=== PATIENT | female | born 1970 | race Caucasian/White ===

== ENCOUNTER 2025-01-03 12:54 | Outpatient (OUT) | payer OTHER, SELFPAY | END 2025-01-03 12:55 | disposition home or self-care (01) | LOC: WC 12:54 | PROVIDERS: PCP Internal Medicine; Visit Provider Physician Assistant | DX: E10.621 Type 1 diabetes mellitus with foot ulcer (principal); L97.521 Non-pressure chronic ulcer of other part of left foot limited to breakdown of skin | CPT/HCPCS: 11042 ==

== ENCOUNTER 2025-01-16 10:26 | Outpatient (OUT) | payer OTHER, SELFPAY | END 2025-01-16 10:27 | disposition home or self-care (01) | LOC: WC 10:26 | PROVIDERS: PCP Internal Medicine; Visit Provider Physician Assistant | DX: E10.621 Type 1 diabetes mellitus with foot ulcer (principal); L97.521 Non-pressure chronic ulcer of other part of left foot limited to breakdown of skin | CPT/HCPCS: G0463 ==

== ENCOUNTER 2025-02-06 15:10 | Outpatient (OUT) | payer OTHER, SELFPAY ==
--- OUTSIDE RECORDS SUMMARY | 2025-02-06 15:33 | XMS_ITS | CCD ---
Author Organization [facility] Care Team Providers [place] Expert Name Role Phone Sherrill Carlin Primary Care Provider [phone] Sherrill Carlin Attending Provider [phone] DO Sherrill Carlin Primary Care Provider [phone] DO Sherrill Carlin Attending Provider MD Buddy Jean Attending Provider Buddy Jean Unavailable DR SHERRILL CARLIN Attending Unavailable RAEGAN, DR MCCARTNEY Admitting Unavailable DR SHERRILL CARLIN Primary Care Unavailable RAEGAN, DR MCCARTNEY Consulting Unavailable JOSS SOARES Consulting Unavailable IVORY KING Consulting Unavailable DO Sherrill Carlin Primary Care Provider MD Buddy Jean Attending Provider SHERRILL CARLIN Referring Unavailable SHERRILL CARLIN Primary Care Unavailable DO Sherrill Carlin Primary Care Provider TONY Avila Attending Provider DO Sherrill Carlin Primary Care Provider MD Buddy Jean Attending Provider Sherrill Carlin Primary Care Unavailable Buddy Jean Attending Unavailable Buddy Jean Admitting Unavailable Rodger Avila Attending Unavailable Rodger Avila Admitting Unavailable Sherrill Carlin Primary Care Unavailable Unavailable Primary Care Provider UnavailGHANSHYAM Sofia Attending Unavailable Sherrill Carlin DO Primary Care Provider [phone] Buddy Jean MD Attending Provider [phone] Sherrill Carlin DO Primary Care Provider SHERRILL THAKUR Attending Unavailable YUHAS, SHERRILL L Referring Unavailable YUHAS, SHERRILL L Primary Care Unavailable YUHAS, SHERRILL L Referring Unavailable YUHAS, SHERRILL L Primary Care Unavailable NICHOLE, SHERRILL C Referring Unavailable YUHAS, SHERRILL L Primary Care Unavailable NICHOLE, SHERRILL Daniels Referring Unavailable YUHAS, SHERRILL L Primary Care Unavailable SHEFALI BAILEY Attending Unavailable YUHAS, SHERRILL L Referring Unavailable YUHAS, SHERRILL L Primary Care Unavailable SHEFALI BAILEY Referring Unavailable YUHAS, SHERRILL L Primary Care Unavailable YUHAS, SHERRILL L Attending Unavailable YUHAS, SHERRILL L Referring Unavailable YUHAS, SHERRILL L Primary Care Unavailable YUHAS, SHERRILL L Attending Unavailable YUHAS, SHERRILL L Referring Unavailable YUHAS, SHERRILL L Primary Care Unavailable Unavailable Unavailable Unavailable Allergies Allergy Classification Reported Allergen(s) Allergy Type Date of Onset Reaction(s) Facility (20 sources) Morphine; Translations: [MORPHINE] Drug Allergy 8 Nausea And Vomiting, Vomiting [facility] (18 sources) Shellfish Propensity to adverse reactions 8 [facility] Other (1 source) Morphine Drug Allergy 4 [facility] Repository (1 source) Shellfish Drug allergy (disorder) 4 [facility] (20 sources) brimonidine; Translations: [BRIMONIDINE] Drug Allergy 2 [facility] (18 sources) Morphine; Translations: [MORPHINE SULFATE] Drug Allergy 2 [facility] (2 sources) SHELLFISH CONTAINING PRODUCTS; Translations: [SHELLFISH CONTAINING PRODUCTS] Propensity to adverse reactions to food (disorder) 8 [facility] (14 sources) Shellfish; Translations: [shellfish derived] Allergy to substance 4 [facility] (1 source) Morphine Drug Allergy 4 [facility] Repository (3 sources) Shellfish Propensity to adverse reactions 8 [facility] Medications Current Medications Medication Drug Class(es) Dates Sig (Normalized) Sig (Original) ascorbic acid 500 mg chewable tablet (13 sources) Vitamin C Start: 04-03-2024 take 1 tablet by mouth once daily as needed Ascorbic Acid (Vitamin C) 500 mg tablet,chewable Active 500 MG PO Daily as needed April 02, 2024 11:00pm atorvastatin 80 mg oral tablet (20 sources) HMG-CoA Reductase Inhibitor Start: 10-29-2024 take 1 tablet by mouth once daily after dinner atorvastatin (LIPITOR) 80 mg tablet Indications: Mixed hyperlipidemia Take 1 tablet (80 mg total) by mouth daily after dinner. 90 tablet 10/29/2024 Active Start: 04-03-2024 End: 09-25-2024 take 2 tablets by mouth once daily Atorvastatin 40 mg tablet Discontinued 80 MG PO Daily April 02, 2024 11:00pm September 25, 2024 7:56am Start: 04-03-2024 End: 09-25-2024 take 80 mg by mouth once daily Atorvastatin Discontinu ed 80 MG PO Daily April 03, 2024 12:00am September 25, 2024 8:56am Start: 08-23-2023 End: 10-29-2024 take 1 tablet by mouth once daily at bedtime Atorvastatin 80 mg tablet Active 80 MG PO Daily at bedtime September 24, 2024 11:00pm take 1 tablet by lanre th every twenty-four hours Atorvastatin Calcium 40 MG 1 tablet Orally Once a day Active biotin 10 mg oral tablet (20 sources) Start: 04-03-2024 take 1 tablet by mouth once daily Biotin 10 mg tablet Active 10 MG PO Daily April 02, 2024 11:00pm biotin 1 mg caps ule Take by mouth. Active take 1 tablet by lanre th every twenty-four hours Biotin Maximum Strength 81812 MCG 1 capsule Orally Once a day Active cetirizine hydrochloride 10 mg oral tablet (20 sources) Histamine-1 Receptor Antagonist Start: 04-03-2024 take 1 tablet by mouth once daily Cetirizine 10 mg tablet Active 10 MG PO Daily April 02, 2024 11:00pm cholecalciferol 0.05 mg oral tablet (13 sources) Vitamin D Start: 04-03-2024 take 1 tablet by mouth once daily Cholecalciferol (Vitamin D3) 50 mcg (2,000 unit) tablet Active 50 MCG PO Daily April 02, 2024 11:00pm clobetasol propionate 0.5 mg/ml topical cream (20 sources) Corticosteroid clobetasoL (TEMOVATE) 0.05 % cream clobetasol 0.05 % topical cream Active End: 11-19-2024 clobetasoL (TEMOVATE) 0.05 % lotion clobetasol 0.05 % lotion 11/19/2024 Discontinued (Patient Stopped On Own) dorzolamide / Timolol (19 sources) Carbonic Anhydrase Inhibitor, beta-Adrenergic Sara Start: 09-25-2024 take 1 drop(s) into the eye(s) once Dorzolamide-Timolol Active 1 DROPS OPHTHALMIC Once September 25, 2024 12:00am Start: 02-09-2024 take 1 drop(s) into the eye(s) every twelve hours dorzolamide-timoloL (COSOPT) 22.3-6.8 mg/mL ophthalmic solution Administer 1 drop into the left eye every 12 (twelve) hours. 30 mL 3 02/09/2024 Active Start: 02-15-2023 take 1 drop(s) into the eye(s) in the morning dorzolamide-timolol (Cosopt) 2-0.5 % ophthalmic solution Administer 1 drop into the left eye in the morning and 1 drop before bedtime. 02/15/2023 Active Start: 02-15-2023 End: 02-09-2024 take 1 drop(s) into the eye(s) twice daily dorzolamide-timoloL (COSOPT) 22.3-6.8 mg/mL ophthalmic solution INSTILL 1 DROP IN THE LEFT EYE TWICE A DAY 30 mL 3 02/15/2023 02/09/2024 Discontinued (Reorder) Dorzolamide-Timolol 22.3-6.8 mg/mL drops (2 sources) Start: 09-25-2024 take 1 drop(s) into the eye(s) once Dorzolamide-Timolol 22.3-6.8 mg/mL drops Active 1 DROPS OPHTHALMIC Once September 24, 2024 11:00pm ergocalciferol 1.25 mg oral capsule (19 sources) Provitamin D2 Compound ergocalciferol (DRISDOL) 1,250 mcg (50,000 unit) capsule Vitamin D2 1,250 mcg (50,000 unit) capsule Active ergocalciferol ( Vitamin D-2) 1.25 MG (33509 UT) capsule Take 50,000 Units by mouth. Active ergocalciferol ( DRISDOL) 1,250 mcg (50,000 unit) capsule Vitamin D2 1,250 mcg (50,000 unit) capsule 0 Active Fluocinonide (12 sources) Corticosteroid Start: 09-25-2024 Fluocinonide 0 .05 % solution Active TOPICAL September 24, 2024 11:00pm Start: 09-25-2024 Fluocinonide A ctive TOPICAL September 25, 2024 12:00am Start: 08-22-2024 End: 10-01-2024 fluocinonide (LIDEX) 0.05 % external solution APPLY TO SCALP 1 OR 2 TIMES DAILY NEEDED FOR ITCHING. AVOID FACE AND NECK 10/01/2024 Active Start: 06-06-2023 End: 01-12-2024 fluocinonide (LIDEX) 0.05 % external solution Apply 1 Application topically in the morning. 0 06/06/2023 01/12/2024 Discontinued (Therapy completed) gabapentin 100 mg oral capsule (20 sources) Anti-epileptic Agent Start: 09-25-2024 End: 09-25-2024 take 1 capsule by mouth once daily as needed Gabapentin 100 mg capsule Active 100 MG PO Daily as needed September 25, 2024 7:58am Start: 11-03-2022 gabapentin (NE URONTIN) 300 mg capsule Indications: Neuropathy TAKE 1 CAPSULE DAILY 90 capsule 3 11/03/2022 Active insulin lispro 100 unt/ml injectable solution (18 sources) Insulin Analog Start: 09-30-2023 HumaLOG U-100 Insulin 100 unit/mL injection Indications: Type 1 diabetes mellitus with nephropathy ([facility]) USE 60 UNITS DAILY VIA INSULIN PUMP 90 mL 3 09/30/2023 Active HumaLOG 100 UNIT /ML Subcutaneous pump with sliding scale Active Insulin Lispro (Humalog U-10 0 Insulin) 100 unit/mL solution (20 sources) Start: 11-14-2024 Insulin Lispro (Humalog U-100 Insulin) 100 unit/mL solution Active 0 SUBCUT .insulin pump 50 November 14, 2024 12:02pm 50 units SQ per day via insulin pump Start: 11-14-2024 End: 11-14-2024 Insulin Lispro (Humalog U-10 0 Insulin) 100 unit/mL solution Discontinued 0 SUBCUT .insulin pump 50 November 14, 2024 12:01pm November 14, 2024 12:02pm 30 units SQ per day via insulin pump Start: 10-01-2024 End: 11-14-2024 Insulin Lispro (Humalog U-10 0 Insulin) 100 unit/mL solution Discontinued 0 SUBCUT .insulin pump October 01, 2024 8:48am November 14, 2024 12:01pm 30 units SQ per day via insulin pump Start: 10-01-2024 Insulin Lispro (Humalog U-100 Insulin) 100 unit/mL solution Active 0 SUBCUT .insulin pump October 01, 2024 8:48am 30 units SQ per day via insulin pump Start: 09-25-2024 End: 10-01-2024 Insulin Lispro (Humalog U-10 0 Insulin) 100 unit/mL solution Discontinued 1 sliding scale dose SUBCUT .insulin pump September 25, 2024 7:57am October 01, 2024 8:52am Start: 09-25-2024 Insulin Lispro (Humalog U-100 Insulin) 100 unit/mL solution Active 1 sliding scale dose SUBCUT .insulin pump September 25, 2024 8:57am Start: 04-03-2024 End: 09-25-2024 Insulin Lispro (Humalog U-10 0 Insulin) 100 unit/mL solution Discontinued 1 sliding scale dose SUBCUT .COMPLEX April 02, 2024 11:00pm September 25, 2024 7:57am ; Start: 04-03-2024 End: 09-25-2024 Insulin Lispro (Humalog U-10 0 Insulin) 100 unit/mL solution Discontinued 1 sliding scale dose SUBCUT .COMPLEX April 03, 2024 12:00am September 25, 2024 8:57am ; Start: 04-03-2024 Insulin Lispro (Humalog U-100 Insulin) 100 unit/mL solution Active 1 sliding scale dose SUBCUT .COMPLEX April 03, 2024 12:00am ; insulin lispro (HumaLOG) 100 UNIT/ML patient supplied pump (3 sources) insulin lispro ( HumaLOG) 100 UNIT/ML patient supplied pump Inject under the skin continuously. Active ketoconazole 20 mg/ml medicated shampoo (20 sources) Azole Antifungal Start: 10-01-2024 ketoconazole (NIZOral) 2 % shampoo Indications: Other seborrheic dermatitis LATHER ON WET HAIR AND LEAVE ON FOR 5 MINUTES THEN RINSE. USE 2 TO 3 TIMES A WEEK 360 mL 11 10/01/2024 Active Start: 10-01-2024 ketoconazole ( NIZOral) 2 % shampoo Indications: Other seborrheic dermatitis LATHER ON WET HAIR AND LEAVE ON FOR 5 MINUTES THEN RINSE. USE 2 TO 3 TIMES A WEEK 360 mL 11 10/01/2024 Active Start: 09-25-2024 Ketoconazole 2 % shampoo Active TOPICAL September 24, 2024 11:00pm Start: 09-25-2024 Ketoconazole A ctive TOPICAL September 25, 2024 12:00am Start: 08-22-2024 End: 10-01-2024 ketoconazole (NIZOral) 2 % s hampoo Indications: Other seborrheic dermatitis LATHER ON WET HAIR AND LEAVE ON FOR 5 MINUTES THEN RINSE. USE 2 TO 3 TIMES A WEEK 360 mL 3 08/22/2024 10/01/2024 Discontinued krill oil 500 mg oral capsule (20 sources) Start: 04-03-2024 End: 09-25-2024 take 1 capsule by mouth once daily Krill Oil 500 mg capsule Active 500 MG PO daily September 25, 2024 7:54am Start: 04-03-2024 End: 09-25-2024 Krill Oil Discontinued MG PO April 03, 2024 12:00am September 25, 2024 8:57am Krill Oil 300 MG capsule Take by mouth. Active [id number] (KRILL OIL) 045-58-36-50 mg capsule Take by mouth. Active [id number] z-txy-[id number] (KRILL OIL) 185-46-06-50 mg capsule Take by mouth. 0 Active Krill Oil 350 MG as directed Orally Active Krill Oil 350 MG as directed Orally Not-Taking L-METHYLFOLATE CALCIUM PO (3 sources) L-METHYLFOLATE CALCIUM PO Metanx (algal oil) 3 mg-35 mg-2 mg-90.314 mg capsule Active latanoprost 0.05 mg/ml ophthalmic solution (6 sources) Prostaglandin Analog Start: 023 take 1 drop(s) into the eye(s) at bedtime latanoprost (Xalatan) 0.005 % ophthalmic solution Administer 1 drop into the left eye at bedtime. 08/05/2023 Active Start: 08-05-2023 End: 01-12-2024 take 1 drop(s) into the eye(s) at bedtime latanoprost (XALATAN) 0.005 % ophthalmic solution INSTILL 1 DROP IN THE LEFT EYE AT BEDTIME, DISCARD 42 DAYS AFTER OPENING 7.5 mL 3 08/05/2023 01/12/2024 Discontinued (Discontinued by another clinician) melatonin 3 mg oral tablet (1 source) take 1 tablet by mouth once daily at bedtime as needed Melatonin 3 MG 1 tablet at bedtime as needed Orally Once a day Active Multi For Her (2 sources) Multi For Her Or ally Active Multivitamin preparation (11 sources) Start: 04-03-2024 take 1 tablet by mouth once daily Multivitamin Active 1 TAB PO Daily April 03, 2024 12:00am Multivitamin tablet (2 sources) Start: 04-03-2024 take 1 tablet by mouth once daily Multivitamin tablet Active 1 TAB PO Daily April 02, 2024 11:00pm pregabalin 100 mg oral capsule (20 sources) Start: 04-03-2024 End: 12-03-2024 take 1 capsule by mouth three times daily Pregabalin 100 mg capsule Active 100 MG PO Three times daily 270 90 December 03, 2024 12:24pm Start: 03-05-2024 pregabalin (LY JYOTI) 100 mg capsule Indications: Diabetic peripheral neuropathy (CMS-HCC) TAKE 1 CAPSULE THREE TIMES A DAY 90 capsule 2 03/05/2024 Active Start: 03-05-2024 pregabalin (LY JYOTI) 100 mg capsule Indications: Diabetic peripheral neuropathy (CMS-HCC) TAKE 1 CAPSULE THREE TIMES A DAY 90 capsule 2 03/05/2024 Active Start: 09-21-2023 End: 06-12-2024 pregabalin (LYRICA) 100 mg c apsule Indications: Diabetic peripheral neuropathy (CMS-HCC) TAKE 1 CAPSULE THREE TIMES A DAY 90 capsule 2 12/13/2023 02/28/2024 Discontinued tacrolimus 0.001 mg/mg topical ointment (6 sources) Calcineurin Inhibitor Immunosuppressant End: 01-12-2024 tacrolimus (Protopic) 0.1 % ointment Apply topically 2 (two) times a day. Active Vitamin C 500 MG (2 sources) take 1 tablet by mouth once daily as needed Vitamin C 500 MG 1 tablet Orally Once a day PRN Active take 1 tablet by mouth once zulema y Vitamin C 500 MG 1 tablet Orally Once a day Active Vitamin D 2000 UNIT (2 sources) take 1 tablet by lanre th once daily Vitamin D 2000 UNIT 1 tablet Orally Once a day Active take 1 tablet by mouth once zulema y Vitamin D 2000 UNIT 1 tablet Orally Once a day Not-Taking Completed/Discontinued Medications Medication Drug Class(es) Dates Sig (Normalized) Sig (Original) apple cider vinegar 500 mg oral tablet (13 sources) Start: 04-03-2024 End: 06-27-2024 take 1 tablet by mouth three times daily Apple Cider Vinegar 500 mg tablet Discontinued 0 PO .COMPLEX April 02, 2024 11:00pm June 27, 2024 9:08am orally tid; Biotin Maximum Strength 70188 MCG (1 source) take 1 capsule by mouth once daily Biotin Maximum Strength 40710 MCG 1 capsule Orally Once a day Not-Taking 2 ml dupilumab 150 mg/ml prefilled syringe (20 sources) Interleukin-4 Receptor alpha Antagonist Start: 07-12-2023 Dupixent 300 MG/2ML injection Indications: Other atopic dermatitis Inject 1 Syringe (300 mg) under the skin every 14 (fourteen) days. 2 each 07/12/2023 Active Start: 01-18-2022 End: 09-25-2024 Dupilumab 300 mg/2 mL syring e Discontinued 300 MG SUBCUT June 27, 2024 9:10am September 25, 2024 7:57am Dupixent hydrocortisone 0.025 mg/mg topical ointment (17 sources) Corticosteroid End: 11-19-2024 hydrocortisone (HYTONE) 2.5 % ointment Apply topically 2 (two) times a day as needed. 11/19/2024 Discontinued (Patient Stopped On Own) [id number]-algal oil (FOLTANX RF/MENTAX) 3 mg-35 mg-2 mg -90.314 mg capsule (16 sources) End: 11-19-2024 olcnnlckw-F9-moI84-algal oil (FOLTANX RF/MENTAX) 3 mg-35 mg-2 mg -90.314 mg capsule Metanx (algal oil) 3 mg-35 mg-2 mg-90.314 mg capsule 11/19/2024 Discontinued (Patient Stopped On Own) [id number] 12-algal oil (FOLTANX RF/MENTAX) 3 mg-35 mg-2 mg -90.314 mg capsule Metanx (algal oil) 3 mg-35 mg-2 mg-90.314 mg capsule Active tbsmkyaim-[id number] 12-algal oil (FOLTANX RF/MENTAX) 3 mg-35 mg-2 mg -90.314 mg capsule Metanx (algal oil) 3 mg-35 mg-2 mg-90.314 mg capsule 0 Active saccharomyces boulardii 250 mg oral capsule (13 sources) Start: 04-03-2024 End: 06-27-2024 take 1 capsule by mouth twice daily Saccharomyces Boulardii (Daily Probiotic (S. Boulardii)) 250 mg capsule Discontinued 250 MG PO Twice daily April 02, 2024 11:00pm June 27, 2024 9:09am Semaglutide (11 sources) Start: 04-30-2024 End: 08-28-2024 Semaglutide 0.25 mg or 0.5 mg (2 mg/3 mL) pen injector Discontinued 0.25 MG SUBCUT every week April 29, 2024 11:00pm August 28, 2024 9:27am [facility] Start: 04-30-2024 End: 08-28-2024 inject 0.25 mg by subcutaneous injection every week Semaglutide Discontinued 0.25 MG SUBCUT every week April 30, 2024 12:00am August 28, 2024 10:27am [facility] Start: 04-30-2024 inject 0.25 mg by price bcutaneous injection every week Semaglutide Active 0.25 MG SUBCUT every week April 30, 2024 12:00am [facility] Semaglutide Base (6 sources) Start: 05-15-2024 End: 06-27-2024 inject 1 mL by subcutaneous injection every week Semaglutide Base Discontinued 0.25 ML SUBCUT every week May 15, 2024 12:00am June 27, 2024 10:08am [facility] Pre-filled Syringes using Semaglutide Base. Dispense 1 mL = (Four 0.25 mL pre-filled syringes) Start: 05-15-2024 inject 1 mL by subcu taneous injection every week Semaglutide Base Active 0.25 ML SUBCUT every week May 15, 2024 12:00am [facility] Pre-filled Syringes using Semaglutide Base. Dispense 1 mL = (Four 0.25 mL pre-filled syringes) Semaglutide Base 0.3 mg/0.25 mL (2 sources) Start: 05-15-2024 End: 06-27-2024 inject 1 mL by subcutaneous injection every week Semaglutide Base 0.3 mg/0.25 mL Discontinued 0.25 ML SUBCUT every week May 14, 2024 11:00pm June 27, 2024 9:08am [facility] Pre-filled Syringes using Semaglutide Base. Dispense 1 mL = (Four 0.25 mL pre-filled syringes) sodium zirconium cyclosilicate 39468 mg powder for oral suspension (20 sources) Start: 04-03-2024 End: 06-27-2024 Sodium Zirconium Cyclosilicate 10 gram powder in packet Discontinued 10 GM PO as needed April 02, 2024 11:00pm June 27, 2024 9:10am Start: 10-31-2023 End: 11-19-2024 LOKELMA 5 gram packet Indica tions: Chronic hyperkalemia MIX AND DRINK 1 PACKET TWO TIMES A WEEK 50 packet 3 01/11/2024 Active Lokelma 10 GM 1 packet dissolved in water Orally 2xweek Active Problems Active Problems Problem Classification Problem Date Documented Date Episodic/Chronic Administrative/socia l admission (18 sources) Patient encounter status; Translations: [Dietary counseling and surveillance] 04-30-2024 Episodic Allergic reactions (18 sources) Atopic dermatitis; Translations: [Other atopic dermatitis] Onset: 2 10-01-2024 Chronic Cataract (2 sources) Presence of intraocular lens; Translations: [Pseudophakia of left eye] Onset: 4 02-09-2024 Chronic Chronic kidney disease (20 sources) Chronic kidney disease stage 3; Translations: [Chronic kidney disease, stage 3 (moderate)] Onset: 2 05-15-2024 Chronic Chronic kidney disease (5 sources) Chronic kidney disease; Translations: [Chronic kidney disease, stage III (moderate)] Onset: 4 Deficiency and other anemia (2 sources) Anemia of renal disease; Translations: [Anemia in chronic kidney disease] Chronic Deficiency and other anemia (2 sources) Anemia in chronic kidney disease; Translations: [Anemia in chronic kidney disease] Chronic Deficiency and other anemia (3 sources) Anemia in chronic kidney disease; Translations: [Anemia in chronic kidney disease] Onset: 4 Chronic Diabetes mellitus with complications (20 sources) Disorder of kidney due to diabetes mellitus; Translations: [Type 2 diabetes mellitus with diabetic chronic kidney disease] Onset: 2 Chronic Diabetes mellitus without complication (20 sources) Patient encounter status; Translations: [Encounter for fitting and adjustment of insulin pump] Onset: 3 04-30-2024 Chronic Disorders of lipid metabolism (20 sources) Dyslipidemia; Translations: [Hyperlipidemia, unspecified] Onset: 2 Chronic Esophageal disorders (16 sources) Gastroesophageal reflux disease; Translations: [Gastro-esophageal reflux disease without esophagitis] Onset: 2 08-20-2022 Chronic Essential hypertension (2 sources) Hypertensive disorder; Translations: [Hypertension, unspecified] Chronic Fluid and electrolyte disorders (20 sources) Hyperkalemia; Translations: [Hyperkalemia] Onset: 2 Episodic Glaucoma (20 sources) Glaucoma; Translations: [Unspecified glaucoma] Onset: 2 08-20-2022 Chronic Headache; including migraine (16 sources) Migraine; Translations: [Migraine, unspecified, not intractable, without status migrainosus] Onset: 2 08-20-2022 Chronic Osteoarthritis (3 sources) Osteoarthritis of right patellofemoral joint; Translations: [Unilateral primary osteoarthritis, right knee] Onset: 4 11-19-2024 Chronic Other aftercare (11 sources) Long-term current use of insulin; Translations: [terminal operations manager (current) use of insulin] 04-30-2024 Episodic Other aftercare (7 sources) terminal operations manager (current) use of insulin; Translations: [Long-term (current) use of insulin] 04-30-2024 Episodic Other congenital anomalies (1 source) Other anophthalmos; Translations: [Other anophthalmos] Onset: 4 Chronic Other congenital anomalies (2 sources) Anophthalmos of right eye; Translations: [Other anophthalmos] 02-09-2024 Chronic Other diseases of kidney and ureters (5 sources) Secondary hyperparathyroidism; Translations: [Secondary hyperparathyroidism of renal origin] 09-25-2024 Chronic Other diseases of kidney and ureters (5 sources) Secondary hyperparathyroidism of renal origin; Translations: [Secondary hyperparathyroidism (of renal origin)] Onset: 4 Chronic Other inflammatory condition of skin (2 sources) Seborrheic dermatitis; Translations: [Other seborrheic dermatitis] 10-01-2024 Episodic Other nervous system disorders (1 source) Other chronic pain; Translations: [OTHER CHRONIC PAIN] Onset: 3 Chronic Other nervous system disorders (7 sources) Peripheral nerve disease ; Translations: [Polyneuropathy, unspecified] 05-28-2024 Chronic Other nervous system disorders (16 sources) Neuropathy; Translations: [Polyneuropathy, unspecified] Onset: 2 11-03-2022 Chronic Other non-traumatic joint disorders (1 source) Pain in right hip; Translations: [PAIN IN RIGHT HIP] Onset: 3 Episodic Other non-traumatic joint disorders (1 source) Pain in right knee; Translations: [PAIN IN RIGHT KNEE] Onset: 3 Episodic Other non-traumatic joint disorders (1 source) Knee pain Onset: 4 Episodic Other nutritional; endocrine; and metabolic disorders (2 sources) Hyperuricemia without signs of inflammatory arthritis and tophaceous disease; Translations: [Hyperuricemia without signs of inflammatory arthritis and tophaceous disease] Onset: 4 Episodic Other nutritional; endocrine; and metabolic disorders (5 sources) Overweight in adulthood with body mass index of 25 or more but less than 30; Translations: [Body mass index (BMI) 29.0-29.9, adult] 04-30-2024 Episodic Other nutritional; endocrine; and metabolic disorders (4 sources) Body mass index (BMI) 29.0-29.9, adult; Translations: [Body Mass Index 29.0-29.9, adult] 04-30-2024 Episodic Other nutritional; endocrine; and metabolic disorders (7 sources) Body mass index 25-29 - overweight; Translations: [Overweight] 05-15-2024 Episodic Other nutritional; endocrine; and metabolic disorders (8 sources) Overweight; Translations: [Overweight] 05-15-2024 Episodic Other nutritional; endocrine; and metabolic disorders (1 source) Body mass index (BMI) 27.0-27.9, adult; Translations: [Body Mass Index 27.0-27.9, adult] 11-14-2024 Episodic Other skin disorders (2 sources) Epidermoid cyst; Translations: [Epidermal cyst] 10-01-2024 Episodic Other upper respiratory disease (16 sources) Allergic rhinitis; Translations: [Allergic rhinitis, unspecified] Onset: 2 08-20-2022 Chronic Spondylosis; intervertebral disc disorders; other back problems (8 sources) Spinal stenosis, lumbar region with neurogenic claudication; Translations: [Spinal stenosis of lumbar region] Onset: 3 Episodic Unclassified (1 source) Eye Exam Onset: 4 Past or Other Problems Problem Classification Problem Date Documented Da te Episodic/Chronic Mood disorders (16 sources) Mood disorders Onset: 08-23-2023 Resolved: 01-12-2024 01-12-2024 Results Test Name Value Interpretation Reference Range Facility No Panel Informationon 11-14 Bedside Glucose 150 [facility] Albumin [Mass/volume] in Ser um or Plasma by Bromocresol green (BCG) dye binding methoOrdered By: Buddy Jean on 09-21-2024 Albumin BCG dye [Mass/Vol] 3.8 g/dL 3.5-5.7 [facility] Albumin BCG dye [Mass/Vol] Albumin [Mass/volume] in Serum or Plasma by Bromocresol green (BCG) dye binding metho 3.5-5.7 [facility] Appearance of UrineOrdered B y: Buddy Jean on 09-21-2024 Appearance (U) Urine appearance Clear [facility] Bacteria [Presence] in Urine by AutomatedOrdered By: Buddy Jean on 09-21-2024 Bacteria Auto Ql (U) Rare [HPF] None Seen [facility] Bacteria Auto Ql (U) Bacteria [Presence] in Urine by Automated None Seen [facility] Bilirubin Test strip Ql (U)O rdered By: Buddy Jean on 09-21-2024 Bilirubin Ql (U) Negative Negative [facility] Bilirubin Ql (U) Bilirubin.total [Presence] in Urine by Test strip Negative [facility] Calcium [Mass/volume] in Ser um or PlasmaOrdered By: Buddy Jean on 09-21-2024 Calcium [Mass/Vol] 9.9 mg/dL Normal 8.6-10.3 [facility] Comment on above: Order Comment: Reaso n for Exam Chronic kidney disease, stage III (moderate);Type 1 diabetes Performed By: #### M G, URIC, [id number], ZEINAB, FE and TIBC, RENAL #### [facility] [address] Calcium [Mass/Vol] Calcium [Mass/volume ] in Serum or Plasma 8.6-10.3 [facility] Carbon dioxide, total [Moles /volume] in Serum or PlasmaOrdered By: Buddy Jean on 09-21-2024 CO2 [Moles/Vol] 31.0 mmol/L Normal 21.0-31.0 [facility] Comment on above: Order Comment: Reaso n for Exam Chronic kidney disease, stage III (moderate);Type 1 diabetes Performed By: #### M G, URIC, [id number], ZEINAB, FE and TIBC, RENAL #### [facility] [address] [place] [address] [place] CO2 [Moles/Vol] Carbon dioxide, tota l [Moles/volume] in Serum or Plasma 21.0-31.0 [facility] Chloride [Moles/volume] in S violetta or PlasmaOrdered By: Buddy Jean on 09-21-2024 Chloride [Moles/Vol] 106 mmol/L Normal 98-107 [facility] Comment on above: Order Comment: Reaso n for Exam Chronic kidney disease, stage III (moderate);Type 1 diabetes Performed By: #### M G, URIC, [id number], ZEINAB, FE and TIBC, RENAL #### [facility] [address] [place] [id number] [place] Chloride [Moles/Vol] Chloride [Moles/volume] in Serum or Plasma 98-107 [facility] Color Auto (U)Ordered By: Ab bijal Jean on 09-21-2024 Color (U) Color of Urine by Auto Yellow [facility] Color of Urine by AutoOrdere d By: Buddy Jean on 09-21-2024 Color (U) Yellow Normal Yellow [facility] Comment on above: Order Comment: Reaso n for Exam Chronic kidney disease, stage III (moderate);Type 1 diabetes Name Collection Type:: Clean-Voided Midstream Performed By: #### A DDONUAPLUS, CUU #### [facility] [address] [place] [address] [place] Creatinine [Mass/volume] in Serum or PlasmaOrdered By: Buddy Jean on 09-21-2024 Creatinine [Mass/Vol] 1.11 mg/dL Normal 0.60-1.20 [facility] Comment on above: Order Comment: Reaso n for Exam Chronic kidney disease, stage III (moderate);Type 1 diabetes Performed By: #### M G, URIC, [id number], ZEINAB, FE and TIBC, RENAL #### [facility] [address] [place], [place] [id number] [place] Creatinine [Mass/Vol] Creatinine [Mass/volume] in Serum or Plasma 0.60-1.20 [facility] Creatinine [Mass/volume] in UrineOrdered By: Buddy Jean on 09-21-2024 Creatinine (U) [Mass/Vol] 180.00 mg/dL [facility] Comment on above: No reference range e stablished Creatinine (U) [Mass/Vol] Creatinine [Mass/volume] in Urine [facility] Comment on above: No reference range e stablished Dipstick and Microscopicon 1 Bacteria,Urine Rare Normal None Seen [facility] Comment on above: Order Comment: Reaso n for Exam Chronic kidney disease, stage III (moderate);Type 1 diabetes Name Collection Type:: Clean-Voided Midstream Performed By: #### A DDONUAPLUS, CUU #### [facility] [address] [place] [address] [place] Bilirubin,Urine Negative Normal Negative [facility] Comment on above: Order Comment: Reaso n for Exam Chronic kidney disease, stage III (moderate);Type 1 diabetes Name Collection Type:: Clean-Voided Midstream Performed By: #### A DDONUAPLUS, CUU #### [facility] [address] Glucose Ql (U) Normal Normal Normal [facility] Comment on above: Order Comment: Reaso n for Exam Chronic kidney disease, stage III (moderate);Type 1 diabetes Name Collection Type:: Clean-Voided Midstream Performed By: #### A DDONUAPLUS, CUU #### [place] [address] [place] Hyaline Casts,Urine 0-8 Normal 0-8 [facility] Comment on above: Order Comment: Reaso n for Exam Chronic kidney disease, stage III (moderate);Type 1 diabetes Name Collection Type:: Clean-Voided Midstream Performed By: #### A DDONUAPLUS, CUU #### [place] [address] [place] Mucus,Urine Rare Normal [facility] Comment on above: Order Comment: Reaso n for Exam Chronic kidney disease, stage III (moderate);Type 1 diabetes Name Collection Type:: Clean-Voided Midstream Result Comment: PERF ORMED BY: [place] [address] PATHOLOGIST [employer] SUPERVISOR VELASQUEZ CARLOS M.D. Performed By: #### A DDONUAPLUS, CUU #### [place] [address] [place] Nitrite,Urine Negative Normal Negative [facility] Comment on above: Order Comment: Reaso n for Exam Chronic kidney disease, stage III (moderate);Type 1 diabetes Name Collection Type:: Clean-Voided Midstream Performed By: #### A DDONUAPLUS, CUU #### [place] [address] [place] Occult Blood,Urine Negative Normal Negative [facility] Comment on above: Order Comment: Reaso n for Exam Chronic kidney disease, stage III (moderate);Type 1 diabetes Name Collection Type:: Clean-Voided Midstream Performed By: #### A DDONUAPLUS, CUU #### [facility] [address] Protein,Urine Negative Normal Negative [facility] Comment on above: Order Comment: Reaso n for Exam Chronic kidney disease, stage III (moderate);Type 1 diabetes Name Collection Type:: Clean-Voided Midstream Performed By: #### A DDONUAPLUS, CUU #### [place] [address] [place] RBC,Urine 1-2 Normal 0-4 [facility] Comment on above: Order Comment: Reaso n for Exam Chronic kidney disease, stage III (moderate);Type 1 diabetes Name Collection Type:: Clean-Voided Midstream Performed By: #### A DDONUAPLUS, CUU #### [place] [address] [place] Specificy [place],Urine 1.018 Normal 1.001-1.030 [facility] Comment on above: Order Comment: Reaso n for Exam Chronic kidney disease, stage III (moderate);Type 1 diabetes Name Collection Type:: Clean-Voided Midstream Performed By: #### A DDONUAPLUS, CUU #### [address] Squamous Epithelial Cell,Urine 5-9 High 0-2 [facility] Comment on above: Order Comment: Reaso n for Exam Chronic kidney disease, stage III (moderate);Type 1 diabetes Name Collection Type:: Clean-Voided Midstream Performed By: #### A DDONUAPLUS, CUU #### [place] [address] [place] Urobilinogen,Urine Normal Normal Normal [facility] Comment on above: Order Comment: Reaso n for Exam Chronic kidney disease, stage III (moderate);Type 1 diabetes Name Collection Type:: Clean-Voided Midstream Performed By: #### A DDONUAPLUS, CUU #### [facility] [address] WBC,Urine 5-9 High 0-4 [facility] Comment on above: Order Comment: Reaso n for Exam Chronic kidney disease, stage III (moderate);Type 1 diabetes Name Collection Type:: Clean-Voided Midstream Performed By: #### A DDONUAPLUS, CUU #### [facility] [address] [place] [address] Epithelial cells.squamous [# /area] in Urine sediment by Automated countOrdered By: Buddy Miranda on 09-21-2024 Epithelial cells.squamous Auto (Urine sed) [#/Area] 5-9 [HPF] High 0-2 [facility] Epithelial cells.squamous Auto (Urine sed) [#/Area] Epithelial cells.squamous [#/area] in Urine sediment by Automated count High 0-2 [facility] Erythrocyte distribution wid th Auto (RBC) [Ratio]Ordered By: Buddy Miranda on 09-21-2024 Erythrocyte distribution width (RBC) [Ratio] Erythrocyte distribution width [Ratio] by Automated count 11.9-15.3 [facility] Erythrocyte distribution wid th [Ratio] by Automated countOrdered By: Buddy Miranda on 09-21-2024 Erythrocyte distribution width (RBC) [Ratio] 14.0 % Normal 11.9-15.3 [facility] Comment on above: Order Comment: Reaso n for Exam Chronic kidney disease, stage III (moderate);Type 1 diabetes Performed By: #### C BCNO #### [facility] [address] [place] [address] Erythrocytes [#/area] in Uri ne sediment by Automated countOrdered By: Buddy Miranda on 09-21-2024 RBC Auto (Urine sed) [#/Area] 1-2 [HPF] 0-4 [facility] RBC Auto (Urine sed) [#/Area] Erythrocytes [#/area] in Urine sediment by Automated count 0-4 [facility] Erythrocytes [#/volume] in B lood by Automated countOrdered By: Buddy Miranda on 09-21-2024 RBC (Bld) [#/Vol] 3.82 10*6/uL Normal 3.60-5.00 [facility] Comment on above: Order Comment: Reaso n for Exam Chronic kidney disease, stage III (moderate);Type 1 diabetes Performed By: #### C BCNO #### [facility] [address] [place] [id number] [place] Ferritin [Mass/volume] in Se rum or PlasmaOrdered By: Buddy Jean on 09-21-2024 Ferritin [Mass/Vol] 41.2 ng/mL Normal 11.0-306.8 [facility] Comment on above: Order Comment: Reaso n for Exam Chronic kidney disease, stage III (moderate);Type 1 diabetes Name Collection Type:: Clean-Voided Midstream Performed By: #### A DDONUAPLUS, CUU #### [facility] [address] [place] [place] [id number] [facility] Ferritin [Mass/Vol] Ferritin [Mass/volume] in Serum or Plasma 11.0-306.8 [facility] Glucose [Mass/volume] in Ser um or PlasmaOrdered By: Buddy Jean on 09-21-2024 Glucose [Mass/Vol] 118 mg/dL High 70-100 [facility] Comment on above: ADA recommended refe rence rangeRandom Glucose Reference Range is dependent on time and content of last meal. Glucose of more than 200 mg/dL in a nonstressed, ambulatory subject supports the diagnosis of Diabetes Mellitus. Order Comment: Reaso n for Exam Chronic kidney disease, stage III (moderate);Type 1 diabetes Result Comment: [place] Glucose Reference Range is dependent on time and content of last meal. Glucose of more than 200 mg/dL in a nonstressed, ambulatory subject supports the diagnosis of Diabetes Mellitus. ADA recommended reference range Performed By: #### M G, URIC, [id number], ZEINAB, FE and TIBC, RENAL #### [facility] [address] [place] [id number] [place] Glucose [Mass/Vol] Glucose [Mass/volume ] in Serum or Plasma High 70-100 [facility] Comment on above: ADA recommended refe rence rangeRandom Glucose Reference Range is dependent on time and content of last meal. Glucose of more than 200 mg/dL in a nonstressed, ambulatory subject supports the diagnosis of Diabetes Mellitus. Glucose [Mass/volume] in Uri ne by Test stripOrdered By: Buddy Jean on 09-21-2024 Glucose Test strip (U) [Mass/Vol] Normal mg/dL Normal [facility] Glucose Test strip (U) [Mass/Vol] Glucose [Mass/volume] in Urine by Test strip Normal [facility] Hematocrit Auto (Bld) [Volum e fraction]Ordered By: Buddy Jean on 09-21-2024 Hematocrit (Bld) [Volume fraction] Hematocrit [Volume Fraction] of Blood by Automated count 34.0-46.4 [facility] Hematocrit [Volume Fraction] of Blood by Automated countOrdered By: Buddy Jean on 09-21-2024 Hematocrit (Bld) [Volume fraction] 37.4 % Normal 34.0-46.4 [facility] Comment on above: Order Comment: Reaso n for Exam Chronic kidney disease, stage III (moderate);Type 1 diabetes Performed By: #### C BCNO #### [facility] [address] Hemoglobin Test strip Ql (U) Ordered By: Buddy Jean on 09-21-2024 Hemoglobin Ql (U) Negative Negative [facility] Hemoglobin Ql (U) Hemoglobin [Presence ] in Urine by Test strip Negative [facility] Hemoglobin [Mass/volume] in BloodOrdered By: Buddy Jean on 09-21-2024 Hemoglobin (Bld) [Mass/Vol] 12.5 g/dL Normal 11.8-15.4 [facility] Comment on above: Order Comment: Reaso n for Exam Chronic kidney disease, stage III (moderate);Type 1 diabetes Performed By: #### C BCNO #### [facility] [address] Hemoglobin (Bld) [Mass/Vol] Hemoglobin [Mass/volume] in Blood 11.8-15.4 [facility] Hemogram CBC Without Diffon 09-21-2024 Mean Corpuscular HGB Conc 33.4 g/dL Normal 32.0-35.0 [facility] Comment on above: Order Comment: Reaso n for Exam Chronic kidney disease, stage III (moderate);Type 1 diabetes Performed By: #### C BCNO #### [address] WBC (Bld) [#/Vol] 4.2 10*3/uL Normal 3.8-11.6 [facility] Comment on above: Order Comment: Reaso n for Exam Chronic kidney disease, stage III (moderate);Type 1 diabetes Performed By: #### C BCNO #### [facility] [address] [place] [address] Hyaline casts [#/area] in Ur ine sediment by Automated countOrdered By: Buddy Miranda on 09-21-2024 Hyaline casts Auto (Urine sed) [#/Area] 0-8 [LPF] 0-8 [facility] Hyaline casts Auto (Urine sed) [#/Area] Hyaline casts [#/area] in Urine sediment by Automated count 0-8 [facility] Iron [Mass/volume] in Serum or PlasmaOrdered By: Buddy Griffithsr on 09-21-2024 Iron [Mass/Vol] 50 ug/dL Normal 50-212 [facility] Comment on above: Order Comment: Reaso n for Exam Chronic kidney disease, stage III (moderate);Type 1 diabetes Name Collection Type:: Clean-Voided Midstream Performed By: #### A DDONUAPLUS, CUU #### [address] Iron [Mass/Vol] Iron [Mass/volume] i n Serum or Plasma 50-212 [facility] Iron and TIBC Profileon 08-29 % Iron Saturation 17.4 % Low 20-[address] [facility] Comment on above: Order Comment: Reaso n for Exam Chronic kidney disease, stage III (moderate);Type 1 diabetes Name Collection Type:: Clean-Voided Midstream Performed By: #### A DDONUAPLUS, CUU #### [address] Total Iron Binding Capacity 287 ug/dL Normal 255-450 [facility] Comment on above: Order Comment: Reaso n for Exam Chronic kidney disease, stage III (moderate);Type 1 diabetes Name Collection Type:: Clean-Voided Midstream Performed By: #### A YUVAL, CUU #### [facility] [address] [place] [address] Iron binding capacity [Mass/ volume] in Serum or PlasmaOrdered By: Buddy Jean on 09-21-2024 Iron binding capacity [Mass/Vol] 287 ug/dL 255-450 [facility] Iron saturation [Mass Fracti on] in Serum or PlasmaOrdered By: Buddy Jean on 09-21-2024 Iron saturation [Mass fraction] 17.4 % Low 20-50 [facility] Ketones Test strip Ql (U)Ord ered By: Buddy Jean on 09-21-2024 Ketones Ql (U) Ketones [Presence] i n Urine by Test strip Negative [facility] Ketones [Presence] in Urine by Test stripOrdered By: Buddy Jean on 09-21-2024 Ketones Ql (U) Negative Normal Negative [facility] Comment on above: Order Comment: Reaso n for Exam Chronic kidney disease, stage III (moderate);Type 1 diabetes Name Collection Type:: Clean-Voided Midstream Performed By: #### A YUVAL CUU #### [facility] [address] [place] [address] Laboratory - Microbiology an d Antimicrobial susceptibilityOrdered By: Buddy Jean on 09-21-2024 Bacteria identified Cx Nom (U) No Growth 2 Days [facility] Leukocyte esterase [Presence ] in Urine by Test stripOrdered By: Buddy Jean on 09-21-2024 Leukocyte esterase Test strip Ql (U) 3+ High Negative [facility] Comment on above: Order Comment: Reaso n for Exam Chronic kidney disease, stage III (moderate);Type 1 diabetes Name Collection Type:: Clean-Voided Midstream Performed By: #### A YUVAL, CUU #### [facility] [address] [place] [address] Leukocyte esterase Test strip Ql (U) Leukocyte esterase [Presence] in Urine by Test strip High Negative [facility] Leukocytes [#/area] in Urine sediment by Automated countOrdered By: Buddy Jean on 09-21-2024 WBC Auto (Urine sed) [#/Area] 5-9 [HPF] High 0-4 [facility] WBC Auto (Urine sed) [#/Area] Leukocytes [#/area] in Urine sediment by Automated count High 0-4 [facility] Leukocytes [#/volume] correc man for nucleated erythrocytes in Blood by Automated counOrdered By: Buddy Jean on 09-21-2024 WBC corrected for nucl RBC Auto (Bld) [#/Vol] 4.2 10*3/uL 3.8-11.6 [facility] WBC corrected for nucl RBC Auto (Bld) [#/Vol] Leukocytes [#/volume] corrected for nucleated erythrocytes in Blood by Automated coun 3.8-11.6 [facility] MCH Auto (RBC) [Entitic mass ]Ordered By: Buddy Jean on 09-21-2024 MCH (RBC) [Entitic mass] MCH [Entitic ma ss] by Automated count 24.7-34.3 [facility] MCH [Entitic mass] by Automa man countOrdered By: Buddy Jean on 09-21-2024 MCH (RBC) [Entitic mass] 32.7 pg Normal 24.7-34.3 [facility] Comment on above: Order Comment: Reaso n for Exam Chronic kidney disease, stage III (moderate);Type 1 diabetes Performed By: #### C BCNO #### [facility] [address] [place] [address] MCHC Auto (RBC) [Mass/Vol]Or dered By: Buddy Jean on 09-21-2024 MCHC (RBC) [Mass/Vol] 33.4 g/dL 32.0-35.0 [facility] MCHC (RBC) [Mass/Vol] MCHC [Mass/volume] by Automated count 32.0-35.0 [facility] MCV Auto (RBC) [Entitic vol] Ordered By: Buddy Jean on 09-21-2024 MCV (RBC) [Entitic vol] MCV [Entitic vol ume] by Automated count 80-100 [facility] MCV [Entitic volume] by Auto mated countOrdered By: Buddy Jean on 09-21-2024 MCV (RBC) [Entitic vol] 97.9 fL Normal 80-100 [facility] Comment on above: Order Comment: Reaso n for Exam Chronic kidney disease, stage III (moderate);Type 1 diabetes Performed By: #### C BCNO #### [facility] [address] [place] [id number] [facility] Magnesium [Mass/volume] in S violetta or PlasmaOrdered By: Buddy Jean on 09-21-2024 Magnesium [Mass/Vol] 2.0 mg/dL Normal 1.9-2.7 [facility] Comment on above: Order Comment: Reaso n for Exam Chronic kidney disease, stage III (moderate);Type 1 diabetes Name Collection Type:: Clean-Voided Midstream Performed By: #### A DDONUAPLUS, CUU #### [facility] [address] [place] [id number] [facility] Magnesium [Mass/Vol] Magnesium [Mass/volume] in Serum or Plasma 1.9-2.7 [facility] Mucus [Presence] in Urine by AutomatedOrdered By: Buddy Jean on 09-21-2024 Mucus Auto Ql (U) Rare [LPF] [facility] Mucus Auto Ql (U) Mucus [Presence] in Urine by Automated [facility] Nitrite Test strip Ql (U)Ord ered By: Buddy Jean on 09-21-2024 Nitrite Ql (U) Negative Negative [facility] Nitrite Ql (U) Nitrite [Presence] i n Urine by Test strip Negative [facility] No Panel InformationOrdered By: Buddy Jean on 09-21-2024 Estimated GFR (CKD-EPI) 58.336 mL/Min [facility] Creatinine Clearance (Chem N/A [facility] Parathyrin.intact [Mass/volu me] in Serum or PlasmaOrdered By: Buddy Jean on 09-21-2024 Parathyrin.intact [Mass/Vol] 33.0 pg/mL [facility] Parathyrin.intact [Mass/Vol] Parathyrin.intact [Mass/volume] in Serum or Plasma [facility] Parathyroid Hormone Intacton 09-21-2024 Parathyroid Hormone Intact 33.0 pg/mL Normal [facility] Comment on above: Order Comment: Reaso n for Exam Chronic kidney disease, stage III (moderate);Type 1 diabetes Result Comment: PERF ORMED BY: [address] [id number] PATHOLOGIST [employer] SUPERVISOR VELASQUEZ CARLOS M.D. Performed By: #### P TH #### [facility] [address] [place] [address] [place] Phosphate [Mass/volume] in S violetta or PlasmaOrdered By: Buddy Griffithsr on 09-21-2024 Phosphate [Mass/Vol] 4.1 mg/dL Normal 2.5-4.5 [facility] Comment on above: Order Comment: Reaso n for Exam Chronic kidney disease, stage III (moderate);Type 1 diabetes Performed By: #### M G, URIC, [id number], ZEINAB, FE and TIBC, RENAL #### [facility] [address] [place] [address] [place] Phosphate [Mass/Vol] Phosphate [Mass/volume] in Serum or Plasma 2.5-4.5 [facility] Platelet mean volume Auto (B ld) [Entitic vol]Ordered By: Buddy Jean on 09-21-2024 Platelet mean volume (Bld) [Entitic vol] Platelet mean volume [Entitic volume] in Blood by Automated count 6.3-10.7 [facility] Platelet mean volume [Entiti c volume] in Blood by Automated countOrdered By: Buddy Jean on 09-21-2024 Platelet mean volume (Bld) [Entitic vol] 10.2 fL Normal 6.3-10.7 [facility] Comment on above: Order Comment: Reaso n for Exam Chronic kidney disease, stage III (moderate);Type 1 diabetes Result Comment: PERF ORMED BY: [address] [address] PATHOLOGIST [employer] SUPERVISOR VELASQUEZ CARLOS M.D. Performed By: #### C BCNO #### [facility] [address] [place] [address] [place] Platelets Auto (Bld) [#/Vol] Ordered By: Buddy Jean on 09-21-2024 Platelets (Bld) [#/Vol] Platelets [#/vol ume] in Blood by Automated count 150-450 [facility] Platelets [#/volume] in Bloo d by Automated countOrdered By: Buddy Miranda on 09-21-2024 Platelets (Bld) [#/Vol] 289 10*3/uL Normal 150-450 [facility] Comment on above: Order Comment: Reaso n for Exam Chronic kidney disease, stage III (moderate);Type 1 diabetes Performed By: #### C BCNO #### [facility] [address] [place] [address] Potassium [Moles/volume] in Serum or PlasmaOrdered By: Budyd Jean on 09-21-2024 Potassium [Moles/Vol] 4.9 mmol/L Normal 3.5-5.1 [facility] Comment on above: Order Comment: Reaso n for Exam Chronic kidney disease, stage III (moderate);Type 1 diabetes Performed By: #### M G, URIC, [id number], ZEINAB, FE and TIBC, RENAL #### [facility] [address] [place] [address] Potassium [Moles/Vol] Potassium [Moles/volume] in Serum or Plasma 3.5-5.1 [facility] Protein Creat Ratio Ur Rando mon 09-21-2024 Creatinine, Urine (Random) 180.00 mg/dL Normal [facility] Comment on above: Order Comment: Reaso n for Exam Chronic kidney disease, stage III (moderate);Type 1 diabetes Name Collection Type:: Clean-Voided Midstream Result Comment: No r eference range established Performed By: #### A DDONUAPLUS, CUU #### [facility] [address] [place] [address] Urine Protein/Creatinine Ratio 56 mg/g{Cre} Normal 0-200 [facility] Comment on above: Order Comment: Reaso n for Exam Chronic kidney disease, stage III (moderate);Type 1 diabetes Name Collection Type:: Clean-Voided Midstream Result Comment: PERF ORMED BY: [place] [address] PATHOLOGIST [employer] SUPERVISOR VELASQUEZ CARLOS M.D. Performed By: #### A YUVAL, CUU #### [place] [address] [place] Protein Test strip (U) [Mass /Vol]Ordered By: Buddy Jean on 09-21-2024 Protein (U) [Mass/Vol] Negative Negative [facility] Protein (U) [Mass/Vol] Protein [Mass/vol ume] in Urine by Test strip Negative [facility] Protein [Mass/volume] in Uri neOrdered By: Buddy Jean on 09-21-2024 Protein (U) [Mass/Vol] 10 mg/dL High 0-9 [facility] Comment on above: Order Comment: Reaso n for Exam Chronic kidney disease, stage III (moderate);Type 1 diabetes Name Collection Type:: Clean-Voided Midstream Performed By: #### A YUVAL, CUU #### [place] [id number] [place] Protein (U) [Mass/Vol] Protein [Mass/vol ume] in Urine High 0-9 [facility] RBC Auto (Bld) [#/Vol]Ordere d By: Buddy Jean on 09-21-2024 RBC (Bld) [#/Vol] Erythrocytes [#/volume] in Blood by Automated count 3.60-5.00 [facility] Renal Function Panelon 09-21 Albumin [Mass/Vol] 3.8 g/dL Normal 3.5-5.7 [facility] Comment on above: Order Comment: Reaso n for Exam Chronic kidney disease, stage III (moderate);Type 1 diabetes Performed By: #### M G, URIC, [id number], ZEINAB, FE and TIBC, RENAL #### [place] [id number] [place] GFR/1.73 sq M.predicted MDRD (S/P/Bld) [Vol rate/Area] 58.336 mL/min/{1.73_m2} Normal [facility] Comment on above: Order Comment: Reaso n for Exam Chronic kidney disease, stage III (moderate);Type 1 diabetes Performed By: #### M G, URIC, [id number], ZEINAB, FE and TIBC, RENAL #### [facility] [address] Serum or plasma anion gap de terminationOrdered By: Buddy Griffithsr on 09-21-2024 Anion gap [Moles/Vol] 8.9 mmol/L Normal 6.0-15.0 [facility] Comment on above: Order Comment: Reaso n for Exam Chronic kidney disease, stage III (moderate);Type 1 diabetes Performed By: #### M G, URIC, [id number], ZEINAB, FE and TIBC, RENAL #### [facility] [address] Anion gap [Moles/Vol] Serum or plasma an ion gap determination 6.0-15.0 [facility] Serum or plasma iron binding capacity measurement (mass/volume)Ordered By: Buddy Jean on 09-21-2024 Iron binding capacity [Mass/Vol] Iron binding capacity [Mass/volume] in Serum or Plasma 255-450 [facility] Serum or plasma iron saturat ion measurement (mass fraction)Ordered By: Buddy Griffithsr on 09-21-2024 Iron saturation [Mass fraction] Iron saturation [Mass Fraction] in Serum or Plasma Low 20-50 [facility] Sodium [Moles/volume] in Ser um or PlasmaOrdered By: Buddy Jean on 09-21-2024 Sodium [Moles/Vol] 141 mmol/L Normal 136-145 [facility] Comment on above: Order Comment: Reaso n for Exam Chronic kidney disease, stage III (moderate);Type 1 diabetes Performed By: #### M G, URIC, [id number], ZEINAB, FE and TIBC, RENAL #### [facility] [address] [place] [id number] [facility] Sodium [Moles/Vol] Sodium [Moles/volume ] in Serum or Plasma 136-145 [facility] Specific gravity Test strip (U) [Rel density]Ordered By: Buddy Jean on 09-21-2024 Specific gravity (U) [Rel density] 1.018 1.001-1.030 [facility] Specific gravity (U) [Rel density] Specific gravity of Urine by Test strip 1.001-1.030 [facility] Transferrin [Mass/volume] in Serum or PlasmaOrdered By: Buddy Jean on 09-21-2024 Transferrin [Mass/Vol] 205 mg/dL Normal 203-362 [facility] Comment on above: Order Comment: Reaso n for Exam Chronic kidney disease, stage III (moderate);Type 1 diabetes Name Collection Type:: Clean-Voided Midstream Performed By: #### A YUVAL, CUU #### [facility] [address] [place] [address] [place] Transferrin [Mass/Vol] Transferrin [Mass/volume] in Serum or Plasma 203-362 [facility] Urate [Mass/volume] in Serum or PlasmaOrdered By: Buddy Jean on 09-21-2024 Urate [Mass/Vol] 6.0 mg/dL Normal 2.3-6.6 [facility] Comment on above: Order Comment: Reaso n for Exam Chronic kidney disease, stage III (moderate);Type 1 diabetes Name Collection Type:: Clean-Voided Midstream Performed By: #### A DDONUAPLUS, CUU #### [facility] [address] [place] [address] [place] Urate [Mass/Vol] Urate [Mass/volume] in Serum or Plasma 2.3-6.6 [facility] Urea nitrogen [Mass/volume] in Serum or PlasmaOrdered By: Buddy Jean on 09-21-2024 Urea nitrogen [Mass/Vol] 27 mg/dL High -25 [facility] Comment on above: Order Comment: Reaso n for Exam Chronic kidney disease, stage III (moderate);Type 1 diabetes Performed By: #### M G, URIC, [id number], ZEINAB, FE and TIBC, RENAL #### [facility] [address] [place] [address] [place] Urea nitrogen [Mass/Vol] Urea nitrogen [Mass/volume] in Serum or Plasma High 7-25 [facility] Urine Cultureon 09-21-2024 Bacteria identified Cx Nom (U) No Growth 2 Days PERFORMED BY: [place] [address] PATHOLOGIST HEARING [employer] ASSEMBLY SUPERVISOR VELASQUEZ CARLOS M.D. Normal [facility] Comment on above: Performed By: #### A DDONUAPLUS, CUU #### [facility] [address] [place] [address] Urine appearanceOrdered By: Buddy Miranda on 09-21-2024 Appearance (U) Clear Normal Clear [facility] Comment on above: Order Comment: Reaso n for Exam Chronic kidney disease, stage III (moderate);Type 1 diabetes Name Collection Type:: Clean-Voided Midstream Performed By: #### A DDONUAPLUS, CUU #### [facility] [address] [place] [address] Urine cultureOrdered By: Abd ul Miranda on 09-21-2024 Bacteria identified Cx Nom (U) Urine culture [facility] Urine protein/creatinine rat ioOrdered By: Buddy Miranda on 09-21-2024 Protein/Creatinine (U) [Ratio] 56 mg/g{Cre} 0-200 [facility] Protein/Creatinine (U) [Ratio] Urine protein/creatinine ratio 0-200 [facility] Urobilinogen Test strip (U) [Mass/Vol]Ordered By: Buddy Miranda on 09-21-2024 Urobilinogen (U) [Mass/Vol] Normal mg/dL Normal [facility] Urobilinogen (U) [Mass/Vol] Urobilinogen [Mass/volume] in Urine by Test strip Normal [facility] Vitamin D 25 Hydroxy Totalon 09-21-2024 Vitamin D 25 Hydroxy Total 58.0 ng/mL Normal 30-100 [facility] Comment on above: Order Comment: Reaso n for Exam Chronic kidney disease, stage III (moderate);Type 1 diabetes Name Collection Type:: Clean-Voided Midstream Result Comment: TOMAS MIN D STATUS 25(OH)VITAMIN D RANGE (ng/mL) Deficient <20 Insufficient 20 to <30 Sufficient 30 to 100 Reference: Obed Gil, Jaimie BAKER, et al. Evaluation,treatment, and prevention of vitamin D deficiency; an Endocrine Society clinical practice guideline. JCEM. 2010; 96(7):191-. PERFORMED BY: [facility] [address] [place] [address] PATHOLOGIST HEARING AID ASSEMBLY SUPERVISOR VELASQUEZ CARLOS M.D. Performed By: #### A JYOTSNA BARAKAT #### [address] Vitamin D+Metabolites [Mass/ volume] in Serum or PlasmaOrdered By: Buddy Jean on 09-21-2024 Vitamin D+Metabolites [Mass/Vol] 58.0 ng/mL 30-100 [facility] Comment on above: VITAMIN D STATUS 25( [place])VITAMIN D RANGE (ng/mL) Deficient <20 Insufficient 20 to <30Sufficient 30 to 100Reference: Obed Gil, Jaimie BAKER, et al. Evaluation,treatment, and prevention of vitamin D deficiency; an Endocrine Society clinical practice guideline. JCEM. 2010; 96(7):1911-. Vitamin D+Metabolites [Mass/Vol] Vitamin D+Metabolites [Mass/volume] in Serum or Plasma 30-100 [facility] Comment on above: VITAMIN D STATUS 25( [place])VITAMIN D RANGE (ng/mL) Deficient <20 Insufficient 20 to <30Sufficient 30 to 100Reference: Obed Gil, Jaimie BAKER, et al. Evaluation,treatment, and prevention of vitamin D deficiency; an Endocrine Society clinical practice guideline. JCEM. 2010; 96(7):1911-. pH Test strip (U)Ordered By: Buddy Jean on 09-21-2024 pH (U) pH of Urine by Test strip 5.0-9.0 [facility] pH of Urine by Test stripOrd ered By: Buddy Jean on 09-21-2024 pH (U) 5.5 [pH] Normal 5.0-9.0 [facility] Comment on above: Order Comment: Reaso n for Exam Chronic kidney disease, stage III (moderate);Type 1 diabetes Name Collection Type:: Clean-Voided Midstream Performed By: #### A DDCAROLINE GUERREROU #### [address] No Panel Informationon 09-10 [facility] Alanine aminotransferase [En zymatic activity/volume] in Serum or PlasmaOrdered By: Rodger Avila on 05-14-2024 ALT [Catalytic activity/Vol] 18 U/L Normal 7-52 [facility] Comment on above: Order Comment: Comme nt fasting Performed By: #### U RMACRERAT, CMP, LIPID, TSH3 wRFLX #### [facility] [address] [place] [address] #### CPEP #### [facility] , Albumin [Mass/volume] in Ser um or Plasma by Bromocresol green (BCG) dye binding methoOrdered By: Rodger Avila on 05-14-2024 Albumin BCG dye [Mass/Vol] 4.0 g/dL 3.5-5.7 [facility] Alkaline phosphatase [Enzyma tic activity/volume] in Serum or PlasmaOrdered By: Rodger Avila on 05-14-2024 ALP [Catalytic activity/Vol] 79 U/L Normal 34-104 [facility] Comment on above: Order Comment: Comme nt fasting Performed By: #### U RMACRERAT, CMP, LIPID, TSH3 wRFLX #### [facility] [address] [place] [address] [place] #### CPEP #### [facility] , Aspartate aminotransferase [ Enzymatic activity/volume] in Serum or PlasmaOrdered By: Rodger Avila on 05-14-2024 AST [Catalytic activity/Vol] 23 U/L Normal 13-39 [facility] Comment on above: Order Comment: Comme nt fasting Performed By: #### U RMACRERAT, CMP, LIPID, TSH3 wRFLX #### [facility] [address] [place] [address] [place] #### CPEP #### [facility] , Bilirubin.total [Mass/volume ] in Serum or PlasmaOrdered By: Tondra Mapus on 05-14-2024 Bilirubin [Mass/Vol] 0.4 mg/dL Normal 0.3-1.0 [facility] Comment on above: Order Comment: Comme nt fasting Performed By: #### U RMACRERAT, CMP, LIPID, TSH3 wRFLX #### [address] #### CPEP #### [facility] , C-Peptideon 05-14-2024 C-Peptide <0.1 Low 1.1-4.4 [facility] Comment on above: Order Comment: Comme nt fasting Result Comment: C-Pe ptide reference interval is for fasting patients. Performed at: [address] [id number] [employer] Developer: Wenceslao Hoyos PhD, Phone: [phone] PERFORMED BY: [place] [address] PATHOLOGIST HEARING A[employer] ASSEMBLY SUPERVISOR VELASQUEZ CARLOS M.D. Performed By: #### U RMACRERAT, CMP, LIPID, TSH3 wRFLX #### [address] #### CPEP #### [facility] , Calcium [Mass/volume] in Ser um or PlasmaOrdered By: Tondra Mapus on 05-14-2024 Calcium [Mass/Vol] 9.9 mg/dL Normal 8.6-10.3 [facility] Comment on above: Order Comment: Comme nt fasting Performed By: #### U RMACRERAT, CMP, LIPID, TSH3 wRFLX #### [address] #### CPEP #### [facility] , Carbon dioxide, total [Moles /volume] in Serum or PlasmaOrdered By: Tondra Mapus on 05-14-2024 CO2 [Moles/Vol] 30.5 mmol/L Normal 21.0-31.0 [facility] Comment on above: Order Comment: Comme nt fasting Performed By: #### U RMACRERAT, CMP, LIPID, TSH3 wRFLX #### [facility] [address] [place] [address] #### CPEP #### [facility] , Chloride [Moles/volume] in S violetta or PlasmaOrdered By: Rodger Avila on 05-14-2024 Chloride [Moles/Vol] 106 mmol/L Normal 98-107 [facility] Comment on above: Order Comment: Comme nt fasting Performed By: #### U RMACRERAT, CMP, LIPID, TSH3 wRFLX #### [facility] [address] [place] [address] #### CPEP #### [facility] , Cholesterol [Mass/volume] in Serum or PlasmaOrdered By: Rodger Avila on 05-14-2024 Cholesterol [Mass/Vol] 157 mg/dL Normal 140-200 [facility] Comment on above: Chol less than 200 m g/dl low riskChol 201-239 mg/dl borderline riskChol 240 mg/dl and greater high risk Order Comment: Comme nt fasting Result Comment: Chol less than 200 mg/dl low risk Chol 201-239 mg/dl borderline risk Chol 240 mg/dl and greater high risk Performed By: #### U RMACRERAT, CMP, LIPID, TSH3 wRFLX #### [facility] [address] [place] [address] [place] #### CPEP #### [facility] , Cholesterol in LDL Calc [Mas s/Vol]Ordered By: Rodger Avila on 05-14-2024 Cholesterol in LDL [Mass/Vol] 76 mg/dL 0-100 [facility] Comment on above: LDL ATP III CLASSIFI CATIONLDL less than 100 mg/dL OptimalLDL 100-129 mg/dL Near or above optimalLDL 130-159 mg/dL Borderline highLDL 160-189 mg/dL HighLDL greater than 189 mg/dL Very high Cholesterol in VLDL Calc [Ma ss/Vol]Ordered By: Rodger Avila on 05-14-2024 Cholesterol in VLDL [Mass/Vol] 22 mg/dL [facility] Comprehensive Metabolic Pane bill 05-14-2024 Albumin [Mass/Vol] 4.0 g/dL Normal 3.5-5.7 [facility] Comment on above: Order Comment: Comme nt fasting Performed By: #### U RMACRERAT, CMP, LIPID, TSH3 wRFLX #### [facility] [address] [place] [address] [place] #### CPEP #### [facility] , GFR/1.73 sq M.predicted MDRD (S/P/Bld) [Vol rate/Area] 56.259 mL/min/{1.73_m2} Normal [facility] Comment on above: Order Comment: Comme nt fasting Performed By: #### U RMACRERAT, CMP, LIPID, TSH3 wRFLX #### [facility] [address] [place] [address] [place] #### CPEP #### [facility] , Creatinine [Mass/volume] in Serum or PlasmaOrdered By: Rodger Avila on 05-14-2024 Creatinine [Mass/Vol] 1.15 mg/dL Normal 0.60-1.20 [facility] Comment on above: Order Comment: Comme nt fasting Performed By: #### U RMACRERAT, CMP, LIPID, TSH3 wRFLX #### [facility] [address] [place] [address] [place] #### CPEP #### [facility] , Creatinine [Mass/volume] in UrineOrdered By: Rodger Avila on 05-14-2024 Creatinine (U) [Mass/Vol] 276.00 mg/dL [facility] Comment on above: No reference range e stablished Glucose [Mass/volume] in Ser um or PlasmaOrdered By: Rodger Avila on 05-14-2024 Glucose [Mass/Vol] 140 mg/dL High 70-100 [facility] Comment on above: ADA recommended refe rence rangeRandom Glucose Reference Range is dependent on time and content of last meal. Glucose of more than 200 mg/dL in a nonstressed, ambulatory subject supports the diagnosis of Diabetes Mellitus. Order Comment: Comme nt fasting Result Comment: [place] om Glucose Reference Range is dependent on time and content of last meal. Glucose of more than 200 mg/dL in a nonstressed, ambulatory subject supports the diagnosis of Diabetes Mellitus. ADA recommended reference range Performed By: #### U RMACRERAT, CMP, LIPID, TSH3 wRFLX #### [facility] [address] [place] [address] #### CPEP #### [facility] , Lipid Panelon 05-14-2024 LDL Cholesterol,Calculated 76 mg/dL Normal 0-100 [facility] Comment on above: Order Comment: Comme nt fasting Result Comment: LDL ATP III CLASSIFICATION LDL less than 100 mg/dL Optimal LDL 100-129 mg/dL Near or above optimal LDL 130-159 mg/dL Borderline high LDL 160-189 mg/dL High LDL greater than 189 mg/dL Very high Performed By: #### U RMACRERAT, CMP, LIPID, TSH3 wRFLX #### [facility] [address] [place] [address] [place] #### CPEP #### [facility] , Triglyceride w/Reflex 110 mg/dL Normal 0-149 [facility] Comment on above: Order Comment: Comme nt fasting Result Comment: TRIG ATP III CLASSIFICATION TRIG less than 150 mg/dL Normal TRIG 150-199 mg/dL Borderline high TRIG 200-500 mg/dL High TRIG greater than 500 mg/dL Very high Standard traceable to the Center for Disease Conrtrol and Prevention (CDC) test method. Performed By: #### U RMACRERAT, CMP, LIPID, TSH3 wRFLX #### [facility] [address] [place] [address] [place] #### CPEP #### [facility] , VLDL CHOLESTEROL 22 mg/dL Normal [facility] Comment on above: Order Comment: Comme nt fasting Performed By: #### U RMACRERAT, CMP, LIPID, TSH3 wRFLX #### [facility] [address] [place] [address] #### CPEP #### [facility] , MicroAlb Creat Ratio,Uon Creatinine, Urine (Random) 276.00 mg/dL Normal [facility] Comment on above: Result Comment: No r eference range established Performed By: #### U RMACRERAT, CMP, LIPID, TSH3 wRFLX #### [address] #### CPEP #### [facility] , Microalbumin/Creatinine Ratio 49.3 mg/g High 0.0-30.0 [facility] Comment on above: Result Comment: 30-3 00 mg/g indicates an increased risk for diabetic nephropathy. Greater than 300 mg/g is consistent with clinical nephropathy. (Am. J. Kidney Disease 1995, 25:107) PERFORMED BY: [place] [address] PATHOLOGIST HEARING AID ASSEMBLY SUPERVISOR VELASQUEZ CARLOS M.D. Performed By: #### U RMACRERAT, CMP, LIPID, TSH3 wRFLX #### [address] #### CPEP #### [facility] , Microalbumin [Mass/volume] i n UrineOrdered By: Tondra Mapus on 05-14-2024 Albumin DL <= 20 mg/L (U) [Mass/Vol] 13.6 mg/dL High 0.0-1.8 [facility] Comment on above: Performed By: #### U RMACRERAT, CMP, LIPID, TSH3 wRFLX #### [address] #### CPEP #### [facility] , No Panel InformationOrdered By: Tondra Mapus on 05-14-2024 C-Peptide <0.1 ng/mL Low 1.1-4.4 [facility] Comment on above: C-Peptide reference interval is for fasting patients.Performed at: - [facility] [id number] Director: Wenceslao Hoyos PhD, Phone: [phone] Estimated GFR (CKD-EPI) 56.259 mL/Min [facility] Creatinine Clearance (Chem N/A [facility] Potassium [Moles/volume] in Serum or PlasmaOrdered By: Tondra Austin on 05-14-2024 Potassium [Moles/Vol] 5.1 mmol/L Normal 3.5-5.1 [facility] Comment on above: Order Comment: Comme nt fasting Performed By: #### U RMACRERAT, CMP, LIPID, TSH3 wRFLX #### [facility] [address] [place] [address] #### CPEP #### [facility] , Protein [Mass/volume] in Ser um or PlasmaOrdered By: Tondra Austin on 05-14-2024 Protein [Mass/Vol] 6.8 g/dL Normal 6.4-8.9 [facility] Comment on above: Order Comment: Comme nt fasting Performed By: #### U RMACRERAT, CMP, LIPID, TSH3 wRFLX #### [facility] [address] [place] [address] #### CPEP #### [facility] , Serum globulin measurement b y calculation (mass/volume)Ordered By: Tondra Austin on 05-14-2024 Globulin (S) [Mass/Vol] 2.8 g/dL Normal [facility] Comment on above: Order Comment: Comme nt fasting Performed By: #### U RMACRERAT, CMP, LIPID, TSH3 wRFLX #### [facility] [address] [place] [address] [place] #### CPEP #### [facility] , Serum or plasma albumin/glob ulin mass ratioOrdered By: Tondra Domius on 05-14-2024 Albumin/Globulin [Mass ratio] 1.4 {ratio} Normal [facility] Comment on above: Order Comment: Comme nt fasting Performed By: #### U RMACRERAT, CMP, LIPID, TSH3 wRFLX #### [facility] [address] [place] [address] [place] #### CPEP #### [facility] , Serum or plasma anion gap de terminationOrdered By: Rodger Avila on 05-14-2024 Anion gap [Moles/Vol] 9.6 mmol/L Normal 6.0-15.0 [facility] Comment on above: Order Comment: Comme nt fasting Performed By: #### U RMACRERAT, CMP, LIPID, TSH3 wRFLX #### [facility] [address] #### CPEP #### [facility] , Serum or plasma high density lipoprotein (HDL) cholesterol measurementOrdered By: Rodger Avila on 05-14-2024 Cholesterol in HDL [Mass/Vol] 59 mg/dL Normal 23-92 [facility] Comment on above: HDL CHOL ATP-III CLA SSIFICATION Cardiovascular RiskHDL > or equal to 60 mg/dL LOWHDL < 40 mg/dL HIGH Order Comment: Comme nt fasting Result Comment: HDL CHOL ATP-III CLASSIFICATION Cardiovascular Risk HDL > or equal to 60 mg/dL LOW HDL < 40 mg/dL HIGH Performed By: #### U RMACRERAT, CMP, LIPID, TSH3 wRFLX #### [facility] [address] [place] [address] [place] #### CPEP #### [facility] , Serum or plasma total choles terol/high density lipoprotein (HDL) cholesterol mass ratOrdered By: Rodger Avila on 05-14-2024 Cholesterol.total/Choles terol in HDL [Mass ratio] 2.7 {ratio} Normal <5.0 [facility] Comment on above: Order Comment: Comme nt fasting Performed By: #### U RMACRERAT, CMP, LIPID, TSH3 wRFLX #### [facility] [address] [place] [address] [place] #### CPEP #### [facility] , Sodium [Moles/volume] in Ser um or PlasmaOrdered By: Tondra Mapus on 05-14-2024 Sodium [Moles/Vol] 141 mmol/L Normal 136-145 [facility] Comment on above: Order Comment: Comme nt fasting Performed By: #### U RMACRERAT, CMP, LIPID, TSH3 wRFLX #### [facility] [address] [place] [address] #### CPEP #### [facility] , Thyroid Stim Hormone w/Rflxo n 05-14-2024 Thyroid Stim Hormone w/Rflx 1.89 u[iU]/mL Normal 0.45-5.33 [facility] Comment on above: Order Comment: Comme nt fasting Result Comment: PERF ORMED BY: [address] [place] [address] PATHOLOGIST HEARING A[employer] ASSEMBLY SUPERVISOR VELASQUEZ CARLOS M.D. Performed By: #### U RMACRERAT, CMP, LIPID, TSH3 wRFLX #### [address] #### CPEP #### [facility] , Thyrotropin [Units/volume] i n Serum or PlasmaOrdered By: Tondra Mapus on 05-14-2024 TSH Qn 1.89 m[IU]/L 0.45-5.33 [facility] Triglyceride [Mass/volume] i n Serum or PlasmaOrdered By: Tondra Mapus on 05-14-2024 Triglyceride [Mass/Vol] 110 mg/dL 0-149 [facility] Comment on above: TRIG ATP III CLASSIF ICATIONTRIG less than 150 mg/dL NormalTRIG 150-199 mg/dL Borderline highTRIG 200-500 mg/dL High TRIG greater than 500 mg/dL Very highStandard traceable to the Center for Disease Conrtrol and Prevention (CDC) test method. Urea nitrogen [Mass/volume] in Serum or PlasmaOrdered By: Rodger Avila on 05-14-2024 Urea nitrogen [Mass/Vol] 29 mg/dL High 7-25 [facility] Comment on above: Order Comment: Comme nt fasting Performed By: #### U RMACRERAT, CMP, LIPID, TSH3 wRFLX #### [facility] [address] #### CPEP #### [facility] , Urine microalbumin/creatinin e mass ratioOrdered By: Rodger Avila on 05-14-2024 Albumin/Creatinine DL <= 20 mg/L (U) [Mass ratio] 49.3 mg/g High 0.0-30.0 [facility] Comment on above: 30-300 mg/g indicate s an increased risk for diabetic nephropathy. Greater than 300 mg/g is consistent with clinical nephropathy. (Am. J. Kidney Disease 1995, 25:107) HbA1c HPLC (Bld) [Mass fract ion]on 04-30-2024 HbA1c (Bld) [Mass fraction] 6.5 % [facility] No Panel Informationon 04-30 Bedside Glucose 211 [facility] No Panel Informationon 02-08 OD Quality: RNFL: GCC: Status: prosthesis - no image OS Quality: fair RNFL: mild inferior, moderate superior GCC: difficult to interpret Status: stable MANUALLY TRANSCRIBED RESULTS [facility] COMPREHENSIVE METABOLIC PANE Bill 01-12-2024 Albumin [Mass/Vol] 3.9 g/dL Normal 3.2-5.3 [facility] Comment on above: Performed By: #### Frances PETE, 79006-1 #### [facility] ([id number]) [address], [address] [place] [address] ALP [Catalytic activity/Vol] 88 U/L Normal 39-130 [facility] Comment on above: Performed By: #### Frances PETE, 80005-7 #### [facility] ([id number]) [address], [address] [place] [address] ALT [Catalytic activity/Vol] 18 U/L Normal 0-31 [facility] Comment on above: Performed By: #### Frances PETE, 52751-7 #### [facility] ([id number]) [address], [address] [place] [address] Anion gap [Moles/Vol] 6 mmol/L Normal 5-[address] [facility] Comment on above: Performed By: #### Frances PETE, 69384-5 #### [facility] ([id number]) [address], [address] [place] [address] AST [Catalytic activity/Vol] 22 U/L Normal 0-41 [facility] Comment on above: Performed By: #### Frances PETE, 73768-2 #### [facility] ([id number]) [address], [address] [place] [address] Bilirubin [Mass/Vol] 0.5 mg/dL Normal 0.3-1.2 [facility] Comment on above: Performed By: #### Frances PETE, [id number] #### [facility] ([id number]) [address], [address] [place] [address] Calcium [Mass/Vol] 9.6 mg/dL Normal 8.5-10.5 [facility] Comment on above: Performed By: #### Frances PETE, [id number] #### [facility] ([id number]) [address], [address] [place] [address] Chloride [Moles/Vol] 102 mmol/L Normal 98-109 [facility] Comment on above: Performed By: #### Frances PETE, 76230-2 #### [facility] ([id number]) [address], [address] [place] [address] CO2 [Moles/Vol] 32 mmol/L Normal 22-32 [facility] Comment on above: Performed By: #### Frances PETE, [id number] #### [facility] ([id number]) [address], [address] [place] [address] Creatinine [Mass/Vol] 1.13 mg/dL High 0.40-1.[address] [facility] Comment on above: Result Comment: METH OD TRACEABLE TO IDMS STANDARD Performed By: #### Frances PETE, [id number] #### [facility] ([id number]) [address], [address] [place] [address] GFR/1.73 sq M.predicted among non-blacks MDRD (S/P/Bld) [Vol rate/Area] 57 mL/min/{1.73_m2} Low >59 [facility] Comment on above: Result Comment: Reported eGFR is based on the CKD-EPI 2020 equation that does not use a race coefficient. Performed By: #### Frances PETE [id number] #### [facility] ([id number]) [address], [address] [place] [address] Glucose [Mass/Vol] 144 mg/dL High 65-99 [facility] Comment on above: Performed By: #### Frances PETE [id number] #### [facility] ([id number]) [address] [address] [place] [address] Potassium [Moles/Vol] 4.7 mmol/L Normal 3.5-5.[address] [facility] Comment on above: Performed By: #### Frances PETE, [id number] #### [facility] ([id number]) [address] [address] [place] [address] Protein [Mass/Vol] 7.1 g/dL Normal 6.0-8.0 [facility] Comment on above: Performed By: #### Frances PETE, 83743-9 #### [facility] ([id number]) [address] [address] [place] [address] Sodium [Moles/Vol] 140 mmol/L Normal 134-146 [facility] Comment on above: Performed By: #### Maxine Daniels [id number] #### [facility] ([id number]) [address], [address] [place] [address] Urea nitrogen [Mass/Vol] 20 mg/dL Normal 5-23 [facility] Comment on above: Performed By: #### C JUAN R, [id number] #### [facility] ([id number]) [address], [address] [place] [address] Comprehensive metabolic pane bill 01-12-2024 Albumin [Mass/Vol] 3.9 g/dL 3.2 - 5.3 g/dL [facility] ALP [Catalytic activity/Vol] 88 U/L 39 - 130 U/L [facility] ALT No additional P-5'-P [Catalytic activity/Vol] 18 U/L 0 - 31 U/L [facility] Anion gap [Moles/Vol] 6 mmol/L 5 - 15 mmol/L [facility] AST [Catalytic activity/Vol] 22 U/L 0 - 41 U/L [facility] Bilirubin [Mass/Vol] 0.5 mg/dL 0.3 - 1 .2 mg/dL [facility] Calcium [Mass/Vol] 9.6 mg/dL 8.5 - 10. 5 mg/dL [facility] Chloride [Moles/Vol] 102 mmol/L 98 - 10 9 mmol/L [facility] CO2 [Moles/Vol] 32 mmol/L 22 - 32 mmol/L [facility] Creatinine [Mass/Vol] 1.13 mg/dL High 0.40 - 1.00 mg/dL [facility] Comment on above: METHOD TRACEABLE TO IDLA STANDARD eGFR (CKD-EPI)non-race dependent 57 Low - PINF [facility] Comment on above: Reported eGFR is based on the CKD-EPI 2020 equation that does not use a race coefficient. Glucose [Mass/Vol] 144 mg/dL High 65 - 99 mg/dL [facility] Interpretation and review of laboratory results Abnormal [facility] Potassium [Moles/Vol] 4.7 mmol/L 3.5 - 5.0 mmol/L [facility] Protein [Mass/Vol] 7.1 g/dL 6.0 - 8.0 g/dL [facility] Sodium [Moles/Vol] 140 mmol/L 134 - 146 mmol/L [facility] Urea nitrogen [Mass/Vol] 20 mg/dL 5 - 23 mg/d L [facility] HGB A1C (GLYCO-HGB)on 2023 Glucose [Mass/Vol] 180 mg/dL Normal [facility] Comment on above: Performed By: #### Frances PETE, [id number] #### [facility] ([id number]) [address] [place] [address] HbA1c (Bld) [Mass fraction] 7.9 % High 4.4-5.6 [facility] Comment on above: Result Comment: NOTE ADA Guidelines Result HgbA1c Normal : less than 5.7 % Prediabetes : 5.7 % to 6.4 % Diabetes : > 6.4 % Use with caution in patients with abnormal hemoglobin variants as the half-life of red blood cells and in vivo glycation rates are affected. Performed By: #### Frances PETE, 75031-4 #### [facility] ([id number]) [address] [place] [address], [facility] [address] [place] [address] Hemoglobin A1con 01-12-2024 Average glucose Estimated from glycated hemoglobin (Bld) [Mass/Vol] 180 mg/dL [facility] HbA1c (Bld) [Mass fraction] 7.9 % High 4.4 - 5.6 % [facility] Comment on above: NOTE ADA Guidelines Result HgbA1c Normal : less than 5.7 % Prediabetes : 5.7 % to 6.4 % Diabetes : > 6.4 % Use with caution in patients with abnormal hemoglobin variants as the half-life of red blood cells and in vivo glycation rates are affected. Interpretation and review of laboratory results Abnormal [facility] - Chemistry and C hemistry - challengeon 01-12-2024 Creatinine (U) [Mass/Vol] 45.94 mg/dL [facility] Cholesterol [Mass/Vol] 186 mg/[facility] Cholesterol in HDL [Mass/Vol] 76 mg/dL [facility] Cholesterol in LDL [Mass/Vol] 94 mg/dL [facility] Cholesterol.total/Choles terol in HDL [Mass ratio] 2.4 {ratio} [facility] Triglyceride [Mass/Vol] 80 mg/dL [facility] Albumin [Mass/Vol] 3.9 g/dL [facility] ALP [Catalytic activity/Vol] 88 U/L [facility] ALT [Catalytic activity/Vol] 18 U/L [facility] AST [Catalytic activity/Vol] 22 U/L [facility] Bilirubin [Mass/Vol] 0.5 mg/dL [facility] Calcium [Mass/Vol] 9.6 mg/dL [facility] Chloride [Moles/Vol] 102 mmol/L [facility] CO2 [Moles/Vol] 32 mmol/L [facility] Creatinine [Mass/Vol] 1.13 mg/dL [facility] GFR/1.73 sq M.predicted MDRD (S/P/Bld) [Vol rate/Area] 57 mL/min/{1.73_m2} [facility] Glucose [Mass/Vol] 144 mg/dL [facility] Potassium [Moles/Vol] 4.7 mmol/L [facility] Protein [Mass/Vol] 7.1 g/dL [facility] Sodium [Moles/Vol] 140 mmol/L [facility] Urea nitrogen [Mass/Vol] 20 mg/dL [facility] Laboratory - Hematology and Cell countson 01-12-2024 HbA1c (Bld) [Mass fraction] 7.9 % [facility] Lipid 1996 panelon 4 Cholesterol [Mass/Vol] 186 mg/dL 150 - 200 mg/dL [facility] Cholesterol in HDL [Mass/Vol] 76 mg/dL 39 - PINF mg/dL [facility] Comment on above: HDL <40 mg/dL - High Risk HDL > or = 40mg/dL- Desirable HDL >60 mg/dL - Negative Risk Cholesterol in LDL [Mass/Vol] 94 mg/dL NINF - 130 mg/dL [facility] Comment on above: LDL <100 mg/dL - Desirable LDL >160 mg/dL - High Risk Cholesterol in VLDL [Mass/Vol] 16 mg/dL 0 - 30 mg/dL [facility] Cholesterol.total/Choles terol in HDL [Mass ratio] 2.4 {ratio} 1.0 - 5.0 [facility] Triglyceride [Mass/Vol] 80 mg/dL 27 - 150 mg/dL [facility] Cholesterol [Mass/Vol] 186 mg/dL Normal 150-200 [facility] Comment on above: Performed By: #### Frances PETE, [id number] #### [facility] ([id number]) [facility] [facility] [place] [address] Cholesterol in HDL [Mass/Vol] 76 mg/dL Normal >39 [facility] Comment on above: Result Comment: HDL <40 mg/dL - High Risk HDL > or = 40mg/dL- Desirable HDL >60 mg/dL - Negative Risk Performed By: #### Frances PETE, 62090-1 #### [facility] ([id number]) [address] [facility] [place] [address] Cholesterol in LDL [Mass/Vol] 94 mg/dL Normal <130 [facility] Comment on above: Result Comment: LDL <100 mg/dL - Desirable LDL >160 mg/dL - High Risk Performed By: #### Frances PETE, [id number] #### [facility] ([id number]) [address] [address] [place] [address] Cholesterol in VLDL [Mass/Vol] 16 mg/dL Normal 0-30 [facility] Comment on above: Performed By: #### Frances PETE, 93267-9 #### [facility] ([id number]) [address] [address] [place] [address] CHOLESTEROL:HDL 2.4 Normal 1.0-5.0 [facility] Comment on above: Performed By: #### Frances PETE, 28047-3 #### [facility] ([id number]) [address] [address] [place] [address] Triglyceride [Mass/Vol] 80 mg/dL Normal 27-150 [facility] Comment on above: Performed By: #### Frances PETE, [id number] #### [facility] ([id number]) [address] [address] [place] [address] MICROALBUMIN - ALBUMIN:CREAT ININE URINE RATIOon 01-12-2024 ALB/CREAT RATIO 43.5 mg/g creat High 0.0-30.0 [facility] Comment on above: Performed By: #### M ALBU #### [facility] ([id number]) [address] [address] [place] [address] Albumin DL <= 20 mg/L (U) [Mass/Vol] 2.0 mg/dL High 0.0-1.9 [facility] Comment on above: Performed By: #### M ALBU #### [facility] ([id number]) [address] [address] [place] [address] URINE CREAT 45.94 mg/dL Normal [facility] Comment on above: Performed By: #### M ALBU #### [facility] ([id number]) [address] [place] [address] Microalbumin - Albumin: Crea tinine Urine Ratioon 01-12-2024 Albumin DL <= 20 mg/L (U) [Mass/Vol] 2.0 mg/dL High 0.0 - 1.9 mg/dL [facility] Albumin/Creatinine DL <= 1.0 mg/L (U) [Ratio] 43.5 High [facility] Creatinine (U) [Mass/Vol] 45.94 mg/dL [facility] Interpretation and review of laboratory results Abnormal [facility][note 3] System No Panel Informationon 01-12 [facility] Urine Microalbumin mg/dl 2.0 [facility] Urine Microalbumin/Creatinine Ratio 43.5 [facility] VLDL Cholesterol 16 mg/dL [facility] Estimated GFR (Non- 57 mL/min [facility] Albumin [Mass/volume] in Ser um or Plasma by Bromocresol green (BCG) dye binding methoOrdered By: Buddy Jean on 09-22-2023 Albumin BCG dye [Mass/Vol] 3.9 g/dL 3.5-5.7 [facility] Automated erythrocytes count in urine sediment (number/area)Ordered By: Buddy Jean on 09-22-2023 RBC Auto (Urine sed) [#/Area] None seen [HPF] 0-4 [facility] Automated leukocytes count i n urine sediment (number/area)Ordered By: Buddy Jean on 09-22-2023 WBC Auto (Urine sed) [#/Area] None seen [HPF] 0-4 [facility] Bilirubin Auto test strip Ql (U)Ordered By: Buddy Jean on 09-22-2023 Bilirubin Ql (U) Negative Negative [facility] Calcium [Mass/volume] in Ser um or PlasmaOrdered By: Buddy Jean on 09-22-2023 Calcium [Mass/Vol] 9.3 mg/dL 8.6-10.3 [facility] Carbon dioxide, total [Moles /volume] in Serum or PlasmaOrdered By: Buddy Jean on 09-22-2023 CO2 [Moles/Vol] 26.1 mmol/L 21.0-31.0 [facility] Chloride [Moles/volume] in S violetta or PlasmaOrdered By: Buddy Jean on 09-22-2023 Chloride [Moles/Vol] 105 mmol/L 98-107 [facility] Creatinine [Mass/volume] in Serum or PlasmaOrdered By: Buddy Jean on 09-22-2023 Creatinine [Mass/Vol] 1.39 mg/dL 0.60-1.20 [facility] Creatinine [Mass/volume] in UrineOrdered By: Buddy Jean on 09-22-2023 Creatinine (U) [Mass/Vol] 120.0 mg/dL 11.0-20.0 [facility] Erythrocyte distribution wid th Auto (RBC) [Ratio]Ordered By: Buddy Jean on 09-22-2023 Erythrocyte distribution width (RBC) [Ratio] 13.5 % 11.9-15.3 [facility] Ferritin [Mass/volume] in Se rum or PlasmaOrdered By: Buddy Jean on 09-22-2023 Ferritin [Mass/Vol] 28.4 ng/mL 11.0-306.8 [facility] Folate [Mass/volume] in Seru m or PlasmaOrdered By: Buddy Jean on 09-22-2023 Folate [Mass/Vol] 30.0 ng/mL >5.9 [facility] Comment on above: Folate reference ran ge: >5.9 ng/mlThe WHO technical consultation on folate and vitamin [id number] has determined that folate concentrations lessthan 4 ng/ml are considered deficient. Glucose [Mass/volume] in Ser um or PlasmaOrdered By: Buddy Jean on 09-22-2023 Glucose [Mass/Vol] 152 mg/dL 70-100 [facility] Comment on above: ADA recommended refe rence rangeRandom Glucose Reference Range is dependent on time and content of last meal. Glucose of more than 200 mg/dL in a nonstressed, ambulatory subject supports the diagnosis of Diabetes Mellitus. Hematocrit Auto (Bld) [Volum e fraction]Ordered By: Buddy Jean on 09-22-2023 Hematocrit (Bld) [Volume fraction] 35.9 % 34.0-46.4 [facility] Hemoglobin [Mass/volume] in BloodOrdered By: Buddy Jean on 09-22-2023 Hemoglobin (Bld) [Mass/Vol] 12.0 g/dL 11.8-15.4 [facility] Iron [Mass/volume] in Serum or PlasmaOrdered By: Buddy Jean on 09-22-2023 Iron [Mass/Vol] 83 ug/dL 50-212 [facility] Iron binding capacity [Mass/ volume] in Serum or PlasmaOrdered By: Buddy Jean on 09-22-2023 Iron binding capacity [Mass/Vol] 321 ug/dL 255-450 [facility] Iron saturation [Mass Fracti on] in Serum or PlasmaOrdered By: Buddy Jean on 09-22-2023 Iron saturation [Mass fraction] 25.9 % 20-50 [facility] Ketones Auto test strip (U) [Mass/Vol]Ordered By: Buddy Jean on 09-22-2023 Ketones (U) [Mass/Vol] Negative Negative Fi [facility] - UrinalysisOrder ed By: Buddy Jean on 09-22-2023 Hyaline casts LM Ql (Urine sed) 0-8 [LPF] 0-8 [facility] Leukocytes [#/volume] correc man for nucleated erythrocytes in Blood by Automated counOrdered By: Buddy Jean on 09-22-2023 WBC corrected for nucl RBC Auto (Bld) [#/Vol] 5.3 10*3/uL 3.8-11.6 [facility] MCH Auto (RBC) [Entitic mass ]Ordered By: Buddy Jean on 09-22-2023 MCH (RBC) [Entitic mass] 32.8 pg 24.7-34.3 [facility] MCHC Auto (RBC) [Mass/Vol]Or dered By: Buddy Jean on 09-22-2023 MCHC (RBC) [Mass/Vol] 33.4 g/dL 32.0-35.0 [facility] MCV Auto (RBC) [Entitic vol] Ordered By: Buddy Jean on 09-22-2023 MCV (RBC) [Entitic vol] 98.3 fL 80-100 [facility] Magnesium [Mass/volume] in S violetta or PlasmaOrdered By: Buddy Jean on 09-22-2023 Magnesium [Mass/Vol] 1.9 mg/dL 1.9-2.7 [facility] No Panel InformationOrdered By: Buddy Jean on 09-22-2023 Estimated GFR (CKD-EPI) 44.814 mL/Min [facility] Creatinine Clearance (Chem N/A [facility] Parathyrin.intact [Mass/volu me] in Serum or PlasmaOrdered By: Buddy Jean on 09-22-2023 Parathyrin.intact [Mass/Vol] 59.6 pg/mL 12-88 [facility] Phosphate [Mass/volume] in S violetta or PlasmaOrdered By: Buddy Jean on 09-22-2023 Phosphate [Mass/Vol] 4.0 mg/dL 3.7-7.2 [facility] Platelet mean volume Auto (B ld) [Entitic vol]Ordered By: Buddy Jean on 09-22-2023 Platelet mean volume (Bld) [Entitic vol] 9.9 fL 6.3-10.7 [facility] Platelets Auto (Bld) [#/Vol] Ordered By: Buddy Jean on 09-22-2023 Platelets (Bld) [#/Vol] 253 10*3/uL 150-450 [facility] Potassium [Moles/volume] in Serum or PlasmaOrdered By: Buddy Jean on 09-22-2023 Potassium [Moles/Vol] 4.6 mmol/L 3.5-5.1 [facility] Protein Auto test strip (U) [Mass/Vol]Ordered By: Buddy Jean on 09-22-2023 Protein (U) [Mass/Vol] Negative Negative Fi [facility] Protein [Mass/volume] in Uri neOrdered By: Buddy Jean on 09-22-2023 Protein (U) [Mass/Vol] 9 mg/dL 0-9 Fi [facility] RBC Auto (Bld) [#/Vol]Ordere d By: Buddy Jean on 09-22-2023 RBC (Bld) [#/Vol] 3.65 10*6/uL 3.60-5.00 [facility] Serum or plasma anion gap de terminationOrdered By: Buddy Jean on 09-22-2023 Anion gap [Moles/Vol] 13.5 mmol/L 6.0-15.0 [facility] Sodium [Moles/volume] in Ser um or PlasmaOrdered By: Buddy Jean on 09-22-2023 Sodium [Moles/Vol] 140 mmol/L 136-145 [facility] Squamous epithelial cells de tection in urine sediment by light microscopyOrdered By: Buddy Jean on 09-22-2023 Epithelial cells.squamous LM Ql (Urine sed) 3-4 [HPF] 0-2 [facility] Transferrin [Mass/volume] in Serum or PlasmaOrdered By: Buddy Jean on 09-22-2023 Transferrin [Mass/Vol] 229 mg/dL 203-362 [facility] Urate [Mass/volume] in Serum or PlasmaOrdered By: Buddy Jean on 09-22-2023 Urate [Mass/Vol] 6.8 mg/dL 2.3-6.6 [facility] Urea nitrogen [Mass/volume] in Serum or PlasmaOrdered By: Buddy Jean on 09-22-2023 Urea nitrogen [Mass/Vol] 34 mg/dL 7-25 [facility] Urine appearanceOrdered By: Buddy Jean on 09-22-2023 Appearance (U) Clear Clear [facility] Urine bacteria detection by automated methodOrdered By: Buddy Jean on 09-22-2023 Bacteria Auto Ql (U) None seen None Seen [facility] Urine colorOrdered By: Buddy Jean on 09-22-2023 Color (U) Yellow Yellow [facility] Urine glucose measurement by automated test strip (mass/volume)Ordered By: Buddy Jean on 09-22-2023 Glucose Auto test strip (U) [Mass/Vol] Normal mg/dL Normal [facility] Urine hemoglobin detection b y automated test stripOrdered By: Buddy Jean on 09-22-2023 Hemoglobin Auto test strip Ql (U) Negative Negative [facility] Urine leukocyte esterase det ection by automated test stripOrdered By: Buddy Jean on 09-22-2023 Leukocyte esterase Auto test strip Ql (U) Negative Negative [facility] Urine nitrite detection by a utomated test stripOrdered By: Buddy Jean on 09-22-2023 Nitrite Auto test strip Ql (U) Negative Negative [facility] Urine protein/creatinine rat ioOrdered By: Buddy Jean on 09-22-2023 Protein/Creatinine (U) [Ratio] 75 mg/g{Cre} 0-200 [facility] Urobilinogen Auto test strip (U) [Mass/Vol]Ordered By: Buddy Jean on 09-22-2023 Urobilinogen (U) [Mass/Vol] Normal mg/dL Normal [facility] Vitamin B12 ser/plasOrdered By: Buddy Jean on 09-22-2023 Cobalamin (Vitamin B12) [Mass/Vol] 799 pg/mL 180-914 [facility] Vitamin D+Metabolites [Mass/ volume] in Serum or PlasmaOrdered By: Buddy Jean on 09-22-2023 Vitamin D+Metabolites [Mass/Vol] 46.3 ng/mL 30-100 [facility] Comment on above: VITAMIN D STATUS 25( [place])VITAMIN D RANGE (ng/mL) Deficient <20 Insufficient 20 to <30Sufficient 30 to 100Reference: Lilly MF,Obed NC, Jaimie BAKER, et al. Evaluation,treatment, and prevention of vitamin D deficiency; an Endocrine Society clinical practice guideline. JCEM. 2010; 96(7):1911-30. pH Auto test strip (U)Ordere d By: Buddy Jean on 09-22-2023 pH (U) 1.020 [pH] 1.001-1.030 [facility] pH (U) 5.5 [pH] 5.0-9.0 [facility] XR LSPINE 2_3 VIEWSon 2022 XR LSPINE 2_3 VIEWS EXAM: XR LSPINE 2_3 VIEWS HISTORY: Spinal stenosis of lumbar region COMPARISON: None. TECHNIQUE: 2 views FINDINGS: Satisfactory alignment. Multilevel endplate degenerative changes, disc disease, anterior spurring and facet arthropathy. No acute fracture or subluxation. Scattered calcified atherosclerotic disease of aorta. IMPRESSION: No acute fracture or subluxation. Electronically authenticated by: JOSS SOARES Date: 2023-03-17 10:[address] [facility] Albumin [Mass/volume] in Ser um or PlasmaOrdered By: Buddy Jean on 09-20-2022 Albumin [Mass/Vol] 3.1 g/dL 3.2-5.5 [facility] Automated erythrocytes count in urine sediment (number/area)Ordered By: Buddy Jean on 09-20-2022 RBC Auto (Urine sed) [#/Area] 0-1 [HPF] 0-4 [facility] Automated leukocytes count i n urine sediment (number/area)Ordered By: Buddy Jean on 09-20-2022 WBC Auto (Urine sed) [#/Area] 1-2 [HPF] 0-4 [facility] Automated urine hyaline cast s count (number/volume)Ordered By: Buddy Jean on 09-20-2022 Hyaline casts Auto (U) [#/Vol] None seen [LPF] 0-1 [facility] Bilirubin Test strip Ql (U)O rdered By: Buddy Jean on 09-20-2022 Bilirubin Ql (U) Negative Negative [facility] Casts typing in urine sedime nt by light microscopyOrdered By: Buddy Jean on 09-20-2022 Casts LM Nom (Urine sed) None seen [LPF] None S een [facility] Color Auto (U)Ordered By: Ab bijal Jean on 09-20-2022 Color (U) Yellow Yellow [facility] Creatinine [Mass/volume] in UrineOrdered By: Buddy Jean on 09-20-2022 Creatinine (U) [Mass/Vol] 177.6 mg/dL [facility] Comment on above: No reference range e stablished Creatinine and Glomerular fi ltration rate.predicted panel (S/P/Bld)Ordered By: Buddy Jean on 09-20-2022 Creatinine [Mass/Vol] 1.09 mg/dL 0.44-1.03 [facility] Erythrocyte distribution wid th Auto (RBC) [Ratio]Ordered By: Buddy Jean on 09-20-2022 Erythrocyte distribution width (RBC) [Ratio] 14.1 % 11.9-15.3 [facility] Estimated glomerular filtrat ion rate (GFR) non- AmericanOrdered By: Buddy Jean on 09-20-2022 GFR/1.73 sq M.predicted among non-blacks MDRD (S/P/Bld) [Vol rate/Area] 52 mL/Min [facility] Hematocrit Auto (Bld) [Volum e fraction]Ordered By: Buddy Jean on 09-20-2022 Hematocrit (Bld) [Volume fraction] 35.0 % 34.0-46.4 [facility] Hemoglobin [Mass/volume] in BloodOrdered By: Buddy Jean on 09-20-2022 Hemoglobin (Bld) [Mass/Vol] 11.6 g/dL 11.8-15.4 [facility] Ketones Auto test strip (U) [Mass/Vol]Ordered By: Buddy Jean on 09-20-2022 Ketones (U) [Mass/Vol] Negative Negative [facility] Laboratory - Chemistry and C hemistry - challengeOrdered By: Buddy Jean on 09-20-2022 Magnesium [Mass/Vol] 2.0 mg/dL 1.6-2.6 [facility] MCH Auto (RBC) [Entitic mass ]Ordered By: Buddy Jean on 09-20-2022 MCH (RBC) [Entitic mass] 32.6 pg 24.7-34.3 [facility] MCHC Auto (RBC) [Mass/Vol]Or dered By: Buddy Jean on 09-20-2022 MCHC (RBC) [Mass/Vol] 33.0 g/dL 32.0-35.0 [facility] MCV Auto (RBC) [Entitic vol] Ordered By: Buddy Jean on 09-20-2022 MCV (RBC) [Entitic vol] 99.0 fL 80-100 [facility] Nitrite Test strip Ql (U)Ord ered By: Buddy Jean on 09-20-2022 Nitrite Ql (U) Negative Negative [facility] No Panel InformationOrdered By: Buddy Jean on 09-20-2022 25-Hydroxy Vitamin D Total 37.6 ng/mL 30-100 [facility] Comment on above: VITAMIN D STATUS 25( [place])VITAMIN D RANGE (ng/mL) Deficient <20 Insufficient 20 to <30Sufficient 30 to 100Reference: Lilly MF,Obed NC, Jaimie BAKER, et al. Evaluation,treatment, and prevention of vitamin D deficiency; an Endocrine Society clinical practice guideline. JCEM. 2010; 96(7):1911-30. Estimated GFR () > 60 mL/Min [facility] Comment on above: GFR estimated refere nce range: According to KDOQI guidelines, <60 ml/min/1.73m2 is sufficient to diagnose a patient with chronic kidney disease. Pharmacy Creatinine Clearance (Chem N/A [facility] Phosphate [Mass/volume] in S violetta or PlasmaOrdered By: Buddy Jean on 09-20-2022 Phosphate [Mass/Vol] 4.3 mg/dL 2.5-4.6 [facility] Platelet mean volume Auto (B ld) [Entitic vol]Ordered By: Buddy Jean on 09-20-2022 Platelet mean volume (Bld) [Entitic vol] 10.2 fL 6.3-10.7 [facility] Platelets Auto (Bld) [#/Vol] Ordered By: Buddy Jean on 09-20-2022 Platelets (Bld) [#/Vol] 259 10*3/uL 150-450 [facility] Protein Auto test strip (U) [Mass/Vol]Ordered By: Buddy Jean on 09-20-2022 Protein (U) [Mass/Vol] Negative Negative Fi [facility] Protein [Mass/volume] in Uri neOrdered By: Buddy Jean on 09-20-2022 Protein (U) [Mass/Vol] 12 mg/dL 0-9 Fi [facility] RBC Auto (Bld) [#/Vol]Ordere d By: Buddy Jean on 09-20-2022 RBC (Bld) [#/Vol] 3.54 10*6/uL 3.60-5.00 [facility] Serum or plasma anion gap de terminationOrdered By: Buddy Jean on 09-20-2022 Anion gap [Moles/Vol] 13.3 mmol/L 6.0-15.0 [facility] Serum or plasma calcium maggie urement (mass/volume)Ordered By: Buddy Jean on 09-20-2022 Calcium [Mass/Vol] 9.2 mg/dL 8.2-10.2 [facility] Serum or plasma chloride britton surement (moles/volume)Ordered By: Buddy Jean on 09-20-2022 Chloride [Moles/Vol] 102 mmol/L 95-114 [facility] Serum or plasma glucose maggie urement (mass/volume)Ordered By: Buddy Jean on 09-20-2022 Glucose [Mass/Vol] 220 mg/dL 70-100 [facility] Comment on above: ADA recommended refe rence rangeRandom Glucose Reference Range is dependent on time and content of last meal. Glucose of more than 200 mg/dL in a nonstressed, ambulatory subject supports the diagnosis of Diabetes Mellitus. Serum or plasma intact parat hyroid hormone measurement (mass/volume)Ordered By: Buddy Jean on 09-20-2022 Parathyrin.intact [Mass/Vol] 66.5 pg/mL 12-88 [facility] Serum or plasma potassium me asurement (moles/volume)Ordered By: Buddy Jean on 09-20-2022 Potassium [Moles/Vol] 5.1 mmol/L 3.5-5.1 [facility] Serum or plasma sodium measu rement (moles/volume)Ordered By: Buddy Jean on 09-20-2022 Sodium [Moles/Vol] 135 mmol/L 136-146 [facility] Serum or plasma total carbon dioxide measurement (moles/volume)Ordered By: Buddy Jean on 09-20-2022 CO2 [Moles/Vol] 24.8 mmol/L 22.0-30.0 [facility] Serum or plasma urea nitroge n measurement (mass/volume)Ordered By: Buddy Jean on 09-20-2022 Urea nitrogen [Mass/Vol] 24 mg/dL 9-23 [facility] Serum or plasma uric acid me asurement (mass/volume)Ordered By: Buddy Jean on 09-20-2022 Urate [Mass/Vol] 5.7 mg/dL 2.6-7.2 [facility] Specific gravity Auto test s trip (U) [Rel density]Ordered By: Buddy Jean on 09-20-2022 Specific gravity (U) [Rel density] 1.021 1.001-1.030 [facility] Squamous epithelial cells de tection in urine sediment by light microscopyOrdered By: Buddy Jean on 09-20-2022 Epithelial cells.squamous LM Ql (Urine sed) 5-9 [HPF] 0-2 [facility] Urine bacteria detection by automated methodOrdered By: Buddy Jean on 09-20-2022 Bacteria Auto Ql (U) None seen None Seen [facility] Urine clarity by refractomet ry automatedOrdered By: Buddy Jean on 09-20-2022 Clarity Refractometry automated (U) Clear Clear [facility] Urine glucose measurement by automated test strip (mass/volume)Ordered By: Buddy Jean on 09-20-2022 Glucose Auto test strip (U) [Mass/Vol] Normal mg/dL Normal [facility] Urine hemoglobin detection b y automated test stripOrdered By: Buddy Jean on 09-20-2022 Hemoglobin Auto test strip Ql (U) Negative Negative [facility] Urine leukocyte esterase det ection by automated test stripOrdered By: Buddy Jean on 09-20-2022 Leukocyte esterase Auto test strip Ql (U) Negative Negative [facility] Urine protein/creatinine rat ioOrdered By: Buddy Jean on 09-20-2022 Protein/Creatinine (U) [Ratio] 68 mg/g{Cre} 0-200 [facility] Urobilinogen Auto test strip (U) [Mass/Vol]Ordered By: Buddy Jean on 09-20-2022 Urobilinogen (U) [Mass/Vol] Normal mg/dL Normal [facility] WBC Auto (Bld) [#/Vol]Ordere d By: Buddy Lopezdir on 09-20-2022 WBC (Bld) [#/Vol] 5.4 10*3/uL 3.8-11.6 [facility] pH Auto test strip (U)Ordere d By: Buddy Jean on 09-20-2022 pH (U) 5.5 [pH] 5.0-9.0 [facility] Basophils Auto (Bld) [#/Vol] Ordered By: Sherrill Carlin on 07-12-2022 Basophils (Bld) [#/Vol] 0.1 10*3/uL 0.0-0.2 [facility] Basophils/100 WBC Auto (Bld) Ordered By: Sherrill Carlin on 07-12-2022 Basophils/100 WBC (Bld) 1.2 % . [facility] Blood hemoglobin measurement (mass/volume)Ordered By: Sherrill Carlin on 07-12-2022 Hemoglobin (Bld) [Mass/Vol] 12.1 g/dL 11.8-15.4 [facility] Blood leukocytes automated c ount (number/volume)Ordered By: Sherrill Carlin on 07-12-2022 WBC (Bld) [#/Vol] 5.2 10*3/uL 4.5-11.0 [facility] Body fluid albumin measureme nt (mass/volume)Ordered By: Sherrill Carlin on 07-12-2022 Albumin (Body fld) [Mass/Vol] 3.3 g/dL 3.2-5.5 [facility] Cholesterol [Mass/volume] in Serum or PlasmaOrdered By: Sherrill Carlin on 07-12-2022 Cholesterol [Mass/Vol] 166 mg/dL 140-200 [facility] Comment on above: Chol less than 200 m g/dl low risk Chol 201-239 mg/dl borderline risk Chol 240 mg/dl and greater high risk Chol less than 200 m g/dl low riskChol 201-239 mg/dl borderline riskChol 240 mg/dl and greater high risk Cholesterol in LDL Calc [Mas s/Vol]Ordered By: Sherrill Carlin on 07-12-2022 Cholesterol in LDL [Mass/Vol] 81 mg/dL 0-100 [facility] Comment on above: LDL ATP III CLASSIFI CATION LDL less than 100 mg/dL Optimal LDL 100-129 mg/dL Near or above optimal LDL 130-159 mg/dL Borderline high LDL 160-189 mg/dL High LDL greater than 189 mg/dL Very high LDL ATP III CLASSIFI CATIONLDL less than 100 mg/dL OptimalLDL 100-129 mg/dL Near or above optimalLDL 130-159 mg/dL Borderline highLDL 160-189 mg/dL HighLDL greater than 189 mg/dL Very high Cholesterol in VLDL Calc [Ma ss/Vol]Ordered By: Sherrill Carlin on 07-12-2022 Cholesterol in VLDL [Mass/Vol] 13 mg/dL [facility] Creatinine [Mass/volume] in UrineOrdered By: Sherrill Carlin on 07-12-2022 Creatinine (U) [Mass/Vol] 262.2 mg/dL [facility] Comment on above: No reference range e stablished Creatinine and Glomerular fi ltration rate.predicted panel (S/P/Bld)Ordered By: Sherrill Carlin on 07-12-2022 Creatinine [Mass/Vol] 1.40 mg/dL 0.44-1.03 [facility] Eosinophils Auto (Bld) [#/Vo l]Ordered By: Sherrill Carlin on 07-12-2022 Eosinophils (Bld) [#/Vol] 0.5 10*3/uL 0.0-0.45 [facility] Eosinophils/100 WBC Auto (Bl d)Ordered By: Sherrill Carlin on 07-12-2022 Eosinophils/100 WBC (Bld) 9.6 % . [facility] Erythrocyte distribution wid th Auto (RBC) [Ratio]Ordered By: Sherrill Carlin on 07-12-2022 Erythrocyte distribution width (RBC) [Ratio] 13.7 % 11.9-15.3 [facility] Estimated glomerular filtrat ion rate (GFR) non- AmericanOrdered By: Sherrill Carlin on 07-12-2022 GFR/1.73 sq M.predicted among non-blacks MDRD (S/P/Bld) [Vol rate/Area] 39 mL/Min [facility] Globulin Calc (S) [Mass/Vol] Ordered By: Sherrill Carlin on 07-12-2022 Globulin (S) [Mass/Vol] 3.3 g/dL [facility] Glucose mean value [Mass/vol ume] in Blood Estimated from glycated hemoglobinOrdered By: Sherrill Carlin on 07-12-2022 Average glucose Estimated from glycated hemoglobin (Bld) [Mass/Vol] 171 mg/dL [facility] Hematocrit Auto (Bld) [Volum e fraction]Ordered By: Sherrill Carlin on 07-12-2022 Hematocrit (Bld) [Volume fraction] 36.3 % 34.0-46.4 [facility] Hemoglobin A1c percentageOrd ered By: Sherrill Carlin on 07-12-2022 HbA1c (Bld) [Mass fraction] 7.6 % 4.3-5.6 [facility] Comment on above: Increased risk for d iabetes: 5.7 - 6.4 diabetes: >6.4 glycemic control for adults with diabetes: <7.0 Increased risk for d iabetes: 5.7 - 6.4diabetes: >6.4glycemic control for adults with diabetes: <7.0 Laboratory - Hematology and Cell countsOrdered By: Sherrill Carlin on 07-12-2022 Nucleated RBC/100 WBC (Bld) [Ratio] 0.1 % 0-0.5 [facility] Lymphocytes Auto (Bld) [#/Vo l]Ordered By: Sherrill Carlin on 07-12-2022 Lymphocytes (Bld) [#/Vol] 1.0 10*3/uL 1.00-4.8 [facility] Lymphocytes/100 WBC Auto (Bl d)Ordered By: Sherrill Carlin on 07-12-2022 Lymphocytes/100 WBC (Bld) 18.5 % . [facility] MCH Auto (RBC) [Entitic mass ]Ordered By: Sherrill Carlin on 07-12-2022 MCH (RBC) [Entitic mass] 33.2 pg 24.7-34.3 [facility] MCHC Auto (RBC) [Mass/Vol]Or dered By: Sherrill Carlin on 07-12-2022 MCHC (RBC) [Mass/Vol] 33.2 g/dL 32.0-35.0 [facility] MCV Auto (RBC) [Entitic vol] Ordered By: Sherrill Carlin on 07-12-2022 MCV (RBC) [Entitic vol] 100.0 fL 80-100 [facility] Monocytes Auto (Bld) [#/Vol] Ordered By: Sherrill Carlin on 07-12-2022 Monocytes (Bld) [#/Vol] 0.6 10*3/uL 0.0-0.8 [facility] Monocytes/100 WBC Auto (Bld) Ordered By: Sherrill Carlin on 07-12-2022 Monocytes/100 WBC (Bld) 10.6 % . [facility] Neutrophils Auto (Bld) [#/Vo l]Ordered By: Sherrill Carlin on 07-12-2022 Neutrophils (Bld) [#/Vol] 3.1 10*3/uL 1.8-7.7 [facility] Neutrophils/100 WBC Auto (Bl d)Ordered By: Sherrill Carlin on 07-12-2022 Neutrophils/100 WBC (Bld) 60.1 % . [facility] No Panel InformationOrdered By: Sherrill Carlin on 07-12-2022 Estimated GFR () 48 mL/Min [facility] Comment on above: GFR estimated refere nce range: According to KDOQI guidelines, <60 ml/min/1.73m2 is sufficient to diagnose a patient with chronic kidney disease. Pharmacy Creatinine Clearance (Chem N/A [facility] Phosphate [Mass/volume] in S violetta or PlasmaOrdered By: Sherrill Carlin on 07-12-2022 Phosphate [Mass/Vol] 4.2 mg/dL 2.5-4.6 [facility] Platelet mean volume Auto (B ld) [Entitic vol]Ordered By: Sherrill Carlin on 07-12-2022 Platelet mean volume (Bld) [Entitic vol] 10.3 fL 6.3-10.7 [facility] Platelets Auto (Bld) [#/Vol] Ordered By: Sherrill Carlin on 07-12-2022 Platelets (Bld) [#/Vol] 285 10*3/uL 150-450 [facility] Protein [Mass/volume] in Ser um or PlasmaOrdered By: Sherrill Carlin on 07-12-2022 Protein [Mass/Vol] 6.6 g/dL 6.1-7.9 [facility] RBC Auto (Bld) [#/Vol]Ordere d By: Sherrill Carlin on 07-12-2022 RBC (Bld) [#/Vol] 3.63 10*6/uL 3.60-5.00 [facility] Serum or plasma alanine waldron otransferase measurement without P-5'-P (enzymatic activiOrdered By: Sherrill Carlin on 07-12-2022 ALT No additional P-5'-P [Catalytic activity/Vol] 14 U/L 10-60 [facility] Serum or plasma albumin/glob ulin mass ratioOrdered By: Sherrill Carlin on 07-12-2022 Albumin/Globulin [Mass ratio] 1.0 {ratio} [facility] Serum or plasma alkaline kerry sphatase measurement (enzymatic activity/volume)Ordered By: Sherrill Carlin on 07-12-2022 ALP [Catalytic activity/Vol] 67 U/L 32-92 [facility] Serum or plasma aspartate am inotransferase measurement (enzymatic activity/volume)Ordered By: Sherrill Carlin on 07-12-2022 AST [Catalytic activity/Vol] 22 U/L 10-42 [facility] Serum or plasma calcium maggie urement (mass/volume)Ordered By: Sherrill Carlin on 07-12-2022 Calcium [Mass/Vol] 9.0 mg/dL 8.2-10.2 [facility] Serum or plasma chloride britton surement (moles/volume)Ordered By: Sherrill Carlin on 07-12-2022 Chloride [Moles/Vol] 99 mmol/L 95-114 [facility] Serum or plasma glucose maggie urement (mass/volume)Ordered By: Sherrill Carlin on 07-12-2022 Glucose [Mass/Vol] 199 mg/dL 70-100 [facility] Comment on above: ADA recommended refe rence range Random Glucose Reference Range is dependent on time and content of last meal. Glucose of more than 200 mg/dL in a nonstressed, ambulatory subject supports the diagnosis of Diabetes Mellitus. ADA recommended refe rence rangeRandom Glucose Reference Range is dependent on time and content of last meal. Glucose of more than 200 mg/dL in a nonstressed, ambulatory subject supports the diagnosis of Diabetes Mellitus. Serum or plasma high density lipoprotein (HDL) cholesterol measurementOrdered By: Sherrill Carlin on 07-12-2022 Cholesterol in HDL [Mass/Vol] 72 mg/dL 35-85 [facility] Comment on above: HDL CHOL ATP-III CLA SSIFICATION Cardiovascular Risk HDL > or equal to 60 mg/dL LOW HDL < 40 mg/dL HIGH HDL CHOL ATP-III CLA SSIFICATION Cardiovascular RiskHDL > or equal to 60 mg/dL LOWHDL < 40 mg/dL HIGH Serum or plasma intact parat hyroid hormone measurement (mass/volume)Ordered By: Sherrill Carlin on 07-12-2022 Parathyrin.intact [Mass/Vol] 82.4 pg/mL [facility] Serum or plasma potassium me asurement (moles/volume)Ordered By: Sherrill Carlin on 07-12-2022 Potassium [Moles/Vol] 5.4 mmol/L 3.5-5.1 [facility] Serum or plasma sodium measu rement (moles/volume)Ordered By: Sherrill Carlin on 07-12-2022 Sodium [Moles/Vol] 137 mmol/L 136-146 [facility] Serum or plasma total biliru bin measurement (mass/volume)Ordered By: Sherrill Carlin on 07-12-2022 Bilirubin [Mass/Vol] 0.4 mg/dL 0.3-1.2 [facility] Serum or plasma total carbon dioxide measurement (moles/volume)Ordered By: Sherrill Carlin on 07-12-2022 CO2 [Moles/Vol] 24.6 mmol/L 22.0-30.0 [facility] Serum or plasma total choles terol/high density lipoprotein (HDL) cholesterol mass ratOrdered By: Sherrill Carlin on 07-12-2022 Cholesterol.total/Choles terol in HDL [Mass ratio] 2.3 {ratio} <5.0 [facility] Serum or plasma urea nitroge n measurement (mass/volume)Ordered By: Sherrill Carlin on 07-12-2022 Urea nitrogen [Mass/Vol] 24 mg/dL 9- [facility] Triglyceride [Mass/volume] i n Serum or PlasmaOrdered By: Sherrill Carlin on 07-12-2022 Triglyceride [Mass/Vol] 66 mg/dL 35-149 [facility] Comment on above: TRIG ATP III CLASSIF ICATION TRIG less than 150 mg/dL Normal TRIG 150-199 mg/dL Borderline high TRIG 200-500 mg/dL High TRIG greater than 500 mg/dL Very high Standard traceable to the Center for Disease Conrtrol and Prevention (CDC) test method. TRIG ATP III CLASSIF ICATIONTRIG less than 150 mg/dL NormalTRIG 150-199 mg/dL Borderline highTRIG 200-500 mg/dL High TRIG greater than 500 mg/dL Very highStandard traceable to the Center for Disease Conrtrol and Prevention (CDC) test method. Urine microalbumin measureme nt with detection limit of 20 mg/L or less (mass/volume)Ordered By: Sherrill Carlin on 07-12-2022 Albumin DL <= 20 mg/L (U) [Mass/Vol] 2.3 mg/dL 0.0-1.8 [facility] Urine microalbumin/creatinin e mass ratioOrdered By: Sherrill Carlin on 07-12-2022 Albumin/Creatinine DL <= 20 mg/L (U) [Mass ratio] 8.0 mg/g 0.0-30.0 [facility] Comment on above: 30-300 mg/g indicate s an increased risk for diabetic nephropathy. Greater than 300 mg/g is consistent with clinical nephropathy. (Am. J. Kidney Disease 1995, 25:107) CULTURE, URINE, ROUTINEon CULTURE, URINE, ROUTINE SEE NOTE Normal [facility] Comment on above: Result Comment: CULTURE, URINE, ROUTINE Micro Number: [id number] Test Status: Final Specimen Source: Urine Specimen Quality: Adequate Result: No Growth Performed By: #### 3 95 #### [facility] [address], [address] [place] [address] Team Member: Edmundo Dacosta MD ALBUMIN, RANDOM URINE W/CREA Tevin 05-13-2021 ALBUMIN, URINE 0.3 mg/dL Normal See Note: [facility] Comment on above: Result Comment: Veronika martinez Range: Reference Range Not established Performed By: #### 5 [id number], [id number], 7600, 6517 #### [facility] [address], [address] [place] [address] Team Member: Edmundo Dacosta MD ALBUMIN/CREATININE RATIO, RANDOM URINE 13 mcg/mg creat Normal <30 [facility] Comment on above: Result Comment: The ADA defines abnormalities in albumin excretion as follows: Category Result (mcg/mg creatinine) Normal <30 Microalbuminuria 30-299 Clinical albuminuria > OR = 300 The ADA recommends that at least two of three specimens collected within a 3-6 month period be abnormal before considering a patient to be within a diagnostic category. Performed By: #### 5 [id number], [id number], 0, 6517 #### [facility] [address], [address] [place] [address] Team Member: Edmundo Dacosta MD Creatinine (U) [Mass/Vol] 24 mg/dL Normal 20-275 [facility] Comment on above: Performed By: #### 5 [id number], 65203, 7600, 6517 #### [facility] [place] [address] Team Member: Edmundo Dacosta MD COMPREHENSIVE METABOLIC PANE [facility] 05-13-2021 Albumin [Mass/Vol] 3.8 g/dL Normal 3.6-5.1 [facility] Comment on above: Performed By: #### 5 [id number], 23339, 7600, 6517 #### [facility] [address], [address] [place] [address] Team Member: Edmundo Dacosta MD Albumin/Globulin [Mass ratio] 1.3 {ratio} Normal 1.0-2.5 [facility] Comment on above: Performed By: #### 5 [id number], [id number], 7600, 6517 #### [facility] [address], [address] [place] [address] Team Member: Edmundo Dacosta MD ALP [Catalytic activity/Vol] 77 U/L Normal 37-153 [facility] Comment on above: Performed By: #### 5 [id number], , 0, 6517 #### [facility] of [address], [address] [place] [address] Team Member: Edmundo Dacosta MD ALT [Catalytic activity/Vol] 12 U/L Normal 6-29 [facility] Comment on above: Performed By: #### 5 [id number], , 0, 6517 #### [facility] of [address], [address] [place] [address] Team Member: Edmundo Dacosta MD AST [Catalytic activity/Vol] 20 U/L Normal 10-35 [facility] Comment on above: Performed By: #### 5 [id number], , 7599, 6517 #### [facility] of [address], [address] [place] [address] Team Member: Edmundo Dacosta MD Bilirubin [Mass/Vol] 0.6 mg/dL Normal 0.2-1.2 [facility] Comment on above: Performed By: #### 5 [id number], , 7599, 6517 #### [facility] of [address], [address] [place] [address] Team Member: Edmundo Dacosta MD BUN/CREATININE RATIO NOT APPLICABLE Normal 6-22 [facility] Comment on above: Performed By: #### 5 [id number], , 7599, 6517 #### [facility] of [address], [address] [place] [address] Team Member: Edmundo Dacosta MD Calcium [Mass/Vol] 9.3 mg/dL Normal 8.6-10.4 [facility] Comment on above: Performed By: #### 5 [id number], 36962, 7599, 6517 #### [facility] of [address], [address] [place] [address] Team Member: Edmundo Dacosta MD Chloride [Moles/Vol] 103 mmol/L Normal 98-110 [facility] Comment on above: Performed By: #### 5 [id number], 00839, 0, 6517 #### [facility] [place] [address] Team Member: Edmundo Dacosta MD CO2 [Moles/Vol] 27 mmol/L Normal 20-32 [facility] Comment on above: Performed By: #### 5 8984, , 0, 6517 #### [facility] [place] [address] Team Member: Edmundo Dacosta MD Creatinine [Mass/Vol] 1.03 mg/dL Normal 0.50-1.[address] [facility] Comment on above: Result Comment: For patients >49 years of age, the reference limit for Creatinine is approximately 13% higher for people identified as -Lao. Performed By: #### 5 [id number], , 7599, 6517 #### [facility] [place] [address] Team Member: Edmundo Dacosta MD eGFR NON-AFR. ARMENIAN 62 mL/min/1.73m2 Normal > OR = 60 [facility] Comment on above: Performed By: #### 5 8984, , 7599, 6517 #### [facility] [place] [address] Team Member: Edmundo Dacosta MD GFR/1.73 sq M.predicted among blacks MDRD (S/P/Bld) [Vol rate/Area] 72 mL/min/{1.73_m2} Normal > OR = 60 [facility] Comment on above: Performed By: #### 5 8984, , 7600, 6517 #### [facility] [place] [address] Team Member: Edmundo Dacosta MD Globulin (S) [Mass/Vol] 2.9 g/dL Normal 1.9-3.7 [facility] Comment on above: Performed By: #### 5 [id number], 34821, 0, 6517 #### [facility] [place] [address] Team Member: Edmundo Dacosta MD Glucose [Mass/Vol] 103 mg/dL High 65-99 [facility] Comment on above: Result Comment: Fasting reference interval For someone without known diabetes, a glucose value between 100 and 125 mg/dL is consistent with prediabetes and should be confirmed with a follow-up test. Performed By: #### 5 8984, , 0, 6517 #### [facility] [place] [address] Team Member: Edmundo Dacosta MD Potassium [Moles/Vol] 5.0 mmol/L Normal 3.5-5.[address] [facility] [facility] Comment on above: Performed By: #### 5 8984, , 7599, 6517 #### [facility] [place] [address] Team Member: Edmundo Dacosta MD Protein [Mass/Vol] 6.7 g/dL Normal 6.1-8.1 [facility] Comment on above: Performed By: #### 5 8984, , 7599, 6517 #### [facility] [place] [address] Team Member: Edmundo Dacosta MD Sodium [Moles/Vol] 137 mmol/L Normal 135-146 [facility] Comment on above: Performed By: #### 5 8984, , 0, 6517 #### [facility] [place] [address] Team Member: Edmundo Dacosta MD Urea nitrogen [Mass/Vol] 23 mg/dL Normal 7-25 [facility] Comment on above: Performed By: #### 5 8984, 45741, 7599, 6517 #### [facility] [place] [address] Team Member: Edmundo Dacosta MD LIPID PANEL, [facility] 04-28 Cholesterol [Mass/Vol] 178 mg/dL Normal <200 [facility] Comment on above: Performed By: #### 5 8984, 47499, 7600, 6517 #### [facility] [address], [address] [place] [address] Team Member: Edmundo Dacosta MD Cholesterol in HDL [Mass/Vol] 71 mg/dL Normal > OR = 50 [facility] Comment on above: Performed By: #### 5 8984, 68840, 7600, 6517 #### [facility] [address], [address] [place] [address] Team Member: Edmundo Dacosta MD Cholesterol in LDL [Mass/Vol] 94 mg/dL Normal [facility] Comment on above: Result Comment: Refe rence range: <100 Desirable range <100 mg/dL for primary prevention; <70 mg/dL for patients with CHD or diabetic patients with > or = 2 CHD risk factors. LDL-C is now calculated using the Claus calculation, which is a validated novel method providing better accuracy than the Friedewald equation in the estimation of LDL-C. Ronald BHAKTA et al. ANTHONY. 2013;310(19): 9650-5015 (http://education.[employer].Reebonz/faq/XBV810) Performed By: #### 5 8984, 30524, 7600, 6517 #### [facility] [address], [address] [place] [address] Team Member: Edmundo Dacosta MD Cholesterol.total/Choles terol in HDL [Mass ratio] 2.5 {ratio} Normal <5.0 [facility] Comment on above: Performed By: #### 5 8984, 38685, 7600, 6517 #### [facility] [address], [address] [place] [address] Team Member: Edmundo Dacosta MD NON HDL CHOLESTEROL 107 mg/dL (calc) Normal <130 [facility] Comment on above: Result Comment: For patients with diabetes plus 1 major ASCVD risk factor, treating to a non-HDL-C goal of <100 mg/dL (LDL-C of <70 mg/dL) is considered a therapeutic option. Performed By: #### 5 8984, 68561, 0, 6517 #### [facility] [address], [address] [place] [address] Team Member: Edmundo Dacosta MD Triglyceride [Mass/Vol] 51 mg/dL Normal <150 [facility] Comment on above: Performed By: #### 5 8984, 54907, 0, 6517 #### [facility] [address], [address] [place] [address] Team Member: Edmundo Dacosta MD TSH+FREE T4on 05-13-2021 Free T4 [Mass/Vol] 0.9 ng/dL Normal 0.8-1.8 [facility] Comment on above: Performed By: #### 5 8984, 13290, 0, 6517 #### [facility] [address], [address] [place] [address] Team Member: Edmundo Dacosta MD TSH Qn 1.64 m[IU]/L Normal [facility] Comment on above: Result Comment: Refe rence Range > or = 20 Years 0.40-4.50 Ranges First trimester 0.26-2.66 Second trimester 0.55-2.73 Third trimester 0.43-2.91 Performed By: #### 5 8984, 25128, 0, 6517 #### [facility] [address], [address] [place] [address] Team Member: Edmundo Dacosta MD Estimated glomerular filtrat ion rate (GFR) non- Americanon 01-01-2021 GFR/1.73 sq M predicted among non-blacks MDRD (S/P/Bld) [Vol rate/Area] 54 mL/min/{1.73_m2} [facility] Otheron 01-01-2021 GFR/1.73 sq M.predicted MDRD (S/P/Bld) [Vol rate/Area] mL/min/{1.73_m2} [facility] Comment on above: GFR estimated refere nce range: According to KDOQI guidelines, <60 ml/min/1.73m2 is sufficient to diagnose a patient with chronic kidney disease. Pharmacy Creatinine Clearance (Chem N/A [facility] Serum or plasma calcium maggie urement (mass/volume)on 01-01-2021 Calcium [Mass/Vol] 9.1 mg/dL 8.2-10.2 [facility] Serum or plasma chloride britton surement (moles/volume)on 01-01-2021 Chloride [Moles/Vol] 104 mmol/L 95-114 [facility] Serum or plasma creatinine m easurement with calculation of estimated glomerular filtron 01-01-2021 Creatinine [Mass/Vol] 1.07 mg/dL 0.44-1.03 [facility] Serum or plasma glucose maggie urement (mass/volume)on 01-01-2021 Glucose [Mass/Vol] 78 mg/dL 70-100 [facility] Comment on above: ADA recommended refe rence rangeRandom Glucose Reference Range is dependent on time and content of last meal. Glucose of more than 200 mg/dL in a nonstressed, ambulatory subject supports the diagnosis of Diabetes Mellitus. Serum or plasma potassium me asurement (moles/volume)on 01-01-2021 Potassium [Moles/Vol] 4.4 mmol/L 3.5-5.1 [facility] Serum or plasma sodium measu rement (moles/volume)on 01-01-2021 Sodium [Moles/Vol] 138 mmol/L 136-146 [facility] Serum or plasma total carbon dioxide measurement (moles/volume)on 01-01-2021 CO2 [Moles/Vol] 25.3 mmol/L 22.0-30.0 [facility] Serum or plasma urea nitroge n measurement (mass/volume)on 01-01-2021 Urea nitrogen [Mass/Vol] 18 mg/dL 9-23 [facility] CULTURE, URINE, ROUTINEon CULTURE, URINE, ROUTINE SEE NOTE Normal Q uest Diagnostics Comment on above: Result Comment: CULTURE, URINE, ROUTINE Micro Number: [id number] Test Status: Final Specimen Source: NOT GIVEN Specimen Quality: Adequate Result: Less than 10,000 CFU/mL of single Gram negative organism isolated. No further testing will be performed. If clinically indicated, recollection using a method to minimize contamination, with prompt transfer to Urine Culture Transport Tube, is recommended. Performed By: #### 3 95 #### [address], [address] [place] [id number] Team Member: Edmundo Dacosta MD Vital Signs Date Time Vital Sign Value Performing Clinician Facility 01-29-2025 13:24-0500 Body height 160.02 cm [facility] 01-29-2025 13:24-0500 Body mass index (BMI) [Ratio] 27.3 kg/m2 [facility] 01-29-2025 13:24-0500 Body weight 70.1 kg [facility] 01-29-2025 13:24-0500 Diastolic blood pressure 70 mm[Hg] [facility] 01-29-2025 13:24-0500 Heart rate 86 /min [facility] 01-29-2025 13:24-0500 Respiratory rate 18 /min [facility] 01-29-2025 13:24-0500 SaO2% (BldA) [Mass fraction] 97 % [facility] 01-29-2025 13:24-0500 Systolic blood pressure 111 mm[Hg] [facility] 11-19-2024 13:42-0500 Body height 165.1 cm Sherrill Leematt LACKEY Work Phone: [facility] 11-19-2024 13:42-0500 Body mass index (BMI) [Ratio] 25.56 kg/m2 Sherrill Jesusmatt DO Work Phone: [facility] 11-19-2024 13:42-0500 Body temperature 97.59 [degF] Sherrill Jesusmatt DO Work Phone: [facility] 11-19-2024 13:42-0500 Body weight 69.67 kg Sherrill Cecillesarah DO Work Phone: [facility] 11-19-2024 13:42-0500 Diastolic blood pressure 70 mm[Hg] Sherrill Carlin DO Work Phone: [facility] 11-19-2024 13:42-0500 Heart rate 84 /min Sherrill Lees DO Work Phone: [facility] 11-19-2024 13:42-0500 Respiratory rate 18 /min Sherrill Lees DO Work Phone: [facility] 11-19-2024 13:42-0500 SaO2% (BldA) [Mass fraction] 98 % Sherrill Lees DO Work Phone: [facility] 11-19-2024 13:42-0500 Systolic blood pressure 110 mm[Hg] Sherrill Lees DO Work Phone: [facility] 11-14-2024 11:21-0500 Body height 160.02 cm [facility] 11-14-2024 11:21-0500 Body mass index (BMI) [Ratio] 27.3 kg/m2 [facility] 11-14-2024 11:21-0500 Body weight 70.08 kg [facility] 11-14-2024 11:21-0500 Diastolic blood pressure 78 mm[Hg] [facility] 11-14-2024 11:21-0500 Heart rate 83 /min [facility] 11-14-2024 11:21-0500 Respiratory rate 18 /min [facility] 11-14-2024 11:21-0500 SaO2% (BldA) [Mass fraction] 99 % [facility] 11-14-2024 11:21-0500 Systolic blood pressure 137 mm[Hg] [facility] 10-09-2024 11:48-0500 Body height 160.02 cm Sherrill Carlin DO Work Phone: [facility] 10-09-2024 11:48-0500 Body mass index (BMI) [Ratio] 27.1 kg/m2 Sherrill Lees DO Work Phone: [facility] 10-09-2024 11:48-0500 Body weight 69.51 kg Sherrill Lees DO Work Phone: [facility] 10-09-2024 11:48-0500 Diastolic blood pressure 68 mm[Hg] Sherrill Yuhas DO Work Phone: [facility] 10-09-2024 11:48-0500 Heart rate 87 /min Sherrill Yuhas DO Work Phone: [facility] 10-09-2024 11:48-0500 Respiratory rate 18 /min Sherrill Yuhas DO Work Phone: [facility] 10-09-2024 11:48-0500 SaO2% (BldA) [Mass fraction] 98 % Sherrill Yuhas DO Work Phone: [facility] 10-09-2024 11:48-0500 Systolic blood pressure 109 mm[Hg] Sherrill Yuhas DO Work Phone: [facility] 09-25-2024 08:29-0400 Body height 160.02 cm DO Sherrill Yuhas Work Phone: [facility] 09-25-2024 08:29-0400 Body mass index (BMI) [Ratio] 26.9 kg/m2 DO Sherrill Yuhas Work Phone: [facility] 09-25-2024 08:29-0400 Body temperature 96.5 [degF] DO Sherrill Yuhas Work Phone: [facility] 09-25-2024 08:29-0400 Body weight 68.94 kg DO Sherrill Yuhas Work Phone: [facility] 09-25-2024 08:29-0400 Diastolic blood pressure 71 mm[Hg] DO Sherrill Yuhas Work Phone: [facility] 09-25-2024 08:29-0400 Heart rate 80 /min DO Sherrill Yuhas Work Phone: [facility] 09-25-2024 08:29-0400 Respiratory rate 16 /min DO Sherrill Yuhas Work Phone: [facility] 09-25-2024 08:29-0400 SaO2% (BldA) [Mass fraction] 100 % DO Sherrill Carlin Work Phone: [facility] 09-25-2024 08:29-0400 Systolic blood pressure 113 mm[Hg] DO Sherrill Lees Work Phone: [facility] 08-28-2024 10:14-0400 Body height 160.02 cm [facility] 08-28-2024 10:14-0400 Body mass index (BMI) [Ratio] 27.3 kg/m2 [facility] 08-28-2024 10:14-0400 Body weight 69.88 kg [facility] 08-28-2024 10:14-0400 Diastolic blood pressure 73 mm[Hg] [facility] 08-28-2024 10:14-0400 Heart rate 85 /min [facility] 08-28-2024 10:14-0400 Respiratory rate 18 /min [facility] 08-28-2024 10:14-0400 SaO2% (BldA) [Mass fraction] 99 % [facility] 08-28-2024 10:14-0400 Systolic blood pressure 111 mm[Hg] [facility] 07-03-2024 09:16-0400 Body height 160.02 cm DO Sherrill Carlin Work Phone: [facility] 07-03-2024 09:16-0400 Body mass index (BMI) [Ratio] 27.6 kg/m2 DO Sherrill Lees Work Phone: [facility] 07-03-2024 09:16-0400 Body weight 70.59 kg DO Sherrill Lees Work Phone: [facility] 06-27-2024 09:58-0400 Body height 160.02 cm DO Sherrill Odenhas Work Phone: [facility] 06-27-2024 09:58-0400 Body mass index (BMI) [Ratio] 27.6 kg/m2 DO Sherrill Lees Work Phone: [facility] 06-27-2024 09:58-0400 Body weight 70.81 kg DO Sherrill Yuhas Work Phone: [facility] 06-27-2024 09:58-0400 Diastolic blood pressure 72 mm[Hg] DO Sherrill Yuhas Work Phone: [facility] 06-27-2024 09:58-0400 Heart rate 90 /min DO Sherrill Yuhas Work Phone: [facility] 06-27-2024 09:58-0400 Respiratory rate 18 /min DO Sherrill Yuhas Work Phone: [facility] 06-27-2024 09:58-0400 SaO2% (BldA) [Mass fraction] 98 % DO Sherrill Yuhas Work Phone: [facility] 06-27-2024 09:58-0400 Systolic blood pressure 126 mm[Hg] DO Sherrill Yuhas Work Phone: [facility] 05-15-2024 09:30-0400 Body height 160.02 cm DO Sherrill Yuhas Work Phone: [facility] 05-15-2024 09:30-0400 Body mass index (BMI) [Ratio] 28.3 kg/m2 DO Sherrill Yuhas Work Phone: [facility] 05-15-2024 09:30-0400 Body weight 72.63 kg DO Sherrill Yuhas Work Phone: [facility] 05-15-2024 09:30-0400 Diastolic blood pressure 71 mm[Hg] DO Sherrill Yuhas Work Phone: [facility] 05-15-2024 09:30-0400 Respiratory rate 18 /min DO Sherrill Yuhas Work Phone: [facility] 05-15-2024 09:30-0400 SaO2% (BldA) [Mass fraction] 98 % DO Sherrill Yuhas Work Phone: [facility] 05-15-2024 09:30-0400 Systolic blood pressure 114 mm[Hg] DO Sherrill Raegan Work Phone: [facility] 04-30-2024 15:01-0400 Body height 160.02 cm [facility] 04-30-2024 15:01-0400 Body mass index (BMI) [Ratio] 29 kg/m2 [facility] 04-30-2024 15:01-0400 Body weight 74.38 kg [facility] 04-30-2024 15:01-0400 Diastolic blood pressure 80 mm[Hg] [facility] 04-30-2024 15:01-0400 Heart rate 98 /min [facility] 04-30-2024 15:01-0400 Respiratory rate 18 /min [facility] 04-30-2024 15:01-0400 SaO2% (BldA) [Mass fraction] 98 % [facility] 04-30-2024 15:01-0400 Systolic blood pressure 127 mm[Hg] [facility] 04-03-2024 10:44-0400 Body height 160.02 cm [facility] 04-03-2024 10:44-0400 Body mass index (BMI) [Ratio] 30.2 kg/m2 [facility] 04-03-2024 10:44-0400 Body weight 77.59 kg [facility] 04-03-2024 10:44-0400 Diastolic blood pressure 67 mm[Hg] [facility] 04-03-2024 10:44-0400 Heart rate 86 /min [facility] 04-03-2024 10:44-0400 Respiratory rate 18 /min [facility] 04-03-2024 10:44-0400 SaO2% (BldA) [Mass fraction] 98 % [facility] 04-03-2024 10:44-0400 Systolic blood pressure 146 mm[Hg] [facility] 01-12-2024 09:40-0500 Body height 165.1 cm [facility]lin [email or web address] 01-12-2024 09:40-0500 Body mass index (BMI) [Ratio] 27.97 kg/m2 Sherrill Carlin DO Work [email or web address] 01-12-2024 09:40-0500 Body temperature 97.81 [degF] Sherrill Carlin DO [facility] 01-12-2024 09:40-0500 Body weight 76.25 kg Sherrill Carlin DO [facility] 01-12-2024 09:40-0500 Diastolic blood pressure 66 mm[Hg] Sherrill Carlin DO Work Phone: [email or web address] 01-12-2024 09:40-0500 Heart rate 91 /min Sherrill Carlin DO Work Phone[email or web address] 01-12-2024 09:40-0500 SaO2% (BldA) [Mass fraction] 97 % Sherrill Carlin DO Work Phone[email or web address] 01-12-2024 09:40-0500 Systolic blood pressure 110 mm[Hg] Sherrill Carlin DO Work Phone: [employer] 09-26-2023 09:00-0400 Body height 165.1 cm Buddy Miranda Other [employer] Other 09-26-2023 09:00-0400 Body mass index (BMI) [Ratio] 28.35 kg/m2 Buddy Miranda Other [employer] Other 09-26-2023 09:00-0400 Body temperature 96.3 [degF] Buddy Miranda Other [employer] Other 09-26-2023 09:00-0400 Body weight 77.29 kg Buddy Miranda Other [employer] Other 09-26-2023 09:00-0400 Diastolic blood pressure 84 mm[Hg] Buddy Miranda Other [employer] Other 09-26-2023 09:00-0400 Respiratory rate 16 /min Buddy Miranda Other [employer] Other 09-26-2023 09:00-0400 Systolic blood pressure 138 mm[Hg] Buddy Miranda Other [employer] Other 09-21-2022 10:00-0400 Body height 165.1 cm Buddy Miranda Other [employer] Other 09-21-2022 10:00-0400 Body mass index (BMI) [Ratio] 26.76 kg/m2 Buddy Miranda Other [employer] Other 09-21-2022 10:00-0400 Body temperature 97.5 [degF] Buddy Miranda Other [employer] Other 09-21-2022 10:00-0400 Body weight 72.94 kg Buddy Miranda Other [employer] Other 09-21-2022 10:00-0400 Diastolic blood pressure 79 mm[Hg] Buddy Miranda Other [employer] Other 09-21-2022 10:00-0400 Respiratory rate 18 /min Buddy Miranda Other [employer] Other 09-21-2022 10:00-0400 SaO2% (BldA) [Mass fraction] 98 % Buddy Miranda Other [employer] [facility] [employer] Other 09-21-2022 10:00-0400 Systolic blood pressure 133 mm[Hg] Buddy Miranda Other [employer] Other Encounters Encounter Date Encounter Type Care Provider Facility Start: 01-29-2025 End: 01-29-2025 ambulatory [facility] Work Phone: Start: 01-29-2025 End: 01-29-2025 Patient encounter procedure [facility] Work Phone: Start: 11-19-2024 End: 11-19-2024 Office outpatient visit 25 minutes Sherrill Carlin Work Phone: [facility] Comment on above: Spinal stenosis of l umbar region with neurogenic claudication (Primary Dx); Osteoarthritis of right patellofemoral joint; Mixed hyperlipidemia Start: 11-19-2024 End: 11-19-2024 ambulatory [facility] Start: 11-14-2024 End: 11-14-2024 Patient encounter procedure [facility] Work Phone: Start: 10-29-2024 End: 10-29-2024 Refill Sherrill Carlin DO Work Phone: [facility] Comment on above: Mixed hyperlipidemia Start: 10-09-2024 End: 10-09-2024 ambulatory Sherrill Carlin DO Work Phone: [facility] Work Phone: Start: 10-09-2024 End: 10-09-2024 Patient encounter procedure Sherrill Carlin DO Work Phone: [facility] Work Phone: Start: 10-01-2024 End: 10-01-2024 Bamboo flowskendy Black APRN-PERINATAL DIRECTOR Work Phone: [facility] Start: 10-01-2024 End: 10-01-2024 Bamboo flowsheet Ghanshyam Salazarer CUSTOMER CARE COORDINATOR-PERINATAL DIRECTOR Work Phone: [facility] Start: 10-01-2024 End: 10-01-2024 Office outpatient visit 15 minutes Ghanshyam Salazarer CUSTOMER CARE COORDINATOR-PERINATAL DIRECTOR Work Phone: [facility] Comment on above: Other atopic dermati tis; Other seborrheic dermatitis; EIC (epidermal inclusion cyst) Start: 10-01-2024 End: 10-01-2024 ambulatory GHANSHYAM A FELTER Not Available Start: 09-25-2024 End: 09-25-2024 ambulatory DO Sherrill Carlin Work Phone: [facility] Work Phone: Start: 09-25-2024 End: 09-25-2024 Patient encounter procedure DO Sherrill Carlin Work Phone: [facility] Work Phone: Start: 09-21-2024 End: 09-21-2024 Patient encounter procedure DO Sherrill Carlin Work Phone: [facility] Work Phone: Start: 09-21-2024 End: 09-21-2024 ambulatory Sherrill Carlin Facility:[facility] Start: 09-10-2024 End: 09-10-2024 ambulatory SHEFALI BAILEY [facility] Comment on above: 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 ([facility]) Start: 09-10-2024 End: 09-10-2024 Office outpatient visit 15 minutes Shefali Bailey MD Work Phone: [facility] Comment on above: 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 ([facility]) (Primary Dx); Anophthalmos of right eye; Primary open angle glaucoma of left eye, indeterminate stage Start: 09-10-2024 End: 09-10-2024 ambulatory SHEFALI N [facility] Start: 08-28-2024 End: 08-28-2024 ambulatory [facility] Work Phone: Start: 08-28-2024 End: 08-28-2024 Patient encounter procedure [facility] Work Phone: Start: 08-22-2024 End: 08-22-2024 Refill Sherrill Carlin DO Work Phone: [facility] - [facility] Medicine Comment on above: Mixed hyperlipidemia Start: 07-03-2024 End: 07-03-2024 ambulatory DO Sherrill Carlin Work Phone: [facility] Work Phone: Start: 07-03-2024 End: 07-03-2024 Patient encounter procedure DO Sherrill Carlin Work Phone: [facility] Work Phone: Start: 06-27-2024 End: 06-27-2024 ambulatory DO Sherrill Carlin Work Phone: [facility] Work Phone: Start: 06-27-2024 End: 06-27-2024 Patient encounter procedure DO Sherrill Carlin Work Phone: [facility] Work Phone: Start: 05-21-2024 End: 05-21-2024 Refill Sena Gregg CMA [facility] Comment on above: Diabetic peripheral neuropathy ([facility]) Start: 05-15-2024 End: 05-15-2024 ambulatory DO Sherrill Carlin Work Phone: [facility] Work Phone: Start: 05-15-2024 End: 05-15-2024 Patient encounter procedure DO Sherrill Carlin Work Phone: [facility] Work Phone: Start: 05-14-2024 End: 05-14-2024 Patient encounter procedure DO Sherrill Carlin Work Phone: [facility] Work Phone: Start: 05-14-2024 End: 05-14-2024 ambulatory DO Sherrill Carlin Work Phone: [facility] Work Phone: Start: 05-02-2024 End: 05-02-2024 ambulatory [facility] Work Phone: Start: 05-02-2024 End: 05-02-2024 Patient encounter procedure [facility] Work Phone: Start: 05-01-2024 End: 05-10-2024 Telephone encounter Sherrill Carlin DO Work Phone: [facility] Start: 04-30-2024 End: 04-30-2024 ambulatory [facility] Work Phone: Start: 04-30-2024 End: 04-30-2024 Patient encounter procedure [facility] Work Phone: Start: 04-25-2024 End: 04-25-2024 ambulatory [facility] Work Phone: Start: 04-25-2024 End: 04-25-2024 Patient encounter procedure [facility] Work Phone: Start: 04-12-2024 End: 04-12-2024 Patient encounter procedure [facility] Work Phone: Start: 04-11-2024 Non-patient / Non-visit [facility] Work Phone: Start: 04-03-2024 End: 04-03-2024 ambulatory [facility] Work Phone: Start: 04-03-2024 End: 04-03-2024 Patient encounter procedure [facility] Work Phone: Start: 03-14-2024 End: 03-14-2024 Refill Sherrill Carlin DO Work Phone: [facility] Comment on above: Mixed hyperlipidemia Start: 02-28-2024 Refill Sherrill Carlin D O Work Phone: [facility] Comment on above: Diabetic peripheral neuropathy ([facility]) Start: 02-09-2024 End: 02-09-2024 Office outpatient visit 25 minutes Sherrill Thakur MD Work Phone: [facility] Comment on above: 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, indeterminate stage (Primary Dx); Pseudophakia of left eye; 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 ([facility]); Anophthalmos of right eye Start: 02-09-2024 End: 02-09-2024 ambulatory SHERRILL THAKUR [facility] Comment on above: 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, indeterminate stage Start: 01-30-2024 Telephone encounter Carey Daniels MA [facility] Comment on above: Preventative Screeni ng Start: 01-12-2024 Non-patient / Non-visit [facility] Work Phone: Start: 01-12-2024 End: 01-12-2024 Office outpatient visit 25 minutes Sherrill Carlin DO Work Phone: [facility] Comment on above: 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 ([facility]) (Primary Dx); Mixed hyperlipidemia; Stage 3a chronic kidney disease ([facility]) Start: 01-12-2024 End: 01-13-2024 ambulatory SHERRILL CARLIN [facility] Start: 01-11-2024 Refill Juarez G Staci hawkins DO Work Phone: [facility] Comment on above: Chronic hyperkalemia Start: 12-13-2023 Refill Sherrill Vidal O Work Phone: [facility] Comment on above: Diabetic peripheral neuropathy ([facility]) Start: 09-26-2023 End: 09-26-2023 ambulatory Buddy Miranda Other [employer] Other Start: 09-26-2023 Office outpatient vi sit 25 minutes Buddy Miranda [facility] Start: 09-22-2023 End: 09-22-2023 ambulatory DO Sherrill Carlin Work Phone: [facility] Work Phone: Start: 09-22-2023 End: 09-22-2023 Patient encounter procedure DO Sherrill Carlin Work Phone: [facility] Work Phone: Start: 03-17-2023 End: 03-18-[address] SHERRILL CARLIN Facility: Start: 09-21-2022 End: 09-21-2022 ambulatory Buddy Miranda Other [employer] Other Start: 09-21-2022 Office outpatient vi sit 15 minutes Buddy Miranda [facility] Start: 09-20-2022 End: 09-20-2022 ambulatory DO Sherrill Carlin Work Phone: [facility] Work Phone: Start: 09-20-2022 End: 09-20-2022 Patient encounter procedure DO Sherrill Carlin Work Phone: [facility] Start: 07-12-2022 End: 07-12-2022 Patient encounter procedure DO Sherrill Carlin Work Phone: [facility] Start: 01-01-2021 End: 01-01-2021 Patient encounter procedure Sherrill Carlin [facility] Procedures Date Procedure Procedure Detail Performing Clinician Start: 09-21-2024 Bacteria identified in Urine by Culture DO Sherrill Carlin Work Phone: Start: 09-21-2024 Urine culture Sherrill gutierrez DO Work Phone: Start: 09-10-2024 Computerized ophthal tali imaging retina Shefali Bailey MD Work Phone: Start: 09-10-2024 Diabetic retinal eye exam Shefali Bailey MD Work Phone: Start: 02-09-2024 End: 02-09-2024 Visual field xm uni/bi w/interp extended exam Sherrill Thakur MD Work Phone: Start: 02-09-2024 Diabetic retinal eye exam Sherrill Thakur MD Work Phone: Start: 01-12-2024 Adult depression scr eening assessment Sherrill Carlin DO Work Phone: Start: 01-12-2024 Microalbumin [Mass/v olume] in Urine by Test strip Sherrill Carlin DO Work Phone: Start: 09-05-2023 Diabetic retinal eye exam Sherrill Carlin DO Work Phone: Start: 08-23-2023 Adult depression scr eening assessment Sherrill Carlin DO Work Phone: Start: 03-03-2023 Microalbumin [Mass/v olume] in Urine by Test strip Sherrill Carlin DO Work Phone: Plan of Treatment Date Care Activity Detail Author Start: 01-03-2030 DTaP,Tdap and Td Vaccines (2 - Td or Tdap) DTaP,Tdap and Td Vaccines (2 - Td or Tdap) [facility] Start: 06-07-2027 Screening for malign ant neoplasm of colon [facility] Start: 11-19-2025 Adult BMI Screening Adult BMI Screen ing [facility] Start: 11-19-2025 Tobacco Screening Tobacco Screening [facility] Start: 10-01-2025 End: 10-01-2025 Patient encounter procedure 10/01/2025 9:50 AM EST Office Visit [facility] [address] [place] [address] Ghanshyam Black, CUSTOMER CARE COORDINATOR-PERINATAL DIRECTOR [address] [place] [address] [facility] Start: 09-16-2025 End: 09-16-2025 Patient encounter procedure 09/16/2025 8:00 AM EDT Office Visit [facility] [address] [place] [id number] Shefali Bailey MD [address] [place], [place] [id number] [phone] [facility] Start: 09-10-2025 Glaucoma screening Diabetic Op hthalmology Exam [facility] Start: 09-10-2025 Tobacco Screening Tobacco Screening [facility] Start: 02-20-2025 End: 02-20-2025 ambulatory 02/20/2025 3:20 PM EDT Ophthalmology Imaging [facility] [address] [place] [address] [facility] Start: 02-20-2025 End: 02-20-2025 Patient encounter procedure 02/20/2025 3:20 PM EDT Office Visit [facility] [address] [place] [address] Sherrill Thakur MD [address] [place] [address] [facility] Start: 02-08-2025 Glaucoma screening Diabetic Op [facility]thalmology Exam [facility] [facility] Start: 02-08-2025 Tobacco Screening Tobacco Screening [facility] Start: 01-12-2025 Adult BMI Screening Adult BMI Screen ing [facility] Start: 01-12-2025 Depression Screening Depression Scre ening [facility] Start: 01-12-2025 Tobacco Screening Tobacco Screening [facility] Start: 01-12-2025 Urine screening for protein Urine Microalbumin [facility] Start: 12-13-2024 Statin Use: Diabetic Statin Use: Krista lilian [facility] Start: 11-14-2024 End: 11-14-2024 Patient encounter procedure 11/14/2024 2:00 PM EST Office Visit [facility] [address] [place] [address] Sherrill Carlin DO [address] [facility] [place] [address] [facility] Start: 10-01-2024 End: 10-01-2024 Patient encounter procedure 10/01/2024 9:50 AM EST Office Visit [facility] [address] [place] [address] Ghanshyam Black APRN-PERINATAL DIRECTOR [address] [place] [address] Arrived [facility] Comment on above: Arrived Start: 09-10-2024 End: 09-10-2024 Patient encounter procedure 09/10/2024 3:30 PM EDT Office Visit [facility] [address] [place] [phone] Shefali Bailey MD [address] [place], [place] [id number] [facility] Start: 09-05-2024 Glaucoma screening Diabetic Op hthalmology Exam [facility] Start: 09-05-2024 Tobacco Screening Tobacco Screening [facility] Start: 08-23-2024 Adult BMI Screening Adult BMI Screen ing [facility] Start: 08-23-2024 Depression Screening Depression Scre ening [facility] Start: 07-29-2024 COVID-19 Vaccine ( season) COVID-19 Vaccine ( season) [facility] Start: 07-29-2024 Influenza vaccination [facility] Start: 05-14-2024 Insulin C-peptide measurement [facility] Start: 03-03-2024 Diabetic foot examination Diabetic Foot Exam [facility] Start: 03-03-2024 Urine screening for protein Urine Microalbumin [facility] Start: 02-09-2024 End: 02-09-2024 Patient encounter procedure 02/09/2024 8:10 AM EDT Office Visit [facility] [address] [place] [address] Sherrill Thakur MD [address] [place] [address] [facility] Start: 02-09-2024 End: 02-09-2024 ambulatory 02/09/2024 8:00 AM EDT Ophthalmology Imaging [facility] [address] [place] [phone] [facility] Start: 01-12-2024 End: 01-12-2024 Patient encounter procedure 01/12/2024 9:20 AM EST Office Visit [facility] [address] [place] [address] Sherrill Carlin, [address] [place] [address] [facility] Start: 07-29-2023 COVID-19 Vaccine ( season) COVID-19 Vaccine ( season) [facility] Start: 07-29-2023 Influenza vaccination Influenza Vacc ine [facility] Start: 12-08-2021 Screening for malign ant neoplasm of colon [facility] Start: 2008 Screening for malign ant neoplasm of breast Mammogram [facility] Start: 1998 Screening for malign ant neoplasm of cervix [facility] Start: 1989 Screening for malign ant neoplasm of cervix Pap Smear [facility] Start: 1986 Adult BMI Follow Up Plan Adult BMI Follow Up Plan [facility] Start: 1968 Screening for malign ant neoplasm of colon [facility] Comprehensive metabo lic 2000 panel - Serum or Plasma [facility] Insulin C-peptide measurement [facility] Patient Education Diabetes and diet [facility] Work Phone: [facility] Immunizations Immunization Date Immunization Notes Care Provider Fa orin 11-09-2023 influenza, injectabl e, quadrivalent, preservative free Sherrill Odenhas DO Work Phone: [facility] 11-09-2023 influenza virus vacc ine, unspecified formulation Sherrill Yuhas DO Work Phone: [facility] 09-23-2022 zoster vaccine recombinant Sherrill Yuhas DO Work Phone: [facility] 07-14-2022 zoster vaccine recombinant Sherrill Yuhas DO Work Phone: [facility] 01-03-2020 tetanus toxoid, redu shane diphtheria toxoid, and acellular pertussis vaccine, adsorbed Sherrill Yuhas DO Work Phone: [facility] 10-04-2019 Influenza, injectabl e, Madin [place] Canine Kidney, quadrivalent with preservative Sherrill Yuhas DO Work Phone: [facility] 10-04-2019 influenza virus vacc ine, unspecified formulation Sherrill Yuhas DO Work Phone: [facility] 10-24-2018 Influenza, injectabl e, Madin [place] Canine Kidney, preservative free, quadrivalent Sherrill Yuhas DO Work Phone: [facility] 10-24-2018 pneumococcal polysaccharide vaccine, 23 valent Sherrill Yuhas DO Work Phone: [facility] 10-12-2017 Influenza, injectabl e, Madin Vikki Canine Kidney, preservative free, quadrivalent Sherrill Yuhas DO Work Phone: [facility] 10-12-2017 pneumococcal conjuga te vaccine, 13 valent Sherrill Carlin DO Work Phone: [facility] 11-10-2016 influenza, seasonal, injectable, preservative free Sherrill Lees DO Work Phone: [facility] 10-28-2015 influenza, seasonal, injectable, preservative free Sherrill Lees DO Work Phone: [facility] 08-07-2014 influenza, seasonal, injectable Sherrill Lees DO Work Phone: [facility] Payers Date Payer Category Payer Self-pay [id number] 2023 Private Health Insurance [employer] [id number] 2021 Commercial Managed are - [employer] Member Subscriber Plan / Payer (Effective 2021-Present) Name: Yuridia Dahl Relation to Subscriber: Spouse Name: JOSEPH DAHL Date of : 1965 (Home) Address: [address] [address] Payer ID: Not on file Type: Not on file Address: [place] [id number] 2021 Unknown [employer] M ROSEMARY RAINEY [id number] 2021-Present [phone] [address] [place] [address] [id number] 1968 Unknown [id number] [id number]. 593 1968 Unknown [id number] 2.16.840.1.949634.3.579.2. 1286 1968 Unknown [id number] 2.16.840.1.404203.3.579.2. 1259 1968 Unknown [id number] 2.16.840.1.409400.3.579.2. 1286 1968 Unknown [id number] [id number]. 1286 1968 Unknown [id number] 2.16.840.1.925245.3.579.2. 1286 1968 Unknown [id number] 2.16.840.1.247852.3.579.2. 1286 1968 Unknown [id number] 2.16.840.1.052693.3.579.2. 1286 1968 Unknown [id number] 2.16.840.1.807621.3.579.2. 1286 1968 Unknown [id number] 2.16.840.1.603510.3.579.2. 1286 1968 Unknown [id number] 2.16.840.1.657853.3.579.2. 1286 1959 Unknown [id number] Unknown [id number] Unknown [id number] [id number]. 531 Unknown [id number]. 531 Social History Date Type Detail Facility Tobacco smoking stat us NHIS Unknown if ever smoked [facility] Start: 1970 Sex Assigned At Female [facility] Start: 01-08-2021 End: 09-29-2023 Sex Assigned At [facility] [employer] [facility] Start: 09-14-2018 End: 04-30-2024 Tobacco smoking status NHIS Never smoked tobacco (finding) [facility] Start: 03-03-2023 End: 09-29-2023 Tobacco use and exposure Smokeless tobacco non-user [facility] Start: 09-29-2023 End: 09-10-2024 Alcoholic beverage intake Current drinker of alcohol (finding) [facility] Start: 01-08-2021 End: 09-29-2023 History of Social function [facility] Start: 09-16-2023 Alcohol Comment 3 or 4 drinks on a typical day/ 2 to 4 times a month [facility] Start: 1970 Sex assigned at Not on file P [facility] Start: 10-09-2024 End: 01-29-2025 Sex Female (finding) [facility] Adolescent depressio n screening assessment 0 [facility] Start: 03-03-2023 Alcohol Comment socially [facility] Goals Date Patient Goal Desired Activity /State Clinical Notes 09-21-2022 to 11-19-2024 Sherrill Carlin, DO - 11/19/2024 2:00 PM EST Note Date & Type Note Facility 11-19-2024 History of Present illness Narrative IM PROGRESS NOTE Patient - Yuridia Dahl Age - 54 y.o. - 1970 ASSESSMENT & PLAN 1. Spinal stenosis of lumbar region with neurogenic claudication (Primary) -ongoing problem which is worsening -I reviewed the results of previous plain lumbar x-ray with the patient. There is moderate degenerative changes throughout the lumbar spine. -will give a trial of physical therapy for core strengthening. -really no medication treatments available because of her CKD, in his already taking gabapentin plus pregabalin -if attempts at therapy do not work, needs referral to pain management - Ambulatory referral to Physical Therapy; Future 2. Osteoarthritis of right patellofemoral joint -I reviewed the results of the right knee x-ray from 1 year ago with the patient -has moderate OA in the patellofemoral joint -start ice to the knee 30-40 minutes 4 times daily -quadricep strengthening exercises to be instructed at PT -if not improving with conservative treatment, due to her inability to utilize NSAIDs because of CKD, will need ortho referral for injections - Ambulatory referral to Physical Therapy; Future 3. Mixed hyperlipidemia -most recent LDL 76 mg/dL in July -I reviewed the goals of treatment with patient, which would be 70 mg/dL -this is improved from earlier in the year -not currently taking her statin -may need trial of Nexletol Subjective 54-year-old female presents for recheck on several medical conditions including: -low back pain. Has been having problems intermittently for the past 18 months. Initially was seen around that time, had x-rays obtained which showed degenerative changes throughout the lumbar spine. Had physical therapy ordered, but did not complete the therapy as ordered. Has been treating symptomatically with heating pad and occasional Tylenol. -she feels that it is gradually getting worse, and is exacerbated by sitting, standing or inactivity for longer than several hours. -she is on gabapentin as well as pregabalin for diabetic peripheral neuropathy. -is also reporting new pain in her right knee. Feels like it is on the front of the knee. Is worse when she tries to fully straighten her leg, or when she fully flexes it. There is no instability or swelling or warmth. There has been no injury to the area. This also has been present for over a year, but is getting worse. She did have an x-ray a little over a year ago which showed moderate to severe patellofemoral joint OA A review of systems was negative except for the following: General: weight loss Endocrine: has type 1 DM and utilizes an insulin pump. Blood sugars have been improved. Musculoskeletal: gait disturbance, joint stiffness, and pain in back - bilateral, lower, With radiation to buttocks and legs bilaterally intermittently and knee - right. Exam BP 110/70 (BP Site: Left Arm, BP Postition: Sitting) Pulse 84 Temp 36.4 C (97.6 F) (Oral) Resp 18 Ht 165.1 cm (5' 5 ) Wt 69.7 kg (153 lb 9.6 oz) SpO2 98% BMI 25.56 kg/m Physical Exam Vitals reviewed. Constitutional: General: She is not in acute distress. Appearance: She is well-developed. She is not toxic-appearing. Comments: Overweight HENT: Head: Normocephalic and atraumatic. Right Ear: External ear normal. Left Ear: External ear normal. Nose: Nose normal. Eyes: General: No scleral icterus. Conjunctiva/sclera: Conjunctivae normal. Comments: Glass right eye. Neck: Vascular: No carotid bruit. Cardiovascular: Rate and Rhythm: Normal rate and regular rhythm. Heart sounds: No murmur heard. No gallop. Pulmonary: Effort: Pulmonary effort is normal. Breath sounds: No wheezing or rales. Abdominal: Palpations: Abdomen is soft. Musculoskeletal: General: Tenderness (Bilateral paraspinal muscles L4, L5, PSIS, SI joints and right sciatic notch) present. Right lower leg: No edema. Left lower leg: No edema. Comments: Right knee: Mar negative. Drawer sign negative. Crepitance in the patellofemoral groove with movement of the patella. Pain in patellar tendon with assisted flexion of the right quadricep Full lumbar flexion.. Limited lumbar extension with discomfort in the low back. Lymphadenopathy: Cervical: No cervical adenopathy. Skin: General: Skin is warm and dry. Coloration: Skin is not jaundiced. Findings: No bruising. Neurological: Mental Status: She is alert and oriented to person, place, and time. Sensory: Sensory deficit (Monofilament and vibratory testing abnormal on the toes, feet and ankles bilaterally. Partial loss on the right knee, partial loss on the left knee.) present. Motor: No weakness. Deep Tendon Reflexes: Reflexes are normal and symmetric. Reflexes normal (Patellar tendon 2+/4 bilateral. Achilles tendon 2+/4 bilateral.). Psychiatric: Mood and Affect: Mood normal. Behavior: Behavior normal. Meds Current Outpatient Medications: atorvastatin (LIPITOR) 80 mg tablet, Take 1 tablet (80 mg total) by mouth daily after dinner., Disp: 90 tablet, Rfl: 0 biotin 1 mg capsule, Take by mouth., Disp: , Rfl: cetirizine (ZyrTEC) 10 mg tablet, Take by mouth., Disp: , Rfl: clobetasoL (TEMOVATE) 0.05 % cream, clobetasol 0.05 % topical cream, Disp: , Rfl: dorzolamide-timoloL (COSOPT) 22.3-6.8 mg/mL ophthalmic solution, Administer 1 drop into the left eye every 12 (twelve) hours., Disp: 30 mL, Rfl: 3 DUPIXENT SYRINGE 300 mg/2 mL syringe SUBQ injection, , Disp: , Rfl: ergocalciferol (DRISDOL) 1,250 mcg (50,000 unit) capsule, Vitamin D2 1,250 mcg (50,000 unit) capsule, Disp: , Rfl: fluocinonide (LIDEX) 0.05 % external solution, APPLY TO SCALP 1 OR 2 TIMES DAILY NEEDED FOR ITCHING. AVOID FACE AND NECK, Disp: , Rfl: gabapentin (NEURONTIN) 300 mg capsule, TAKE 1 CAPSULE DAILY, Disp: 90 capsule, Rfl: 3 HumaLOG U-100 Insulin 100 unit/mL injection, USE 60 UNITS DAILY VIA INSULIN PUMP, Disp: 90 mL, Rfl: 3 ketoconazole (NIZORAL) 2 % shampoo, Apply 1 Application topically once a week., Disp: , Rfl: bpgcx-[id number]-9-[id number]-pge-[id number] (KRILL OIL) 682-08-37-50 mg capsule, Take by mouth., Disp: , Rfl: pregabalin (LYRICA) 100 mg capsule, TAKE 1 CAPSULE THREE TIMES A DAY, Disp: 90 capsule, Rfl: 2 Lab Results No visits with results within 1 Month(s) from this visit. Latest known visit with results is: Hospital Outpatient Visit on 01/12/2024 Component Date Value Ref Range Status Microalbumin urine 01/12/2024 2.0 (H) 0.0 - 1.9 mg/dL Final Urine creat 01/12/2024 45.94 mg/dL Final Alb/creat ratio 01/12/2024 43.5 (H) 0.0 - 30.0 mg/g creat Final Cholesterol 01/12/2024 186 150 - 200 mg/dL Final Triglycerides 01/12/2024 80 27 - 150 mg/dL Final HDL Cholesterol 01/12/2024 76 >39 mg/dL Final VLDL 01/12/2024 16 0 - 30 mg/dL Final LDL (calc) 01/12/2024 94 <130 mg/dL Final Cholesterol:HDL Ratio 01/12/2024 2.4 1.0 - 5.0 Final Sodium 01/12/2024 140 134 - 146 mmol/L Final Potassium, Bld 01/12/2024 4.7 3.5 - 5.0 mmol/L Final Chloride 01/12/2024 102 98 - 109 mmol/L Final CO2 01/12/2024 32 22 - 32 mmol/L Final Anion gap 01/12/2024 6 5 - 15 mmol/L Final BUN 01/12/2024 20 5 - 23 mg/dL Final Creatinine 01/12/2024 1.13 (H) 0.40 - 1.00 mg/dL Final Glucose 01/12/2024 144 (H) 65 - 99 mg/dL Final Calcium 01/12/2024 9.6 8.5 - 10.5 mg/dL Final Total Protein 01/12/2024 7.1 6.0 - 8.0 g/dL Final Albumin 01/12/2024 3.9 3.2 - 5.3 g/dL Final Alkaline Phosphatase 01/12/2024 88 39 - 130 U/L Final AST 01/12/2024 22 0 - 41 U/L Final ALT 01/12/2024 18 0 - 31 U/L Final Total bilirubin 01/12/2024 0.5 0.3 - 1.2 mg/dL Final eGFR (CKD-EPI)non-race dependent 01/12/2024 57 (L) >59 ml/min/1.73sq.m Final Hemoglobin A1C 01/12/2024 7.9 (H) 4.4 - 5.6 % Final Average glucose 01/12/2024 180 mg/dL Final Other Testing No results found. Sherrill Cariln DO., [facility] Office: [phone] documented in this encounter [facility] 10-09-2024 Evaluation note Authored January 29, 2025 1:43pm Highest weight: 170 lbs. She is down 15.5 lbs . Start weight: 171.1 lbs. She is down 16.5 lbs. today with a weight of 154.5 lbs. she is up 1.1bs. since last visit was 10/09/2024. Starting Date: 04-03-2024. 1. Abnormal weight gain 2. Obesity-Significant improvements after starting our program and with a 10% weight loss. She was initially taking a GLP-1 agonist to help with appetite control and weight management and did fine on the 0.3 mg dose, but then developed nausea on the 0.6 mg dose and we are trying without medication. She must closely her type 1 diabetes with our diabetic department and seeing her diabetic compatibility test engineer Mariama. And her A1c is dropped from 7.9 down to 6.5 with less insulin and no increase in lows but is now back up to 6.9. She is now following the plate method and has been restricting her even complex starches but we will slowly add back and monitor with her CGM following the plate method. She must be careful with activity/exercise that she seems to have some gait issues with neuropathy. She is to gradually try to increase her exercise frequency and is considering slowly adding strength training. She will continue to work on good sleep habits. She should try to keep binge food/trigger foods out of the house. She understands the risk of skipping breakfast and lunch and eating all her dinners out. She understands risk of nighttime eating and being a night owl. She understands the risk of drinking her calories she notes she did drink alcohol 1 to 3 days a week 2-4 drinks before starting the program. She should minimize. She has an insulin pump and CGM and notes only rare mild hypoglycemia. She concerned about abdominal weight gain and feels she is having effects of weighing more. 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 Before starting the program, she was a huge closet eater and that if she is alone which she would often overeat. She feels her biggest treat is salty popcorn but also likes salty nuts and chips. She notes she is not a sweet person. She does not have enough frequency to be considered that binge eating disorder. She notes constant food thoughts and increased appetite. 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 She will continue care with our diabetic department. She does have some GI issues of some chronic constipation which she is working on and occasional right upper quadrant discomfort even though she has had cholecystectomy. Her son required bariatric surgery for his weight. 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 Behavioral: The patient's previous eating habits prior to starting our program poor Before starting the program the biggest reasons for weight struggles include binge eating, boredom eater, constant food thoughts/ cravings, eat most dinners out, family weight issues, health issues, lack of activity, lack of exercise, late night snacking, medications I am or have taken, poor meal /snack planning, skip breakfast, skip lunch, unhealthy diet, unhealthy snacks. Exercise before starting the program: Yes 1-3 x week, treadmill 5-25 minutes, just getting started.The patient will treat with long-term lifestyle changes of improved nutrition, increased exercise and activity, stress reduction, adequate sleep and behavioral modification versus short-term dieting. Her Anderson was 8 with starting the program. She notes she is only an occasional snorer. She denies any known cardiac or lung issues but does note she gets some [place]. I recommend follow-up with her PCP for cardiac evaluation/clearance. 3. Type 1 diabetes mellitus-Improved with A1c dropping from 7.9 now down to 6.5 with our program. She will continue to treat with better diet/healthy lifestyle change and continued follow-up with our diabetic nurse practitioner/diabetic education for pump and CGM management. 4. Hypercholesterolemia-LDL almost at goal now at 76. She has normal triglycerides and a good HDL. She should continue to treat with decreasing the bad fats, added fats, increase activity and exercise and achieve long-term weight loss. Controlled with high-dose statin. Her triglycerides and HDL are good. 5. CKD 3 with positive microalbuminuria 6. Diabetic neuropathy 7. History of chronic constipation 8. Status post cholecystectomy Follow up with me in 12 weeks. New labs needed: Up-to-date. She should continue regular lab work with her PCP and with our diabetic nurse practitioner for type 1 diabetes. [facility] Work Phone: [phone]) 997-518411-04-2024 History of Present illness Narrative* Ghanshyam Musa Black, CUSTOMER CARE COORDINATOR-PERINATAL DIRECTOR - 10/01/2024 9:50 AM EST Follow-Up: Diagnosis: Atopic dermatitis. Location: Face, abdomen, arms. Last visit: 1 year ago Status: Clear for the most part, mild flare around right eye Symptoms: No visible flares today. Current treatment: Dupixent 300 mg/2mL every other week (approved until 12/30/2023), Protopic ointment 0.1% (not using at all, hasn't needed) Follow up Diagnosis: Seborrheic dermatitis Location: Scalp Last visit: 1 year ago Symptoms: itchy, flaky Status: Controlled with treatment Current treatment: Ketoconazole shampoo twice a week and Fluocinonide solution a few times a week Lesions: Location: right cheek Duration: 8 months Quality: denies pain, denies itch Associated symptoms: non-healing Treatments: none Established patient All pertinent medical history, medications, and allergies were reviewed. General Exam: alert , oriented to person, place, and time , normal affect, well appearing A focused exam completed based on patient reported problems, see below: 1. Other atopic dermatitis Clear today, well controlled on current treatment. BSA 0% on Dupixent Continue Dupixent 300 mg every other week as prescribed. Dupixent My Way form signed today. Encouraged daily moisturizing and gentle cleansers to prevent flares. Notify the office if condition flaresor worsens despite treatment. Related Medications Dupixent 300 MG/2ML injection Inject 1 Syringe (300 mg) under the skin every 14 (fourteen) days. 2. Other seborrheic dermatitis Scalp Mild erythema and scale. Continue Ketoconazole shampoo 2-3 x/week and Fluocinonide solution every day prn for itching. May use any other dandruff shampoo desired in between. Reviewed proper use of topical steroid. Notify theoffice if condition flares or worsens despite treatment. Related Medications ketoconazole (NIZOral) 2 % shampoo LATHER ON WET HAIR AND LEAVE ON FOR 5 MINUTES THEN RINSE. USE 2 TO 3 TIMES A WEEK fluocinonide (Lidex) 0.05 % external solution APPLY TO SCALP 1 OR 2 TIMES DAILY NEEDED FOR ITCHING. AVOID FACE AND NECK 3. EIC (epidermal inclusion cyst) Right Malar Cheek erythematous, subcutaneous nodule Patient was counseled regarding cysts. Although benign, cysts often slowly enlarge and can occasionally become inflamed. Discussed the only way to definitively diagnose the lesion would be to have itremoved and tested. Discussed treatment options including observation vs. excision. Patient elected for excision. Reviewed procedure and what to expect. Patient informed that the office will contact them to schedule a 30 minute excision once an estimate of their co-pay is determined Next Visit: 1 year, follow up [id number] NoteQuality was good. Progression has been stable. Findings include irregular foveal surface contour. Plan: observe & monitor.MANUALLY TRANSCRIBED RESULTS 09-10-2024 NoteQuality was good. Progression has been stable. Findings include irregular foveal surface contour. Plan: observe & monitor.MANUALLY TRANSCRIBED RESULTS 09-10-2024 History of Present illness Narrative* Shefali Bailey MD - 09/10/2024 3:30 PM EDT The patient has stable, treated proliferative diabetic retinopathy in the left eye. -Stressed Blood Sugar/Blood Pressure control and close follow-up with PCP/Mailroom Supervisor -Advised of importance in BS/BP control in reducing risk of vision loss -Advised of importance of regular fundus exams AT PRN Return to Dr. Bailey: 1 year OCT OU Scribe Statement: Scribed for and in the presence of Shefali Bailey MD by [address]ij[address], COA I, Shefali Bailey MD personally performed the services described in the documentation, as scribed by my COA in my presence, and it is both accurate and complete. [facility]* Author [facility] Authored August 28, 2024 9: 57am Highest weight: 170 lbs. She is down 15.9 lbs . Start weight: 171.1 lbs. She is down 17.0 lbs. today with a weight of 154.1 lbs. she is down 2.1 lbs. since last visit was . Starting Date: 04-03-2024. 1. Abnormal weight gain 2. Obesity-Significant improvements in starting our program and initially taking a GLP-1 agonist to help with appetite control and weight management, but then developed nausea on the 0.6 mg dose and is still trying without medication. She could try the medication again if needed as she had no problems on the starting dose and she feels it was more the caffeine that caused the nausea. She is managing her type 1 diabetes with our diabetic department and seeing her diabetic compatibility test engineer Mariama. And her A1c is dropped from 7.9 down to 6.5 with less insulin and no increase in lows. She is now following the plate method and has been restricting her even complex starches but we will add back and monitor with her CGM following the plate method. She is to gradually try to increase her exercise frequency and is considering slowly adding strength training. She will continue to work on good sleep habits. She should try to keep binge food/trigger foods out of the house. She understands the risk of skipping breakfast and lunch and eating all her dinners out. She understands risk of nighttime eating and being a night owl. She understands the risk of drinking her calories she notes she drinks alcohol 1 to 3 days a week 2-4 drinks. She has an insulin pump and CGM and notes only rare mild hypoglycemia. She concerned about abdominal weight gain and feels she is having effects of weighing more. 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 Before starting the program, she was a huge closet eater and that if she is alone which she would often overeat. She feels her biggest treat is salty popcorn but also likes salty nuts and chips. She notes she is not a sweet person. She does not have enough frequency to be considered that binge eating disorder. She notes constant food thoughts and increased appetite. 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 She will continue care with our diabetic department. She does have some GI issues of some chronic constipation which she is working on and occasional right upper quadrant discomfort even though she has had cholecystectomy. Her son required bariatric surgery for his weight. 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 Behavioral: The patient's previous eating habits prior to starting our program poor Before starting the program the biggest reasons for weight struggles include binge eating, boredom eater, constant food thoughts/ cravings, eat most dinners out, family weight issues, health issues, lack of activity, lack of exercise, late night snacking, medications I am or have taken, poor meal /snack planning, skip breakfast, skip lunch, unhealthy diet, unhealthy snacks. Exercise before starting the program: Yes 1-3 x week, treadmill 5-25 minutes, just getting started.The patient will treat with long-term lifestyle changes of improved nutrition, increased exercise and activity, stress reduction, adequate sleep and behavioral modification versus short-term dieting. Her Anderson was 8 with starting the program. She notes she is only an occasional snorer. She denies any known cardiac or lung issues but does note she gets some OH. I recommend follow-up with her PCP for cardiac evaluation/clearance. 3. Type 1 diabetes mellitus-Improved with A1c dropping from 7.9 now down to 6.5 with our program. She will continue to treat with better diet/healthy lifestyle change and continued follow-up with our diabetic nurse practitioner/diabetic education for pump and CGM management. 4. Hypercholesterolemia-LDL at goal now. She has normal triglycerides and a good HDL. She will continue to treat with decreasing the bad fats, added fats, increase activity and exercise and achieve long-term weight loss. Controlled with high-dose statin. Her triglycerides and HDL are good. 5. CKD 3 with positive microalbuminuria 6. Diabetic neuropathy 7. History of chronic constipation 8. Status post cholecystectomy Follow up with me in 8 weeks. New labs needed: Up-to-date. She should continue regular lab work with her PCP and with our diabetic nurse practitioner for type 1 diabetes. Author Katelyn [facility] Authored October 09, 2024 12:04pm Highest weight: 170 lbs. She is down 16.6 lbs . Start weight: 171.1 lbs. She is down 17.7 lbs. today with a weight of 153.4 lbs. she is down 0.7lbs. since last visit was 08/28/2024. Starting Date: 04-03-2024. 1. Abnormal weight gain 2. Obesity-Significant improvements in starting our program and initially taking a GLP-1 agonist to help with appetite control and weight management, but then developed nausea on the 0.6 mg dose and is still trying without medication. She could try the medication again if needed as she had no problems on the starting dose and she feels it was more the caffeine that caused the nausea. She is managing her type 1 diabetes with our diabetic department and seeing her diabetic compatibility test engineer Mariama. And her A1c is dropped from 7.9 down to 6.5 with less insulin and no increase in lows. She is now following the plate method and has been restricting her even complex starches but we will add back and monitor with her CGM following the plate method. She is to gradually try to increase her exercise frequency and is considering slowly adding strength training. She will continue to work on good sleep habits. She should try to keep binge food/trigger foods out of the house. She understands the risk of skipping breakfast and lunch and eating all her dinners out. She understands risk of nighttime eating and being a night owl. She understands the risk of drinking her calories she notes she drinks alcohol 1 to 3 days a week 2-4 drinks. She has an insulin pump and CGM and notes only rare mild hypoglycemia. She concerned about abdominal weight gain and feels she is having effects of weighing more. 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 Before starting the program, she was a huge closet eater and that if she is alone which she would often overeat. She feels her biggest treat is salty popcorn but also likes salty nuts and chips. She notes she is not a sweet person. She does not have enough frequency to be considered that binge eating disorder. She notes constant food thoughts and increased appetite. 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 She will continue care with our diabetic department. She does have some GI issues of some chronic constipation which she is working on and occasional right upper quadrant discomfort even though she has had cholecystectomy. Her son required bariatric surgery for his weight. 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 Behavioral: The patient's previous eating habits prior to starting our program poor Before starting the program the biggest reasons for weight struggles include binge eating, boredom eater, constant food thoughts/ cravings, eat most dinners out, family weight issues, health issues, lack of activity, lack of exercise, late night snacking, medications I am or have taken, poor meal /snack planning, skip breakfast, skip lunch, unhealthy diet, unhealthy snacks. Exercise before starting the program: Yes 1-3 x week, treadmill 5-25 minutes, just getting started.The patient will treat with long-term lifestyle changes of improved nutrition, increased exercise and activity, stress reduction, adequate sleep and behavioral modification versus short-term dieting. Her Anderson was 8 with starting the program. She notes she is only an occasional snorer. She denies any known cardiac or lung issues but does note she gets some OH. I recommend follow-up with her PCP for cardiac evaluation/clearance. 3. Type 1 diabetes mellitus-Improved with A1c dropping from 7.9 now down to 6.5 with our program. She will continue to treat with better diet/healthy lifestyle change and continued follow-up with our diabetic nurse practitioner/diabetic education for pump and CGM management. 4. Hypercholesterolemia-LDL at goal now. She has normal triglycerides and a good HDL. She will continue to treat with decreasing the bad fats, added fats, increase activity and exercise and achieve long-term weight loss. Controlled with high-dose statin. Her triglycerides and HDL are good. 5. CKD 3 with positive microalbuminuria 6. Diabetic neuropathy 7. History of chronic constipation 8. Status post cholecystectomy Follow up with me in 8 weeks. New labs needed: Up-to-date. She should continue regular lab work with her PCP and with our diabetic nurse practitioner for type 1 diabetes. [facility] Work Phone: [phone]) 915-372407-31-2024 Evaluation note* Author Apolin[facility] Authored June 27, 2024 10:4 2am Highest weight: 170 lbs. She is down 13.0 lbs . Start weight: 171.1 lbs. She is down 14.0 lbs. today with a weight of 156.2 lbs. she is down 4.0 since last visit was 05/15/2024. Starting Date: 04-03-2024. 1. Abnormal weight gain 2. Obesity-Significant improvements in starting our program and taking a GLP-1 agonist to help with appetite control and weight management, but then developed nausea on the 0.6 mg dose and is now trying without medication. She could try the medication again if needed as she had no problems on the starting dose. She is managing her type 1 diabetes with our diabetic department and seeing her diabetic compatibility test engineer Mariama. And her A1c is dropped from 7.9 down to 6.5 with less insulin and no increase in lows. She is now following the plate method and has been restricting her even complex starches but we will add back and monitor with her CGM following the plate method. She is to gradually try to increase her exercise frequency. She will continue to work on good sleep habits. She should try to keep binge food/trigger foods out of the house. She understands the risk of skipping breakfast and lunch and eating all her dinners out. She understands risk of nighttime eating and being a night owl. She understands the risk of drinking her calories she notes she drinks alcohol 1 to 3 days a week 2-4 drinks. Her type 1 diabetes was incompletely controlled with her A1c of 7.9. She has an insulin pump and CGM and notes only rare mild hypoglycemia. She concerned about abdominal weight gain and feels she is having effects of weighing more. 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 She often will skip breakfast and sometimes lunch and then almost always eat dinner out. She notes they eat out about 5 days a week for dinner and the days they do not eat out as usually leftovers. She does note she is a huge closet eater . She notes that if she is alone which she often does not she will often overeat. She feels her biggest treat is salty popcorn but also likes salty nuts and chips. She notes she is not a sweet person. She does not have enough frequency to be considered that binge eating disorder. She notes constant food thoughts and increased appetite. 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 She would like to start care with our diabetic department. She is currently getting care from her PCP. She does have some GI issues of some chronic constipation which she is working on and occasional right upper quadrant discomfort even though she has had cholecystectomy. Her son required bariatric surgery for his weight. 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 Behavioral: The patient's previous eating habits prior to starting our program poor Before starting the program the biggest reasons for weight struggles include binge eating, boredom eater, constant food thoughts/ cravings, eat most dinners out, family weight issues, health issues, lack of activity, lack of exercise, late night snacking, medications I am or have taken, poor meal /snack planning, skip breakfast, skip lunch, unhealthy diet, unhealthy snacks. Exercise before starting the program: Yes 1-3 x week, treadmill 5-25 minutes, just getting started.The patient will treat with long-term lifestyle changes of improved nutrition, increased exercise and activity, stress reduction, adequate sleep and behavioral modification versus short-term dieting. Her Anderson was 8 with starting the program. She notes she is only an occasional snorer. She denies any known cardiac or lung issues but does note she gets some OH. I recommend follow-up with her PCP for cardiac evaluation/clearance. 3. Type 1 diabetes mellitus-Improved with A1c dropping from 7.9 now down to 6.5 with our program. She will continue to treat with better diet/healthy lifestyle change and continued follow-up with our diabetic nurse practitioner/diabetic education for pump and CGM management. 4. Hypercholesterolemia-LDL at goal now. She has normal triglycerides and a good HDL. She will continue totreat with decreasing the bad fats, added fats, increase activity and exercise and achieve long-term weight loss. Controlled with high-dose statin. Her triglycerides and HDL are good. 5. CKD 3 with positive microalbuminuria 6. Diabetic neuropathy 7. History of chronic constipation 8. Status post cholecystectomy Follow up with me in 8 weeks. New labs needed: Up-to-date. She should continue regular lab work with her PCP and with our diabetic nurse practitioner for type 1 diabetes. Author Katelyn [facility] Authored August 28, 2024 10 :34am Highest weight: 170 lbs. She is down 15.9 lbs . Start weight: 171.1 lbs. She is down 17.0 lbs. today with a weight of 154.1 lbs. she is down 2.1 lbs. since last visit was . Starting Date: 04-03-2024. 1. Abnormal weight gain 2. Obesity-Significant improvements in starting our program and taking a GLP-1 agonist to help with appetite control and weight management, but then developed nausea on the 0.6 mg dose and is now trying without medication. She could try the medication again if needed as she had no problems on the starting dose. She is managing her type 1 diabetes with our diabetic department and seeing her diabetic compatibility test engineer Mariama. And her A1c is dropped from 7.9 down to 6.5 with less insulin and no increase in lows. She is now following the plate method and has been restricting her even complex starches but we will add back and monitor with her CGM following the plate method. She is to gradually try to increase her exercise frequency. She will continue to work on good sleep habits. She should try to keep binge food/trigger foods out of the house. She understands the risk of skipping breakfast and lunch and eating all her dinners out. She understands risk of nighttime eating and being a night owl. She understands the risk of drinking her calories she notes she drinks alcohol 1 to 3 days a week 2-4 drinks. Her type 1 diabetes was incompletely controlled with her A1c of 7.9. She has an insulin pump and CGM and notes only rare mild hypoglycemia. She concerned about abdominal weight gain and feels she is having effects of weighing more. 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 She often will skip breakfast and sometimes lunch and then almost always eat dinner out. She notes they eat out about 5 days a week for dinner and the days they do not eat out as usually leftovers. She does note she is a huge closet eater . She notes that if she is alone which she often does not she will often overeat. She feels her biggest treat is salty popcorn but also likes salty nuts and chips. She notes she is not a sweet person. She does not have enough frequency to be considered that binge eating disorder. She notes constant food thoughts and increased appetite. 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 She would like to start care with our diabetic department. She is currently getting care from her PCP. She does have some GI issues of some chronic constipation which she is working on and occasional right upper quadrant discomfort even though she has had cholecystectomy. Her son required bariatric surgery for his weight. 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 Behavioral: The patient's previous eating habits prior to starting our program poor Before starting the program the biggest reasons for weight struggles include binge eating, boredom eater, constant food thoughts/ cravings, eat most dinners out, family weight issues, health issues, lack of activity, lack of exercise, late night snacking, medications I am or have taken, poor meal /snack planning, skip breakfast, skip lunch, unhealthy diet, unhealthy snacks. Exercise before starting the program: Yes 1-3 x week, treadmill 5-25 minutes, just getting started.The patient will treat with long-term lifestyle changes of improved nutrition, increased exercise and activity, stress reduction, adequate sleep and behavioral modification versus short-term dieting. Her Anderson was 8 with starting the program. She notes she is only an occasional snorer. She denies any known cardiac or lung issues but does note she gets some OH. I recommend follow-up with her PCP for cardiac evaluation/clearance. 3. Type 1 diabetes mellitus-Improved with A1c dropping from 7.9 now down to 6.5 with our program. She will continue to treat with better diet/healthy lifestyle change and continued follow-up with our diabetic nurse practitioner/diabetic education for pump and CGM management. 4. Hypercholesterolemia-LDL at goal now. She has normal triglycerides and a good HDL. She will continue totreat with decreasing the bad fats, added fats, increase activity and exercise and achieve long-term weight loss. Controlled with high-dose statin. Her triglycerides and HDL are good. 5. CKD 3 with positive microalbuminuria 6. Diabetic neuropathy 7. History of chronic constipation 8. Status post cholecystectomy Follow up with me in 8 weeks. New labs needed: Up-to-date. She should continue regular lab work with her PCP and with our diabetic nurse practitioner for type 1 diabetes. [facility] Work Phone: [phone]) 730-830307-31-2024 Evaluation note* Author Apolinar [facility] Authored June 27, 2024 10:4 2am Highest weight: 170 lbs. She is down 13.0 lbs . Start weight: 171.1 lbs. She is down 14.0 lbs. today with a weight of 156.2 lbs. she is down 4.0 since last visit was 05/15/2024. Starting Date: 04-03-2024. 1. Abnormal weight gain 2. Obesity-Significant improvements in starting our program and taking a GLP-1 agonist to help with appetite control and weight management, but then developed nausea on the 0.6 mg dose and is now trying without medication. She could try the medication again if needed as she had no problems on the starting dose. She is managing her type 1 diabetes with our diabetic department and seeing her diabetic compatibility test engineer Mariama. And her A1c is dropped from 7.9 down to 6.5 with less insulin and no increase in lows. She is now following the plate method and has been restricting her even complex starches but we will add back and monitor with her CGM following the plate method. She is to gradually try to increase her exercise frequency. She will continue to work on good sleep habits. She should try to keep binge food/trigger foods out of the house. She understands the risk of skipping breakfast and lunch and eating all her dinners out. She understands risk of nighttime eating and being a night owl. She understands the risk of drinking her calories she notes she drinks alcohol 1 to 3 days a week 2-4 drinks. Her type 1 diabetes was incompletely controlled with her A1c of 7.9. She has an insulin pump and CGM and notes only rare mild hypoglycemia. She concerned about abdominal weight gain and feels she is having effects of weighing more. 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 She often will skip breakfast and sometimes lunch and then almost always eat dinner out. She notes they eat out about 5 days a week for dinner and the days they do not eat out as usually leftovers. She does note she is a huge closet eater . She notes that if she is alone which she often does not she will often overeat. She feels her biggest treat is salty popcorn but also likes salty nuts and chips. She notes she is not a sweet person. She does not have enough frequency to be considered that binge eating disorder. She notes constant food thoughts and increased appetite. 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 She would like to start care with our diabetic department. She is currently getting care from her PCP. She does have some GI issues of some chronic constipation which she is working on and occasional right upper quadrant discomfort even though she has had cholecystectomy. Her son required bariatric surgery for his weight. 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 Behavioral: The patient's previous eating habits prior to starting our program poor Before starting the program the biggest reasons for weight struggles include binge eating, boredom eater, constant food thoughts/ cravings, eat most dinners out, family weight issues, health issues, lack of activity, lack of exercise, late night snacking, medications I am or have taken, poor meal /snack planning, skip breakfast, skip lunch, unhealthy diet, unhealthy snacks. Exercise before starting the program: Yes 1-3 x week, treadmill 5-25 minutes, just getting started.The patient will treat with long-term lifestyle changes of improved nutrition, increased exercise and activity, stress reduction, adequate sleep and behavioral modification versus short-term dieting. Her Anderson was 8 with starting the program. She notes she is only an occasional snorer. She denies any known cardiac or lung issues but does note she gets some OH. I recommend follow-up with her PCP for cardiac evaluation/clearance. 3. Type 1 diabetes mellitus-Improved with A1c dropping from 7.9 now down to 6.5 with our program. She will continue to treat with better diet/healthy lifestyle change and continued follow-up with our diabetic nurse practitioner/diabetic education for pump and CGM management. 4. Hypercholesterolemia-LDL at goal now. She has normal triglycerides and a good HDL. She will continue totreat with decreasing the bad fats, added fats, increase activity and exercise and achieve long-term weight loss. Controlled with high-dose statin. Her triglycerides and HDL are good. 5. CKD 3 with positive microalbuminuria 6. Diabetic neuropathy 7. History of chronic constipation 8. Status post cholecystectomy Follow up with me in 8 weeks. New labs needed: Up-to-date. She should continue regular lab work with her PCP and with our diabetic nurse practitioner for type 1 diabetes. Author Maria Fernanda [facility] Authored August 21, 2024 3:36pm Highest weight: 170 lbs. She is down 13.0 lbs . Start weight: 171.1 lbs. She is down 14.0 lbs. today with a weight of 156.2 lbs. she is down 4.0 since last visit was 05/15/2024. Starting Date: 04-03-2024. 1. Abnormal weight gain 2. Obesity-Significant improvements in starting our program and taking a GLP-1 agonist to help with appetite control and weight management, but then developed nausea on the 0.6 mg dose and is now trying without medication. She could try the medication again if needed as she had no problems on the starting dose. She is managing her type 1 diabetes with our diabetic department and seeing her diabetic compatibility test engineer Mariama. And her A1c is dropped from 7.9 down to 6.5 with less insulin and no increase in lows. She is now following the plate method and has been restricting her even complex starches but we will add back and monitor with her CGM following the plate method. She is to gradually try to increase her exercise frequency. She will continue to work on good sleep habits. She should try to keep binge food/trigger foods out of the house. She understands the risk of skipping breakfast and lunch and eating all her dinners out. She understands risk of nighttime eating and being a night owl. She understands the risk of drinking her calories she notes she drinks alcohol 1 to 3 days a week 2-4 drinks. Her type 1 diabetes was incompletely controlled with her A1c of 7.9. She has an insulin pump and CGM and notes only rare mild hypoglycemia. She concerned about abdominal weight gain and feels she is having effects of weighing more. 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 She often will skip breakfast and sometimes lunch and then almost always eat dinner out. She notes they eat out about 5 days a week for dinner and the days they do not eat out as usually leftovers. She does note she is a huge closet eater . She notes that if she is alone which she often does not she will often overeat. She feels her biggest treat is salty popcorn but also likes salty nuts and chips. She notes she is not a sweet person. She does not have enough frequency to be considered that binge eating disorder. She notes constant food thoughts and increased appetite. 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 She would like to start care with our diabetic department. She is currently getting care from her PCP. She does have some GI issues of some chronic constipation which she is working on and occasional right upper quadrant discomfort even though she has had cholecystectomy. Her son required bariatric surgery for his weight. 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 Behavioral: The patient's previous eating habits prior to starting our program poor Before starting the program the biggest reasons for weight struggles include binge eating, boredom eater, constant food thoughts/ cravings, eat most dinners out, family weight issues, health issues, lack of activity, lack of exercise, late night snacking, medications I am or have taken, poor meal /snack planning, skip breakfast, skip lunch, unhealthy diet, unhealthy snacks. Exercise before starting the program: Yes 1-3 x week, treadmill 5-25 minutes, just getting started.The patient will treat with long-term lifestyle changes of improved nutrition, increased exercise and activity, stress reduction, adequate sleep and behavioral modification versus short-term dieting. Her Anderson was 8 with starting the program. She notes she is only an occasional snorer. She denies any known cardiac or lung issues but does note she gets some OH. I recommend follow-up with her PCP for cardiac evaluation/clearance. 3. Type 1 diabetes mellitus-Improved with A1c dropping from 7.9 now down to 6.5 with our program. She will continue to treat with better diet/healthy lifestyle change and continued follow-up with our diabetic nurse practitioner/diabetic education for pump and CGM management. 4. Hypercholesterolemia-LDL at goal now. She has normal triglycerides and a good HDL. She will continue totreat with decreasing the bad fats, added fats, increase activity and exercise and achieve long-term weight loss. Controlled with high-dose statin. Her triglycerides and HDL are good. 5. CKD 3 with positive microalbuminuria 6. Diabetic neuropathy 7. History of chronic constipation 8. Status post cholecystectomy Follow up with me in 8 weeks. New labs needed: Up-to-date. She should continue regular lab work with her PCP and with our diabetic nurse practitioner for type 1 diabetes. [facility] Work Phone: [phone]) [phone] Evaluation note* Author [facility] Authored June 27, 2024 10:4 2am Highest weight: 170 lbs. She is down 13.0 lbs . Start weight: 171.1 lbs. She is down 14.0 lbs. today with a weight of 156.2 lbs. she is down 4.0 since last visit was 05/15/2024. Starting Date: 04-03-2024. 1. Abnormal weight gain 2. Obesity-Significant improvements in starting our program and taking a GLP-1 agonist to help with appetite control and weight management, but then developed nausea on the 0.6 mg dose and is now trying without medication. She could try the medication again if needed as she had no problems on the starting dose. She is managing her type 1 diabetes with our diabetic department and seeing her diabetic compatibility test engineer Mariama. And her A1c is dropped from 7.9 down to 6.5 with less insulin and no increase in lows. She is now following the plate method and has been restricting her even complex starches but we will add back and monitor with her CGM following the plate method. She is to gradually try to increase her exercise frequency. She will continue to work on good sleep habits. She should try to keep binge food/trigger foods out of the house. She understands the risk of skipping breakfast and lunch and eating all her dinners out. She understands risk of nighttime eating and being a night owl. She understands the risk of drinking her calories she notes she drinks alcohol 1 to 3 days a week 2-4 drinks. Her type 1 diabetes was incompletely controlled with her A1c of 7.9. She has an insulin pump and CGM and notes only rare mild hypoglycemia. She concerned about abdominal weight gain and feels she is having effects of weighing more. 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 She often will skip breakfast and sometimes lunch and then almost always eat dinner out. She notes they eat out about 5 days a week for dinner and the days they do not eat out as usually leftovers. She does note she is a huge closet eater . She notes that if she is alone which she often does not she will often overeat. She feels her biggest treat is salty popcorn but also likes salty nuts and chips. She notes she is not a sweet person. She does not have enough frequency to be considered that binge eating disorder. She notes constant food thoughts and increased appetite. 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 She would like to start care with our diabetic department. She is currently getting care from her PCP. She does have some GI issues of some chronic constipation which she is working on and occasional right upper quadrant discomfort even though she has had cholecystectomy. Her son required bariatric surgery for his weight. 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 Behavioral: The patient's previous eating habits prior to starting our program poor Before starting the program the biggest reasons for weight struggles include binge eating, boredom eater, constant food thoughts/ cravings, eat most dinners out, family weight issues, health issues, lack of activity, lack of exercise, late night snacking, medications I am or have taken, poor meal /snack planning, skip breakfast, skip lunch, unhealthy diet, unhealthy snacks. Exercise before starting the program: Yes 1-3 x week, treadmill 5-25 minutes, just getting started.The patient will treat with long-term lifestyle changes of improved nutrition, increased exercise and activity, stress reduction, adequate sleep and behavioral modification versus short-term dieting. Her Anderson was 8 with starting the program. She notes she is only an occasional snorer. She denies any known cardiac or lung issues but does note she gets some OH. I recommend follow-up with her PCP for cardiac evaluation/clearance. 3. Type 1 diabetes mellitus-Improved with A1c dropping from 7.9 now down to 6.5 with our program. She will continue to treat with better diet/healthy lifestyle change and continued follow-up with our diabetic nurse practitioner/diabetic education for pump and CGM management. 4. Hypercholesterolemia-LDL at goal now. She has normal triglycerides and a good HDL. She will continue totreat with decreasing the bad fats, added fats, increase activity and exercise and achieve long-term weight loss. Controlled with high-dose statin. Her triglycerides and HDL are good. 5. CKD 3 with positive microalbuminuria 6. Diabetic neuropathy 7. History of chronic constipation 8. Status post cholecystectomy Follow up with me in 8 weeks. New labs needed: Up-to-date. She should continue regular lab work with her PCP and with our diabetic nurse practitioner for type 1 diabetes. Author [facility] Authored August 28, 2024 10 :57am Highest weight: 170 lbs. She is down 15.9 lbs . Start weight: 171.1 lbs. She is down 17.0 lbs. today with a weight of 154.1 lbs. she is down 2.1 lbs. since last visit was . Starting Date: 04-03-2024. 1. Abnormal weight gain 2. Obesity-Significant improvements in starting our program and initially taking a GLP-1 agonist to help with appetite control and weight management, but then developed nausea on the 0.6 mg dose and is still trying without medication. She could try the medication again if needed as she had no problems on the starting dose and she feels it was more the caffeine that caused the nausea. She is managing her type 1 diabetes with our diabetic department and seeing her diabetic compatibility test engineer Mariama. And her A1c is dropped from 7.9 down to 6.5 with less insulin and no increase in lows. She is now following the plate method and has been restricting her even complex starches but we will add back and monitor with her CGM following the plate method. She is to gradually try to increase her exercise frequency and is considering slowly adding strength training. She will continue to work on good sleep habits. She should try to keep binge food/trigger foods out of the house. She understands the risk of skipping breakfast and lunch and eating all her dinners out. She understands risk of nighttime eating and being a night owl. She understands the risk of drinking her calories she notes she drinks alcohol 1 to 3 days a week 2-4 drinks. She has an insulin pump and CGM and notes only rare mild hypoglycemia. She concerned about abdominal weight gain and feels she is having effects of weighing more. 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 Before starting the program, she was a huge closet eater and that if she is alone which she would often overeat. She feels her biggest treat is salty popcorn but also likes salty nuts and chips. She notes she is not a sweet person. She does not have enough frequency to be considered that binge eating disorder. She notes constant food thoughts and increased appetite. 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 She will continue care with our diabetic department. She does have some GI issues of some chronic constipation which she is working on and occasional right upper quadrant discomfort even though she has had cholecystectomy. Her son required bariatric surgery for his weight. 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 Behavioral: The patient's previous eating habits prior to starting our program poor Before starting the program the biggest reasons for weight struggles include binge eating, boredom eater, constant food thoughts/ cravings, eat most dinners out, family weight issues, health issues, lack of activity, lack of exercise, late night snacking, medications I am or have taken, poor meal /snack planning, skip breakfast, skip lunch, unhealthy diet, unhealthy snacks. Exercise before starting the program: Yes 1-3 x week, treadmill 5-25 minutes, just getting started.The patient will treat with long-term lifestyle changes of improved nutrition, increased exercise and activity, stress reduction, adequate sleep and behavioral modification versus short-term dieting. Her Anderson was 8 with starting the program. She notes she is only an occasional snorer. She denies any known cardiac or lung issues but does note she gets some OH. I recommend follow-up with her PCP for cardiac evaluation/clearance. 3. Type 1 diabetes mellitus-Improved with A1c dropping from 7.9 now down to 6.5 with our program. She will continue to treat with better diet/healthy lifestyle change and continued follow-up with our diabetic nurse practitioner/diabetic education for pump and CGM management. 4. Hypercholesterolemia-LDL at goal now. She has normal triglycerides and a good HDL. She will continue to treat with decreasing the bad fats, added fats, increase activity and exercise and achieve long-term weight loss. Controlled with high-dose statin. Her triglycerides and HDL are good. 5. CKD 3 with positive microalbuminuria 6. Diabetic neuropathy 7. History of chronic constipation 8. Status post cholecystectomy Follow up with me in 8 weeks. New labs needed: Up-to-date. She should continue regular lab work with her PCP and with our diabetic nurse practitioner for type 1 diabetes. [facility] Work Phone: [phone]) [phone] Evaluation note* Author [facility]olin[facility] Authored May 15, 2024 10:1 5am Highest weight: 170 lbs. She is down 9.8 lbs. Start weight: 171.1 lbs. She is down 10.9 lbs. today with a weight of 160.2 lbs. last visit was 04/03/2024. Starting Date: 04-03-2024. 1. Abnormal weight gain 2. Obesity-Significant improvements in starting our program and taking a GLP-1 agonist to help with appetite control and weight management. She is managing her type 1 diabetes with our diabetic department. And her A1c is dropped from 7.9 down to 6.5 with less insulin and no increase in lows. She is now following the plate method and has been restricting her even complex starches but we will add back and monitor with her CGM following the plate method. She is to gradually try to increase her exercise frequency. She will continue to work on good sleep habits. She should try to keep binge food/trigger foods out of the house. She understands the risk of skipping breakfast and lunch and eating all her dinners out. She understands risk of nighttime eating and being a night owl. She understands the risk of drinking her calories she notes she drinks alcohol 1 to 3 days a week 2-4 drinks. Her type 1 diabetes was incompletely controlled with her A1c of 7.9. She has an insulin pump and CGM and notes only rare mild hypoglycemia. She concerned about abdominal weight gain and feels she is having effects of weighing more. 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 She often will skip breakfast and sometimes lunch and then almost always eat dinner out. She notes they eat out about 5 days a week for dinner and the days they do not eat out as usually leftovers. She does note she is a huge closet eater . She notes that if she is alone which she often does not she will often overeat. She feels her biggest treat is salty popcorn but also likes salty nuts and chips. She notes she is not a sweet person. She does not have enough frequency to be considered that binge eating disorder. She notes constant food thoughts and increased appetite. 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 She would like to start care with our diabetic department. She is currently getting care from her PCP. She does have some GI issues of some chronic constipation which she is working on and occasional right upper quadrant discomfort even though she has had cholecystectomy. Her son required bariatric surgery for his weight. 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 Behavioral: The patient's previous eating habits prior to starting our program poor Before starting the program the biggest reasons for weight struggles include binge eating, boredom eater, constant food thoughts/ cravings, eat most dinners out, family weight issues, health issues, lack of activity, lack of exercise, late night snacking, medications I am or have taken, poor meal /snack planning, skip breakfast, skip lunch, unhealthy diet, unhealthy snacks. Exercise before starting the program: Yes 1-3 x week, treadmill 5-25 minutes, just getting started.The patient will treat with long-term lifestyle changes of improved nutrition, increased exercise and activity, stress reduction, adequate sleep and behavioral modification versus short-term dieting. Her Anderson was 8 with starting the program. She notes she is only an occasional snorer. She denies any known cardiac or lung issues but does note she gets some OH. I recommend follow-up with her PCP for cardiac evaluation/clearance. 3. Type 1 diabetes mellitus-Improved with A1c dropping from 7.9 now down to 6.5 with our program. She will continue to treat with better diet/healthy lifestyle change and continued follow-up with our diabetic nurse practitioner/diabetic education for pump and CGM management. 4. Hypercholesterolemia-LDL at goal now. She has normal triglycerides and a good HDL. She will continue totreat with decreasing the bad fats, added fats, increase activity and exercise and achieve long-term weight loss. Controlled with high-dose statin. Her triglycerides and HDL are good. 5. CKD 3 with positive microalbuminuria 6. Diabetic neuropathy 7. History of chronic constipation 8. Status post cholecystectomy Follow up with me in 6 weeks. New labs needed: Up-to-date. Continue regular lab work with her PCP and with our diabetic nurse practitioner for type 1 diabetes. Author [facility] Authored June 27, 2024 10:4 2am Highest weight: 170 lbs. She is down 13.0 lbs . Start weight: 171.1 lbs. She is down 14.0 lbs. today with a weight of 156.2 lbs. she is down 4.0 since last visit was 05/15/2024. Starting Date: 04-03-2024. 1. Abnormal weight gain 2. Obesity-Significant improvements in starting our program and taking a GLP-1 agonist to help with appetite control and weight management, but then developed nausea on the 0.6 mg dose and is now trying without medication. She could try the medication again if needed as she had no problems on the starting dose. She is managing her type 1 diabetes with our diabetic department and seeing her diabetic compatibility test engineer Mariama. And her A1c is dropped from 7.9 down to 6.5 with less insulin and no increase in lows. She is now following the plate method and has been restricting her even complex starches but we will add back and monitor with her CGM following the plate method. She is to gradually try to increase her exercise frequency. She will continue to work on good sleep habits. She should try to keep binge food/trigger foods out of the house. She understands the risk of skipping breakfast and lunch and eating all her dinners out. She understands risk of nighttime eating and being a night owl. She understands the risk of drinking her calories she notes she drinks alcohol 1 to 3 days a week 2-4 drinks. Her type 1 diabetes was incompletely controlled with her A1c of 7.9. She has an insulin pump and CGM and notes only rare mild hypoglycemia. She concerned about abdominal weight gain and feels she is having effects of weighing more. 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 She often will skip breakfast and sometimes lunch and then almost always eat dinner out. She notes they eat out about 5 days a week for dinner and the days they do not eat out as usually leftovers. She does note she is a huge closet eater . She notes that if she is alone which she often does not she will often overeat. She feels her biggest treat is salty popcorn but also likes salty nuts and chips. She notes she is not a sweet person. She does not have enough frequency to be considered that binge eating disorder. She notes constant food thoughts and increased appetite. 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 She would like to start care with our diabetic department. She is currently getting care from her PCP. She does have some GI issues of some chronic constipation which she is working on and occasional right upper quadrant discomfort even though she has had cholecystectomy. Her son required bariatric surgery for his weight. 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 Behavioral: The patient's previous eating habits prior to starting our program poor Before starting the program the biggest reasons for weight struggles include binge eating, boredom eater, constant food thoughts/ cravings, eat most dinners out, family weight issues, health issues, lack of activity, lack of exercise, late night snacking, medications I am or have taken, poor meal /snack planning, skip breakfast, skip lunch, unhealthy diet, unhealthy snacks. Exercise before starting the program: Yes 1-3 x week, treadmill 5-25 minutes, just getting started.The patient will treat with long-term lifestyle changes of improved nutrition, increased exercise and activity, stress reduction, adequate sleep and behavioral modification versus short-term dieting. Her Anderson was 8 with starting the program. She notes she is only an occasional snorer. She denies any known cardiac or lung issues but does note she gets some OH. I recommend follow-up with her PCP for cardiac evaluation/clearance. 3. Type 1 diabetes mellitus-Improved with A1c dropping from 7.9 now down to 6.5 with our program. She will continue to treat with better diet/healthy lifestyle change and continued follow-up with our diabetic nurse practitioner/diabetic education for pump and CGM management. 4. Hypercholesterolemia-LDL at goal now. She has normal triglycerides and a good HDL. She will continue totreat with decreasing the bad fats, added fats, increase activity and exercise and achieve long-term weight loss. Controlled with high-dose statin. Her triglycerides and HDL are good. 5. CKD 3 with positive microalbuminuria 6. Diabetic neuropathy 7. History of chronic constipation 8. Status post cholecystectomy Follow up with me in 8 weeks. New labs needed: Up-to-date. She should continue regular lab work with her PCP and with our diabetic nurse practitioner for type 1 diabetes. [facility] Work Phone: 1(581) 753-706006-04-2024 Miscellaneous Notes* Telephone Encounter - Jackie Jimenez - 05/01/2024 8:22 AM EDT ----- Message from Sherrill Carlin DO sent at 01/12/2024 6:45 PM EST ----- DM recheck * Telephone Encounter - Jackie Jimenez - 05/01/2024 8:22 AM EDT Sent krystal msg * Telephone Encounter - Jackie Jimenez - 05/01/2024 8:22 AM EDT LM on VM * Telephone Encounter - Jackiesujata Jimenez - 05/01/2024 8:22 AM EDT [facility]* Telephone Encounter - Jackiesujata Jimenez - 05/01/2024 8:22 AM EDT ----- Message from Sherrill Carlin DO sent at 01/12/2024 6:45 PM EST ----- DM recheck Electronically signed by [facility]franklin at 05/01/2024 8:22 AM EDT [facility]-04[facility]24 Telephone encounter Note* Telephone Encounter - [facility] Estefaníamakayla - 05/01/2024 8:22 AM EDT Sent mychart msg [facility] Telephone encounter Note* [facility] 05/01/2024 8:22 AM EDT LM on VM [facility] Telephone encounter Note* Telephone Encounter - Jackie Tony - 05/01/2024 8:22 AM EDT sending letter [facility] Evaluation note* Author [facility] Authored April 03, 2024 12:57p m Assessment: Highest weight: 170 lbs Start weight: 171.1 lbs. Starting Date: 04-03-2024. 1. Abnormal weight gain 2. Obesity-she is decided against taking a GLP-1 agonist to try to help with appetite control and weight management. This medication could also help her diabetes if she has underlying insulin resistance. She has no contraindications. She would consider compounded semaglutide in the future but would like to make lifestyle changes on her own at this point. She is sent to our diabetic educators and our diabetic nurse practitioner for care of her type 1 diabetes. She must try to keep binge food/trigger foods out of the house. She understands the risk of skipping breakfast and lunch and eating all her dinners out. She understands risk of nighttime eating and being a night owl. She understands the risk of drinking her calories she notes she drinks alcohol 1 to 3 days a week 2-4 drinks. Her type 1 diabetes is incompletely controlled with her last A1c of 7.9. She has an insulin pump and CGM and notes only rare mild hypoglycemia. She concerned about abdominal weight gain and feels she is having effects of weighing more. 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 She often will skip breakfast and sometimes lunch and then almost always eat dinner out. She notes they eat out about 5 days a week for dinner and the days they do not eat out as usually leftovers. She does note she is a huge closet eater . She notes that if she is alone which she often does not she will often overeat. She feels her biggest treat is salty popcorn but also likes salty nuts and chips. She notes she is not a sweet person. She does not have enough frequency to be considered that binge eating disorder. She notes constant food thoughts and increased appetite. 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 She would like to start care with our diabetic department. She is currently getting care from her PCP. She does have some GI issues of some chronic constipation which she is working on and occasional right upper quadrant discomfort even though she has had cholecystectomy. Her son required bariatric surgery for his weight. 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 Behavioral: The patient's previous eating habits prior to starting our program poor Before starting the program the biggest reasons for weight struggles include binge eating, boredom eater, constant food thoughts/ cravings, eat most dinners out, family weight issues, health issues, lack of activity, lack of exercise, late night snacking, medications I am or have taken, poor meal /snack planning, skip breakfast, skip lunch, unhealthy diet, unhealthy snacks. Exercise before starting the program: Yes 1-3 x week, treadmill 5-25 minutes, just getting started.The patient will treat with long-term lifestyle changes of improved nutrition, increased exercise and activity, stress reduction, adequate sleep and behavioral modification versus short-term dieting. Her Anderson was 8 with starting the program. She notes she is only an occasional snorer. She denies any known cardiac or lung issues but does note she gets some OH. I recommend follow-up with her PCP for cardiac evaluation/clearance. 3. Type 1 diabetes mellitus-treat with better diet/healthy lifestyle change and referral to our diabetic nurse practitioner/diabetic education for pump and CGM management. 4. Hypercholesterolemia-treat with decreasing the bad fats, added fats, increase activity and exercise and achieve long-term weight loss. Controlled with high-dose statin. Her triglycerides and HDL are good. 5. Increased blood pressure rule out hypertension-treat with a low-salt diet, decreased processed and restaurant foods, healthy lifestyle changes and achieve long-term weight loss. Monitor outside the office. 6. Diabetic neuropathy 7. History of chronic constipation 8. Status post cholecystectomy Follow up with me in 6 weeks. New labs needed: Up-to-date. Continue regular lab work with her PCP and with our diabetic nurse practitioner for type 1 diabetes. The patient was instructed to consider logging all foods and caloric beverages. I highly recommended minimizing or stopping caloric beverages including alcohol. The importance of preplanning, shopping at the edge of the store, decreasing unhealthy food cues and environmental control stressed. I recommend packing snacks and meals when out of the home. Remove trigger/unhealthy foods if possible from the home. No macronutrient is completely restricted. We discussed the addictive nature and unhealthy biological changes that occur with ultra processed food. We discussed the brain and peripheral biological changes with obesity that make it a chronic disease. Importance of cooking most food items from scratch discussed. No skipping any meals. Avoid added sugar, refined starches, and added fats. I highly recommended preference for whole foods/real foods. Foods from the farm, not from the factory. The plate method discussed and handout given. Lean unprocessed protein with each meal and each snack to help control appetite, decrease cravings and lessen muscle loss with weight loss advised. Consider use of a protein shake or protein bar instead of missing a meal. The patient will try to get at least 5 or more servings of low carbohydrate veggies/salads daily. Recommend regular follow-up with our registered dietitian. Benefits of regular exercise including cardio and resistance training discussed and recommended as appropriate for the patient. Slowly increase activity. Our exercise program was recommended with our bid writer/obesity exercise group. Handout given. Our free weekly group support/food triggers program was highly recommended to help with long-term behavioral change and support. Handout given. The patient must start healthy behavioral changes. The patient was instructed on good sleep hygiene and on the importance of adequate sleep. Circadian rhythm and the importance of mealtime discussed. I recommended stress reduction. Medication addition and subtraction options discussed. Risks and benefits of prescribed meds discussed. Initial [id number] interview/evaluation. The patient was counseled in detail on the options for weight loss in an individual setting. 65 minutes was spent caring for the patient, counseling/educating patient on the options for the treatment of obesity and related healthcare issues. The program's treatment goals were reviewed with the patient. Each aspect of the program was discussed with the patient. [facility] Work Phone: [phone]) 158-355805-07-2024 Evaluation note* Author [facility] Authored April 03, 2024 12:57p m Assessment: Highest weight: 170 lbs Start weight: 171.1 lbs. Starting Date: 04-03-2024. 1. Abnormal weight gain 2. Obesity-she is decided against taking a GLP-1 agonist to try to help with appetite control and weight management. This medication could also help her diabetes if she has underlying insulin resistance. She has no contraindications. She would consider compounded semaglutide in the future but would like to make lifestyle changes on her own at this point. She is sent to our diabetic educators and our diabetic nurse practitioner for care of her type 1 diabetes. She must try to keep binge food/trigger foods out of the house. She understands the risk of skipping breakfast and lunch and eating all her dinners out. She understands risk of nighttime eating and being a night owl. She understands the risk of drinking her calories she notes she drinks alcohol 1 to 3 days a week 2-4 drinks. Her type 1 diabetes is incompletely controlled with her last A1c of 7.9. She has an insulin pump and CGM and notes only rare mild hypoglycemia. She concerned about abdominal weight gain and feels she is having effects of weighing more. 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 She often will skip breakfast and sometimes lunch and then almost always eat dinner out. She notes they eat out about 5 days a week for dinner and the days they do not eat out as usually leftovers. She does note she is a huge closet eater . She notes that if she is alone which she often does not she will often overeat. She feels her biggest treat is salty popcorn but also likes salty nuts and chips. She notes she is not a sweet person. She does not have enough frequency to be considered that binge eating disorder. She notes constant food thoughts and increased appetite. 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 She would like to start care with our diabetic department. She is currently getting care from her PCP. She does have some GI issues of some chronic constipation which she is working on and occasional right upper quadrant discomfort even though she has had cholecystectomy. Her son required bariatric surgery for his weight. 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 Behavioral: The patient's previous eating habits prior to starting our program poor Before starting the program the biggest reasons for weight struggles include binge eating, boredom eater, constant food thoughts/ cravings, eat most dinners out, family weight issues, health issues, lack of activity, lack of exercise, late night snacking, medications I am or have taken, poor meal /snack planning, skip breakfast, skip lunch, unhealthy diet, unhealthy snacks. Exercise before starting the program: Yes 1-3 x week, treadmill 5-25 minutes, just getting started.The patient will treat with long-term lifestyle changes of improved nutrition, increased exercise and activity, stress reduction, adequate sleep and behavioral modification versus short-term dieting. Her Anderson was 8 with starting the program. She notes she is only an occasional snorer. She denies any known cardiac or lung issues but does note she gets some OH. I recommend follow-up with her PCP for cardiac evaluation/clearance. 3. Type 1 diabetes mellitus-treat with better diet/healthy lifestyle change and referral to our diabetic nurse practitioner/diabetic education for pump and CGM management. 4. Hypercholesterolemia-treat with decreasing the bad fats, added fats, increase activity and exercise and achieve long-term weight loss. Controlled with high-dose statin. Her triglycerides and HDL are good. 5. Increased blood pressure rule out hypertension-treat with a low-salt diet, decreased processed and restaurant foods, healthy lifestyle changes and achieve long-term weight loss. Monitor outside the office. 6. Diabetic neuropathy 7. History of chronic constipation 8. Status post cholecystectomy Follow up with me in 6 weeks. New labs needed: Up-to-date. Continue regular lab work with her PCP and with our diabetic nurse practitioner for type 1 diabetes. The patient was instructed to consider logging all foods and caloric beverages. I highly recommended minimizing or stopping caloric beverages including alcohol. The importance of preplanning, shopping at the edge of the store, decreasing unhealthy food cues and environmental control stressed. I recommend packing snacks and meals when out of the home. Remove trigger/unhealthy foods if possible from the home. No macronutrient is completely restricted. We discussed the addictive nature and unhealthy biological changes that occur with ultra processed food. We discussed the brain and peripheral biological changes with obesity that make it a chronic disease. Importance of cooking most food items from scratch discussed. No skipping any meals. Avoid added sugar, refined starches, and added fats. I highly recommended preference for whole foods/real foods. Foods from the farm, not from the factory. The plate method discussed and handout given. Lean unprocessed protein with each meal and each snack to help control appetite, decrease cravings and lessen muscle loss with weight loss advised. Consider use of a protein shake or protein bar instead of missing a meal. The patient will try to get at least 5 or more servings of low carbohydrate veggies/salads daily. Recommend regular follow-up with our registered dietitian. Benefits of regular exercise including cardio and resistance training discussed and recommended as appropriate for the patient. Slowly increase activity. Our exercise program was recommended with our bid writer/obesity exercise group. Handout given. Our free weekly group support/food triggers program was highly recommended to help with long-term behavioral change and support. Handout given. The patient must start healthy behavioral changes. The patient was instructed on good sleep hygiene and on the importance of adequate sleep. Circadian rhythm and the importance of mealtime discussed. I recommended stress reduction. Medication addition and subtraction options discussed. Risks and benefits of prescribed meds discussed. Initial [id number] interview/evaluation. The patient was counseled in detail on the options for weight loss in an individual setting. 65 minutes was spent caring for the patient, counseling/educating patient on the options for the treatment of obesity and related healthcare issues. The program's treatment goals were reviewed with the patient. Each aspect of the program was discussed with the patient. Author Katelyn [facility] Authored May 15, 2024 9:50 am Highest weight: 170 lbs. She is down 9.8 lbs. Start weight: 171.1 lbs. She is down 10.9 lbs. today with a weight of 160.2 lbs. last visit was 04/03/2024. Starting Date: 04-03-2024. 1. Abnormal weight gain 2. Obesity-she is decided against taking a GLP-1 agonist to try to help with appetite control and weight management. This medication could also help her diabetes if she has underlying insulin resistance. She has no contraindications. She would consider compounded semaglutide in the future but would like to make lifestyle changes on her own at this point. She is sent to our diabetic educators and our diabetic nurse practitioner for care of her type 1 diabetes. She must try to keep binge food/trigger foods out of the house. She understands the risk of skipping breakfast and lunch and eating all her dinners out. She understands risk of nighttime eating and being a night owl. She understands the risk of drinking her calories she notes she drinks alcohol 1 to 3 days a week 2-4 drinks. Her type 1 diabetes is incompletely controlled with her last A1c of 7.9. She has an insulin pump and CGM and notes only rare mild hypoglycemia. She concerned about abdominal weight gain and feels she is having effects of weighing more. 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 She often will skip breakfast and sometimes lunch and then almost always eat dinner out. She notes they eat out about 5 days a week for dinner and the days they do not eat out as usually leftovers. She does note she is a huge closet eater . She notes that if she is alone which she often does not she will often overeat. She feels her biggest treat is salty popcorn but also likes salty nuts and chips. She notes she is not a sweet person. She does not have enough frequency to be considered that binge eating disorder. She notes constant food thoughts and increased appetite. 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 She would like to start care with our diabetic department. She is currently getting care from her PCP. She does have some GI issues of some chronic constipation which she is working on and occasional right upper quadrant discomfort even though she has had cholecystectomy. Her son required bariatric surgery for his weight. 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 Behavioral: The patient's previous eating habits prior to starting our program poor Before starting the program the biggest reasons for weight struggles include binge eating, boredom eater, constant food thoughts/ cravings, eat most dinners out, family weight issues, health issues, lack of activity, lack of exercise, late night snacking, medications I am or have taken, poor meal /snack planning, skip breakfast, skip lunch, unhealthy diet, unhealthy snacks. Exercise before starting the program: Yes 1-3 x week, treadmill 5-25 minutes, just getting started.The patient will treat with long-term lifestyle changes of improved nutrition, increased exercise and activity, stress reduction, adequate sleep and behavioral modification versus short-term dieting. Her Anderson was 8 with starting the program. She notes she is only an occasional snorer. She denies any known cardiac or lung issues but does note she gets some OH. I recommend follow-up with her PCP for cardiac evaluation/clearance. 3. Type 1 diabetes mellitus-treat with better diet/healthy lifestyle change and referral to our diabetic nurse practitioner/diabetic education for pump and CGM management. 4. Hypercholesterolemia-treat with decreasing the bad fats, added fats, increase activity and exercise and achieve long-term weight loss. Controlled with high-dose statin. Her triglycerides and HDL are good. 5. Increased blood pressure rule out hypertension-treat with a low-salt diet, decreased processed and restaurant foods, healthy lifestyle changes and achieve long-term weight loss. Monitor outside the office. 6. Diabetic neuropathy 7. History of chronic constipation 8. Status post cholecystectomy Follow up with me in 6 weeks. New labs needed: Up-to-date. Continue regular lab work with her PCP and with our diabetic nurse practitioner for type 1 diabetes. [facility] Work Phone: [phone]) [phone] Evaluation note* Author [facility]olin[facility] Authored April 03, 2024 12:57p m Assessment: Highest weight: 170 lbs Start weight: 171.1 lbs. Starting Date: 04-03-2024. 1. Abnormal weight gain 2. Obesity-she is decided against taking a GLP-1 agonist to try to help with appetite control and weight management. This medication could also help her diabetes if she has underlying insulin resistance. She has no contraindications. She would consider compounded semaglutide in the future but would like to make lifestyle changes on her own at this point. She is sent to our diabetic educators and our diabetic nurse practitioner for care of her type 1 diabetes. She must try to keep binge food/trigger foods out of the house. She understands the risk of skipping breakfast and lunch and eating all her dinners out. She understands risk of nighttime eating and being a night owl. She understands the risk of drinking her calories she notes she drinks alcohol 1 to 3 days a week 2-4 drinks. Her type 1 diabetes is incompletely controlled with her last A1c of 7.9. She has an insulin pump and CGM and notes only rare mild hypoglycemia. She concerned about abdominal weight gain and feels she is having effects of weighing more. 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 She often will skip breakfast and sometimes lunch and then almost always eat dinner out. She notes they eat out about 5 days a week for dinner and the days they do not eat out as usually leftovers. She does note she is a huge closet eater . She notes that if she is alone which she often does not she will often overeat. She feels her biggest treat is salty popcorn but also likes salty nuts and chips. She notes she is not a sweet person. She does not have enough frequency to be considered that binge eating disorder. She notes constant food thoughts and increased appetite. 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 She would like to start care with our diabetic department. She is currently getting care from her PCP. She does have some GI issues of some chronic constipation which she is working on and occasional right upper quadrant discomfort even though she has had cholecystectomy. Her son required bariatric surgery for his weight. 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 Behavioral: The patient's previous eating habits prior to starting our program poor Before starting the program the biggest reasons for weight struggles include binge eating, boredom eater, constant food thoughts/ cravings, eat most dinners out, family weight issues, health issues, lack of activity, lack of exercise, late night snacking, medications I am or have taken, poor meal /snack planning, skip breakfast, skip lunch, unhealthy diet, unhealthy snacks. Exercise before starting the program: Yes 1-3 x week, treadmill 5-25 minutes, just getting started.The patient will treat with long-term lifestyle changes of improved nutrition, increased exercise and activity, stress reduction, adequate sleep and behavioral modification versus short-term dieting. Her Anderson was 8 with starting the program. She notes she is only an occasional snorer. She denies any known cardiac or lung issues but does note she gets some OH. I recommend follow-up with her PCP for cardiac evaluation/clearance. 3. Type 1 diabetes mellitus-treat with better diet/healthy lifestyle change and referral to our diabetic nurse practitioner/diabetic education for pump and CGM management. 4. Hypercholesterolemia-treat with decreasing the bad fats, added fats, increase activity and exercise and achieve long-term weight loss. Controlled with high-dose statin. Her triglycerides and HDL are good. 5. Increased blood pressure rule out hypertension-treat with a low-salt diet, decreased processed and restaurant foods, healthy lifestyle changes and achieve long-term weight loss. Monitor outside the office. 6. Diabetic neuropathy 7. History of chronic constipation 8. Status post cholecystectomy Follow up with me in 6 weeks. New labs needed: Up-to-date. Continue regular lab work with her PCP and with our diabetic nurse practitioner for type 1 diabetes. The patient was instructed to consider logging all foods and caloric beverages. I highly recommended minimizing or stopping caloric beverages including alcohol. The importance of preplanning, shopping at the edge of the store, decreasing unhealthy food cues and environmental control stressed. I recommend packing snacks and meals when out of the home. Remove trigger/unhealthy foods if possible from the home. No macronutrient is completely restricted. We discussed the addictive nature and unhealthy biological changes that occur with ultra processed food. We discussed the brain and peripheral biological changes with obesity that make it a chronic disease. Importance of cooking most food items from scratch discussed. No skipping any meals. Avoid added sugar, refined starches, and added fats. I highly recommended preference for whole foods/real foods. Foods from the farm, not from the factory. The plate method discussed and handout given. Lean unprocessed protein with each meal and each snack to help control appetite, decrease cravings and lessen muscle loss with weight loss advised. Consider use of a protein shake or protein bar instead of missing a meal. The patient will try to get at least 5 or more servings of low carbohydrate veggies/salads daily. Recommend regular follow-up with our registered dietitian. Benefits of regular exercise including cardio and resistance training discussed and recommended as appropriate for the patient. Slowly increase activity. Our exercise program was recommended with our bid writer/obesity exercise group. Handout given. Our free weekly group support/food triggers program was highly recommended to help with long-term behavioral change and support. Handout given. The patient must start healthy behavioral changes. The patient was instructed on good sleep hygiene and on the importance of adequate sleep. Circadian rhythm and the importance of mealtime discussed. I recommended stress reduction. Medication addition and subtraction options discussed. Risks and benefits of prescribed meds discussed. Initial jjye-po-kwzh interview/evaluation. The patient was counseled in detail on the options for weight loss in an individual setting. 65 minutes was spent caring for the patient, counseling/educating patient on the options for the treatment of obesity and related healthcare issues. The program's treatment goals were reviewed with the patient. Each aspect of the program was discussed with the patient. Author [facility] Authored May 15, 2024 10:1 5am Highest weight: 170 lbs. She is down 9.8 lbs. Start weight: 171.1 lbs. She is down 10.9 lbs. today with a weight of 160.2 lbs. last visit was 04/03/2024. Starting Date: 04-03-2024. 1. Abnormal weight gain 2. Obesity-Significant improvements in starting our program and taking a GLP-1 agonist to help with appetite control and weight management. She is managing her type 1 diabetes with our diabetic department. And her A1c is dropped from 7.9 down to 6.5 with less insulin and no increase in lows. She is now following the plate method and has been restricting her even complex starches but we will add back and monitor with her CGM following the plate method. She is to gradually try to increase her exercise frequency. She will continue to work on good sleep habits. She should try to keep binge food/trigger foods out of the house. She understands the risk of skipping breakfast and lunch and eating all her dinners out. She understands risk of nighttime eating and being a night owl. She understands the risk of drinking her calories she notes she drinks alcohol 1 to 3 days a week 2-4 drinks. Her type 1 diabetes was incompletely controlled with her A1c of 7.9. She has an insulin pump and CGM and notes only rare mild hypoglycemia. She concerned about abdominal weight gain and feels she is having effects of weighing more. 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 She often will skip breakfast and sometimes lunch and then almost always eat dinner out. She notes they eat out about 5 days a week for dinner and the days they do not eat out as usually leftovers. She does note she is a huge closet eater . She notes that if she is alone which she often does not she will often overeat. She feels her biggest treat is salty popcorn but also likes salty nuts and chips. She notes she is not a sweet person. She does not have enough frequency to be considered that binge eating disorder. She notes constant food thoughts and increased appetite. 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 She would like to start care with our diabetic department. She is currently getting care from her PCP. She does have some GI issues of some chronic constipation which she is working on and occasional right upper quadrant discomfort even though she has had cholecystectomy. Her son required bariatric surgery for his weight. 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 Behavioral: The patient's previous eating habits prior to starting our program poor Before starting the program the biggest reasons for weight struggles include binge eating, boredom eater, constant food thoughts/ cravings, eat most dinners out, family weight issues, health issues, lack of activity, lack of exercise, late night snacking, medications I am or have taken, poor meal /snack planning, skip breakfast, skip lunch, unhealthy diet, unhealthy snacks. Exercise before starting the program: Yes 1-3 x week, treadmill 5-25 minutes, just getting started.The patient will treat with long-term lifestyle changes of improved nutrition, increased exercise and activity, stress reduction, adequate sleep and behavioral modification versus short-term dieting. Her Anderson was 8 with starting the program. She notes she is only an occasional snorer. She denies any known cardiac or lung issues but does note she gets some OH. I recommend follow-up with her PCP for cardiac evaluation/clearance. 3. Type 1 diabetes mellitus-Improved with A1c dropping from 7.9 now down to 6.5 with our program. She will continue to treat with better diet/healthy lifestyle change and continued follow-up with our diabetic nurse practitioner/diabetic education for pump and CGM management. 4. Hypercholesterolemia-LDL at goal now. She has normal triglycerides and a good HDL. She will continue totreat with decreasing the bad fats, added fats, increase activity and exercise and achieve long-term weight loss. Controlled with high-dose statin. Her triglycerides and HDL are good. 5. CKD 3 with positive microalbuminuria 6. Diabetic neuropathy 7. History of chronic constipation 8. Status post cholecystectomy Follow up with me in 6 weeks. New labs needed: Up-to-date. Continue regular lab work with her PCP and with our diabetic nurse practitioner for type 1 diabetes. Author Katelyn [facility] Authored June 27, 2024 10:1 8am Highest weight: 170 lbs. She is down 13.0 lbs . Start weight: 171.1 lbs. She is down 14.0 lbs. today with a weight of 156.2 lbs. she is down 4.0 since last visit was 05/15/2024. Starting Date: 04-03-2024. 1. Abnormal weight gain 2. Obesity-Significant improvements in starting our program and taking a GLP-1 agonist to help with appetite control and weight management. She is managing her type 1 diabetes with our diabetic department. And her A1c is dropped from 7.9 down to 6.5 with less insulin and no increase in lows. She is now following the plate method and has been restricting her even complex starches but we will add back and monitor with her CGM following the plate method. She is to gradually try to increase her exercise frequency. She will continue to work on good sleep habits. She should try to keep binge food/trigger foods out of the house. She understands the risk of skipping breakfast and lunch and eating all her dinners out. She understands risk of nighttime eating and being a night owl. She understands the risk of drinking her calories she notes she drinks alcohol 1 to 3 days a week 2-4 drinks. Her type 1 diabetes was incompletely controlled with her A1c of 7.9. She has an insulin pump and CGM and notes only rare mild hypoglycemia. She concerned about abdominal weight gain and feels she is having effects of weighing more. 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 She often will skip breakfast and sometimes lunch and then almost always eat dinner out. She notes they eat out about 5 days a week for dinner and the days they do not eat out as usually leftovers. She does note she is a huge closet eater . She notes that if she is alone which she often does not she will often overeat. She feels her biggest treat is salty popcorn but also likes salty nuts and chips. She notes she is not a sweet person. She does not have enough frequency to be considered that binge eating disorder. She notes constant food thoughts and increased appetite. 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 She would like to start care with our diabetic department. She is currently getting care from her PCP. She does have some GI issues of some chronic constipation which she is working on and occasional right upper quadrant discomfort even though she has had cholecystectomy. Her son required bariatric surgery for his weight. 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 Behavioral: The patient's previous eating habits prior to starting our program poor Before starting the program the biggest reasons for weight struggles include binge eating, boredom eater, constant food thoughts/ cravings, eat most dinners out, family weight issues, health issues, lack of activity, lack of exercise, late night snacking, medications I am or have taken, poor meal /snack planning, skip breakfast, skip lunch, unhealthy diet, unhealthy snacks. Exercise before starting the program: Yes 1-3 x week, treadmill 5-25 minutes, just getting started.The patient will treat with long-term lifestyle changes of improved nutrition, increased exercise and activity, stress reduction, adequate sleep and behavioral modification versus short-term dieting. Her Anderson was 8 with starting the program. She notes she is only an occasional snorer. She denies any known cardiac or lung issues but does note she gets some OH. I recommend follow-up with her PCP for cardiac evaluation/clearance. 3. Type 1 diabetes mellitus-Improved with A1c dropping from 7.9 now down to 6.5 with our program. She will continue to treat with better diet/healthy lifestyle change and continued follow-up with our diabetic nurse practitioner/diabetic education for pump and CGM management. 4. Hypercholesterolemia-LDL at goal now. She has normal triglycerides and a good HDL. She will continue totreat with decreasing the bad fats, added fats, increase activity and exercise and achieve long-term weight loss. Controlled with high-dose statin. Her triglycerides and HDL are good. 5. CKD 3 with positive microalbuminuria 6. Diabetic neuropathy 7. History of chronic constipation 8. Status post cholecystectomy Follow up with me in 6 weeks. New labs needed: Up-to-date. Continue regular lab work with her PCP and with our diabetic nurse practitioner for type 1 diabetes. [facility] Work Phone: [phone]) 822-251903-14-2024 NoteReliability was borderline. Progression has been stable. Findings include (Inferior>superior arcuate). Notes 24-2 TOP OSMANUALLY TRANSCRIBED [id number] NoteReliability was borderline. Progression has been stable. Findings include (Inferior>superior arcuate). Notes 24-2 TOP OSMANUALLY TRANSCRIBED [id number] History of Present illness Narrative* Sherrill Thakur MD - 02/09/2024 8:10 AM EDT Assessment/Plan: The pressure is up significantly in the left eye. She has not use the dorzolamide/timolol for aboutmonth. The visual field and OCT testing is stable, however. Her diabetic status appears to be stable. We will restart the dorzolamide/timolol. She was also using latanoprost in the past but she is sto pped before her last visit and pressures have been upper teens to low 20s which is satisfactory on the dorzolamide/timolol alone. She has follow-up with Dr. Bailey in the fall and will see me againin a year ICD-10-CM 1. Primary open angle glaucoma of left eye, indeterminate stage H40.1124 2. Pseudophakia of left eye Z96.1 3. 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 ([facility]) E11.3552 4. 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 HPI No changes with vision since the last exam. She continues retinal care with Dr. Bailey. She has not used Latanoprost drops since her last exam. She stopped Dorz-timolol drops ~4 weeks ago. Blood sugar is stable. Fasting blood sugar this morning was 129. A1C was 7.4 about 2 months ago - monitored by her PCP Last edited by Deb Scott on 02/09/2024 8:36 AM. ROS Positive for: Endocrine, Eyes Negative for: Constitutional, Gastrointestinal, Neurological, Skin, Genitourinary, Musculoskeletal,HENT, Cardiovascular, Respiratory, Psychiatric, Allergic/Imm, Heme/Lymph Last edited by Deb Scott on 02/09/2024 8:36 AM. No current outpatient medications on file. (Ophthalmic Drugs) No current facility-administered medications for this visit. (Ophthalmic Drugs) Current Outpatient Medications (Other) Medication Sig atorvastatin (LIPITOR) 80 mg tablet Take 1 tablet (80 mg total) by mouth in the morning. biotin 1 mg capsule Take by mouth. cetirizine (ZyrTEC) 10 mg tablet Take by mouth. clobetasoL (TEMOVATE) 0.05 % cream clobetasol 0.05 % topical cream DUPIXENT SYRINGE 300 mg/2 mL syringe SUBQ injection ergocalciferol (DRISDOL) 1,250 mcg (50,000 unit) capsule Vitamin D2 1,250 mcg (50,000 unit) capsule gabapentin (NEURONTIN) 300 mg capsule TAKE 1 CAPSULE DAILY HumaLOG U-100 Insulin 100 unit/mL injection USE 60 UNITS DAILY VIA INSULIN PUMP hydrocortisone (HYTONE) 2.5 % ointment Apply topically 2 (two) times a day as needed. ketoconazole (NIZORAL) 2 % shampoo Apply 1 Application topically once a week. fursb-pognd-2-aen-ejw-hvcpuh (KRILL OIL) 587-44-66-50 mg capsule Take by mouth. LOKELMA 5 gram packet MIX AND DRINK 1 PACKET TWO TIMES A WEEK pregabalin (LYRICA) 100 mg capsule TAKE 1 CAPSULE THREE TIMES A DAY clobetasoL (TEMOVATE) 0.05 % lotion clobetasol 0.05 % lotion (Patient not taking: Reported on 02/09/2024) dorzolamide-timoloL (COSOPT) 22.3-6.8 mg/mL ophthalmic solution Administer 1 drop into the left eyeevery 12 (twelve) hours. mivysebhu-T7-zjO09-algal oil (FOLTANX RF/MENTAX) 3 mg-35 mg-2 mg -90.314 mg capsule Metanx (algal oil) 3 mg-35 mg-2 mg-90.314 mg capsule (Patient not taking: Reported on 02/09/2024) No current facility-administered medications for this visit. (Other) Ms. Dahl has a past medical history of H/O vitrectomy, Hypercholesteremia, S/P YAG capsulotomy, left, and Type 1 diabetes ([facility]). She has a past surgical history that includes Cataract extraction w/ intraocular lens implant (Left, 06/05/2009); Retinal laser procedure (Left); Eye surgery (Right, 03/16/2001); Enucleation (Right, 03/16/2001); and YAG Capsulotomy (Left, 03/30/2012). Base Eye Exam Visual Acuity (Snellen - Linear) Right Left Dist sc Prosthesis 20/70 -2 Dist ph sc 20/50 -1 Tonometry (Tonopen, 8:33 AM) Right Left Pressure 23 Tonometry #2 (Applanation, 9:09 AM) Right Left Pressure 32 Tonometry Comments T2 p/dilation by JCB Pachymetry Right Left Thickness 623 Pupils Shape Right Left Round Neuro/Psych Oriented x3: Yes Mood/Affect: Normal Family member present for exam Dilation Left eye: 1.0% Tropicamide, 2.5% Phenylephrine Hydrochloride @ 8:33 AM Slit Lamp and Fundus Exam External Exam Right Left External prosthesis Normal Slit Lamp Exam Right Left Lids/Lashes prosthesis Normal Conjunctiva/Sclera White and quiet Cornea Clear Anterior Chamber Deep and quiet Iris no rubeosis Lens PC IOL w/open posterior capsule Fundus Exam Right Left Disc fibrous tissue C/D Ratio Vertical 0.2 C/D Ratio Horizontal 0.2 Macula Epiretinal membrane Vessels Vascular attenuation Periphery heavy PRP Scribe Statement: Scribed for and in the presence of Sherrill Thakur II, MD by CHARLES Mcclendon. Provider Statement: I, Sherrill Thakur II, MD personally performed the services described in the documentation, as scribed by CHARLES Mcclendon in my presence, and it is both accurate and complete. documented in this encounterThe [facility]03-14-[facility] Instructions* Patient Instructions* Gabby Alexander - 02/09/2024 8:10 AM EDT Images from the original note were not included. Patient Education Patient Education How to Use Eye Drops Why is this procedure done? Your doctor has ordered a drug for your eyes to help with eye problems you are having. You may givethese while you are sitting or standing. Some people are most comfortable doing eye drops when lying down. You can also have someone else help you with eye drops. What will the results be? The eye drop will get in your eye and the drug will be absorbed so your body can use it. What happens before the procedure? Make sure you have all of the items that you will need. Place them on a clean surface nearby. Eye drops A tissue or clean cloth Check to see if you have any drainage or crusting in your eyes. If you do, gently remove it with a clean cotton ball or clean warm wash cloth before placing the eye drugs in your eye. Check the drug. Read the label to make sure that you have the correct drug and that it is labeled ophthalmic, which means for eye use only. Make sure you have the right dose. Check the amount of drug against what the doctor ordered. Never use anyone else's eye drugs, even if it is the same drug. Know if you are supposed to give the eye drops in one eye or both. Check the expiration date. Do not use it if it is . Store your eye drugs away from the sunlight. Ask if they need to be kept in the refrigerator. Wash your hands with warm, soapy water before touching your eye. If you wear contact lenses, take them out before using eye drops. What happens during the procedure? Shake eye drops well before each use. Uncap the eye drop bottle and lay the cap on its side on a clean surface. Tilt your head back. Use one finger to gently pull the lower eyelid away from the eye to form a pouch. With the other hand, squeeze the eye drop into the pouch. Do not touch the tip of the bottle to your eye or anything else. Gently close your eyes. Do not blink. You may want to put one finger on the inside corner of your eye by your nose. This helps the drop to stay in your eye. After 1 to 2 minutes, open your eyes and move your finger. Some people squint and struggle to put eye drops in. Try closing your eyes. Place eye drop in the corner of your eye near your nose. Slowly open your eye 1 time and then close it. The eye drop will fall right into your eye. Finish by holding your finger at the inside corner of your eye and keeping your eyes closed for 1 to 2 more minutes. What happens after the procedure? Remove excess medicine around your eye with a clean tissue. Take care not to touch your eye. Recap the eye drop bottle and be careful not to touch the tip of the bottle. Wash your hands to remove any eye drops that may be on them. What follow-up care is needed? Your doctor may ask you to make visits to the office to check on your progress. Be sure to keep these visits. What problems could happen? Mild itching Burning Stinging Blurred vision Eye infection When do I need to call the doctor? You are not feeling better in 2 to 3 days or you are feeling worse If you have blurred vision for more than a few minutes after using your eye drops If you notice any redness or swelling Helpful tips If you are using more than 1 kind of eye drop, wait at least 5 minutes before using the other eye drop. If you are also using an eye ointment, use the eye drops first and wait at least 5 minutes before using the eye ointment. Where can I learn more? Gl[employer] Foundation http://www.glaucoma.org/treatment/eyedrop-tips.php National [facility] [place] https://www.nei.nih.gov/rtnmu-sixfy-vox-health/vgf-nxbfrseqzu-uop-diseases/glauc elizabeth/glaucoma-medicines/wea-kiz-zhe-drops Last Reviewed Date 2020-10-29 Consumer Information Use and Disclaimer This generalized information is a limited summary of diagnosis, treatment, and/or medication information. It is not meant to be comprehensive and should be used as a tool to help the user understand and/or assess potential diagnostic and treatment options. It does NOT include all information about conditions, treatments, medications, side effects, or risks that may apply to a specific patient. Itis not intended to be medical advice or a substitute for the medical advice, diagnosis, or treatment of a health care provider based on the health care provider's examination and assessment of a patient s specific and unique circumstances. Patients must speak with a health care provider for complete information about their health, medical questions, and treatment options, including any risks or benefits regarding use of medications. This information does not endorse any treatments or medications as safe, effective, or approved for treating a specific patient. 20/20 [employer] and its affiliatesdisclaim any warranty or liability relating to this information or the use thereof. The use of thisinformation is governed by the Terms of Use, available at https://www.wolterskluwer.com/en/know/qbpmeuuk-kcufqddsaqvwu-icsnd Copyright Copyright 2022 20/20 [employer] and its affiliates and/or licensors. All rights reserved. documented in this encounterAdams County HospitalRight Hemisphere Memorial [id number] Miscellaneous Notes* Telephone Encounter - Carey Nelson CMA - 01/30/2024 10:20 AM EST Spoke with patient regarding cologuard. Patient plans to complete soon. documented in this encounterSpringfield HospitalCatacomb Technologies03-04-2024 Telephone encounter Note* Telephone Encounter - Carey Nelson CMA - 01/30/2024 10:20 AM EST Spoke with patient regarding cologuard. Patient plans to complete soon. [facility] History of Present illness Narrative* Sherrill Carlin, DO - 01/12/2024 9:20 AM EST IM PROGRESS NOTE Patient - [facility]uridia [facility]ahl [facility] - 53 [facility] 1970 [id number] ASSESS[facility] & PLAN 1. 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 Is using about 13 units of insulin for basal infusion daily, and a proximally 5 units for bolus. -repeat A1c, and microalbumin to assess efficacy of current settings - Hemoglobin A1c; Future - Comprehensive metabolic panel; Future - Lipid profile; Future - Microalbumin - Albumin: Creatinine Urine Ratio; Future 2. Mixed hyperlipidemia -currently on atorvastatin 80 mg daily -repeat lipid panel to assess efficacy and evaluate for side effects 3. Stage 3a chronic kidney disease ([facility]) -microalbumin as above -on Lokelma intermittently, based on suspected potassium intake. -uses it if she has potatoes, tomatoes, etc. Subjective DIABETIC VISIT This is a follow up of a pre-existing problem. Patient self monitoring includes CGM. Uses Seventymm device which communicates with her insulin pump. Has had no hypoglycemia. Highest reading has been 250 mg/dL which is rare. Patient experiences hypoglycemia None. Patient symptoms of hyperglycemia include: none. Current prescribed diet is consistent carbohydrate. Patient is following the prescribed diet plan. At least partially. Home activity includes: The patient does not participate in regular exercise at present.. She is limited because of previous orthopedic problems and her vision. Patient does experience numbness or burning in their hands or feet. Current combination of gabapentin and pregabalin are controlling symptoms very well Patient does have vision changes. Last eye exam was: 2022 Patient BP monitoring is done sporadically, and can't recall values. Patient reports: taking medications as instructed, no medication side effects noted, patient does not perform home BP monitoring, no chest pain on exertion, no dyspnea on exertion, no swelling of ankles, no orthostatic dizziness or lightheadedness, no palpitations, and no intermittent claudication symptoms Issues affecting compliance with diabetic self management include: Occasional issues with Medtronicpump and getting supplies. Otherwise has been going well and is utilizing the CGM and auto correction much more frequently. A review of systems was negative except for the following: Ophthalmic: decreased vision and has prosthetic eye Gastrointestinal: constipation Neurological: numbness/tingling Dermatological: Currently on Dupixent. This is controlling her symptoms nearly 100%. Exam BP 110/66 (BP Site: Left Arm, BP Postition: Sitting) Pulse 91 Temp 36.6 C (97.8 F) (Oral) Ht 165.1 cm (5' 5 ) Wt 76.2 kg (168 lb 1.6 oz) SpO2 97% BMI 27.97 kg/m Physical Exam Vitals reviewed. Constitutional: General: She is not in acute distress. Appearance: She is well-developed. She is not toxic-appearing. Comments: Overweight HENT: Head: Normocephalic. Right Ear: External ear normal. Left Ear: External ear normal. Nose: Nose normal. Mouth/Throat: Mouth: Mucous membranes are moist. Eyes: General: No scleral icterus. Conjunctiva/sclera: Conjunctivae normal. Comments: Glass right eye. Neck: Vascular: No carotid bruit. Cardiovascular: Rate and Rhythm: Normal rate and regular rhythm. Heart sounds: No murmur heard. No gallop. Pulmonary: Effort: Pulmonary effort is normal. Breath sounds: No wheezing or rales. Abdominal: Palpations: Abdomen is soft. Musculoskeletal: General: No tenderness. Right lower leg: No edema. Left lower leg: No edema. Comments: Short left leg with built-up shoe noted Lymphadenopathy: Cervical: No cervical adenopathy. Skin: General: Skin is warm and dry. Coloration: Skin is not jaundiced. Findings: No bruising. Neurological: Mental Status: She is alert and oriented to person, place, and time. Sensory: Sensory deficit (Monofilament and vibratory testing abnormal on the toes, feet and ankles bilaterally. Partial loss on the right knee, partial loss on the left knee.) present. Motor: No weakness. Coordination: Coordination normal. Deep Tendon Reflexes: Reflexes are normal and symmetric. Psychiatric: Mood and Affect: Mood normal. Behavior: Behavior normal. Left: Pulses Posterior Tibial: diminished Vibratory sensation absent Filament test absent Right: Pulses Posterior Tibial: diminished Vibratory sensation absent Filament test absent Meds Current Outpatient Medications: atorvastatin (LIPITOR) 80 mg tablet, Take 1 tablet (80 mg total) by mouth in the morning., Disp: 90tablet, Rfl: 1 clobetasoL (TEMOVATE) 0.05 % cream, clobetasol 0.05 % topical cream, Disp: , Rfl: clobetasoL (TEMOVATE) 0.05 % lotion, clobetasol 0.05 % lotion, Disp: , Rfl: dorzolamide-timoloL (COSOPT) 22.3-6.8 mg/mL ophthalmic solution, INSTILL 1 DROP IN THE LEFT EYE TWICE A DAY, Disp: 30 mL, Rfl: 3 DUPIXENT SYRINGE 300 mg/2 mL syringe SUBQ injection, , Disp: , Rfl: ergocalciferol (DRISDOL) 1,250 mcg (50,000 unit) capsule, Vitamin D2 1,250 mcg (50,000 unit) capsule, Disp: , Rfl: gabapentin (NEURONTIN) 300 mg capsule, TAKE 1 CAPSULE DAILY, Disp: 90 capsule, Rfl: 3 HumaLOG U-100 Insulin 100 unit/mL injection, USE 60 UNITS DAILY VIA INSULIN PUMP, Disp: 90 mL, Rfl:3 ketoconazole (NIZORAL) 2 % shampoo, Apply 1 Application topically once a week., Disp: , Rfl: xxntsbnto-R3-ycW97-algal oil (FOLTANX RF/MENTAX) 3 mg-35 mg-2 mg -90.314 mg capsule, Metanx (algal oil) 3 mg-35 mg-2 mg-90.314 mg capsule, Disp: , Rfl: LOKELMA 5 gram packet, MIX AND DRINK 1 PACKET TWO TIMES A WEEK, Disp: 50 packet, Rfl: 3 pregabalin (LYRICA) 100 mg capsule, TAKE 1 CAPSULE THREE TIMES A DAY, Disp: 90 capsule, Rfl: 2 biotin 1 mg capsule, Take by mouth., Disp: , Rfl: cetirizine (ZyrTEC) 10 mg tablet, Take by mouth., Disp: , Rfl: hydrocortisone (HYTONE) 2.5 % ointment, Apply topically 2 (two) times a day as needed., Disp: , Rfl: qwsxu-zzytj-3-mxr-rnk-dhjdbh (KRILL OIL) 709-26-91-50 mg capsule, Take by mouth., Disp: , Rfl: Lab Results Hospital Outpatient Visit on 01/12/2024 Component Date Value Ref Range Status Microalbumin urine 01/12/2024 2.0 (H) 0.0 - 1.9 mg/dL Final Urine creat 01/12/2024 45.94 mg/dL Final Alb/creat ratio 01/12/2024 43.5 (H) 0.0 - 30.0 mg/g creat Final Cholesterol 01/12/2024 186 150 - 200 mg/dL Final Triglycerides 01/12/2024 80 27 - 150 mg/dL Final HDL Cholesterol 01/12/2024 76 >39 mg/dL Final VLDL 01/12/2024 16 0 - 30 mg/dL Final LDL (calc) 01/12/2024 94 <130 mg/dL Final Cholesterol:HDL Ratio 01/12/2024 2.4 1.0 - 5.0 Final Sodium 01/12/2024 140 134 - 146 mmol/L Final Potassium, Bld 01/12/2024 4.7 3.5 - 5.0 mmol/L Final Chloride 01/12/2024 102 98 - 109 mmol/L Final CO2 01/12/2024 32 22 - 32 mmol/L Final Anion gap 01/12/2024 6 5 - 15 mmol/L Final BUN 01/12/2024 20 5 - 23 mg/dL Final Creatinine 01/12/2024 1.13 (H) 0.40 - 1.00 mg/dL Final Glucose 01/12/2024 144 (H) 65 - 99 mg/dL Final Calcium 01/12/2024 9.6 8.5 - 10.5 mg/dL Final Total Protein 01/12/2024 7.1 6.0 - 8.0 g/dL Final Albumin 01/12/2024 3.9 3.2 - 5.3 g/dL Final Alkaline Phosphatase 01/12/2024 88 39 - 130 U/L Final AST 01/12/2024 22 0 - 41 U/L Final ALT 01/12/2024 18 0 - 31 U/L Final Total bilirubin 01/12/2024 0.5 0.3 - 1.2 mg/dL Final eGFR (CKD-EPI)non-race dependent 01/12/2024 57 (L) >59 ml/min/1.73sq.m Final Hemoglobin A1C 01/12/2024 7.9 (H) 4.4 - 5.6 % Final Average glucose 01/12/2024 180 mg/dL Final Other Testing No results found. Sherrill Carlin DO., [facility]: [phone] [facility]* Encounter Date Diagnosis Assessment Notes Treatment Notes Treatment Clinical Notes Aug, Chronic kidney disea se, stage III (moderate) (ICD-10 - N18.30) She has CKD 3 due to DM. Her serum creatinine is 1.3 mg/dL. Her renal function has declined either due to the portion of CKD or hemodynamic changes. I have discussed with her the importance of good DM control to slow down the progression of disease. Her renal US showed INCREASED ECHOGENICITY OF THE KIDNEYS WHICH MAY BE DUE TO MEDICAL RENAL DISEASE. I have advised her avoid NSAID's. Aug, Type 1 diabetes danial itus with diabetic chronic kidney disease (ICD-10 - E10.22) She has type 1 insulin dependent DM. Her blood sugars are better. I have advised her to continue to work with her PCP for better DM control. Not on lisinopril due to hypotension and hyperkalemia Aug, Secondary hyperparathyroidism (ICD-10 - N25.81) MBD parameters are within the goal. I will continue the current treatment. Continue low phos diet Aug, Anemia of renal dise ase (ICD-10 - D63.1) Hemoglobin is within the goal and has adequate iron stores Aug, Hyperuricemia (ICD-1 0 - E79.0) She has hyperuricemia due to the CKD and denies any recent gout flare. Continue monitor without any medications. Aug, Hyperkalemia (ICD-10 - E87.5) She has hyperkalemia due to the CKD. Her serum potassium is within normal limit. Advised her to continue Lokelma on the day when she takes a high potassium diet. Aug, Dyslipidemia (ICD-10 - E78.5) Continue Statin. Continue follow with PCP for lipid profile and LFT monitoring [employer] Other [phone] NotePROCEDURE: XR KNEE RT 3V DATE: 03/17/2023 8:18 AM CDT COMPARISONS: None CLINICAL INDICATION: Pain of right knee joint FINDINGS: There is no evidence of fractures or other acute osseous abnormalities. There is evidence of mild to moderate patellofemoral degenerative change noted on lateral view. There is no evidence of right knee joint effusion. IMPRESSION: Probable mild to moderate patellofemoral degenerative change. Right knee radiographs show no other evidence of significant abnormalities. Electronically authenticated by: IVORY KING Date: 2023-03-17 10:50[facility]04-20-2023 NotePROCEDURE: XR HIP LT 2 3V W PELVIS DATE: 03/17/2023 8:18 AM CDT COMPARISONS: None CLINICAL INDICATION: Pain in right hip joint Requisition states: Left hip pain FINDINGS: There is no evidence of fractures or other osseous abnormalities. No evidence of significant degenerative changes of the hips. There is slight spurring of the acetabula bilaterally which could possibly represent minimal developing hip degenerative changes. IMPRESSION: Findings as discussed above. . Electronically authenticated by: IVORY KING Date: 2023-03-17 10:48[facility]10-25-2022 Evaluation note* Encounter Date Diagnosis Assessment Notes Treatment Notes Treatment Clinical Notes Aug, Chronic kidney disea se, stage III (moderate) (ICD-10 - N18.30) She has CKD 3 due to DM. Her serum creatinine is 1.2 mg/dL. I have discussed with her the importance of good DM control to slow down the progression of disease. Her renal US showed INCREASED ECHOGENICITY OF THE KIDNEYS WHICH MAY BE DUE TO MEDICAL RENAL DISEASE. I have advised her avoid NSAID's. Aug, Type 1 diabetes danial itus with diabetic chronic kidney disease (ICD-10 - E10.22) She has type 1 insulin dependent DM. Her blood sugars are better. I have advised her to continue to work with her PCP for better DM control. Not on lisinopril due to hypotension and hyperkalemia Aug, Secondary hyperparathyroidism (ICD-10 - N25.81) MBD parameters are within the goal. I will continue the current treatment. Continue low phos diet Aug, Hyperkalemia (ICD-10 - E87.5) Low Potassium diet was advised and information for low potassium diet was given Aug, Anemia of renal dise ase (ICD-10 - D63.1) Hemoglobin within the goal. We will check iron studies. Advised her to do the GI work-up including a Cologuard or colonoscopy [employer] Other Evaluation noteNo assessment information available [facility] Work Phone: Evaluation note* Author Katelyn Echavarria [facility] Authored April 03, 2024 11:45a m Assessment: Highest weight: 170 lbs Start weight: 171.1 lbs. Starting Date: 04-03-2024. 1. Abnormal weight gain 2. Obesity-the patient will treat with long-term lifestyle changes of improved nutrition, increased exercise and activity, stress reduction, adequate sleep and behavioral modification versus short-term dieting. [ ] 3. [ ] 4. [ ] 5. [ ] 6. [ ] 7. [ ] 8. [ ] 9. [ ] 10. [ ] 11. [ ] Follow up with me in 6 weeks. New labs needed: [TSH, cholesterol profile, and CMP] The patient was instructed to consider logging all foods and caloric beverages. I highly recommended minimizing or stopping caloric beverages including alcohol. The importance of preplanning, shopping at the edge of the store, decreasing unhealthy food cues and environmental control stressed. I recommend packing snacks and meals when out of the home. Remove trigger/unhealthy foods if possible from the home. No macronutrient is completely restricted. We discussed the addictive nature and unhealthy biological changes that occur with ultra processed food. We discussed the brain and peripheral biological changes with obesity that make it a chronic disease. Importance of cooking most food items from scratch discussed. No skipping any meals. Avoid added sugar, refined starches, and added fats. I highly recommended preference for whole foods/real foods. Foods from the farm, not from the factory. The plate method discussed and handout given. Lean unprocessed protein with each meal and each snack to help control appetite, decrease cravings and lessen muscle loss with weight loss advised. Consider use of a protein shake or protein bar instead of missing a meal. The patient will try to get at least 5 or more servings of low carbohydrate veggies/salads daily. Recommend regular follow-up with our registered dietitian. Benefits of regular exercise including cardio and resistance training discussed and recommended as appropriate for the patient. Slowly increase activity. Our exercise program was recommended with our bid writer/obesity exercise group. Handout given. Our free weekly group support/food triggers program was highly recommended to help with long-term behavioral change and support. Handout given. The patient must start healthy behavioral changes. The patient was instructed on good sleep hygiene and on the importance of adequate sleep. Circadian rhythm and the importance of mealtime discussed. I recommended stress reduction. Medication addition and subtraction options discussed. Risks and benefits of prescribed meds discussed. Initial [id number]-[id number] interview/evaluation. The patient was counseled in detail on the options for weight loss in an individual setting. [ ] minutes was spent caring for the patient, counseling/educating patient on the options for the treatment of obesity and related healthcare issues. The program's treatment goals were reviewed with the patient. Each aspect of the program was discussed with the patient. [facility] Work Phone: Evaluation note* Diagnosis Other atopic dermatitis Other seborrheic dermatitis EIC (epidermal inclusion cyst) Sebaceous cyst [facility] Diagnosis Spinal stenosis of lumbar region with neurogenic claudication- Primary Osteoarthritis of right patellofemoral joint Mixed hyperlipidemia [facility] Diagnosis Diabetic peripheral neuropathy (CMS-HCC) Type II or unspecified type diabetes mellitus with neurological manifestations, not stated as uncontrolled [facility] Diagnosis Chronic hyperkalemia Hyperpotassemia documented [facility]* Diagnosis Diabetic peripheral neuropathy ([facility]) Type II or unspecified type diabetes mellitus with neurological manifestations, not stated as uncontrolled [facility]* Diagnosis 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 ([facility])- Primary Mixed hyperlipidemia Stage 3a chronic kidney disease ([facility]) documented [facility] encounter [facility]* Diagnosis Primary open angle glaucoma of left eye, indeterminate stage- Primary Pseudophakia of left eye Lens replaced by other means 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 ([facility]) Anophthalmos of right eye Unspecified clinical anophthalmos Primary open angle glaucoma of left eye, indeterminate stage Primary open angle glaucoma of left eye, indeterminate stage documented [facility]* Diagnosis Primary open angle glaucoma of left eye, indeterminate stage documented [facility]* Diagnosis Diabetic peripheral neuropathy ([facility]) Type II or unspecified type diabetes mellitus with neurological manifestations, not stated as uncontrolled documented [facility] encounter [facility]* Diagnosis Mixed hyperlipidemia [facility]* Diagnosis 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 ([facility])- Primary Anophthalmos of right eye Unspecified clinical anophthalmos Primary open angle glaucoma of left eye, indeterminate stage 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 ([facility]) documented [facility] encounter [facility]* Diagnosis 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 ([facility]) documented [facility] encounter [facility]* Diagnosis Mixed hyperlipidemia [facility] N[facility]ative - Reported* Type Description Date Medical History diabetes mellitus Medical History hyperlipidemia Medical History depression Medical History migraine headaches Medical History diabetic retinopathy Medical History glaucoma Medical History hypertension Medical History deep vein thrombosis Medical History allergic rhinitis Medical History COPD Medical History reflux Medical History kidney disease, stage 3 Surgical History cholecystectomy Surgical History eye surgery Surgical History bladder sling Surgical History c-seciton Surgical History carpal tunnel repair Surgical History Great,2nd and 3rd toe amputated on right foot Surgical History right eye removal Surgical History left eye cataract Hospitalization History As above [employer] Other InstructionsNot on filedocumented in this encounter [facility] this [facility] filedocumented in this encounter [facility] filedocumented in this encounter [facility] filedocumented in this encounter [facility] on filedocumented in this encounter [facility] on filedocumented in this encounter [facility]* Attachments The following attachments cannot be sent through Care Everywhere. * Open-angle glaucoma (Chinese) [facility] Advance Directives Advance Directive Response Recorded Date/ Time Advance Directives No September 05, 2017 8:32am Advance Directive Response Recorded Date/ Time Advance Directives No September 05, 2017 9:32am Chief Complaint and Reason for Visit Chief Complaint E10.42 Chief Complaint See order Chief Complaint N18.30 E10.22 N25.81 E87.5 D6.1 Chief Complaint [facility] Chief Complaint [facility] Amb Documentation Amb Documentation Amb Documentation Amb Documentation Amb Documentation Diabetes ED and DL will f/u with TKM per DC Chief Complaint [facility] Amb Documentation Amb Documentation Amb Documentation Amb Documentation Amb Documentation Diabetes ED and DL will f/u with TKM per DC Type 1 per DC see TKM Reason for Visit BMI 29.0-29.9,adult Dietary counseling and surveillance Hyperlipidemia Insulin long-term use Insulin pump titration 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 Chief Complaint [facility] Amb Documentation Amb Documentation Amb Documentation Amb Documentation Amb Documentation Diabetes ED and DL will f/u with TKM per DC Type 1 per DC see TKM anti inflammatory eating Reason for Visit BMI 29.0-29.9,adult Dietary counseling and surveillance Hyperlipidemia Insulin long-term use Insulin pump titration 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 Chief Complaint [facility] Amb Documentation Amb Documentation Amb Documentation Amb Documentation Amb Documentation Diabetes ED and DL will f/u with TKM per DC Type 1 per DC see TKM anti inflammatory eating e10.22 n18.31 Reason for Visit BMI 29.0-29.9,adult Dietary counseling and surveillance Hyperlipidemia Insulin long-term use Insulin pump titration 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 Chief Complaint [facility] Amb Documentation Amb Documentation Amb Documentation Amb Documentation Amb Documentation Diabetes ED and DL will f/u with TKM per DC Type 1 per DC see TKM anti inflammatory eating e10.22 n18.31 Reason for Visit Dietary counseling a nd surveillance Hyperlipidemia Insulin long-term use Insulin pump titration 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 Chronic kidney disease, stage III (moderate) Hyperlipidemia Overweight (BMI 25.0-29.9) 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 Chief Complaint Amb Documentation Amb Documentation Amb Documentation Amb Documentation Amb Documentation Diabetes ED and DL will f/u with TKM per DC Type 1 per DC see TKM anti inflammatory eating e10.[address] 1st after class Reason for Visit Dietary counseling a nd surveillance Hyperlipidemia Insulin long-term use Insulin pump titration 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9) Chronic kidney disease, stage III (moderate) Hyperlipidemia Secondary hyperparathyroidism 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 Chief Complaint Admit Date N18.30 E10.22 N25.81 D63.1 E79.0 E87.5 O ctober 2023 10:08am RENAL 1 year follow up September 25 8:48am Reason for Visit Admit Date Hyperlipidemia August 28, 2024 9: 46am Overweight (BMI 25.0-29.9) August 28, 2024 9:46am Chronic kidney disease, stage III (moder ate) September 25, 2024 8:48am Hyperlipidemia September 25, 2024 8 :48am Secondary hyperparathyroidism September 252023 8:48am Type 1 diabetes mellitus with chronic ki dney disease September 25, 2024 8:48am Chief Complaint Admit Date DM TKM f/u November 14, 2024 11:17am Reason for Visit Admit Date BMI 27.0-27.9,adult November 14, 2024 11:17am Dietary counseling and surveillance Dece mber 2023 11:17am Hyperlipidemia November 14, 2024 11:17am Insulin long-term use November 14 11:17am Insulin pump titration November 14 11:17am Type 1 diabetes mellitus with chronic ki dney disease November 14, 2024 11:17am Assessments No Assessments Information Available Summary Purpose Family History Relationship Condition Age at Onset Recorded Date/T madi father Malignant neoplasm Unknown Not Specified Heart disease Unknown Hypertension Unknown Relationship Condition Age at Onset Recorded Date/T madi father Malignant neoplasm Unknown mother Heart disease Unknown Hypertension Unknown Additional Source Comments INFORMATION SOURCE (unrecogn ized section and content) DATE CREATED AUTHOR 11/05/2021 [facility] DATE CREATED AUTHOR AUTHOR'S ORGANIZ ATION 03/21/2023 [facility] DATE CREATED AUTHOR AUTHOR'S ORGANIZ ATION 01/14/2024 [facility] DATE CREATED AUTHOR AUTHOR'S ORGANIZ ATION 09/29/2024 [facility] DATE CREATED AUTHOR AUTHOR'S ORGANIZ ATION 10/02/2024 [facility] EPIC DATE CREATED AUTHOR AUTHOR'S ORGANIZ ATION 11/21/2024 [facility] Care Teams (unrecognized sec tion and content) Team Status: Active Member Role Status Dates Sherrill Carlin DO Primary Care Provider Active Team Status: Inactive Member Role Status Dates Sherrill Carlin DO Primary Care Provider Active Sta rt: June 27, 2024 End: June 27, 2024 Apolinar Kelly MD Attending Provider Active Start: June 27, 2024 End: June 27, 2024 Team Status: Inactive Member Role Status Dates Sherrill Carlin DO Primary Care Provider Active Sta rt: July 03, 2024 End: July 03, 2024 ANDREY Mcginnis Attending Provider Active Start: July 03, 2024 End: July 03, 2024 Team Status: Inactive Member Role Status Dates Sherrill Carlin DO Primary Care Provider Active Sta rt: August 28, 2024 End: August 28, 2024 Apolinar Kelly MD Attending Provider Active Start: August 28, 2024 End: August 28, 2024 Team Status: Active Member Role Status Ashleigh Carlin DO Primary Care Provider Active Sta rt: April 11, 2024 Acacia Scott Attending Provider Active Start: 2023 Team Status: Inactive Member Role Status Ashleigh Sherrill OdenDO sarah Primary Care Provider Active Sta rt: April 12, 2024 End: April 12, 2024 Kristofer Castro RN Attending Provider Active St art: April 12, 2024 End: April 12, 2024 Team Status: Inactive Member Role Status Dates Sherrill OdenDO sarah Primary Care Provider Active Sta rt: April 25, 2024 End: April 25, 2024 ANDREY Mcginnis Attending Provider Active Start: April 25, 2024 End: April 25, 2024 Team Status: Inactive Member Role Status Ashleigh Mccartney CecilleDO sarah Primary Care Provider Active Sta rt: April 30, 2024 End: April 30, 2024 Rodger Avila APRN Attending Provider Active Start: April 30, 2024 End: April 30, 2024 Team Status: Inactive Member Role Status Ashleigh Sherrill OdenDO sarah Primary Care Provider Active Sta rt: May 02, 2024 End: May 02, 2024 ANDREY Mcginnis Attending Provider Active Start: May 02, 2024 End: May 02, 2024 Team Status: Inactive Member Role Status Ashleigh Sherrill OdenDO sarah Primary Care Provider Active Sta rt: May 14, 2024 End: May 14, 2024 Rodger Avila APRN Attending Provider Active Start: May 14, 2024 End: May 14, 2024 Team Status: Inactive Member Role Status Ashleigh Mccartney CecilleDO sarah Primary Care Provider Active Sta rt: May 15, 2024 End: May 15, 2024 Apolinar Kelly MD Attending Provider Active Start: May 15, 2024 End: May 15, 2024 Team Status: Inactive Member Role Status Ashleigh Carlin DO Primary Care Provider Active Sta rt: April 03, 2024 End: April 03, 2024 Apolinar Kelly MD Attending Provider Active Start: April 03, 2024 End: April 03, 2024 Team Status: Active Member Role Status Ashleigh Carlin DO Primary Care Provide r, Attending Provider Active Start: January 12, 2024 Team Status: Inactive Member Role Status Dates Sherrill OdenDO sarah Primary Care Provider, Attending Provi imtiaz Active Team Status: Inactive Member Role Status Dates Sherrill OdenDO sarah Primary Care Provider Active Buddy Jean MD Attending Provider Active Team Status: Inactive Member Role Status Dates Sherrill Carlin Primary Care Provider Active Sta rt: September 21, 2024 End: September 21, 2024 Buddy Jean MD Attending Provider Active Start : September 21, 2024 End: September 21, 2024 Team Status: Inactive Member Role Status Dates Sherrill Carlin Primary Care Provider Active Sta rt: September 25, 2024 End: September 25, 2024 Buddy Jean MD Attending Provider Active Start : September 25, 2024 End: September 25, 2024 Team Status: Inactive Member Role Status Dates Sherrill Carlin DO Primary Care Provider Active Sta rt: October 09, 2024 End: October 09, 2024 Apolinar Kelly MD Attending Provider Active Start: October 09, 2024 End: October 09, 2024 Beach Expert Relationship Specialty Start Date End Date Sherrill CarlinDO [address] [place] [address] PCP - General Internal Medicine 08/24/21 Beach Expert Relationship Specialty Start Date End Date Sherrill Carlin DO [address] [place] [address] PCP - General Internal Medicine 08/24/21 Beach Expert Relationship Specialty Start Date End Date Sherrill Carlin DO [address] [place] [address] PCP - General Internal Medicine 08/24/21 Beach Expert Relationship Specialty Start Date End Date Sherrill Carlin [address] [place] [address] PCP - General Internal Medicine 08/24/21 Beach Expert Relationship Specialty Start Date End Date Sherrill CarlniDO [address] [place] [address] PCP - General Internal Medicine 08/24/21 Beach Expert Relationship Specialty Start Date End Date Sherrill CarlinDO [address] [place] [address] PCP - General Internal Medicine 08/24/21 Beach Expert Relationship Specialty Start Date End Date CecilleSherrill smithDO [address] [place] [address] PCP - General Internal Medicine 08/24/21 Beach Expert Relationship Specialty Start Date End Date CecilleSherrill smithDO [address] [place] [address] PCP - General Internal Medicine 08/24/21 Beach Expert Relationship Specialty Start Date End Date CecilleSherrill smithDO [address] [place] [address] PCP - General Internal Medicine 08/24/21 Team Status: Inactive Member Role Status Dates Sherrill Carlin DO Primary Care Provider Active Sta rt: November 14, 2024 End: November 14, 2024 Rodger Avila APRN Attending Provider Active Start: November 14, 2024 End: November 14, 2024 Team Status: Inactive Member Role Status Dates Sherrill Carlin DO Primary Care Provider Active Sta rt: January 29, 2025 End: January 29, 2025 Apolinar Kelly MD Attending Provider Active Start: January 29, 2025 End: January 29, 2025 Goals (unrecognized section and content) Goals may be documented in a n alternate sectionGoals may be documented in an alternate sectionNo InformationGoals may be documented in an alternate sectionNo InformationGoals may be documented in an alternate sectionGoals may be documented in an alternate sectionGoals may be documented in an alternate sectionGoals may be documented in an alternate sectionGoals may be documented in an alternate sectionGoals may be documented in an alternate sectionGoals may be documented in an alternate sectionGoals may be documented in an alternate sectionGoals may be documented in an alternate sectionGoals may be documented in an alternate sectionGoals may be documented in an alternate sectionGoals may be documented in an alternate sectionNot on filedocumented as of this encounterNot on filedocumented as of this encounterNot on filedocumented as of this encounterNot on filedocumented as of this encounterNot on filedocumented as of this encounterNot on filedocumented as of this encounterNot on filedocumented as of this encounterNot on filedocumented as of this encounterNot on filedocumented as of this encounterNot on filedocumented as of this encounterNot on filedocumented as of this encounterNot on filedocumented as of this encounterNot on filedocumented as of this encounterNot on filedocumented as of this encounterNot on filedocumented as of this encounterNot on filedocumented as of this encounterGoals may be documented in an alternate section REASON FOR VISIT (unrecogniz ed section and content) Reason Comments Follow-up Suspicious Skin Lesion Reason Comments Back Pain Knee Pain Reason Comments Med Refill Reason Comments Diabetes Back Pain Reason Onset Date Comments Preventative Screening 01/30/2024 Reason Comments Glaucoma Reason Comments Eye Exam Reason Onset Date Comments Med Refill 10/29/2024 FOR RECORDS PERTAINING TO PATIENTS WHO ARE OR HAVE BEEN ENROLLED IN A CHEMICAL DEPENDENCY/SUBSTANCEABUSE PROGRAM, SOME INFORMATION MAY BE OMITTED. This clinical summary was aggregated from multiple sources. Caution should be exercised in using it in the provision of clinical care. This summary normalizes information from multiple sources, and as a consequence, information in this document may materially change the coding, format and clinical context of patient data. In addition, data may be omitted in some cases. CLINICAL DECISIONS SHOULD BE BASED ON THE PRIMARY CLINICAL RECORDS. [employer] [facility]. provides no warranty or guarantee of the accuracy or completeness of information in this document.
== END 2025-02-06 15:11 | disposition home or self-care (01) ==
LOC: WC 15:10
PROVIDERS: PCP Internal Medicine; Visit Provider Physician Assistant
DX: E10.621 Type 1 diabetes mellitus with foot ulcer (principal); L97.521 Non-pressure chronic ulcer of other part of left foot limited to breakdown of skin
CPT/HCPCS: G0463

== ENCOUNTER 2025-05-08 13:51 | Outpatient (OUT) | payer OTHER, SELFPAY ==
--- OUTSIDE RECORDS SUMMARY | 2025-05-01 07:17 | XMS_ITS | Continuity of Care Document ---
Author Organization [facility] Address [address] [place] [address] Phone Support Name Relationship Address Phone Wil Dahl Emergency Contact [address] [place] [address] Newton Verdugo DO Personal Relationship [address] [facility] [place] [address] Rodger Avila APRN Personal Relationship [address] [facility] [place] [place] [address] Apolinar Kelly MD Personal Relationship [address] [place] [address] Care Teams Patient Care Team Team Status: Active Member Role Status Ashleigh Verdugo DO Primary Care Provider Active Visit Care Team Team Status: Inactive Member Role Status Ashleigh Verdugo DO Primary Care Provider Active Sta rt: February 19, 2025 End: February 19, 2025 Rodger Avila APRN Attending Provider Active Start: February 19, 2025 End: February 19, 2025 Patient Care Team Team Status: Inactive Member Role Status Ashleigh Verdugo DO Primary Care Provider Active Sta rt: May 01, 2025 End: May 01, 2025 Apolinar Kelly MD Attending Provider Active Start: May 01, 2025 End: May 01, 2025 Chief Complaint and Reason for Visit Chief Complaint Admit Date pump February 19, 2025 1:1 8pm 3 month May 01, 2025 10:32 am Reason for Visit Admit Date BMI 27.0-27.9,adult February 19, 2025 1:1 8pm Dietary counseling and surveillance Mino 2024 1:18pm Hyperlipidemia February 19, 2025 1:1 8pm Insulin long-term use February 19, 2025 1 :18pm Insulin pump titration February 19, 2025 1:18pm Type 1 diabetes mellitus with chronic ki dney disease February 19, 2025 1:18pm Allergies, Adverse Reactions, Alerts Allergen Type Severity Reaction Last Updated Verified Status morphine Allergy Severe Vomiting May 01, 2025 10:54am Yes Active shellfish derived Allergy Severe dizziness May 01, 2025 10:54 am Yes Active Social History Smoking Status Status Start Date End Date Date of Observa tion Never smoked tobacco (finding) April 30, 2024 3:09pm Observation Status Observation Response Date of Response Patient Sex Female May 01, 2025 1 1:16am Assigned Sex Female 1970 Family History Relationship Condition Age at Onset Recorded Date/T madi father Malignant neoplasm Unknown mother Heart disease Unknown Hypertension Unknown Problems Active Problems Medical Problem Onset Date Status Insulin long-term use Active Type 1 diabetes mellitus with chronic kidney dis ease Active Secondary hyperparathyroidism Ac tive Overweight (BMI 25.0-29.9) Activ e Dietary counseling and surveillance Active Chronic kidney disease, stage III (moderate) Active Hyperlipidemia Active Peripheral neuropathy Active BMI 27.0-27.9,adult Active Insulin pump titration Active Hyperkalemia Active Medications Medication Status Dose Units Route Directions Qty Days St art Date Stop Date End Date Instructions Pregabalin 100 mg capsule Discont inued 100 MG PO Three times daily 270 90 May 28, 2024 12:09p m June 12, 2024 1:04p m Pregabalin 100 mg capsule Discont inued 100 MG PO Three times daily 270 90 June 12, 2024 1:04pm Novua ry 2024 1:25p m Insulin Lispro (Humalog U-100 Insulin) 100 unit/mL solution Discont inued 0 SUBCUT .insulin pump 30 Novemb er 2023 9:48am Decem rosendo 2023 1:01p m 30 units SQ per day via insulin pump Pregabalin 100 mg capsule Active 100 MG PO Three times daily 270 90 Novua y 2024 1:24pm Dorzolamide- Timolol 22.3-6.8 mg/mL drops Active 1 DROPS OPHTHA LMIC Once Octobe r 2023 12:00a m Ketoconazole 2 % shampoo Active TOPICA L Octobe r 2023 12:00a m Fluocinonide 0.05 % solution Active TOPICA L Octobe r 2023 12:00a m Atorvastatin 80 mg tablet Active 80 MG PO Daily at bedtime Octobe r 2023 12:00a m Gabapentin 100 mg capsule Discont inued 100 MG PO Daily Octobe r 2023 12:00a m Octob er 2023 8:59a m Gabapentin 100 mg capsule Active 100 MG PO Daily as needed Octobe r 2023 8:58am Sodium Zirconium Cyclosilicat e 10 gram powder in packet Discont inued 10 GM PO as needed April 03, 2024 12:00a m June 27, 2024 10:10 am Dupilumab 300 mg/2 mL syringe Discont inued 300 MG SUBCUT April 03, 2024 12:00a m June 27, 2024 10:11 am Cholecalcife rol (Vitamin D3) 50 mcg (2,000 unit) tablet Active 50 MCG PO Daily April 03, 2024 12:00a m Pregabalin 100 mg capsule Discont inued 100 MG PO Three times daily April 03, 2024 12:00a m May 28, 2024 12:37 pm ) Insulin Lispro (Humalog U-100 Insulin) 100 unit/mL solution Discont inued 1 slidin g scale dose SUBCUT .COMPLEX April 03, 2024 12:00a m Octob er 2023 8:57a m ; Ascorbic Acid (Vitamin C) 500 mg tablet,chewa ble Active 500 MG PO Daily as needed April 03, 2024 12:00a m Cetirizine 10 mg tablet Active 10 MG PO Daily April 03, 2024 12:00a m Atorvastatin 40 mg tablet Discont inued 80 MG PO Daily April 03, 2024 12:00a m Octob er 2023 8:56a m Biotin 10 mg tablet Active 10 MG PO Daily April 03, 2024 12:00a m Krill Oil 500 mg capsule Discont inued MG PO April 03, 2024 12:00a m Octob er 2023 8:57a m Multivitamin tablet Active 1 TAB PO Daily April 03, 2024 12:00a m Saccharomyce s Boulardii (Daily Probiotic (S. Boulardii)) 250 mg capsule Discont inued 250 MG PO Twice daily April 03, 2024 12:00a m June 27, 2024 10:09 am Apple Cider Vinegar 500 mg tablet Discont inued 0 PO .COMPLEX April 03, 2024 12:00a m June 27, 2024 10:08 am orally tid; Dupilumab 300 mg/2 mL syringe Discont inued 300 MG SUBCUT June 27, 2024 10:10a m Octob er 2023 8:57a m Dupixent Krill Oil 500 mg capsule Active 500 MG PO daily Octobe r 2023 8:54am Dupilumab 300 mg/2 mL syringe Active 300 MG SUBCUT EVERY 2 WEEKS Octobe r 2023 8:56am Dupixent Insulin Lispro (Humalog U-100 Insulin) 100 unit/mL solution Discont inued 1 slidin g scale dose SUBCUT .insulin pump Octobe r 2023 8:57am Novem 2023 9:52a m Semaglutide 0.25 mg or 0.5 mg (2 mg/3 mL) pen injector Discont inued 0.25 MG SUBCUT every week April 30, 2024 12:00a m Octob er 2023 10:27 am [facility] Semaglutide Base 0.3 mg/0.25 mL Discont inued 0.25 ML SUBCUT every week May 15, 2024 12:00a m June 27, 2024 10:08 am [facility] Pre-filled Syringes using Semaglutide Base. Dispense 1 mL = (Four 0.25 mL pre-filled syringes) Insulin Lispro (Humalog U-100 Insulin) 100 unit/mL solution Discont inued 0 SUBCUT .insulin pump 50 [facility] er 2023 1:01pm Dece rosendo 2023 1:02p m 30 units SQ per day via insulin pump Insulin Lispro (Humalog U-100 Insulin) 100 unit/mL solution Active 0 SUBCUT .insulin pump 50 [facility] er 2023 1:02pm 50 units SQ per day via insulin pump Relevant Diagnostic Tests and/or Laboratory Data Laboratory Results Test Date/Time Result Interpretation Reference Range Result Comment Performing Site Bedside Hemoglobin A1c February 19, 2025 1:40pm 6.9 % Bedside Glucose February 19, 2025 1:43pm 206 Vital Signs Vital Reading Result Reference Range Collection Date/Time Height 63 [in_i] February 19 1:36pm Weight 71.50 kg February 19 1:36pm Heart Rate 83 /min 60-100 February 19 1:36pm Respiratory rate 16 /min 12-February 19, 2025 1:36pm Oxygen saturation by Pulse oximetry 98 % 95-100 February 19, 2025 1:3 6pm BP Systolic 114 mm[Hg] 100-140 February 19 1:36pm BP Diastolic 70 mm[Hg] 60-100 February 19 1:36pm BMI (Body Mass Index) 27.9 kg/m2 February 19, 2025 1:36pm Height 63 [in_i] May 01, 2025 10:44am Weight 70.90 kg May 01, 2025 10:44am Heart Rate 81 /min 60-100 May 01, 2025 10:44am Respiratory rate 18 /min -May 01, 025 10:44am Oxygen saturation by Pulse oximetry 99 % 95-100 May 01, 2025 10:44 am BP Systolic 125 mm[Hg] 100-140 May 01, 2025 10:44am BP Diastolic 76 mm[Hg] 60-100 May 01, 2025 10:44am BMI (Body Mass Index) 27.6 kg/m2 May 012024 10:44am Advance Directives Advance Directive Response Recorded Date/ Time Advance Directives No September 05, 2017 9:32am Insurance Providers Guarantor Darrian De Leon Address [address] [place] [id number] Contact Info. Home Phone: Payer Policy Id Coverage Id Subscriber's Name Subscriber Id Effective Date Expiration Date [facility] [id number] Wil Dahl [id number] Encounters Encounter Location(s) Arrival/Admit Date Discharge/Depart Date Provider(s) Departed Physician/Prov ider Office Visit [facility] February 19, 2025 1:18pm February 19, 2025 2:17pm KIMBERLY Le Departed Physician/Prov ider Office Visit [facility] May 01, 2025 10:32am May 01, 2025 11:15am Apolinar Kelly MD Recent Diagnosis Onset Date Admit Date BMI 27.0-27.9,adult February 19, 2025 1:18pm Dietary counseling and surveillance February 19, 2025 1:18pm Hyperlipidemia February 19, 2025 1:18pm Insulin long-term use January 1:18pm Insulin pump titration January 1:18pm Type 1 diabetes mellitus wit h chronic kidney disease February 19, 2025 1:18pm Assessments Author Katelyn E[facility] Authored May 01, 2025 11:02 am Highest weight: 170 lbs. She is down 13.7 lbs . Start weight: 171.1 lbs. She is down 14.7 lbs. today with a weight of 156.3 lbs. she is up 1.8bs. since last visit was 01/29/2025. Starting Date: 04-03-2024. 1. Abnormal weight gain 2. Obesity- improved with an almost 10% weight loss since starting our program and eating much healthier [employer]/following the plate method. We had a long discussion about adding more exercise slowly and safely, that would be awesome for her health and may help prevent further weight regain. She would watch her blood sugar closely with exercise and may have to place her pump in exercise mode. She was initially taking a GLP-1 agonist to help with appetite control and weight management and did fine on the 0.3 mg dose, but then developed nausea on the 0.6 mg dose and we are trying without medication. She we will continue close follow-up of her type 1 diabetes with our diabetic department and seeing her diabetic gate attendant Mariama. And her A1c is dropped from 7.9 down to 6.9 with less insulin and no increase in lows. She is now following the plate method and has been restricting her even complex starches but is still eating lots of vegetables and some low carbohydrate foods. She should closely monitor with her CGM, learning from her numbers, with following the plate method. She must be careful with activity/exercise that she seems to have some gait issues with neuropathy. She will continue to work on good sleep hygiene. She should try to keep binge food/trigger [...] and behavioral modification versus short-term dieting. Her [place] was 8 with starting the program. She notes she is only an occasional snorer. She denies any known cardiac or lung issues but does note she gets some [place]. I recommend follow-up with her PCP for cardiac evaluation/clearance. 3. Type 1 diabetes mellitus-Improved with A1c dropping from 7.9 now down to 6.9 with our program. She will continue to treat with better diet/healthy lifestyle change and continued follow-up with our diabetic nurse practitioner/diabetic education for pump and CGM management. 4. Hypercholesterolemia-LDL almost at goal now at 76 on atorvastatin 80 mg. She has normal triglycerides and a good HDL. She should continue to treat with decreasing the bad fats, added fats, increase activity and exercise and achieve long-term weight loss. Her triglycerides and HDL are good. 5. Mild CKD 3 with positive microalbuminuria 6. Diabetic neuropathy 7. History of chronic constipation 8. Status post cholecystectomy Follow up with me in 12 weeks. New labs needed: Up-to-date. She should continue regular lab work with her PCP and with our diabetic nurse practitioner for type 1 diabetes. Plan of Treatment Author Rodger Avila [facility] Authored February 19, 2025 2:2 3pm Type 1 diabetes mellitus Clinical Notes: 1. Controlled, a Type 1 diabetes with A1c of 6.9% 2. Blood glucose levels improved. According to guardian cgm download 02/06- 02/19/25: AVG SG 152. >250-2%, >180-19%, 70-180-79%, <70-0%, <54-0%. CV 24.8%. GMI 7%. Reviewed download w/ pt, no incidence of hypoglycemia. Glucose above target postprandial from late bolusing. Recommend modifying icr- see below. Recommend prebolus 15 minutes ac for improved postprandial glycemia. 3. Patient is alert, oriented and receptive to making changes or counseling Notes: Seen for an assessment of current glucose pattern, changes in treatment plan, time was spent counseling and coordination of care related to diabetes, risks, and benefits of treatment, medications, and side effects. TOPICS REVIEWED: 1. Time was spent reviewing: a. Basic concepts of diabetes, progressive beta cell , concepts of basal/bolus/corrective insulin requirements. Basal: The goal is fasting blood glucose of 90-130mg. If fasting blood glucose starts to run under 100mg 3x's/ week, decrease dose by 10%. Bolus: The goal is to hold the blood glucose level steady meal to meal. If pt. is going to have increased physical activity after a meal, decrease the schedule meal dose prior to the activity by 30-50%. If pt. skips a meal do not take this dose. Correction: The goal is to correct an elevated glucose back into the 100-150mg range b. Nutrition: Concepts of healthy diet reviewed, encouraged to decrease saturated fat in diet and increase non-starchy vegetables and fruits in diet. BMI: Pt. needs to select one small change to decrease caloric intake or increase physical activity to help decrease weight. c. Correct treatment of hypoglycemia, carry a glucose source at all times on your person, in vehicles, and at bedside. Can use glucose tablets/4, four ounces of pop or juice equal to 15 G of carbohydrate. Blood glucose should be 100 mg/dl or higher when driving. d. ADA glucose goals for age and medical complexity reviewed e. Patient questions addressed 2. Activity/exercise: Encouraged to start any form of physical activity. Start low level and increase slowly to a minimal goal of 150 minutes/week. Limit activity to what is allowed by other issues such as cardiac, pulmonary or orthopedic restrictions. 3. Standards of care: Reminded to have an annual dilated eye exam, A1C every 3 months, urine testing for microalbumin once/year, check feet daily and report any cuts or sores that do not appear to be healing. 4. Meter: Plan to check blood glucose: Please check blood glucose levels 4 times/day. Back to back meals reveal effectiveness of bolus dosing. 5. [facility]. Contact office if any issues or concerns with patterns of hypoglycemia, hyperglycemia, or diabetes medication issues. 6. Prescriptions: [facility]-None at this time. DME: [facility]-None at this time. Sample lantus/pen needles given for back up if off insulin pump. 7. Prescriptions will not be filled unless you are compliant with follow up appointments or have a follow up appointment scheduled as ordered by your provider. Refills should be requested at the time of your visit. humalog 40 units/day Medtronic 780 insulin pump guardian cgm Basal MN 0.4 changed to 0.45 units/hr (TBI 10.8 units/day) ICR 1:24 ISF 1:78 Target 99/111 per pt Active insulin 2 hrs Bolus wizard turned on 05/21 ldl 76- on statin; managed by pcp 2024 ADA guidelines- people with Diabetes age 40-75 at higher CV risk including those with one or more additional ASCVD risk factors, high intensity statin therapy recommended to reduce ldl by >50% of baseline and to obtain goal ldl <70 2024 ADA guidelines- people with Diabetes age 40-75 moderate-intensity statin therapy in those without ASCVD risk factors see above see above Future Tests Future scheduled test information is unavailable Pending Tests Test Name Ordered Date Scheduled Date Comprehensive Metabolic Panel February 19, 2025 1 :28pm 2 Months Future Visits Future appointment information is unavailable Referrals to Other Providers Referral information is unavailable Future Procedures Procedure Name Ordered Date Scheduled Date Lipid Panel February 19, 2025 1:28pm 2 Months MicroAlb Creat Ratio,U February 19, 2025 1:28pm 2 Months Thyroid Stim Hormone w/Rflx February 19, 2025 1:2 8pm 2 Months Future Medications Future medication information is unavailable Patient Instructions Instruction Admit Date Diabetes and diet February 19, 2025 1:1 8pm
--- OUTSIDE RECORDS SUMMARY | 2025-05-08 13:53 | XMS_ITS | Patient Health Record ---
Author Organization [facility] [place] Address [address] [place] [address] Care Team Providers Care Medical Assistant Instructor Name Role Phone Newton Verdugo DO Primary Care Provider Unavailabl e Reason For Referral No Information Problems Problem Type SNOMED Code ICD Code Onset Dates Problem Status W/U Status Risk Notes Problem Foot ulcer due to type 1 diabetes mellitus (4560684366749 09) Type 1 diabetes mellitus with foot ulcer (E10.621) Active confirmed Problem Foot ulcer due to type 2 diabetes mellitus (9477904020129 ) Type 2 diabetes mellitus with foot ulcer (E11.621) Active confirmed Problem Chronic ulcer of great toe of left foot, limited to breakdown of skin (L97.521) Active confirmed Plan Of Treatment No Information Insurance Providers Payer Name Payer Address Payer Phone Subscriber Number Group Number Insured Name Patient Relationship to Insured Coverage Start Date Coverage End Date [employer]MO [employer] [address] [place] [address] [id number] Wil Dahl Spouse - patient is the spouse of the insured 8
--- OUTSIDE RECORDS SUMMARY | 2025-05-08 13:53 | XMS_ITS | Clinical Summary ---
Author Organization [facility] Address [address] [place] [address] Phone Care Team Providers Care Invisible Braces Orthodontist Name Role Phone Unavailable Primary Care Provider Unavailabl e Social History Tobacco Use Types Packs/Day Years Used Date Smoking Tobacco: Never Assessed Comments Unknown Sex and Gender Information Value Date Recorded Sex Assigned at Not on file Legal Sex Female 5:59 AM EST Gender Identity Not on file Sexual Orientation Not on file Plan of Treatment Not on file
--- OUTSIDE RECORDS SUMMARY | 2025-05-08 13:53 | XMS_ITS | Clinical Summary ---
Author Organization Kavin Yancey [facility] Address [address] [place] [address] Care Team Providers Care Metallurgist Process Name Role Phone Newton Verdugo DO Primary Care Provider [phone] Allergies Active Allergy Reactions Criticality Noted Date Comments Morphine Nausea And Vomiting Low 09/28/2013 Medications HUMALOG 100 UNIT/ML injection 3 Active simvastatin (ZOCOR) 80 MG tablet 3 Active gabapentin (NEURONTIN) 600 MG tablet 3 Active omeprazole (PRILOSEC) 20 MG capsule 3 Active silver sulfADIAZINE (SILVADENE) 1 % cream Apply topically twice a day 20 g 1 3 Active fluconazole (DIFLUCAN) 100 MG tablet 3 Active HYDROcodone-aceta minophen (NORCO) 5-325 MG per tablet 3 Active silver sulfADIAZINE (SILVADENE) 1 % cream Apply to affected area twice a day 50 g 2 5 Active silver sulfADIAZINE (SILVADENE) 1 % cream Apply to affected area twice a day 50 g 2 5 Active Active Problems Problem Noted Date Diagnosed Date Type II or unspecified type diabetes mellitus with other specified manifestations, not stated as uncontrolled 09/28/2013 Social History Tobacco Use Types Packs/Day Years Used Date Smoking Tobacco: Never Smokeless Tobacco: Never Alcohol Use Standard Drinks/Week Comments Not Asked 0 (1 standard drink = 0.6 oz pur e alcohol) Comments Unknown Sex and Gender Information Value Date Recorded Sex Assigned at Not on file Legal Sex Female 4:05 PM EST Gender Identity Not on file Sexual Orientation Not on file Last Filed Vital Signs Vital Sign Reading Time Taken Comments Blood Pressure 147/92 02/26/2015 2:39 PM EDT Pulse 93 02/26/2015 2:39 PM EDT Temperature 36.8 C (98.2 F) 11/16/2013 8:02 AM EST Respiratory Rate 17 02/26/2015 2:39 PM EDT Oxygen Saturation - - Inhaled Oxygen Concentration - - Weight 65.8 kg (145 lb) 03/06/2015 10:17 AM EDT Height 165.1 cm (5' 5 ) 03/06/2015 10:17 AM EDT Body Mass Index 24.13 03/06/2015 10:17 AM EDT Plan of Treatment Not on file Insurance [employer] Care Teams Metallurgist Process Relationship Specialty Start Date End Date Newton Verdugo DO PCP - General 09/28/13
== END 2025-05-08 13:52 | disposition home or self-care (01) ==
LOC: WC 13:51
PROVIDERS: PCP Internal Medicine; Visit Provider Physician Assistant
DX: E11.621 Type 2 diabetes mellitus with foot ulcer (principal); L97.412 Non-pressure chronic ulcer of right heel and midfoot with fat layer exposed; L97.422 Non-pressure chronic ulcer of left heel and midfoot with fat layer exposed
CPT/HCPCS: G0463

== ENCOUNTER 2025-05-14 14:01 | Outpatient (OUT) | payer OTHER, SELFPAY | END 2025-05-14 14:02 | disposition home or self-care (01) | LOC: WC 14:01 | PROVIDERS: PCP Internal Medicine; Visit Provider Podiatrist Foot & Ankle Surgery | DX: E11.621 Type 2 diabetes mellitus with foot ulcer (principal); L97.422 Non-pressure chronic ulcer of left heel and midfoot with fat layer exposed; L97.412 Non-pressure chronic ulcer of right heel and midfoot with fat layer exposed | CPT/HCPCS: G0463 ==

== ENCOUNTER 2025-05-22 13:55 | Outpatient (OUT) | payer OTHER, SELFPAY ==
--- OUTSIDE RECORDS SUMMARY | 2025-05-22 13:57 | XMS_ITS | Clinical Summary ---
Author Organization [facility] Address [address] [place] [address] Phone Care Team Providers Care Hazard Waste Handler Name Role Phone Unavailable Primary Care Provider [...]
== END 2025-05-22 13:56 | disposition home or self-care (01) ==
LOC: WC 13:55
PROVIDERS: PCP Internal Medicine; Visit Provider Physician Assistant
DX: E11.621 Type 2 diabetes mellitus with foot ulcer (principal); L97.422 Non-pressure chronic ulcer of left heel and midfoot with fat layer exposed; L97.412 Non-pressure chronic ulcer of right heel and midfoot with fat layer exposed
CPT/HCPCS: G0463

== ENCOUNTER 2025-05-28 11:06 | Outpatient (OUT) | payer OTHER, SELFPAY | END 2025-05-28 11:07 | disposition home or self-care (01) | LOC: WC 11:07 | PROVIDERS: PCP Internal Medicine; Visit Provider Physician Assistant | DX: E11.621 Type 2 diabetes mellitus with foot ulcer (principal); L97.422 Non-pressure chronic ulcer of left heel and midfoot with fat layer exposed; L97.412 Non-pressure chronic ulcer of right heel and midfoot with fat layer exposed | CPT/HCPCS: A6213; G0463 ==

== ENCOUNTER 2025-06-12 10:26 | Outpatient (OUT) | payer OTHER, SELFPAY ==
--- OUTSIDE RECORDS SUMMARY | 2025-06-12 10:29 | XMS_ITS | Clinical Summary ---
Author Organization [employer] [facility] tem Address [id number] [address] [place] [address] Care Team Providers Care Well Digger Name Role Phone Newton Verdugo Primary Care Provider [phone] Allergies Active Allergy Reactions Criticality Noted Date Comments Brimonidine 02/12/2022 Morphine Nausea And Vomiting,Vomiting Low 12/05/2007 Morphine Sulfate 12/23/2021 Other reaction(s): Unknown Shellfish Containing Products 12/05/2007 Medications clobetasoL (TEMOVATE) 0.05 % cream clobetasol 0.05 % topical cream Active ergocalciferol (DRISDOL) 1,250 mcg (50,000 unit) capsule Vitamin D2 1,250 mcg (50,000 unit) capsule Active DUPIXENT SYRINGE 300 mg/2 mL syringe SUBQ injection 01/18/20 22 Active gabapentin (NEURONTIN) 300 mg capsuleIndications :Neuropathy TAKE 1 CAPSULE DAILY 90 capsule 3 11/03/20 22 Active ketoconazole (NIZORAL) 2 % shampoo Apply 1 Application topically once a week. Active HumaLOG U-100 Insulin 100 unit/mL injectionIndicatio ns:Type 1 diabetes mellitus with nephropathy ([facility]) USE 60 UNITS DAILY VIA INSULIN PUMP 90 mL 3 09/30/20 23 Active msshg-rvwoe-9-dha- epa-lipids (KRILL OIL) 919-94-46-50 mg capsule Take by mouth. Acti ve biotin 1 mg capsule Take by mouth. Activ e cetirizine (ZyrTEC) 10 mg tablet Take by mouth. Activ e pregabalin (LYRICA) 100 mg capsuleIndications :Diabetic peripheral neuropathy (CMS-HCC) TAKE 1 CAPSULE THREE TIMES A DAY 90 capsule 2 05/20/20 24 Active fluocinonide (LIDEX) 0.05 % external solution APPLY TO SCALP 1 OR 2 TIMES DAILY NEEDED FOR ITCHING. AVOID FACE AND NECK 10/01/20 24 Active atorvastatin (LIPITOR) 80 mg tabletIndications: Mixed hyperlipidemia TAKE 1 TABLET IN THE MORNING 90 tablet 1 03/13/20 25 Active dorzolamide-timolo L (COSOPT) 22.3-6.8 mg/mL ophthalmic solution INSTILL 1 DROP IN THE LEFT EYE EVERY 12 HOURS 10 mL 3 04/03/20 25 Active Active Problems Problem Noted Date Diagnosed Date Neuropathy 11/03/2022 Stage 3 chronic kidney disease 08/20/2022 Migraine 08/20/2022 Hyperlipidemia 08/20/2022 Glaucoma 08/20/2022 Gastroesophageal reflux disease 08/20/2022 Diabetic retinopathy 08/20/2022 Atopic dermatitis 08/20/2022 Allergic rhinitis 08/20/2022 Chronic hyperkalemia 03/15/2022 Type 1 diabetes 09/28/2013 Encounters Date Type Department Care Team Description 04/03/2025 Refill [facility] [address] [place] [address] Newton Thakur MD 03/13/2025 Refill [facility] [address] [place] [address] Newton Verdugo, DO Mixed hyperlipidemia from Last 3 Months Immunizations Immunization Administration Dates Next Due Influenza (IM) Preservative Free 11/10/2016,11/2014 Influenza, Im Trivalent Preservative 08/07/2014 Influenza, Injectable, MDCK, Quadrivalent 2018 Influenza, Injectable, Mdck, Preservative Free, Quad 10/24/2018,10/12/2017 Influenza, Injectable, quadrivalent (PF) 023 Pneumococcal Conjugate 13-Valent 10/12/2017 Pneumococcal Polysaccharide 10/24/2018 Tdap 01/03/2020 Zoster Vaccine Recombinant 09/23/2022,07/14/2022 Family History Medical History Relation Name Comments Cataracts Mother Glaucoma Mother Macular degeneration Mother Amblyopia Neg Hx Blindness Neg Hx Fuchs' dystrophy Neg Hx Retinal detachment Neg Hx Strabismus Neg Hx Relation Name Status Comments Mother Social History Tobacco Use Types Packs/Day Years Used Date Smoking Tobacco: Never Smokeless Tobacco: Never Tobacco Cessation:Counseling Given: Not Answered Alcohol Use Standard Drinks/Week Comments Yes 0 (1 standard drink = 0.6 oz pur e alcohol) socially PHQ-2 Answer Date Recorded Total Score 0 01/12/2024 Childcare Answer Date Recorded Childcare Unknown 05/09/2019 Employment Answer Date Recorded Employment Unknown 05/09/2019 Hunger Screening Answer Date Recorded Within the past 12 months we worried whether our food would run out before we got money to buy more. Never True 01/12/2024 Within the past 12 months th e food we bought just didn't last and we didn't have money to get more. Never True 01/12/2024 Purpose - Life Answer Date Recorded Purpose and direction in life Unknown Comments Unknown Sex and Gender Information Value Date Recorded Sex Assigned at Not on file Legal Sex Female 12:06 PM EDT Gender Identity Not on file Sexual Orientation Not on file Last Filed Vital Signs Vital Sign Reading Time Taken Comments Blood Pressure 110/70 11/19/2024 1:42 PM EST Pulse 84 11/19/2024 1:42 PM EST Temperature 36.4 C (97.6 F) 11/19/2024 1:42 PM EST Respiratory Rate 18 11/19/2024 1:42 PM EST Oxygen Saturation 98% 11/19/2024 1:42 PM EST Inhaled Oxygen Concentration - - Weight 69.7 kg (153 lb 9.6 oz) 11/19/2024 1:42 P M EST Height 165.1 cm (5' 5 ) 11/19/2024 1:42 PM EST Body Mass Index 25.56 11/19/2024 1:42 PM EST Plan of Treatment Upcoming Encounters Date Type Department Care Team (Late st Contact Info) Description 07/09/2025 3:15 PM EDT Office Visit [facility] [address] [place] [address] Newton Verdugo DO [address] [place] [address] 09/16/2025 8:00 AM EDT Office Visit [facility], A Department of [facility] [address] [place] [address] Nick Bailey MD [address] [place] [address] 02/24/2026 3:00 PM EDT Ophthalmology Imaging [facility] [address] [place] [address]/24/2026 3:10 PM EDT Office Visit [facility] [address] [place] [address] Newton Thakur MD [address] [place], [place] [address] [phone] Health Maintenance Due Date Last Done Comments Adult BMI Follow Up Plan 1986 Pap Smear 1989 Mammogram 2008 Diabetic Foot Exam 03/03/2024 03/03/2023 COVID-19 Vaccine (2023-2 5 season) 2024 10/12/2023, 07/14/2022, 11/09/2021, Additional history exists Depression Screening 01/12/2025 01/12/2024 Influenza Vaccine 07/29/2025 11/27/2024, , 10/04/2019, Additional history exists Adult BMI Screening 11/19/2025 11/19/2024 Diabetic Ophthalmology Exam 02/20/2026 02/20/2025 Tobacco Screening 02/20/2026 02/20/2025 DTaP,Tdap and Td Vaccines (2 - Td or Tdap) 01/03/2030 01/03/2020 Zoster (Shingles) Vaccine Completed 09/23/2022, Medical Devices Not on file Insurance [employer] Member Subscriber Plan / Payer (Ef fective 2021-Present) Name:Hesham Yuridia Taveras Relation to Subscriber:Spouse Name:WIL VENTURA Date of :1963 (Home) Address: [address] [place] [address] Payer ID:Not on file Type:Not on file Address: [facility] [address] [id number] Care Teams Well Digger Relationship Specialty Start Date End Date Newton Verdugo DO [address] [place] [address] PCP - General Internal Medicine 08/24/21
--- OUTSIDE RECORDS SUMMARY | 2025-06-12 10:29 | XMS_ITS | Encounter Summary ---
Author [facility] Address [facility] [id number] [address] [place] [address] Care Team Providers Care Director Of Safety And Security Name Role Phone Newton Verdugo DO Primary Care Provider [phone] Reason for Visit * Reason Comments Med Refill Encounter Details Date Type Department Care Team (Late st Contact Info) Description 09/19/2024 Refill [facility] [address] [place] [address] Newton Verdugo DO [address] [place] [address] Type 1 diabetes mellitus with nephropathy ([facility]) Social History Tobacco Use Types Packs/Day Years Used Date Smoking Tobacco: Never Smokeless Tobacco: Never Alcohol Use Standard Drinks/Week Comments Yes 0 [...] on file Sexual Orientation Not on file documented as of this encounter Plan of Treatment Upcoming Encounters Date Type Department Care Team (Late st Contact Info) Description 07/09/2025 3:15 PM EDT Office Visit [facility] [address] [place] [address] Newton Verdugo DO [address] [place] [address] 09/16/2025 8:00 AM EDT Office Visit [facility], A Department of [facility] [address] [place] [address] Nick Bailey MD [address] [place] [address] 02/24/2026 3:00 PM EDT Ophthalmology Imaging [facility] [address] [place] [address] 02/24/2026 3:10 PM EDT Office Visit [facility] [address] [place] [address] Newton Thakur MD [address] [place] [address] documented as of this encounter Visit Diagnoses Diagnosis Type 1 diabetes mellitus with nephropathy ([facility]) documented in this encounter Additional Health Concerns Assessment Noted Time PHQ-9 Depression Total Score: 0 01/12/20 24 9:53 AM EST documented as of this encounter Care Teams Director Of Safety And Security Relationship Specialty Start Date End Date Newton Verdugo DO [address] [place] [address] PCP - General Internal Medicine 08/24/21 documented as of this encounter
--- OUTSIDE RECORDS SUMMARY | 2025-06-12 10:29 | XMS_ITS | Encounter Summary ---
Author Organization [email or web address] tem Address [facility] [id number] [address] [place] [address] Care Team Providers Care Sales Attendant Name Role Phone Newton Verdugo DO Primary Care Provider [phone] Encounter Details Date Type Department Care Team (Late st Contact Info) Description 09/21/2023 Orders Only [facility] [address] [place] [address] Newton Verdugo DO [address] [place] [address] Social History Tobacco Use Types Packs/Day Years Used Date Smoking Tobacco: Never Smokeless Tobacco: Never Alcohol Use Standard Drinks/Week Comments Yes 0 (1 standard drink = 0.6 oz pur e alcohol) socially PHQ-2 Answer Date Recorded Total Score 0 08/23/2023 Childcare Answer Date Recorded Childcare Unknown 05/09/2019 Employment Answer Date Recorded Employment Unknown 05/09/2019 Hunger Screening Answer Date Recorded Within the past 12 months we worried whether our food would run out before we got money to buy more. Never True 08/23/2023 Within the past 12 months th e food we bought just didn't last and we didn't have money to get more. Never True 08/23/2023 Purpose - Life Answer Date Recorded Purpose [...] Internal Medicine - Family Medicine [address] [place] [address] Newton Verdugo DO [address] [place] [address] 09/16/2025 8:00 AM EDT Office Visit [facility], A Department of [facility] [address] [place] [address] Nick Bailey MD [address] [place] [address] 02/24/2026 3:00 PM EDT Ophthalmology Imaging [facility] [address] [place] [address] 02/24/2026 3:10 PM EDT Office Visit [facility] [address] [place] [address] Nweton Thakur MD [address] [place] [address] documented as of this encounter Visit Diagnoses Not on filedocumented in this encounter Additional Health Concerns Assessment Noted Time PHQ-9 Depression Total Score: 0 08/23/20 23 8:51 AM EDT documented as of this encounter Care Teams Sales Attendant Relationship Specialty Start Date End Date Newton Verdugo DO [address] [place] [address] PCP - General Internal Medicine 08/24/21 documented as of this encounter
--- OUTSIDE RECORDS SUMMARY | 2025-06-12 10:29 | XMS_ITS | Encounter Summary ---
Author Organization [facility] tem Address [facility] [id number] [address] [place] [address] Care Team Providers Care Superintendent Greens Name Role Phone Newton Verdugo DO Primary Care Provider [phone] Encounter Details Date Type Department Care Team (Late st Contact Info) Description 08/23/2023 Orders Only [facility] [address] [place] [address] Newton Verdugo DO [address] [place] [address] Mixed hyperlipidemia (Primary Dx) Social History Tobacco Use Types Packs/Day Years [...] - Family Medicine [address] [place] [address] Newton Verdugo DO [address] [place] [address] 09/16/2025 8:00 AM EDT Office Visit [facility], A Department of [facility] [address] [place] [address] Nick Bailey MD [address] [place] [address] 02/24/2026 3:00 PM EDT Ophthalmology Imaging [facility] [address] [place] [address] 02/24/2026 3:10 PM EDT Office Visit [facility] [address] [place] [address] Newton Thakur MD [address] [place] [address] documented as of this encounter Visit Diagnoses Diagnosis Mixed hyperlipidemia- Primary documented in this encounter Additional Health Concerns Assessment Noted Time PHQ-9 Depression Total Score: 0 08/23/20 23 8:51 AM EDT documented as of this encounter Care Teams Superintendent Greens Relationship Specialty Start Date End Date Newton Verdugo DO [address] [place] [address] PCP - General Internal Medicine 08/24/21 documented as of this encounter
--- OUTSIDE RECORDS SUMMARY | 2025-06-12 10:29 | XMS_ITS | Encounter Summary ---
Author Organization [employer] s tem Address [facility] [id number] [address] [place] [address] Care Team Providers Care Plywood Scarfer Tender Name Role Phone Newton Verdugo Primary Care Provider [phone] Encounter Details Date Type Department Care Team (Late st Contact Info) Description 01/09/2025 [facility]phone [facility] [address] [place] [address] Anthony Martinez CMA Social History Tobacco Use Types Packs/Day Years [...] on file documented as of this encounter Miscellaneous Notes * Telephone Encounter - Anthony Martinez CMA - 01/09/2025 1:03 PM EST I called pt to verify a extended [employer]? documented in this encounter Plan of Treatment Upcoming Encounters Date Type Department Care Team (Late st Contact Info) Description 07/09/2025 3:15 PM EDT Office Visit [facility] [address] [place] [address] Newton Verdugo DO [address] [place] [address] 09/16/2025 8:00 AM EDT Office Visit [facility], A Department of [facility] [address] [place] [address] Ncik Bailey MD [address] [place] [address] 02/24/2026 3:00 PM EDT Ophthalmology Imaging [facility] [address] [place] [address] 02/24/2026 3:10 PM EDT Office Visit [facility] [address] [place] [address] Newton Thakur MD [address] [place] [address] documented as of this encounter Visit Diagnoses Not on filedocumented in this encounter Additional Health Concerns Assessment Noted Time PHQ-9 Depression Total Score: 0 01/12/20 24 9:53 AM EST documented as of this encounter Care Teams Plywood Scarfer Tender Relationship Specialty Start Date End Date Newton Verdugo DO [address] [place] [address] PCP - General Internal Medicine 08/24/21 documented as of this encounter
--- OUTSIDE RECORDS SUMMARY | 2025-06-12 10:30 | XMS_ITS | Clinical Summary ---
Author Organization [facility] Address [address] [place] [address] Phone Care Team Providers Care Public Transit Trolley Driver Name Role Phone Unavailable Primary Care Provider [...]
--- OUTSIDE RECORDS SUMMARY | 2025-06-12 10:30 | XMS_ITS | Encounter Summary ---
Author Organization [employer] s tem Address [facility] [id number] [address] [place] [address] Care Team Providers Care Technical Publications Manager Name Role Phone Newton Verdugo DO Primary Care Provider [phone] Reason for Visit * Reason Comments Med Refill Encounter Details Date Type Department Care Team (Late st Contact Info) Description 10/07/2022 Refill [facility] [address] [place] [address] Lisa Winter, TOYN-BAND SPLITTER [address] [place] [id number] Social History Tobacco Use Types Packs/Day Years Used Date Smoking Tobacco: Never Smokeless Tobacco: Never Childcare Answer Date Recorded Childcare Unknown 05/09/2019 Employment Answer Date Recorded Employment Unknown 05/09/2019 Purpose - Life Answer Date Recorded Purpose and direction in life Unknown Comments Unknown Sex and Gender Information Value Date Recorded Sex Assigned at Not on file Legal Sex Female 12:06 PM EDT Gender Identity Not on file Sexual Orientation Not on file documented as of this encounter Plan of Treatment Upcoming Encounters Date Type Department Care Team (Late Contact Info) Description 07/09/2025 3:15 PM EDT Office Visit [facility] [address] [place] [address] Newton Verdugo DO [address] [facility] [place] [address] 09/16/2025 8:00 AM EDT Office Visit [facility], A Department of [facility] [address] [place] [address] Nick Bailey MD [address] [place], [place] [phone] 02/24/2026 3:00 PM EDT Ophthalmology Imaging [facility] [address] [place] [address] 02/24/2026 3:10 PM EDT Office Visit [facility] [address] [place] [address] Newton Thakur MD [address] [place], [place] [address] [phone] documented as of this encounter Visit Diagnoses Not on filedocumented in this encounter Care Teams Technical Publications Manager Relationship Specialty Start Date End Date Newton Verdugo DO [address] [place] [address] PCP - General Internal Medicine 08/24/21 documented as of this encounter
--- OUTSIDE RECORDS SUMMARY | 2025-06-12 10:30 | XMS_ITS | Encounter Summary ---
Author Organization [employer] tem Address [facility] [id number] [address] [place] [address] Care Team Providers Care Artists' Model Name Role Phone Newton Verdugo Primary Care Provider [phone] Reason for Visit * Reason Onset Date Comments Med Refill 05/24/2024 Encounter Details Date Type Department Care Team (Late st Contact Info) Description 05/24/2024 Refill [facility] [address] [place] [address] Sena Gregg CMA Diabetic peripheral neuropathy ([facility]) Social History Tobacco Use Types Packs/Day Years [...] Internal Medicine - Family Medicine [address] [place] [address] Newton Verdugo DO [address] [place] [address] 09/16/2025 8:00 AM EDT Office Visit [facility], A Department of [facility] [address] [place] [address] Nick Bailey MD [address] [place] [address] 02/24/2026 3:00 PM EDT [facility] [address] [place] [address] 02/24/2026 3:10 PM EDT Office Visit [facility] [address] [place] [address] Newton Thakur MD [address] [place] [address] documented as of this encounter Visit Diagnoses Diagnosis Diabetic peripheral neuropathy ([facility]) Type II or unspecified type diabetes mellitus with neurological manifestations, not stated as uncontrolled documented in this encounter Additional Health Concerns Assessment Noted Time PHQ-9 Depression Total Score: 0 01/12/20 24 9:53 AM EST documented as of this encounter Care Teams Artists' Model Relationship Specialty Start Date End Date Newton Verdugo DO [address] [place] [address] PCP - General Internal Medicine 08/24/21 documented as of this encounter
--- OUTSIDE RECORDS SUMMARY | 2025-06-12 10:30 | XMS_ITS | Encounter Summary ---
Author Organization [employer] s tem Address [facility] [place][id number] [address] [place] [address] Care Team Providers Care Concrete Precast Moulder Name Role Phone Newton Verdugo DO Primary Care Provider [phone] Encounter Details Date Type Department Care Team (Late st Contact Info) Description 12/06/2022 Orders Only [facility] [address] [place] [address] Newton Verdugo DO [address] [place] [address] Social History Tobacco Use Types Packs/Day Years [...] Medicine - Family Medicine [address] [place] [address] Newton Verdugo DO [address] [place] [address] 09/16/2025 8:00 AM EDT Office Visit [facility], A Department of [facility] [address] [place] [address] Nick Bailey MD [address] [place] [address] 02/24/2026 3:00 PM EDT Ophthalmology Imaging [facility] [address] [place] [address] 02/24/2026 3:10 PM EDT Office Visit [facility] [address] [place] [address] Newton Thakur MD [address] [place], [place] [phone] documented as of this encounter Visit Diagnoses Not on filedocumented in this encounter Care Teams Concrete Precast Moulder Relationship Specialty Start Date End Date Newton Verdugo DO [address] [place] [address] PCP - General Internal Medicine 08/24/21 documented as of this encounter
--- OUTSIDE RECORDS SUMMARY | 2025-06-12 10:30 | XMS_ITS | Encounter Summary ---
Author Organization [facility] [employer] s tem Address [facility] [id number] [address] [place] [address] Care Team Providers Care Job Setter Honing Name Role Phone Newton Verdugo DO Primary Care Provider [phone] Encounter Details Date Type Department Care Team (Late st Contact Info) Description 02/28/2024 Orders Only [facility] [address] [place] [address] Newton Verdugo DO [address] [place] [address] Social History Tobacco Use Types Packs/Day Years [...] - Family Medicine [address] [place] [place] [address] Newton Verdugo DO [address] [place] [address] 09/16/2025 8:00 AM EDT Office Visit [facility], A Department of [facility] [address] [place] [address] Nick Bailey MD [address] [place] [address] 02/24/2026 3:00 PM EDT Ophthalmology Imaging [facility] [address] [place] [address] 02/24/2026 3:10 PM EDT Office Visit [facility] [address] [place] [address] Newton Thakur MD [address] [place] [address] documented as of this encounter Visit Diagnoses Not on filedocumented in this encounter Additional Health Concerns Assessment Noted Time PHQ-9 Depression Total Score: 0 01/12/20 24 9:53 AM EST documented as of this encounter Care Teams Job Setter Honing Relationship Specialty Start Date End Date Newton Verdugo DO [address] [place] [address] PCP - General Internal Medicine 08/24/21 documented as of this encounter
--- OUTSIDE RECORDS SUMMARY | 2025-06-12 10:30 | XMS_ITS | Encounter Summary ---
Author Organization [employer] s tem Address [facility]-[id number] [address] [place] [address] Care Team Providers Care Grape Picker Name Role Phone Newton Verdugo Primary Care Provider [phone] Encounter Details Date Type Department Care Team (Late st Contact Info) Description 10/18/2023 Telephone [facility] Internal [facility] - Family Medicine [address] [place] [address] Peggy Sheridan CMA Social History Tobacco Use Types Packs/Day [...] encounter Miscellaneous Notes * Telephone Encounter - Peggy Sheridan CMA - 10/18/2023 9:54 AM EST Pt called and her cologuard and would like to do it. Can you send another order out? documented in this encounter Plan of Treatment Upcoming Encounters Date Type Department Care Team (Late st Contact Info) Description 07/09/2025 3:15 PM EDT Office Visit [facility] Internal [facility] - Family Medicine [address] [place] [address] Newton Verdugo DO [address] [place] [address] 09/16/2025 8:00 AM EDT Office Visit [facility], A Department of [facility] [address] [place] [address] Nick Bailey MD [address] [place] [address] 02/24/2026 3:00 PM EDT Ophthalmology Imaging [facility] [address] [place] [address]/24/2026 3:10 PM EDT Office Visit [facility] [address] [place] [address] Newton Thakur MD [address] [place] [address] documented as of this encounter Visit Diagnoses Not on filedocumented in this encounter Additional Health Concerns Assessment Noted Time PHQ-9 Depression Total Score: 0 08/23/20 8:51 AM EDT documented as of this encounter Care Teams Grape Picker Relationship Specialty Start Date End Date Newton Verdugo DO [address] [place] [address] PCP - General Internal Medicine 08/24/21 documented as of this encounter
--- OUTSIDE RECORDS SUMMARY | 2025-06-12 10:30 | XMS_ITS | Encounter Summary ---
Author Organization [facility] [employer] [employer] s tem Address [id number] [address] [place] [address] Care Team Providers Care It Application Support Analyst Name Role Phone Newton Verdugo DO Primary Care Provider [phone] Encounter Details Date Type Department Care Team (Late Contact Info) Description 03/14/2023 Orders Only [facility] Internal Medicine - Family Medicine [address] [place] [address] Newton Verdugo DO [address] [place] [address] Social History Tobacco Use Types Packs/Day Years Used Date Smoking Tobacco: Never Smokeless Tobacco: Never Alcohol Use Standard Drinks/Week Comments Yes 0 (1 standard drink = 0.6 oz pur e alcohol) socially PHQ-2 Answer Date Recorded Total Score 0 03/03/2023 Childcare Answer Date Recorded Childcare Unknown 05/09/2019 Employment Answer Date Recorded Employment Unknown 05/09/2019 Purpose - Life Answer Date Recorded Purpose and direction in life Unknown Comments Unknown Sex and Gender Information Value Date Recorded Sex Assigned at Not on file Legal Sex Female 12:06 PM EDT Gender Identity Not on file Sexual Orientation Not on file COVID-19 Exposure Response Date Recorded In the last month, have you been in contact with someone who was confirmed or suspected to have Coronavirus / COVID-19? No / Unsure 03/03/2023 8:39 AM EDT documented as of this encounter Plan of Treatment Upcoming Encounters Date Type Department Care Team (Late Contact Info) Description 07/09/2025 3:15 PM EDT Office Visit [facility] Internal Medicine - Family Medicine [address] [place] [address] Newton Verdugo DO [address] [place] [address] 09/16/2025 8:00 AM EDT Office Visit [facility], A Department of [facility] [address] [place] [address] Nick Bailey MD [address] [place] [address] 02/24/2026 3:00 PM EDT [facility] [address] [place] [address] 02/24/2026 3:10 PM EDT Office Visit [facility] [address] [place] [address] Newton Thakur MD [address] [place] [address] documented as of this encounter Visit Diagnoses Not on filedocumented in this encounter Additional Health Concerns Assessment Noted Time PHQ-9 Depression Total Score: 0 03/03/20 23 8:51 AM EDT documented as of this encounter Care Teams It Application Support Analyst Relationship Specialty Start Date End Date Newton Verdugo DO [address] [place] [address] PCP - General Internal Medicine 08/24/21 documented as of this encounter
--- OUTSIDE RECORDS SUMMARY | 2025-06-12 10:30 | XMS_ITS | Encounter Summary ---
Author Organization [employer] Address [id number] [address] [place] [address] Care Team Providers Care Investor Relations Coordinator Name Role Phone Newton Verdugo DO Primary Care Provider [phone] Reason for Visit * Reason Comments Med Refill Encounter Details Date Type Department Care Team (Late st Contact Info) Description 02/16/2023 Refill [facility] Internal Medicine - Family Medicine [address] [place] [address] Newton Verdugo DO [address] [place] [address] Diabetic peripheral neuropathy ([facility]) Social History Tobacco Use Types Packs/Day Years [...] have Coronavirus / COVID-19? No / Unsure 01/31/2023 7:53 AM EST documented as of this encounter Miscellaneous Notes * Telephone Encounter - Emeli Gonsalves CMA - 02/16/2023 5:05 PM EDT Please call pt, per Dr Hernandez she needs an appointment. * Telephone Encounter - Peggy Sheridan CMA - 02/16/2023 5:05 PM EDT LM via to schedule documented in this encounter Plan of Treatment Upcoming Encounters Date Type Department Care Team (Late st Contact Info) Description 07/09/2025 3:15 PM EDT Office Visit [facility] Internal Medicine - Family Medicine [address] [place] [address] Newton Verdugo DO [address] [place] [address] 09/16/2025 8:00 AM EDT [facility] [address] [place] [address] Nick Bailey MD [address] [place] [address] 02/24/2026 3:00 PM EDT Ophthalmology Imaging [facility] [address] [place] [address]/24/2026 3:10 PM EDT Office Visit [facility] [address] [place] [address] Newton Thakur MD [address] [place] [address] (Work) documented as of this encounter Visit Diagnoses Diagnosis Diabetic peripheral neuropathy ([facility]) Type II or unspecified type diabetes mellitus with neurological manifestations, not stated as uncontrolled documented in this encounter Care Teams Investor Relations Coordinator Relationship Specialty Start Date End Date Newton Verdugo DO [address] [place] [address] PCP - General Internal Medicine 08/24/21 documented as of this encounter
--- OUTSIDE RECORDS SUMMARY | 2025-06-12 10:30 | XMS_ITS | Encounter Summary ---
Author Organization [employer] s tem Address [facility] [place]-[id number] [address] [place] [address] Care Team Providers Care Shallot Cleaner Name Role Phone Newton Verdugo DO Primary Care Provider [phone] Encounter Details Date Type Department Care Team (Late Contact Info) Description 07/14/2023 Orders Only [facility] Internal Medicine - Family Medicine [address] [place] [address] External, Scanning Provider Social History Tobacco Use Types Packs/Day Years [...] - Family Medicine [address] [place] [address] Newton Verdugo DO [address] [place] [address] 09/16/2025 8:00 AM EDT Office Visit [facility], A Department of [facility] [address] [place] [address] Nick Bailey MD [address] [place] [address] 02/24/2026 3:00 PM EDT Ophthalmology Imaging [facility] [address] [place] [address] 02/24/2026 3:10 PM EDT Office Visit [facility] [address] [place] [address] Newton Thakur MD [address] [place], [place] [address] [phone] documented as of this encounter Procedures Procedure Name Priority Date/Time Associated Diagnosis Comments COLOGUARD Routine 07/13/2023 2:55 PM EDT documented in this encounter Results * COLOGUARD (07/13/2023 2:55 PM EDT) us Scanning Provider External HEALTH MAINTENANCE nal Result MANUALLY TRANSCRIBED RESULTS documented in this encounter Visit Diagnoses Not on filedocumented in this encounter Additional Health Concerns Assessment Noted Time PHQ-9 Depression Total Score: 0 03/03/20 23 8:51 AM EDT documented as of this encounter Care Teams Shallot Cleaner Relationship Specialty Start Date End Date Newton Verdugo DO [address] [place] [address] PCP - General Internal Medicine 08/24/21 documented as of this encounter
--- OUTSIDE RECORDS SUMMARY | 2025-06-12 10:30 | XMS_ITS | Encounter Summary ---
Author Organization [facility] [employer] s tem Address [facility] [id number] [address] [place] [address] Care Team Providers Care Service Writer Advisor Name Role Phone Newton Verdugo DO Primary Care Provider [phone] Encounter Details Date Type Department Care Team (Late st Contact Info) Description 03/03/2023 Orders Only [facility] Internal Medicine - Family Medicine [address] [place] [address] Newton Verdugo DO [address] [place] [address] Chronic hyperkalemia (Primary Dx) Social History Tobacco Use Types [...] Internal Medicine - Family Medicine [address] [place] [address] Newton Verdugo DO [address] [place] [address] 09/16/2025 8:00 AM EDT Office Visit [facility], A Department of [facility] [address] [place] [address] Nick Bailey MD [address] [place] [address] 02/24/2026 3:00 PM EDT [facility] [address] [place] [address] 02/24/2026 3:10 PM EDT Office Visit [facility] [address] [place] [address] Newton Thakur MD [address] [place] [address] documented as of this encounter Visit Diagnoses Diagnosis Chronic hyperkalemia- Primary Hyperpotassemia documented in this encounter Additional Health Concerns Assessment Noted Time PHQ-9 Depression Total Score: 0 03/03/20 23 8:51 AM EDT documented as of this encounter Care Teams Service Writer Advisor Relationship Specialty Start Date End Date Newton Verdugo DO [address] [place] [address] PCP - General Internal Medicine 08/24/21 documented as of this encounter
--- OUTSIDE RECORDS SUMMARY | 2025-06-12 10:30 | XMS_ITS | Clinical Summary ---
Author Organization [facility] Address [address] [place] [address] Care Team Providers Care Shearer Screen Measurer And Trimmer Name Role Phone Unavailable Primary Care Provider Unavailabl e Allergies Active Allergy Reactions Criticality Noted Date Comments Morphine 12/05/2007 Shellfish 12/05/2007 Medications insulin lispro,human rec.anlog(HUMALO G 100 UNIT/ML SUB-Q) 22 units daily throught pump 0 8 Active GABAPENTIN 600 MG TAB Take one(1) tablet daily. 0 8 Active atorvastatin calcium(LIPITOR 10 MG TAB) Take one(1) tablet daily. 0 8 Active esomeprazole mag trihydrate(NEXIU M 40 MG CAP) Take one(1) tablet daily. 0 8 Active clindamycin phosphate/rené per(DUAC 1 %-5 % TOPICAL GEL, SUST. RELEASE)Indicati ons:Other acne Apply sparingly to the affected area in the morning 45 4 8 Active MINOCYCLINE 50 MG CAPIndications:O ther acne Take one capsule twice daily 90 4 8 Active ketoconazole(SHREE ORAL 2 % SHAMPOO)Indicati ons:Seborrheic dermatitis, unspecified Apply sparingly when shampooing hair daily. Use double application 1 bottle 3 8 Active CLOBETASOL 0.05 % LOTION apply to scalp at bedtime 2-60cc 4 8 Active clindamycin phosphate(CLEOCI N T 1 % LOTION) Apply sparingly to the affected area daily in am 2-60cc 4 8 Active clindamycin/rené oyl prx/skn #5(DUAC CS 1 %-5 % TOPICAL KIT) apply to areas once a day in am 45g 4 8 Active Active Problems Problem Noted Date Diagnosed Date Other acne 12/05/2007 Seborrheic dermatitis, unspecified 12/05/2007 Social History Tobacco Use Types Packs/Day Years Used Date Smoking Tobacco: Never Alcohol Use Standard Drinks/Week Comments Not Asked 0 (1 standard drink = 0.6 oz pur e alcohol) Comments No Sex and Gender Information Value Date Recorded Sex Assigned at Not on file Legal Sex Female 9:41 AM EST Gender Identity Not on file Sexual Orientation Not on file Plan of Treatment Health Maintenance Due Date Last Done Comments Anxiety Screening 1986 Depression Screening 1986 HIV Screening 1986 Hepatitis C Screening 1986 DTaP,Tdap,Td Vaccine (1 - Tdap) 1987 Hepatitis B Vaccine (1 of 3 - 19+ 3-dose series) 09/15 Cervical Cancer Screening [address] M[address] Colonography 2013 Cologuard (FIT-DNA) 2013 Colonoscopy 2013 Colorectal Cancer Screening 2013 Diabetes Screening 2013 Fecal Occult Blood 2013 Lipid Screening 2013 Sigmoidoscopy 2013 Pneumococcal Vaccine: 50+ (1 of 1 - PCV) 2018 Shingrix Vaccine (1 of 2) 2018 Covid-19 Vaccine (1 - season) 2024 Influenza Vaccine (#1) 2025 Insurance [facility] [place] P[place]
--- OUTSIDE RECORDS SUMMARY | 2025-06-12 10:30 | XMS_ITS | Encounter Summary ---
Author Organization [facility] [employer] Address [facility] [id number] [address] [place] [address] Care Team Providers Care Manager Lighting Name Role Phone Newton Verdugo DO Primary Care Provider [phone] Encounter Details Date Type Department Care Team (Late st Contact Info) Description 10/18/2023 Orders Only [facility] Internal Medicine - Family Medicine [address] [place] [address] Newton Verdugo DO [address] [place] [address] Special screening for malignant neoplasm of colon (Primary Dx) Social History Tobacco Use Types [...] Internal Medicine - Family Medicine [address] [place] [address] Newton Verdugo DO [address] [place] [address] 09/16/2025 8:00 AM EDT Office Visit [facility], A Department of [facility] [address] [place] [address] Nick Bailey MD [address] [place] [address] 02/24/2026 3:00 PM EDT Ophthalmology Imaging [facility] [address] [place] [address] 02/24/2026 3:10 PM EDT Office Visit [facility] [address] [place] [address] Newton Thakur MD [address] [place] [address] documented as of this encounter Visit Diagnoses Diagnosis Special screening for malignant neoplasm of colon- Primary Special screening for malignant neoplasms, colon documented in this encounter Additional Health Concerns Assessment Noted Time PHQ-9 Depression Total Score: 0 08/23/20 23 8:51 AM EDT documented as of this encounter Care Teams Manager Lighting Relationship Specialty Start Date End Date Newton Verdugo DO [address] [place] [address] PCP - General Internal Medicine 08/24/21 documented as of this encounter
--- OUTSIDE RECORDS SUMMARY | 2025-06-12 10:30 | XMS_ITS | Encounter Summary ---
Author Organization [facility] [employer] [facility] Address [id number] [address] [place] [address] Care Team Providers Care Drug Safety Scientist Name Role Phone Newton Verdugo DO Primary Care Provider [phone] Encounter Details Date Type Department Care Team (Late st Contact Info) Description 12/13/2023 Orders Only [facility] Internal Medicine - Family Medicine [address] [place] [address] Newton Verdugo DO [address] [place] [address] Social History Tobacco Use Types Packs/Day Years [...] - Family Medicine [address] [place] [address] Newton Verdugo DO [address] [place] [address] 09/16/2025 8:00 AM EDT Office Visit [facility], A Department of [facility] [address] [place] [address] Nick Bailey MD [address] [place] [address] 02/24/2026 3:00 PM EDT Ophthalmology Imaging [facility] [address] [place] [address] 02/24/2026 3:10 PM EDT Office Visit [facility] [address] [place] [address] Newton Thakur MD [address] [place] [address] documented as of this encounter Visit Diagnoses Not on filedocumented in this encounter Additional Health Concerns Assessment Noted Time PHQ-9 Depression Total Score: 0 08/23/20 23 8:51 AM EDT documented as of this encounter Care Teams Drug Safety Scientist Relationship Specialty Start Date End Date Newton Verdugo DO [address] [place] [address] PCP - General Internal Medicine 08/24/21 documented as of this encounter
--- OUTSIDE RECORDS SUMMARY | 2025-06-12 10:30 | XMS_ITS | Encounter Summary ---
Author Organization [email or web address] [employer] [facility] Address [facility]-[id number] [address] [place] [address] Care Team Providers Care Patent Counsel Name Role Phone Newton Verdugo DO Primary Care Provider [phone] Encounter Details Date Type Department Care Team (Late st Contact Info) Description 01/12/2024 Orders Only [facility] Internal Medicine - Family Medicine [address] [place] [address] Newton Verdugo DO [address] [place] [address] Social History Tobacco Use Types Packs/Day Years [...] - Family Medicine [address] [place] [address] Newton Verdugo DO [address] [place] [address] 09/16/2025 8:00 AM EDT Office Visit [facility], A Department of [facility] [address] [place] [address] Nick Bailey MD [address] [place] [address] 02/24/2026 3:00 PM EDT Ophthalmology Imaging [facility] [address] [place] [address] 02/24/2026 3:10 PM EDT Office Visit [facility] [address] [place] [address] Newton Thakur MD [address] [place] [address] documented as of this encounter Visit Diagnoses Not on filedocumented in this encounter Additional Health Concerns Assessment Noted Time PHQ-9 Depression Total Score: 0 01/12/20 24 9:53 AM EST documented as of this encounter Care Teams Patent Counsel Relationship Specialty Start Date End Date Newton Verdugo DO [address] [place] [address] PCP - General Internal Medicine 08/24/21 documented as of this encounter
--- OUTSIDE RECORDS SUMMARY | 2025-06-12 10:30 | XMS_ITS | Encounter Summary ---
Author Organization [employer] tem Address [facility] [place]-[id number] [address] [place] [address] Care Team Providers Care Security Installer Name Role Phone Newton Verdugo DO Primary Care Provider [phone] Reason for Visit * Reason Comments Med Refill Encounter Details Date Type Department Care Team (Late Contact Info) Description 08/20/2022 Refill [facility] Internal Medicine - Family Medicine [address] [place] [address] Newton Verdugo DO [address] [place] [address] Diabetic peripheral neuropathy ([facility]) (Primary Dx); Type 1 diabetes mellitus with nephropathy ([facility] [...] Medicine - Family Medicine [address] [place] [address] Newton Verdugo DO [address] [place] [address] 09/16/2025 8:00 AM EDT Office Visit [facility], [facility] Department of [facility] [address] [place] [address] Nick Bailey MD [address] [place] [address] 02/24/2026 3:00 PM EDT [facility] [address] [place] [address] 02/24/2026 3:10 PM EDT [facility] [address] [place] [address] Newton Thakur MD [address] [place] [address] documented as of this encounter Visit Diagnoses Diagnosis Diabetic peripheral neuropathy (CMS-HCC)- Primary Type II or unspecified type diabetes mellitus with neurological manifestations, not stated as uncontrolled 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
--- OUTSIDE RECORDS SUMMARY | 2025-06-12 10:30 | XMS_ITS | Encounter Summary ---
Author Organization [employer] s tem Address [facility] [place]-[id number] [address] [place] [address] Care Team Providers Care Supervisor Polishing Name Role Phone Newton Verdugo DO Primary Care Provider [phone] Reason for Visit * Reason Comments Med Refill Encounter Details Date Type Department Care Team (Late st Contact Info) Description 11/03/2022 Refill [facility] Internal Medicine - Family Medicine [address] [place] [address] Lisa Winter, TONY-EMBEDDED PROCESSOR [address] [facility] [place] [address] Neuropathy (Primary Dx) Social History Tobacco Use Types [...] Medicine - Family Medicine [address] [place] [address] Newton Verdugo DO [address] [facility] [place] [address] 09/16/2025 8:00 AM EDT [facility] Department of [facility] [address] [place] [address] Nick Bailey MD [address] [place] [address] 02/24/2026 3:00 PM EDT [facility] [address] [place] [address] 02/24/2026 3:10 PM EDT [facility] [address] [place] [address] Newton Thakur MD [address] [place], [place] [phone] documented as of this encounter Visit Diagnoses Diagnosis Neuropathy- Primary Mononeuritis of unspecified site documented in this encounter Care Teams Supervisor Polishing Relationship Specialty Start Date End Date Newton Verdugo DO [address] [place] [address] PCP - General Internal Medicine 08/24/21 documented as of this encounter
--- OUTSIDE RECORDS SUMMARY | 2025-06-12 10:30 | XMS_ITS | Encounter Summary ---
Author Organization [facility] [employer] s tem Address [facility]-[id number] [address] [place] [address] Care Team Providers Care International Trade Specialist Name Role Phone [place] Verdugo DO Primary Care Provider [phone] Encounter Details Date Type Department Care Team (Late st Contact Info) Description 03/22/2023 Orders Only [facility] - Family Medicine [address] [place] [address] [place] Verdugo DO [address] [place] [address] Spondylosis of lumbar region without myelopathy or radiculopathy (Primary Dx) Social History Tobacco Use Types [...] Internal Medicine - Family Medicine [address] [place] [address] [place] Verdugo DO [address] [place] [address] 09/16/2025 8:00 AM EDT Office Visit [facility], A Department of [facility] [address] [place] [address] Nick Bailey MD [address] [place] [address] 02/24/2026 3:00 PM EDT Ophthalmology Imaging [facility] [address] [place] [address] 02/24/2026 3:10 PM EDT Office Visit [facility] [address] [place] [address] [place] Thakur MD [address] [place] [address] documented as of this encounter Visit Diagnoses Diagnosis Spondylosis of lumbar region without myelopathy or radiculopathy- Primary documented in this encounter Additional Health Concerns Assessment Noted Time PHQ-9 Depression Total Score: 0 03/03/20 23 8:51 AM EDT documented as of this encounter Care Teams International Trade Specialist Relationship Specialty Start Date End Date [place] Verdugo DO [address] [place] [address] PCP - General Internal Medicine 08/24/21 documented as of this encounter
--- OUTSIDE RECORDS SUMMARY | 2025-06-12 10:30 | XMS_ITS | Encounter Summary ---
Author Organization [employer] s tem Address [facility] [place]-[id number] [address] [place] [address] Care Team Providers Care Maintenance Millwright Name Role Phone [place] Verdugo Primary Care Provider Encounter Details Date Type Department Care Team (Late st Contact Info) Description 03/21/2023 Orders Only [facility] Internal [facility] - Family Medicine [address] [place] [address] Emeli Gonsalves CMA Spinal stenosis of lumbar region with neurogenic claudication; Hip pain, right; Chronic pain of right knee Social History Tobacco Use Types Packs/Day Years [...] Medicine - Family Medicine [address] [place] [address] [place] Verdugo, [address] [facility] [address] 09/16/2025 8:00 AM EDT Office Visit [facility], A Department of [facility] [address] [place] [address] Nick Bailey MD [address] [place] [address] 02/24/2026 3:00 PM EDT Ophthalmology Imaging [facility] [address] [place] [address]/24/2026 3:10 PM EDT [facility] [address] [place] [address] [place] Thakur MD [address] [place] [address] documented as of this encounter Procedures Procedure Name Priority Date/Time Associated Diagnosis Comments XR HIP LT 2-3 VIEWS W OR WO PELVIS Routine 03/21/2023 1:08 PM EDT Hip pain, right XR SPINE LUMBAR 2 OR 3 VWS Routine 03/21/2023 1:06 PM EDT Spinal stenosis of lumbar region with neurogenic claudication XR KNEE RT 3 VWS Routine 03/21/2023 1:05 PM EDT Chronic pain of right knee documented in this encounter Results * X-ray hip left 2-3 views with or without pelvis (03/21/2023 1:08 PM EDT) Anatomical Region Laterality Modality Lower Extremities, MSK, Hip Left Comp uted Radiography us [place] Verdugo DO IMG DIAGNOSTIC IMAGING ORDERABLE S Final Result * X-ray spine lumbar 2 or 3 views (03/21/2023 1:06 PM EDT) Anatomical Region Laterality Modality MSK, Neuro, Spine, L-spine N/A Compu man Radiography [place] Verdugo DO IMG DIAGNOSTIC IMAGING ORDERABLE S Final Result * X-ray knee right 3 views (03/21/2023 1:05 PM EDT) Anatomical Region Laterality Modality Lower Extremities, MSK, Knee Right Com puted Radiography Newton Verdugo DO IMG DIAGNOSTIC IMAGING ORDERABLE S Final Result documented in this encounter Visit Diagnoses Diagnosis Spinal stenosis of lumbar region with neurogenic claudication Hip pain, right Pain in joint, pelvic region and thigh Chronic pain of right knee documented in this encounter Additional Health Concerns Assessment Noted Time PHQ-9 Depression Total Score: 0 03/03/20 23 8:51 AM EDT documented as of this encounter Care Teams Maintenance Millwright Relationship Specialty Start Date End Date [place] Verdugo DO [address] [place] [address] PCP - General Internal Medicine 08/24/21 documented as of this encounter
--- OUTSIDE RECORDS SUMMARY | 2025-06-12 10:30 | XMS_ITS | Encounter Summary ---
Author Organization [employer] s tem Address [facility]-[id number] [address] [place] [address] Care Team Providers Care Software Technical Lead Name Role Phone [place] Verdugo DO Primary Care Provider [phone] Encounter Details Date Type Department Care Team (Late Contact Info) Description 06/06/2023 [facility] [address] [place] [address] [place] Verdugo DO [address] [place] [address] Social History Tobacco Use Types Packs/Day Years [...] Description 07/09/2025 3:15 PM EDT Office Visit [facility] Internal Medicine - Family Medicine [address] [place] [address] [place] Verdugo DO [address] [place] [address] 09/16/2025 8:00 AM EDT Office Visit [facility], A Department of [facility] [address] [place] [address] Nick Bailey MD [address] [place] [address] 02/24/2026 3:00 PM EDT Ophthalmology Imaging [facility] [address] [place] [address] 02/24/2026 3:10 PM EDT Office Visit [facility] [address] [place] [address] [place] Thakur MD [address] [place] [address] documented as of this encounter Visit Diagnoses Not on filedocumented in this encounter Additional Health Concerns Assessment Noted Time PHQ-9 Depression Total Score: 0 03/03/20 23 8:51 AM EDT documented as of this encounter Care Teams Software Technical Lead Relationship Specialty Start Date End Date [place] Verdugo DO [address] [place] [address] PCP - General Internal Medicine 08/24/21 documented as of this encounter
--- OUTSIDE RECORDS SUMMARY | 2025-06-12 10:30 | XMS_ITS | Patient Health Record ---
Author Organization [facility] [place] Address [address] [place] [address] Care Team Providers Care Engineer Systems Name Role Phone [place] Verdugo DO Primary Care Provider Unavailabl e Reason For Referral No Information Problems Problem Type SNOMED Code ICD Code Onset Dates Problem Status W/U Status Risk Notes Problem Foot ulcer due to type 1 diabetes mellitus (8160920214143 09) Type 1 diabetes mellitus with foot ulcer (E10.621) Active confirmed Problem Foot ulcer due to type 2 diabetes mellitus (7600476017754 ) Type 2 diabetes mellitus with foot ulcer (E11.621) Active confirmed Problem Chronic ulcer of foot (448380827) 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) Active confirmed Problem Chronic ulcer of foot (267806425) 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
--- OUTSIDE RECORDS SUMMARY | 2025-06-12 10:31 | XMS_ITS | Encounter Summary ---
Author Organization [employer] s tem Address [facility][id number] [address] [place] [address] Care Team Providers Care Rug Measurer Name Role Phone [place] Verdugo DO Primary Care Provider [phone] Encounter Details Date Type Department Care Team (Late st Contact Info) Description 08/20/2022 Orders Only [facility] Internal Medicine - Family Medicine [address] [place] [address] [place] Verdugo DO [address] [place] [address] Social History Tobacco Use Types Packs/Day Years [...] - Family Medicine [address] [place] [address] [place] Verdugo DO [address] [place] [address] 09/16/2025 8:00 AM EDT Office Visit [facility], A Department of [facility] [address] [place] [address] Nick Bailey MD [address] [place] [address] 02/24/2026 3:00 PM EDT Ophthalmology Imaging [facility] [address] [place] [address] 02/24/2026 3:10 PM EDT Office Visit [facility] [address] [place] [address] [place] Thakur MD [address] [place], [place] [phone] documented as of this encounter Visit Diagnoses Not on filedocumented in this encounter Care Teams Rug Measurer Relationship Specialty Start Date End Date [place] Verdugo DO [address] [place] [address] PCP - General Internal Medicine 08/24/21 documented as of this encounter
== END 2025-06-12 10:27 | disposition home or self-care (01) ==
LOC: WC 10:28
PROVIDERS: PCP Internal Medicine; Visit Provider Physician Assistant
DX: E11.621 Type 2 diabetes mellitus with foot ulcer (principal); L97.422 Non-pressure chronic ulcer of left heel and midfoot with fat layer exposed; L97.412 Non-pressure chronic ulcer of right heel and midfoot with fat layer exposed
CPT/HCPCS: 11043

== ENCOUNTER 2025-06-19 10:26 | Outpatient (OUT) | payer OTHER, SELFPAY ==
--- OUTSIDE RECORDS SUMMARY | 2025-06-19 10:29 | XMS_ITS | Encounter Summary ---
Author Organization [employer] s tem Address [facility][id number] [address] [place] [address] Care Team Providers Care Aircraft Quality Control Inspector Name Role Phone [place] Verdugo Primary Care Provider [phone] Encounter Details Date Type Department Care Team (Late st Contact Info) Description 01/09[facility] [address] [place] [address] Anthony Martinez CMA Social History Tobacco Use [...] I called pt to verify a extended [employer]/ [employer]? documented in this encounter Plan of Treatment Upcoming Encounters Date Type Department Care Team (Late st Contact Info) Description 07/09/2025 3:15 PM EDT Office Visit [facility] - Family Medicine [address] [place] [address] [place] Verdugo DO [address] [place] [address] 09/16/2025 8:00 AM EDT Office Visit [facility], A Department of [facility] [address] [place] [address] Nick Bailey MD [address] [place] [address] 02/24/2026 3:00 PM EDT Ophthalmology Imaging [facility] [address] [place] [address] 02/24/2026 3:10 PM EDT Office Visit [facility] [address] [place] [address] [place] Thakur MD [address] [place] [address] documented as of this encounter Visit Diagnoses Not on filedocumented in this encounter Additional Health Concerns Assessment Noted Time PHQ-9 Depression Total Score: 0 01/12/20 24 9:53 AM EST documented as of this encounter Care Teams Aircraft Quality Control Inspector Relationship Specialty Start Date End Date [place] Verdugo DO [address] [place] [address] PCP - General Internal Medicine 08/24/21 documented as of this encounter
--- OUTSIDE RECORDS SUMMARY | 2025-06-19 10:29 | XMS_ITS | Encounter Summary ---
Author Organization [facility] [employer] s tem Address [facility]-[id number] [address] [place] [address] Care Team Providers Care Machine Hostler Name Role Phone [place] Verdugo DO Primary Care Provider [phone] Encounter Details Date Type Department Care Team (Late st Contact Info) Description 09/21/2023 Orders Only [facility] - Family Medicine [address] [place] [address] [place] Verdugo DO [address] [place] [address] Social History Tobacco Use Types Packs/Day Years [...] - Family Medicine [address] [place] [address] [place] Verdugo DO [address] [place] [address] 09/16/2025 8:00 AM EDT Office Visit [facility], A Department of [facility] [address] [place] [address] Nick Bailey MD [address] [place] [address] 02/24/2026 3:00 PM EDT Ophthalmology Imaging [facility] [address] [place] [address] 02/24/2026 3:10 PM EDT Office Visit [facility] [address] [place] [address] [place] Thakur MD [address] [place] [address] documented as of this encounter Visit Diagnoses Not on filedocumented in this encounter Additional Health Concerns Assessment Noted Time PHQ-9 Depression Total Score: 0 08/23/20 23 8:51 AM EDT documented as of this encounter Care Teams Machine Hostler Relationship Specialty Start Date End Date [place] Verdugo DO [address] [place] [address] PCP - General Internal Medicine 08/24/21 documented as of this encounter
--- OUTSIDE RECORDS SUMMARY | 2025-06-19 10:30 | XMS_ITS | Encounter Summary ---
Author Organization [employer] s tem Address [facility]-[id number] [address] [place] [address] Care Team Providers Care Senior Gis Analyst Name Role Phone [place] Verdugo DO Primary Care Provider [phone] Encounter Details Date Type Department Care Team (Late Contact Info) Description 07/14/2023 Orders Only [facility] Internal [facility] - Family Medicine [address] [place] [address] External, Scanning Provider Social History Tobacco Use [...] - Family Medicine [address] [place] [address] [place] Verdugo DO [address] [place] [address] 09/16/2025 8:00 AM EDT Office Visit [facility], [facility] Department of [facility] [address] [place] [address] Nick Bailey MD [address] [place] [address] 02/24/2026 3:00 PM EDT Ophthalmology Imaging [facility] [address] [place] [address] 02/24/2026 3:10 PM EDT Office Visit [facility] [address] [place] [address] [place] Thakur MD [address] [place], [place] [address] [phone] documented as of this encounter Procedures Procedure [...] documented as of this encounter Care Teams Senior Gis Analyst Relationship Specialty Start Date End Date [place] Verdugo DO [address] [place] [address] PCP - General Internal Medicine 08/24/21 documented as of this encounter
--- OUTSIDE RECORDS SUMMARY | 2025-06-19 10:30 | XMS_ITS | Clinical Summary ---
Author Organization [facility] tem Address [facility]-[id number] [address] [place] [address] Care Team Providers Care Piping Engineer Name Role Phone [place] Verdugo Primary Care Provider [phone] Allergies Active Allergy Reactions Criticality Noted Date [...] injectionIndicatio ns:Type 1 diabetes mellitus with nephropathy ([facility]) USE 60 UNITS DAILY VIA INSULIN PUMP 90 mL 3 09/30/20 23 Active dlxmg-qwdhz-8-dha- epa-lipids (KRILL OIL) 839-93-31-50 mg capsule Take by mouth. Acti ve [...] Refill [facility] [address] [place] [address] [place] Thakur MD from Last 3 Months Immunizations Immunization Administration Dates Next Due Influenza (IM) Preservative Free 11/10/2016,1211/2014 Influenza, Im Trivalent Preservative 08/07/2014 Influenza, Injectable, [...] Description 07/09/2025 3:15 PM EDT Office Visit [facility] Internal Medicine - Family Medicine [address] [place] [address] [place] Verdugo DO [address] [place] [address] 09/16/2025 8:00 AM EDT Office Visit [facility], A Department of [facility] [address] [facility] [address] [place] [address] Nick Bailey MD [address] [place] [address] 02/24/2026 3:00 PM EDT Ophthalmology Imaging [facility] [address] [place] [address] 02/24/2026 3:10 PM EDT Office Visit [facility] [address] [place] [address] [place] Thakur MD [address] [place], [place] [address] [phone] Health Maintenance Due Date Last Done Comments [...] Devices Not on file Insurance [employer] Care Teams Piping Engineer Relationship Specialty Start Date End Date [place] Verdugo DO [address] [place] [address] PCP - General Internal Medicine 08/24/21
--- OUTSIDE RECORDS SUMMARY | 2025-06-19 10:30 | XMS_ITS | Encounter Summary ---
Author Organization [employer] s tem Address [facility]-[id number] [address] [place] [address] Care Team Providers Care Vacuum Spindle Sander Name Role Phone [place] Verdugo DO Primary Care Provider [phone] Reason for Visit * Reason Comments Med Refill Encounter Details Date Type Department Care Team (Late st Contact Info) Description 10/07/2022 Refill [facility] - Family Medicine [address] [place] [address] Lisa Winter, TONY-BUSINESS CONSULTANT [address] [place] [id number] Social History Tobacco Use Types Packs/Day Years [...] Medicine - Family Medicine [address] [place] [address] [place] Verdugo DO [address] [facility] [place], [place] [address] 09/16/2025 8:00 AM EDT Office Visit [facility], [facility] Department of [facility] [address] [place] [address] Nick Bailey MD [address] [place], [place] [phone] 02/24/2026 3:00 PM EDT Ophthalmology Imaging [facility] [address] [place] [address] 02/24/2026 3:10 PM EDT Office Visit [facility] [address] [place] [address] [place] Thakur MD [address] [place], [place] [phone] documented as of this encounter Visit Diagnoses Not on filedocumented in this encounter Care Teams Vacuum Spindle Sander Relationship Specialty Start Date End Date [place] Verdugo DO [address] [place] [address] PCP - General Internal Medicine 08/24/21 documented as of this encounter
--- OUTSIDE RECORDS SUMMARY | 2025-06-19 10:30 | XMS_ITS | Encounter Summary ---
Author Organization [facility] [employer] s tem Address [facility]-[id number] [address] [place] [address] Care Team Providers Care Concrete Stone Finishing Supervisor Name Role Phone [place] Verdugo DO Primary Care Provider [phone] Encounter Details Date Type Department Care Team (Late Contact Info) Description 03/14/2023 Orders Only [facility] Internal [facility] - Family Medicine [address] [place] [address] [place] Verdugo DO [address] [place] [address] Social History Tobacco Use Types Packs/Day Years [...] Internal Medicine - Family Medicine [address] [place] [address] [place] Verdugo DO [address] [place] [address] 09/16/2025 8:00 AM EDT Office Visit [facility], A Department of [facility] [address] [place] [address] Nick Bailey MD [address] [place] [address] 02/24/2026 3:00 PM EDT [facility] [address] [place] [address] 02/24/2026 3:10 PM EDT Office Visit [facility] [address] [place] [address] [place] Thakur MD [address] [place] [address] documented as of this encounter Visit Diagnoses Not on filedocumented in this encounter Additional Health Concerns Assessment Noted Time PHQ-9 Depression Total Score: 0 03/03/20 23 8:51 AM EDT documented as of this encounter Care Teams Concrete Stone Finishing Supervisor Relationship Specialty Start Date End Date [place] Verdugo DO [address] [place] [address] PCP - General Internal Medicine 08/24/21 documented as of this encounter
--- OUTSIDE RECORDS SUMMARY | 2025-06-19 10:30 | XMS_ITS | Encounter Summary ---
Author Organization [employer] Address [facility][id number] [address] [place] [address] Care Team Providers Care Travel Money Advisor Name Role Phone [place] Verdugo Primary Care Provider [phone] Reason for Visit * Reason Onset Date Comments Med Refill 05/24/2024 Encounter Details Date Type Department Care Team (Late st Contact Info) Description 05/24/2024 Refill [facility] - Family Medicine [address] [place] [address] Sena Gregg CMA Diabetic peripheral neuropathy (SELECT [...] Internal Medicine - Family Medicine [address] [place] [address] [place] Verdugo DO [address] [place] [address] 09/16/2025 8:00 AM EDT Office Visit [facility], A Department of [place] [address] [place] [address] Nick Bailey MD [address] [place] [address] 02/24/2026 3:00 PM EDT [facility] [address] [place] [address] 02/24/2026 3:10 PM EDT Office Visit [facility] [address] [place] [address] Newton Thakur MD [address] [place] [address] documented as of this encounter Visit Diagnoses Diagnosis Diabetic peripheral neuropathy ([facility]) Type II or unspecified type diabetes mellitus with neurological manifestations, not stated as uncontrolled documented in this encounter Additional Health Concerns Assessment Noted Time PHQ-9 Depression Total Score: 0 01/12/20 24 9:53 AM EST documented as of this encounter Care Teams Travel Money Advisor Relationship Specialty Start Date End Date [place] Verdugo DO [address] [place] [address] PCP - General Internal Medicine 08/24/21 documented as of this encounter
--- OUTSIDE RECORDS SUMMARY | 2025-06-19 10:30 | XMS_ITS | Encounter Summary ---
Author Organization [facility] [employer] s tem Address [facility][id number] [address] [place] [address] Care Team Providers Care Lead Manufacturing Engineer Name Role Phone [place] Verdugo DO Primary Care Provider [phone] Encounter Details Date Type Department Care Team (Late st Contact Info) Description 03/22/2023 Orders Only [facility] Internal [facility] - Family Medicine [address] [place] [address] [place] Verdugo DO [address] [place] [address] Spondylosis of lumbar region without myelopathy or [...] Internal Medicine - Family Medicine [address] [place] [address] [place] Verdugo DO [address] [place] [address] 09/16/2025 8:00 AM EDT Office Visit [facility], A Department of [facility] [address] [place] [address] Nick Bailey MD [address] [place] [address] 02/24/2026 3:00 PM EDT Ophthalmology Imaging [facility] [address] [place] [address] 02/24/2026 3:10 PM EDT Office Visit [facility] [address] [place] [address] [place] Thakur MD [address] [place] [address] documented as of this encounter Visit Diagnoses Diagnosis 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
--- OUTSIDE RECORDS SUMMARY | 2025-06-19 10:30 | XMS_ITS | Clinical Summary ---
Author Organization [facility] Address [address] [place] [address] Phone Care Team Providers Care Closet Builder Name Role Phone Unavailable Primary Care Provider [...]
--- OUTSIDE RECORDS SUMMARY | 2025-06-19 10:30 | XMS_ITS | Clinical Summary ---
Author Organization [facility] Address [address], [address] [place] [address] Care Team Providers Care Rim Fire Priming Operator Name Role Phone Newton Verdugo DO Primary Care Provider [phone] Allergies Active Allergy Reactions Criticality Noted Date [...] on file Insurance [employer] Care Teams Rim Fire Priming Operator Relationship Specialty Start Date End Date Newton Verdugo DO PCP - General 09/28/13
--- OUTSIDE RECORDS SUMMARY | 2025-06-19 10:30 | XMS_ITS | Encounter Summary ---
Author Organization [facility] s tem Address [id number] [address] [place] [address] Care Team Providers Care Ice Cream Truck Driver Name Role Phone Newton Verdugo DO Primary Care Provider [phone] Encounter Details Date Type Department Care Team (Late st Contact Info) Description 12/13/2023 Orders Only [facility] Internal [facility] - Family Medicine [address] [place] [address] Newton Verdugo DO [address] [place] [address] Social History Tobacco Use Types Packs/Day Years [...] - Family Medicine [address] [place] [address] Newton Verdugo DO [address] [place] [address] 09/16/2025 8:00 AM EDT Office Visit [facility], A Department of [facility] [address] [place] [address] Nick Bailey MD [address] [place] [address] 02/24/2026 3:00 PM EDT Ophthalmology Imaging [facility] [address] [place] [address] 02/24/2026 3:10 PM EDT Office Visit [facility] [address] [place] [address] Newton Thakur MD [address] [place] [address] documented as of this encounter Visit Diagnoses Not on filedocumented in this encounter Additional Health Concerns Assessment Noted Time PHQ-9 Depression Total Score: 0 08/23/20 23 8:51 AM EDT documented as of this encounter Care Teams Ice Cream Truck Driver Relationship Specialty Start Date End Date Newton Verdugo DO [address] [place] [address] PCP - General Internal Medicine 08/24/21 documented as of this encounter
--- OUTSIDE RECORDS SUMMARY | 2025-06-19 10:30 | XMS_ITS | Encounter Summary ---
Author Organization [employer] s tem Address [facility]-[id number] [address] [place] [address] Care Team Providers Care Hop Strainer Name Role Phone Newton Verdugo Primary Care Provider [phone] Encounter Details Date Type Department Care Team (Late st Contact Info) Description 03/21/2023 Orders Only [facility] Internal [facility] - Family Medicine [address] [place] [address] Emeli Gonsalves CMA Spinal stenosis of lumbar [...] - Family Medicine [address] [place] [address] Newton Verdugo, [address] [facility] [place] [address] 09/16/2025 8:00 AM EDT Office Visit [facility], A Department of [facility] [address] [place] [address] Nick Bailey MD [address] [place] [address] 02/24/2026 3:00 PM EDT Ophthalmology Imaging [facility] [address] [place] [address]/24/2026 3:10 PM EDT [facility] [address] [place] [address] Newton Thakur MD [address] [place] [address] documented as of this encounter Procedures Procedure [...] documented as of this encounter Care Teams Hop Strainer Relationship Specialty Start Date End Date Newton Verdugo DO [address] [place] [address] PCP - General Internal Medicine 08/24/21 documented as of this encounter
--- OUTSIDE RECORDS SUMMARY | 2025-06-19 10:30 | XMS_ITS | Encounter Summary ---
Author Organization [facility] Address [facility] [place] [place]-[id number] [address] [place] [address] Care Team Providers Care Plugger Name Role Phone Newton Verdugo DO Primary Care Provider [phone] Encounter Details Date Type Department Care Team (Late st Contact Info) Description 01/12/2024 Orders Only [facility] Internal [facility] - Family Medicine [address] [place] [address] Newton Verdugo DO [address] [place] [address] Social History Tobacco Use Types Packs/Day Years [...] - Family Medicine [address] [place] [address] Newton Verdugo DO [address] [place] [address] 09/16/2025 8:00 AM EDT Office Visit [facility], A Department of [facility] [address] [place] [address] Nick Bailey MD [address] [place] [address] 02/24/2026 3:00 PM EDT Ophthalmology Imaging [facility] [address] [place] [address] 02/24/2026 3:10 PM EDT Office Visit [facility] [address] [place] [address] Newton Thakur MD [address] [place] [address] documented as of this encounter Visit Diagnoses Not on filedocumented in this encounter Additional Health Concerns Assessment Noted Time PHQ-9 Depression Total Score: 0 01/12/20 24 9:53 AM EST documented as of this encounter Care Teams Plugger Relationship Specialty Start Date End Date Newtno Verdugo DO [address] [place] [address] PCP - General Internal Medicine 08/24/21 documented as of this encounter
--- OUTSIDE RECORDS SUMMARY | 2025-06-19 10:30 | XMS_ITS | Encounter Summary ---
Author Organization [employer] s tem Address [facility]-[id number] [address] [place] [address] Care Team Providers Care Pet Technologist Name Role Phone Newton Verdugo DO Primary Care Provider [phone] Encounter Details Date Type Department Care Team (Late st Contact Info) Description 12/06/2022 Orders Only [facility] Internal [facility] - Family Medicine [address] [place] [address] Newton Verdugo DO [address] [place] [address] Social History Tobacco Use Types Packs/Day Years [...] - Family Medicine [address] [place] [address] Newton Verdugo DO [address] [place] [address] 09/16/2025 8:00 AM EDT Office Visit [facility], A Department of [facility] [address] [place] [address] Nick Bailey MD [address] [place] [address] 02/24/2026 3:00 PM EDT Ophthalmology [facility] [address] [place] [address] 02/24/2026 3:10 PM EDT Office Visit [facility] [address] [place] [address] Newton Thakur MD [address] [place], [place] [address] [phone] documented as of this encounter Visit Diagnoses Not on filedocumented in this encounter Care Teams Pet Technologist Relationship Specialty Start Date End Date Newton Verdugo DO [address] [place] [address] PCP - General Internal Medicine 08/24/21 documented as of this encounter
--- OUTSIDE RECORDS SUMMARY | 2025-06-19 10:30 | XMS_ITS | Encounter Summary ---
Author Organization [employer] Address [facility]-[id number] [address] [place] [address] Care Team Providers Care Turner Splitter Machine Operator Name Role Phone Newton Verdugo DO Primary Care Provider [phone] Reason for Visit * Reason Comments Med Refill Encounter Details Date Type Department Care Team (Late st Contact Info) Description 02/16/2023 Refill [facility] - Family Medicine [address] [place] [address] Newton Verdugo DO [address] [place] [address] Diabetic peripheral neuropathy ([facility]) Social History Tobacco Use Types Packs/Day Years [...] Description 07/09/2025 3:15 PM EDT Office Visit [facility] Internal Medicine - Family Medicine [address] [place] [address] Newton Verdugo DO [address] [place] [address] 09/16/2025 8:00 AM EDT [facility] Department [facility] [address] [place] [address] Nick Bailey MD [address] [place] [address] 02/24/2026 3:00 PM EDT Ophthalmology Imaging [facility] [address] [place] [address]/24/2026 3:10 PM EDT Office Visit [facility] [address] [place] [address] Newton Thakur MD [address] [place] [address] (Work) documented as of this encounter Visit Diagnoses Diagnosis Diabetic peripheral neuropathy ([facility]) Type II or unspecified type diabetes mellitus with neurological manifestations, not stated as uncontrolled documented in this encounter Care Teams Turner Splitter Machine Operator Relationship Specialty Start Date End Date Newton Verdugo DO [address] [place] [address] PCP - General Internal Medicine 08/24/21 documented as of this encounter
--- OUTSIDE RECORDS SUMMARY | 2025-06-19 10:30 | XMS_ITS | Encounter Summary ---
Author Organization [employer] s tem Address [facility][id number] [address] [place] [address] Care Team Providers Care High Heel Builder Name Role Phone Newton Verdugo DO Primary Care Provider [phone] Encounter Details Date Type Department Care Team (Late st Contact Info) Description 08/20/2022 Orders Only [facility] - Family Medicine [address] [place] [address] Newton Verdugo DO [address] [place] [address] Social History Tobacco Use Types Packs/Day Years [...] - Family Medicine [address] [place] [address] Newton Verdugo DO [address] [place] [address] 09/16/2025 8:00 AM EDT Office Visit [facility], A Department of [facility] [address] [place] [address] Nick Bailey MD [address] [place] [address] 02/24/2026 3:00 PM EDT Ophthalmology Imaging [facility] [address] [place] [address] 02/24/2026 3:10 PM EDT Office Visit [facility] [address] [place] [address] Newton Thakur MD [address] [place], [place] [phone] documented as of this encounter Visit Diagnoses Not on filedocumented in this encounter Care Teams High Heel Builder Relationship Specialty Start Date End Date Newton Verdugo DO [address] [place] [address] PCP - General Internal Medicine 08/24/21 documented as of this encounter
--- OUTSIDE RECORDS SUMMARY | 2025-06-19 10:30 | XMS_ITS | Encounter Summary ---
Author Organization [employer] s tem Address [facility] [id number] [address] [place] [address] Care Team Providers Care Group Dynamics Instructor Name Role Phone Newton Verdugo DO Primary Care Provider [phone] Reason for Visit * Reason Comments Med Refill Encounter Details Date Type Department Care Team (Late st Contact Info) Description 11/03/2022 Refill [facility] - Family Medicine [address] [place] [address] Lisa Winter, TONY-TRANSFER IRON OPERATOR [address] [id number] Neuropathy (Primary Dx) Social History Tobacco Use [...] Medicine - Family Medicine [address] [place] [address] Newton Verdugo DO [address] [facility] [place] [address] 09/16/2025 8:00 AM EDT [facility] Department of [facility] [address] [place] [address] Nick Bailey MD [address] [place] [address] 02/24/2026 3:00 PM EDT [facility] [address] [place] [address] 02/24/2026 3:10 PM EDT [facility] [address] [place] [address] Newton Thakur MD [address] [place], [place] [phone] documented as of this encounter Visit Diagnoses Diagnosis Neuropathy- Primary Mononeuritis of unspecified site documented in this encounter Care Teams Group Dynamics Instructor Relationship Specialty Start Date End Date Newton Verdugo DO [address] [place] [address] PCP - General Internal Medicine 08/24/21 documented as of this encounter
--- OUTSIDE RECORDS SUMMARY | 2025-06-19 10:30 | XMS_ITS | Encounter Summary ---
Author Organization [facility] s tem Address [facility][id number] [address] [place] [address] Care Team Providers Care Wind Operations Supervisor Name Role Phone Newton Verdugo DO Primary Care Provider [phone] Encounter Details Date Type Department Care Team (Late st Contact Info) Description 02/28/2024 Orders Only [facility] - Family Medicine [address] [place] [address] Newton Verdugo DO [address] [place] [address] Social History Tobacco Use Types Packs/Day Years [...] - Family Medicine [address] [place] [address] Newton Verdugo DO [address] [place] [address] 09/16/2025 8:00 AM EDT Office Visit [facility], A Department of [facility] [address] [place] [address] Nick Bailey MD [address] [place] [address] 02/24/2026 3:00 PM EDT Ophthalmology Imaging [facility] [address] [place] [address] 02/24/2026 3:10 PM EDT Office Visit [facility] [address] [place] [address] Newton Thakur MD [address] [place] [address] documented as of this encounter Visit Diagnoses Not on filedocumented in this encounter Additional Health Concerns Assessment Noted Time PHQ-9 Depression Total Score: 0 01/12/20 24 9:53 AM EST documented as of this encounter Care Teams Wind Operations Supervisor Relationship Specialty Start Date End Date Newton Verdugo DO [address] [place] [address] PCP - General Internal Medicine 08/24/21 documented as of this encounter
--- OUTSIDE RECORDS SUMMARY | 2025-06-19 10:30 | XMS_ITS | Encounter Summary ---
Author Organization [facility] [employer] Sys tem Address [facility] [place]-[id number] [address] [place] [address] Care Team Providers Care Numerical Control Router Operator Name Role Phone Newton Verdugo DO Primary Care Provider [phone] Encounter Details Date Type Department Care Team (Late st Contact Info) Description 10/18/2023 Orders Only [facility] Internal Medicine - Family Medicine [address] [place] [address] Newton Verdugo DO [address] [place] [address] Special screening for malignant neoplasm of colon [...] Internal Medicine - Family Medicine [address] [place] [address] Newton Verdugo DO [address] [place] [address] 09/16/2025 8:00 AM EDT Office Visit [facility], A Department of [facility] [address] [place] [address] Nick Bailey MD [address] [place] [address] 02/24/2026 3:00 PM EDT Ophthalmology Imaging [facility] [address] [place] [address] 02/24/2026 3:10 PM EDT Office Visit [facility] [address] [place] [address] Newton Thakur MD [address] [place] [address] documented as of this encounter Visit Diagnoses Diagnosis Special screening for malignant neoplasm of colon- Primary Special screening for malignant neoplasms, colon documented in this encounter Additional Health Concerns Assessment Noted Time PHQ-9 Depression Total Score: 0 08/23/20 23 8:51 AM EDT documented as of this encounter Care Teams Numerical Control Router Operator Relationship Specialty Start Date End Date Newton Verdugo DO [address] [place] [address] PCP - General Internal Medicine 08/24/21 documented as of this encounter
--- OUTSIDE RECORDS SUMMARY | 2025-06-19 10:30 | XMS_ITS | Encounter Summary ---
Author Organization [facility] Address [facility][id number] [address] [place] [address] Care Team Providers Care Polysomnographic Technologist Name Role Phone Newton Verdugo DO Primary Care Provider [phone] Reason for Visit * Reason Comments Med Refill Encounter Details Date Type Department Care Team (Late st Contact Info) Description 09/19/2024 Refill [facility] - Family Medicine [address] [place] [address] Newton Verdugo DO [address] [place] [address] Type 1 diabetes mellitus with nephropathy ([facility]) Social History Tobacco Use Types Packs/Day Years [...] Internal Medicine - Family Medicine [address] [place] [address] Newton Verdugo DO [address] [place] [address] 09/16/2025 8:00 AM EDT Office Visit [facility], A [facility] of [facility] [address] [place] [address] Nick Bailey MD [address] [place] [address] 02/24/2026 3:00 PM EDT Ophthalmology Imaging [facility] [address] [place] [address] 02/24/2026 3:10 PM EDT Office Visit [facility] [address] [place] [address] Newton Thakur MD [address] [place] [address] documented as of this encounter Visit Diagnoses Diagnosis Type 1 diabetes mellitus with nephropathy ([facility]) documented in this encounter Additional Health Concerns Assessment Noted Time PHQ-9 Depression Total Score: 0 01/12/20 24 9:53 AM EST documented as of this encounter Care Teams Polysomnographic Technologist Relationship Specialty Start Date End Date Newton Verdugo DO [address] [place] [address] PCP - General Internal Medicine 08/24/21 documented as of this encounter
--- OUTSIDE RECORDS SUMMARY | 2025-06-19 10:30 | XMS_ITS | Encounter Summary ---
Author Organization [employer] s tem Address [facility]-[id number] [address] [place] [address] Care Team Providers Care Ciaio Counter Molder Name Role Phone Newton Verdugo Primary Care Provider [phone] Encounter Details Date Type Department Care Team (Late st Contact Info) Description 10/18/[facility] Medicine [address] [place] [address] Peggy Sheridan CMA Social History Tobacco Use [...] Internal Medicine - Family Medicine [address] [place] [address] Newton Verdugo DO [address] [place] [address] 09/16/2025 8:00 AM EDT Office Visit [facility], A Department of [facility] [address] [place] [address] Nick Bailey MD [address] [place] [address] 02/24/2026 3:00 PM EDT Ophthalmology Imaging [facility] [address] [place] [address]/24/2026 3:10 PM EDT Office Visit [facility] [address] [place] [address] Newton Thakur MD [address] [place] [address] documented as of this encounter Visit Diagnoses Not on filedocumented in this encounter Additional Health Concerns Assessment Noted Time PHQ-9 Depression Total Score: 0 08/23/20 8:51 AM EDT documented as of this encounter Care Teams Ciaio Counter Molder Relationship Specialty Start Date End Date Newton Verdugo DO [address] [place] [address] PCP - General Internal Medicine 08/24/21 documented as of this encounter
--- OUTSIDE RECORDS SUMMARY | 2025-06-19 10:30 | XMS_ITS | Encounter Summary ---
Author Organization [facility] [employer] s tem Address [facility][id number] [address] [place] [address] Care Team Providers Care Air Analysis Engineering Technician Name Role Phone Newton Verdugo DO Primary Care Provider [phone] Encounter Details Date Type Department Care Team (Late st Contact Info) Description 08/23/2023 Orders Only [facility] Internal [facility] - Family Medicine [address] [place] [address] Newton Verdugo DO [address] [place] [address] Mixed hyperlipidemia (Primary Dx) Social History Tobacco [...] - Family Medicine [address] [place] [address] Newton Verdugo DO [address] [place] [address] 09/16/2025 8:00 AM EDT Office Visit [facility], A Department of [facility] [address] [place] [address] Nick Bailey MD [address] [place] [address] 02/24/2026 3:00 PM EDT Ophthalmology Imaging [facility] [address] [place] [address] 02/24/2026 3:10 PM EDT Office Visit [facility] [address] [place] [address] Newton Thakur MD [address] [place] [address] documented as of this encounter Visit Diagnoses Diagnosis Mixed hyperlipidemia- Primary documented in this encounter Additional Health Concerns Assessment Noted Time PHQ-9 Depression Total Score: 0 08/23/20 23 8:51 AM EDT documented as of this encounter Care Teams Air Analysis Engineering Technician Relationship Specialty Start Date End Date Newton Verdugo DO [address] [place] [address] PCP - General Internal Medicine 08/24/21 documented as of this encounter
--- OUTSIDE RECORDS SUMMARY | 2025-06-19 10:30 | XMS_ITS | Patient Health Record ---
Author Organization [facility] Address [address] [place] [address] Care Team Providers Care Manufacturing Engineering Director Name Role Phone Newton Verdugo DO Primary Care Provider Unavailabl e Reason For Referral No Information Problems Problem Type SNOMED Code ICD Code Onset Dates Problem Status W/U Status Risk Notes Problem Foot ulcer due to type 1 diabetes mellitus (4179833486635 [id number]) Type 1 diabetes mellitus with foot ulcer (E10.621) Active confirmed Problem Foot ulcer due to type 2 diabetes mellitus (2028375087024 ) Type 2 diabetes mellitus with foot ulcer (E11.621) Active confirmed Problem Chronic ulcer of foot (911753439) 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
--- OUTSIDE RECORDS SUMMARY | 2025-06-19 10:30 | XMS_ITS | Encounter Summary ---
Author Organization [facility] [employer] s tem Address [facility] [place]-[id number] [address] [place] [address] Care Team Providers Care Cell Tender Name Role Phone Newton Verdugo DO Primary Care Provider [phone] Encounter Details Date Type Department Care Team (Late st Contact Info) Description 03/03/2023 Orders Only [facility] Internal Medicine - Family Medicine [address] [place] [address] Newton Verdugo DO [address] [place] [address] Chronic hyperkalemia (Primary Dx) Social History Tobacco [...] Internal Medicine - Family Medicine [address] [place] [address] Newton Verdugo DO [address] [place] [address] 09/16/2025 8:00 AM EDT Office Visit [facility], A Department of [facility] [address] [place] [address] Nick Bailey MD [address] [place] [address] 02/24/2026 3:00 PM EDT [facility] [address] [place] [address] 02/24/2026 3:10 PM EDT Office Visit [facility] [address] [place] [address] Newton Thakur MD [address] [place] [address] documented as of this encounter Visit Diagnoses Diagnosis Chronic hyperkalemia- Primary Hyperpotassemia documented in this encounter Additional Health Concerns Assessment Noted Time PHQ-9 Depression Total Score: 0 03/03/20 23 8:51 AM EDT documented as of this encounter Care Teams Cell Tender Relationship Specialty Start Date End Date Newton Verdugo DO [address] [place] [address] PCP - General Internal Medicine 08/24/21 documented as of this encounter
--- OUTSIDE RECORDS SUMMARY | 2025-06-19 10:30 | XMS_ITS | Encounter Summary ---
Author Organization [employer] s tem Address [id number] [address] [place] [address] Care Team Providers Care Cooper Helper Name Role Phone Newton Verdugo DO Primary Care Provider Encounter Details Date Type Department Care Team (Late Contact Info) Description 06/06/2023 [facility] [address] [place] [address] Newton Verdugo DO [address] [place] [address] Social History Tobacco Use Types Packs/Day Years [...] Description 07/09/2025 3:15 PM EDT Office Visit [facility] Internal Medicine - Family Medicine [address] [place] [address] Newton Verdugo DO [address] [place] [address] 09/16/2025 8:00 AM EDT Office Visit [facility] Department of [facility] [address] [place] [address] Nick Bailey MD [address] [place] [address] 02/24/2026 3:00 PM EDT Ophthalmology Imaging [facility] [address] [place] [address] 02/24/2026 3:10 PM EDT Office Visit [facility] [address] [place] [address] Newton Thakur MD [address] [place] [address] documented as of this encounter Visit Diagnoses Not on filedocumented in this encounter Additional Health Concerns Assessment Noted Time PHQ-9 Depression Total Score: 0 03/03/20 23 8:51 AM EDT documented as of this encounter Care Teams Cooper Helper Relationship Specialty Start Date End Date Newton Verdugo DO [address] [place] [address] PCP - General Internal Medicine 08/24/21 documented as of this encounter
--- OUTSIDE RECORDS SUMMARY | 2025-06-19 10:30 | XMS_ITS | Clinical Summary ---
Author Organization [facility] Address [address] [place] [address] Care Team Providers Care Medical Coder Name Role Phone Unavailable Primary Care Provider [...] season) 2024 Influenza Vaccine (#1) 2025 Insurance [facility] PPO
--- OUTSIDE RECORDS SUMMARY | 2025-06-19 10:30 | XMS_ITS | Encounter Summary ---
Author Organization [employer] s tem Address [facility] [place]-[id number] [address] [place] [address] Care Team Providers Care Whistle Punk Name Role Phone Newton Verdugo DO Primary Care Provider [phone] Reason for Visit * Reason Comments Med Refill Encounter Details Date Type Department Care Team (Late Contact Info) Description 08/20/2022 Refill [facility] Internal Medicine - Family Medicine [address] [place] [address] Newton Verdugo DO [address] [place] [address] Diabetic peripheral neuropathy ([facility]) (Primary Dx); Type 1 diabetes mellitus with nephropathy ([facility]) Social History Tobacco Use Types Packs/Day [...] Medicine - Family Medicine [address] [place] [address] Newton Verdugo DO [address] [place] [address] 09/16/2025 8:00 AM EDT Office Visit [facility], [facility] Department of [facility] [address] [place] [address] Nick Bailey MD [address], [address] [place] [address] 02/24/2026 3:00 PM EDT [facility] [address] [place] [address] 02/24/2026 3:10 PM EDT [facility] [address] [place] [address] Newton Thakur MD [address] [place] [address] documented as of this encounter Visit Diagnoses Diagnosis Diabetic peripheral neuropathy (CMS-HCC)- Primary Type II or unspecified type diabetes mellitus with neurological manifestations, not stated as uncontrolled Type 1 diabetes mellitus with nephropathy (CMS-HCC) documented in this encounter Care Teams Whistle Punk Relationship Specialty Start Date End Date Newton Verdugo DO [address] [place] [address] PCP - General Internal Medicine 08/24/21 documented as of this encounter
== END 2025-06-19 10:27 | disposition home or self-care (01) ==
LOC: WC 10:27
PROVIDERS: PCP Internal Medicine; Visit Provider Physician Assistant
DX: E11.621 Type 2 diabetes mellitus with foot ulcer (principal); L97.422 Non-pressure chronic ulcer of left heel and midfoot with fat layer exposed; L97.412 Non-pressure chronic ulcer of right heel and midfoot with fat layer exposed
CPT/HCPCS: G0463

== ENCOUNTER 2025-07-03 09:27 | Outpatient (OUT) | payer OTHER, SELFPAY | END 2025-07-03 09:28 | disposition home or self-care (01) | LOC: WC 09:27 | PROVIDERS: PCP Internal Medicine; Visit Provider Physician Assistant | DX: E11.621 Type 2 diabetes mellitus with foot ulcer (principal); L97.422 Non-pressure chronic ulcer of left heel and midfoot with fat layer exposed; L97.412 Non-pressure chronic ulcer of right heel and midfoot with fat layer exposed | CPT/HCPCS: 11043 ==

== ENCOUNTER 2025-07-17 09:58 | Outpatient (OUT) | payer OTHER, SELFPAY | END 2025-07-17 09:59 | disposition home or self-care (01) | LOC: WC 09:58 | PROVIDERS: PCP Internal Medicine; Visit Provider Physician Assistant | DX: E11.621 Type 2 diabetes mellitus with foot ulcer (principal); L97.422 Non-pressure chronic ulcer of left heel and midfoot with fat layer exposed | CPT/HCPCS: G0463 ==

== ENCOUNTER 2025-07-30 10:29 | Outpatient (OUT) | payer OTHER, SELFPAY | END 2025-07-30 10:30 | disposition home or self-care (01) | LOC: WC 10:31 | PROVIDERS: PCP Internal Medicine; Visit Provider Physician Assistant | DX: E11.621 Type 2 diabetes mellitus with foot ulcer (principal); L97.422 Non-pressure chronic ulcer of left heel and midfoot with fat layer exposed | CPT/HCPCS: G0463 ==

== ENCOUNTER 2025-08-06 08:58 | Outpatient (OUT) | payer OTHER, SELFPAY ==
--- OUTSIDE RECORDS SUMMARY | 2025-08-06 09:00 | XMS_ITS | Encounter Summary ---
Author Organization [employer] s tem Address [facility] [place]-[id number] [address] [place] [address] Care Team Providers Care Talent Recruiter Name Role Phone Newton Verdugo Primary Care Provider [phone] Encounter Details Date Type Department Care Team (Late st Contact Info) Description 01/09/2025 [facility]phone [facility] Medicine [address] [place] [address] Anthony Martinez CMA Social History Tobacco Use [...] I called pt to verify a extended supply Company/ [employer]? documented in this encounter Plan of Treatment Upcoming Encounters Date Type Department Care Team (Late st Contact Info) Description 09/16/2025 8:00 AM EDT Office Visit [facility] Department of [facility] [address] [place] [address] Nick Bailey MD [address], [address] [place] [address] 02/24/2026 3:00 PM EDT Ophthalmology Imaging [facility] [address] [place] [address] 02/24/2026 3:10 PM EDT Office Visit [facility] [address] [place] [address] Newton Thakur MD [address] [place] [address] documented as of this encounter Visit Diagnoses Not on filedocumented in this encounter Additional Health Concerns Assessment Noted Time PHQ-9 Depression Total Score: 0 01/12/20 24 9:53 AM EST documented as of this encounter Care Teams Talent Recruiter Relationship Specialty Start Date End Date Newton Verdugo DO [address] [place] [address] PCP - General Internal Medicine 08/24/21 documented as of this encounter
--- OUTSIDE RECORDS SUMMARY | 2025-08-06 09:01 | XMS_ITS | Encounter Summary ---
Author Organization [facility] Address [facility]-[id number] [address] [place] [address] Care Team Providers Care Commutator Presser Name Role Phone Newton Verdugo Primary Care Provider [phone] Encounter Details Date Type Department Care Team (Late Contact Info) Description 03/21/2023 Orders Only [facility] Internal Medicine - Family Medicine [address] [place] [address] Emeli Gonsalves CMA Spinal stenosis of lumbar [...] Office Visit [facility] Department of [facility] [address] [place] [address] Nick Bailey MD [address] [place] [address] 02/24/2026 3:00 PM EDT Ophthalmology Imaging [facility] [address] [place] [address]/24/2026 3:10 PM EDT Office Visit [facility] [address] [place] [address] Newton Thakur MD [address] [place] [address] (Work) documented as of this encounter Procedures Procedure [...] Neuro, Spine, L-spine N/A Compu man Radiography us Newton Verdugo DO IMG DIAGNOSTIC [...] documented as of this encounter Care Teams Commutator Presser Relationship Specialty Start Date End Date Newton Verdugo DO [facility] [address] [place] [id number] PCP - General Internal Medicine 08/24/21 documented as of this encounter
--- OUTSIDE RECORDS SUMMARY | 2025-08-06 09:01 | XMS_ITS | Encounter Summary ---
Author Organization [facility] [employer] Address [facility]-[id number] [address] [place] [address] Care Team Providers Care Animal Feeder Name Role Phone Newton Verdugo DO Primary Care Provider [phone] Encounter Details Date Type Department Care Team (Late st Contact Info) Description 10/18/2023 Orders Only [facility] Internal Medicine - Family Medicine [address] [place] [address] Newton Verdugo DO [address] [place] [address] Special screening for malignant neoplasm of colon [...] Office Visit [facility], [facility] Department of [facility] [address] [place] [address] Nick Bailey MD [address], [address] [place] [address] 02/24/2026 3:00 PM EDT [facility] [address] [place] [phone] 02/24/2026 3:10 PM EDT [facility] [address] [place] [address] Newton Thakur MD [address] [place] [address] documented as of this encounter Visit Diagnoses Diagnosis Special screening for malignant neoplasm of colon- Primary Special screening for malignant neoplasms, colon documented in this encounter Additional Health Concerns Assessment Noted Time PHQ-9 Depression Total Score: 0 08/23/20 23 8:51 AM EDT documented as of this encounter Care Teams Animal Feeder Relationship Specialty Start Date End Date Newton Verdugo DO [address] [place] [address] PCP - General Internal Medicine 08/24/21 documented as of this encounter
--- OUTSIDE RECORDS SUMMARY | 2025-08-06 09:01 | XMS_ITS | Encounter Summary ---
Author Organization [facility] [employer] Address [facility] [place][id number] [address] [place] [address] Care Team Providers Care Fabrication Manager Name Role Phone Newton Verdugo DO Primary Care Provider [phone] Encounter Details Date Type Department Care Team (Late Contact Info) Description 06/06/2023 Orders Only [facility] Internal Medicine - Family Medicine [address] [place] [address] Newton Verdugo DO [address] [place] [address] Social History Tobacco Use Types Packs/Day Years [...] Department Care Team (Late Contact Info) Description 09/16/2025 8:00 AM EDT Office Visit [facility], A Department of [facility] [address] [facility] [address] [place] [address] Nick Bailey MD [address] [place] [address] 02/24/2026 3:00 PM EDT Ophthalmology Imaging [facility] [address] [place] [address] 02/24/2026 3:10 PM EDT Office Visit [facility] [address] [place] [address] Newton Thakur MD [address] [place] [address] documented as of this encounter Visit Diagnoses Not on filedocumented in this encounter Additional Health Concerns Assessment Noted Time PHQ-9 Depression Total Score: 0 03/03/20 23 8:51 AM EDT documented as of this encounter Care Teams Fabrication Manager Relationship Specialty Start Date End Date Newton Verdugo DO [address] [place] [address] PCP - General Internal Medicine 08/24/21 documented as of this encounter
--- OUTSIDE RECORDS SUMMARY | 2025-08-06 09:01 | XMS_ITS | Encounter Summary ---
Author Organization [employer] s tem Address [facility]-[id number] [address] [place] [address] Care Team Providers Care Manager Office Name Role Phone Newton Verdugo Primary Care Provider [phone] Encounter Details Date Type Department Care Team (Late st Contact Info) Description 10/18/2023 [facility] Medicine [address] [place] [address] Peggy Sheridan CMA Social History Tobacco Use [...] Description 09/16/2025 8:00 AM EDT Office Visit [facility], A Department of [facility] [address] [place] [address] Nick Bailey MD [address], [address] [place] [address] 02/24/2026 3:00 PM EDT Ophthalmology Imaging [facility] [address] [place] [address]/24/2026 3:10 PM EDT Office Visit [facility] [address] [place] [address] Newton Thakur MD [address] [place] [address] documented as of this encounter Visit Diagnoses Not on filedocumented in this encounter Additional Health Concerns Assessment Noted Time PHQ-9 Depression Total Score: 0 08/23/20 23 8:51 AM EDT documented as of this encounter Care Teams Manager Office Relationship Specialty Start Date End Date Newton Verdugo DO [facility] [place] [address] PCP - General Internal Medicine 08/24/21 documented as of this encounter
--- OUTSIDE RECORDS SUMMARY | 2025-08-06 09:01 | XMS_ITS | Clinical Summary ---
Author Organization [facility] Address [address], [address] [place] [address] Care Team Providers Care Wind Development Director Name Role Phone Newton Verdugo DO Primary Care Provider [phone] Allergies Active Allergy Reactions Criticality Noted Date [...] on file Insurance [employer] Care Teams Wind Development Director Relationship Specialty Start Date End Date Newton Verdugo DO PCP - General 09/28/13
--- OUTSIDE RECORDS SUMMARY | 2025-08-06 09:01 | XMS_ITS | Encounter Summary ---
Author Organization [facility] Place[facility] Address [facility] [place]-[id number] [address] [place] [address] Care Team Providers Care Stock Puller Name Role Phone Newton Verdugo DO Primary Care Provider [phone] Encounter Details Date Type Department Care Team (Late Contact Info) Description 07/14/2023 Orders Only [facility] Internal Medicine - Family Medicine [address] [place] [address] External, Scanning Provider Social History Tobacco Use [...] Office Visit [facility], [facility] Department of [facility] [address] [facility] [address] [place] [address] Nick Bailey MD [address] [place] [address] 02/24/2026 3:00 PM EDT Ophthalmology Imaging [facility] [address] [place] [address] 02/24/2026 3:10 PM EDT Office Visit [facility] [address] [place] [address] Newton Thakur MD [address] [place], [place] [address] [phone] documented as of this encounter Procedures Procedure Name Priority Date/Time Associated Diagnosis Comments HM COLOGUARD Routine 07/13/2023 2:55 PM EDT documented in this encounter Results * HM COLOGUARD (07/13/2023 2:55 PM EDT) us Scanning Provider External HEALTH MAINTENANCE nal Result MANUALLY TRANSCRIBED RESULTS documented in this encounter Visit Diagnoses Not on filedocumented in this encounter Additional Health Concerns Assessment Noted Time PHQ-9 Depression Total Score: 0 03/03/20 23 8:51 AM EDT documented as of this encounter Care Teams Stock Puller Relationship Specialty Start Date End Date Newton Verdugo DO [address] [place] [address] PCP - General Internal Medicine 08/24/21 documented as of this encounter
--- OUTSIDE RECORDS SUMMARY | 2025-08-06 09:01 | XMS_ITS | Encounter Summary ---
Author Organization [facility] Address [facility][id number] [address] [place] [address] Care Team Providers Care Outside Sales Account Manager Name Role Phone Newton Verdugo DO Primary Care Provider [phone] Encounter Details Date Type Department Care Team (Late st Contact Info) Description 02/28/2024 Orders Only [facility] Internal Medicine - Family Medicine [address] [place] [address] Newton Verdugo DO [address] [place] [address] Social History Tobacco Use Types Packs/Day Years [...] Description 09/16/2025 8:00 AM EDT Office Visit [facility], [facility] Department of [facility] [address] [place] [address] Nick Bailey MD [address] [place] [address] 02/24/2026 3:00 PM EDT Ophthalmology Imaging [facility] [address] [place] [address] 02/24/2026 3:10 PM EDT Office Visit [facility] [address] [place] [phone] Newton Thakur MD [address] [place], [place] [address] [phone] documented as of this encounter Visit Diagnoses Not on filedocumented in this encounter Additional Health Concerns Assessment Noted Time PHQ-9 Depression Total Score: 0 01/12/20 24 9:53 AM EST documented as of this encounter Care Teams Outside Sales Account Manager Relationship Specialty Start Date End Date Newton Verdugo DO [address] [place] [address] PCP - General Internal Medicine 08/24/21 documented as of this encounter
--- OUTSIDE RECORDS SUMMARY | 2025-08-06 09:01 | XMS_ITS | Encounter Summary ---
Author Organization [facility] Address [facility] [place][id number] [address] [place] [address] Care Team Providers Care Plastic Card Grader Cardroom Name Role Phone Newton Verdugo DO Primary Care Provider [phone] Encounter Details Date Type Department Care Team (Late st Contact Info) Description 08/23/2023 Orders Only [facility] Internal Medicine - Family Medicine [address] [place] [address] Newton Verdugo DO [address] [place] [address] Mixed hyperlipidemia (Primary Dx) Social History Tobacco [...] Office Visit [facility], A Department of [facility] [address] [place] [address] Nick Bailey MD [address] [place] [address] 02/24/2026 3:00 PM EDT Ophthalmology Imaging [facility] [address] [place] [address] 02/24/2026 3:10 PM EDT Office Visit [facility] [address] [place] [address] Newton Thakur MD [address] [place], [place] [address] [phone] documented as of this encounter Visit Diagnoses Diagnosis Mixed hyperlipidemia- Primary documented in this encounter Additional Health Concerns Assessment Noted Time PHQ-9 Depression Total Score: 0 08/23/20 23 8:51 AM EDT documented as of this encounter Care Teams Plastic Card Grader Cardroom Relationship Specialty Start Date End Date Newton Verdugo DO [address] [place] [address] PCP - General Internal Medicine 08/24/21 documented as of this encounter
--- OUTSIDE RECORDS SUMMARY | 2025-08-06 09:01 | XMS_ITS | Encounter Summary ---
Author Organization [facility] [employer] s tem Address [facility]-[id number] [address] [place] [address] Care Team Providers Care Embosser Operator Name Role Phone Newton Verdugo DO Primary Care Provider [phone] Encounter Details Date Type Department Care Team (Late Contact Info) Description 12/06/2022 Orders Only [facility] Internal Medicine - Family Medicine [address] [place] [address] Newton Verdugo DO [address] [place] [address] Social History Tobacco Use Types Packs/Day Years [...] Office Visit [facility], A Department of [facility] [address] [facility] [address] [place] [address] Nick Bailey MD [address], [facility] 1 [place] [address] 02/24/2026 3:00 PM EDT Ophthalmology Imaging [facility] [address] [place] [address] 02/24/2026 3:10 PM EDT Office Visit [facility] [address] [place] [phone] Newton Thakur MD [address] [place] [address] documented as of this encounter Visit Diagnoses Not on filedocumented in this encounter Care Teams Embosser Operator Relationship Specialty Start Date End Date Newton Verdugo DO [address] [place] [address] PCP - General Internal Medicine 08/24/21 documented as of this encounter
--- OUTSIDE RECORDS SUMMARY | 2025-08-06 09:01 | XMS_ITS | Encounter Summary ---
Author Organization [facility] [employer] s tem Address [facility] [place]-[id number] [address] [place] [address] Care Team Providers Care Sleeper Cutter Name Role Phone Newton Verdugo DO Primary Care Provider [phone] Encounter Details Date Type Department Care Team (Late st Contact Info) Description 03/03/2023 Orders Only [facility] Internal Medicine - Family Medicine [address] [place] [address] Newton Verdugo DO [address] [place] [address] Chronic hyperkalemia (Primary Dx) Social History Tobacco [...] Office Visit [facility], A Department of [facility] [address] [place] [address] Nick Bailey MD [address] [place] [address] 02/24/2026 3:00 PM EDT Ophthalmology Imaging [facility] [address] [place] [phone] 02/24/2026 3:10 PM EDT Office Visit [facility] [address] [place] [address] Newton Thakur MD [address] [place], [place] [address] documented as of this encounter Visit Diagnoses Diagnosis Chronic hyperkalemia- Primary Hyperpotassemia documented in this encounter Additional Health Concerns Assessment Noted Time PHQ-9 Depression Total Score: 0 03/03/20 23 8:51 AM EDT documented as of this encounter Care Teams Sleeper Cutter Relationship Specialty Start Date End Date Newton Verdugo DO [address] [place] [address] PCP - General Internal Medicine 08/24/21 documented as of this encounter
--- OUTSIDE RECORDS SUMMARY | 2025-08-06 09:01 | XMS_ITS | Encounter Summary ---
Author Organization [facility] [employer] s tem Address [facility] [id number] [address] [place] [address] Care Team Providers Care Subsorter Name Role Phone Newton Verdugo DO Primary Care Provider [phone] Encounter Details Date Type Department Care Team (Late Contact Info) Description 08/20/2022 Orders Only [facility] [address] [place] [phone] Newton Verdugo DO [address] [place] [address] Social History Tobacco Use Types Packs/Day Years [...] Office Visit [facility], [facility] Department of [facility] [address] [facility] [address] [place] [address] Nick Bailey MD [address], [facility] 1 [place] [address] 02/24/2026 3:00 PM EDT Ophthalmology Imaging [facility] [address] [place] [address] 02/24/2026 3:10 PM EDT Office Visit [facility] [address] [place] [address] [phone] Newton Thakur MD [address] [place] [address] documented as of this encounter Visit Diagnoses Not on filedocumented in this encounter Care Teams Subsorter Relationship Specialty Start Date End Date Newton Verdugo DO [address] [place] [address] PCP - General Internal Medicine 08/24/21 documented as of this encounter
--- OUTSIDE RECORDS SUMMARY | 2025-08-06 09:01 | XMS_ITS | Encounter Summary ---
Author Organization [employer] Sys [employer] Address [id number] [address] [place] [address] Care Team Providers Care Quarantine Inspector Name Role Phone Newton Verdugo Primary Care Provider [phone] Reason for Visit * Reason Onset Date Comments Med Refill 05/24/2024 Encounter Details Date Type Department Care Team (Late st Contact Info) Description 05/24/2024 Refill [facility] Medicine [address] [place] [address] Sena Gregg CMA Diabetic peripheral neuropathy ([facility]) Social History Tobacco Use Types Packs/Day [...] Office Visit [facility], A Department of [facility] [address] [place] [address] Nick Bailey MD [address] [place] [address] 02/24/2026 3:00 PM EDT Ophthalmology Imaging [facility] [address] [place] [address] 02/24/2026 3:10 PM EDT Office Visit [facility] [address] [place] [address] Newton Thakur MD [address] [place], [place] [phone] documented as of this encounter Visit Diagnoses Diagnosis Diabetic peripheral neuropathy ([facility]) Type II or unspecified type diabetes mellitus with neurological manifestations, not stated as uncontrolled documented in this encounter Additional Health Concerns Assessment Noted Time PHQ-9 Depression Total Score: 0 01/12/20 24 9:53 AM EST documented as of this encounter Care Teams Quarantine Inspector Relationship Specialty Start Date End Date Newton Verdugo DO [address] [place] [address] PCP - General Internal Medicine 08/24/21 documented as of this encounter
--- OUTSIDE RECORDS SUMMARY | 2025-08-06 09:01 | XMS_ITS | Encounter Summary ---
Author Organization [facility] Address [id number] [address] [place] [address] Care Team Providers Care Phonograph Cartridge Assembler Name Role Phone Newton Verdugo DO Primary Care Provider [phone] Encounter Details Date Type Department Care Team (Late st Contact Info) Description 03/22/2023 Orders Only [facility] - Family Medicine [address] [place] [address] Newton Verdugo DO [address] [place] [address] Spondylosis of lumbar region without myelopathy or [...] Office Visit [facility], A Department of [facility] [address] [place] [address] Nick Bailey MD [address] [place], [place] [phone] 02/24/2026 3:00 PM EDT Ophthalmology Imaging [facility] [address] [place] [address] 02/24/2026 3:10 PM EDT Office Visit [facility] [address] [place] [address] Newton Thakur MD [address] [place], [place] [address] [phone] documented as of this encounter Visit Diagnoses Diagnosis 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
--- OUTSIDE RECORDS SUMMARY | 2025-08-06 09:01 | XMS_ITS | Encounter Summary ---
Author Organization [facility] Address [id number] [address] [place] [address] Care Team Providers Care Functional Skills Tutor Name Role Phone Newton Verdugo DO Primary Care Provider [phone] Reason for Visit * Reason Comments Med Refill Encounter Details Date Type Department Care Team (Late st Contact Info) Description 08/20/2022 Refill [facility] - Family Medicine [address] [place] [address] Newton Verdugo DO [address] [place] [address] Diabetic peripheral neuropathy ([facility]) (Primary Dx); Type 1 diabetes mellitus with nephropathy ([facility]) Social History Tobacco Use Types Packs/Day Years [...] [facility], A Department of [facility] [address] [phone] Nick Bailey MD [address], [address] [place] [address] 02/24/2026 3:00 PM EDT Ophthalmology Imaging [facility] [address] [place] [address] [phone] 02/24/2026 3:10 PM EDT Office Visit [facility] [address] [place] [address] Newton Thakur MD [address] [place] [address] documented as of this encounter Visit Diagnoses Diagnosis Diabetic peripheral neuropathy (CMS-HCC)- Primary Type II or unspecified type diabetes mellitus with neurological manifestations, not stated as uncontrolled 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
--- OUTSIDE RECORDS SUMMARY | 2025-08-06 09:01 | XMS_ITS | Encounter Summary ---
Author Organization [facility] Address [address] [place] [address] Care Team Providers Care Drywall Hanger Framer Name Role Phone Unavailable Primary Care Provider Unavailabl e Encounter Details Date Type Department Care Team (Late st Contact Info) Description 09/16/2023 Abstract [facility] [address] [facility] [address] [place] [address] Shelby Black APRN-SUPERANNUATION FUNDS MANAGER [address] [facility] [address] [place] [address] Social History Tobacco Use Types Packs/Day Years Used Date Smoking Tobacco: Never Tobacco Cessation:Counseling Given: Not Answered Alcohol Use Standard Drinks/Week Comments Yes 0 (1 standard drink = 0.6 oz pure alcohol) 3 or 4 drinks on a typical day/ 2 to 4 times a month Comments Unknown Sex and Gender Information Value Date Recorded Sex Assigned at Not on file Legal Sex Female 6:53 PM EDT Gender Identity Not on file Sexual Orientation Not on file documented as of this encounter Plan of Treatment Upcoming Encounters Date Type Department Care Team (Late st Contact Info) Description 10/01/2025 9:50 AM EST Office Visit [facility] [address] [facility] [address] [place] [address] Shelby Black APRN-SUPERANNUATION FUNDS MANAGER [address] [facility] [address] [place] [address] documented as of this encounter Visit Diagnoses Not on filedocumented in this encounter
--- OUTSIDE RECORDS SUMMARY | 2025-08-06 09:01 | XMS_ITS | Encounter Summary ---
Author Organization [facility] [facility] Address [facility] [id number] [address] [place] [address] Care Team Providers Care Research Program Assistant Name Role Phone Newton Verdugo DO Primary Care Provider [phone] Encounter Details Date Type Department Care Team (Late st Contact Info) Description 12/13/2023 Orders Only [facility] - Family Medicine [address] [place] [address] Newton Verdugo DO [address] [place] [address] Social History Tobacco Use Types Packs/Day Years [...] Office Visit [facility], A Department of [facility] [address] [place] [address] Nick Bailey MD [address] [place] [address] 02/24/2026 3:00 PM EDT Ophthalmology Imaging [facility] [address] [place] [address] 02/24/2026 3:10 PM EDT Office Visit [facility] [address] [place] [address] [phone] Newton Thakur MD [address] [place], [place] [address] [phone] documented as of this encounter Visit Diagnoses Not on filedocumented in this encounter Additional Health Concerns Assessment Noted Time PHQ-9 Depression Total Score: 0 08/23/20 23 8:51 AM EDT documented as of this encounter Care Teams Research Program Assistant Relationship Specialty Start Date End Date Newton Verdugo DO [address] [place] [address] PCP - General Internal Medicine 08/24/21 documented as of this encounter
--- OUTSIDE RECORDS SUMMARY | 2025-08-06 09:01 | XMS_ITS | Clinical Summary ---
Author Organization [facility] Address [address] [place] [address] Care Team Providers Care Cylinder Press Operator Apprentice Name Role Phone Unavailable Primary Care Provider Unavailabl e Source Comments The following information is NOT included in Care Everywhere downloads:Psychiatric notes, ECG results, Cardiac Rehab notes, Pulmonary Function notes, data from Smart[employer] (includes but not limited toPregnancy data,audiograms, eye exams, pre-surgical evaluation notes, well-child exam data).[facility] Social History Tobacco Use Types Packs/Day Years Used Date Smoking Tobacco: Never Assessed Comments Unknown Sex and Gender Information Value Date Recorded Sex Assigned at Not on file Legal Sex Female 9:36 AM EST Gender Identity Not on file Sexual Orientation Not on file Plan of Treatment Health Maintenance Due Date Last Done Comments Colonoscopy 1968 HIV Test 1983 Hepatitis C Antibody 1986 Tdap Booster 1986 Hepatitis A (HAV) Vaccine (optional start 19+ years) 1 Hepatitis B (HBV) Vaccine (1 of 3 - 19+ 3-dose series) 1987 Tetanus (Td or Tdap) Booster 1987 Pap Smear 1989 Mammography 2008 CRC Screening 2013 Cholesterol 2013 Cologuard (Stool DNA) 2013 FIT 2013 Pneumococcal Vaccine(s) (50+ yrs) (1 of 1 - PCV) 09/15 Shingles (RZV) Vaccine (1 of 2) 2018 COVID-19 Vaccine (1 - season) 2025 Influenza Vaccine (#1) 2025
--- OUTSIDE RECORDS SUMMARY | 2025-08-06 09:01 | XMS_ITS | Clinical Summary ---
Author Organization [facility] Address [address] [place] [address] Care Team Providers Care Packaging Supervisor Name Role Phone Unavailable Primary Care Provider Unavailabl e Allergies Active Allergy Reactions Criticality Noted Date Comments Brimonidine 02/12/2022 Morphine Nausea And Vomiting Low 12/05/2007 Other Reaction(s): Nausea And Vomiting, Unknown, Vomiting Other reaction(s): Unknown Shellfish Allergy 12/05/2007 Medications atorvastatin (Lipitor) 80 MG tablet Take 80 mg by mouth in the morning. 3 Active Clobetasol Propionate 0.05 % lotion Apply topically 2 (two) times a day. Active dorzolamide-amena olol (Cosopt) 2-0.5 % ophthalmic solution Administer 1 drop into the left eye in the morning and 1 drop before bedtime. 3 Active ergocalciferol (Vitamin D-2) 1.25 MG (89347 UT) capsule Take 50,000 Units by mouth. Active gabapentin (Neurontin) 300 MG capsule Take 300 mg by mouth in the morning. 2 Active hydrocortisone 2.5 % ointment Apply topically 2 (two) times a day as needed for irritation. Active L-METHYLFOLATE CALCIUM PO Metanx (algal oil) 3 mg-35 mg-2 mg-90.314 mg capsule Active latanoprost (Xalatan) 0.005 % ophthalmic solution Administer 1 drop into the left eye at bedtime. 3 Active pregabalin (Lyrica) 100 MG capsule Take 100 mg by mouth in the morning and 100 mg in the evening and 100 mg before bedtime. 3 Active tacrolimus (Protopic) 0.1 % ointment Apply topically 2 (two) times a day. Active insulin lispro (HumaLOG) 100 UNIT/ML patient supplied pump Inject under the skin continuously. Active Krill Oil 300 MG capsule Take by mouth. Acti ve biotin 1 MG capsule Take by mouth. Activ e cetirizine (ZyrTEC) 10 MG tablet Take by mouth. Activ e ketoconazole (NIZOral) 2 % shampooIndicati ons:Other seborrheic dermatitis LATHER ON WET HAIR AND LEAVE ON FOR 5 MINUTES THEN RINSE. USE 2 TO 3 TIMES A WEEK 360 mL 11 4 Active fluocinonide (Lidex) 0.05 % external solutionIndicat ions:Other seborrheic dermatitis APPLY TO SCALP 1 OR 2 TIMES DAILY NEEDED FOR ITCHING. AVOID FACE AND NECK 180 mL 11 4 Active Dupixent 300 MG/2ML injectionIndica tions:Other atopic dermatitis INJECT 300 MG (1 SYRINGE) UNDER THE SKIN EVERY 2 WEEKS 12 mL 3 4 Active Active Problems No known active problems Family History Medical History Relation Name Comments No Known Problems Brother Skin cancer Father non-melanoma sk in cancer No Known Problems Sister 4 sisters, healthy No Known Problems Son Melanoma Neg Hx Relation Name Status Comments Brother Father Alive Mother Alive Sister Son Alive Social History Tobacco Use Types Packs/Day Years [...] Sign Reading Time Taken Comments Blood Pressure 130/70 03/28/2019 12:00 PM EDT Pulse - - Temperature - - Respiratory Rate - - Oxygen Saturation - - Inhaled Oxygen Concentration - - Weight 68.5 kg (151 lb) 03/28/2019 12:00 PM EDT Height 165.1 cm (5' 5 ) 09/30/2022 12:00 PM EDT Body Mass Index 25.13 03/28/2019 12:00 PM EDT Plan of Treatment Upcoming Encounters Date Type Department Care Team (Late st Contact Info) Description 10/01/2025 9:50 AM EST Office Visit [facility] [address] [place] [address] MarieShelby leija, DREDGE PIPE INSTALLER-PEDIATRICIAN [address] [place] [address] Health Maintenance Due Date Last Done Comments CT Colonography 1968 Colonoscopy 1968 FIT 1968 FOBT 1968 Sigmoidoscopy 1968 Pap Smear 1989 Cervical Cancer Screening 1998 HPV/Cotest 1998 Mammogram 2008 Influenza Vaccine (#1) 2025 , 10/04/2019, 10/24/2018, Additional history exists Colorectal Cancer Screening 06/07/2027 FIT-DNA 06/07/2027 06/07/2024, 12/08/2018 Insurance [employer]
--- OUTSIDE RECORDS SUMMARY | 2025-08-06 09:01 | XMS_ITS | Clinical Summary ---
Author Organization [facility] Address [address] [place] [address] Care Team Providers Care Cardroom Worker Name Role Phone Unavailable Primary Care Provider [...] 2018 Shingrix Vaccine (1 of 2) 2018 Influenza Vaccine (#1) 2025 Insurance [facility] [place]
--- OUTSIDE RECORDS SUMMARY | 2025-08-06 09:01 | XMS_ITS | Clinical Summary ---
Author Organization [employer] s tem Address [facility] [id number] [address] [place] [address] Care Team Providers Care Irrigation Pump Installer Name Role Phone Newton Verdugo Primary Care Provider [phone] Allergies Active Allergy Reactions Criticality Noted Date Comments Brimonidine 02/12/2022 Morphine Nausea And Vomiting,Vomiting Low 12/05/2007 Morphine Sulfate 12/23/2021 Other reaction(s): Unknown Shellfish Containing Products 12/05/2007 Medications ergocalciferol (DRISDOL) 1,250 mcg (50,000 unit) capsule Active DUPIXENT SYRINGE 300 mg/2 mL syringe SUBQ injection 01/18/20 22 Active gabapentin (NEURONTIN) 300 mg capsuleIndications :Neuropathy TAKE 1 CAPSULE DAILY 90 capsule 3 11/03/20 22 Active ketoconazole (NIZORAL) 2 % shampoo Apply 1 Application topically once a week. Active HumaLOG U-100 Insulin 100 unit/mL injectionIndicatio ns:Type 1 diabetes mellitus with nephropathy (CMS-HCC) USE 60 UNITS DAILY VIA INSULIN PUMP 90 mL 3 09/30/20 23 Active sytzl-hhvzp-5-dha- epa-lipids (KRILL OIL) 365-15-01-50 mg capsule Take by mouth. Acti ve biotin 1 mg capsule Take by mouth. Activ e cetirizine (ZyrTEC) 10 mg tablet Take by mouth. Activ e pregabalin (LYRICA) 100 mg capsuleIndications :Diabetic peripheral neuropathy (CMS-HCC) TAKE 1 CAPSULE THREE TIMES A DAY 90 capsule 2 05/20/20 24 Active fluocinonide (LIDEX) 0.05 % external solution 11/04/20 24 Active dorzolamide-timolo L (COSOPT) 22.3-6.8 mg/mL ophthalmic solution INSTILL 1 DROP IN THE LEFT EYE EVERY 12 HOURS 10 mL 3 04/03/20 25 Active SantyL ointment APPLY NICKEL THICK LAYER TO LEFT HEEL WOUND DAILY 07/04/20 25 Active atorvastatin (LIPITOR) 80 mg tabletIndications: Mixed hyperlipidemia Take 1 tablet (80 mg total) by mouth in the evening. 90 tablet 1 07/16/20 25 Active clobetasoL (TEMOVATE) 0.05 % cream clobetasol 0.05 % topical cream 025 Discontin ued(Thera py completed ) atorvastatin (LIPITOR) 80 mg tabletIndications: Mixed hyperlipidemia TAKE 1 TABLET IN THE MORNING 90 tablet 1 03/13/20 25 025 Discontin ued(Reord er) Active Problems Problem Noted Date Diagnosed Date Neuropathy 11/03/2022 Stage 3 chronic kidney disease 08/20/2022 Migraine 08/20/2022 Hyperlipidemia 08/20/2022 Glaucoma 08/20/2022 Gastroesophageal reflux disease 08/20/2022 Diabetic retinopathy 08/20/2022 Atopic dermatitis 08/20/2022 Allergic rhinitis 08/20/2022 Chronic hyperkalemia 03/15/2022 Type 1 diabetes 09/28/2013 Encounters Date Type Department Care Team Description 07/16/2025 Refill [facility] [address] [place] [address] Newton Verdugo DO Mixed hyperlipidemia 07/09/2025 3:15 PM EDT Office Visit [facility] [address] [place] [address] Newton Verdugo DO Abnormal wellness exam (Primary Dx); Mixed hyperlipidemia; At risk for coronary artery disease; Encounter for screening mammogram for malignant neoplasm of breast; 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 Never True 07/09/2025 Within the past 12 months th e food we bought just didn't last and we didn't have money to get more. Never True 07/09/2025 Purpose - Life Answer Date Recorded Purpose and direction in life Unknown Comments Unknown Sex and Gender Information Value Date Recorded Sex Assigned at Not on file Legal Sex Female 12:06 PM EDT Gender Identity Not on file Sexual Orientation Not on file Last Filed Vital Signs Vital Sign Reading Time Taken Comments Blood Pressure 120/64 07/09/2025 3:22 PM EDT Pulse 90 07/09/2025 3:22 PM EDT Temperature 36.8 C (98.3 F) 07/09/2025 3:22 PM EDT Respiratory Rate 18 07/09/2025 3:22 PM EDT Oxygen Saturation 98% 07/09/2025 3:22 PM EDT Inhaled Oxygen Concentration - - Weight 70.4 kg (155 lb 3.2 oz) 07/09/2025 3:22 P M EDT Height 165.1 cm (5' 5 ) 07/09/2025 3:22 PM EDT Body Mass Index 25.83 07/09/2025 3:22 PM EDT Plan of Treatment Upcoming Encounters Date Type Department Care Team (Late st Contact Info) Description 09/16/2025 8:00 AM EDT Office Visit [facility] Department of [facility] [address] [place] [address] Nick aBiley MD [address] [place] [address] 02/24/2026 3:00 PM EDT Ophthalmology Imaging [facility] [address] [place] [address]/24/2026 3:10 PM EDT Office Visit [facility] [address] [place] [address] Newton Thakur MD [address] [place] [address] Health Maintenance Due Date Last Done Comments Adult BMI Follow Up Plan 1986 Pap Smear 1989 Mammogram 2008 Diabetic Foot Exam 03/03/2024 03/03/2023 COVID-19 Vaccine (2023-2 5 season) 2024 10/12/2023, 07/14/2022, 11/09/2021, Additional history exists Influenza Vaccine 07/29/2025 11/27/2024, , 10/04/2019, Additional history exists Diabetic Ophthalmology Exam 02/20/2026 02/20/2025 Tobacco Screening 02/20/2026 02/20/2025 Adult BMI Screening 07/09/2026 07/09/2025 Depression Screening 07/09/2026 07/09/2025 Statin Use: Diabetic 07/16/2026 07/16/2025 DTaP,Tdap and Td Vaccines (2 - Td or Tdap) 01/03/2030 01/03/2020 Zoster (Shingles) Vaccine Completed 09/23/2022, Medical Devices Not on file Insurance [employer] Member Subscriber Plan / Payer (Ef fective 2021-Present) Name:Yuridia Ventura Relation to Subscriber:Spouse Name:JOSE DAVID VENTURAOLAGypsy Fragoso Date of :1963 (Home) Address: [address] [place] [address] Payer ID:Not on file Type:Not on file Address: [place] [id number] Care Teams Irrigation Pump Installer Relationship Specialty Start Date End Date Newton Verdugo DO [address] [place] [address] PCP - General Internal Medicine 08/24/21
--- OUTSIDE RECORDS SUMMARY | 2025-08-06 09:01 | XMS_ITS | Encounter Summary ---
Author Organization [facility] [employer] [facility] Address [id number] [address] [place] [address] Care Team Providers Care Auto Glass Installer Name Role Phone Newton Verdugo DO Primary Care Provider [phone] Encounter Details Date Type Department Care Team (Late st Contact Info) Description 09/21/2023 Orders Only [facility] [address] [place] [address] Newton Verdugo DO [address] [place] [address] Social History Tobacco Use Types Packs/Day Years [...] Office Visit [facility], [facility] Department of [facility] [address] [place] [address] Nick Bailey MD [address] [place] [address] 02/24/2026 3:00 PM EDT Ophthalmology Imaging [facility] [address] [place] [address] 02/24/2026 3:10 PM EDT Office Visit [facility] [address] [place] [address] [phone] Newton Thakur MD [address] [place], [place] [phone] documented as of this encounter Visit Diagnoses Not on filedocumented in this encounter Additional Health Concerns Assessment Noted Time PHQ-9 Depression Total Score: 0 08/23/20 23 8:51 AM EDT documented as of this encounter Care Teams Auto Glass Installer Relationship Specialty Start Date End Date Newton Verdugo DO [address] [place] [address] PCP - General Internal Medicine 08/24/21 documented as of this encounter
--- OUTSIDE RECORDS SUMMARY | 2025-08-06 09:01 | XMS_ITS | Encounter Summary ---
Author Organization [facility] [employer] s tem Address [facility] [id number] [address] [place] [address] Care Team Providers Care Service Department Manager Name Role Phone Newton Verdugo DO Primary Care Provider [phone] Encounter Details Date Type Department Care Team (Late st Contact Info) Description 01/12/2024 Orders Only [facility] - Family Medicine [address] [place] [phone] Newton Verdugo DO [address] [place] [address] Social History Tobacco Use Types Packs/Day Years [...] Office Visit [facility], A Department of [facility] [address] [place] [address] Nick Bailey MD [address] [place] [address] 02/24/2026 3:00 PM EDT Ophthalmology Imaging [facility] [address] [place] [address] 02/24/2026 3:10 PM EDT Office Visit [facility] [address] [place] [address] [phone] Newton Thakur MD [address] [place], [place] [phone] documented as of this encounter Visit Diagnoses Not on filedocumented in this encounter Additional Health Concerns Assessment Noted Time PHQ-9 Depression Total Score: 0 01/12/20 24 9:53 AM EST documented as of this encounter Care Teams Service Department Manager Relationship Specialty Start Date End Date Newton Verdugo DO [address] [place] [address] PCP - General Internal Medicine 08/24/21 documented as of this encounter
--- OUTSIDE RECORDS SUMMARY | 2025-08-06 09:01 | XMS_ITS | Encounter Summary ---
Author Organization [facility] Address [facility] [id number] [address] [place] [address] Care Team Providers Care Postage Machine Operator Name Role Phone Newton Verdugo DO Primary Care Provider [phone] Reason for Visit * Reason Comments Med Refill Encounter Details Date Type Department Care Team (Late st Contact Info) Description 02/16/2023 Refill [facility] - Family Medicine [address] [place] [address] Newton Verdugo DO [address] [place] [address] Diabetic peripheral neuropathy ([facility]) Social History Tobacco Use Types Packs/Day Years [...] - 02/16/2023 5:05 PM EDT LM via VM to schedule documented in this encounter Plan of Treatment Upcoming Encounters Date Type Department Care Team (Late st Contact Info) Description 09/16/2025 8:00 AM EDT Office Visit [facility], A Department of [facility] [address] [place] [address] Nick Bailey MD [address] [place] [address] 02/24/2026 3:00 PM EDT Ophthalmology Imaging [facility] [address] [place] [address] 02/24/2026 3:10 PM EDT Office Visit [facility] [address] [place] [address] Newton Thakur MD [address] [place] [address] documented as of this encounter Visit Diagnoses Diagnosis Diabetic peripheral neuropathy ([facility]) Type II or unspecified type diabetes mellitus with neurological manifestations, not stated as uncontrolled documented in this encounter Care Teams Postage Machine Operator Relationship Specialty Start Date End Date Newton Verdugo DO [address] [place] [address] PCP - General Internal Medicine 08/24/21 documented as of this encounter
--- OUTSIDE RECORDS SUMMARY | 2025-08-06 09:01 | XMS_ITS | Encounter Summary ---
Author Organization [facility] Address [address] [place] [address] Care Team Providers Care Hearing Aid Repairer Name Role Phone Unavailable Primary Care Provider Unavailabl e Reason for Visit * Reason Comments Med Refill Encounter Details Date Type Department Care Team (Late st Contact Info) Description 06/06/2023 [facility] [address] [place] [address] Shelby Black, POST ACUTE CARE NURSE PRACTITIONER-HARNESS BRUSHER [address] [place] [address] Seborrheic dermatitis Social History Tobacco Use Types Packs/Day Years Used Date Smoking Tobacco: Never Assessed Comments Unknown Sex and Gender Information Value Date Recorded Sex Assigned at Not on file Legal Sex Female 6:53 PM EDT Gender Identity Not on file Sexual Orientation Not on file documented as of this encounter Miscellaneous Notes * Telephone Encounter - Nely Ying MA - 06/06/2023 2:31 PM EDT Phone call from patient requesting refill of ketoconazole shampoo and fluocinonide solution. [employer] sent. documented in this encounter Plan of Treatment Upcoming Encounters Date Type Department Care Team (Late st Contact Info) Description 10/01/2025 9:50 AM EST Office Visit [facility] [address] [place] [address] Shelby Black, POST ACUTE CARE NURSE PRACTITIONER-HARNESS BRUSHER [address] [place] [address] documented as of this encounter Visit Diagnoses Diagnosis Seborrheic dermatitis Unspecified seborrheic dermatitis documented in this encounter
--- OUTSIDE RECORDS SUMMARY | 2025-08-06 09:01 | XMS_ITS | Encounter Summary ---
Author Organization [facility] Address [id number] [address] [place] [address] Care Team Providers Care Potato Spotter Name Role Phone Newton Verdugo DO Primary Care Provider [phone] Reason for Visit * Reason Comments Med Refill Encounter Details Date Type Department Care Team (Late st Contact Info) Description 09/19/2024 Refill [facility] - Family Medicine [address] [place] [address] Newton Verdugo DO [address] [place] [address] Type 1 diabetes mellitus with nephropathy ([facility]) Social History Tobacco Use Types Packs/Day [...] Office Visit [facility] Department of [facility] [address] [place] [address] Nick Bailey MD [address] [place] [address] 02/24/2026 3:00 PM EDT Ophthalmology Imaging [facility] [address] [place] [address] 02/24/2026 3:10 PM EDT Office Visit [facility] [address] [place] [address] Newton Thakur MD [address] [place] [address] documented as of this encounter Visit Diagnoses Diagnosis Type 1 diabetes mellitus with nephropathy ([facility]) documented in this encounter Additional Health Concerns Assessment Noted Time PHQ-9 Depression Total Score: 0 01/12/20 24 9:53 AM EST documented as of this encounter Care Teams Potato Spotter Relationship Specialty Start Date End Date Newton Verdugo DO [address] [place] [address] PCP - General Internal Medicine 08/24/21 documented as of this encounter
--- OUTSIDE RECORDS SUMMARY | 2025-08-06 09:01 | XMS_ITS | Clinical Summary ---
Author Organization [facility] Address [address] [place] [address] Phone Care Team Providers Care Watch Manufacturing Supervisor Name Role Phone Unavailable Primary Care [...]
--- OUTSIDE RECORDS SUMMARY | 2025-08-06 09:01 | XMS_ITS | Encounter Summary ---
Author Organization [email or web address] [employer] s tem Address [facility] [id number] [address] [place] [address] Care Team Providers Care Machine Bander And Cellophaner Helper Name Role Phone Newton Verdugo DO Primary Care Provider [phone] Encounter Details Date Type Department Care Team (Late Contact Info) Description 03/14/2023 Orders Only [facility] - Family Medicine [address] [place] [address] Newton Verdugo DO [address] [place] [address] Social History Tobacco Use Types Packs/Day Years [...] Office Visit [facility] Department of [facility] [address] [place] [address] Ncik Bailey MD [address] [place] [address] 02/24/2026 3:00 PM EDT Ophthalmology Imaging [facility] [address] [place] [phone] 02/24/2026 3:10 PM EDT Office Visit [facility] [address] [place] [address] Newton Thakur MD [address] [place], [place] [address] documented as of this encounter Visit Diagnoses Not on filedocumented in this encounter Additional Health Concerns Assessment Noted Time PHQ-9 Depression Total Score: 0 03/03/20 23 8:51 AM EDT documented as of this encounter Care Teams Machine Bander And Cellophaner Helper Relationship Specialty Start Date End Date eNwton Verdugo DO [address] [place] [address] PCP - General Internal Medicine 08/24/21 documented as of this encounter
--- OUTSIDE RECORDS SUMMARY | 2025-08-06 09:01 | XMS_ITS | Encounter Summary ---
Author Organization [facility] Address [address] [place] [address] Care Team Providers Care Crna Name Role Phone Unavailable Primary Care Provider Unavailabl e Reason for Visit * Reason Comments Med Refill Encounter Details Date Type Department Care Team (Late st Contact Info) Description 10/12/2024 Refill [facility] [address] [facility] [address] [place] [address] Shelby Black, TONY-BUTTON BREAKER OPERATOR [address] [facility] [address] [place] [address] Other atopic dermatitis Social History Tobacco Use Types Packs/Day [...] encounter Miscellaneous Notes * Telephone Encounter - Yael Valentin LPN - 10/12/2024 4:05 PM EST Pt in office 10/01/2024. Received Dupixent refill request from [facility]. Refills sent at this time. PA expires at the end of calendar year. Will renew closer to date of expiration 11/25/2024. documented in this encounter Plan of Treatment Upcoming Encounters Date Type Department Care Team (Late st Contact Info) Description 10/01/2025 9:50 AM EST Office Visit [facility] [address] [place] [address] Shelby Black, TONY-BUTTON BREAKER OPERATOR [address] [place] [address] documented as of this encounter Visit Diagnoses Diagnosis Other atopic dermatitis documented in this encounter
--- OUTSIDE RECORDS SUMMARY | 2025-08-06 09:01 | XMS_ITS | Encounter Summary ---
Author Organization [facility] [employer] s tem Address [facility] [id number] [address] [place] [address] Care Team Providers Care Timber Poisoner Name Role Phone Newton Verdugo DO Primary Care Provider [phone] Reason for Visit * Reason Comments Med Refill Encounter Details Date Type Department Care Team (Late st Contact Info) Description 10/07/2022 Refill [facility] - Family Medicine [address] [place] [address] Lisa Winter, TONY-SOCIAL STAFF WORKER [address] [place] [place] [address] Social History Tobacco Use Types Packs/Day Years [...] Office Visit [facility] Department of [facility] [address] [place] [address] Nick Bailey MD [address], [facility] [address] [place] [address] 02/24/2026 3:00 PM EDT Ophthalmology Imaging [facility] [address] [place] [address] 02/24/2026 3:10 PM EDT Office Visit [facility] [address] [place] [address] Newton Thakur MD [address] [place] [address] documented as of this encounter Visit Diagnoses Not on filedocumented in this encounter Care Teams Timber Poisoner Relationship Specialty Start Date End Date Newton Verdugo DO [address] [place] [address] PCP - General Internal Medicine 08/24/21 documented as of this encounter
--- OUTSIDE RECORDS SUMMARY | 2025-08-06 09:01 | XMS_ITS | Encounter Summary ---
Author Organization [facility] [employer] Address [id number] [address] [place] [address] Care Team Providers Care Railroad Emergency Services Manager Name Role Phone Newton Verdugo DO Primary Care Provider [phone] Reason for Visit * Reason Comments Med Refill Encounter Details Date Type Department Care Team (Late st Contact Info) Description 11/03/2022 Refill [facility] - Family Medicine [address] [place] [address] Lisa Winter, TONY-COAL MILL OPERATOR [address] [place] [address] Neuropathy (Primary Dx) Social History Tobacco Use [...] [facility], A Department of [facility] [address] [place] [address] Nick Bailey MD [address], [facility] [address] [place], [place] [address] 02/24/2026 3:00 PM EDT Ophthalmology Imaging [facility] [address] [place] [address] 02/24/2026 3:10 PM EDT Office Visit [facility] [address] [place] [address] Newton Thakur MD [address] [place] [address] documented as of this encounter Visit Diagnoses Diagnosis Neuropathy- Primary Mononeuritis of unspecified site documented in this encounter Care Teams Railroad Emergency Services Manager Relationship Specialty Start Date End Date Newton Verdugo DO [facility] [place] [address] PCP - General Internal Medicine 08/24/21 documented as of this encounter
--- OUTSIDE RECORDS SUMMARY | 2025-08-06 09:10 | XMS_ITS | CCD ---
Author Organization [facility] Care Team Providers Care Project Hire Name Role Phone Sherrill Carlin Primary Care Provider Sherrill Carlin Attending Provider DO Sherrill Carlin Primary Care Provider DO Sherrill Carlin Attending Provider MD Buddy Jean Attending Provider Buddy Jean Unavailable DR SHERRILL CARLIN Attending Unavailable RAEGAN, DR MCCARTNEY Admitting Unavailable RAEGAN, DR MCCARTNEY Primary Care Unavailable RAEGAN, DR MCCARTNEY Consulting Unavailable JOSS SOARES Consulting Unavailable IVORY KING Consulting Unavailable DO Shrerill Carlin Primary Care Provider MD Buddy Jean Attending Provider SHERRILL CARLIN Referring Unavailable SHERRILL CARLIN Primary Care Unavailable DO Sherrill Carlin Primary Care Provider TONY Avila Attending Provider DO Sherrill Carlin Primary Care Provider MD Buddy Jean Attending Provider Unavailable Primary Care Provider UnavailGHANSHYAM Sofia Attending Unavailable Sherrill Carlin DO Primary Care Provider [phone] Buddy Jean MD Attending Provider [phone] Sherrill Carlin DO Primary Care Provider [phone] Sherrill Carlin DO Primary Care Provider [phone] Sherrill Carlin DO Primary Care Provider Apolinar Kelly MD Attending Provider Tony Delarosa RD Attending Provider Unavailable Domius Rodger JIMENEZ Attending Provider [phone] Yuhas, Sherrill Primary Care Unavailable Mapus, Tondra K Attending Unavailable Mapus, Tondra K Admitting Unavailable Miranda, Buddy Attending Unavailable Miranda, Buddy Admitting Unavailable Yuhas, Sherrill Primary Care Unavailable BAILEYSHEFALI N Attending Unavailable YUHAS, SHERRILL L Referring Unavailable YUHAS, SHERRILL L Primary Care Unavailable BAILEYJOANNSHEFALI N Referring Unavailable YUHAS, SHERRILL L Primary Care Unavailable YUHAS, SHERRILL L Attending Unavailable YUHAS, SHERRILL L Referring Unavailable YUHAS, SHERRILL L Primary Care Unavailable NICHOLE, SHERRILL C Attending Unavailable YUHAS, SHERRILL L Referring Unavailable [...] 8 Nausea And Vomiting, Vomiting [facility] (20 sources) Shellfish Propensity to adverse reactions 8 [facility] Other (1 source) Morphine Drug Allergy 4 [facility] [place] Repository (1 source) Shellfish Drug allergy (disorder) 4 [facility] (20 sources) brimonidine; Translations: [BRIMONIDINE] Drug Allergy 2 [facility] (20 sources) Morphine; Translations: [MORPHINE SULFATE] Drug Allergy 2 [facility] (2 sources) SHELLFISH CONTAINING PRODUCTS; Translations: [SHELLFISH CONTAINING PRODUCTS] Propensity to adverse reactions to food (disorder) 8 [facility] (20 sources) Shellfish; Translations: [shellfish derived] Allergy to substance 4 dizziness [facility] (3 sources) Shellfish Propensity to adverse reactions 8 [facility] (1 source) Morphine Drug Allergy 5 [facility] Repository Medications Current Medications Medication Drug Class(es) Dates Sig (Normalized) Sig (Original) ascorbic acid 500 mg chewable tablet (19 sources) Vitamin C Start: 04-03-2024 take 1 tablet by mouth once daily as needed atorvastatin 80 mg oral tablet (20 sources) HMG-CoA Reductase Inhibitor Start: 04-03-2024 End: 09-25-2024 take 2 tablets by mouth once daily Atorvastatin 40 mg tablet Discontinued 80 MG PO Daily April 03, 2024 12:00am September 25, 2024 8:56am Start: 04-03-2024 End: 09-25-2024 take 80 mg by mouth once daily Atorvastatin Discontinu ed 80 MG PO Daily April 03, 2024 12:00am September 25, 2024 8:56am Start: 08-23-2023 End: 07-16-2025 take 1 tablet by mouth in the evening atorvastatin (LIPITOR) 80 mg tablet Indications: Mixed hyperlipidemia Take 1 tablet (80 mg total) by mouth in the evening. 90 tablet 1 07/16/2025 Active take 1 tablet by lanre th every twenty-four hours Atorvastatin Calcium 40 MG 1 tablet Orally Once a day Active biotin 10 mg oral tablet (20 sources) Start: 04-03-2024 take 1 tablet by mouth once da mac biotin 1 mg caps ule Take by mouth. Active take 1 tablet by lanre th every twenty-four hours Biotin Maximum Strength 29624 MCG 1 capsule Orally Once a day Active cetirizine hydrochloride 10 mg oral tablet (20 sources) Histamine-1 Receptor Antagonist Start: 04-03-2024 take 1 tablet by mouth once daily cholecalciferol 0.05 mg oral tablet (19 sources) Vitamin D Start: 04-03-2024 take 1 tablet by mouth once daily collagenase 0.25 unt/mg topical ointment (2 sources) Collagen-specific Enzyme Start: 07-04-2025 SantyL ointment APPLY NICKEL THICK LAYER TO LEFT HEEL WOUND DAILY 07/04/2025 Active dorzolamide 20 mg/ml / timolol 5 mg/ml ophthalmic solution (20 sources) Carbonic Anhydrase Inhibitor, beta-Adrenergic Sara Start: 04-03-2025 take 1 drop(s) into the eye(s) every twelve hours dorzolamide-roberta loL (COSOPT) 22.3-6.8 mg/mL ophthalmic solution INSTILL 1 DROP IN THE LEFT EYE EVERY 12 HOURS 10 mL 3 04/03/2025 Active Start: 09-25-2024 take 1 drop(s) into the eye(s) once Dorzolamide-Timolol Active 1 DROPS OPHTHALMIC Once September 25, 2024 12:00am Start: 02-09-2024 End: 04-03-2025 take 1 drop(s) into the eye(s) once Start: 02-15-2023 take 1 drop(s) into the [...] 02/09/2024 Discontinued (Reorder) Dorzolamide-Timolol 22.3-6.8 mg/mL drops (4 sources) Start: 09-25-2024 take 1 drop(s) into the eye(s) once Dorzolamide-Timolol 22.3-6.8 mg/mL drops Active 1 DROPS OPHTHALMIC Once September 25, 2024 12:00am Start: 09-25-2024 take 1 drop(s) into the eye(s) once Dorzolamide-Timolol 22.3-6.8 mg/mL drops Active 1 DROPS OPHTHALMIC Once September 24, 2024 11:00pm ergocalciferol 1.25 mg oral capsule (20 sources) Provitamin D2 Compound ergocalci ferol (DRISDOL) 1,250 mcg (50,000 unit) capsule Active ergocalciferol ( DRISDOL) 1,250 mcg (50,000 unit) capsule Vitamin D2 1,250 mcg (50,000 unit) capsule Active ergocalciferol ( Vitamin D-2) 1.25 MG (29695 UT) capsule Take 50,000 Units by mouth. Active fluocinonide 0.5 mg/ml topical solution (20 sources) Corticosteroid Start: 10-01-2024 fluocinonide ( LIDEX) 0.05 % external solution 10/01/2024 Active Start: 09-25-2024 Start: 09-25-2024 Fluocinonide 0 .05 % solution Active TOPICAL September 25, 2024 12:00am Start: 09-25-2024 Fluocinonide 0 .05 % solution [...] capsule by mouth once daily as needed Start: 11-03-2022 gabapentin (NE URONTIN) 300 mg capsule Indications: Neuropathy TAKE 1 CAPSULE DAILY 90 capsule 3 11/03/2022 Active insulin lispro 100 unt/ml in jectable solution (20 sources) Insulin Analog Start: 11-14-2024 Start: 10-01-2024 End: 11-14-2024 Insulin Lispro (Humalog U-10 0 Insulin) 100 unit/mL solution Discontinued 0 SUBCUT .insulin pump 50 November 14, 2024 1:01pm November 14, 2024 1:02pm 30 units SQ per day via insulin pump Start: 04-03-2024 End: 10-01-2024 Insulin Lispro (Humalog U-10 0 Insulin) 100 unit/mL solution Discontinued 1 sliding scale dose SUBCUT .insulin pump September 25, 2024 8:57am October 01, 2024 9:52am Start: 09-30-2023 HumaLOG U-100 Insulin 100 unit/mL injection Indications: Type 1 diabetes mellitus with nephropathy ([facility]) USE 60 UNITS DAILY VIA INSULIN PUMP 90 mL 3 09/30/2023 Active HumaLOG 100 UNIT /ML Subcutaneous pump with sliding scale Active Insulin Lispro (Humalog U-10 0 Insulin) 100 unit/mL solution (20 sources) Start: 11-14-2024 Insulin Lispro (Humalog U-100 Insulin) 100 unit/mL solution Active 0 SUBCUT .insulin pump November 14, 2024 1:02pm 50 units SQ per day via insulin pump Start: 11-14-2024 Insulin Lispro (Humalog U-100 Insulin) 100 unit/mL solution Active 0 SUBCUT .insulin pump November 14, 2024 12:02pm 50 units SQ per day via insulin pump Start: 11-14-2024 End: 11-14-2024 Insulin Lispro (Humalog U-10 0 Insulin) 100 unit/mL solution Discontinued 0 SUBCUT .insulin pump November 14, 2024 1:01pm November 14, 2024 1:02pm 30 units SQ per day via insulin pump Start: 11-14-2024 End: 11-14-2024 Insulin Lispro (Humalog U-10 0 Insulin) 100 unit/mL solution Discontinued 0 SUBCUT .insulin pump November 14, 2024 12:01pm November 14, 2024 12:02pm 30 units SQ per day via insulin pump Start: 10-01-2024 End: 11-14-2024 Insulin Lispro (Humalog U-10 0 Insulin) 100 unit/mL solution Discontinued 0 SUBCUT .insulin pump October 01, 2024 9:48am November 14, 2024 1:01pm 30 units SQ per day via insulin [...] SUBCUT .insulin pump September 25, 2024 8:57am October 01, 2024 9:52am Start: 09-25-2024 End: 10-01-2024 Insulin Lispro (Humalog [...] mL 11 10/01/2024 Active Start: 09-25-2024 Ketoconazole A ctive TOPICAL September 25, 2024 12:00am Start: 09-25-2024 Start: 08-22-2024 End: 10-01-2024 ketoconazole (NIZOral) 2 % s hampoo Indications: Other seborrheic dermatitis LATHER ON WET HAIR AND LEAVE ON FOR 5 MINUTES THEN RINSE. USE 2 TO 3 TIMES A WEEK 360 mL 3 08/22/2024 10/01/2024 Discontinued krill oil 500 mg oral capsul e (20 sources) Start: 04-03-2024 End: 09-25-2024 take 1 capsule by mouth once daily Start: 04-03-2024 End: 09-25-2024 Krill Oil Discontinued MG PO April 03, 2024 12:00am September 25, 2024 8:57am Krill Oil 300 MG capsule Take by mouth. Active alzzj-xfroo-0-dh m-whw-hluuhg (KRILL OIL) 413-06-38-50 mg capsule Take by mouth. Active auvof-htnek-7-dh f-zdi-wgdqdv (KRILL OIL) 095-82-70-50 mg capsule Take by mouth. 0 Active Krill Oil 350 MG as directed Orally Active Krill Oil 350 MG as directed Orally Not-Taking L-METHYLFOLATE CALCIUM PO (3 sources) L-METHYLFOLATE CALCIUM PO Metanx (algal oil) 3 mg-35 mg-2 mg-90.314 mg capsule Active latanoprost 0.05 mg/ml ophthalmic solution (6 sources) Prostaglandin Analog Start: take 1 drop(s) into the eye(s) at [...] Daily April 03, 2024 12:00am Multivitamin tablet (8 sources) Start: 04-03-2024 take 1 tablet by mouth once daily Multivitamin tablet Active 1 TAB PO Daily April 03, 2024 12:00am Complies with drug therapy Start: 04-03-2024 take 1 tablet by lanre th once daily Start: 04-03-2024 take 1 tablet by lanre th once daily Multivitamin tablet Active 1 TAB PO Daily April 03, 2024 12:00am Start: 04-03-2024 take 1 tablet by lanre th once daily Multivitamin tablet Active 1 TAB PO Daily April 02, 2024 11:00pm pregabalin 100 mg oral capsu le (20 sources) Start: 04-03-2024 End: 06-02-2025 pregabalin (LYRICA) 100 mg capsule Indications: Diabetic peripheral neuropathy (CMS-HCC) TAKE 1 CAPSULE THREE TIMES A DAY 90 capsule 2 05/20/2024 Active Start: 03-05-2024 pregabalin (LY JYOTI) 100 [...] apple cider vinegar 500 mg oral tablet (19 sources) Start: 04-03-2024 End: 06-27-2024 take 1 tablet by mouth three times daily Apple Cider Vinegar 500 mg tablet Discontinued 0 PO .COMPLEX April 03, 2024 12:00am June 27, 2024 10:08am orally tid; Biotin Maximum Strength 24380 MCG (1 source) take 1 capsule by mouth once daily Biotin Maximum Strength 79963 MCG 1 capsule Orally Once a day Not-Taking clobetasol propionate 0.5 mg/ml topical cream (20 sources) Corticosteroid End: 07-09-2025 clobetasoL (TEMOVATE) 0.05 % cream clobetasol 0.05 % topical cream 07/09/2025 Discontinued (Therapy completed) End: 11-19-2024 clobetasoL (TEMOVATE) 0.05 % lotion clobetasol 0.05 % lotion 11/19/2024 Discontinued (Patient Stopped On Own) 2 ml dupilumab 150 mg/ml prefilled syringe (20 sources) Interleukin-4 Receptor alpha Antagonist Start: 07-12-2023 Dupixent 300 MG/2ML injection Indications: Other atopic dermatitis Inject 1 Syringe (300 mg) under the skin every 14 (fourteen) days. 2 each 11 07/12/2023 Active Start: 01-18-2022 End: 09-25-2024 DUPIXENT SYRINGE 300 mg/2 mL syringe SUBQ injection 01/18/2022 Active hydrocortisone 0.025 mg/mg topical ointment (17 sources) Corticosteroid End: 11-19-2024 hydrocortisone (HYTONE) 2.5 % ointment Apply topically 2 (two) times a day as needed. 11/19/2024 Discontinued (Patient Stopped On Own) cohiyjhtc-F9-nxM39-algal oil (FOLTANX RF/MENTAX) 3 mg-35 mg-2 mg -90.314 mg capsule (16 sources) End: 11-19-2024 gughmeblv-T9-lbG10-algal oil (FOLTANX RF/MENTAX) 3 mg-35 mg-2 mg -90.314 mg capsule Metanx (algal oil) 3 mg-35 mg-2 mg-90.314 mg capsule 11/19/2024 Discontinued (Patient Stopped On Own) jjiezkgof-P7-trE 12-algal oil (FOLTANX RF/MENTAX) 3 mg-35 mg-2 mg -90.314 mg capsule Metanx (algal oil) 3 mg-35 mg-2 mg-90.314 mg capsule Active zrybyqmrk-U9-oyD 12-algal oil (FOLTANX RF/MENTAX) 3 mg-35 mg-2 mg -90.314 mg capsule Metanx (algal oil) 3 mg-35 mg-2 mg-90.314 mg capsule 0 Active saccharomyces boulardii 250 mg oral capsule (19 sources) Start: 04-03-2024 End: 06-27-2024 take 1 capsule by mouth twice daily Saccharomyces Boulardii (Daily Probiotic (S. Boulardii)) 250 mg capsule Discontinued 250 MG PO Twice daily April 03, 2024 12:00am June 27, 2024 10:09am Semaglutide (17 sources) Start: 04-30-2024 End: 08-28-2024 Semaglutide 0.25 mg or 0.5 mg (2 mg/3 mL) pen injector Discontinued 0.25 MG SUBCUT every week April 30, 2024 12:00am August 28, 2024 10:27am [facility] Start: 04-30-2024 End: 08-28-2024 Semaglutide 0.25 mg or 0.5 m g (2 mg/3 mL) pen injector Discontinued 0.25 [...] pre-filled syringes) Semaglutide Base 0.3 mg/0.25 mL (8 sources) Start: 05-15-2024 End: 06-27-2024 inject 1 mL by subcutaneous injection every week Semaglutide Base 0.3 mg/0.25 mL Discontinued 0.25 ML SUBCUT every week May 15, 2024 12:00am June 27, 2024 10:08am [facility] Pre-filled Syringes using Semaglutide Base. Dispense 1 mL = (Four 0.25 mL pre-filled syringes) Start: 05-15-2024 End: 06-27-2024 inject 1 mL by subcutaneous injection every week Semaglutide Base 0.3 mg/0.25 mL Discontinued 0.25 ML SUBCUT every week May 14, 2024 11:00pm June 27, 2024 9:08am [facility] Pre-filled Syringes using Semaglutide Base. Dispense 1 mL = (Four 0.25 mL pre-filled syringes) [place] [address] mg powder for oral suspension (20 sources) Start: 04-03-2024 End: 06-27-2024 Sodium Zirconium Cyclosilica te 10 gram powder in packet Discontinued 10 GM PO as needed April 03, 2024 12:00am June 27, 2024 10:10am Start: 10-31-2023 End: 11-19-2024 LOKELMA 5 gram packet Indica tions: Chronic hyperkalemia MIX AND DRINK 1 PACKET TWO TIMES A WEEK 50 packet 3 01/11/2024 Active Lokelma 10 GM 1 packet dissolved in water Orally 2xweek Active Problems Active Problems Problem Classification Problem Date Documented Date Episodic/Chronic Administrative/socia l admission (20 sources) Patient encounter status; Translations: [Dietary counseling and surveillance] 04-30-2024 Episodic Allergic reactions (20 sources) Atopic dermatitis; Translations: [Other atopic dermatitis] Onset: 2 10-01-2024 Chronic Cataract (3 sources) Pseudophakia of left eye; Translations: [Presence of intraocular lens] Onset: 5 02-09-2024 Chronic Chronic kidney disease (20 sources) [...] [Hyperlipidemia, unspecified] Onset: 2 Chronic Esophageal disorders (20 sources) Gastroesophageal reflux disease; Translations: [Gastro-esophageal reflux disease without esophagitis] Onset: 2 08-20-2022 Chronic Essential hypertension (2 sources) Hypertensive disorder; Translations: [Hypertension, unspecified] Chronic Glaucoma (20 sources) Glaucoma; Translations: [Unspecified glaucoma] Onset: 2 08-20-2022 Chronic Headache; including migraine (20 sources) Migraine; Translations: [Migraine, unspecified, not intractable, without status migrainosus] Onset: 2 08-20-2022 Chronic Joint disorders and dislocations; trauma-related (2 sources) Degeneration of cartilage AND/OR meniscus of knee; Translations: [Other meniscus derangements, unspecified medial meniscus, right knee] Onset: 5 07-09-2025 Chronic Osteoarthritis (3 sources) Osteoarthritis of right patellofemoral joint; Translations: [Unilateral primary osteoarthritis, right knee] Onset: 4 11-19-2024 Chronic Other aftercare (20 sources) Long-term current use of insulin; Translations: [senior living (current) use of insulin] 04-30-2024 Episodic Other aftercare (9 sources) senior living (current) use of insulin; Translations: [Long-term (current) use of insulin] 04-30-2024 Episodic Other congenital anomalies (3 sources) Anophthalmos of right eye; Translations: [Other anophthalmos] 02-09-2024 Chronic Other congenital anomalies (1 source) Other anophthalmos; Translations: [Other anophthalmos] Onset: 4 Chronic Other diseases of kidney and ureters (11 sources) Secondary hyperparathyroidism; Translations: [Secondary hyperparathyroidism of [...] Onset: 3 Chronic Other nervous system disorders (13 sources) Peripheral nerve disease ; Translations: [Polyneuropathy, unspecified] 05-28-2024 Chronic Other nervous system disorders (20 sources) Neuropathy; Translations: [Polyneuropathy, unspecified] Onset: 2 11-03-2022 Chronic Other non-traumatic joint disorders (1 source) Pain in right hip; Translations: [PAIN IN RIGHT HIP] Onset: 3 Episodic Other non-traumatic joint disorders (1 source) Pain in right knee; Translations: [PAIN IN RIGHT KNEE] Onset: 3 Episodic Other nutritional; endocrine; and metabolic disorders (15 sources) Overweight in adulthood with body mass index of 25 or more but less than 30; Translations: [Body mass index (BMI) 29.0-29.9, adult] 04-30-2024 Episodic Other nutritional; endocrine; and metabolic disorders (4 sources) Body mass index (BMI) 29.0-29.9, adult; Translations: [Body Mass Index 29.0-29.9, adult] 04-30-2024 Episodic Other nutritional; endocrine; and metabolic disorders (17 sources) Body mass index 25-29 - overweight; Translations: [Overweight] 05-15-2024 Episodic Other nutritional; endocrine; and metabolic disorders (9 sources) Overweight; Translations: [Overweight] 05-15-2024 Episodic Other nutritional; endocrine; and metabolic disorders (3 sources) Body mass index (BMI) 27.0-27.9, adult; Translations: [Body Mass Index 27.0-27.9, adult] 11-14-2024 Episodic Other screening for suspected conditions (not mental disorders or infectious disease) (1 source) Encounter for screening mammogram for malignant neoplasm of breast; Translations: [Encounter for screening mammogram for malignant neoplasm of breast] Onset: 5 Episodic Other skin disorders (2 sources) Epidermoid cyst; Translations: [Epidermal cyst] 10-01-2024 Episodic Other upper respiratory disease (20 sources) Allergic rhinitis; Translations: [Allergic rhinitis, unspecified] Onset: 2 08-20-2022 Chronic Residual codes; unclassified (2 sources) At risk of coronary heart disease ; Translations: [Other specified personal risk factors, not elsewhere classified] 07-09-2025 Episodic Residual codes; unclassified (1 source) Other specified personal risk factors, not elsewhere classified; Translations: [Other specified personal risk factors, not elsewhere classified] Onset: 5 Episodic Unclassified (1 source) Annual Exam Onset: 5 Unclassified (1 source) Eye Exam Onset: 4 Past or Other Problems Problem Classification Problem Date Documented Date Episodic/Chronic Fluid and electrolyte disorders (20 sources) Hyperkalemia; Translations: [Hyperkalemia] Onset: 03-15-2022 Episodic Mood disorders (20 sources) Mood disorders Onset: 01-12-2024 Resolved: 07-09-2025 01-12-2024 Other non-traumatic joint disorders (1 source) Knee pain Onset: 11-19-2024 Episodic Other nutritional; endocrine; and metabolic disorders (2 sources) Hyperuricemia without signs of inflammatory arthritis and tophaceous disease; Translations: [Hyperuricemia without signs of inflammatory arthritis and tophaceous disease] Onset: 09-21-2024 Episodic Spondylosis; intervertebral disc disorders; other back problems (8 sources) Spinal stenosis, lumbar region with neurogenic claudication; Translations: [Spinal stenosis of lumbar region] Onset: 03-17-2023 Episodic Results Test Name Value Interpretation Reference Range Facility HbA1c HPLC (Bld) [Mass fract ion]Ordered By: Rodger Avila on 06-05-2025 HbA1c (Bld) [Mass fraction] 7.2 % [facility] No Panel InformationOrdered By: Rodger Avila on 06-05-2025 Bedside Glucose 162 [facility] Alanine aminotransferase [En zymatic activity/volume] in Serum or PlasmaOrdered By: Rodger Avila on 06-03-2025 ALT [Catalytic activity/Vol] 13 U/L 7-52 [facility] Comment on above: Performed By: #### T SH3 wRFLX, LIPID, URMACRERAT, CMP #### [facility] [address] Albumin [Mass/volume] in Ser um or Plasma by Bromocresol green (BCG) dye binding methoOrdered By: Rodger Avila on 06-03-2025 Albumin BCG dye [Mass/Vol] 3.7 g/dL 3.5-5.7 [facility] Alkaline phosphatase [Enzyma tic activity/volume] in Serum or PlasmaOrdered By: Rodger Avila on 06-03-2025 ALP [Catalytic activity/Vol] 77 U/L 34-104 [facility] Comment on above: Performed By: #### T SH3 wRFLX, LIPID, URMACRERAT, CMP #### [facility] [address] Aspartate aminotransferase [ Enzymatic activity/volume] in Serum or PlasmaOrdered By: Tondra Mapus on 06-03-2025 AST [Catalytic activity/Vol] 21 U/L 13-39 [facility] Comment on above: Performed By: #### T SH3 wRFLX, LIPID, URMACRERAT, CMP #### [facility] [address] Bilirubin.total [Mass/volume ] in Serum or PlasmaOrdered By: Tondra Mapus on 06-03-2025 Bilirubin [Mass/Vol] 0.5 mg/dL 0.3-1.0 [facility] Comment on above: Performed By: #### T SH3 wRFLX, LIPID, URMACRERAT, CMP #### [facility] [address] Calcium [Mass/volume] in Ser um or PlasmaOrdered By: Tondra Mapus on 06-03-2025 Calcium [Mass/Vol] 9.6 mg/dL 8.6-10.3 [facility] Comment on above: Performed By: #### T SH3 wRFLX, LIPID, URMACRERAT, CMP #### [facility] [address] [place] [address] [place] Carbon dioxide, total [Moles /volume] in Serum or PlasmaOrdered By: Tondra Mapus on 06-03-2025 CO2 [Moles/Vol] 31.3 mmol/L High 21.0-31.0 [facility] Comment on above: Performed By: #### T SH3 wRFLX, LIPID, URMACRERAT, CMP #### [facility] [address] [place] [address] [place] Chloride [Moles/volume] in S violetta or PlasmaOrdered By: Tondra Mapus on 06-03-2025 Chloride [Moles/Vol] 107 mmol/L 98-107 [facility] Comment on above: Performed By: #### T SH3 wRFLX, LIPID, URMACRERAT, CMP #### [facility] [address] [place] [address] [place] Cholesterol [Mass/volume] in Serum or PlasmaOrdered By: Rodger Avila on 06-03-2025 Cholesterol [Mass/Vol] 217 mg/dL High 140-200 [facility] Comment on above: Chol less than 200 m g/dl low riskChol 201-239 mg/dl borderline riskChol 240 mg/dl and greater high risk Result Comment: Chol less than 200 mg/dl low risk Chol 201-239 mg/dl borderline risk Chol 240 mg/dl and greater high risk Performed By: #### T SH3 wRFLX, LIPID, URMACRERAT, CMP #### [facility] [address] [place] [address] [place] Cholesterol in HDL [Mass/vol ume] in Serum or PlasmaOrdered By: Rodger Avila on 06-03-2025 Cholesterol in HDL [Mass/Vol] 66 mg/dL 23-92 [facility] Comment on above: HDL CHOL ATP-III CLA SSIFICATION Cardiovascular RiskHDL > or equal to 60 mg/dL LOWHDL < 40 mg/dL HIGH Result Comment: HDL CHOL ATP-III CLASSIFICATION Cardiovascular Risk HDL > or equal to 60 mg/dL LOW HDL < 40 mg/dL HIGH Performed By: #### T SH3 wRFLX, LIPID, URMACRERAT, CMP #### [facility] [address] [place] [id number] [place] Cholesterol in LDL Calc [Mas s/Vol]Ordered By: Rodger Avila on 06-03-2025 Cholesterol in LDL [Mass/Vol] 132 mg/dL High 0-100 [facility] Comment on above: LDL ATP III CLASSIFI CATIONLDL less than 100 mg/dL OptimalLDL 100-129 mg/dL Near or above optimalLDL 130-159 mg/dL Borderline highLDL 160-189 mg/dL HighLDL greater than 189 mg/dL Very high Cholesterol in VLDL Calc [Ma ss/Vol]Ordered By: Rodger Avila on 06-03-2025 Cholesterol in VLDL [Mass/Vol] 18 mg/dL [facility] Comprehensive Metabolic Pane bill 06-03-2025 Albumin [Mass/Vol] 3.7 g/dL Normal 3.5-5.7 [facility] Comment on above: Performed By: #### T SH3 wRFLX, LIPID, URMACRERAT, CMP #### [facility] [address] GFR/1.73 sq M.predicted MDRD (S/P/Bld) [Vol rate/Area] mL/min/{1.73_m2} Normal [facility] Comment on above: Performed By: #### T SH3 wRFLX, LIPID, URMACRERAT, CMP #### [facility] [address] Creatinine [Mass/volume] in Serum or PlasmaOrdered By: Rodger Avila on 06-03-2025 Creatinine [Mass/Vol] 1.07 mg/dL 0.60-1.20 [facility] Comment on above: Performed By: #### T SH3 wRFLX, LIPID, URMACRERAT, CMP #### [facility] [address] Creatinine [Mass/volume] in UrineOrdered By: Rodger Avila on 06-03-2025 Creatinine (U) [Mass/Vol] 181.00 mg/dL [facility] Comment on above: No reference range e stablished Glucose [Mass/volume] in Ser um or PlasmaOrdered By: Rodger Avila on 06-03-2025 Glucose [Mass/Vol] 129 mg/dL High 70-100 [facility] Comment on above: ADA recommended refe rence rangeRandom Glucose Reference Range is dependent on time and content of last meal. Glucose of more than 200 mg/dL in a nonstressed, ambulatory subject supports the diagnosis of Diabetes Mellitus. Result Comment: [place] om Glucose Reference Range is dependent on time and content of last meal. Glucose of more than 200 mg/dL in a nonstressed, ambulatory subject supports the diagnosis of Diabetes Mellitus. ADA recommended reference range Performed By: #### T SH3 wRFLX, LIPID, URMACRERAT, CMP #### [facility] [address] [place] [address] [facility] Lipid Panelon 06-03-2025 LDL Cholesterol,Calculated 132 mg/dL High 0-100 [facility] Comment on above: Result Comment: LDL ATP III CLASSIFICATION LDL less than 100 mg/dL Optimal LDL 100-129 mg/dL Near or above optimal LDL 130-159 mg/dL Borderline high LDL 160-189 mg/dL High LDL greater than 189 mg/dL Very high Performed By: #### T SH3 wRFLX, LIPID, URMACRERAT, CMP #### [facility] [address] [place] [id number] [facility] Triglyceride w/Reflex 93 mg/dL Normal 0-149 [facility] Comment on above: Result Comment: TRIG ATP III CLASSIFICATION TRIG less than 150 mg/dL Normal TRIG 150-199 mg/dL Borderline high TRIG 200-500 mg/dL High TRIG greater than 500 mg/dL Very high Standard traceable to the Center for Disease Conrtrol and Prevention (CDC) test method. Performed By: #### T SH3 wRFLX, LIPID, URMACRERAT, CMP #### [facility] [address] [place] [id number] [facility] VLDL CHOLESTEROL 18 mg/dL Normal [facility] Comment on above: Performed By: #### T SH3 wRFLX, LIPID, URMACRERAT, CMP #### [facility] [address] [place] [id number] [place] MicroAlb Creat Ratio,Uon Creatinine, Urine (Random) 181.00 mg/dL Normal [facility] Comment on above: Result Comment: No r eference range established Performed By: #### T SH3 wRFLX, LIPID, URMACRERAT, CMP #### [facility] [address] [place] [id number] [facility] Microalbumin/Creatinine Ratio 15.5 mg/g Normal 0.0-30.0 [facility] Comment on above: Result Comment: 30-3 00 mg/g indicates an increased risk for diabetic nephropathy. Greater than 300 mg/g is consistent with clinical nephropathy. (Am. J. Kidney Disease 1995, 25:107) PERFORMED BY: [place] [address] PATHOLOGIST ELECTRIC SCREW DRIVER OPERATOR LINDA AZEVEDO M.D. Performed By: #### T SH3 wRFLX, LIPID, URMACRERAT, CMP #### [address] Microalbumin [Mass/volume] i n UrineOrdered By: Tondra Mapus on 06-03-2025 Albumin DL <= 20 mg/L (U) [Mass/Vol] 2.8 mg/dL High 0.0-1.8 [facility] Comment on above: Performed By: #### T SH3 wRFLX, LIPID, URMACRERAT, CMP #### [address] No Panel InformationOrdered By: Tondra Mapus on 06-03-2025 Estimated GFR (CKD-EPI) > 60.0 mL/Min [facility] Creatinine Clearance (Chem N/A [facility] Potassium [Moles/volume] in Serum or PlasmaOrdered By: Tondra Mapus on 06-03-2025 Potassium [Moles/Vol] 5.1 mmol/L 3.5-5.1 [facility] Comment on above: Performed By: #### T SH3 wRFLX, LIPID, URMACRERAT, CMP #### [facility] [address] [place] [address] Protein [Mass/volume] in Ser um or PlasmaOrdered By: Tondra Mapus on 06-03-2025 Protein [Mass/Vol] 6.6 g/dL 6.4-8.9 [facility] Comment on above: Performed By: #### T SH3 wRFLX, LIPID, URMACRERAT, CMP #### [facility] [address] [place] [address] Serum globulin measurement b y calculation (mass/volume)Ordered By: Tondra Mapus on 06-03-2025 Globulin (S) [Mass/Vol] 2.9 g/dL [facility] Comment on above: Performed By: #### T SH3 wRFLX, LIPID, URMACRERAT, CMP #### [facility] [address] [place] [address] Serum or plasma albumin/glob ulin mass ratioOrdered By: Tondra Mapus on 06-03-2025 Albumin/Globulin [Mass ratio] 1.3 {ratio} [facility] Comment on above: Performed By: #### T SH3 wRFLX, LIPID, URMACRERAT, CMP #### [facility] [address] [place] [address] Serum or plasma anion gap de terminationOrdered By: Tondra Mapus on 06-03-2025 Anion gap [Moles/Vol] 9.8 mmol/L 6.0-15.0 [facility] Comment on above: Performed By: #### T SH3 wRFLX, LIPID, URMACRERAT, CMP #### [facility] [address] [place] [address] Serum or plasma total choles terol/high density lipoprotein (HDL) cholesterol mass ratOrdered By: Tondra Mapus on 06-03-2025 Cholesterol.total/Choles terol in HDL [Mass ratio] 3.3 {ratio} <5.0 [facility] Comment on above: Performed By: #### T SH3 wRFLX, LIPID, URMACRERAT, CMP #### [facility] [address] [place] [address] Sodium [Moles/volume] in Ser um or PlasmaOrdered By: Tondra Mapus on 06-03-2025 Sodium [Moles/Vol] 143 mmol/L 136-145 [facility] Comment on above: Performed By: #### T SH3 wRFLX, LIPID, URMACRERAT, CMP #### [facility] [address] [place] [address] Thyroid Stim Hormone w/Rflxo n 06-03-2025 Thyroid Stim Hormone w/Rflx 2.06 u[iU]/mL Normal 0.45-5.33 [facility] Comment on above: Result Comment: PERF ORMED BY: [place] [address] PATHOLOGIST ELECTRIC SCREW DRIVER OPERATOR LINDA AZEVEDO M.D. Performed By: #### T SH3 Juan MX, LIPID, URMACRERAT, CMP #### [facility] [address] Thyrotropin [Units/volume] i n Serum or PlasmaOrdered By: Tondra Mapus on 06-03-2025 TSH Qn 2.06 m[IU]/L 0.45-5.33 [facility] Triglyceride [Mass/volume] i n Serum or PlasmaOrdered By: Tondra Mapus on 06-03-2025 Triglyceride [Mass/Vol] 93 mg/dL 0-149 [facility] Comment on above: TRIG ATP III CLASSIF ICATIONTRIG less than 150 mg/dL NormalTRIG 150-199 mg/dL Borderline highTRIG 200-500 mg/dL High TRIG greater than 500 mg/dL Very highStandard traceable to the Center for Disease Conrtrol and Prevention (CDC) test method. Urea nitrogen [Mass/volume] in Serum or PlasmaOrdered By: Tondra Domius on 06-03-2025 Urea nitrogen [Mass/Vol] 22 mg/dL 06-21 [facility] Comment on above: Performed By: #### T SH3 wRFLX, LIPID, URMACRERAT, CMP #### [address] Urine microalbumin/creatinin e mass ratioOrdered By: Tondra Austin on 06-03-2025 Albumin/Creatinine DL <= 20 mg/L (U) [Mass ratio] 15.5 mg/g 0.0-30.0 [facility] Comment on above: 30-300 mg/g indicate s an increased risk for diabetic nephropathy. Greater than 300 mg/g is consistent with clinical nephropathy. (Am. J. Kidney Disease 1995, 25:107) No Panel Informationon 02-20 OD Quality: RNFL: GCC: Status: prosthesis OS Quality: fair RNFL: moderate diffuse, artifact superiorly GCC: difficult to interpret -ERM Status: stable MANUALLY TRANSCRIBED RESULTS [facility] (Bld) [Mass fract ion]on 02-19-2025 HbA1c (Bld) [Mass fraction] Hemoglobin A1c/Hemoglobin.total in Blood by HPLC [facility] No Panel Informationon 02-19 Bedside Glucose 206 [facility] No Panel Informationon 11-14 Bedside Glucose 150 [facility] Albumin [Mass/volume] in Ser um or Plasma by Bromocresol green (BCG) dye binding methoOrdered By: Buddy Jean on 09-21-2024 Albumin BCG dye [Mass/Vol] 3.8 g/dL 3.5-5.7 [facility] Albumin BCG dye [Mass/Vol] Albumin [Mass/volume] in Serum or Plasma by Bromocresol green (BCG) dye binding metho 3.5-5.7 [facility] Appearance of UrineOrdered B y: Buddy Jean on 09-21-2024 Appearance (U) Urine appearance Clear [facility] Bacteria [Presence] in Urine by AutomatedOrdered By: Buddy Jean on 09-21-2024 Bacteria Auto Ql (U) Rare [HPF] None Seen [facility] Bacteria Auto Ql (U) Bacteria [Presence] in Urine by Automated None Seen [facility] Bilirubin Test strip Ql (U)O rdered By: Buddy Jean on 09-21-2024 Bilirubin Ql (U) Negative Negative [facility] Bilirubin Ql (U) Bilirubin.total [Presence] in Urine by Test strip Negative [facility] Calcium [Mass/volume] in Ser um or PlasmaOrdered By: Buddy Jean on 09-21-2024 Calcium [Mass/Vol] 9.9 mg/dL Normal 8.6-10.3 [facility] Comment on above: Order Comment: Reaso n for Exam Chronic kidney disease, stage III (moderate);Type 1 diabetes Performed By: #### M G, URIC, [id number], ZEINAB, FE and TIBC, RENAL #### [facility] [address] Calcium [Mass/Vol] Calcium [Mass/volume ] in Serum or Plasma 8.6-10.3 [facility] Carbon dioxide, total [Moles /volume] in Serum or PlasmaOrdered By: Buddy Jean on 09-21-2024 CO2 [Moles/Vol] 31.0 mmol/L Normal 21.0-31.0 [facility] Comment on above: Order Comment: Reaso n for Exam Chronic kidney disease, stage III (moderate);Type 1 diabetes Performed By: #### M G, URIC, [id number], ZEINAB, FE and TIBC, RENAL #### [facility] [address] [place] [address] [place] CO2 [Moles/Vol] Carbon dioxide, tota l [Moles/volume] in Serum or Plasma 21.0-31.0 [facility] Chloride [Moles/volume] in S violetta or PlasmaOrdered By: Buddy Miranda on 09-21-2024 Chloride [Moles/Vol] 106 mmol/L Normal 98-107 [facility] Comment on above: Order Comment: Reaso n for Exam Chronic kidney disease, stage III (moderate);Type 1 diabetes Performed By: #### M G, URIC, [id number], ZEINAB, FE and TIBC, RENAL #### [facility] [address] [place] [address] [place] Chloride [Moles/Vol] Chloride [Moles/volume] in Serum or Plasma 98-107 [facility] Color Auto (U)Ordered By: Ab bijal Jean on 09-21-2024 Color (U) Color of Urine by Auto Yellow [facility] Color of Urine by AutoOrdere d By: Buddy Jean on 09-21-2024 Color (U) Yellow Normal Yellow [facility] Comment on above: Order Comment: Reaso n for Exam Chronic kidney disease, stage III (moderate);Type 1 diabetes Name Collection Type:: Clean-Voided Midstream Performed By: #### T SH3 wRFLX, LIPID, URMACRERAT, CMP #### [facility] [address] [place] [address] [place] Creatinine [Mass/volume] in Serum or PlasmaOrdered By: Buddy Miranda on 09-21-2024 Creatinine [Mass/Vol] 1.11 mg/dL Normal 0.60-1.20 [facility] Comment on above: Order Comment: Reaso n for Exam Chronic kidney disease, stage III (moderate);Type 1 diabetes Performed By: #### M G, URIC, [id number], ZEINAB, FE and TIBC, RENAL #### [facility] [address] [place] [id number] [place] Creatinine [Mass/Vol] Creatinine [Mass/volume] in Serum or Plasma 0.60-1.20 [facility] Creatinine [Mass/volume] in UrineOrdered By: Buddy Jean on 09-21-2024 Creatinine (U) [Mass/Vol] 180.00 mg/dL [facility] Comment on above: No reference range e stablished Creatinine (U) [Mass/Vol] Creatinine [Mass/volume] in Urine [facility] Comment on above: No reference range e stablished Dipstick and Microscopicon 1 Bacteria,Urine Rare Normal None Seen [facility] Comment on above: Order Comment: Reaso n for Exam Chronic kidney disease, stage III (moderate);Type 1 diabetes Name Collection Type:: Clean-Voided Midstream Performed By: #### T SH3 wRFLX, LIPID, URMACRERAT, CMP #### [facility] [address] [place] [id number] [place] Bilirubin,Urine Negative Normal Negative [facility] Comment on above: Order Comment: Reaso n for Exam Chronic kidney disease, stage III (moderate);Type 1 diabetes Name Collection Type:: Clean-Voided Midstream Performed By: #### T SH3 wRFLX, LIPID, URMACRERAT, CMP #### [facility] [address] [place] [id number] [place] Glucose Ql (U) Normal Normal Normal [facility] Comment on above: Order Comment: Reaso n for Exam Chronic kidney disease, stage III (moderate);Type 1 diabetes Name Collection Type:: Clean-Voided Midstream Performed By: #### T SH3 wRFLX, LIPID, URMACRERAT, CMP #### [facility] [address] [place] [address] [place] Hyaline Casts,Urine 0-8 Normal 0-8 [facility] Comment on above: Order Comment: Reaso n for Exam Chronic kidney disease, stage III (moderate);Type 1 diabetes Name Collection Type:: Clean-Voided Midstream Performed By: #### T SH3 wRFLX, LIPID, URMACRERAT, CMP #### [facility] [address] [place] [address] [place] Mucus,Urine Rare Normal [facility] Comment on above: Order Comment: Reaso n for Exam Chronic kidney disease, stage III (moderate);Type 1 diabetes Name Collection Type:: Clean-Voided Midstream Result Comment: PERF ORMED BY: [place] [address] PATHOLOGIST ELECTRIC SCREW DRIVER OPERATOR VELASQUEZ CARLOS M.D. Performed By: #### T SH3 wRFLX, LIPID, URMACRERAT, CMP #### [place] [address] [place] Nitrite,Urine Negative Normal Negative [facility] Comment on above: Order Comment: Reaso n for Exam Chronic kidney disease, stage III (moderate);Type 1 diabetes Name Collection Type:: Clean-Voided Midstream Performed By: #### T SH3 wRFLX, LIPID, URMACRERAT, CMP #### [facility] [address] [place] [address] [place] Occult Blood,Urine Negative Normal Negative [facility] Comment on above: Order Comment: Reaso n for Exam Chronic kidney disease, stage III (moderate);Type 1 diabetes Name Collection Type:: Clean-Voided Midstream Performed By: #### T SH3 wRFLX, LIPID, URMACRERAT, CMP #### [facility] [address] [place] [address] [place] Protein,Urine Negative Normal Negative [facility] Comment on above: Order Comment: Reaso n for Exam Chronic kidney disease, stage III (moderate);Type 1 diabetes Name Collection Type:: Clean-Voided Midstream Performed By: #### T SH3 wRFLX, LIPID, URMACRERAT, CMP #### [address] RBC,Urine 1-2 Normal 0-4 [facility] Comment on above: Order Comment: Reaso n for Exam Chronic kidney disease, stage III (moderate);Type 1 diabetes Name Collection Type:: Clean-Voided Midstream Performed By: #### T SH3 wRFLX, LIPID, URMACRERAT, CMP #### [facility] [address] Specificy [place],Urine 1.018 Normal 1.001-1.030 [facility] Comment on above: Order Comment: Reaso n for Exam Chronic kidney disease, stage III (moderate);Type 1 diabetes Name Collection Type:: Clean-Voided Midstream Performed By: #### T SH3 wRFLX, LIPID, URMACRERAT, CMP #### [address] Squamous Epithelial Cell,Urine 5-9 High 0-2 [facility] Comment on above: Order Comment: Reaso n for Exam Chronic kidney disease, stage III (moderate);Type 1 diabetes Name Collection Type:: Clean-Voided Midstream Performed By: #### T SH3 wRFLX, LIPID, URMACRERAT, CMP #### [address] Urobilinogen,Urine Normal Normal Normal [facility] Comment on above: Order Comment: Reaso n for Exam Chronic kidney disease, stage III (moderate);Type 1 diabetes Name Collection Type:: Clean-Voided Midstream Performed By: #### T SH3 wRFLX, LIPID, URMACRERAT, CMP #### [facility] [address] [place] [address] WBC,Urine 5-9 High 0-4 [facility] Comment on above: Order Comment: Reaso n for Exam Chronic kidney disease, stage III (moderate);Type 1 diabetes Name Collection Type:: Clean-Voided Midstream Performed By: #### T SH3 wRFLX, LIPID, URMACRERAT, CMP #### [address] Epithelial cells.squamous [# /area] in Urine sediment by Automated countOrdered By: Buddy Jean on 09-21-2024 Epithelial cells.squamous Auto (Urine sed) [#/Area] 5-9 [HPF] High 0-2 [facility] Epithelial cells.squamous Auto (Urine sed) [#/Area] Epithelial cells.squamous [#/area] in Urine sediment by Automated count High 0-2 [facility] Erythrocyte distribution wid th Auto (RBC) [Ratio]Ordered By: Buddy Miranda on 09-21-2024 Erythrocyte distribution width (RBC) [Ratio] Erythrocyte distribution width [Ratio] by Automated count 11.9-15.3 [facility] Erythrocyte distribution wid th [Ratio] by Automated countOrdered By: Buddy Miranda on 09-21-2024 Erythrocyte distribution width (RBC) [Ratio] 14.0 % Normal 11.9-15.3 [facility] Comment on above: Order Comment: Reaso n for Exam Chronic kidney disease, stage III (moderate);Type 1 diabetes Performed By: #### C BCNO #### [facility] [address] [place] [address] Erythrocytes [#/area] in Uri ne sediment by Automated countOrdered By: Buddy Jean on 09-21-2024 RBC Auto (Urine sed) [#/Area] 1-2 [HPF] 0-4 [facility] RBC Auto (Urine sed) [#/Area] Erythrocytes [#/area] in Urine sediment by Automated count 0-4 [facility] Erythrocytes [#/volume] in B lood by Automated countOrdered By: Buddy Miranda on 09-21-2024 RBC (Bld) [#/Vol] 3.82 10*6/uL Normal 3.60-5.00 [facility] Comment on above: Order Comment: Reaso n for Exam Chronic kidney disease, stage III (moderate);Type 1 diabetes Performed By: #### C BCNO #### [facility] [address] [place] [address] [place] Ferritin [Mass/volume] in Se rum or PlasmaOrdered By: Buddy Griffithsr on 09-21-2024 Ferritin [Mass/Vol] 41.2 ng/mL Normal 11.0-306.8 [facility] Comment on above: Order Comment: Reaso n for Exam Chronic kidney disease, stage III (moderate);Type 1 diabetes Performed By: #### T SH3 wRFLX, LIPID, URMACRERAT, CMP #### [facility] [address] [place] [address] [facility] Ferritin [Mass/Vol] Ferritin [Mass/volume] in Serum or Plasma 11.0-306.8 [facility] Glucose [Mass/volume] in Ser um or PlasmaOrdered By: Buddy Jean on 09-21-2024 Glucose [Mass/Vol] 118 mg/dL High 70-100 [facility] Comment on above: ADA recommended refe rence rangeRandom Glucose Reference Range is dependent on time and content of last meal. Glucose of more than 200 mg/dL in a nonstressed, ambulatory subject supports the diagnosis of Diabetes Mellitus. Order Comment: Reaso n for Exam Chronic kidney disease, stage III (moderate);Type 1 diabetes Result Comment: [place] om Glucose Reference Range is dependent on time and content of last meal. Glucose of more than 200 mg/dL in a nonstressed, ambulatory subject supports the diagnosis of Diabetes Mellitus. ADA recommended reference range Performed By: #### M G, URIC, [id number], ZEINAB, FE and TIBC, RENAL #### [facility] [address] [place] [address] [place] Glucose [Mass/Vol] Glucose [Mass/volume ] in Serum or Plasma [facility] 70-100 [facility] Comment on above: ADA recommended refe rence rangeRandom Glucose Reference Range is dependent on time and content of last meal. Glucose of more than 200 mg/dL in a nonstressed, ambulatory subject supports the diagnosis of Diabetes Mellitus. Glucose [Mass/volume] in Uri ne by Test stripOrdered By: Buddy Jean on 09-21-2024 Glucose Test strip (U) [Mass/Vol] Normal mg/dL Normal [facility] Glucose Test strip (U) [Mass/Vol] Glucose [Mass/volume] in Urine by Test strip Normal [facility] Hematocrit Auto (Bld) [Volum e fraction]Ordered By: Buddy Jean on 09-21-2024 Hematocrit (Bld) [Volume fraction] Hematocrit [Volume Fraction] of Blood by Automated count 34.0-46.4 [facility] Hematocrit [Volume Fraction] of Blood by Automated countOrdered By: Buddy Jean on 09-21-2024 Hematocrit (Bld) [Volume fraction] 37.4 % Normal 34.0-46.4 [facility] Comment on above: Order Comment: Reaso n for Exam Chronic kidney disease, stage III (moderate);Type 1 diabetes Performed By: #### C BCNO #### [address] Hemoglobin Test strip Ql (U) Ordered By: Buddy Jean on 09-21-2024 Hemoglobin Ql (U) Negative Negative [facility] Hemoglobin Ql (U) Hemoglobin [Presence ] in Urine by Test strip Negative [facility] Hemoglobin [Mass/volume] in BloodOrdered By: Buddy Jean on 09-21-2024 Hemoglobin (Bld) [Mass/Vol] 12.5 g/dL Normal 11.8-15.4 [facility] Comment on above: Order Comment: Reaso n for Exam Chronic kidney disease, stage III (moderate);Type 1 diabetes Performed By: #### C BCNO #### [address] Hemoglobin (Bld) [Mass/Vol] Hemoglobin [Mass/volume] in Blood 11.8-15.4 [facility] Hemogram CBC Without Diffon 09-21-2024 Mean Corpuscular HGB Conc 33.4 g/dL Normal 32.0-35.0 [facility] Comment on above: Order Comment: Reaso n for Exam Chronic kidney disease, stage III (moderate);Type 1 diabetes Performed By: #### C BCNO #### [facility] [address] [place] [address] WBC (Bld) [#/Vol] 4.2 10*3/uL Normal 3.8-11.6 [facility] Comment on above: Order Comment: Reaso n for Exam Chronic kidney disease, stage III (moderate);Type 1 diabetes Performed By: #### C BCNO #### [address] Hyaline casts [#/area] in Ur ine sediment by Automated countOrdered By: Buddy Jean on 09-21-2024 Hyaline casts Auto (Urine sed) [#/Area] 0-8 [LPF] 0-8 [facility] Hyaline casts Auto (Urine sed) [#/Area] Hyaline casts [#/area] in Urine sediment by Automated count 0-8 [facility] Iron [Mass/volume] in Serum or PlasmaOrdered By: Buddy Griffithsr on 09-21-2024 Iron [Mass/Vol] 50 ug/dL Normal 50-212 [facility] Comment on above: Order Comment: Reaso n for Exam Chronic kidney disease, stage III (moderate);Type 1 diabetes Performed By: #### T SH3 wRFLX, LIPID, URMACRERAT, CMP #### [facility] [address] [place] [id number] [facility] Iron [Mass/Vol] Iron [Mass/volume] i n Serum or Plasma 50-212 [facility] Iron and TIBC Profileon 08-29 % Iron Saturation 17.4 % Low 20-50 [facility] Comment on above: Order Comment: Reaso n for Exam Chronic kidney disease, stage III (moderate);Type 1 diabetes Performed By: #### T SH3 wRFLX, LIPID, URMACRERAT, CMP #### [facility] [address] [place] [id number] [facility] Total Iron Binding Capacity 287 ug/dL Normal 255-450 [facility] Comment on above: Order Comment: Reaso n for Exam Chronic kidney disease, stage III (moderate);Type 1 diabetes Performed By: #### T SH3 wRFLX, LIPID, URMACRERAT, CMP #### [facility] [address] [place] [id number] [place] Iron binding capacity [Mass/ volume] in Serum or PlasmaOrdered By: Buddy Miranda on 09-21-2024 Iron binding capacity [Mass/Vol] 287 ug/dL 255-450 [facility] Iron saturation [Mass Fracti on] in Serum or PlasmaOrdered By: Buddy Miranda on 09-21-2024 Iron saturation [Mass fraction] 17.4 % Low 20-50 [facility] Ketones Test strip Ql (U)Ord ered By: Buddy Jean on 09-21-2024 Ketones Ql (U) Ketones [Presence] i n Urine by Test strip Negative [facility] Ketones [Presence] in Urine by Test stripOrdered By: Buddy Jean on 09-21-2024 Ketones Ql (U) Negative Normal Negative [facility] [facility] Comment on above: Order Comment: Reaso n for Exam Chronic kidney disease, stage III (moderate);Type 1 diabetes Name Collection Type:: Clean-Voided Midstream Performed By: #### T SH3 wRFLX, LIPID, URMACRERAT, CMP #### [facility] [address] Laboratory - Microbiology an d Antimicrobial susceptibilityOrdered By: Buddy Jean on 09-21-2024 Bacteria identified Cx Nom (U) No Growth 2 Days [facility] Leukocyte esterase [Presence ] in Urine by Test stripOrdered By: Buddy Jean on 09-21-2024 Leukocyte esterase Test strip Ql (U) 3+ High Negative [facility] Comment on above: Order Comment: Reaso n for Exam Chronic kidney disease, stage III (moderate);Type 1 diabetes Name Collection Type:: Clean-Voided Midstream Performed By: #### T SH3 wRFLX, LIPID, URMACRERAT, CMP #### [facility] [address] [place] [address] [place] Leukocyte esterase Test strip Ql (U) Leukocyte esterase [Presence] in Urine by Test strip High Negative [facility] Leukocytes [#/area] in Urine sediment by Automated countOrdered By: Buddy Jean on 09-21-2024 WBC Auto (Urine sed) [#/Area] 5-9 [HPF] High 0-4 [facility] WBC Auto (Urine sed) [#/Area] Leukocytes [#/area] in Urine sediment by Automated count High 0-4 [facility] Leukocytes [#/volume] correc man for nucleated erythrocytes in Blood by Automated counOrdered By: Buddy Jean on 09-21-2024 WBC corrected for nucl RBC Auto (Bld) [#/Vol] 4.2 10*3/uL 3.8-11.6 [facility] WBC corrected for nucl RBC Auto (Bld) [#/Vol] Leukocytes [#/volume] corrected for nucleated erythrocytes in Blood by Automated coun 3.8-11.6 [facility] MCH Auto (RBC) [Entitic mass ]Ordered By: Buddy Jean on 09-21-2024 MCH (RBC) [Entitic mass] MCH [Entitic ma ss] by Automated count 24.7-34.3 [facility] MCH [Entitic mass] by Automa man countOrdered By: Buddy Jean on 09-21-2024 MCH (RBC) [Entitic mass] 32.7 pg Normal 24.7-34.3 [facility] Comment on above: Order Comment: Reaso n for Exam Chronic kidney disease, stage III (moderate);Type 1 diabetes Performed By: #### C BCNO #### [facility] [address] [place] [address] MCHC Auto (RBC) [Mass/Vol]Or dered By: Buddy Jean on 09-21-2024 MCHC (RBC) [Mass/Vol] 33.4 g/dL 32.0-35.0 [facility] MCHC (RBC) [Mass/Vol] MCHC [Mass/volume] by Automated count 32.0-35.0 [facility] MCV Auto (RBC) [Entitic vol] Ordered By: Buddy Jean on 09-21-2024 MCV (RBC) [Entitic vol] MCV [Entitic vol ume] by Automated count 80-100 [facility] MCV [Entitic volume] by Auto mated countOrdered By: Buddy Jean on 09-21-2024 MCV (RBC) [Entitic vol] 97.9 fL Normal 80-100 [facility] Comment on above: Order Comment: Reaso n for Exam Chronic kidney disease, stage III (moderate);Type 1 diabetes Performed By: #### C BCNO #### [facility] [address] [place] [address] Magnesium [Mass/volume] in S violetta or PlasmaOrdered By: Buddy Jean on 09-21-2024 Magnesium [Mass/Vol] 2.0 mg/dL Normal 1.9-2.7 [facility] Comment on above: Order Comment: Reaso n for Exam Chronic kidney disease, stage III (moderate);Type 1 diabetes Performed By: #### M G, URIC, [id number], ZEINAB, FE and TIBC, RENAL #### [facility] [address] Magnesium [Mass/Vol] Magnesium [Mass/volume] in Serum or Plasma 1.9-2.7 [facility] Mucus [Presence] in Urine by AutomatedOrdered By: Buddy Jean on 09-21-2024 Mucus Auto Ql (U) Rare [facility]LPF[facility] Mucus Auto Ql (U) Mucus [Presence] in Urine by Automated [facility] Nitrite Test strip Ql (U)Ord ered By: Buddy Jean on 09-21-2024 Nitrite Ql (U) Negative Negative [facility] Nitrite Ql (U) Nitrite [Presence] i n Urine by Test strip Negative [facility] No Panel InformationOrdered By: Buddy Jean on 09-21-2024 Estimated GFR (CKD-EPI) 58.336 mL/Min [facility] Creatinine Clearance (Chem N/A [facility] Parathyrin.intact [Mass/volu me] in Serum or PlasmaOrdered By: Buddy Jean on 09-21-2024 Parathyrin.intact [Mass/Vol] 33.0 pg/mL [facility] Parathyrin.intact [Mass/Vol] Parathyrin.intact [Mass/volume] in Serum or Plasma [facility] Parathyroid Hormone Intacton 09-21-2024 Parathyroid Hormone Intact 33.0 pg/mL Normal [facility] Comment on above: Order Comment: Reaso n for Exam Chronic kidney disease, stage III (moderate);Type 1 diabetes Result Comment: PERF ORMED BY: [facility] [address] [place] [address] PATHOLOGIST ELECTRIC SCREW DRIVER OPERATOR VELASQUEZ CARLOS M.D. Performed By: #### P TH #### [facility] [address] [place] [address] Phosphate [Mass/volume] in S violetta or PlasmaOrdered By: Buddy Jean on 09-21-2024 Phosphate [Mass/Vol] 4.1 mg/dL Normal 2.5-4.5 [facility] Comment on above: Order Comment: Reaso n for Exam Chronic kidney disease, stage III (moderate);Type 1 diabetes Performed By: #### M G, URIC, [id number], ZEINAB, FE and TIBC, RENAL #### [facility] [address] [place] [address] Phosphate [Mass/Vol] Phosphate [Mass/volume] in Serum or Plasma 2.5-4.5 [facility] Platelet mean volume Auto (B ld) [Entitic vol]Ordered By: Buddy Miranda on 09-21-2024 Platelet mean volume (Bld) [Entitic vol] Platelet mean volume [Entitic volume] in Blood by Automated count 6.3-10.7 [facility] Platelet mean volume [Entiti c volume] in Blood by Automated countOrdered By: Buddy Miranda on 09-21-2024 Platelet mean volume (Bld) [Entitic vol] 10.2 fL Normal 6.3-10.7 [facility] Comment on above: Order Comment: Reaso n for Exam Chronic kidney disease, stage III (moderate);Type 1 diabetes Result Comment: PERF ORMED BY: [place] [address] PATHOLOGIST ELECTRIC SCREW DRIVER OPERATOR VELASQUEZ CARLOS M.D. Performed By: #### C BCNO #### [facility] [address] [place] [address] [place] Platelets Auto (Bld) [#/Vol] Ordered By: Buddy Miranda on 09-21-2024 Platelets (Bld) [#/Vol] Platelets [#/vol ume] in Blood by Automated count 150-450 [facility] Platelets [#/volume] in Bloo d by Automated countOrdered By: Buddy Miranda on 09-21-2024 Platelets (Bld) [#/Vol] 289 10*3/uL Normal 150-450 [facility] Comment on above: Order Comment: Reaso n for Exam Chronic kidney disease, stage III (moderate);Type 1 diabetes Performed By: #### C BCNO #### [facility] [address] Potassium [Moles/volume] in Serum or PlasmaOrdered By: Buddy Jean on 09-21-2024 Potassium [Moles/Vol] 4.9 mmol/L Normal 3.5-5.1 [facility] Comment on above: Order Comment: Reaso n for Exam Chronic kidney disease, stage III (moderate);Type 1 diabetes Performed By: #### M G, URIC, [id number], ZEINAB, FE and TIBC, RENAL #### [address] Potassium [Moles/Vol] Potassium [Moles/volume] in Serum or Plasma 3.5-5.1 [facility] Protein Creat Ratio Ur Rando mon 09-21-2024 Creatinine, Urine (Random) 180.00 mg/dL Normal [facility] Comment on above: Order Comment: Reaso n for Exam Chronic kidney disease, stage III (moderate);Type 1 diabetes Result Comment: No r eference range established Performed By: #### P ROCRERAT #### [address] Urine Protein/Creatinine Ratio 56 mg/g{Cre} Normal 0-200 [facility] Comment on above: Order Comment: Reaso n for Exam Chronic kidney disease, stage III (moderate);Type 1 diabetes Result Comment: PERF ORMED BY: [place] [address] PATHOLOGIST ELECTRIC SCREW DRIVER OPERATOR VELASQUEZ CARLOS M.D. Performed By: #### P ROCRERAT #### [address] Protein Test strip (U) [Mass /Vol]Ordered By: Buddy Jean on 09-21-2024 Protein (U) [Mass/Vol] Negative Negative [facility] Protein (U) [Mass/Vol] Protein [Mass/vol ume] in Urine by Test strip Negative [facility] Protein [Mass/volume] in Uri neOrdered By: Buddy Jean on 09-21-2024 Protein (U) [Mass/Vol] 10 mg/dL High 0-9 [facility] Comment on above: Order Comment: Reaso n for Exam Chronic kidney disease, stage III (moderate);Type 1 diabetes Performed By: #### P ROCRERAT #### [facility] [address] [place] [address] Protein (U) [Mass/Vol] Protein [Mass/vol ume] in Urine High 0-9 [facility] RBC Auto (Bld) [#/Vol]Ordere d By: Buddy Jean on 09-21-2024 RBC (Bld) [#/Vol] Erythrocytes [#/volume] in Blood by Automated count 3.60-5.00 [facility] Renal Function Panelon 09-21 Albumin [Mass/Vol] 3.8 g/dL Normal 3.5-5.7 [facility] Comment on above: Order Comment: Reaso n for Exam Chronic kidney disease, stage III (moderate);Type 1 diabetes Performed By: #### M G, URIC, [id number], ZEINAB, FE and TIBC, RENAL #### [place] [address] [place] GFR/1.73 sq M.predicted MDRD (S/P/Bld) [Vol rate/Area] 58.336 mL/min/{1.73_m2} Normal [facility] Comment on above: Order Comment: Reaso n for Exam Chronic kidney disease, stage III (moderate);Type 1 diabetes Performed By: #### M G, URIC, [id number], ZEINAB, FE and TIBC, RENAL #### [facility] [address] [place] [address] Serum or plasma anion gap de terminationOrdered By: Buddy Jean on 09-21-2024 Anion gap [Moles/Vol] 8.9 mmol/L Normal 6.0-15.0 [facility] Comment on above: Order Comment: Reaso n for Exam Chronic kidney disease, stage III (moderate);Type 1 diabetes Performed By: #### M G, URIC, [id number], ZEINAB, FE and TIBC, RENAL #### [place] [id number] [place] Anion gap [Moles/Vol] Serum or plasma an ion gap determination 6.0-15.0 [facility] Serum or plasma iron binding capacity measurement (mass/volume)Ordered By: Buddy Jean on 09-21-2024 Iron binding capacity [Mass/Vol] Iron binding capacity [Mass/volume] in Serum or Plasma 255-450 [facility] Serum or plasma iron saturat ion measurement (mass fraction)Ordered By: Buddy Jean on 09-21-2024 Iron saturation [Mass fraction] Iron saturation [Mass Fraction] in Serum or Plasma Low 20-50 [facility] Sodium [Moles/volume] in Ser um or PlasmaOrdered By: Buddy Jean on 09-21-2024 Sodium [Moles/Vol] 141 mmol/L Normal 136-145 [facility] Comment on above: Order Comment: Reaso n for Exam Chronic kidney disease, stage III (moderate);Type 1 diabetes Performed By: #### M G, URIC, [id number], ZEINAB, FE and TIBC, RENAL #### [facility] [address] [place] [id number] [place] Sodium [Moles/Vol] Sodium [Moles/volume ] in Serum or Plasma 136-145 [facility] Specific gravity Test strip (U) [Rel density]Ordered By: Buddy Jean on 09-21-2024 Specific gravity (U) [Rel density] 1.018 1.001-1.030 [facility] Specific gravity (U) [Rel density] Specific gravity of Urine by Test strip 1.001-1.030 [facility] Transferrin [Mass/volume] in Serum or PlasmaOrdered By: Buddy Jean on 09-21-2024 Transferrin [Mass/Vol] 205 mg/dL Normal 203-362 [facility] Comment on above: Order Comment: Reaso n for Exam Chronic kidney disease, stage III (moderate);Type 1 diabetes Performed By: #### T SH3 wRFLX, LIPID, URMACRERAT, CMP #### [facility] [address] [place] [address] [place] Transferrin [Mass/Vol] Transferrin [Mass/volume] in Serum or Plasma 203-362 [facility] Urate [Mass/volume] in Serum or PlasmaOrdered By: Buddy Jean on 09-21-2024 Urate [Mass/Vol] 6.0 mg/dL Normal 2.3-6.6 [facility] Comment on above: Order Comment: Reaso n for Exam Chronic kidney disease, stage III (moderate);Type 1 diabetes Performed By: #### M G, URIC, [id number], ZEINAB, FE and TIBC, RENAL #### [facility] [address] Urate [Mass/Vol] Urate [Mass/volume] in Serum or Plasma 2.3-6.6 [facility] Urea nitrogen [Mass/volume] in Serum or PlasmaOrdered By: Buddy Jean on 09-21-2024 Urea nitrogen [Mass/Vol] 27 mg/dL High 06-21 [facility] Comment on above: Order Comment: Reaso n for Exam Chronic kidney disease, stage III (moderate);Type 1 diabetes Performed By: #### M G, URIC, [id number], ZEINAB, FE and TIBC, RENAL #### [facility] [address] Urea nitrogen [Mass/Vol] Urea nitrogen [Mass/volume] in Serum or Plasma High 06-21 [facility] Urine Cultureon 09-21-2024 Bacteria identified Cx Nom (U) No Growth 2 Days PERFORMED BY: [place] [address] PATHOLOGIST ELECTRIC SCREW DRIVER OPERATOR VELASQUEZ CARLOS M.D. Normal [facility] Comment on above: Performed By: #### T SH3 wRFLX, LIPID, URMACRERAT, CMP #### [facility] [address] Urine appearanceOrdered By: Buddy Jean on 09-21-2024 Appearance (U) Clear Normal Clear [facility] Comment on above: Order Comment: Reaso n for Exam Chronic kidney disease, stage III (moderate);Type 1 diabetes Name Collection Type:: Clean-Voided Midstream Performed By: #### T SH3 wRFLX, LIPID, URMACRERAT, CMP #### [facility] [address] Urine cultureOrdered By: Julio Jean on 09-21-2024 Bacteria identified Cx Nom (U) Urine culture [facility] Urine protein/creatinine rat ioOrdered By: Buddy Griffithsr on 09-21-2024 Protein/Creatinine (U) [Ratio] 56 mg/g{Cre} 0-200 [facility] Protein/Creatinine (U) [Ratio] Urine protein/creatinine ratio 0-200 [facility] Urobilinogen Test strip (U) [Mass/Vol]Ordered By: Buddy Miranda on 09-21-2024 Urobilinogen (U) [Mass/Vol] Normal mg/dL Normal [facility] Urobilinogen (U) [Mass/Vol] Urobilinogen [Mass/volume] in Urine by Test strip Normal [facility] Vitamin D 25 Hydroxy Totalon 09-21-2024 Vitamin D 25 Hydroxy Total 58.0 ng/mL Normal 30-100 [facility] Comment on above: Order Comment: Reaso n for Exam Chronic kidney disease, stage III (moderate);Type 1 diabetes Result Comment: TOMAS MIN D STATUS 25([place])VITAMIN D RANGE (ng/mL) Deficient <20 Insufficient 20 to <30 Sufficient 30 to 100 Reference: Lilly MF,Obed NC, Jaimie BAKER, et al. Evaluation,treatment, and prevention of vitamin D deficiency; an Endocrine Society clinical practice guideline. JCEM. 2010; 96(7):1911-30. PERFORMED BY: [place] [address] PATHOLOGIST ELECTRIC SCREW DRIVER OPERATOR VELASQUEZ CARLOS M.D. Performed By: #### T SH3 wRFLX, LIPID, URMACRERAT, CMP #### [facility] [address] [place], [place] [id number] [facility] Vitamin D+Metabolites [Mass/ volume] in Serum or PlasmaOrdered By: Buddy Jean on 09-21-2024 Vitamin D+Metabolites [Mass/Vol] 58.0 ng/mL 30-100 [facility] Comment on above: VITAMIN D STATUS 25( [place])VITAMIN D RANGE (ng/mL) Deficient <20 Insufficient 20 to <30Sufficient 30 to 100Reference: Obed Gil, Jaimie BAKRE, et al. Evaluation,treatment, and prevention of vitamin D deficiency; an Endocrine Society clinical practice guideline. [facility]. 2010; 96(7):1911-30. Vitamin D+Metabolites [Mass/Vol] Vitamin D+Metabolites [Mass/volume] in Serum or Plasma 30-100 [facility] Comment on above: VITAMIN D STATUS 25( [place])VITAMIN D RANGE (ng/mL) Deficient <20 Insufficient 20 to <30Sufficient 30 to 100Reference: Obed Gil, Jaimie BAKER, et al. Evaluation,treatment, and prevention of vitamin D deficiency; an Endocrine Society clinical practice guideline. [facility]. 2010; 96(7):1911-30. pH Test strip (U)Ordered By: Buddy Jean on 09-21-2024 pH (U) pH of Urine by Test strip 5.0-9.0 [facility] pH of Urine by Test stripOrd ered By: Buddy Jean on 09-21-2024 pH (U) 5.5 [pH] Normal 5.0-9.0 [facility] Comment on above: Order Comment: Reaso n for Exam Chronic kidney disease, stage III (moderate);Type 1 diabetes Name Collection Type:: Clean-Voided Midstream Performed By: #### T SH3 wRFLX, LIPID, URMACRERAT, CMP #### [facility] [address] No Panel Informationon 09-10 [facility] Alanine aminotransferase [En zymatic activity/volume] in Serum or PlasmaOrdered By: Rodger Avila on 05-14-2024 ALT [Catalytic activity/Vol] 18 U/L 7-52 [facility] Albumin [Mass/volume] in Ser um or Plasma by Bromocresol green (BCG) dye binding methoOrdered By: Rodger Avila on 05-14-2024 Albumin BCG dye [Mass/Vol] 4.0 g/dL 3.5-5.7 [facility] Alkaline phosphatase [Enzyma tic activity/volume] in Serum or PlasmaOrdered By: Rodger Avila on 05-14-2024 ALP [Catalytic activity/Vol] 79 U/L 34-104 [facility] Aspartate aminotransferase [ Enzymatic activity/volume] in Serum or PlasmaOrdered By: Rodger Avila on 05-14-2024 AST [Catalytic activity/Vol] 23 U/L 13-39 [facility] Bilirubin.total [Mass/volume ] in Serum or PlasmaOrdered By: Rodger Avila on 05-14-2024 Bilirubin [Mass/Vol] 0.4 mg/dL 0.3-1.0 [facility] Calcium [Mass/volume] in Ser um or PlasmaOrdered By: Rodger Avila on 05-14-2024 Calcium [Mass/Vol] 9.9 mg/dL 8.6-10.3 [facility] Carbon dioxide, total [Moles /volume] in Serum or PlasmaOrdered By: Rodger Avila on 05-14-2024 CO2 [Moles/Vol] 30.5 mmol/L 21.0-31.0 [facility] Chloride [Moles/volume] in S violetta or PlasmaOrdered By: Rodger Avila on 05-14-2024 Chloride [Moles/Vol] 106 mmol/L 98-107 [facility] Cholesterol [Mass/volume] in Serum or PlasmaOrdered By: Rodger Avila on 05-14-2024 Cholesterol [Mass/Vol] 157 mg/dL 140-200 [facility] Comment on above: Chol less than 200 m g/dl low riskChol 201-239 mg/dl borderline riskChol 240 mg/dl and greater high risk Cholesterol in LDL Calc [Mas s/Vol]Ordered By: Rodger Avila on 05-14-2024 Cholesterol in LDL [Mass/Vol] 76 mg/dL 0-100 [facility] Comment on above: LDL ATP III CLASSIFI CATIONLDL less than 100 mg/dL OptimalLDL 100-129 mg/dL Near or above optimalLDL 130-159 mg/dL Borderline highLDL 160-189 mg/dL HighLDL greater than 189 mg/dL Very high Cholesterol in VLDL Calc [Ma ss/Vol]Ordered By: Rodger Avila on 05-14-2024 Cholesterol in VLDL [Mass/Vol] 22 mg/dL [facility] Creatinine [Mass/volume] in Serum or PlasmaOrdered By: Rodger Avila on 05-14-2024 Creatinine [Mass/Vol] 1.15 mg/dL 0.60-1.20 [facility] Creatinine [Mass/volume] in UrineOrdered By: Rodger Avila on 05-14-2024 Creatinine (U) [Mass/Vol] 276.00 mg/dL [facility] Comment on above: No reference range e stablished Globulin Calc (S) [Mass/Vol] Ordered By: Rodger Avila on 05-14-2024 Globulin (S) [Mass/Vol] 2.8 g/dL [facility] Glucose [Mass/volume] in Ser um or PlasmaOrdered By: Rodger Avila on 05-14-2024 Glucose [Mass/Vol] 140 mg/dL High 70-100 [facility] Comment on above: ADA recommended refe rence rangeRandom Glucose Reference Range is dependent on time and content of last meal. Glucose of more than 200 mg/dL in a nonstressed, ambulatory subject supports the diagnosis of Diabetes Mellitus. Microalbumin [Mass/volume] i n UrineOrdered By: Rodger Avila on 05-14-2024 Albumin DL <= 20 mg/L (U) [Mass/Vol] 13.6 mg/dL High 0.0-1.8 [facility] No Panel InformationOrdered By: Rodger Avila on 05-14-2024 C-Peptide <0.1 ng/mL Low 1.1-4.4 [facility] Comment on above: C-Peptide reference interval is for fasting patients.Performed at: [facility] [id number] Director: Wenceslao Hoyos PhD, Phone: [phone] Estimated GFR (CKD-EPI) 56.259 mL/Min [facility] Creatinine Clearance (Chem N/A [facility] Potassium [Moles/volume] in Serum or PlasmaOrdered By: Rodger Avila on 05-14-2024 Potassium [Moles/Vol] 5.1 mmol/L 3.5-5.1 [facility] Protein [Mass/volume] in Ser um or PlasmaOrdered By: Rodger Avila on 05-14-2024 Protein [Mass/Vol] 6.8 g/dL 6.4-8.9 [facility] Serum or plasma albumin/glob ulin mass ratioOrdered By: Rodger Avila on 05-14-2024 Albumin/Globulin [Mass ratio] 1.4 {ratio} [facility] Serum or plasma anion gap de terminationOrdered By: Rodger Avila on 05-14-2024 Anion gap [Moles/Vol] 9.6 mmol/L 6.0-15.0 [facility] Serum or plasma high density lipoprotein (HDL) cholesterol measurementOrdered By: Rodger Avila on 05-14-2024 Cholesterol in HDL [Mass/Vol] 59 mg/dL 23-92 [facility] Comment on above: HDL CHOL ATP-III CLA SSIFICATION Cardiovascular RiskHDL > or equal to 60 mg/dL LOWHDL < 40 mg/dL HIGH Serum or plasma total choles terol/high density lipoprotein (HDL) cholesterol mass ratOrdered By: Rodger Avila on 05-14-2024 Cholesterol.total/Choles terol in HDL [Mass ratio] 2.7 {ratio} <5.0 [facility] Sodium [Moles/volume] in Ser um or PlasmaOrdered By: Rodger Avila on 05-14-2024 Sodium [Moles/Vol] 141 mmol/L 136-145 [facility] Thyrotropin [Units/volume] i n Serum or PlasmaOrdered By: Rodger Avila on 05-14-2024 TSH Qn 1.89 m[IU]/L 0.45-5.33 [facility] Triglyceride [Mass/volume] i n Serum or PlasmaOrdered By: Biancaa Austin on 05-14-2024 Triglyceride [Mass/Vol] 110 mg/dL 0-149 [facility] Comment on above: TRIG ATP III CLASSIF ICATIONTRIG less than 150 mg/dL NormalTRIG 150-199 mg/dL Borderline highTRIG 200-500 mg/dL High TRIG greater than 500 mg/dL Very highStandard traceable to the Center for Disease Conrtrol and Prevention (CDC) test method. Urea nitrogen [Mass/volume] in Serum or PlasmaOrdered By: Rodger Avila on 05-14-2024 Urea nitrogen [Mass/Vol] 29 mg/dL High 7-25 [facility] Urine microalbumin/creatinin e mass ratioOrdered By: Rodger Avila on 05-14-2024 Albumin/Creatinine DL <= 20 mg/L (U) [Mass ratio] 49.3 mg/g High 0.0-30.0 [facility] Comment on above: 30-300 mg/g indicate s an increased risk for diabetic nephropathy. Greater than 300 mg/g is consistent with clinical nephropathy. (Am. J. Kidney Disease 1995, 25:107) HbA1c HPLC (Bld) [Mass fract ion]on 04-30-2024 HbA1c (Bld) [Mass fraction] 6.5 % [facility] No Panel Informationon 04-30 Bedside Glucose 211 [facility] No Panel Informationon 02-08 OD Quality: RNFL: GCC: Status: prosthesis - no image OS Quality: fair RNFL: mild inferior, moderate superior GCC: difficult to interpret Status: stable MANUALLY TRANSCRIBED RESULTS [facility] COMPREHENSIVE METABOLIC PANE Bill 01-12-2024 Albumin [Mass/Vol] 3.9 g/dL Normal 3.2-5.3 [facility] Comment on above: Performed By: #### Frances PETE, [id number] #### [facility] ([id number]) [address], [address] [place] [address] ALP [Catalytic activity/Vol] 88 U/L Normal 39-130 [facility] Comment on above: Performed By: #### Frances PETE, [id number] #### [facility] ([id number]) [address], [address] [place] [address] ALT [Catalytic activity/Vol] 18 U/L Normal 0-31 [facility] Comment on above: Performed By: #### Frances PETE, [id number] #### [facility] ([id number]) [address], [address] [place] [address] Anion gap [Moles/Vol] 6 mmol/L Normal 5-15 [facility] Comment on above: Performed By: #### Frances PETE, [id number] #### [facility] ([id number]) [address], [address] [place] [address] AST [Catalytic activity/Vol] 22 U/L Normal 0-41 [facility] Comment on above: Performed By: #### Frances PETE, [id number] #### [facility] ([id number]) [address], [address] [place] [address] Bilirubin [Mass/Vol] 0.5 mg/dL Normal 0.3-1.2 [facility] Comment on above: Performed By: #### Frances PETE, [id number] #### [facility] ([id number]) [address], [address] [place] [address] Calcium [Mass/Vol] 9.6 mg/dL Normal 8.5-10.5 [facility] Comment on above: Performed By: #### Frances PETE, [id number] #### [facility] ([id number]) [address], [address] [place] [address] Chloride [Moles/Vol] 102 mmol/L Normal 98-109 [facility] [place] Comment on above: Performed By: #### Frances PETE, [id number] #### [facility] ([id number]) [address] [place] [address] CO2 [Moles/Vol] 32 mmol/L Normal 22-32 [facility] Comment on above: Performed By: #### Frances PETE, [id number] #### [facility] ([id number]) [address], [address] [place] [address] Creatinine [Mass/Vol] 1.13 mg/dL High 0.40-1.00 [facility] Comment on above: Result Comment: METH OD TRACEABLE TO IDMS STANDARD Performed By: #### Frances PETE, [id number] #### [facility] ([id number]) [address], [address] [place] [address] GFR/1.73 sq M.predicted among non-blacks MDRD (S/P/Bld) [Vol rate/Area] 57 mL/min/{1.73_m2} Low >59 [facility] Comment on above: Result Comment: Reported eGFR is based on the CKD-EPI 2020 equation that does not use a race coefficient. Performed By: #### Frances PETE, 65818-8 #### [facility] ([id number]) [address], [address] [place] [address] Glucose [Mass/Vol] 144 mg/dL High 65-99 [facility] Comment on above: Performed By: #### Frances PETE, [id number] #### [facility] ([id number]) [address] [place] [address] Potassium [Moles/Vol] 4.7 mmol/L Normal 3.5-5.0 [facility] Comment on above: Performed By: #### Frances PETE, [id number] #### [facility] ([id number]) [address], [address] [place] [address] Protein [Mass/Vol] 7.1 g/dL Normal 6.0-8.0 [facility] Comment on above: Performed By: #### Frances PETE, [id number] #### [facility] ([id number]) [address], [address] [place] [address] Sodium [Moles/Vol] 140 mmol/L Normal 134-146 [facility] Comment on above: Performed By: #### Frances PETE, [id number] #### [facility] ([id number]) [address], [address] [place] [address] Urea nitrogen [Mass/Vol] 20 mg/dL Normal 5-23 [facility] Comment on above: Performed By: #### C , [id number] #### [facility] ([id number]) [address], [address] [place] [address] Comprehensive metabolic pane bill 01-12-2024 Albumin [Mass/Vol] 3.9 g/dL 3.2 - 5.3 g/dL [facility] ALP [Catalytic activity/Vol] 88 U/L 39 - 130 U/L [facility] ALT No additional P-5'-P [Catalytic activity/Vol] 18 U/L 0 - 31 U/L [facility] Anion gap [Moles/Vol] 6 mmol/L 5 - 15 mmol/L [facility] AST [Catalytic activity/Vol] 22 U/L 0 - 41 U/L [facility] Bilirubin [Mass/Vol] 0.5 mg/dL 0.3 - 1 .2 mg/dL [facility] Calcium [Mass/Vol] 9.6 mg/dL 8.5 - 10. 5 mg/dL [facility] Chloride [Moles/Vol] 102 mmol/L 98 - 10 9 mmol/L [facility] CO2 [Moles/Vol] 32 mmol/L 22 - 32 mmol/L [facility] Creatinine [Mass/Vol] 1.13 mg/dL High 0.40 - 1.00 mg/dL [facility] Comment on above: METHOD TRACEABLE TO [facility] STANDARD eGFR (CKD-EPI)non-race dependent 57 Low - PINF [facility] Comment on above: Reported eGFR is based on the CKD-EPI 202 equation that does not use a race coefficient. Glucose [Mass/Vol] 144 mg/dL High 65 - 99 mg/dL [facility] Interpretation and review of laboratory results Abnormal [facility] Potassium [Moles/Vol] 4.7 mmol/L 3.5 - 5.0 mmol/L [facility] Protein [Mass/Vol] 7.1 g/dL 6.0 - 8.0 g/dL [facility] Sodium [Moles/Vol] 140 mmol/L 134 - 146 mmol/L [facility] Urea nitrogen [Mass/Vol] 20 mg/dL 5 - 23 mg/d L [facility] HGB A1C (GLYCO-HGB)on 2023 Glucose [Mass/Vol] 180 mg/dL Normal [facility] Comment on above: Performed By: #### Frances PETE, [id number] #### [facility] ([id number]) [address], [address] [place] [address] HbA1c (Bld) [Mass fraction] 7.9 % High 4.4-5.6 [facility] Comment on above: Result Comment: NOTE ADA Guidelines Result HgbA1c Normal : less than 5.7 % Prediabetes : 5.7 % to 6.4 % Diabetes : > 6.4 % Use with caution in patients with abnormal hemoglobin variants as the half-life of red blood cells and in vivo glycation rates are affected. Performed By: #### Frances PETE, 70352-9 #### [facility] ([id number]) [address], [address] [place] [address] Hemoglobin A1con 01-12-2024 Average glucose Estimated from glycated hemoglobin (Bld) [Mass/Vol] 180 mg/dL [facility] HbA1c (Bld) [Mass fraction] 7.9 % High 4.4 - 5.6 % [facility] Comment on above: NOTE ADA Guidelines Result HgbA1c Normal : less than 5.7 % Prediabetes : 5.7 % to 6.4 % Diabetes : > 6.4 % Use with caution in patients with abnormal hemoglobin variants as the half-life of red blood cells and in vivo glycation rates are affected. Interpretation and review of laboratory results Abnormal [facility] - Chemistry and C hemistry - challengeon 01-12-2024 Creatinine (U) [Mass/Vol] 45.94 mg/dL [facility] Cholesterol [Mass/Vol] 186 mg/dL Fi [facility] Cholesterol in HDL [Mass/Vol] 76 mg/dL [facility] Cholesterol in LDL [Mass/Vol] 94 mg/dL [facility] Cholesterol.total/Choles terol in HDL [Mass ratio] 2.4 {ratio} [facility] Triglyceride [Mass/Vol] 80 mg/dL [facility] Albumin [Mass/Vol] 3.9 g/dL [facility] ALP [Catalytic activity/Vol] 88 U/L [facility] ALT [Catalytic activity/Vol] 18 U/L [facility] AST [Catalytic activity/Vol] 22 U/L [facility] Bilirubin [Mass/Vol] 0.5 mg/dL [facility] Calcium [Mass/Vol] 9.6 mg/dL [facility] Chloride [Moles/Vol] 102 mmol/L [facility] CO2 [Moles/Vol] 32 mmol/L [facility] Creatinine [Mass/Vol] 1.13 mg/dL [facility] GFR/1.73 sq M.predicted MDRD (S/P/Bld) [Vol rate/Area] 57 mL/min/{1.73_m2} [facility] Glucose [Mass/Vol] 144 mg/dL [facility] Potassium [Moles/Vol] 4.7 mmol/L [facility] Protein [Mass/Vol] 7.1 g/dL [facility] Sodium [Moles/Vol] 140 mmol/L [facility] Urea nitrogen [Mass/Vol] 20 mg/dL [facility] Laboratory - Hematology and Cell countson 01-12-2024 HbA1c (Bld) [Mass fraction] 7.9 % [facility] Lipid 1996 panelon 4 Cholesterol [Mass/Vol] 186 mg/dL 150 - 200 mg/dL [facility] [employer] Cholesterol in HDL [Mass/Vol] 76 mg/dL 39 - PINF mg/dL [facility] Comment on above: HDL <40 mg/dL - High Risk HDL > or = 40mg/dL- Desirable HDL >60 mg/dL - Negative Risk Cholesterol in LDL [Mass/Vol] 94 mg/dL NINF - 130 mg/dL [facility] Comment on above: LDL <100 mg/dL - Desirable LDL >160 mg/dL - High Risk Cholesterol in VLDL [Mass/Vol] 16 mg/dL 0 - 30 mg/dL [facility] Cholesterol.total/Choles terol in HDL [Mass ratio] 2.4 {ratio} 1.0 - 5.0 [facility] Triglyceride [Mass/Vol] 80 mg/dL 27 - 150 mg/dL [facility] Cholesterol [Mass/Vol] 186 mg/dL Normal 150-200 [facility] Comment on above: Performed By: #### Frances PETE, [id number] #### [facility] ([id number]) [address], [address] [place] [address] Cholesterol in HDL [Mass/Vol] 76 mg/dL Normal >39 [facility] Comment on above: Result Comment: HDL <40 mg/dL - High Risk HDL > or = 40mg/dL- Desirable HDL >60 mg/dL - Negative Risk Performed By: #### Frances PETE, 29473-6 #### [facility] ([id number]) [address], [address] [place] [address] Cholesterol in LDL [Mass/Vol] 94 mg/dL Normal <130 [facility] Comment on above: Result Comment: LDL <100 mg/dL - Desirable LDL >160 mg/dL - High Risk Performed By: #### Frances PETE, 53072-0 #### [facility] ([id number]) [address], [address] [place] [address] Cholesterol in VLDL [Mass/Vol] 16 mg/dL Normal 0-30 [facility] Comment on above: Performed By: #### Frances PETE, 15781-8 #### [facility] ([id number]) [address], [address] [place] [address] CHOLESTEROL:HDL 2.4 Normal 1.0-5.0 [facility] Comment on above: Performed By: #### Frances PETE, [id number] #### [facility] ([id number]) [address], [address] [place] [address] Triglyceride [Mass/Vol] 80 mg/dL Normal 27-150 [facility] Comment on above: Performed By: #### Frances PETE, 55354-1 #### [facility] ([id number]) [address], [address] [place] [address] MICROALBUMIN - ALBUMIN:CREAT ININE URINE RATIOon 01-12-2024 ALB/CREAT RATIO 43.5 mg/g creat High 0.0-30.0 [facility] Comment on above: Performed By: #### M ALBU #### [facility] ([id number]) [address], [address] [place] [address] Albumin DL <= 20 mg/L (U) [Mass/Vol] 2.0 mg/dL High 0.0-1.9 [facility] Comment on above: Performed By: #### M ALBU #### [facility] ([id number]) [address], [address] [place] [address] URINE CREAT 45.94 mg/dL Normal [facility] Comment on above: Performed By: #### M ALBU #### [facility] ([id number]) [address], [address] [place] [address] Microalbumin - Albumin: Crea tinine Urine Ratioon 01-12-2024 Albumin DL <= 20 mg/L (U) [Mass/Vol] 2.0 mg/dL High 0.0 - 1.9 mg/dL [facility] Albumin/Creatinine DL <= 1.0 mg/L (U) [Ratio] 43.5 High [facility] Creatinine (U) [Mass/Vol] 45.94 mg/dL [facility] Interpretation and review of laboratory results Abnormal [facility] [employer] No Panel Informationon 01-12 [facility] Urine Microalbumin mg/dl 2.0 [facility] Urine Microalbumin/Creatinine Ratio 43.5 [facility] VLDL Cholesterol 16 mg/dL [facility] Estimated GFR (Non- 57 mL/min [facility] Albumin [Mass/volume] in Ser um or Plasma by Bromocresol green (BCG) dye binding methoOrdered By: Buddy Jean on 09-22-2023 Albumin BCG dye [Mass/Vol] 3.9 g/dL 3.5-5.7 [facility] Automated erythrocytes count in urine sediment (number/area)Ordered By: Buddy Jean on 09-22-2023 RBC Auto (Urine sed) [#/Area] None seen [HPF] 0-4 [facility] Automated leukocytes count i n urine sediment (number/area)Ordered By: Buddy Jean on 09-22-2023 WBC Auto (Urine sed) [#/Area] None seen [HPF] 0-4 [facility] Bilirubin Auto test strip Ql (U)Ordered By: Buddy Jean on 09-22-2023 Bilirubin Ql (U) Negative Negative [facility] Calcium [Mass/volume] in Ser um or PlasmaOrdered By: Buddy Jean on 09-22-2023 Calcium [Mass/Vol] 9.3 mg/dL 8.6-10.3 [facility] Carbon dioxide, total [Moles /volume] in Serum or PlasmaOrdered By: Buddy Jean on 09-22-2023 CO2 [Moles/Vol] 26.1 mmol/L 21.0-31.0 [facility] Chloride [Moles/volume] in S violetta or PlasmaOrdered By: Buddy Jean on 09-22-2023 Chloride [Moles/Vol] 105 mmol/L 98-107 [facility] Creatinine [Mass/volume] in Serum or PlasmaOrdered By: Buddy Jean on 09-22-2023 Creatinine [Mass/Vol] 1.39 mg/dL 0.60-1.20 [facility] Creatinine [Mass/volume] in UrineOrdered By: Buddy Jean on 09-22-2023 Creatinine (U) [Mass/Vol] 120.0 mg/dL 11.0-20.0 [facility] Erythrocyte distribution wid th Auto (RBC) [Ratio]Ordered By: Buddy Jean on 09-22-2023 Erythrocyte distribution width (RBC) [Ratio] 13.5 % 11.9-15.3 [facility] Ferritin [Mass/volume] in Se rum or PlasmaOrdered By: Buddy Jean on 09-22-2023 Ferritin [Mass/Vol] 28.4 ng/mL 11.0-306.8 [facility] Folate [Mass/volume] in Seru m or PlasmaOrdered By: Buddy Jean on 09-22-2023 Folate [Mass/Vol] 30.0 ng/mL >5.9 [facility] Comment on above: Folate reference ran ge: >5.9 ng/mlThe WHO technical consultation on folate and vitamin [id number] has determined that folate concentrations lessthan 4 ng/ml are considered deficient. Glucose [Mass/volume] in Ser um or PlasmaOrdered By: Buddy Jean on 09-22-2023 Glucose [Mass/Vol] 152 mg/dL 70-100 [facility] Comment on above: ADA recommended refe rence rangeRandom Glucose Reference Range is dependent on time and content of last meal. Glucose of more than 200 mg/dL in a nonstressed, ambulatory subject supports the diagnosis of Diabetes Mellitus. Hematocrit Auto (Bld) [Volum e fraction]Ordered By: Buddy Jean on 09-22-2023 Hematocrit (Bld) [Volume fraction] 35.9 % 34.0-46.4 [facility] Hemoglobin [Mass/volume] in BloodOrdered By: Buddy Jean on 09-22-2023 Hemoglobin (Bld) [Mass/Vol] 12.0 g/dL 11.8-15.4 [facility] Iron [Mass/volume] in Serum or PlasmaOrdered By: Buddy Jean on 09-22-2023 Iron [Mass/Vol] 83 ug/dL 50-212 [facility] Iron binding capacity [Mass/ volume] in Serum or PlasmaOrdered By: Buddy Jean on 09-22-2023 Iron binding capacity [Mass/Vol] 321 ug/dL 255-450 [facility] Iron saturation [Mass Fracti on] in Serum or PlasmaOrdered By: Buddy Jean on 09-22-2023 Iron saturation [Mass fraction] 25.9 % 20-50 [facility] Ketones Auto test strip (U) [Mass/Vol]Ordered By: Buddy Jean on 09-22-2023 Ketones (U) [Mass/Vol] Negative Negative [facility] Laboratory - UrinalysisOrder ed By: Buddy Jean on 09-22-2023 Hyaline casts LM Ql (Urine sed) 0-8 [LPF] 0-8 [facility] Leukocytes [#/volume] correc man for nucleated erythrocytes in Blood by Automated counOrdered By: Buddy Jean on 09-22-2023 WBC corrected for nucl RBC Auto (Bld) [#/Vol] 5.3 10*3/uL 3.8-11.6 [facility] MCH Auto (RBC) [Entitic mass ]Ordered By: Buddy Jean on 09-22-2023 MCH (RBC) [Entitic mass] 32.8 pg 24.7-34.3 [facility] MCHC Auto (RBC) [Mass/Vol]Or dered By: Buddy Jean on 09-22-2023 MCHC (RBC) [Mass/Vol] 33.4 g/dL 32.0-35.0 [facility] MCV Auto (RBC) [Entitic vol] Ordered By: Buddy Jean on 09-22-2023 MCV (RBC) [Entitic vol] 98.3 fL 80-100 [facility] Magnesium [Mass/volume] in S violetta or PlasmaOrdered By: Buddy Jean on 09-22-2023 Magnesium [Mass/Vol] 1.9 mg/dL 1.9-2.7 [facility] No Panel InformationOrdered By: Buddy Jean on 09-22-2023 Estimated GFR (CKD-EPI) 44.814 mL/Min [facility] Creatinine Clearance (Chem N/A [facility] Parathyrin.intact [Mass/volu me] in Serum or PlasmaOrdered By: Buddy Jean on 09-22-2023 Parathyrin.intact [Mass/Vol] 59.6 pg/mL [facility] Phosphate [Mass/volume] in S violetta or PlasmaOrdered By: Buddy Jean on 09-22-2023 Phosphate [Mass/Vol] 4.0 mg/dL 3.7-7.2 [facility] Platelet mean volume Auto (B ld) [Entitic vol]Ordered By: Buddy Jean on 09-22-2023 Platelet mean volume (Bld) [Entitic vol] 9.9 fL 6.3-10.7 [facility] Platelets Auto (Bld) [#/Vol] Ordered By: Buddy Jean on 09-22-2023 Platelets (Bld) [#/Vol] 253 10*3/uL 150-450 [facility] Potassium [Moles/volume] in Serum or PlasmaOrdered By: Buddy Jean on 09-22-2023 Potassium [Moles/Vol] 4.6 mmol/L 3.5-5.1 [facility] Protein Auto test strip (U) [Mass/Vol]Ordered By: Buddy Jean on 09-22-2023 Protein (U) [Mass/Vol] Negative Negative [facility] Protein [Mass/volume] in Uri neOrdered By: Buddy Miranda on 09-22-2023 Protein (U) [Mass/Vol] 9 mg/dL 0-9 [facility] RBC Auto (Bld) [#/Vol]Ordere d By: Buddy Jean on 09-22-2023 RBC (Bld) [#/Vol] 3.65 10*6/uL 3.60-5.00 [facility] Serum or plasma anion gap de terminationOrdered By: Buddy Jean on 09-22-2023 Anion gap [Moles/Vol] 13.5 mmol/L 6.0-15.0 [facility] Sodium [Moles/volume] in Ser um or PlasmaOrdered By: Buddy Jean on 09-22-2023 Sodium [Moles/Vol] 140 mmol/L 136-145 [facility] Squamous epithelial cells de tection in urine sediment by light microscopyOrdered By: Buddy Jean on 09-22-2023 Epithelial cells.squamous LM Ql (Urine sed) 3-4 [HPF] 0-2 [facility] Transferrin [Mass/volume] in Serum or PlasmaOrdered By: Buddy Jean on 09-22-2023 Transferrin [Mass/Vol] 229 mg/dL 203-362 [facility] Urate [Mass/volume] in Serum or PlasmaOrdered By: Buddy Jean on 09-22-2023 Urate [Mass/Vol] 6.8 mg/dL 2.3-6.6 [facility] Urea nitrogen [Mass/volume] in Serum or PlasmaOrdered By: Buddy Jean on 09-22-2023 Urea nitrogen [Mass/Vol] 34 mg/dL 7-25 [facility] Urine appearanceOrdered By: Buddy Jean on 09-22-2023 Appearance (U) Clear Clear [facility] Urine bacteria detection by automated methodOrdered By: Buddy Jean on 09-22-2023 Bacteria Auto Ql (U) None seen None Seen [facility] Urine colorOrdered By: Buddy Jean on 09-22-2023 Color (U) Yellow Yellow [facility] Urine glucose measurement by automated test strip (mass/volume)Ordered By: Buddy Jean on 09-22-2023 Glucose Auto test strip (U) [Mass/Vol] Normal mg/dL Normal [facility] Urine hemoglobin detection b y automated test stripOrdered By: Buddy Jean on 09-22-2023 Hemoglobin Auto test strip Ql (U) Negative Negative [facility] Urine leukocyte esterase det ection by automated test stripOrdered By: Buddy Jean on 09-22-2023 Leukocyte esterase Auto test strip Ql (U) Negative Negative [facility] Urine nitrite detection by a utomated test stripOrdered By: Buddy Jean on 09-22-2023 Nitrite Auto test strip Ql (U) Negative Negative [facility] Urine protein/creatinine rat ioOrdered By: Buddy Jean on 09-22-2023 Protein/Creatinine (U) [Ratio] 75 mg/g{Cre} 0-200 [facility] Urobilinogen Auto test strip (U) [Mass/Vol]Ordered By: Buddy Jean on 09-22-2023 Urobilinogen (U) [Mass/Vol] Normal mg/dL Normal [facility] Vitamin B12 ser/plasOrdered By: Buddy Jean on 09-22-2023 Cobalamin (Vitamin B12) [Mass/Vol] 799 pg/mL 180-914 [facility] Vitamin D+Metabolites [Mass/ volume] in Serum or PlasmaOrdered By: Buddy Jean on 09-22-2023 Vitamin D+Metabolites [Mass/Vol] 46.3 ng/mL 30-100 [facility] Comment on above: VITAMIN D STATUS 25( [place])VITAMIN D RANGE (ng/mL) Deficient <20 Insufficient 20 to <30Sufficient 30 to 100Reference: Lilly MF,Obed ROMANO, Jaimie BAKER, et al. Evaluation,treatment, and prevention of vitamin D deficiency; an Endocrine Society clinical practice guideline. JCEM. 2010; 96(7):1911-30. pH Auto test strip (U)Ordere d By: Buddy Jean on 09-22-2023 pH (U) 1.020 [pH] 1.001-1.030 [facility] pH (U) 5.5 [pH] 5.0-9.0 [facility] XR LSPINE 2_3 VIEWSon 2022 XR LSPINE [...] by: JOSS SOARES Date: 2023-03-17 10:17 Normal [facility] Albumin [Mass/volume] in Ser um or PlasmaOrdered By: Buddy Jean on 09-20-2022 Albumin [Mass/Vol] 3.1 g/dL 3.2-5.5 [facility] Automated erythrocytes count in urine sediment (number/area)Ordered By: Buddy Jean on 09-20-2022 RBC Auto (Urine sed) [#/Area] 0-1 [HPF] 0-4 [facility] Automated leukocytes count i n urine sediment (number/area)Ordered By: Buddy Jean on 09-20-2022 WBC Auto (Urine sed) [#/Area] 1-2 [HPF] 0-4 [facility] Automated urine hyaline cast s count (number/volume)Ordered By: Buddy Jean on 09-20-2022 Hyaline casts Auto (U) [#/Vol] None seen [LPF] 0-1 [facility] Bilirubin Test strip Ql (U)O rdered By: Buddy Jean on 09-20-2022 Bilirubin Ql (U) Negative Negative [facility] Casts typing in urine sedime nt by light microscopyOrdered By: Buddy Jean on 09-20-2022 Casts LM Nom (Urine sed) None seen [LPF] None S een [facility] Color Auto (U)Ordered By: Ab bijal Jean on 09-20-2022 Color (U) Yellow Yellow [facility] Creatinine [Mass/volume] in UrineOrdered By: Buddy Jean on 09-20-2022 Creatinine (U) [Mass/Vol] 177.6 mg/dL [facility] Comment on above: No reference range e stablished Creatinine and Glomerular fi ltration rate.predicted panel (S/P/Bld)Ordered By: Buddy Jean on 09-20-2022 Creatinine [Mass/Vol] 1.09 mg/dL 0.44-1.03 [facility] Erythrocyte distribution wid th Auto (RBC) [Ratio]Ordered By: Buddy Jean on 09-20-2022 Erythrocyte distribution width (RBC) [Ratio] 14.1 % 11.9-15.3 [facility] Estimated glomerular filtrat ion rate (GFR) non- AmericanOrdered By: Buddy Jean on 09-20-2022 GFR/1.73 sq M.predicted among non-blacks MDRD (S/P/Bld) [Vol rate/Area] 52 mL/Min [facility] Hematocrit Auto (Bld) [Volum e fraction]Ordered By: Buddy Jean on 09-20-2022 Hematocrit (Bld) [Volume fraction] 35.0 % 34.0-46.4 [facility] Hemoglobin [Mass/volume] in BloodOrdered By: Buddy Jean on 09-20-2022 Hemoglobin (Bld) [Mass/Vol] 11.6 g/dL 11.8-15.4 [facility] Ketones Auto test strip (U) [Mass/Vol]Ordered By: Buddy Jean on 09-20-2022 Ketones (U) [Mass/Vol] Negative Negative [facility] Laboratory - Chemistry and C hemistry - challengeOrdered By: Buddy Jean on 09-20-2022 Magnesium [Mass/Vol] 2.0 mg/dL 1.6-2.6 [facility] MCH Auto (RBC) [Entitic mass ]Ordered By: Buddy Jean on 09-20-2022 MCH (RBC) [Entitic mass] 32.6 pg 24.7-34.3 [facility] MCHC Auto (RBC) [Mass/Vol]Or dered By: Buddy Jean on 09-20-2022 MCHC (RBC) [Mass/Vol] 33.0 g/dL 32.0-35.0 [facility] MCV Auto (RBC) [Entitic vol] Ordered By: Buddy Jean on 09-20-2022 MCV (RBC) [Entitic vol] 99.0 fL 80-100 [facility] Nitrite Test strip Ql (U)Ord ered By: uBddy Jean on 09-20-2022 Nitrite Ql (U) Negative Negative [facility] No Panel InformationOrdered By: Buddy Jean on 09-20-2022 25-Hydroxy Vitamin D Total 37.6 ng/mL 30-100 [facility] Comment on above: VITAMIN D STATUS 25( [place])VITAMIN D RANGE (ng/mL) Deficient <20 Insufficient 20 to <30Sufficient 30 to 100Reference: Lilly MF,Obed NC, Jaimie BAKER, et al. Evaluation,treatment, and prevention of vitamin D deficiency; an Endocrine Society clinical practice guideline. JCEM. 2010; 96(7):1911-30. Estimated GFR () > 60 mL/Min [facility] Comment on above: GFR estimated refere nce range: According to KDOQI guidelines, <60 ml/min/1.73m2 is sufficient to diagnose a patient with chronic kidney disease. Pharmacy Creatinine Clearance (Chem N/A [facility] Phosphate [Mass/volume] in S violetta or PlasmaOrdered By: Buddy Jean on 09-20-2022 Phosphate [Mass/Vol] 4.3 mg/dL 2.5-4.6 [facility] Platelet mean volume Auto (B ld) [Entitic vol]Ordered By: Buddy Jean on 09-20-2022 Platelet mean volume (Bld) [Entitic vol] 10.2 fL 6.3-10.7 [facility] Platelets Auto (Bld) [#/Vol] Ordered By: Buddy Jean on 09-20-2022 Platelets (Bld) [#/Vol] 259 10*3/uL 150-450 [facility] Protein Auto test strip (U) [Mass/Vol]Ordered By: Buddy Jean on 09-20-2022 Protein (U) [Mass/Vol] Negative Negative [facility] Protein [Mass/volume] in Uri neOrdered By: Buddy Jean on 09-20-2022 Protein (U) [Mass/Vol] 12 mg/dL 0-9 Fi [facility] RBC Auto (Bld) [#/Vol]Ordere d By: Buddy Jean on 09-20-2022 RBC (Bld) [#/Vol] 3.54 10*6/uL 3.60-5.00 [facility] Serum or plasma anion gap de terminationOrdered By: Buddy Jean on 09-20-2022 Anion gap [Moles/Vol] 13.3 mmol/L 6.0-15.0 [facility] Serum or plasma calcium maggie urement (mass/volume)Ordered By: Buddy Jean on 09-20-2022 Calcium [Mass/Vol] 9.2 mg/dL 8.2-10.2 [facility] Serum or plasma chloride britton surement (moles/volume)Ordered By: Buddy Jean on 09-20-2022 Chloride [Moles/Vol] 102 mmol/L 95-114 [facility] Serum or plasma glucose maggie urement (mass/volume)Ordered By: Buddy Jean on 09-20-2022 Glucose [Mass/Vol] 220 mg/dL 70-100 [facility] Comment on above: ADA recommended refe rence rangeRandom Glucose Reference Range is dependent on time and content of last meal. Glucose of more than 200 mg/dL in a nonstressed, ambulatory subject supports the diagnosis of Diabetes Mellitus. Serum or plasma intact parat hyroid hormone measurement (mass/volume)Ordered By: Buddy Jean on 09-20-2022 Parathyrin.intact [Mass/Vol] 66.5 pg/mL 12-88 [facility] Serum or plasma potassium me asurement (moles/volume)Ordered By: Buddy Jean on 09-20-2022 Potassium [Moles/Vol] 5.1 mmol/L 3.5-5.1 [facility] Serum or plasma sodium measu rement (moles/volume)Ordered By: Buddy Jean on 09-20-2022 Sodium [Moles/Vol] 135 mmol/L 136-146 [facility] Serum or plasma total carbon dioxide measurement (moles/volume)Ordered By: Buddy Jean on 09-20-2022 CO2 [Moles/Vol] 24.8 mmol/L 22.0-30.0 [facility] Serum or plasma urea nitroge n measurement (mass/volume)Ordered By: Buddy Jean on 09-20-2022 Urea nitrogen [Mass/Vol] 24 mg/dL 9-23 [facility] Serum or plasma uric acid me asurement (mass/volume)Ordered By: Buddy Jean on 09-20-2022 Urate [Mass/Vol] 5.7 mg/dL 2.6-7.2 [facility] Specific gravity Auto test s trip (U) [Rel density]Ordered By: Buddy Jean on 09-20-2022 Specific gravity (U) [Rel density] 1.021 1.001-1.030 [facility] Squamous epithelial cells de tection in urine sediment by light microscopyOrdered By: Buddy Jean on 09-20-2022 Epithelial cells.squamous LM Ql (Urine sed) 5-9 [HPF] 0-2 [facility] Urine bacteria detection by automated methodOrdered By: Buddy Jean on 09-20-2022 Bacteria Auto Ql (U) None seen None Seen [facility] Urine clarity by refractomet ry automatedOrdered By: Buddy Jean on 09-20-2022 Clarity Refractometry automated (U) Clear Clear [facility] Urine glucose measurement by automated test strip (mass/volume)Ordered By: Buddy Jean on 09-20-2022 Glucose Auto test strip (U) [Mass/Vol] Normal mg/dL Normal [facility] Urine hemoglobin detection b y automated test stripOrdered By: Buddy Jean on 09-20-2022 Hemoglobin Auto test strip Ql (U) Negative Negative [facility] Urine leukocyte esterase det ection by automated test stripOrdered By: Buddy Jean on 09-20-2022 Leukocyte esterase Auto test strip Ql (U) Negative Negative [facility] Urine protein/creatinine rat ioOrdered By: Buddy Jean on 09-20-2022 Protein/Creatinine (U) [Ratio] 68 mg/g{Cre} 0-200 [facility] Urobilinogen Auto test strip (U) [Mass/Vol]Ordered By: Buddy Jean on 09-20-2022 Urobilinogen (U) [Mass/Vol] Normal mg/dL Normal [facility] WBC Auto (Bld) [#/Vol]Ordere d By: Buddy Jean on 09-20-2022 WBC (Bld) [#/Vol] 5.4 10*3/uL 3.8-11.6 [facility] pH Auto test strip (U)Ordere d By: Buddy Jean on 09-20-2022 pH (U) 5.5 [pH] 5.0-9.0 [facility] Basophils Auto (Bld) [#/Vol] Ordered By: Sherrill Carlin on 07-12-2022 Basophils (Bld) [#/Vol] 0.1 10*3/uL 0.0-0.2 [facility] Basophils/100 WBC Auto (Bld) Ordered By: Sherrill Carlin on 07-12-2022 Basophils/100 WBC (Bld) 1.2 % . [facility] Blood hemoglobin measurement (mass/volume)Ordered By: Sherrill Carlin on 07-12-2022 Hemoglobin (Bld) [Mass/Vol] 12.1 g/dL 11.8-15.4 [facility] Blood leukocytes automated c ount (number/volume)Ordered By: Sherrill Carlin on 07-12-2022 WBC (Bld) [#/Vol] 5.2 10*3/uL 4.5-11.0 [facility] Body fluid albumin measureme nt (mass/volume)Ordered By: Sherrill Carlin on 07-12-2022 Albumin (Body fld) [Mass/Vol] 3.3 g/dL 3.2-5.5 [facility] Cholesterol [Mass/volume] in Serum or PlasmaOrdered By: Sherrill Carlin on 07-12-2022 Cholesterol [Mass/Vol] 166 mg/dL 140-200 [facility] Comment on above: Chol less than 200 m g/dl low risk Chol 201-239 mg/dl borderline risk Chol 240 mg/dl and greater high risk Chol less than 200 m g/dl low riskChol 201-239 mg/dl borderline riskChol 240 mg/dl and greater high risk Cholesterol in LDL Calc [Mas s/Vol]Ordered By: Sherrill Carlin on 07-12-2022 Cholesterol in LDL [Mass/Vol] 81 mg/dL 0-100 [facility] Comment on above: LDL ATP III CLASSIFI [...] 07-12-2022 Cholesterol in VLDL [Mass/Vol] 13 mg/dL [facility] Creatinine [Mass/volume] in UrineOrdered By: Sherrill Carlin on 07-12-2022 Creatinine (U) [Mass/Vol] 262.2 mg/dL [facility] Comment on above: No reference range e stablished Creatinine and Glomerular fi ltration rate.predicted panel (S/P/Bld)Ordered By: Sherrill Carlin on 07-12-2022 Creatinine [Mass/Vol] 1.40 mg/dL 0.44-1.03 [facility] Eosinophils Auto (Bld) [#/Vo l]Ordered By: Sherrill Carlin on 07-12-2022 Eosinophils (Bld) [#/Vol] 0.5 10*3/uL 0.0-0.45 [facility] Eosinophils/100 WBC Auto (Bl d)Ordered By: Sherrill Carlin on 07-12-2022 Eosinophils/100 WBC (Bld) 9.6 % . [facility] Erythrocyte distribution wid th Auto (RBC) [Ratio]Ordered By: Sherrill Carlin on 07-12-2022 Erythrocyte distribution width (RBC) [Ratio] 13.7 % 11.9-15.3 [facility] Estimated glomerular filtrat ion rate (GFR) non- AmericanOrdered By: Sherrill Carlin on 07-12-2022 GFR/1.73 sq M.predicted among non-blacks MDRD (S/P/Bld) [Vol rate/Area] 39 mL/Min [facility] Globulin Calc (S) [Mass/Vol] Ordered By: Sherrill Carlin on 07-12-2022 Globulin (S) [Mass/Vol] 3.3 g/dL [facility] Glucose mean value [Mass/vol ume] in Blood Estimated from glycated hemoglobinOrdered By: Sherrill Carlin on 07-12-2022 Average glucose Estimated from glycated hemoglobin (Bld) [Mass/Vol] 171 mg/dL [facility] Hematocrit Auto (Bld) [Volum e fraction]Ordered By: Sherrill Carlin on 07-12-2022 Hematocrit (Bld) [Volume fraction] 36.3 % 34.0-46.4 [facility] Hemoglobin A1c percentageOrd ered By: Sherrill Carlin on 07-12-2022 HbA1c (Bld) [Mass fraction] 7.6 % 4.3-5.6 [facility] Comment on above: Increased risk for d iabetes: 5.7 - 6.4 diabetes: >6.4 glycemic control for adults with diabetes: <7.0 Increased risk for d iabetes: 5.7 - 6.4diabetes: >6.4glycemic control for adults with diabetes: <7.0 Laboratory - Hematology and Cell countsOrdered By: Sherrill Carlin on 07-12-2022 Nucleated RBC/100 WBC (Bld) [Ratio] 0.1 % 0-0.5 [facility] Lymphocytes Auto (Bld) [#/Vo l]Ordered By: Sherrill Carlin on 07-12-2022 Lymphocytes (Bld) [#/Vol] 1.0 10*3/uL 1.00-4.8 [facility] Lymphocytes/100 WBC Auto (Bl d)Ordered By: Sherrill Carlin on 07-12-2022 Lymphocytes/100 WBC (Bld) 18.5 % . [facility] MCH Auto (RBC) [Entitic mass ]Ordered By: Sherrill Carlin on 07-12-2022 MCH (RBC) [Entitic mass] 33.2 pg 24.7-34.3 [facility] MCHC Auto (RBC) [Mass/Vol]Or dered By: Sherrill Carlin on 07-12-2022 MCHC (RBC) [Mass/Vol] 33.2 g/dL 32.0-35.0 [facility] MCV Auto (RBC) [Entitic vol] Ordered By: Sherrill Carlin on 07-12-2022 MCV (RBC) [Entitic vol] 100.0 fL 80-100 [facility] Monocytes Auto (Bld) [#/Vol] Ordered By: Sherrill Carlin on 07-12-2022 Monocytes (Bld) [#/Vol] 0.6 10*3/uL 0.0-0.8 [facility] Monocytes/100 WBC Auto (Bld) Ordered By: Sherrill Carlin on 07-12-2022 Monocytes/100 WBC (Bld) 10.6 % . [facility] Neutrophils Auto (Bld) [#/Vo l]Ordered By: Sherrill Carlin on 07-12-2022 Neutrophils (Bld) [#/Vol] 3.1 10*3/uL 1.8-7.7 [facility] Neutrophils/100 WBC Auto (Bl d)Ordered By: Sherrill Carlin on 07-12-2022 Neutrophils/100 WBC (Bld) 60.1 % . [facility] No Panel InformationOrdered By: Sherrill Carlin on 07-12-2022 Estimated GFR () 48 mL/Min [facility] Comment on above: GFR estimated refere nce range: According to KDOQI guidelines, <60 ml/min/1.73m2 is sufficient to diagnose a patient with chronic kidney disease. Pharmacy Creatinine Clearance (Chem N/A [facility] Phosphate [Mass/volume] in S violetta or PlasmaOrdered By: Sherrill Carlin on 07-12-2022 Phosphate [Mass/Vol] 4.2 mg/dL 2.5-4.6 [facility] Platelet mean volume Auto (B ld) [Entitic vol]Ordered By: Sherrill Carlin on 07-12-2022 Platelet mean volume (Bld) [Entitic vol] 10.3 fL 6.3-10.7 [facility] Platelets Auto (Bld) [#/Vol] Ordered By: Sherrill Carlin on 07-12-2022 Platelets (Bld) [#/Vol] 285 10*3/uL 150-450 [facility] Protein [Mass/volume] in Ser um or PlasmaOrdered By: Sherrill Carlin on 07-12-2022 Protein [Mass/Vol] 6.6 g/dL 6.1-7.9 [facility] RBC Auto (Bld) [#/Vol]Ordere d By: Sherrill Carlin on 07-12-2022 RBC (Bld) [#/Vol] 3.63 10*6/uL 3.60-5.00 [facility] Serum or plasma alanine waldron otransferase measurement without P-5'-P (enzymatic activiOrdered By: Sherrill Carlin on 07-12-2022 ALT No additional P-5'-P [Catalytic activity/Vol] 14 U/L 10-60 [facility] Serum or plasma albumin/glob ulin mass ratioOrdered By: Sherrill Carlin on 07-12-2022 Albumin/Globulin [Mass ratio] 1.0 {ratio} [facility] Serum or plasma alkaline kerry sphatase measurement (enzymatic activity/volume)Ordered By: Sherrill Carlin on 07-12-2022 ALP [Catalytic activity/Vol] 67 U/L 32-92 [facility] Serum or plasma aspartate am inotransferase measurement (enzymatic activity/volume)Ordered By: Sherrill Carlin on 07-12-2022 AST [Catalytic activity/Vol] 22 U/L 10-42 [facility] Serum or plasma calcium maggie urement (mass/volume)Ordered By: Sherrill Carlin on 07-12-2022 Calcium [Mass/Vol] 9.0 mg/dL 8.2-10.2 [facility] Serum or plasma chloride britton surement (moles/volume)Ordered By: Sherrill Carlin on 07-12-2022 Chloride [Moles/Vol] 99 mmol/L 95-114 [facility] Serum or plasma glucose maggie urement (mass/volume)Ordered By: Sherrill Carlin on 07-12-2022 Glucose [Mass/Vol] 199 mg/dL 70-100 [facility] Comment on above: ADA recommended refe [...] Cholesterol in HDL [Mass/Vol] 72 mg/dL 35-85 [facility] Comment on above: HDL CHOL ATP-III CLA SSIFICATION Cardiovascular Risk HDL > or equal to 60 mg/dL LOW HDL < 40 mg/dL HIGH HDL CHOL ATP-III CLA SSIFICATION Cardiovascular RiskHDL > or equal to 60 mg/dL LOWHDL < 40 mg/dL HIGH Serum or plasma intact parat hyroid hormone measurement (mass/volume)Ordered By: Sherrill Carlin on 07-12-2022 Parathyrin.intact [Mass/Vol] 82.4 pg/mL [facility] Serum or plasma potassium me asurement (moles/volume)Ordered By: Sherrill Carlin on 07-12-2022 Potassium [Moles/Vol] 5.4 mmol/L 3.5-5.1 [facility] Serum or plasma sodium measu rement (moles/volume)Ordered By: Sherrill Carlin on 07-12-2022 Sodium [Moles/Vol] 137 mmol/L 136-146 [facility] Serum or plasma total biliru bin measurement (mass/volume)Ordered By: Sherrill Carlin on 07-12-2022 Bilirubin [Mass/Vol] 0.4 mg/dL 0.3-1.2 [facility] Serum or plasma total carbon dioxide measurement (moles/volume)Ordered By: Sherrill Carlin on 07-12-2022 CO2 [Moles/Vol] 24.6 mmol/L 22.0-30.0 [facility] Serum or plasma total choles terol/high density lipoprotein (HDL) cholesterol mass ratOrdered By: Sherrill Carlin on 07-12-2022 Cholesterol.total/Choles terol in HDL [Mass ratio] 2.3 {ratio} <5.0 [facility] Serum or plasma urea nitroge n measurement (mass/volume)Ordered By: Sherrill Carlin on 07-12-2022 Urea nitrogen [Mass/Vol] 24 mg/dL 9- [facility] Triglyceride [Mass/volume] i n Serum or PlasmaOrdered By: Sherrill Carlin on 07-12-2022 Triglyceride [Mass/Vol] 66 mg/dL 35-149 [facility] Comment on above: TRIG ATP III CLASSIF [...] 20 mg/L (U) [Mass/Vol] 2.3 mg/dL 0.0-1.8 [facility] Urine microalbumin/creatinin e mass ratioOrdered By: Sherrill Carlin on 07-12-2022 Albumin/Creatinine DL <= 20 mg/L (U) [Mass ratio] 8.0 mg/g 0.0-30.0 [facility] Comment on above: 30-300 mg/g indicate s an increased risk for diabetic nephropathy. Greater than 300 mg/g is consistent with clinical nephropathy. (Am. J. Kidney Disease 1994, 25:107) CULTURE, URINE, ROUTINEon CULTURE, URINE, ROUTINE SEE NOTE Normal [facility] Comment on above: Result Comment: CULTURE, URINE, ROUTINE Micro Number: [id number] Test Status: Final Specimen Source: Urine Specimen Quality: Adequate Result: No Growth Performed By: #### 3 95 #### [facility] [address], [address] [place] [address] Winding Machine Operator: Edmundo Dacosta MD ALBUMIN, RANDOM URINE W/CREA TININEon 05-13-2021 ALBUMIN, URINE 0.3 mg/dL Normal See Note: [facility] Comment on above: Result Comment: Refe rence Range: Reference Range Not established Performed By: #### 5 [id number], 70869, 7600, 6517 #### [facility] [place] [address] Winding Machine Operator: Edmundo Dacosta MD ALBUMIN/CREATININE RATIO, RANDOM URINE [...] diagnostic category. Performed By: #### 5 [id number], 91890, 7600, 6517 #### [facility] [place] [address] Winding Machine Operator: Edmundo Dacosta MD Creatinine (U) [Mass/Vol] 24 mg/dL Normal 20-275 [facility] Comment on above: Performed By: #### 5 [id number], 87772, 7600, 6517 #### [facility] [place] [address] Winding Machine Operator: Edmundo Dacosta MD [facility] 05-13-2021 Albumin [Mass/Vol] 3.8 g/dL Normal 3.6-5.1 [facility] Comment on above: Performed By: #### 5 [id number], 32496, 7600, 6517 #### [facility] of [place] [address] Winding Machine Operator: Edmundo Dacosta MD Albumin/Globulin [Mass ratio] 1.3 {ratio} Normal 1.0-2.5 [facility] Comment on above: Performed By: #### 5 [id number], 74042, 7600, 6517 #### [facility] of [place] [address] Winding Machine Operator: Edmundo Dacosta MD ALP [Catalytic activity/Vol] 77 U/L Normal 37-153 [facility] Comment on above: Performed By: #### 5 [id number], 03237, 7600, 6517 #### [facility] of [address], [address] [place] [address] Winding Machine Operator: Edmundo Dacosta MD ALT [Catalytic activity/Vol] 12 U/L Normal 6-29 [facility] Comment on above: Performed By: #### 5 [id number], 50586, 7600, 6517 #### [facility] of [address], [address] [place] [address] Winding Machine Operator: Edmundo Dacosta MD AST [Catalytic activity/Vol] 20 U/L Normal 10-35 [facility] Comment on above: Performed By: #### 5 [id number], 55075, 7600, 6517 #### [facility] of [address], [address] [place] [address] Winding Machine Operator: Edmundo Dacosta MD Bilirubin [Mass/Vol] 0.6 mg/dL Normal 0.2-1.2 [facility] Comment on above: Performed By: #### 5 [id number], 46801, 7600, 6517 #### [facility] of [address], [address] [place] [address] Winding Machine Operator: Edmundo Dacosta MD BUN/CREATININE RATIO NOT APPLICABLE Normal 6-22 [facility] Comment on above: Performed By: #### 5 [id number], 56166, 7600, 6517 #### [facility] of [address], [address] [place] [address] Winding Machine Operator: Edmundo Dacosta MD Calcium [Mass/Vol] 9.3 mg/dL Normal 8.6-10.4 [facility] Comment on above: Performed By: #### 5 [id number], 37618, 7600, 6517 #### [facility] of [address], [address] [place] [address] Winding Machine Operator: Edmundo Dacosta MD Chloride [Moles/Vol] 103 mmol/L Normal 98-110 [facility] Comment on above: Performed By: #### 5 [id number], 61791, 7600, 6517 #### [facility] of [address], [address] [place] [address] Winding Machine Operator: Edmundo Dacosta MD CO2 [Moles/Vol] 27 mmol/L Normal 20-32 [facility] Comment on above: Performed By: #### 5 8984, , 0, 6517 #### [facility] of [address], [address] [place] [address] Winding Machine Operator: Edmundo Dacosta MD Creatinine [Mass/Vol] 1.03 mg/dL Normal 0.50-1.[address] [facility] Comment on above: Result Comment: For patients >49 years of age, the reference limit for Creatinine is approximately 13% higher for people identified as -Chadian. Performed By: #### 5 [id number], , 7599, 6517 #### [facility] of [address], [address] [place] [address] Winding Machine Operator: Edmundo Dacosta MD eGFR NON-AFR. SOUTH AFR[place] 62 mL/min/1.73m2 Normal > OR = 60 [facility] Comment on above: Performed By: #### 5 8984, , 7599, 6517 #### [facility] of [place] [address] Winding Machine Operator: Edmundo Dacosta MD GFR/1.73 sq M.predicted among blacks MDRD (S/P/Bld) [Vol rate/Area] 72 mL/min/{1.73_m2} Normal > OR = 60 [facility] Comment on above: Performed By: #### 5 8984, , 7599, 6517 #### [facility] of [address], [address] [place] [address] Winding Machine Operator: Edmundo Dacosta MD Globulin (S) [Mass/Vol] 2.9 g/dL Normal 1.9-3.7 [facility] Comment on above: Performed By: #### 5 8984, , 7599, 6517 #### [facility] of [place] [address] Winding Machine Operator: Edmundo Dacosta MD Glucose [Mass/Vol] 103 mg/dL High 65-99 [facility] Comment on above: Result Comment: Fasting reference interval For someone without known diabetes, a glucose value between 100 and 125 mg/dL is consistent with prediabetes and should be confirmed with a follow-up test. Performed By: #### 5 [id number], 20372, 7600, 6517 #### [facility] [address], [address] [place] [address] Winding Machine Operator: Edmundo Dacosta MD Potassium [Moles/Vol] 5.0 mmol/L Normal 3.5-5.[address] [facility] [address] [facility] Comment on above: Performed By: #### 5 89, 31322, 7600, 6517 #### [facility] [place] [address] Winding Machine Operator: Edmundo Dacosta MD Protein [Mass/Vol] 6.7 g/dL Normal 6.1-8.1 [facility] Comment on above: Performed By: #### 5 89, , 0, 6517 #### [facility] of [address], [address] [place] [address] Winding Machine Operator: Edmundo Dacosta MD Sodium [Moles/Vol] 137 mmol/L Normal 135-146 [facility] Comment on above: Performed By: #### 5 89, 05379, 7600, 6517 #### [facility] [place] [address] Winding Machine Operator: Edmundo Dacosta MD Urea nitrogen [Mass/Vol] 23 mg/dL Normal 7-25 [facility] Comment on above: Performed By: #### 5 89, 70087, 7600, 6517 #### [facility] of [place] [address] Winding Machine Operator: Edmundo Dacosta MD LIPID PANEL, [facility] - Cholesterol [Mass/Vol] 178 mg/dL Normal <200 [facility] Comment on above: Performed By: #### 5 8984, 11410, 7600, 6517 #### [facility] of [address] [place] [address] Winding Machine Operator: Edmundo Dacosta MD Cholesterol in HDL [Mass/Vol] 71 mg/dL Normal > OR = 50 [facility] Comment on above: Performed By: #### 5 [id number], 58027, 7600, 6517 #### [facility] [address], [address] [place] [address] Winding Machine Operator: Edmundo Dacosta MD Cholesterol in LDL [Mass/Vol] [...] LDL-C. Ronald BHAKTA et al. ANTHONY. 2013;310(19): 9642-7416 (http://education.Avaak.Total Prestige/faq/UXA318) Performed By: #### 5 8984, 01220, 7600, 6517 #### [facility] [address], [address] [place] [address] Winding Machine Operator: Edmundo Dacosta MD Cholesterol.total/Choles terol in HDL [Mass ratio] 2.5 {ratio} Normal <5.0 [facility] Comment on above: Performed By: #### 5 8984, 25283, 7600, 6517 #### [facility] [address], [address] [place] [address] Winding Machine Operator: Edmundo Dacosta MD NON HDL CHOLESTEROL 107 mg/dL (calc) Normal <130 [facility] Comment on above: Result Comment: For patients with diabetes plus 1 major ASCVD risk factor, treating to a non-HDL-C goal of <100 mg/dL (LDL-C of <70 mg/dL) is considered a therapeutic option. Performed By: #### 5 8984, 02414, 7600, 6517 #### [facility] [address], [address] [place] [address] Winding Machine Operator: Edmundo Dacosta MD Triglyceride [Mass/Vol] 51 mg/dL Normal <150 [facility] Comment on above: Performed By: #### 5 8984, 05478, 7600, 6517 #### [facility] [address], [address] [place] [address] Winding Machine Operator: Edmundo Dacosta MD TSH+FREE T4on 05-13-2021 Free T4 [Mass/Vol] 0.9 ng/dL Normal 0.8-1.8 [facility] Comment on above: Performed By: #### 5 8984, 24541, 7600, 6517 #### [facility] [address], [address] [place] [address] Winding Machine Operator: Edmundo Dacosta MD TSH Qn 1.64 m[IU]/L Normal [facility] Comment on above: Result Comment: Refe rence Range > or = 20 Years 0.40-4.50 Ranges First trimester 0.26-2.66 Second trimester 0.55-2.73 Third trimester 0.43-2.91 Performed By: #### 5 [id number], 40847, 7600, 6517 #### [facility] [address], [address] [place] [address] Winding Machine Operator: Edmundo Dacosta MD Estimated glomerular filtrat ion rate (GFR) non- Americanon 01-01-2021 GFR/1.73 sq M predicted among non-blacks MDRD (S/P/Bld) [Vol rate/Area] 54 mL/min/{1.73_m2} [facility] Otheron 01-01-2021 GFR/1.73 sq M.predicted MDRD (S/P/Bld) [Vol rate/Area] mL/min/{1.73_m2} [facility] Comment on above: GFR estimated refere nce range: According to KDOQI guidelines, <60 ml/min/1.73m2 is sufficient to diagnose a patient with chronic kidney disease. Pharmacy Creatinine Clearance (Chem N/A [facility] Serum or plasma calcium maggie urement (mass/volume)on 01-01-2021 Calcium [Mass/Vol] 9.1 mg/dL 8.2-10.2 [facility] Serum or plasma chloride britton surement (moles/volume)on 01-01-2021 Chloride [Moles/Vol] 104 mmol/L 95-114 [facility] Serum or plasma creatinine m easurement with calculation of estimated glomerular filtron 01-01-2021 Creatinine [Mass/Vol] 1.07 mg/dL 0.44-1.03 [facility] Serum or plasma glucose maggie urement (mass/volume)on 01-01-2021 Glucose [Mass/Vol] 78 mg/dL 70-100 [facility] Comment on above: ADA recommended refe rence rangeRandom Glucose Reference Range is dependent on time and content of last meal. Glucose of more than 200 mg/dL in a nonstressed, ambulatory subject supports the diagnosis of Diabetes Mellitus. Serum or plasma potassium me asurement (moles/volume)on 01-01-2021 Potassium [Moles/Vol] 4.4 mmol/L 3.5-5.1 [facility] Serum or plasma sodium measu rement (moles/volume)on 01-01-2021 Sodium [Moles/Vol] 138 mmol/L 136-146 [facility] Serum or plasma total carbon dioxide measurement (moles/volume)on 01-01-2021 CO2 [Moles/Vol] 25.3 mmol/L 22.0-30.0 [facility] Serum or plasma urea nitroge n measurement (mass/volume)on 01-01-2021 Urea nitrogen [Mass/Vol] 18 mg/dL 9-23 [facility] CULTURE, URINE, ROUTINEon CULTURE, URINE, ROUTINE SEE NOTE Normal [facility] Comment on above: Result Comment: CULTURE, URINE, ROUTINE Micro Number: [id number] Test Status: Final Specimen Source: NOT GIVEN Specimen Quality: Adequate Result: Less than 10,000 CFU/mL of single Gram negative organism isolated. No further testing will be performed. If clinically indicated, recollection using a method to minimize contamination, with prompt transfer to Urine Culture Transport Tube, is recommended. Performed By: #### 3 [id number] #### [facility], [address] [place] [id number] Winding Machine Operator: Edmundo Dacosta MD Vital Signs Date Time Vital Sign Value Performing Clinician Facility 07-09-2025 15:22-0400 Body height 165.1 cm Sherrill Carlin DO Work Phone: [facility] 07-09-2025 15:22-0400 Body mass index (BMI) [Ratio] 25.83 kg/m2 Sherrill Carlin DO Work Phone: [facility] 07-09-2025 15:22-0400 Body temperature 98.29 [degF] Sherrill Carlin DO Work Phone: [facility] 07-09-2025 15:22-0400 Body weight 70.4 kg Sherrill Carlin DO Work Phone: [facility] 07-09-2025 15:22-0400 Diastolic blood pressure 64 mm[Hg] Sherrill Carlin DO Work Phone: [facility] 07-09-2025 15:22-0400 Heart rate 90 /min Sherrill Carlin DO Work Phone: [facility] 07-09-2025 15:22-0400 Respiratory rate 18 /min Sherrill Carlin DO Work Phone: [facility] 07-09-2025 15:22-0400 SaO2% (BldA) [Mass fraction] 98 % Sherrill Carlin DO Work Phone: [facility] 07-09-2025 15:22-0400 Systolic blood pressure 120 mm[Hg] Sherrill Carlin DO Work Phone: [facility] 07-08-2025 11:12-0400 Body height 160.6 cm Sherrill Carlin DO Work Phone: [facility] 07-08-2025 11:12-0400 Body mass index (BMI) [Ratio] 27.2 kg/m2 Sherrill Carlin DO Work Phone: [facility] 07-08-2025 11:12-0400 Body weight 70.3 kg Sherrill Yuhas DO Work Phone: [facility] 07-08-2025 10:140400 Body height 159.69 cm Sherrill Yuhas DO Work Phone: [facility] 07-08-2025 10:14-0400 Body mass index (BMI) [Ratio] 27.7 kg/m2 Sherrill Yuhas DO Work Phone: [facility] 07-08-2025 10:140400 Body weight 70.8 kg Sherrill Yuhas DO Work Phone: [facility] 07-08-2025 10:14-0400 Diastolic blood pressure 68 mm[Hg] Sherrill Yuhas DO Work Phone: [facility] 07-08-2025 10:14-0400 Heart rate 84 /min Sherrill Odenhas DO Work Phone: [facility] 07-08-2025 10:14-0400 Respiratory rate 18 /min Sherrill Yuhas DO Work Phone: [facility] 07-08-2025 10:14-0400 SaO2% (BldA) [Mass fraction] 99 % Sherrill Yuhas DO Work Phone: [facility] 07-08-2025 10:14-0400 Systolic blood pressure 129 mm[Hg] Sherrill Yuhas DO Work Phone: [facility] 06-05-2025 11:07-0400 Body height 159.69 cm Sherrill Yuhas DO Work Phone: [facility] 06-05-2025 11:07-0400 Body mass index (BMI) [Ratio] 27.6 kg/m2 Sherrill Yuhas DO Work Phone: [facility] 06-05-2025 11:07-0400 Body weight 70.3 kg Sherrill Odenhas DO Work Phone: [facility] 06-05-2025 11:07-0400 Diastolic blood pressure 70 mm[Hg] Sherrill Odenhas DO Work Phone: [facility] 06-05-2025 11:07-0400 Heart rate 86 /min Sherrill Odenhas DO Work Phone: [facility] 06-05-2025 11:07-0400 Respiratory rate 18 /min Sherrill Odenhas DO Work Phone: [facility] 06-05-2025 11:07-0400 SaO2% (BldA) [Mass fraction] 97 % Sherrill Odenhas DO Work Phone: [facility] 06-05-2025 11:07-0400 Systolic blood pressure 118 mm[Hg] Sherrill Odenhas DO Work Phone: [facility] 05-20-2025 14:26-0400 Body height 159.69 cm Sherrill Oednhas DO Work Phone: [facility] 05-20-2025 14:26-0400 Body mass index (BMI) [Ratio] 30.4 kg/m2 Sherrill Odenhas DO Work Phone: [facility] 05-20-2025 14:26-0400 Body weight 77.56 kg Sherrill Odenhas DO Work Phone: [facility] 05-01-2025 10:44-0400 Body height 160.02 cm [facility] 05-01-2025 10:44-0400 Body mass index (BMI) [Ratio] 27.6 kg/m2 [facility] 05-01-2025 10:44-0400 Body weight 70.9 kg [facility] 05-01-2025 10:44-0400 Diastolic blood pressure 76 mm[Hg] [facility] 05-01-2025 10:44-0400 Heart rate 81 /min [facility] 05-01-2025 10:44-0400 Respiratory rate 18 /min [facility] 05-01-2025 10:44-0400 SaO2% (BldA) [Mass fraction] 99 % [facility] 05-01-2025 10:44-0400 Systolic blood pressure 125 mm[Hg] [facility] 02-19-2025 13:36-0400 Body height 160.02 cm [facility] 02-19-2025 13:36-0400 Body mass index (BMI) [Ratio] 27.9 kg/m2 [facility] 02-19-2025 13:36-0400 Body weight 71.5 kg [facility] 02-19-2025 13:36-0400 Diastolic blood pressure 70 mm[Hg] [facility] 02-19-2025 13:36-0400 Heart rate 83 /min [facility] 02-19-2025 13:36-0400 Respiratory rate 16 /min [facility] 02-19-2025 13:36-0400 SaO2% (BldA) [Mass fraction] 98 % [facility] 02-19-2025 13:36-0400 Systolic blood pressure 114 mm[Hg] [facility] 01-29-2025 13:24-0500 Body height 160.02 cm [facility] 01-29-2025 13:24-0500 Body mass index (BMI) [Ratio] 27.3 kg/m2 [facility] 01-29-2025 13:24-0500 Body weight 70.1 kg [facility] 01-29-2025 13:24-0500 Diastolic blood pressure 70 mm[Hg] [facility] 01-29-2025 13:24-0500 Heart rate 86 /min [facility] 01-29-2025 13:24-0500 Respiratory rate 18 /min [facility] 01-29-2025 13:24-0500 SaO2% (BldA) [Mass fraction] 97 % [facility] 01-29-2025 13:24-0500 Systolic blood pressure 111 mm[Hg] [facility] 11-19-2024 13:42-0500 Body height 165.1 cm Sherrill Jesusmatt DO Work Phone: [facility] 11-19-2024 13:42-0500 Body mass index (BMI) [Ratio] 25.56 kg/m2 Sherrill Lees DO Work Phone: [facility] 11-19-2024 13:42-0500 Body temperature 97.59 [degF] Sherrill Lees DO Work Phone: [facility] 11-19-2024 13:42-0500 Body weight 69.67 kg Sherrill Lees DO Work Phone: [facility] 11-19-2024 13:42-0500 Diastolic blood pressure 70 mm[Hg] Sherrill Lees DO Work Phone: [facility] 11-19-2024 13:42-0500 Heart rate 84 /min Sherrill Lees DO Work Phone: [facility] 11-19-2024 13:42-0500 Respiratory rate 18 /min Sherrill Lees DO Work Phone: [facility] 11-19-2024 13:42-0500 SaO2% (BldA) [Mass fraction] 98 % Sherrill Lees DO Work Phone: [facility] 11-19-2024 13:42-0500 Systolic blood pressure 110 mm[Hg] Sherrill Lees DO Work Phone: [facility] 11-14-2024 11:21-0500 Body height 160.02 cm [facility] 11-14-2024 11:21-0500 Body mass index (BMI) [Ratio] 27.3 kg/m2 [facility] 11-14-2024 11:21-0500 Body weight 70.08 kg [facility] 11-14-2024 11:21-0500 Diastolic blood pressure 78 mm[Hg] [facility] 11-14-2024 11:21-0500 Heart rate 83 /min [facility] 11-14-2024 11:21-0500 Respiratory rate 18 /min [facility] 11-14-2024 11:21-0500 SaO2% (BldA) [Mass fraction] 99 % [facility] 11-14-2024 11:21-0500 Systolic blood pressure 137 mm[Hg] [facility] 10-09-2024 11:48-0500 Body height 160.02 cm Sherrill Lees DO Work Phone: [facility] 10-09-2024 11:48-0500 Body mass index (BMI) [Ratio] 27.1 kg/m2 Sherrill Yuhas DO Work Phone: [facility] 10-09-2024 11:48-0500 Body weight 69.51 kg Sherrill Odenhas DO Work Phone: [facility] 10-09-2024 11:48-0500 Diastolic blood pressure 68 mm[Hg] Sherrill Odenhas DO Work Phone: [facility] 10-09-2024 11:48-0500 Heart rate 87 /min Sherrill Odenhas DO Work Phone: [facility] 10-09-2024 11:48-0500 Respiratory rate 18 /min Sherrill Yuhas DO Work Phone: [facility] 10-09-2024 11:48-0500 SaO2% (BldA) [Mass fraction] 98 % Sherrill Odenhas DO Work Phone: [facility] 10-09-2024 11:48-0500 Systolic blood pressure 109 mm[Hg] Sherrill Yuhas DO Work Phone: [facility] 09-25-2024 08:29-0400 Body height 160.02 cm DO Sherrill Yuhas Work Phone: [facility] 09-25-2024 08:29-0400 Body mass index (BMI) [Ratio] 26.9 kg/m2 DO Sherrill Yuhas Work Phone: [facility] 09-25-2024 08:29-0400 Body temperature 96.5 [degF] DO Sherrill Yuhas Work Phone: [facility] 09-25-2024 08:29-0400 Body weight 68.94 kg DO Sherrill Lees Work Phone: [facility] 09-25-2024 08:29-0400 Diastolic blood pressure 71 mm[Hg] DO Sherrill Lees Work Phone: [facility] 09-25-2024 08:29-0400 Heart rate 80 /min DO Sherrill Lees Work Phone: [facility] 09-25-2024 08:29-0400 Respiratory rate 16 /min DO Sherrill Lees Work Phone: [facility] 09-25-2024 08:29-0400 SaO2% (BldA) [Mass fraction] 100 % DO Sherrill Carlin Work Phone: [facility] 09-25-2024 08:29-0400 Systolic blood pressure 113 mm[Hg] DO Sherrill Carlin Work Phone: [facility] 08-28-2024 10:14-0400 Body height 160.02 cm [facility] 08-28-2024 10:14-0400 Body mass index (BMI) [Ratio] 27.3 kg/m2 [facility] 08-28-2024 10:14-0400 Body weight 69.88 kg [facility] 08-28-2024 10:14-0400 Diastolic blood pressure 73 mm[Hg] [facility] 08-28-2024 10:14-0400 Heart rate 85 /min [facility] 08-28-2024 10:14-0400 Respiratory rate 18 /min [facility] 08-28-2024 10:14-0400 SaO2% (BldA) [Mass fraction] 99 % [facility] 08-28-2024 10:14-0400 Systolic blood pressure 111 mm[Hg] [facility] 07-03-2024 09:16-0400 Body height 160.02 cm DO Sherrill Yuhas Work Phone: [facility] 07-03-2024 09:16-0400 Body mass index (BMI) [Ratio] 27.6 kg/m2 DO Sherrill Yuhas Work Phone: [facility] 07-03-2024 09:16-0400 Body weight 70.59 kg DO Sherrill Yuhas Work Phone: [facility] 06-27-2024 09:58-0400 Body height 160.02 cm DO Sherrill Yuhas Work Phone: [facility] 06-27-2024 09:58-0400 Body mass index (BMI) [Ratio] 27.6 kg/m2 DO Sherrill Yuhas Work Phone: [facility] 06-27-2024 09:58-0400 Body weight 70.81 kg DO Sherrill Yuhas Work Phone: [facility] 06-27-2024 09:58-0400 Diastolic blood pressure 72 mm[Hg] DO Sherrill Yuhas Work Phone: [facility] 06-27-2024 09:58-0400 Heart rate 90 /min DO Sherrill Cecillehas Work Phone: [facility] 06-27-2024 09:58-0400 Respiratory rate 18 /min DO Sherrill Odenhas Work Phone: [facility] 06-27-2024 09:58-0400 SaO2% (BldA) [Mass fraction] 98 % DO Sherrill Yuhas Work Phone: [facility] 06-27-2024 09:58-0400 Systolic blood pressure 126 mm[Hg] DO Sherrill Yuhas Work Phone: [facility] 05-15-2024 09:30-0400 Body height 160.02 cm DO Sherrill Yuhas Work Phone: [facility] 05-15-2024 09:30-0400 Body mass index (BMI) [Ratio] 28.3 kg/m2 DO Sherrill Carlin Work Phone: [facility] 05-15-2024 09:30-0400 Body weight 72.63 kg DO Sherrill Carlin Work Phone: [facility] 05-15-2024 09:30-0400 Diastolic blood pressure 71 mm[Hg] DO Sherrill Carlin Work Phone: [facility] 05-15-2024 09:30-0400 Respiratory rate 18 /min DO Sherrill Carlin Work Phone: [facility] 05-15-2024 09:30-0400 SaO2% (BldA) [Mass fraction] 98 % DO Sherrill Carlin Work Phone: [facility] 05-15-2024 09:30-0400 Systolic blood pressure 114 mm[Hg] DO Sherrill Carlin Work Phone: [facility] 04-30-2024 15:01-0400 Body height 160.02 cm [facility] 04-30-2024 15:01-0400 Body mass index (BMI) [Ratio] 29 kg/m2 [facility] 04-30-2024 15:01-0400 Body weight 74.38 kg [facility] 04-30-2024 15:01-0400 Diastolic blood pressure 80 mm[Hg] [facility] 04-30-2024 15:01-0400 Heart rate 98 /min [facility] 04-30-2024 15:01-0400 Respiratory rate 18 /min [facility] 04-30-2024 15:01-0400 SaO2% (BldA) [Mass fraction] 98 % [facility] 04-30-2024 15:01-0400 Systolic blood pressure 127 mm[Hg] [facility] 04-03-2024 10:44-0400 Body height 160.02 cm [facility] 04-03-2024 10:44-0400 Body mass index (BMI) [Ratio] 30.2 kg/m2 [facility] 04-03-2024 10:44-0400 Body weight 77.59 kg [facility] 04-03-2024 10:44-0400 Diastolic blood pressure 67 mm[Hg] [facility] 04-03-2024 10:44-0400 Heart rate 86 /min [facility] 04-03-2024 10:44-0400 Respiratory rate 18 /min [facility] 04-03-2024 10:44-0400 SaO2% (BldA) [Mass fraction] 98 % [facility] 04-03-2024 10:44-0400 Systolic blood pressure 146 mm[Hg] [facility] 01-12-2024 09:40-0500 Body height 165.1 cm Sherrill Carlin DO Work Phone: [facility] 01-12-2024 09:40-0500 Body mass index (BMI) [Ratio] 27.97 kg/m2 Sherrill Carlin DO Work Phone: [facility] 01-12-2024 09:40-0500 Body temperature 97.81 [degF] Sherrill Lees DO Work Phone: [facility] 01-12-2024 09:40-0500 Body weight 76.25 kg Sherrill Cecillesheilas DO Work Phone: [facility] 01-12-2024 09:40-0500 Diastolic blood pressure 66 mm[Hg] Sherrill Carlin DO Work Phone: [facility] 01-12-2024 09:40-0500 Heart rate 91 /min Sherrill Lees DO Work Phone: [facility] 01-12-2024 09:40-0500 SaO2% (BldA) [Mass fraction] 97 % Sherrill Lees DO Work Phone: [facility] 01-12-2024 09:40-0500 Systolic blood pressure 110 mm[Hg] Sherrill Carlin DO Work Phone: [facility] 09-26-2023 09:00-0400 Body height 165.1 cm Buddy Miranda Other [facility] Other 09-26-2023 09:00-0400 Body mass index (BMI) [Ratio] 28.35 kg/m2 Buddy Miranda Other [facility] Other 09-26-2023 09:00-0400 Body temperature 96.3 [degF] Buddy Miranda Other [facility] Other 09-26-2023 09:00-0400 Body weight 77.29 kg Buddy Miranda Other [facility] Other 09-26-2023 09:00-0400 Diastolic blood pressure 84 mm[Hg] Buddy Miranda Other [facility] Other 09-26-2023 09:00-0400 Respiratory rate 16 /min Buddy Miranda Other [facility] Other 09-26-2023 09:00-0400 Systolic blood pressure 138 mm[Hg] Buddy Miranda Other [facility] Other 09-21-2022 10:00-0400 Body height 165.1 cm Buddy Miranda Other [facility] Other 09-21-2022 10:00-0400 Body mass index (BMI) [Ratio] 26.76 kg/m2 Buddy Miranda Other [facility] Other 09-21-2022 10:00-0400 Body temperature 97.5 [degF] Buddy Miranda Other [facility] Other 09-21-2022 10:00-0400 Body weight 72.94 kg Buddy Miranda Other [facility] Other 09-21-2022 10:00-0400 Diastolic blood pressure 79 mm[Hg] Buddy Miranda Other [facility] Other 09-21-2022 10:00-0400 Respiratory rate 18 /min Buddy Miranda Other [facility] Other 09-21-2022 10:00-0400 SaO2% (BldA) [Mass fraction] 98 % Buddy Miranda Other [facility] Other 09-21-2022 10:00-0400 Systolic blood pressure 133 mm[Hg] Buddy Miranda Other [facility] Other Encounters Encounter Date Encounter Type Care Provider Facility Start: 07-16-2025 End: 07-16-2025 Refill Sherrill Carlin DO Work Phone: [facility] Comment on above: Mixed hyperlipidemia Start: 07-09-2025 End: 07-09-2025 Encounter for general adult medical examination with abnormal findings Sherrill Carlin DO Work Phone: [facility] [employer] [facility] Start: 07-09-2025 End: 07-09-2025 Periodic preventive med est patient 40-64yrs Sherrill Carlin DO Work Phone: [facility] Comment on above: Abnormal wellness ex am (Primary Dx); Mixed hyperlipidemia; At risk for coronary artery disease; Encounter for screening mammogram for malignant neoplasm of breast; 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 Start: 07-09-2025 End: 07-09-2025 ambulatory SHERRILL CARLIN [facility] Start: 07-08-2025 End: 07-08-2025 ambulatory Sherrill Carlin DO Work Phone: [facility] Work Phone: Start: 07-08-2025 End: 07-08-2025 Patient encounter procedure Tony Delarosa -[facility] Work Phone: Start: 07-08-2025 End: 07-08-2025 ambulatory Sherrill Carlin DO Work Phone: [facility] Work Phone: Start: 07-08-2025 End: 07-08-2025 Patient encounter procedure Apolinar Kelly MD -[facility] Work Phone: Start: 06-05-2025 End: 06-05-2025 ambulatory Sherrill Carlin DO Work Phone: [facility] Work Phone: Start: 06-05-2025 End: 06-05-2025 Patient encounter procedure Rodger Avila [employer] AND SAL[employer] RECORD SUPERVISOR-C [facility] Work Phone: Start: 06-03-2025 End: 06-03-2025 Patient encounter procedure Rodger Avila [employer]ST AND SALES RECORD SUPERVISOR-C -[facility] Work Phone: Start: 06-03-2025 End: 06-03-2025 ambulatory Sherrill Carlin DO Work Phone: [facility] Work Phone: Start: 05-20-2025 End: 05-20-2025 Patient encounter procedure Tony Delarosa -[facility] Work Phone: Start: 05-01-2025 End: 05-01-2025 ambulatory [facility] Work Phone: Start: 05-01-2025 End: 05-01-2025 Patient encounter procedure [facility] Work Phone: Start: 04-03-2025 End: 04-03-2025 Celso Thakur MD Work Phone: [facility] Start: 03-13-2025 End: 03-13-2025 Refill [facility] Comment on above: Mixed hyperlipidemia Start: 02-20-2025 End: 02-20-2025 Office outpatient visit 25 minutes Sherrill Thakur MD Work Phone: [facility] Comment on above: 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, indeterminate stage (Primary Dx); Anophthalmos of right eye; 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 (CMS-HCC); Pseudophakia of left eye Start: 02-20-2025 End: 02-20-2025 ambulatory [facility] Comment on above: 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, indeterminate stage Start: 02-19-2025 End: 02-19-2025 ambulatory [facility] Work Phone: Start: 02-19-2025 End: 02-19-2025 Patient encounter procedure [facility] Work Phone: Start: 01-29-2025 End: 01-29-2025 ambulatory [facility] Work Phone: Start: 01-29-2025 End: 01-29-2025 Patient encounter procedure [facility] Work Phone: Start: 11-19-2024 End: 11-19-2024 Office outpatient visit 25 minutes Sherrill Carlin DO Work Phone: [facility] Comment on above: Spinal stenosis of l umbar region with neurogenic claudication (Primary Dx); Osteoarthritis of right patellofemoral joint; Mixed hyperlipidemia Start: 11-19-2024 End: 11-19-2024 [facility] Start: 11-14-2024 End: 11-14-2024 Patient encounter procedure [facility] Work Phone: Start: 10-29-2024 End: 10-29-2024 Refill Sherrill Carlin DO Work Phone: [facility] Comment on above: Mixed hyperlipidemia Start: 10-09-2024 End: 10-09-2024 ambulatory Sherrill Carlin DO Work Phone: [facility] Work Phone: Start: 10-09-2024 End: 10-09-2024 Patient encounter procedure Sherrill Carlin DO Work Phone: [facility] Work Phone: Start: 10-01-2024 End: 10-01-2024 Bamboo flowsheet Ghanshyam A Felter RAILROAD CONSTRUCTION DIRECTOR-CONCRETE M[employer]ING [employer]ANT SUPERINTENDENT Work Phone: [facility] Start: 10-01-2024 End: 10-01-2024 Bamboo flowsheet Ghanshyam A Felter RAILROAD CONSTRUCTION DIRECTOR-CONCRETE M[employer]ING [employer]ANT SUPERINTENDENT Work Phone: [facility] Start: 10-01-2024 End: 10-01-2024 Office outpatient visit 15 minutes Ghanshyam A Felter RAILROAD CONSTRUCTION DIRECTOR-CONCRETE M[employer]ING [employer]ANT SUPERINTENDENT Work Phone: [facility] Comment on above: Other atopic dermati tis; Other seborrheic dermatitis; EIC (epidermal inclusion cyst) Start: 10-01-2024 End: 10-01-2024 ambulatory GHANSHYAM A FELTER Not Available Start: 09-25-2024 End: 09-25-2024 ambulatory DO Sherrill Carlin Work Phone: [facility] Work Phone: Start: 09-25-2024 End: 09-25-2024 Patient encounter procedure DO Sherrill Carlin Work Phone: [facility] Work Phone: Start: 09-21-2024 End: 09-21-2024 Patient encounter procedure DO Sherrill Carlin Work Phone: [facility] [place] Work Phone: Start: 09-21-2024 End: 09-21-2024 ambulatory Buddy Miranda Facility:[facility] Start: 09-10-2024 End: 09-10-2024 ambulatory [facility] Comment on above: 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 (CMS-HCC) Start: 09-10-2024 End: 09-10-2024 Office outpatient visit 15 minutes Shefali Bailey MD Work Phone: [facility] Comment on above: 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 ([facility]-HCC) (Primary Dx); Anophthalmos of right eye; Primary open angle glaucoma of left eye, indeterminate stage Start: 09-10-2024 End: 09-10-2024 ambulatory SHEFALI BAILEY [facility] Start: 08-28-2024 End: 08-28-2024 ambulatory [facility] Work Phone: Start: 08-28-2024 End: 08-28-2024 Patient encounter procedure [facility] Work Phone: Start: 08-22-2024 End: 08-22-2024 Refill Sherrill Carlin DO Work Phone: [facility] Comment on above: Mixed hyperlipidemia Start: 07-03-2024 End: 07-03-2024 ambulatory DO Sherrill Carlin Work Phone: [facility] Work Phone: Start: 07-03-2024 End: 07-03-2024 Patient encounter procedure DO Sherrill Carlin Work Phone: [facility] Work Phone: Start: 06-27-2024 End: 06-27-2024 ambulatory DO Sherrill Carlin Work Phone: [facility] Work Phone: Start: 06-27-2024 End: 06-27-2024 Patient encounter procedure DO Sherrill Carlin Work Phone: [facility] Work Phone: Start: 05-21-2024 End: 05-21-2024 Refedison Gregg CMA [facility] Comment on above: Diabetic peripheral neuropathy ([facility]) Start: 05-15-2024 End: 05-15-2024 ambulatory DO Sherrill Carlin Work Phone: [facility] Work Phone: Start: 05-15-2024 End: 05-15-2024 Patient encounter procedure DO Sherrill Carlin Work Phone: [facility] Work Phone: Start: 05-14-2024 End: 05-14-2024 ambulatory DO Sherrill Carlin Work Phone: [facility] Work Phone: Start: 05-14-2024 End: 05-14-2024 Patient encounter procedure DO Sherrill Carlin Work Phone: [facility] [place] Work Phone: Start: 05-02-2024 End: 05-02-2024 ambulatory [facility] Work Phone: Start: 05-02-2024 End: 05-02-2024 Patient encounter procedure [facility] Work Phone: Start: 05-01-2024 End: 05-10-2024 Telephone encounter Sherrill Carlin DO Work Phone: [facility] Start: 04-30-2024 End: 04-30-2024 ambulatory [facility] Work Phone: Start: 04-30-2024 End: 04-30-2024 Patient encounter procedure [facility] [facility] Work Phone: Start: 04-25-2024 End: 04-25-2024 [facility] Work Phone: Start: 04-25-2024 End: 04-25-2024 Patient encounter procedure [facility] Work Phone: Start: 04-12-2024 End: 04-12-2024 Patient encounter procedure [facility] Work Phone: Start: 04-11-2024 Non-patient / Non-visit [facility] Work Phone: Start: 04-03-2024 End: 04-03-2024 [facility]ulatory [facility] Work Phone: Start: 04-03-2024 End: 04-03-2024 Patient encounter procedure [facility] Work Phone: Start: 03-14-2024 End: 03-14-2024 Refill Sherrill Carlin DO Work Phone: [facility] Comment on above: Mixed hyperlipidemia Start: 02-28-2024 Refill Sherrill Vidal O Work Phone: [facility] Comment on above: Diabetic peripheral neuropathy ([facility]) Start: 02-09-2024 End: 02-09-2024 [facility] Comment on above: 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, indeterminate stage Start: 02-09-2024 End: 02-09-2024 Office outpatient visit 25 minutes Sherrill Thakur MD Work Phone: [facility] Comment on above: 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, indeterminate stage (Primary Dx); Pseudophakia of left eye; 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 ([facility]); Anophthalmos of right eye Start: 01-30-2024 Telephone encounter Carey Daniels MA [facility] Comment on above: Preventative Screeni ng Start: 01-12-2024 End: 01-13-2024 ambulatory SHERRILL CARLIN [facility] Start: 01-12-2024 Non-patient / Non-visit [facility] [employer] Work Phone: Start: 01-12-2024 End: 01-12-2024 Office outpatient visit 25 minutes Sherrill Carlin DO Work Phone: [facility] Comment on above: 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 ([facility]) (Primary Dx); Mixed hyperlipidemia; Stage 3a chronic kidney disease ([facility] Start: 01-11-2024 Refill Juarez Carmina hawkins DO Work Phone: [facility] Comment on above: Chronic hyperkalemia Start: 12-13-2023 Refill Sherrill Carlin D O Work Phone: [facility] Comment on above: Diabetic peripheral neuropathy ([facility] Start: 09-26-2023 End: 09-26-2023 ambulatory Buddy Miranda Other [place] [facility] [employer] Other Start: 09-26-2023 Office outpatient vi sit 25 minutes Buddy Miranda [facility] Start: 09-22-2023 End: 09-22-2023 ambulatory DO Sherrill Carlin Work Phone: [facility] Work Phone: Start: 09-22-2023 End: 09-22-2023 Patient encounter procedure DO Sherrill Carlin Work Phone: [facility] [place] Work Phone: Start: 03-17-2023 End: 03-18-[address] SHERRILL CARLIN Facility: Start: 09-21-2022 End: 09-21-2022 ambulatory Buddy Miranda Other [place] [employer] Other Start: 09-21-2022 Office outpatient vi sit 15 minutes [facility] Start: 09-20-2022 End: 09-20-2022 ambulatory DO Sherrill Carlin Work Phone: [facility] Work Phone: Start: 09-20-2022 End: 09-20-2022 Patient encounter procedure DO Sherrill Carlin Work Phone: [facility] [place] Start: 07-12-2022 End: 07-12-2022 Patient encounter procedure DO Sherrill Carlin Work Phone: [facility] [place] Start: 01-01-2021 End: 01-01-2021 Patient encounter procedure Sherrill Carlin [facility] Procedures Date Procedure Procedure Detail Performing Clinician Start: 07-09-2025 Adult depression scr eening assessment Sherrill Carlin DO Work Phone: Start: 02-20-2025 End: 02-20-2025 Computerized ophthalmic imaging optic nerve Sherrill Thakur MD Work Phone: Start: 02-20-2025 Diabetic retinal eye exam Sherrill Thakur MD Work Phone: Start: 09-21-2024 Bacteria identified in Urine by [...] olume] in Urine by Test strip Sherrill Carson Phone: Start: 09-05-2023 Diabetic retinal eye exam Sherrill Carson Phone: Start: 08-23-2023 Adult depression scr eening assessment Sherrill Carlin DO Work Phone: Start: 03-03-2023 Microalbumin [Mass/v olume] in Urine by Test strip Sherrill Carlin DO [employer] Phone: Plan of Treatment Date Care Activity Detail Author Start: 01-03-2030 DTaP,Tdap and Td Vaccines (2 - Td or Tdap) DTaP,Tdap and Td Vaccines (2 - Td or Tdap) [facility] Start: 06-07-2027 Screening for malign ant neoplasm of colon [facility] Start: 07-09-2026 Adult BMI Screening Adult BMI Screen ing [facility] Start: 07-09-2026 Depression Screening Depression Scre ening [facility] Start: 03-13-2026 Statin Use: Diabetic Statin Use: Krista betic [facility] Start: 02-24-2026 End: 02-24-2026 Patient encounter procedure 02/24/2026 3:10 PM EDT [facility] [address] [place] [phone] Sherrill Thakur MD [address] [place] [address] [facility] Start: 02-24-2026 End: 02-24-2026 ambulatory 02/24/2026 3:00 PM EDT Ophthalmology Imaging [facility] [address] [place] [address] [facility] Start: 02-20-2026 Glaucoma screening Diabetic Op hthalmology Exam [facility] Start: 02-20-2026 Tobacco Screening Tobacco Screening [facility] Start: 11-19-2025 Adult BMI Screening Adult BMI Screen ing [facility] Start: 11-19-2025 Tobacco Screening Tobacco Screening [facility] Start: 10-01-2025 End: 10-01-2025 Patient encounter procedure 10/01/2025 9:50 AM EST Office Visit [facility] [address] [place] [address] Wayne Ghanshyam Musa, RAILRO[employer] CONSTRUCTION DIRECTOR-CONCRETE [employer] SUPERINTENDENT [address] [place] [address] [facility] Start: 09-16-2025 End: 09-16-2025 Patient encounter procedure [facility] Start: 09-10-2025 Glaucoma screening Diabetic Op hthalmology Exam [facility] Start: 09-10-2025 Tobacco Screening Tobacco Screening [facility] Start: 07-29-2025 Influenza vaccination Influenza Vacc ine [facility] Start: 07-09-2025 End: 07-09-2026 CT Heart and Coronary arteries for calcium scoring WO contrast CT heart without contrast including scoring Imaging Routine At risk for coronary artery disease Expected: 07/09/2025, Expires: 07/09/2026 [facility] Comment on above: Expected: 07/09/2025 , Expires: 07/09/2026 Start: 07-09-2025 End: 07-09-2026 DBT Breast - bilateral screening Mammography screening bilateral with CAD Imaging Routine Encounter for screening mammogram for malignant neoplasm of breast Expected: 07/09/2025, Expires: 07/09/2026 [facility] Comment on above: Expected: 07/09/2025 , Expires: 07/09/2026 Start: 02-20-2025 End: 02-20-2025 ambulatory 02/20/2025 3:20 PM EDT Ophthalmology Imaging [facility] [address] [place] [address] [facility] Start: 02-20-2025 End: 02-20-2025 Patient encounter procedure 02/20/2025 3:20 PM EDT Office Visit [facility] [address] [place] [address] Sherrill Thakur MD [address] [place] [address] [facility] Start: 02-08-2025 Glaucoma screening Diabetic Op hthalmology Exam [facility] Start: 02-08-2025 Tobacco Screening Tobacco Screening [facility] Start: 01-12-2025 Adult BMI Screening Adult BMI Screen ing [facility] Start: 01-12-2025 Depression Screening Depression Scre ening [facility] Start: 01-12-2025 Tobacco Screening Tobacco Screening [facility] Start: 01-12-2025 Urine screening for protein Urine Microalbumin [facility] Start: 12-13-2024 Statin Use: Diabetic Statin Use: Krista betic [facility] Start: 11-14-2024 End: 11-14-2024 Patient encounter procedure 11/14/2024 2:00 PM EST [facility] [address] [place] [address] Sherrill Carlin, [address] [place] [address] [facility] Start: 10-01-2024 End: 10-01-2024 Patient encounter procedure 10/01/2024 9:50 AM EST Office Visit [facility] [address] [place] [address] Ghanshyam Black, RAILRO[employer] CONSTRUCTION DIRECTOR-CONCRETE [employer] SUPERINTENDENT [address] [place] [address] Arrived [facility] Comment on above: Arrived Start: 09-10-2024 End: 09-10-2024 Patient encounter procedure 09/10/2024 3:30 PM EDT Office Visit [facility] [address] [place] [phone] Shefali Bailey MD [address] [place], [place] [id number] [facility] Start: 09-05-2024 Glaucoma screening Diabetic Op hthalmology Exam [facility] Start: 09-05-2024 Tobacco Screening Tobacco Screening [facility] Start: 08-23-2024 Adult BMI Screening Adult BMI Screen ing [facility] Start: 08-23-2024 Depression Screening Depression Scre ening [facility] Start: 07-29-2024 COVID-19 Vaccine ( season) COVID-19 Vaccine () [facility] Start: 07-29-[address] [facility] Start: 05-14-2024 Insulin C-peptide measurement [facility] Start: 03-03-2024 Diabetic foot examination Diabetic Foot Exam [facility] Start: 03-03-2024 Urine screening for protein Urine Microalbumin [facility] Start: 02-09-2024 End: 02-09-2024 Patient encounter procedure 02/09/2024 8:10 AM EDT Office Visit [facility] [address] [place] [phone] Sherrill Thakur MD [address] [place], [place] [phone] [facility] Start: 02-09-2024 End: 02-09-2024 ambulatory 02/09/2024 8:00 AM EDT [facility] [address] [place] [address] [facility] Start: 01-12-2024 End: 01-12-2024 Patient encounter procedure 01/12/2024 9:20 AM EST Office Visit [facility] [address] [place] [address] Sherrill Carlin, DO [address] [place] [address] [facility] Start: 07-29-2023 COVID-19 Vaccine ( season) COVID-19 Vaccine ( season) [facility] Start: 07-29-2023 Influenza vaccination Influenza Vacc ine [facility] Start: 12-08-2021 Screening for malign ant neoplasm of colon [facility] Start: 2008 Screening for malign ant neoplasm of breast Mammogram [facility] Start: 1998 Screening for malign ant neoplasm of cervix [facility] Start: 1989 Screening for malign ant neoplasm of cervix Pap Smear [facility] Start: 1986 Adult BMI Follow Up Plan Adult BMI Follow Up Plan [facility] Start: 1968 Screening for malign ant neoplasm of colon [facility] Comprehensive metabo lic 2000 panel - Serum or Plasma [facility] Comprehensive metabo lic 2000 panel - Serum or Plasma [facility] End: 07-09-2026 Comprehensive metabolic 2000 panel - Serum or Plasma Comprehensive metabolic panel Lab Routine Mixed hyperlipidemia 1 Occurrences starting 07/09/2025 until 07/09/2026 [facility] Work Phone: Comment on above: 1 Occurrences starti ng 07/09/2025 until 07/09/2026 Insulin C-peptide measurement [facility] End: 07-09-2026 Lipid 1996 panel - Serum or Plasma Lipid profile Lab Routine Mixed hyperlipidemia 1 Occurrences starting 07/09/2025 until 07/09/2026 [facility] Comment on above: 1 Occurrences starti ng 07/09/2025 until 07/09/2026 Patient Education Diabetes and diet [facility] Work Phone: [facility] Immunizations Immunization Date Immunization Notes Care Provider Fa cility 11-27-2024 influenza virus vacc ine, unspecified formulation Sherrill Carlin DO Work Phone: [facility] 11-09-2023 influenza, injectabl e, quadrivalent, preservative free Sherrill Lees DO Work Phone: [facility] 11-09-2023 influenza virus vacc ine, unspecified formulation Sherrill Lees DO Work Phone: [facility] 09-23-2022 zoster vaccine recombinant Sherrill Lees DO Work Phone: [facility] 07-14-2022 zoster vaccine recombinant Sherrill Carlin DO Work Phone: [facility] 01-03-2020 tetanus toxoid, redu shane diphtheria toxoid, and acellular pertussis vaccine, adsorbed Sherrill Carlin DO Work Phone: [facility] 10-04-2019 Influenza, injectabl e, Madin Vikki Canine Kidney, quadrivalent with preservative Sherrill Lees DO Work Phone: [facility] 10-04-2019 influenza virus vacc ine, unspecified formulation Sherrill Lees DO Work Phone: [facility] 10-24-2018 Influenza, injectabl e, Madin Vikki Canine Kidney, preservative free, quadrivalent Sherrill Odenhas DO Work Phone: [facility] 10-24-2018 pneumococcal polysaccharide vaccine, 23 valent Sherrill Lees DO Work Phone: [facility] 10-12-2017 Influenza, injectabl e, Madin Vikki Canine Kidney, preservative free, quadrivalent Sherrill Odenhas DO Work Phone: [facility] 10-12-2017 pneumococcal conjuga te vaccine, 13 valent Sherrill Odenhas DO Work Phone: [facility] 11-10-2016 influenza, seasonal, injectable, preservative free Sherrill Odenhas DO Work Phone: [facility] 10-28-2015 influenza, seasonal, injectable, preservative free Sherrill Odenhas DO Work Phone: [facility] 08-07-2014 influenza, seasonal, injectable Sherrill Yuhas DO Work Phone: [facility] Payers Date Payer Category Payer Self-pay [id number] 2023 Private Health Insurance [employer] [id number] 2021 Commercial Managed C are - PPO [employer] [id number] 2021 Unknown [employer] M MO SUPERMED [id number] 2021-Present [phone] [address] [place] [id number] [id number] 1968 Unknown [id number]. 593 1968 Unknown [id number] [id number]. 1286 1968 Unknown [id number] [id number]. 1259 1968 Unknown [id number] [id number]. 1286 1968 Unknown [id number] [id number]. 1286 1968 Unknown [id number] [id number]. 1286 1968 Unknown [id number] [id number]. 1286 1968 Unknown [id number] [id number]. 1286 1968 Unknown [id number] [id number]. 1286 1968 Unknown [id number] [id number]. 1286 1968 Unknown [id number] [id number]. 1286 1959 Unknown [id number] Unknown [id number] Unknown [id number] 531 Unknown [id number] 531 Social History Date Type Detail [facility] Start: 1970 Sex Assigned At Female [facility] Start: 01-08-2021 End: 09-29-2023 Sex Assigned At [facility] [email or web address] Other Start: 09-14-2018 End: 03-03-2023 Tobacco smoking status NHIS Never smoked tobacco (finding) [facility] Start: 03-03-2023 End: 09-29-2023 Tobacco use and exposure Smokeless tobacco non-user [facility] [employer] Start: 09-29-2023 End: 02-20-2025 Alcoholic beverage intake Current drinker of alcohol (finding) [facility] Start: 01-08-2021 End: 09-29-2023 History of Social function [facility] Start: 09-16-2023 Alcohol Comment 3 or 4 drinks on a typical day/ 2 to 4 times a month [facility] Start: 1970 Sex assigned at Not on file P [employer] Start: 07-03-2015 End: 10-09-2024 Sex Female (finding) [facility] Adolescent depressio n screening assessment 0 [facility] Start: 03-03-2023 Alcohol Comment socially [facility] Goals Date Patient Goal Desired Activity /State Clinical Notes 09-21-2022 to 07-09-2025 Sherrill Carlin, DO - 07/09/2025 3:15 PM EDT Note Date & Type Note Facility 07-09-2025 History of Present illness Narrative IM PROGRESS NOTE Patient - Yuridia Dahl Age - 54 y.o. - 1970 ASSESSMENT & PLAN Patient presented to office today for Annual Adult Wellness Visit. Education was provided on healthy nutrition, including a diet rich in fruits and vegetables, minimizing simple carbohydrates, salt, and saturated fats. Encouraged regular cardiovascular exercise such as walking at least 30 minutes daily, 5 times per week - goal. Emphasized preventive health measures reduce health risks and promote healthy living. Goal for pt. is to achieve healthy BMI of 25 or under to reduce risk of developing diabetes and cardiovascular diseases. 1. Abnormal wellness exam (Primary) -health maintenance activities appropriate for a 54-year-old female were reviewed with the patient. Needs to get up-to-date on her mammogram, as well as shingles vaccination. -no colon cancer screening need for 2 years ([place]) 2. Mixed hyperlipidemia -currently on atorvastatin 80 mg daily - Comprehensive metabolic panel; Future - Lipid profile; Future 3. At risk for coronary artery disease -patient at risk for coronary disease with some vague symptoms which could be construed as angina -we discussed options for evaluation including a stress test verses CAC scoring -patient opts for CAC scoring, and realizes if it is markedly elevated would need to proceed with a stress test - CT heart without contrast including scoring; Future 4. Encounter for screening mammogram for malignant neoplasm of breast -mammogram ordered today - Mammography screening bilateral with CAD; Future 5. 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 Has type 1 diabetes and this is monitored and treated at the endocrine clinic in [place]. She states her A1cs have been generally around 7.3%. There have been no new changes to her treatment. -she has been having more problems with pain in her right knee. The knee bothers her if she climbs into bed every evening. Her bed is very high, and she has to flex her right knee to an extreme amount to get into bed. After this there is aching which will occasionally keep her awake. Mild instability when putting pressure on the knee while walking, on stairs, or getting out of bed. No previous injury -she does describe intermittent episodes of a funny feeling in her upper chest. Sometimes last for hours and resolve on its own. Has not gotten worse or better, but has never gone away. Feels somewhat like reflux, but not exactly the same. No previous coronary disease, but did have a stress test approximately 5 or 6 years ago at [facility]. -her neuropathy has been stable. On a combination of pregabalin on a routine basis, with single dose of gabapentin for breakthrough. Has to use the gabapentin once or twice a week. She believes she is starting to notice some side effects from both, finding herself to be more sleepy, sometimes having word-finding problems. -currently having problems with some heel ulcers on her feet. Is seen the wound clinic at [place]. Not on antibiotics, but using Santyl ointment and getting debridement regularly. A review of systems was negative except for the following: Ophthalmic: loss of vision and has been longstanding in the right eye. Breasts: Overdue for mammogram Cardiovascular: chest pain Musculoskeletal: joint pain, joint stiffness, and joint swelling Neurological: numbness/tingling. Exam BP 120/64 (BP Site: Left Arm, BP Postition: Sitting, BP CUFF SIZE: M (9-13 inches)) Pulse 90 Temp 36.8 C (98.3 F) (Oral) Resp 18 Ht 165.1 cm (5' 5 ) Wt 70.4 kg (155 lb 3.2 oz) SpO2 98% BMI 25.83 kg/m Physical Exam Vitals reviewed. Constitutional: General: She is not in acute distress. Appearance: She is well-developed. She is not toxic-appearing. HENT: Head: Normocephalic and atraumatic. Right Ear: External ear normal. Left Ear: External ear normal. Nose: Nose normal. Eyes: General: No scleral icterus. Comments: Glass right eye. Neck: Vascular: No carotid bruit. Cardiovascular: Rate and Rhythm: Normal rate and regular rhythm. Heart sounds: No murmur heard. No gallop. Pulmonary: Effort: Pulmonary effort is normal. Breath sounds: No wheezing or rales. Abdominal: Palpations: Abdomen is soft. Musculoskeletal: General: Tenderness (Right knee medial joint space with palpation) present. Right lower leg: No edema. Left lower leg: No edema. Comments: Right knee: Mar negative. Drawer sign negative. Crepitance in the patellofemoral groove with movement of the patella. Lymphadenopathy: Cervical: No cervical adenopathy. Skin: General: [...] Outpatient Medications: atorvastatin (LIPITOR) 80 mg tablet, TAKE 1 TABLET IN THE MORNING, Disp: 90 tablet, Rfl: 1 biotin 1 mg capsule, Take by mouth., Disp: , Rfl: cetirizine (ZyrTEC) 10 mg tablet, Take by mouth., Disp: , Rfl: dorzolamide-timoloL (COSOPT) 22.3-6.8 mg/mL ophthalmic solution, INSTILL 1 DROP IN THE LEFT EYE EVERY 12 HOURS, Disp: 10 mL, Rfl: 3 DUPIXENT SYRINGE 300 mg/2 mL syringe SUBQ injection, , Disp: , Rfl: ergocalciferol (DRISDOL) 1,250 mcg (50,000 unit) capsule, , Disp: , Rfl: fluocinonide (LIDEX) 0.05 % external solution, , Disp: , Rfl: gabapentin (NEURONTIN) 300 mg capsule, TAKE 1 CAPSULE DAILY, Disp: 90 capsule, Rfl: 3 HumaLOG U-100 Insulin 100 unit/mL injection, USE 60 UNITS DAILY VIA INSULIN PUMP, Disp: 90 mL, Rfl: 3 ketoconazole (NIZORAL) 2 % shampoo, Apply 1 Application topically once a week., Disp: , Rfl: afenx-wjgyw-5-bdv-nbg-odbxnd (KRILL OIL) 111-33-32-50 mg capsule, Take by mouth., Disp: , Rfl: pregabalin (LYRICA) 100 mg capsule, TAKE 1 CAPSULE THREE TIMES A DAY, Disp: 90 capsule, Rfl: 2 SantyL ointment, APPLY NICKEL THICK LAYER TO LEFT HEEL WOUND DAILY, Disp: , Rfl: Lab Results No visits with results within [...] Testing No results found. Sherrill Carlin DO., [facility]: [phone] documented in this encounter [facility] 05-01-2025 Evaluation note Authored May 01, 2025 12:17pm Highest weight: 170 lbs. She is down 13.7 lbs . Start weight: 171.1 lbs. She is down 14.7 lbs. today with a weight of 156.3 lbs. she is up 1.8bs. since last visit was 01/29/2025. Starting Date: 04-03-2024. 1. Abnormal weight gain 2. Obesity- improved with still a greater than 7.5% weight loss since starting our program despite being super busy, eating more sweets and nighttime snacks. Must try to control her environment better with less trigger/temptations. She was previously eating much healthier [employer]/following the plate method. She will see the crocheter hand frequently and have a bioimpedance scan done to further direct her healthy eating. We have had a long discussion about adding more exercise slowly and safely with her neuropathy and diabetes. Regular cardio and strength training would be awesome for her health and may help prevent further weight regain. She we will continue to watch her blood sugar closely with exercise [...] our diabetic department and seeing her diabetic crocheter hand Mariama. And her A1c is dropped from [...] and behavioral modification versus short-term dieting. Her [place] was 8 with starting the program. She [...] diabetic nurse practitioner for type 1 diabetes. [facility] Work Phone: 1([phone]) 311-408806-04-2025 Evaluation note* Author Apolinar Kelly [facility] Authored May 01, 2025 12:17 pm Highest weight: 170 lbs. She is down 13.7 lbs . Start weight: 171.1 lbs. She is down 14.7 lbs. today with a weight of 156.3 lbs. she is up 1.8bs. since last visit was 01/29/2025. Starting Date: 04-03-2024. 1. Abnormal weight gain 2. Obesity- improved with still a greater than 7.5% weight loss since starting our program despite being super busy, eating more sweets and nighttime snacks. Must try to control her environment better with less trigger/temptations. She was previously eating much healthier [employer]/following the plate method. She will see the crocheter hand frequently and have a bioimpedance scan done to further direct her healthy eating. We have had a long discussion about adding more exercise slowly and safely with her neuropathy and diabetes. Regular cardio and strength training would be awesome for her health and may help prevent further weight regain. She we will continue to watch her blood sugar closely with exercise [...] our diabetic department and seeing her diabetic crocheter hand Mariama. And her A1c is dropped from [...] and behavioral modification versus short-term dieting. Her [place] was 8 with starting the program. She [...] for type 1 diabetes. Author Katelyn Echavarria [facility] Authored July 08, 2025 10 :29am Highest weight: 170 lbs. She is down 14.0 lbs . Start weight: 171.1 lbs. She is down 15.1 lbs. today with a weight of 156.0 lbs. she is down 0.3 lbs. since last visit was 05/01/2025. Starting Date: 04-03-2024. 1. Abnormal weight gain 2. Obesity- improved with still a greater than 7.5% weight loss since starting our program despite being super busy, eating more sweets and nighttime snacks. Must try to control her environment better with less trigger/temptations. She was previously eating much healthier [employer]/following the plate method. She will see the crocheter hand frequently and have a bioimpedance scan done to further direct her healthy eating. We have had a long discussion about adding more exercise slowly and safely with her neuropathy and diabetes. Regular cardio and strength training would be awesome for her health and may help prevent further weight regain. She we will continue to watch her blood sugar closely with exercise [...] our diabetic department and seeing her diabetic crocheter hand Mariama. And her A1c is dropped from [...] and behavioral modification versus short-term dieting. Her [place] was 8 with starting the program. She [...] diabetic nurse practitioner for type 1 diabetes. [facility] Work Phone: [phone]) [phone] Evaluation note* Author Apolinar Kelly [facility] Authored May 01, 2025 12:17 pm Highest weight: 170 lbs. She is down 13.7 lbs . Start weight: 171.1 lbs. She is down 14.7 lbs. today with a weight of 156.3 lbs. she is up 1.8bs. since last visit was 01/29/2025. Starting Date: 04-03-2024. 1. Abnormal weight gain 2. Obesity- improved with still a greater than 7.5% weight loss since starting our program despite being super busy, eating more sweets and nighttime snacks. Must try to control her environment better with less trigger/temptations. She was previously eating much healthier [employer]/following the plate method. She will see the crocheter hand frequently and have a bioimpedance scan done to further direct her healthy eating. We have had a long discussion about adding more exercise slowly and safely with her neuropathy and diabetes. Regular cardio and strength training would be awesome for her health and may help prevent further weight regain. She we will continue to watch her blood sugar closely with exercise [...] our diabetic department and seeing her diabetic crocheter hand Mariama. And her A1c is dropped from [...] and behavioral modification versus short-term dieting. Her [place] was 8 with starting the program. She [...] for type 1 diabetes. Author Apolinar Kelly [facility] Authored July 08, 2025 10 :58am Highest weight/start weight: 171.1 lbs. She is down 15.1 lbs. today with a weight of 156.0 lbs. she is down 0.3 lbs. since last visit was 05/01/2025. Starting Date: 04-03-2024. 1. Abnormal weight gain 2. Obesity- improved with greater than 7.5% weight loss since starting our program despite being busy, eating out frequently, using some alcohol, eating more sweets and nighttime snacks at times. She should try to control her environment better with less trigger/temptations. She understands the benefits of healthy whole foods made in her own kitchen. She was previously eating much healthier [employer]/following the plate method better. She will continue to see the crocheter hand frequently and have a bioimpedance scan done to further direct her healthy eating as she needs to work on adding muscle mass and her percent body fat was still elevated at 44%. She has a small waist and does not have other signs of insulin resistance/metabolic syndrome. We have had another long discussion about adding more exercise slowly and safely with her neuropathy and diabetes. Regular cardio and strength training would be awesome for her health and may help prevent further weight regain. She we will continue to watch her blood sugar closely with exercise [...] our diabetic department and seeing her diabetic crocheter hand Mariama. And her A1c is dropped from [...] She has an insulin pump and CGM without hypoglycemia. She concerned about abdominal weight gain [...] and behavioral modification versus short-term dieting. Her [place] was 8 with starting the program. She [...] diabetic nurse practitioner for type 1 diabetes. [facility] Work Phone: 1([phone]) [phone] NoteReliability was good. Progression has been stable. Findings include superior arcuate defect, inferior arcuate defect. Notes 24-2 TOP OSMANUALLY TRANSCRIBED [id number] NoteReliability was good. Progression has been stable. Findings include superior arcuate defect, inferior arcuate defect. Notes 24-2 TOP OSMANUALLY TRANSCRIBED [id number] History of Present illness Narrative* Sherrill Thakur MD - 02/20/2025 3:20 PM EDT Assessment/Plan: Intra-ocular pressure is in the low 20s. The visual field testing is consistent with her diabetic eye disease and heavy PRP. The OCT images look stable. Clinically, the disc looks okay. There is no severe pallor and I do not appreciate any cupping although the cup is obscured to a degree by the old fibrosis from her proliferative disease. She will continue the dorzolamide/timolol twice a day and follow-up in a year. She sees Dr. Bailey in the fall for follow-up of her diabetic eye disease. ICD-10-CM 1. Primary open angle glaucoma of left eye, indeterminate stage H40.1124 2. Anophthalmos of right eye Q11.1 3. 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 ([facility]) E11.3552 4. Pseudophakia of left eye Z96.1 Yuridia Darcy Hesham had concerns including Glaucoma. HPI Glaucoma In left eye. Side effects of treatment include none. Treatment compliance is misses drops infrequently. Comments Vision is foggy OS. Pt is using Dorzolamide/Timolol BID OS @ 09:00, Systane PRN OU Patient is a type 1 diabetic for 53 years. Most recent A1C reading was 6.9 and was taken 1 day(s) ago. Patient reports last fasting BS was 109. This was taken today. Pt is seeing Rodger Avila APRN-ELIESER for this. Last edited by Gabby Alexander on 02/20/2025 4:42 PM. ROS Positive for: Eyes Negative for: Constitutional, Gastrointestinal, Neurological, Skin, Genitourinary, Musculoskeletal,HENT, Endocrine, Cardiovascular, Respiratory, Psychiatric, Allergic/Imm, Heme/Lymph Last edited by Katie Da Silva on 02/20/2025 3:08 PM. No current outpatient medications on file. (Ophthalmic Drugs) No current facility-administered medications for this visit. (Ophthalmic Drugs) Current Outpatient Medications (Other) Medication Sig atorvastatin (LIPITOR) 80 mg tablet Take 1 tablet (80 mg total) by mouth daily after dinner. biotin 1 mg capsule Take by mouth. cetirizine (ZyrTEC) 10 mg tablet Take by mouth. clobetasoL (TEMOVATE) 0.05 % cream clobetasol 0.05 % topical cream dorzolamide-timoloL (COSOPT) 22.3-6.8 mg/mL ophthalmic solution Administer 1 drop into the left eyeevery 12 (twelve) hours. DUPIXENT SYRINGE 300 mg/2 mL syringe SUBQ injection ergocalciferol (DRISDOL) 1,250 mcg (50,000 unit) capsule Vitamin D2 1,250 mcg (50,000 unit) capsule fluocinonide (LIDEX) 0.05 % external solution APPLY TO SCALP 1 OR 2 TIMES DAILY NEEDED FOR ITCHING. AVOID FACE AND NECK gabapentin (NEURONTIN) 300 mg capsule TAKE 1 CAPSULE DAILY HumaLOG U-100 Insulin 100 unit/mL injection USE 60 UNITS DAILY VIA INSULIN PUMP ketoconazole (NIZORAL) 2 % shampoo Apply 1 Application topically once a week. rotwq-tkjzc-4-iwg-pbf-xqeuoa (KRILL OIL) 264-62-54-50 mg capsule Take by mouth. pregabalin (LYRICA) 100 mg capsule TAKE 1 CAPSULE THREE TIMES A DAY No current facility-administered medications for this visit. (Other) Ms. Dahl has a past medical history of H/O vitrectomy, Hypercholesteremia, S/P YAG capsulotomy, left, and Type 1 diabetes ([facility]). She has a past surgical history that includes Cataract extraction w/ intraocular lens implant (Left, 06/05/2009); Retinal laser procedure (Left); Eye surgery (Right, 03/16/2001); Enucleation (Right, 03/16/2001); and YAG Capsulotomy (Left, 03/30/2012). Base Eye Exam Visual Acuity (Snellen - Linear) Right Left Dist sc Prosthesis 20/70 +2 Dist ph sc 20/50 Tonometry (Applanation, 4:47 PM) Right Left Pressure 23 T1 p/dilation JCB Pachymetry Right Left Thickness 623 Pupils Dark Light Shape React APD Right Left 3 2.5 Round Minimal None Neuro/Psych Oriented x3: Yes Mood/Affect: Normal Dilation Left eye: 1.0% Tropicamide, 2.5% Phenylephrine Hydrochloride @ 3:41 PM Slit Lamp and Fundus Exam External Exam Right Left External prosthesis Normal Slit Lamp Exam Right Left Lids/Lashes prosthesis Normal Conjunctiva/Sclera White and quiet Cornea Clear Anterior Chamber Deep and quiet Iris no rubeosis Lens PC IOL w/open posterior capsule Fundus Exam Right Left Disc old fibrous tissue -obscured view C/D Ratio Vertical 0.3 C/D Ratio Horizontal 0.3 Macula Epiretinal membrane Vessels Vascular attenuation Periphery heavy PRP Scribe Statement: I, CHARLES Mcclendon, scribed for and in the presence of Sherrill Thakur MD, who performed the above service. documented in this encounterOhioHealth Shelby HospitalAir Intelligence [facility] Providence [id number] Instructions* Patient Instructions* Gabby Alexander - 02/20/2025 3:20 PM EDT Images from the original note were [...] more? Gl[employer] http://www.glaucoma.org/treatment/eyedrop-tips.php [facility] [place] https://www.nei.nih.gov/kqyvf-mwemm-lda-health/bvy-cvtcetrtww-dgf-diseases/glauc elizabeth/glaucoma-medicines/woz-mot-nmi-drops Last Reviewed Date 2020-10-29 Consumer Information Use [...] or approved for treating a specific patient. [employer] and its affiliatesdisclaim any warranty or liability relating to this information or the use thereof. The use of thisinformation is governed by the Terms of Use, available at https://www.Branchly.Total [employer]ige/en/know/mracevdt-cokiejeabtpfv-lhogr Copyright Copyright 2022 [employer] and its affiliates and/or licensors. All rights reserved. documented in this encounterOhio State East Hospital03-04-2025 Evaluation note* Author Apolinar Kelly [facility] Authored January 29, 2025 3:14 pm Highest weight: 170 lbs. She is down [...] our diabetic department and seeing her diabetic crocheter hand Mariama. And her A1c is dropped from [...] and behavioral modification versus short-term dieting. Her [place] was 8 with starting the program. She [...] diabetic nurse practitioner for type 1 diabetes. [facility] Work Phone: [phone]) 782-591103-04-2025 Evaluation note* Author Katelyn Echavarria [facility] Authored May 01, 2025 [...] our diabetic department and seeing her diabetic crocheter hand Mariama. And her A1c is dropped from [...] and behavioral modification versus short-term dieting. Her [place] was 8 with starting the program. She [...] diabetic nurse practitioner for type 1 diabetes. [facility] Work Phone: 1([phone]) 377-858112-23-2024 History of Present illness Narrative* Sherrill Rosenberg Raegan, DO - 11/19/2024 2:00 PM EST IM PROGRESS NOTE Patient - Yuridia Dahl Age - 54 y.[facility]. [facility] 1970 [id number]ESS[facility] & PLAN 1. Spinal stenosis of [...] which showed degenerative changes throughout the lumbar spine.Had physical therapy ordered, but did not complete [...] lower leg: No edema. Comments: Right knee: aMr negative. Drawer sign negative. Crepitance in the [...] topically once a week., Disp: , Rfl: ybxug-uarbn-6-njc-awz-wrnnmg (KRILL OIL) 770-17-00-50 mg capsule, Take by mouth., Disp: , [...] Testing No results found. Sherrill Carlin DO., [facility] Office: [phone] documented in this encounterOhio State East Hospital11-12-2024 Evaluation note* Author Katelyn Echavarria [facility] Authored January 29, 2025 1:43 pm Highest weight: 170 lbs. She is down [...] our diabetic department and seeing her diabetic crocheter hand Mariama. And her A1c is dropped from [...] and behavioral modification versus short-term dieting. Her [place] was 8 with starting the program. She [...] diabetic nurse practitioner for type 1 diabetes. [facility] Work Phone: 1(195) 494-413311-04-2024 History of Present illness Narrative* Ghanshyam Black, RAILROAD CONSTRUCTION DIRECTOR-CONCRETE MIXING PLANT SUPERINTENDENT - 10/01/2024 9:50 AM EST Follow-Up: Diagnosis: [...] 1 year, follow up documented in this encounterEllett Memorial [id number] NoteQuality was good. Progression has been stable. [...] Sugar/Blood Pressure control and close follow-up with PCP/Pediatric Geneticist -Advised of importance in BS/BP control in [...] both accurate and complete. documented in this encounterOhio State East Hospital10-01-2024 Evaluation note* Author Apolinar Kelly [facility] Authored August 28, 2024 9: 57am Highest [...] our diabetic department and seeing her diabetic crocheter hand Mariama. And her A1c is dropped from [...] and behavioral modification versus short-term dieting. Her [place] was 8 with starting the program. She [...] for type 1 diabetes. Author Katelyn Echavarria [facility] Authored October 09, 2024 12:04pm Highest weight: [...] our diabetic department and seeing her diabetic crocheter hand Mariama. And her A1c is dropped from [...] and behavioral modification versus short-term dieting. Her [place] was 8 with starting the program. She [...] diabetic nurse practitioner for type 1 diabetes. [facility] Work Phone: [phone]) 283-215707-31-2024 Evaluation note* Author Apolinar Kelly [facility] Authored June 27, 2024 10:4 2am Highest [...] our diabetic department and seeing her diabetic crocheter hand Mariama. And her A1c is dropped from [...] and behavioral modification versus short-term dieting. Her [place] was 8 with starting the program. She [...] for type 1 diabetes. Author Katelyn Echavarria [facility] Authored August 28, 2024 10 :34am Highest [...] our diabetic department and seeing her diabetic crocheter hand Mariama. And her A1c is dropped from [...] and behavioral modification versus short-term dieting. Her [place] was 8 with starting the program. She [...] diabetic nurse practitioner for type 1 diabetes. [facility] Work Phone: 1([phone]) [phone] Evaluation note* Author Apolinar Kelly [facility] Authored June 27, 2024 10:4 2am Highest [...] our diabetic department and seeing her diabetic crocheter hand Mariama. And her A1c is dropped from [...] and behavioral modification versus short-term dieting. Her [place] was 8 with starting the program. She [...] for type 1 diabetes. Author Maria Fernanda [facility] Authored August 21, 2024 3:36pm Highest weight: [...] our diabetic department and seeing her diabetic crocheter hand Mariama. And her A1c is dropped from [...] and behavioral modification versus short-term dieting. Her [place] was 8 with starting the program. She [...] diabetic nurse practitioner for type 1 diabetes. [facility] Work Phone: [phone]) 215-525307-31-2024 Evaluation note* Author Apolinar Kelly [facility] Authored June 27, 2024 10:4 2am Highest weight: 170 lbs. She is down 13.0 lbs . Start weight: 171.1 lbs. She is down 14.0 lbs. today with a weight of 156.2 lbs. she is down 4.0 since last visit was 05/15/2024. Starting Date: 5-7-2024. 1. Abnormal weight gain 2. Obesity-Significant improvements [...] our diabetic department and seeing her diabetic crocheter hand Mariama. And her A1c is dropped from [...] and behavioral modification versus short-term dieting. Her [place] was 8 with starting the program. She [...] for type 1 diabetes. Author Apolinar Kelly [facility] Authored August 28, 2024 10 :57am Highest [...] our diabetic department and seeing her diabetic crocheter hand Mariama. And her A1c is dropped from [...] and behavioral modification versus short-term dieting. Her [place] was 8 with starting the program. She [...] diabetic nurse practitioner for type 1 diabetes. [facility] Work Phone: 1([phone]) [phone] Evaluation note* Author Apolinar Kelly [facility] Authored May 15, 2024 10:1 5am Highest [...] and behavioral modification versus short-term dieting. Her [place] was 8 with starting the program. She [...] for type 1 diabetes. Author Apolinar Kelly [facility] Authored June 27, 2024 10:4 2am Highest [...] our diabetic department and seeing her diabetic crocheter hand Mariama. And her A1c is dropped from [...] and behavioral modification versus short-term dieting. Her [place] was 8 with starting the program. She [...] diabetic nurse practitioner for type 1 diabetes. [facility] Work Phone: [phone]) 944-979106-04-2024 Miscellaneous Notes* Telephone Encounter - Jackie Jimenez - 05/01/2024 8:22 AM EDT ----- Message from Sherrill Carlin DO sent at 01/12/2024 6:45 PM EST ----- DM recheck * Telephone Encounter - Jackiesujata Jimenez - 05/01/2024 8:22 AM EDT Sent mychart msg * Telephone Encounter - Jackiesujata Jimenez - 05/01/2024 8:22 AM EDT LM on VM * Telephone Encounter - Jackie Jimenez - 05/01/2024 8:22 AM EDT sending letter documented in this encounterOhio State East Hospital06-04-2024 Telephone encounter Note* Telephone Encounter - Jackiesujata Jimenez - 05/01/2024 8:22 AM EDT ----- Message from Sherrill Carlin DO sent at 01/12/2024 6:45 PM EST ----- DM recheck [facility]-04-[facility] Telephone encounter Note* Telephone Encounter - Jackiesujata Jimenez - 05/01/2024 8:22 AM EDT Sent mychart msg [facility]06-04-[facility] Telephone encounter Note* Telephone Encounter - Jackie Jimenez - 05/01/2024 8:22 AM EDT LM on VM [employer] [id number] Telephone encounter Note* Telephone Encounter - Jackie Jimenez - 05/01/2024 8:22 AM EDT sending letter [employer] [id number] Evaluation note* Author Apolinar Kelly [facility] Authored April 03, 2024 12:57p m Assessment: [...] and behavioral modification versus short-term dieting. Her [place] was 8 with starting the program. She [...] Our exercise program was recommended with our retail pharmacy technician/obesity exercise group. Handout given. Our free weekly [...] and benefits of prescribed meds discussed. Initial nxpo-oa-tcqr interview/evaluation. The patient was counseled in detail on the options for weight loss in an individual setting. 65 minutes was spent caring for the patient, counseling/educating patient on the options for the treatment of obesity and related healthcare issues. The program's treatment goals were reviewed with the patient. Each aspect of the program was discussed with the patient. [facility] Work Phone: 1(817) 465-559205-07-2024 Evaluation note* Author Apolinar Kelly [facility] Authored April 03, 2024 12:57p m Assessment: [...] and behavioral modification versus short-term dieting. Her [place] was 8 with starting the program. She [...] Our exercise program was recommended with our retail pharmacy technician/obesity exercise group. Handout given. Our free weekly [...] and benefits of prescribed meds discussed. Initial vyco-og-wesb interview/evaluation. The patient was counseled in detail on the options for weight loss in an individual setting. 65 minutes was spent caring for the patient, counseling/educating patient on the options for the treatment of obesity and related healthcare issues. The program's treatment goals were reviewed with the patient. Each aspect of the program was discussed with the patient. Author Katelyn Echavarria [facility] Authored May 15, 2024 9:50 am Highest [...] and behavioral modification versus short-term dieting. Her [place] was 8 with starting the program. She [...] diabetic nurse practitioner for type 1 diabetes. [facility] Work Phone: 1(511) 246-165005-07-2024 Evaluation note* Author Apolinar Kelly [facility] Authored April 03, 2024 12:57p m Assessment: [...] and behavioral modification versus short-term dieting. Her [place] was 8 with starting the program. She [...] Our exercise program was recommended with our retail pharmacy technician/obesity exercise group. Handout given. Our free weekly [...] and benefits of prescribed meds discussed. Initial ppcp-vz-xznh interview/evaluation. The patient was counseled in detail on the options for weight loss in an individual setting. 65 minutes was spent caring for the patient, counseling/educating patient on the options for the treatment of obesity and related healthcare issues. The program's treatment goals were reviewed with the patient. Each aspect of the program was discussed with the patient. Author Apolinar Kelly [facility] Authored May 15, 2024 10:1 5am Highest [...] and behavioral modification versus short-term dieting. Her [place] was 8 with starting the program. She [...] for type 1 diabetes. Author Katelyn Echavarria [facility] Authored June 27, 2024 10:1 8am Highest [...] and behavioral modification versus short-term dieting. Her [place] was 8 with starting the program. She [...] diabetic nurse practitioner for type 1 diabetes. [facility] Work Phone: 1(217) 763-823003-14-2024 NoteReliability was borderline. Progression has been stable. Findings include (Inferior>superior arcuate). Notes 24-2 TOP OSMANUALLY TRANSCRIBED [id number] NoteReliability was borderline. Progression has been stable. Findings include (Inferior>superior arcuate). Notes 24-2 TOP OSMANUALLY TRANSCRIBED [id number] History of Present illness Narrative* Sherrill Thakur [...] eye associated with type 2 diabetes mellitus ([facility]) E11.3552 4. 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 sotzm-tfohc-1-wta-qqr-crfsub (KRILL OIL) 468-63-79-50 mg capsule Take by mouth. LOKELMA 5 gram packet MIX AND DRINK 1 PACKET TWO TIMES A WEEK pregabalin (LYRICA) 100 mg capsule TAKE 1 CAPSULE THREE TIMES A DAY clobetasoL (TEMOVATE) 0.05 % lotion clobetasol 0.05 % lotion (Patient not taking: Reported on 02/09/2024) dorzolamide-timoloL (COSOPT) 22.3-6.8 mg/mL ophthalmic solution Administer 1 drop into the left eyeevery 12 (twelve) hours. tjfdjzxum-X2-fnE66-algal oil (FOLTANX RF/MENTAX) 3 mg-35 mg-2 mg -90.314 mg capsule Metanx (algal oil) 3 mg-35 mg-2 mg-90.314 mg capsule (Patient not taking: Reported on 02/09/2024) No current facility-administered medications for this visit. (Other) Ms. Dahl has a past medical history of H/O vitrectomy, Hypercholesteremia, S/P YAG capsulotomy, left, and Type 1 diabetes ([facility]). She has a past surgical history [...] both accurate and complete. documented in this encounterOhio [facility] Instructions* Patient Instructions* Gabby Harrison 02/09/2024 8:10 AM EDT Images from the [...] more? [employer] http://www.glaucoma.org/treatment/eyedrop-tips.php [facility] [place] https://www.nei.nih.gov/suugu-obckb-ios-health/xoj-awsnduuqgm-bcd-diseases/glauc elizabeth/glaucoma-medicines/vot-eys-lah-drops Last Reviewed Date 2020-10-29 Consumer Information Use [...] or approved for treating a specific patient. [employer] and its affiliatesdisclaim any warranty or liability relating to this information or the use thereof. The use of thisinformation is governed by the Terms of Use, available at https://www.Branchly.com/en/know/zwiebxoj-dxognxkitcmac-affzy Copyright Copyright 2022 [employer] and its affiliates and/or licensors. All rights reserved. documented in this encounterOhioHealth Shelby HospitalAir Intelligence [facility] [id number] Miscellaneous Notes* Telephone Encounter - Carey Nelson CMA - 01/30/2024 10:20 AM EST Spoke with patient regarding cologuard. Patient plans to complete soon. documented in this encounterOhio [facility]-04-[facility]24 Telephone encounter Note* Telephone Encounter - Carey Nelson CMA - 01/30/2024 10:20 AM EST Spoke with patient regarding cologuard. Patient plans to complete soon. [facility] History of Present illness Narrative* Sherrill Carlin DO - 01/12/2024 9:20 AM EST IM PROGRESS NOTE Patient - Yuridia Dahl Age - 53 y.o. - 1970 ASSESSMENT & PLAN 1. 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 Stage 3a chronic kidney disease ([facility]) -microalbumin as above -on Lokelma intermittently, based on suspected potassium intake. -uses it if she has potatoes, tomatoes, etc. Subjective DIABETIC VISIT This is a follow up of a pre-existing problem. Patient self monitoring includes CGM. Uses untapt device which communicates with her insulin pump. [...] topically once a week., Disp: , Rfl: tfyrldhnf-T7-mwR14-algal oil (FOLTANX RF/MENTAX) 3 mg-35 mg-2 mg [...] a day as needed., Disp: , Rfl: jqxov-yrcyi-1-odd-mcp-ypccsm (KRILL OIL) [id number] mg capsule, Take by mouth., Disp: , [...] Testing No results found. Sherrill Carlin DO., [facility] Office: [phone] documented in this encounterOhio State East Hospital10-30-2023 Evaluation note* Encounter Date Diagnosis Assessment [...] PCP for lipid profile and LFT monitoring Sulmaq Other [id number] NotePROCEDURE: XR KNEE RT 3V DATE: 03/17/2023 [...] Electronically authenticated by: IVORY KING Date: 2023-03-17 10:50[facility]04-20-2023 NotePROCEDURE: XR HIP LT 2 3V W [...] Electronically authenticated by: IVORY KING Date: 2023-03-17 10:48[facility]10-25-2022 Evaluation note* Encounter Date Diagnosis Assessment Notes [...] GI work-up including a Cologuard or colonoscopy Sulmaq Other Evaluation noteNo assessment information available [facility] Work Phone: Evaluation note* Author Katelyn Echavarria [facility] Authored April 03, 2024 11:45a m Assessment: [...] Our exercise program was recommended with our retail pharmacy technician/obesity exercise group. Handout given. Our free weekly [...] and benefits of prescribed meds discussed. Initial stme-jw-opty interview/evaluation. The patient was counseled in detail on the options for weight loss in an individual setting. [ ] minutes was spent caring for the patient, counseling/educating patient on the options for the treatment of obesity and related healthcare issues. The program's treatment goals were reviewed with the patient. Each aspect of the program was discussed with the patient. [facility] Work Phone: Evaluation note* Diagnosis Other atopic dermatitis Other seborrheic dermatitis EIC (epidermal inclusion cyst) Sebaceous cyst documented in this encounter [facility] HealthcareEvaluation note* Diagnosis Spinal stenosis of lumbar region with neurogenic claudication- Primary Osteoarthritis of right patellofemoral joint Mixed hyperlipidemia documented in this encounter [facility]* Diagnosis Diabetic peripheral neuropathy ([facility]) Type II or unspecified type diabetes mellitus with neurological manifestations, not stated as uncontrolled documented [facility] this encounter [facility]* Diagnosis Chronic hyperkalemia Hyperpotassemia documented in this encounter [facility]* Diagnosis Diabetic peripheral neuropathy (CMS-HCC) Type II or unspecified type diabetes mellitus with neurological manifestations, not stated as uncontrolled documented in this encounter [facility]* Diagnosis 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 (CMS-HCC)- Primary Mixed hyperlipidemia Stage 3a chronic kidney disease (CMS-HCC) documented in this encounter [facility]* Diagnosis Primary open angle glaucoma of left eye, indeterminate stage- Primary Pseudophakia of left eye Lens replaced by other means 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 (CMS-HCC) Anophthalmos of right eye Unspecified clinical anophthalmos Primary open angle glaucoma of left eye, indeterminate stage Primary open angle glaucoma of left eye, indeterminate stage documented in this encounter [facility]* Diagnosis Primary open angle glaucoma of left eye, indeterminate stage documented in this encounter [facility]* Diagnosis Diabetic peripheral neuropathy (CMS-HCC) Type II or unspecified type diabetes mellitus with neurological manifestations, not stated as uncontrolled documented in this encounter [facility]* Diagnosis Mixed hyperlipidemia documented in this encounter [facility]* Diagnosis 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 ([facility])- Primary Anophthalmos of right eye Unspecified clinical anophthalmos Primary open angle glaucoma of left eye, indeterminate stage 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 (CMS-HCC) documented in this encounter [facility] SystemEvaluation note* Diagnosis 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 (CMS-HCC) documented in this encounter [facility] SystemEvaluation note* Diagnosis Mixed hyperlipidemia documented in this encounter [facility] SystemEvaluation note* Diagnosis Primary open angle glaucoma of left eye, indeterminate stage- Primary Anophthalmos of right eye Unspecified clinical anophthalmos 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 (CMS-HCC) Pseudophakia of left eye Lens replaced by other means Primary open angle glaucoma of left eye, indeterminate stage Primary open angle glaucoma of left eye, indeterminate stage documented in this encounter [facility] SystemEvaluation note* Diagnosis Primary open angle glaucoma of left eye, indeterminate stage documented in this encounter [facility] SystemEvaluation note* Diagnosis Mixed hyperlipidemia documented in this encounter [facility] SystemEvaluation note* Diagnosis Abnormal wellness exam- Primary Mixed hyperlipidemia At risk for coronary artery disease Encounter for screening mammogram for malignant neoplasm of breast 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 documented in this encounter [facility] SystemEvaluation note* Diagnosis Mixed hyperlipidemia documented in this encounter [facility] SystemHistory general Narrative - Reported* Type Description [...] left eye cataract Hospitalization History As above Sulmaq Other InstructionsNot on filedocumented in this encounter [facility] [employer] SystemInstructionsNot on filedocumented in this encounter [facility] [employer] SystemInstructionsNot on filedocumented in this encounter [facility] [employer] SystemInstructionsNot on filedocumented in this encounter [facility] SystemInstructionsNot on filedocumented in this encounter [facility] SystemInstructionsNot on filedocumented in this encounter [facility] SystemInstructionsNot on filedocumented in this encounter [facility] SystemInstructions* Attachments The following attachments cannot be sent through Care Everywhere. * Open-angle glaucoma ([place]vor[place]) documented in this encounterProMedica Health SystemInstructionsNot on file documented in this encounterProMedica Health SystemInstructionsNot on file documented in this encounterProProvidence Hospital SystemInstructions* Attachments The following attachments cannot be sent through Care Everywhere. * Postmeniscectomy Exercises Lying Down ([place]vor[place]) documented in this encounterProMedical Center Enterprise [facility] SystemReason for referral (narrative)No reason for referral information availableNationwide Children'S Hospital Work Phone: Advance Directives Advance Directive Response Recorded Date/ Time Advance Directives No September 05, 2017 8:32am Advance Directive Response Recorded Date/ Time Advance Directives No September 05, 2017 9:32am Chief Complaint and Reason for Visit Chief Complaint E10.42 Chief Complaint See order Chief Complaint N18.30 E10.22 N25.81 E87.5 D6.1 Chief Complaint [facility] [place] [facility] Amb Documentation Amb Documentation Amb Documentation Amb Documentation Amb Documentation Diabetes ED and DL will f/u with TKM per DC Chief Complaint [facility] Amb Documentation Amb Documentation Amb Documentation Amb Documentation Amb Documentation Diabetes ED and DL will f/u with TKM per DC Type 1 per DC see TKM Reason for Visit BMI 29.0-29.9,adult Dietary counseling and surveillance Hyperlipidemia Insulin long-term use Insulin pump titration 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 Chief Complaint [facility] Amb Documentation Amb Documentation Amb Documentation Amb Documentation Amb Documentation Diabetes ED and DL will f/u with TKM per DC Type 1 per DC see TKM anti inflammatory eating Reason for Visit BMI 29.0-29.9,adult Dietary counseling and surveillance Hyperlipidemia Insulin long-term use Insulin pump titration 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 Chief Complaint [facility] Amb Documentation Amb Documentation Amb Documentation Amb Documentation Amb Documentation Diabetes ED and DL will f/u with TKM per DC Type 1 per DC see TKM anti inflammatory eating e10.22 n18.31 Reason for Visit BMI 29.0-29.9,adult Dietary counseling and surveillance Hyperlipidemia Insulin long-term use Insulin pump titration 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 Chief Complaint [facility] Amb Documentation Amb Documentation Amb Documentation Amb [...] ki dney disease November 14, 2024 11:17am Chief Complaint Admit Date pump February 19, 2025 1:1 8pm Reason for Visit Admit Date Hyperlipidemia January 29, 2025 12:4 5pm Overweight (BMI 25.0-29.9) January 29 12:45pm Type 1 diabetes mellitus with chronic ki dney disease January 29, 2025 12:45pm BMI 27.0-27.9,adult February 19, 2025 1:1 8pm Dietary counseling and surveillance Mino 2024 1:18pm Hyperlipidemia February 19, 2025 1:1 8pm Insulin long-term use February 19, 2025 1 :18pm Insulin pump titration February 19, 2025 1:18pm Type 1 diabetes mellitus with chronic ki dney disease February 19, 2025 1:18pm Chief Complaint Admit Date pump February 19, [...] ki dney disease February 19, 2025 1:18pm Chief Complaint Admit Date 3 month May 01, 2025 10:32 am SECA Scan May 20, 2025 10:0 0am E10.22 N18.31 June 03, 2025 8:29a m Reason for Visit Admit Date Hyperlipidemia May 01, 2025 10:32 am Overweight (BMI 25.0-29.9) May 01 10:32am Type 1 diabetes mellitus with chronic ki dney disease May 01, 2025 10:32am Chief Complaint Admit Date 3 month May 01, 2025 10:32 am SECA Scan May 20, 2025 10:0 0am E10.22 N18.31 June 03, 2025 8:29a m 3 month-PUMP June 05, 2025 10:47 am Reason for Visit Admit Date Hyperlipidemia May 01, 2025 10:32 am Overweight (BMI 25.0-29.9) May 01 10:32am Type 1 diabetes mellitus with chronic ki dney disease May 01, 2025 10:32am BMI 27.0-27.9,adult June 05, 2025 10:47 am Dietary counseling and surveillance June 05, 2025 10:47am Hyperlipidemia June 05, 2025 10:47 am Insulin long-term use June 05, 2025 10: 47am Insulin pump titration June 05, 2025 10 :47am Type 1 diabetes mellitus with chronic ki dney disease June 05, 2025 10:47am Chief Complaint Admit Date 3 month May 01, 2025 10:32 am SECA Scan May 20, 2025 10:0 0am E10.22 N18.31 June 03, 2025 8:29a m 3 month-PUMP June 05, 2025 10:[address] WM f/u - seeing Robin before July 08, 2025 10:49am Reason for Visit Admit Date Hyperlipidemia May 01, 2025 10:32 am Overweight (BMI 25.0-29.9) May 01 10:32am Type 1 diabetes mellitus with chronic ki dney disease May 01, 2025 10:32am BMI 27.0-27.9,adult June 05, 2025 10:47 am Dietary counseling and surveillance June 05, 2025 10:47am Hyperlipidemia June 05, 2025 10:47 am Insulin long-term use June 05, 2025 10: 47am Insulin pump titration June 05, 2025 10 :47am Type 1 diabetes mellitus with chronic ki dney disease June 05, 2025 10:47am BMI 27.0-27.9,adult July 08, 2025 9: 43am Hyperlipidemia July 08, 2025 9: 43am Type 1 diabetes mellitus with chronic ki dney disease July 08, 2025 9:43am Assessments No Assessments Information Available Summary Purpose [...] CREATED AUTHOR AUTHOR'S ORGANIZ ATION 03/21/2023 [facility] DATE CREATED AUTHOR AUTHOR'S ORGANIZ ATION 01/14/2024 [facility] DATE CREATED AUTHOR AUTHOR'S ORGANIZ ATION 10/02/2024 [facility] EPIC DATE CREATED AUTHOR AUTHOR'S ORGANIZ ATION 06/21/2025 [facility] DATE CREATED AUTHOR AUTHOR'S ORGANIZ ATION 07/11/2025 [facility] Care Teams (unrecognized sec tion [...] Role Status Ashleigh Carlin DO Primary Care Provider, Attending Provi imtiaz Active Team Status: Inactive Member Role Status Ashleigh Carlin DO Primary Care Provider Active Buddy Jean MD Attending Provider Active Team Status: Inactive Member Role Status Ashleigh Carlin DO Primary Care Provider Active Sta rt: September 21, 2024 End: September 21, 2024 Buddy Jean MD Attending Provider Active Start : September 21, 2024 End: September 21, 2024 Team Status: Inactive Member Role Status Ashleigh Carlin DO Primary Care Provider Active Sta rt: September [...] October 09, 2024 End: October 09, 2024 Project Hire Relationship Specialty Start Date End Date Sherrill Carlin DO [address] [facility] [place] [address] PCP - General Internal Medicine 08/24/21 Project Hire Relationship Specialty Start Date End Date Sherrill Carlin DO [address] [facility] [place] [address] PCP - General Internal Medicine 08/24/21 Project Hire Relationship Specialty Start Date End Date Sherrill Carlin DO [address] [facility] [place] [address] PCP - General Internal Medicine 08/24/21 Project Hire Relationship Specialty Start Date End Date Sherrill Carlin DO [address] [facility] [place] [address] PCP - General Internal Medicine 08/24/21 Project Hire Relationship Specialty Start Date End Date Sherrill Carlin DO [address] [facility] [place] [address] PCP - General Internal Medicine 08/24/21 Project Hire Relationship Specialty Start Date End Date Sherrill Carlin DO [address] [facility] [place] [address] PCP - General Internal Medicine 08/24/21 Project Hire Relationship Specialty Start Date End Date Sherrill Carlin DO [address] [place] [address] PCP - General Internal Medicine 08/24/21 Project Hire Relationship Specialty Start Date End Date Sherrill Carlin DO [address] [place] [address] PCP - General Internal Medicine 08/24/21 Project Hire Relationship Specialty Start Date End Date Sherrill Carlin DO [address] [place] [address] PCP - General Internal Medicine 08/24/21 Team [...] January 29, 2025 End: January 29, 2025 Team Status: Inactive Member Role Status Dates Sherrill Carlin DO Primary Care Provider Active Sta rt: February 19, 2025 End: February 19, 2025 Rodger Avila APRN Attending Provider Active Start: February 19, 2025 End: February 19, 2025 Project Hire Relationship Specialty Start Date End Date Sherrill Carlin DO [address] [place] [address] PCP - General Internal Medicine 08/24/21 Project Hire Relationship Specialty Start Date End Date Sherrill Carlin DO [address] [place] [address] PCP - General Internal Medicine 08/24/21 Project Hire Relationship Specialty Start Date End Date Sherrill Carlin DO [address] [place] [address] PCP - General Internal Medicine 08/24/21 Project Hire Relationship Specialty Start Date End Date Sherrill Carlin DO [address] [place] [address] PCP - General Internal Medicine 08/24/21 Team Status: Inactive Member Role Status Dates Sherrill Cecillesheilamatt DO Primary Care Provider Active Sta rt: May 01, 2025 End: May 01, 2025 Apolinar Kelly MD Attending Provider Active Start: May 01, 2025 End: May 01, 2025 Team Status: Inactive Member Role Status Dates Sherrill CecilleDO sarah Primary Care Provider Active Sta rt: May 20, 2025 End: May 20, 2025 ANDREY Forman Attending Provider Active S tart: May 20, 2025 End: May 20, 2025 Team Status: Inactive Member Role Status Dates Sherrill Cecillesheilamatt DO Primary Care Provider Active Sta rt: June 03, 2025 End: June 03, 2025 Rodger Avila APRN Attending Provider Active Start: June 03, 2025 End: June 03, 2025 Team Status: Inactive Member Role Status Dates Sherrill Leematt DO Primary Care Provider Active Sta rt: June 05, 2025 End: June 05, 2025 Rodger Avila APRN Attending Provider Active Start: June 05, 2025 End: June 05, 2025 Team Status: Inactive Member Role Status Dates Sherrill Carlin DO Primary Care Provider Active Sta rt: July 08, 2025 End: July 08, 2025 Apolinar Kelly MD Attending Provider Active Start: July 08, 2025 End: July 08, 2025 Team Status: Active Member Role Status Dates Sherrill Carlin DO Primary Care Provider Active Sta rt: July 08, 2025 ANDREY Forman Attending Provider Active S tart: July 08, 2025 Team Status: Inactive Member Role Status Dates Sherrill Carlin DO Primary Care Provider Active Sta rt: July 08, 2025 End: July 08, 2025 ANDREY Forman Attending Provider Active S tart: July 08, 2025 End: July 08, 2025 Goals (unrecognized section and content) Goals [...] encounterGoals may be documented in an alternate sectionGoals may be documented in an alternate sectionNot on filedocumented as of this encounterNot on filedocumented as of this encounterNot on filedocumented as of this encounterNot on filedocumented as of this encounterNot on filedocumented as of this encounterGoals may be documented in an alternate sectionGoals may be documented in an alternate sectionGoals may be documented in an alternate sectionGoals may be documented in an alternate sectionGoals may be documented in an alternate sectionNot on filedocumented as of this encounterNot on filedocumented as of this encounter REASON FOR VISIT (unrecogniz ed section and content) Reason Comments Follow-up Suspicious Skin Lesion Reason Comments Back Pain Knee Pain Reason Comments Med Refill Reason Comments Diabetes Back Pain Reason Onset Date Comments Preventative Screening 01/30/2024 Reason Comments Glaucoma Reason Comments Eye Exam Reason Onset Date Comments Med Refill 10/29/2024 Reason Comments Annual Exam Right knee pain, Johnny f pain, Reason Onset Date Comments Med Refill 07/16/2025 FOR RECORDS PERTAINING TO PATIENTS WHO ARE [...] BE BASED ON THE PRIMARY CLINICAL RECORDS. [facility]. provides no warranty or guarantee of the accuracy or completeness of information in this document.
== END 2025-08-06 08:59 | disposition home or self-care (01) ==
LOC: WC 08:58
PROVIDERS: PCP Internal Medicine; Visit Provider Physician Assistant
DX: E11.621 Type 2 diabetes mellitus with foot ulcer (principal); L97.422 Non-pressure chronic ulcer of left heel and midfoot with fat layer exposed
CPT/HCPCS: G0463

== ENCOUNTER 2025-08-20 10:16 | Outpatient (OUT) | payer OTHER, SELFPAY ==
--- OUTSIDE RECORDS SUMMARY | 2025-08-20 10:19 | XMS_ITS | Clinical Summary ---
Author Organization [facility] Address [address] [place] [id number] Care Team Providers Care Cans Vacuum Tester Name Role Phone Unavailable Primary Care Provider [...] 2) 2018 Influenza Vaccine (#1) 2025 Insurance [facility] SUPERMED PPO
--- OUTSIDE RECORDS SUMMARY | 2025-08-20 10:19 | XMS_ITS | Encounter Summary ---
Author Organization [facility] Address [id number] [address] [place] [address] Care Team Providers Care Special Delivery Carrier Name Role Phone Newton Verdugo DO Primary Care Provider [phone] Reason for Visit * Reason Comments Med Refill Encounter Details Date Type Department Care Team (Late st Contact Info) Description 02/16/2023 Refill [facility] - Family Medicine [address] [place] [address] Newton Verdugo DO [address] [place] [address] Diabetic peripheral neuropathy ([facility]) Social History Tobacco Use Types Packs/Day [...] Retina, A Department of [facility] [address] [place] [address] Nick Bailey MD [address] [place] [address] 02/24/2026 3:00 PM EDT Ophthalmology Imaging [facility] [address] [place] [address] 02/24/2026 3:10 PM EDT Office Visit [facility] [address] [place] [address] Newton Thakur MD [address] [place] [address] documented as of this encounter Visit Diagnoses Diagnosis Diabetic peripheral neuropathy ([facility]) Type II or unspecified type diabetes mellitus with neurological manifestations, not stated as uncontrolled documented in this encounter Care Teams Special Delivery Carrier Relationship Specialty Start Date End Date Newton Verdugo DO [address] [place] [address] PCP - General Internal Medicine 08/24/21 documented as of this encounter
--- OUTSIDE RECORDS SUMMARY | 2025-08-20 10:19 | XMS_ITS | Patient Health Record ---
Author Organization [facility] [place] Address [address] [place] [address] Care Team Providers Care Director Of Informatics Name Role Phone Newton Verdugo DO Primary Care Provider Unavailabl e Reason For Referral No Information Problems Problem Type SNOMED Code ICD Code Onset Dates Problem Status W/U Status Risk Notes Problem Foot ulcer due to type 1 diabetes mellitus (5914787196293 09) Type 1 diabetes mellitus with foot ulcer (E10.621) Active confirmed Problem Foot ulcer due to type 2 diabetes mellitus (4323198814486 ) Type 2 diabetes mellitus with foot ulcer (E11.621) Active confirmed Problem Chronic ulcer of foot (565760925) 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
--- OUTSIDE RECORDS SUMMARY | 2025-08-20 10:19 | XMS_ITS | Encounter Summary ---
Author Organization [facility] [employer] Address [id number] [address] [place] [address] Care Team Providers Care Steeping Press Tender Name Role Phone Newton Verdugo DO Primary Care Provider [phone] Encounter Details Date Type Department Care Team (Late Contact Info) Description 07/14/2023 Orders Only [facility] - Family Medicine [address] [place] [address] External, Scanning Provider Social History Tobacco Use [...] Office Visit [facility], A Department of [facility] [address] [facility] [address] [place] [address] Nick Bailey MD [address] [place] [address] 02/24/2026 3:00 PM EDT Ophthalmology Imaging [facility] [address] [place] [address] 02/24/2026 3:10 PM EDT Office Visit [facility] [address] [place] [address] Newton Thakur MD [address] [place], [place] [address] [phone] documented as of this encounter Procedures Procedure [...] documented as of this encounter Care Teams Steeping Press Tender Relationship Specialty Start Date End Date Nweton Verdugo DO [address] [place] [address] PCP - General Internal Medicine 08/24/21 documented as of this encounter
--- OUTSIDE RECORDS SUMMARY | 2025-08-20 10:19 | XMS_ITS | Encounter Summary ---
Author Organization [employer] Address [id number]-[id number] [address] [place] [address] Care Team Providers Care Master Mechanic Name Role Phone Newton Verdugo Primary Care Provider Reason for Visit * Reason Onset Date Comments Med Refill 05/24/2024 Encounter Details Date Type Department Care Team (Late st Contact Info) Description 05/24/2024 Refill [facility] - Family Medicine [address] [place] [address] Sena Gregg CMA Diabetic peripheral neuropathy ([facility]) Social History Tobacco Use Types Packs/Day [...] Office Visit [facility], A Department of [facility] [address] [place] [address] Nick Bailey MD [address] [place] [address] 02/24/2026 3:00 PM EDT Ophthalmology Imaging [facility] [address] [place] [address] 02/24/2026 3:10 PM EDT Office Visit [facility] [address] [place] [address] Newton Thakur MD [address] [place], [place] [phone] documented as of this encounter Visit Diagnoses Diagnosis Diabetic peripheral neuropathy ([facility]) Type II or unspecified type diabetes mellitus with neurological manifestations, not stated as uncontrolled documented in this encounter Additional Health Concerns Assessment Noted Time PHQ-9 Depression Total Score: 0 01/12/20 24 9:53 AM EST documented as of this encounter Care Teams Master Mechanic Relationship Specialty Start Date End Date Newton Verdugo DO [address] [place] [address] PCP - General Internal Medicine 08/24/21 documented as of this encounter
--- OUTSIDE RECORDS SUMMARY | 2025-08-20 10:19 | XMS_ITS | Clinical Summary ---
Author Organization [facility] Address [address] [place] [address] Care Team Providers Care Circuit Judge Name Role Phone Unavailable Primary Care Provider [...] 3 Active ergocalciferol (Vitamin D-2) 1.25 MG (27889 UT) capsule Take 50,000 Units by mouth. [...] Dermatology [address] [place] [address] MarieShelby leija, FOUNDRY EQUIPMENT MECHANIC-LEARNING AND DEVELOPMENT ASSOCIATE [address] [place] [address] Health Maintenance Due Date Last Done Comments CT Colonography 1968 Colonoscopy 1968 FIT 1968 FOBT 1968 Sigmoidoscopy 1968 Pap Smear 1989 Cervical Cancer Screening 1998 HPV/Cotest 1998 Mammogram 2008 Influenza Vaccine (#1) 2025 , 10/04/2019, 10/24/2018, Additional history exists Colorectal Cancer Screening 06/07/2027 FIT-DNA 06/07/2027 06/07/2024, 12/08/2018 Insurance [employer]
--- OUTSIDE RECORDS SUMMARY | 2025-08-20 10:19 | XMS_ITS | Encounter Summary ---
Author Organization [facility] Address [address] [place] [address] Care Team Providers Care Supervisor Machine Setter Name Role Phone Unavailable Primary Care Provider Unavailabl e Encounter Details Date Type Department Care Team (Late st Contact Info) Description 09/16/2023 Abstract [facility] [address] [facility] [address] [facility] [address] [place] [address] Shelby Black APRN-TUBE AND ROD STRAIGHTENER [address] [facility] [address] [facility] [address] [place] [address] Social History Tobacco Use Types Packs/Day Years [...] Office Visit [facility] [address] [facility] [address] [place] [address] Shelby Black APRN-TUBE AND ROD STRAIGHTENER [address] [place] [address] documented as of this encounter Visit Diagnoses Not on filedocumented in this encounter
--- OUTSIDE RECORDS SUMMARY | 2025-08-20 10:19 | XMS_ITS | Encounter Summary ---
Author Organization [facility] Address [facility] [place] [place]-[id number] [address] [place] [address] Care Team Providers Care Pricing Coordinator Name Role Phone Newton Verdugo Primary Care Provider [phone] Encounter Details Date Type Department Care Team (Late Contact Info) Description 03/21/2023 Orders Only [facility] - Family Medicine [address] [place] [address] Emeli Gonsalves CMA Spinal stenosis of lumbar [...] Office Visit [facility], [facility] Department of [facility] [address] [place] [address] Nick Bailey MD [address] [place] [address] 02/24/2026 3:00 PM EDT Ophthalmology Imaging [facility] [address] [place] [address]/24/2026 3:10 PM EDT Office Visit [facility] [address] [place] [address] Newton Thakur MD [address] [place] [address] (Work) documented as of this encounter Procedures [...] documented as of this encounter Care Teams Pricing Coordinator Relationship Specialty Start Date End Date Newton Verdugo DO [facility] [address] [place] [phone] PCP - General Internal Medicine 08/24/21 documented as of this encounter
--- OUTSIDE RECORDS SUMMARY | 2025-08-20 10:19 | XMS_ITS | Clinical Summary ---
Author Organization [employer] s [employer] Address [facility] [place]-[id number] [address] [place] [address] Care Team Providers Care Lead Oracle Developer Name Role Phone Newton Verdugo Primary Care Provider [phone] Allergies Active Allergy Reactions Criticality Noted Date [...] PUMP 90 mL 3 09/30/20 23 Active idicm-ussll-6-dha- epa-lipids (KRILL OIL) 679-06-70-50 mg capsule Take by mouth. Acti ve [...] evening. 90 tablet 1 07/16/20 25 Active Active Problems Problem Noted Date Diagnosed Date Neuropathy 11/03/2022 Stage 3 chronic kidney disease 08/20/2022 Migraine 08/20/2022 Hyperlipidemia 08/20/2022 Glaucoma 08/20/2022 Gastroesophageal reflux disease 08/20/2022 Diabetic retinopathy 08/20/2022 Atopic dermatitis 08/20/2022 Allergic rhinitis 08/20/2022 Chronic hyperkalemia 03/15/2022 Type 1 diabetes 09/28/2013 Encounters Date Type Department Care Team Description 07/16/2025 Refill [facility] - Family Medicine [address] [place] [address] Newton Verdugo, Mixed hyperlipidemia 07/09/2025 3:15 PM EDT Office Visit [facility] - [facility] [address] [place] [address] Newton Verdugo, Abnormal wellness exam (Primary Dx); Mixed hyperlipidemia; At risk for coronary artery disease; Encounter for screening mammogram for malignant neoplasm of breast; 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 07/09/2025 Travel from Last 3 Months Immunizations Immunization Administration Dates Next Due Influenza (IM) Preservative Free 11/10/2016,120 11/2014 Influenza, Im Trivalent Preservative 08/07/2014 Influenza, Injectable, [...] Office Visit [facility], A Department of [facility] [address] [facility] [address] [place] [address] Nick Bailey MD [address] [place] [address] 02/24/2026 3:00 PM EDT Ophthalmology Imaging [facility] [address] [place] [address] 02/24/2026 3:10 PM EDT Office Visit [facility] [address] [place] [address] Newton Thakur MD [address] [place], [place] [address] [phone] Health Maintenance Due Date Last Done Comments Adult BMI Follow Up Plan 1986 Pap Smear 1989 Mammogram 2008 Diabetic Foot Exam 03/03/2024 03/03/2023 COVID-19 Vaccine (2024-2 6 season) 2025 10/12/2023, 07/14/2022, 11/09/2021, Additional history exists Influenza [...] on file Insurance [employer] Care Teams Lead Oracle Developer Relationship Specialty Start Date End Date Newton Verdugo DO [address] [place] [address] PCP - General Internal Medicine 08/24/21
--- OUTSIDE RECORDS SUMMARY | 2025-08-20 10:19 | XMS_ITS | Encounter Summary ---
Author Organization [facility] [employer] s tem Address [facility] [place]-[id number] [address] [place] [address] Care Team Providers Care Photo Manager Name Role Phone Newton Verdugo DO Primary Care Provider [phone] Encounter Details Date Type Department Care Team (Late st Contact Info) Description 01/12/2024 Orders Only [facility] - Family Medicine [address] [place] [address] Newton Verdugo DO [address] [place] [address] Social History Tobacco Use Types Packs/Day Years [...] Office Visit [facility], A Department of [facility] [address] [place] [address] Nick Bailey MD [address] [place] [address] 02/24/2026 3:00 PM EDT Ophthalmology Imaging [facility] [address] [place] [address] 02/24/2026 3:10 PM EDT Office Visit [facility] [address] [place] [phone] Newton Thakur MD [address] [place], [place] [address] [phone] documented as of this encounter Visit Diagnoses Not on filedocumented in this encounter Additional Health Concerns Assessment Noted Time PHQ-9 Depression Total Score: 0 01/12/20 24 9:53 AM EST documented as of this encounter Care Teams Photo Manager Relationship Specialty Start Date End Date Newton Verdugo DO [address] [place] [address] PCP - General Internal Medicine 08/24/21 documented as of this encounter
--- OUTSIDE RECORDS SUMMARY | 2025-08-20 10:19 | XMS_ITS | Clinical Summary ---
Author Organization [facility] Address [address] [facility] [address] [place] [address] Care Team Providers Care Hvac Sheet Metal Installer Helper Name Role Phone Newton Verdugo DO Primary Care Provider [phone] Allergies Active Allergy Reactions Criticality Noted Date [...] on file Insurance [employer] Care Teams Hvac Sheet Metal Installer Helper Relationship Specialty Start Date End Date Newton Verdugo DO PCP - General 09/28/13
--- OUTSIDE RECORDS SUMMARY | 2025-08-20 10:19 | XMS_ITS | Encounter Summary ---
Author Organization [employer] s tem Address [facility]-[id number] [address] [place] [address] Care Team Providers Care Field Manager Name Role Phone Newton Verdugo Primary Care Provider [phone] Encounter Details Date Type Department Care Team (Late st Contact Info) Description 01/09/2025 Telephone [facility] [address] [place] [address] Anthony Martinez CMA Social History Tobacco Use [...] pt to verify a extended supply Company/ [employer]? documented in this encounter Plan of Treatment Upcoming Encounters Date Type Department Care Team (Late st Contact Info) Description 09/16/2025 8:00 AM EDT Office Visit [facility] Department of [facility] [address] [place] [address] Nick Bailey MD [address] [place] [address] 02/24/2026 3:00 PM EDT Ophthalmology Imaging [facility] [address] [place] [address] 02/24/2026 3:10 PM EDT Office Visit [facility] [address] [place] [address] Newton Thakur MD [address] [place] [address] documented as of this encounter Visit Diagnoses Not on filedocumented in this encounter Additional Health Concerns Assessment Noted Time PHQ-9 Depression Total Score: 0 01/12/20 24 9:53 AM EST documented as of this encounter Care Teams Field Manager Relationship Specialty Start Date End Date Newton Verdugo DO [address] [place] [address] PCP - General Internal Medicine 08/24/21 documented as of this encounter
--- OUTSIDE RECORDS SUMMARY | 2025-08-20 10:19 | XMS_ITS | Encounter Summary ---
Author Organization [facility] [employer] s tem Address [facility] [place]-[id number] [address] [place] [address] Care Team Providers Care Customer Service Cashier Name Role Phone Newton Verdugo DO Primary Care Provider [phone] Encounter Details Date Type Department Care Team (Late st Contact Info) Description 03/03/2023 Orders Only [facility] - Family Medicine [address] [place] [address] Newton Verdugo DO [address] [place] [address] Chronic hyperkalemia (Primary Dx) Social History Tobacco [...] Office Visit [facility], A Department of [facility] [address] [place] [address] Nick Bailey MD [address] [place] [address] 02/24/2026 3:00 PM EDT Ophthalmology Imaging [facility] [address] [place] [address] [phone] 02/24/2026 3:10 PM EDT Office Visit [facility] [address] [place] [address] Newton Thakur MD [address] [place], [place] [address] documented as of this encounter Visit Diagnoses Diagnosis Chronic hyperkalemia- Primary Hyperpotassemia documented in this encounter Additional Health Concerns Assessment Noted Time PHQ-9 Depression Total Score: 0 03/03/20 23 8:51 AM EDT documented as of this encounter Care Teams Customer Service Cashier Relationship Specialty Start Date End Date Newton Verdugo DO [address] [place] [address] PCP - General Internal Medicine 08/24/21 documented as of this encounter
--- OUTSIDE RECORDS SUMMARY | 2025-08-20 10:19 | XMS_ITS | Encounter Summary ---
Author Organization [facility] [employer] s tem Address [facility] [place] [place]-[id number] [address] [place] [address] Care Team Providers Care Soldering Machine Operator Name Role Phone Newton Verdugo DO Primary Care Provider [phone] Encounter Details Date Type Department Care Team (Late Contact Info) Description 03/14/2023 Orders Only [facility] - Family Medicine [address] [place] [address] Newton Verdugo DO [address] [place] [address] Social History Tobacco Use Types Packs/Day Years [...] Office Visit [facility], A Department of [facility] [address] [place] [address] Nick Bailey MD [address] [place] [address] 02/24/2026 3:00 PM EDT Ophthalmology Imaging [facility] [address] [place] [phone] 02/24/2026 3:10 PM EDT Office Visit [facility] [address] [place] [address] Newton Thakur MD [address] [place], [place] [address] documented as of this encounter Visit Diagnoses Not on filedocumented in this encounter Additional Health Concerns Assessment Noted Time PHQ-9 Depression Total Score: 0 03/03/20 23 8:51 AM EDT documented as of this encounter Care Teams Soldering Machine Operator Relationship Specialty Start Date End Date Newton Verdugo DO [address] [place] [address] PCP - General Internal Medicine 08/24/21 documented as of this encounter
--- OUTSIDE RECORDS SUMMARY | 2025-08-20 10:19 | XMS_ITS | Encounter Summary ---
Author Organization [facility] [employer] Address [facility] [place]-[id number] [address] [place] [address] Care Team Providers Care Legal Entity Controller Name Role Phone Newton Verdugo DO Primary Care Provider [phone] Encounter Details Date Type Department Care Team (Late Contact Info) Description 06/06/2023 Orders Only [facility] - Family Medicine [address] [place] [address] Newton Verdugo DO [address] [place] [address] Social History Tobacco Use Types Packs/Day Years [...] Office Visit [facility], A Department of [facility] [address] [facility] [address] [place] [address] Nick Bailey MD [address] [place] [address] 02/24/2026 3:00 PM EDT Ophthalmology Imaging [facility] [address] [place] [address] 02/24/2026 3:10 PM EDT Office Visit [facility] [address] [place] [address] Newton Thakur MD [address] [place] [address] documented as of this encounter Visit Diagnoses Not on filedocumented in this encounter Additional Health Concerns Assessment Noted Time PHQ-9 Depression Total Score: 0 03/03/20 23 8:51 AM EDT documented as of this encounter Care Teams Legal Entity Controller Relationship Specialty Start Date End Date Newton Verdugo DO [address] [place] [address] PCP - General Internal Medicine 08/24/21 documented as of this encounter
--- OUTSIDE RECORDS SUMMARY | 2025-08-20 10:19 | XMS_ITS | Clinical Summary ---
Author Organization [facility] Address [address] [place] [address] Phone Care Team Providers Care Camp Housekeeper Name Role Phone Unavailable Primary Care Provider [...]
--- OUTSIDE RECORDS SUMMARY | 2025-08-20 10:19 | XMS_ITS | Encounter Summary ---
Author Organization [facility] Address [facility]-[id number] [address] [place] [address] Care Team Providers Care Medical Researcher Name Role Phone Newton Verdugo DO Primary Care Provider [phone] Encounter Details Date Type Department Care Team (Late st Contact Info) Description 12/13/2023 Orders Only [facility] - Family Medicine [address] [place] [address] Newton Verdugo DO [address] [place] [address] Social History Tobacco Use Types Packs/Day Years [...] Office Visit [facility], A Department of [facility] [address] [place] [address] Nick Bailey MD [address] [place] [address] 02/24/2026 3:00 PM EDT Ophthalmology Imaging [facility] [address] [place] [address] 02/24/2026 3:10 PM EDT Office Visit [facility] [address] [place] [phone] Newton Thakur MD [address] [place], [place] [address] [phone] documented as of this encounter Visit Diagnoses Not on filedocumented in this encounter Additional Health Concerns Assessment Noted Time PHQ-9 Depression Total Score: 0 08/23/20 23 8:51 AM EDT documented as of this encounter Care Teams Medical Researcher Relationship Specialty Start Date End Date Newton Verdugo DO [address] [place] [address] PCP - General Internal Medicine 08/24/21 documented as of this encounter
--- OUTSIDE RECORDS SUMMARY | 2025-08-20 10:19 | XMS_ITS | Encounter Summary ---
Author Organization [facility] [employer] s tem Address [facility] [id number] [address] [place] [address] Care Team Providers Care Police Lieutenant Patrol Name Role Phone Newton Verdugo DO Primary Care Provider Encounter Details Date Type Department Care Team (Late Contact Info) Description 12/06/2022 Orders Only [facility] - Family Medicine [address] [place] [address] Newton Verdugo DO [address] [place] [address] Social History Tobacco Use Types Packs/Day Years [...] Office Visit [facility], A Department of [facility] [address] [facility] [address] [place] [address] Nick Bailey MD [address], [facility] 1 [place] [address] 02/24/2026 3:00 PM EDT Ophthalmology Imaging [facility] [address] [place] [address] 02/24/2026 3:10 PM EDT Office Visit [facility] [address] [place] [address] [phone] Newton Thakur MD [address] 1 [place] [address] documented as of this encounter Visit Diagnoses Not on filedocumented in this encounter Care Teams Police Lieutenant Patrol Relationship Specialty Start Date End Date Newton Verdugo DO [address] [place] [address] PCP - General Internal Medicine 08/24/21 documented as of this encounter
--- OUTSIDE RECORDS SUMMARY | 2025-08-20 10:19 | XMS_ITS | Encounter Summary ---
Author Organization [facility] [employer] s tem Address [facility] [id number] [address] [place] [address] Care Team Providers Care Food Consultant Name Role Phone Newton Verdugo DO Primary Care Provider [phone] Encounter Details Date Type Department Care Team (Late st Contact Info) Description 09/21/2023 Orders Only [facility] - Family Medicine [address] [place] [address] Newton Verdugo DO [address] [place] [address] Social History Tobacco Use Types Packs/Day Years [...] Visit [facility], A Department of [facility] [address] [place] [address] Nick Bailey MD [address] [place] [address] 02/24/2026 3:00 PM EDT Ophthalmology Imaging [facility] [address] [place] [address] 02/24/2026 3:10 PM EDT Office Visit [facility] [address] [place] [address] [phone] Newton Thakur MD [address] [place], [place] [address] [phone] documented as of this encounter Visit Diagnoses Not on filedocumented in this encounter Additional Health Concerns Assessment Noted Time PHQ-9 Depression Total Score: 0 08/23/20 23 8:51 AM EDT documented as of this encounter Care Teams Food Consultant Relationship Specialty Start Date End Date Newton Verdugo DO [address] [place] [address] PCP - General Internal Medicine 08/24/21 documented as of this encounter
--- OUTSIDE RECORDS SUMMARY | 2025-08-20 10:19 | XMS_ITS | Encounter Summary ---
Author Organization [facility] [employer] s tem Address [facility] [id number] [address] [place] [address] Care Team Providers Care Senior Major Gifts Officer Name Role Phone Newton Verdugo DO Primary Care Provider [phone] Encounter Details Date Type Department Care Team (Late st Contact Info) Description 03/22/2023 Orders Only [facility] - Family Medicine [address] [place] [address] Newton Verdugo DO [address] [place] [address] Spondylosis of lumbar region without myelopathy or [...] Office Visit [facility], A Department of [facility] [address] [place] [address] Nick Bailey MD [address] [place], [place] [address] [phone] 02/24/2026 3:00 PM EDT Ophthalmology Imaging [facility] [address] [place] [address] 02/24/2026 3:10 PM EDT Office Visit [facility] [address] [place] [address] Newton Thakur MD [address] [place], [place] [address] [phone] documented as of this encounter Visit Diagnoses Diagnosis 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
--- OUTSIDE RECORDS SUMMARY | 2025-08-20 10:19 | XMS_ITS | Encounter Summary ---
Author Organization [facility] Sys tem Address [facility] [place][id number] [address] [place] [address] Care Team Providers Care Rental Clerk Name Role Phone Newton Verdugo DO Primary Care Provider [phone] Reason for Visit * Reason Comments Med Refill Encounter Details Date Type Department Care Team (Late st Contact Info) Description 09/19/2024 Refill [facility] - Family Medicine [address] [place] [address] Newton Verdugo DO [address] [place] [address] Type 1 diabetes mellitus with nephropathy ([facility]-H[facility]) Social History Tobacco Use Types Packs/Day Years [...] Office Visit [facility], A Department of [facility] [address] [place] [address] Nick Bailey MD [address], [address] [place] [address] 02/24/2026 3:00 PM EDT Ophthalmology Imaging [facility] [address] [place] [address] 02/24/2026 3:10 PM EDT Office Visit [facility] [address] [place] [address] Newton Thakur MD [address] [place] [address] documented as of this encounter Visit Diagnoses Diagnosis Type 1 diabetes mellitus with nephropathy (CMS-HCC) documented in this encounter Additional Health Concerns Assessment Noted Time PHQ-9 Depression Total Score: 0 01/12/20 24 9:53 AM EST documented as of this encounter Care Teams Rental Clerk Relationship Specialty Start Date End Date Newton Verdugo DO [address] [place] [address] PCP - General Internal Medicine 08/24/21 documented as of this encounter
--- OUTSIDE RECORDS SUMMARY | 2025-08-20 10:19 | XMS_ITS | Encounter Summary ---
Author Organization [facility] Flex[facility] s tem Address [facility] [id number] [address] [place] [address] Care Team Providers Care Accountant Auditor Name Role Phone Newton Verdugo DO Primary Care Provider [phone] Encounter Details Date Type Department Care Team (Late st Contact Info) Description 08/23/2023 Orders Only [facility] - Family Medicine [address] [place] [address] Newton Verdugo DO [address] [place] [address] Mixed hyperlipidemia (Primary Dx) Social History Tobacco [...] Office Visit [facility], A Department of [facility] [address] [place] [address] Nick Bailey MD [address], [address] [place] [address] 02/24/2026 3:00 PM EDT Ophthalmology Imaging [facility] [address] [place] [address] 02/24/2026 3:10 PM EDT Office Visit [facility] [address] [place] [address] Newton Thakur MD [address] [place], [place] [address] [phone] documented as of this encounter Visit Diagnoses Diagnosis Mixed hyperlipidemia- Primary documented in this encounter Additional Health Concerns Assessment Noted Time PHQ-9 Depression Total Score: 0 08/23/20 23 8:51 AM EDT documented as of this encounter Care Teams Accountant Auditor Relationship Specialty Start Date End Date Newton Verdugo DO [address] [place] [address] PCP - General Internal Medicine 08/24/21 documented as of this encounter
--- OUTSIDE RECORDS SUMMARY | 2025-08-20 10:19 | XMS_ITS | Encounter Summary ---
Author Organization [facility] Address [address] [place] [address] Care Team Providers Care Administrative Analyst Name Role Phone Unavailable Primary Care Provider Unavailabl e Reason for Visit * Reason Comments Med Refill Encounter Details Date Type Department Care Team (Late st Contact Info) Description 06/06/2023 [facility] [address] [facility] [address] [place] [address] Shelby Black, BED CONTROL SPECIALIST-PRESCHOOL ASSISTANT [address] [place] [address] Seborrheic dermatitis Social History Tobacco [...] Office Visit [facility] [address] [facility] [address] [place] [address] Shelby Black, BED CONTROL SPECIALIST-PRESCHOOL ASSISTANT [address] [place] [address] documented as of this encounter Visit Diagnoses Diagnosis Seborrheic dermatitis Unspecified seborrheic dermatitis documented in this encounter
--- OUTSIDE RECORDS SUMMARY | 2025-08-20 10:20 | XMS_ITS | Encounter Summary ---
Author Organization [facility] Address [facility] [id number] [address] [place] [address] Care Team Providers Care Production Painter Name Role Phone Newton Verdugo DO Primary Care Provider [phone] Reason for Visit * Reason Comments Med Refill Encounter Details Date Type Department Care Team (Late st Contact Info) Description 08/20/2022 Refill [facility] - Family Medicine [address] [place] [address] Newton Verdugo DO [address] [place] [address] Diabetic peripheral neuropathy ([facility]-HCC) (Primary Dx); Type 1 diabetes mellitus with nephropathy ([facility]) Social History Tobacco Use Types Packs/Day [...] Visit [facility], A Department of [facility] [address] [phone] Nick Bailey MD [address], [address] [place] [address] 02/24/2026 3:00 PM EDT Ophthalmology Imaging [facility] [address] [place] [address] [phone] 02/24/2026 3:10 PM EDT Office Visit [facility] [address] [place] [address] Newton Thakur MD [address] [place] [address] documented as of this encounter Visit Diagnoses Diagnosis Diabetic peripheral neuropathy (CMS-HCC)- Primary Type II or unspecified type diabetes mellitus with neurological manifestations, not stated as uncontrolled Type 1 diabetes mellitus with nephropathy (CMS-HCC) documented in this encounter Care Teams Production Painter Relationship Specialty Start Date End Date Newton Verdugo DO [address] [place] [address] PCP - General Internal Medicine 08/24/21 documented as of this encounter
--- OUTSIDE RECORDS SUMMARY | 2025-08-20 10:20 | XMS_ITS | Encounter Summary ---
Author Organization [facility] Address [address] [place] [address] Care Team Providers Care Boiler Coverer Helper Name Role Phone Unavailable Primary Care Provider Unavailabl e Reason for Visit * Reason Comments Med Refill Encounter Details Date Type Department Care Team (Late st Contact Info) Description 10/12/2024 [facility] [address] [facility] [address] [place] [address] Shelby Black, TONY-FOREST ECONOMICS PROFESSOR [address] [facility] [address] [place] [address] Other atopic dermatitis Social History Tobacco Use [...] Dermatology [address] [place] [address] Shelby Black, TONY-FOREST ECONOMICS PROFESSOR [address] [place] [address] documented as of this encounter Visit Diagnoses Diagnosis Other atopic dermatitis documented in this encounter
--- OUTSIDE RECORDS SUMMARY | 2025-08-20 10:20 | XMS_ITS | Encounter Summary ---
Author Organization [facility] s tem Address [facility]-[id number] [address] [place] [address] Care Team Providers Care Oceanographic Meteorologist Name Role Phone Newton Verdugo DO Primary Care Provider [phone] Encounter Details Date Type Department Care Team (Late st Contact Info) Description 02/28/2024 Orders Only [facility] - Family Medicine [address] [place] [address] Newton Verdugo DO [address] [place] [address] Social History Tobacco Use Types Packs/Day Years [...] Office Visit [facility], A Department of [facility] [address] [place] [address] Nick Bailey MD [address] [place] [address] 02/24/2026 3:00 PM EDT Ophthalmology Imaging [facility] [address] [place] [address] 02/24/2026 3:10 PM EDT Office Visit [facility] [address] [place] [address] [phone] Newton Thakur MD [address] [place], [place] [address] [phone] documented as of this encounter Visit Diagnoses Not on filedocumented in this encounter Additional Health Concerns Assessment Noted Time PHQ-9 Depression Total Score: 0 01/12/20 24 9:53 AM EST documented as of this encounter Care Teams Oceanographic Meteorologist Relationship Specialty Start Date End Date Newton Verdugo DO [address] [place] [address] PCP - General Internal Medicine 08/24/21 documented as of this encounter
--- OUTSIDE RECORDS SUMMARY | 2025-08-20 10:20 | XMS_ITS | Encounter Summary ---
Author Organization [employer] s tem Address [facility] [place]-[id number] [address] [place] [address] Care Team Providers Care Fresh Work Inspector Name Role Phone Newton Verdugo Primary Care Provider [phone] Encounter Details Date Type Department Care Team (Late st Contact Info) Description 10/18/2023 [facility] [address] [place] [address] Peggy Sheridan CMA Social History Tobacco Use [...] Description 09/16/2025 8:00 AM EDT Office Visit [facility], A Department of [facility] [address] [place] [address] Nick Bailey MD [address], [address] [place] [address] 02/24/2026 3:00 PM EDT Ophthalmology Imaging [facility] [address] [place] [address]/24/2026 3:10 PM EDT Office Visit [facility] [address] [place] [address] Newton Thakur MD [address] [place] [address] documented as of this encounter Visit Diagnoses Not on filedocumented in this encounter Additional Health Concerns Assessment Noted Time PHQ-9 Depression Total Score: 0 08/23/20 23 8:51 AM EDT documented as of this encounter Care Teams Fresh Work Inspector Relationship Specialty Start Date End Date Newton Verdugo DO [facility] [place] [address] PCP - General Internal Medicine 08/24/21 documented as of this encounter
--- OUTSIDE RECORDS SUMMARY | 2025-08-20 10:20 | XMS_ITS | Encounter Summary ---
Author Organization [facility] [employer] s tem Address [facility] [place]-[id number] [address] [place] [address] Care Team Providers Care Label Stitcher Name Role Phone Newton Verdugo DO Primary Care Provider [phone] Encounter Details Date Type Department Care Team (Late Contact Info) Description 08/20/2022 Orders Only [facility] - Family Medicine [address] [place] [address] Newton Verdugo DO [address] [place] [address] Social History Tobacco Use Types Packs/Day Years [...] Office Visit [facility], A Department of [facility] [address] [facility] [address] [place] [address] Nick Bailey MD [address], [facility] 1 [place] [address] 02/24/2026 3:00 PM EDT Ophthalmology Imaging [facility] [address] [place] [address] 02/24/2026 3:10 PM EDT Office Visit [facility] [address] [place] [address] [phone] Newton Thakur MD [address] [place] [address] documented as of this encounter Visit Diagnoses Not on filedocumented in this encounter Care Teams Label Stitcher Relationship Specialty Start Date End Date Newton Verdugo DO [address] [place] [address] PCP - General Internal Medicine 08/24/21 documented as of this encounter
--- OUTSIDE RECORDS SUMMARY | 2025-08-20 10:20 | XMS_ITS | Encounter Summary ---
Author Organization [facility] [employer] Address [facility] [place]-[id number] [address] [place] [address] Care Team Providers Care Network Internship Name Role Phone Newton Verdugo DO Primary Care Provider Encounter Details Date Type Department Care Team (Late st Contact Info) Description 10/18/2023 Orders Only [facility] - Family Medicine [address] [place] [address] Newton Verdugo DO [address] [place] [address] Special screening for malignant neoplasm of colon [...] [facility], A Department of [facility] [address] [place] [address] Nick Bailey MD [address], [address] [place] [address] 02/24/2026 3:00 PM EDT [facility] [address] [place] [address] [phone] 02/24/2026 3:10 PM EDT [facility] [address] [place] [address] Newton Thakur MD [address] [place] [address] documented as of this encounter Visit Diagnoses Diagnosis Special screening for malignant neoplasm of colon- Primary Special screening for malignant neoplasms, colon documented in this encounter Additional Health Concerns Assessment Noted Time PHQ-9 Depression Total Score: 0 08/23/20 23 8:51 AM EDT documented as of this encounter Care Teams Network Internship Relationship Specialty Start Date End Date Newton Verdugo DO [address] [place] [address] PCP - General Internal Medicine 08/24/21 documented as of this encounter
--- OUTSIDE RECORDS SUMMARY | 2025-08-20 10:20 | XMS_ITS | Encounter Summary ---
Author Organization [facility] [employer] s tem Address [facility] [place]-[id number] [address] [place] [address] Care Team Providers Care Raw Stock Machine Loader Name Role Phone Newton Verdugo DO Primary Care Provider [phone] Reason for Visit * Reason Comments Med Refill Encounter Details Date Type Department Care Team (Late st Contact Info) Description 10/07/2022 Refill [facility] - Family Medicine [address] [place] [address] Lisa Winter, TONY-FORKLIFT MECHANIC [address] [place] [address] Social History Tobacco Use Types Packs/Day Years [...] [facility], A Department of [facility] [address] [place] [address] Nick Bailey MD [address], [facility] 1 [place] [address] 02/24/2026 3:00 PM EDT Ophthalmology Imaging [facility] [address] [place] [address] 02/24/2026 3:10 PM EDT Office Visit [facility] [address] [place] [address] Newton Thakur MD [address] [place] [address] documented as of this encounter Visit Diagnoses Not on filedocumented in this encounter Care Teams Raw Stock Machine Loader Relationship Specialty Start Date End Date Newton Verdugo DO [address] [place] [address] PCP - General Internal Medicine 08/24/21 documented as of this encounter
--- OUTSIDE RECORDS SUMMARY | 2025-08-20 10:20 | XMS_ITS | Clinical Summary ---
Author Organization [facility] Address [address] [place] [address] Care Team Providers Care Apartment Hotel Manager Name Role Phone Unavailable Primary Care Provider Unavailabl e Source Comments The following information is NOT included in Care Everywhere downloads:Psychiatric notes, ECG results, Cardiac Rehab notes, Pulmonary Function notes, data from [employer] (includes but not limited toPregnancy data,audiograms, eye exams, pre-surgical evaluation notes, well-child exam data).[facility] Social History Tobacco Use Types Packs/Day Years [...]
--- OUTSIDE RECORDS SUMMARY | 2025-08-20 10:20 | XMS_ITS | Encounter Summary ---
Author Organization [facility] [employer] Address [facility] [place]-[id number] [address] [place] [address] Care Team Providers Care Educational Director Name Role Phone Newton Verdugo DO Primary Care Provider [phone] Reason for Visit * Reason Comments Med Refill Encounter Details Date Type Department Care Team (Late st Contact Info) Description 11/03/2022 Refill [facility] - Family Medicine [address] [place] [address] Lisa Winter, TONY-BAR MANAGER [address] [place] [address] Neuropathy (Primary Dx) Social History Tobacco Use [...] Office Visit [facility], A Department of [facility] [address] [place] [address] Nick Bailey MD [address], [facility] 1 [place], [place] [address] 02/24/2026 3:00 PM EDT Ophthalmology Imaging [facility] [address] [place] [address] 02/24/2026 3:10 PM EDT Office Visit [facility] [address] [place] [address] Newton Thakur MD [address] [place] [address] documented as of this encounter Visit Diagnoses Diagnosis Neuropathy- Primary Mononeuritis of unspecified site documented in this encounter Care Teams Educational Director Relationship Specialty Start Date End Date Newton Verdugo DO [facility] [place] [address] PCP - General Internal Medicine 08/24/21 documented as of this encounter
--- OUTSIDE RECORDS SUMMARY | 2025-08-20 10:23 | XMS_ITS | CCD ---
Author Organization [facility] Care Team Providers Care Single Stayer Operator Name Role Phone Sherrill Carlin Primary Care Provider [phone] Sherrill Carlin Attending Provider [phone] DO Sherrill Carlin Primary Care Provider DO Sherrill Carlin Attending Provider [phone] MD Buddy Jean Attending Provider Buddy Jean Unavailable DR SHERRILL CARLIN Attending Unavailable RAEGAN, DR MCCARTNEY Admitting Unavailable RAEGAN, DR MCCARTNEY Primary Care Unavailable RAEGAN, DR MCCARTNEY Consulting Unavailable JOSS SOARES Consulting Unavailable IVORY KING Consulting Unavailable DO Sherrill Carlin Primary Care Provider MD Buddy Jean Attending Provider [phone] SHERRILL CARLIN Referring Unavailable SHERRILL CARLIN Primary Care Unavailable DO Sherrill Carlin Primary Care Provider [phone] TONY Avila Attending Provider DO Sherrill Carlin Primary Care Provider MD Buddy Jean Attending Provider Unavailable Primary Care Provider UnavailGHANSHYAM Sofia Attending Unavailable Sherrill Carlin DO Primary Care Provider Buddy Jean MD Attending Provider Sherrill Carlin DO Primary Care Provider [phone] Sherrill Carlin DO Primary Care Provider Sherrill Carlin DO Primary Care Provider Apolinar Kelly MD Attending Provider Tony Delarosa RD Attending Provider Unavailable Domius Rodger JIMENEZ Attending Provider Yuhas, Sherrill Primary Care Unavailable Mapus, Tondra [...] sources) Shellfish Propensity to adverse reactions 8 [facility] Other (1 source) Morphine Drug Allergy 4 [facility] Repository (1 source) Shellfish Drug allergy (disorder) 4 [facility] Repository (20 sources) brimonidine; Translations: [BRIMONIDINE] Drug Allergy 2 [facility] Repository (20 sources) Morphine; Translations: [MORPHINE SULFATE] Drug Allergy 2 [facility] Repository (2 sources) SHELLFISH CONTAINING PRODUCTS; Translations: [SHELLFISH CONTAINING PRODUCTS] Propensity to adverse reactions to food (disorder) 8 [facility] Repository (20 sources) Shellfish; Translations: [shellfish derived] Allergy to substance 4 dizziness [facility] (3 sources) Shellfish Propensity to adverse reactions 8 [facility] (1 source) Morphine Drug Allergy 5 [facility] Repository Medications Current Medications Medication [...] th every twenty-four hours Biotin Maximum Strength 48091 MCG 1 capsule Orally Once a day [...] Active ergocalciferol ( Vitamin D-2) 1.25 MG (48715 UT) capsule Take 50,000 Units by mouth. [...] Indications: Type 1 diabetes mellitus with nephropathy ([facility]) USE 60 UNITS DAILY VIA INSULIN PUMP [...] 300 MG capsule Take by mouth. Active izgey-ctqio-0-dh q-kxv-tctptj (KRILL OIL) 170-81-52-50 mg capsule Take by mouth. Active bxdln-xngyx-9-dh z-ndp-dnztmo (KRILL OIL) 068-90-14-50 mg capsule Take by mouth. 0 Active [...] 2024 10:08am orally tid; Biotin Maximum Strength 27819 MCG (1 source) take 1 capsule by mouth once daily Biotin Maximum Strength 88903 MCG 1 capsule Orally Once a day [...] needed. 11/19/2024 Discontinued (Patient Stopped On Own) wneulwmpi-B3-woU79-algal oil (FOLTANX RF/MENTAX) 3 mg-35 mg-2 mg -90.314 mg capsule (16 sources) End: 11-19-2024 zjgzcomvi-E9-whH96-algal oil (FOLTANX RF/MENTAX) 3 mg-35 mg-2 mg -90.314 mg capsule Metanx (algal oil) 3 mg-35 mg-2 mg-90.314 mg capsule 11/19/2024 Discontinued (Patient Stopped On Own) bxromfygi-O9-kgS 12-algal oil (FOLTANX RF/MENTAX) 3 mg-35 mg-2 mg -90.314 mg capsule Metanx (algal oil) 3 mg-35 mg-2 mg-90.314 mg capsule Active yqmerejuk-D8-ayX 12-algal oil (FOLTANX RF/MENTAX) 3 mg-35 mg-2 [...] mL pre-filled syringes) [place] [address] mg powder for oral suspension (20 sources) [...] sources) Long-term current use of insulin; Translations: [[facility] (current) use of insulin] 04-30-2024 Episodic Other aftercare (9 sources) long term care phlebotomist (current) use of insulin; Translations: [Long-term (current) [...] 06-05-2025 HbA1c (Bld) [Mass fraction] 7.2 % [facility] No Panel InformationOrdered By: Rodger Avila on 06-05-2025 Bedside Glucose 162 [facility] Alanine aminotransferase [En zymatic activity/volume] in Serum or PlasmaOrdered By: Rodger Avila on 06-03-2025 ALT [Catalytic activity/Vol] 13 U/L 7-52 [facility] Comment on above: Performed By: #### T SH3 wRFLX, LIPID, URMACRERAT, CMP #### [facility] [address] Albumin [Mass/volume] in Ser um or Plasma by Bromocresol green (BCG) dye binding methoOrdered By: Rodger Avila on 06-03-2025 Albumin BCG dye [Mass/Vol] 3.7 g/dL 3.5-5.7 [facility] Alkaline phosphatase [Enzyma tic activity/volume] in Serum or PlasmaOrdered By: Rodger Avila on 06-03-2025 ALP [Catalytic activity/Vol] 77 U/L 34-104 [facility] Comment on above: Performed By: #### T SH3 wRFLX, LIPID, URMACRERAT, CMP #### [facility] [address] Aspartate aminotransferase [ Enzymatic activity/volume] in Serum or PlasmaOrdered By: Tondra Mapus on 06-03-2025 AST [Catalytic activity/Vol] 21 U/L 13-39 [facility] Comment on above: Performed By: #### T SH3 wRFLX, LIPID, URMACRERAT, CMP #### [facility] [address] Bilirubin.total [Mass/volume ] in Serum or PlasmaOrdered By: Tondra Mapus on 06-03-2025 Bilirubin [Mass/Vol] 0.5 mg/dL 0.3-1.0 [facility] Comment on above: Performed By: #### T SH3 wRFLX, LIPID, URMACRERAT, CMP #### [facility] [address] Calcium [Mass/volume] in Ser um or PlasmaOrdered By: Tondra Mapus on 06-03-2025 Calcium [Mass/Vol] 9.6 mg/dL 8.6-10.3 [facility] Comment on above: Performed By: #### T SH3 wRFLX, LIPID, URMACRERAT, CMP #### [facility] [address] [place] [address] [place] Carbon dioxide, total [Moles /volume] in Serum or PlasmaOrdered By: Tondra Mapus on 06-03-2025 CO2 [Moles/Vol] 31.3 mmol/L High 21.0-31.0 [facility] Comment on above: Performed By: #### T SH3 wRFLX, LIPID, URMACRERAT, CMP #### [facility] [address] [place] [address] [place] Chloride [Moles/volume] in S violetta or PlasmaOrdered By: Tondra Mapus on 06-03-2025 Chloride [Moles/Vol] 107 mmol/L 98-107 [facility] Comment on above: Performed By: #### T SH3 wRFLX, LIPID, URMACRERAT, CMP #### [facility] [address] [place] [address] [place] Cholesterol [Mass/volume] in Serum or PlasmaOrdered By: Rodger Avila on 06-03-2025 Cholesterol [Mass/Vol] 217 mg/dL High 140-200 [facility] Comment on above: Chol less than 200 m g/dl low riskChol 201-239 mg/dl borderline riskChol 240 mg/dl and greater high risk Result Comment: Chol less than 200 mg/dl low risk Chol 201-239 mg/dl borderline risk Chol 240 mg/dl and greater high risk Performed By: #### T SH3 wRFLX, LIPID, URMACRERAT, CMP #### [facility] [address] [place] [address] [place] Cholesterol in HDL [Mass/vol ume] in Serum or PlasmaOrdered By: Rodger Avila on 06-03-2025 Cholesterol in HDL [Mass/Vol] 66 mg/dL 23-92 [facility] Comment on above: HDL CHOL ATP-III CLA SSIFICATION Cardiovascular RiskHDL > or equal to 60 mg/dL LOWHDL < 40 mg/dL HIGH Result Comment: HDL CHOL ATP-III CLASSIFICATION Cardiovascular Risk HDL > or equal to 60 mg/dL LOW HDL < 40 mg/dL HIGH Performed By: #### T SH3 wRFLX, LIPID, URMACRERAT, CMP #### [facility] [address] [place] [id number] [place] Cholesterol in LDL Calc [Mas s/Vol]Ordered By: Rodger Avila on 06-03-2025 Cholesterol in LDL [Mass/Vol] 132 mg/dL High 0-100 [facility] Comment on above: LDL ATP III CLASSIFI CATIONLDL less than 100 mg/dL OptimalLDL 100-129 mg/dL Near or above optimalLDL 130-159 mg/dL Borderline highLDL 160-189 mg/dL HighLDL greater than 189 mg/dL Very high Cholesterol in VLDL Calc [Ma ss/Vol]Ordered By: Rodger Avila on 06-03-2025 Cholesterol in VLDL [Mass/Vol] 18 mg/dL [facility] Comprehensive Metabolic Pane bill 06-03-2025 Albumin [Mass/Vol] 3.7 g/dL Normal 3.5-5.7 [facility] Comment on above: Performed By: #### T SH3 wRFLX, LIPID, URMACRERAT, CMP #### [facility] [address] GFR/1.73 sq M.predicted MDRD (S/P/Bld) [Vol rate/Area] mL/min/{1.73_m2} Normal [facility] Comment on above: Performed By: #### T SH3 wRFLX, LIPID, URMACRERAT, CMP #### [facility] [address] Creatinine [Mass/volume] in Serum or PlasmaOrdered By: Rodger Avila on 06-03-2025 Creatinine [Mass/Vol] 1.07 mg/dL 0.60-1.20 [facility] Comment on above: Performed By: #### T SH3 wRFLX, LIPID, URMACRERAT, CMP #### [facility] [address] Creatinine [Mass/volume] in UrineOrdered By: Rodger Avila on 06-03-2025 Creatinine (U) [Mass/Vol] 181.00 mg/dL [facility] Comment on above: No reference range e stablished Glucose [Mass/volume] in Ser um or PlasmaOrdered By: Rodger Avila on 06-03-2025 Glucose [Mass/Vol] 129 mg/dL High 70-100 [facility] Comment on above: ADA recommended refe rence rangeRandom Glucose Reference Range is dependent on time and content of last meal. Glucose of more than 200 mg/dL in a nonstressed, ambulatory subject supports the diagnosis of Diabetes Mellitus. Result Comment: [place] om Glucose Reference Range is dependent on time and content of last meal. Glucose of more than 200 mg/dL in a nonstressed, ambulatory subject supports the diagnosis of Diabetes Mellitus. ADA recommended reference range Performed By: #### T SH3 wRFLX, LIPID, URMACRERAT, CMP #### [facility] [address] [place] [address] [facility] Lipid Panelon 06-03-2025 LDL Cholesterol,Calculated 132 mg/dL High 0-100 [facility] Comment on above: Result Comment: LDL ATP III CLASSIFICATION LDL less than 100 mg/dL Optimal LDL 100-129 mg/dL Near or above optimal LDL 130-159 mg/dL Borderline high LDL 160-189 mg/dL High LDL greater than 189 mg/dL Very high Performed By: #### T SH3 wRFLX, LIPID, URMACRERAT, CMP #### [facility] [address] [place] [id number] [facility] Triglyceride w/Reflex 93 mg/dL Normal 0-149 [facility] Comment on above: Result Comment: TRIG ATP III CLASSIFICATION TRIG less than 150 mg/dL Normal TRIG 150-199 mg/dL Borderline high TRIG 200-500 mg/dL High TRIG greater than 500 mg/dL Very high Standard traceable to the Center for Disease Conrtrol and Prevention (CDC) test method. Performed By: #### T SH3 wRFLX, LIPID, URMACRERAT, CMP #### [facility] [address] [place] [id number] [facility] VLDL CHOLESTEROL 18 mg/dL Normal [facility] Comment on above: Performed By: #### T SH3 wRFLX, LIPID, URMACRERAT, CMP #### [facility] [address] [place] [id number] [place] MicroAlb Creat Ratio,Uon Creatinine, Urine (Random) 181.00 mg/dL Normal [facility] Comment on above: Result Comment: No r eference range established Performed By: #### T SH3 wRFLX, LIPID, URMACRERAT, CMP #### [facility] [address] [place] [id number] [facility] Microalbumin/Creatinine Ratio 15.5 mg/g Normal 0.0-30.0 [facility] Comment on above: Result Comment: 30-3 00 mg/g indicates an increased risk for diabetic nephropathy. Greater than 300 mg/g is consistent with clinical nephropathy. (Am. J. Kidney Disease 1995, 25:107) PERFORMED BY: [place] [address] PATHOLOGIST DIRECTOR TRANSITION LINDA AZEVEDO M.D. Performed By: #### T SH3 wRFLX, LIPID, URMACRERAT, CMP #### [address] Microalbumin [Mass/volume] i n UrineOrdered By: Tondra Mapus on 06-03-2025 Albumin DL <= 20 mg/L (U) [Mass/Vol] 2.8 mg/dL High 0.0-1.8 [facility] Comment on above: Performed By: #### T SH3 wRFLX, LIPID, URMACRERAT, CMP #### [address] No Panel InformationOrdered By: Tondra Mapus on 06-03-2025 Estimated GFR (CKD-EPI) > 60.0 mL/Min [facility] Creatinine Clearance (Chem N/A [facility] Potassium [Moles/volume] in Serum or PlasmaOrdered By: Tondra Mapus on 06-03-2025 Potassium [Moles/Vol] 5.1 mmol/L 3.5-5.1 [facility] Comment on above: Performed By: #### T SH3 wRFLX, LIPID, URMACRERAT, CMP #### [facility] [address] [place] [address] Protein [Mass/volume] in Ser um or PlasmaOrdered By: Tondra Mapus on 06-03-2025 Protein [Mass/Vol] 6.6 g/dL 6.4-8.9 [facility] Comment on above: Performed By: #### T SH3 wRFLX, LIPID, URMACRERAT, CMP #### [facility] [address] [place] [address] Serum globulin measurement b y calculation (mass/volume)Ordered By: Tondra Mapus on 06-03-2025 Globulin (S) [Mass/Vol] 2.9 g/dL [facility] Comment on above: Performed By: #### T SH3 wRFLX, LIPID, URMACRERAT, CMP #### [facility] [address] [place] [address] Serum or plasma albumin/glob ulin mass ratioOrdered By: Tondra Mapus on 06-03-2025 Albumin/Globulin [Mass ratio] 1.3 {ratio} [facility] Comment on above: Performed By: #### T SH3 wRFLX, LIPID, URMACRERAT, CMP #### [facility] [address] [place] [address] Serum or plasma anion gap de terminationOrdered By: Tondra Mapus on 06-03-2025 Anion gap [Moles/Vol] 9.8 mmol/L 6.0-15.0 [facility] Comment on above: Performed By: #### T SH3 wRFLX, LIPID, URMACRERAT, CMP #### [facility] [address] [place] [address] Serum or plasma total choles terol/high density lipoprotein (HDL) cholesterol mass ratOrdered By: Tondra Mapus on 06-03-2025 Cholesterol.total/Choles terol in HDL [Mass ratio] 3.3 {ratio} <5.0 [facility] Comment on above: Performed By: #### T SH3 wRFLX, LIPID, URMACRERAT, CMP #### [facility] [address] [place] [address] Sodium [Moles/volume] in Ser um or PlasmaOrdered By: Tondra Mapus on 06-03-2025 Sodium [Moles/Vol] 143 mmol/L 136-145 [facility] Comment on above: Performed By: #### T SH3 wRFLX, LIPID, URMACRERAT, CMP #### [facility] [address] [place] [address] Thyroid Stim Hormone w/Rflxo n 06-03-2025 Thyroid Stim Hormone w/Rflx 2.06 u[iU]/mL Normal 0.45-5.33 [facility] Comment on above: Result Comment: PERF ORMED BY: [place] [address] PATHOLOGIST DIRECTOR TRANSITION LINDA AZEVEDO M.D. Performed By: #### T SH3 Juan [place], LIPID, URMACRERAT, CMP #### [facility] [address] Thyrotropin [Units/volume] i n Serum or PlasmaOrdered By: Tondra Mapus on 06-03-2025 TSH Qn 2.06 m[IU]/L 0.45-5.33 [facility] Triglyceride [Mass/volume] i n Serum or PlasmaOrdered By: Tondra Mapus on 06-03-2025 Triglyceride [Mass/Vol] 93 mg/dL 0-149 [facility] Comment on above: TRIG ATP III CLASSIF ICATIONTRIG less than 150 mg/dL NormalTRIG 150-199 mg/dL Borderline highTRIG 200-500 mg/dL High TRIG greater than 500 mg/dL Very highStandard traceable to the Center for Disease Conrtrol and Prevention (CDC) test method. Urea nitrogen [Mass/volume] in Serum or PlasmaOrdered By: Tondra Domius on 06-03-2025 Urea nitrogen [Mass/Vol] 22 mg/dL 06-21 [facility] Comment on above: Performed By: #### T SH3 wRFLX, LIPID, URMACRERAT, CMP #### [address] Urine microalbumin/creatinin e mass ratioOrdered By: Tondra Austin on 06-03-2025 Albumin/Creatinine DL <= 20 mg/L (U) [Mass ratio] 15.5 mg/g 0.0-30.0 [facility] Comment on above: 30-300 mg/g indicate s an increased risk for diabetic nephropathy. Greater than 300 mg/g is consistent with clinical nephropathy. (Am. J. Kidney Disease 1995, 25:107) No Panel Informationon 02-20 OD Quality: RNFL: GCC: Status: prosthesis OS Quality: fair RNFL: moderate diffuse, artifact superiorly GCC: difficult to interpret -ERM Status: stable MANUALLY TRANSCRIBED RESULTS [facility] (Bld) [Mass fract ion]on 02-19-2025 HbA1c (Bld) [Mass fraction] Hemoglobin A1c/Hemoglobin.total in Blood by HPLC [facility] No Panel Informationon 02-19 Bedside Glucose 206 [facility] No Panel Informationon 11-14 Bedside Glucose 150 [facility] Albumin [Mass/volume] in Ser um or Plasma by Bromocresol green (BCG) dye binding methoOrdered By: Buddy Jean on 09-21-2024 Albumin BCG dye [Mass/Vol] 3.8 g/dL 3.5-5.7 [facility] Albumin BCG dye [Mass/Vol] Albumin [Mass/volume] in Serum or Plasma by Bromocresol green (BCG) dye binding metho 3.5-5.7 [facility] Appearance of UrineOrdered B y: Buddy Jean on 09-21-2024 Appearance (U) Urine appearance Clear [facility] Bacteria [Presence] in Urine by AutomatedOrdered By: Buddy Jean on 09-21-2024 Bacteria Auto Ql (U) Rare [HPF] None Seen [facility] Bacteria Auto Ql (U) Bacteria [Presence] in Urine by Automated None Seen [facility] Bilirubin Test strip Ql (U)O rdered By: Buddy Jean on 09-21-2024 Bilirubin Ql (U) Negative Negative [facility] Bilirubin Ql (U) Bilirubin.total [Presence] in Urine by Test strip Negative [facility] Calcium [Mass/volume] in Ser um or PlasmaOrdered By: Buddy Jean on 09-21-2024 Calcium [Mass/Vol] 9.9 mg/dL Normal 8.6-10.3 [facility] Comment on above: Order Comment: Reaso n for Exam Chronic kidney disease, stage III (moderate);Type 1 diabetes Performed By: #### M G, URIC, [id number], ZEINAB, FE and TIBC, RENAL #### [facility] [address] Calcium [Mass/Vol] Calcium [Mass/volume ] in Serum or Plasma 8.6-10.3 [facility] Carbon dioxide, total [Moles /volume] in Serum or PlasmaOrdered By: Buddy Jean on 09-21-2024 CO2 [Moles/Vol] 31.0 mmol/L Normal 21.0-31.0 [facility] Comment on above: Order Comment: Reaso n for Exam Chronic kidney disease, stage III (moderate);Type 1 diabetes Performed By: #### M G, URIC, [id number], ZEINAB, FE and TIBC, RENAL #### [facility] [address] [place] [address] [place] CO2 [Moles/Vol] Carbon dioxide, tota l [Moles/volume] in Serum or Plasma 21.0-31.0 [facility] Chloride [Moles/volume] in S violetta or PlasmaOrdered By: Buddy Miranda on 09-21-2024 Chloride [Moles/Vol] 106 mmol/L Normal 98-107 [facility] Comment on above: Order Comment: Reaso n for Exam Chronic kidney disease, stage III (moderate);Type 1 diabetes Performed By: #### M G, URIC, [id number], ZEINAB, FE and TIBC, RENAL #### [facility] [address] [place] [address] [place] Chloride [Moles/Vol] Chloride [Moles/volume] in Serum or Plasma 98-107 [facility] Color Auto (U)Ordered By: Ab bijal Jean on 09-21-2024 Color (U) Color of Urine by Auto Yellow [facility] Color of Urine by AutoOrdere d By: Buddy Jean on 09-21-2024 Color (U) Yellow Normal Yellow [facility] Comment on above: Order Comment: Reaso n for Exam Chronic kidney disease, stage III (moderate);Type 1 diabetes Name Collection Type:: Clean-Voided Midstream Performed By: #### T SH3 wRFLX, LIPID, URMACRERAT, CMP #### [facility] [address] [place] [address] [place] Creatinine [Mass/volume] in Serum or PlasmaOrdered By: Buddy Miranda on 09-21-2024 Creatinine [Mass/Vol] 1.11 mg/dL Normal 0.60-1.20 [facility] Comment on above: Order Comment: Reaso n for Exam Chronic kidney disease, stage III (moderate);Type 1 diabetes Performed By: #### M G, URIC, [id number], ZEINAB, FE and TIBC, RENAL #### [facility] [address] [place] [id number] [place] Creatinine [Mass/Vol] Creatinine [Mass/volume] in Serum or Plasma 0.60-1.20 [facility] Creatinine [Mass/volume] in UrineOrdered By: Buddy Jean on 09-21-2024 Creatinine (U) [Mass/Vol] 180.00 mg/dL [facility] Comment on above: No reference range e stablished Creatinine (U) [Mass/Vol] Creatinine [Mass/volume] in Urine [facility] Comment on above: No reference range e stablished Dipstick and Microscopicon 1 Bacteria,Urine Rare Normal None Seen [facility] Comment on above: Order Comment: Reaso n for Exam Chronic kidney disease, stage III (moderate);Type 1 diabetes Name Collection Type:: Clean-Voided Midstream Performed By: #### T SH3 wRFLX, LIPID, URMACRERAT, CMP #### [facility] [address] [place] [id number] [place] Bilirubin,Urine Negative Normal Negative [facility] Comment on above: Order Comment: Reaso n for Exam Chronic kidney disease, stage III (moderate);Type 1 diabetes Name Collection Type:: Clean-Voided Midstream Performed By: #### T SH3 wRFLX, LIPID, URMACRERAT, CMP #### [facility] [address] [place] [id number] [place] Glucose Ql (U) Normal Normal Normal [facility] Comment on above: Order Comment: Reaso n for Exam Chronic kidney disease, stage III (moderate);Type 1 diabetes Name Collection Type:: Clean-Voided Midstream Performed By: #### T SH3 wRFLX, LIPID, URMACRERAT, CMP #### [facility] [address] [place] [address] [place] Hyaline Casts,Urine 0-8 Normal 0-8 [facility] Comment on above: Order Comment: Reaso n for Exam Chronic kidney disease, stage III (moderate);Type 1 diabetes Name Collection Type:: Clean-Voided Midstream Performed By: #### T SH3 wRFLX, LIPID, URMACRERAT, CMP #### [facility] [address] [place] [address] [place] Mucus,Urine Rare Normal [facility] Comment on above: Order Comment: Reaso n for Exam Chronic kidney disease, stage III (moderate);Type 1 diabetes Name Collection Type:: Clean-Voided Midstream Result Comment: PERF ORMED BY: [place] [address] PATHOLOGIST DIRECTOR TRANSITION VELASQUEZ CARLOS M.D. Performed By: #### T SH3 wRFLX, LIPID, URMACRERAT, CMP #### [place] [address] [place] Nitrite,Urine Negative Normal Negative [facility] Comment on above: Order Comment: Reaso n for Exam Chronic kidney disease, stage III (moderate);Type 1 diabetes Name Collection Type:: Clean-Voided Midstream Performed By: #### T SH3 wRFLX, LIPID, URMACRERAT, CMP #### [facility] [address] [place] [address] [place] Occult Blood,Urine Negative Normal Negative [facility] Comment on above: Order Comment: Reaso n for Exam Chronic kidney disease, stage III (moderate);Type 1 diabetes Name Collection Type:: Clean-Voided Midstream Performed By: #### T SH3 wRFLX, LIPID, URMACRERAT, CMP #### [facility] [address] [place] [address] [place] Protein,Urine Negative Normal Negative [facility] Comment on above: Order Comment: Reaso n for Exam Chronic kidney disease, stage III (moderate);Type 1 diabetes Name Collection Type:: Clean-Voided Midstream Performed By: #### T SH3 wRFLX, LIPID, URMACRERAT, CMP #### [address] RBC,Urine 1-2 Normal 0-4 [facility] Comment on above: Order Comment: Reaso n for Exam Chronic kidney disease, stage III (moderate);Type 1 diabetes Name Collection Type:: Clean-Voided Midstream Performed By: #### T SH3 wRFLX, LIPID, URMACRERAT, CMP #### [facility] [address] Specificy [place],Urine 1.018 Normal 1.001-1.030 [facility] Comment on above: Order Comment: Reaso n for Exam Chronic kidney disease, stage III (moderate);Type 1 diabetes Name Collection Type:: Clean-Voided Midstream Performed By: #### T SH3 wRFLX, LIPID, URMACRERAT, CMP #### [address] Squamous Epithelial Cell,Urine 5-9 High 0-2 [facility] Comment on above: Order Comment: Reaso n for Exam Chronic kidney disease, stage III (moderate);Type 1 diabetes Name Collection Type:: Clean-Voided Midstream Performed By: #### T SH3 wRFLX, LIPID, URMACRERAT, CMP #### [address] Urobilinogen,Urine Normal Normal Normal [facility] Comment on above: Order Comment: Reaso n for Exam Chronic kidney disease, stage III (moderate);Type 1 diabetes Name Collection Type:: Clean-Voided Midstream Performed By: #### T SH3 wRFLX, LIPID, URMACRERAT, CMP #### [facility] [address] [place] [address] WBC,Urine 5-9 High 0-4 [facility] Comment on above: Order Comment: Reaso n for Exam Chronic kidney disease, stage III (moderate);Type 1 diabetes Name Collection Type:: Clean-Voided Midstream Performed By: #### T SH3 wRFLX, LIPID, URMACRERAT, CMP #### [address] Epithelial cells.squamous [# /area] in Urine sediment by Automated countOrdered By: Buddy Jean on 09-21-2024 Epithelial cells.squamous Auto (Urine sed) [#/Area] 5-9 [HPF] High 0-2 [facility] Epithelial cells.squamous Auto (Urine sed) [#/Area] Epithelial cells.squamous [#/area] in Urine sediment by Automated count High 0-2 [facility] Erythrocyte distribution wid th Auto (RBC) [Ratio]Ordered By: Buddy Miranda on 09-21-2024 Erythrocyte distribution width (RBC) [Ratio] Erythrocyte distribution width [Ratio] by Automated count 11.9-15.3 [facility] Erythrocyte distribution wid th [Ratio] by Automated countOrdered By: Buddy Miranda on 09-21-2024 Erythrocyte distribution width (RBC) [Ratio] 14.0 % Normal 11.9-15.3 [facility] Comment on above: Order Comment: Reaso n for Exam Chronic kidney disease, stage III (moderate);Type 1 diabetes Performed By: #### C BCNO #### [facility] [address] [place] [address] Erythrocytes [#/area] in Uri ne sediment by Automated countOrdered By: Buddy Jean on 09-21-2024 RBC Auto (Urine sed) [#/Area] 1-2 [HPF] 0-4 [facility] RBC Auto (Urine sed) [#/Area] Erythrocytes [#/area] in Urine sediment by Automated count 0-4 [facility] Erythrocytes [#/volume] in B lood by Automated countOrdered By: Buddy Miranda on 09-21-2024 RBC (Bld) [#/Vol] 3.82 10*6/uL Normal 3.60-5.00 [facility] Comment on above: Order Comment: Reaso n for Exam Chronic kidney disease, stage III (moderate);Type 1 diabetes Performed By: #### C BCNO #### [facility] [address] [place] [address] [place] Ferritin [Mass/volume] in Se rum or PlasmaOrdered By: Buddy Griffithsr on 09-21-2024 Ferritin [Mass/Vol] 41.2 ng/mL Normal 11.0-306.8 [facility] Comment on above: Order Comment: Reaso n for Exam Chronic kidney disease, stage III (moderate);Type 1 diabetes Performed By: #### T SH3 wRFLX, LIPID, URMACRERAT, CMP #### [facility] [address] [place] [address] [facility] Ferritin [Mass/Vol] Ferritin [Mass/volume] in Serum or Plasma 11.0-306.8 [facility] Glucose [Mass/volume] in Ser um or PlasmaOrdered By: Buddy Jean on 09-21-2024 Glucose [Mass/Vol] 118 mg/dL High 70-100 [facility] Comment on above: ADA recommended refe rence rangeRandom Glucose Reference Range is dependent on time and content of last meal. Glucose of more than 200 mg/dL in a nonstressed, ambulatory subject supports the diagnosis of Diabetes Mellitus. Order Comment: Reaso n for Exam Chronic kidney disease, stage III (moderate);Type 1 diabetes Result Comment: [place] om Glucose Reference Range is dependent on time and content of last meal. Glucose of more than 200 mg/dL in a nonstressed, ambulatory subject supports the diagnosis of Diabetes Mellitus. ADA recommended reference range Performed By: #### M G, URIC, [id number], ZEINAB, FE and TIBC, RENAL #### [facility] [address] [place] [address] [place] Glucose [Mass/Vol] Glucose [Mass/volume ] in Serum or Plasma [facility] 70-100 [facility] Comment on above: ADA recommended refe rence rangeRandom Glucose Reference Range is dependent on time and content of last meal. Glucose of more than 200 mg/dL in a nonstressed, ambulatory subject supports the diagnosis of Diabetes Mellitus. Glucose [Mass/volume] in Uri ne by Test stripOrdered By: Buddy Jean on 09-21-2024 Glucose Test strip (U) [Mass/Vol] Normal mg/dL Normal [facility] Glucose Test strip (U) [Mass/Vol] Glucose [Mass/volume] in Urine by Test strip Normal [facility] Hematocrit Auto (Bld) [Volum e fraction]Ordered By: Buddy Jean on 09-21-2024 Hematocrit (Bld) [Volume fraction] Hematocrit [Volume Fraction] of Blood by Automated count 34.0-46.4 [facility] Hematocrit [Volume Fraction] of Blood by Automated countOrdered By: Buddy Jean on 09-21-2024 Hematocrit (Bld) [Volume fraction] 37.4 % Normal 34.0-46.4 [facility] Comment on above: Order Comment: Reaso n for Exam Chronic kidney disease, stage III (moderate);Type 1 diabetes Performed By: #### C BCNO #### [address] Hemoglobin Test strip Ql (U) Ordered By: Buddy Jean on 09-21-2024 Hemoglobin Ql (U) Negative Negative [facility] Hemoglobin Ql (U) Hemoglobin [Presence ] in Urine by Test strip Negative [facility] Hemoglobin [Mass/volume] in BloodOrdered By: Buddy Jean on 09-21-2024 Hemoglobin (Bld) [Mass/Vol] 12.5 g/dL Normal 11.8-15.4 [facility] Comment on above: Order Comment: Reaso n for Exam Chronic kidney disease, stage III (moderate);Type 1 diabetes Performed By: #### C BCNO #### [address] Hemoglobin (Bld) [Mass/Vol] Hemoglobin [Mass/volume] in Blood 11.8-15.4 [facility] Hemogram CBC Without Diffon 09-21-2024 Mean Corpuscular HGB Conc 33.4 g/dL Normal 32.0-35.0 [facility] Comment on above: Order Comment: Reaso n for Exam Chronic kidney disease, stage III (moderate);Type 1 diabetes Performed By: #### C BCNO #### [facility] [address] [place] [address] WBC (Bld) [#/Vol] 4.2 10*3/uL Normal 3.8-11.6 [facility] Comment on above: Order Comment: Reaso n for Exam Chronic kidney disease, stage III (moderate);Type 1 diabetes Performed By: #### C BCNO #### [address] Hyaline casts [#/area] in Ur ine sediment by Automated countOrdered By: Buddy Jean on 09-21-2024 Hyaline casts Auto (Urine sed) [#/Area] 0-8 [LPF] 0-8 [facility] Hyaline casts Auto (Urine sed) [#/Area] Hyaline casts [#/area] in Urine sediment by Automated count 0-8 [facility] Iron [Mass/volume] in Serum or PlasmaOrdered By: Buddy Griffithsr on 09-21-2024 Iron [Mass/Vol] 50 ug/dL Normal 50-212 [facility] Comment on above: Order Comment: Reaso n for Exam Chronic kidney disease, stage III (moderate);Type 1 diabetes Performed By: #### T SH3 wRFLX, LIPID, URMACRERAT, CMP #### [facility] [address] [place] [id number] [facility] Iron [Mass/Vol] Iron [Mass/volume] i n Serum or Plasma 50-212 [facility] Iron and TIBC Profileon 08-29 % Iron Saturation 17.4 % Low 20-50 [facility] Comment on above: Order Comment: Reaso n for Exam Chronic kidney disease, stage III (moderate);Type 1 diabetes Performed By: #### T SH3 wRFLX, LIPID, URMACRERAT, CMP #### [facility] [address] [place] [id number] [facility] Total Iron Binding Capacity 287 ug/dL Normal 255-450 [facility] Comment on above: Order Comment: Reaso n for Exam Chronic kidney disease, stage III (moderate);Type 1 diabetes Performed By: #### T SH3 wRFLX, LIPID, URMACRERAT, CMP #### [facility] [address] [place] [id number] [place] Iron binding capacity [Mass/ volume] in Serum or PlasmaOrdered By: Buddy Miranda on 09-21-2024 Iron binding capacity [Mass/Vol] 287 ug/dL 255-450 [facility] Iron saturation [Mass Fracti on] in Serum or PlasmaOrdered By: Buddy Miranda on 09-21-2024 Iron saturation [Mass fraction] 17.4 % Low 20-50 [facility] Ketones Test strip Ql (U)Ord ered By: Buddy Jean on 09-21-2024 Ketones Ql (U) Ketones [Presence] i n Urine by Test strip Negative [facility] Ketones [Presence] in Urine by Test stripOrdered By: Buddy Jean on 09-21-2024 Ketones Ql (U) Negative Normal Negative [facility] Comment on above: Order Comment: Reaso n for Exam Chronic kidney disease, stage III (moderate);Type 1 diabetes Name Collection Type:: Clean-Voided Midstream Performed By: #### T SH3 wRFLX, LIPID, URMACRERAT, CMP #### [facility] [address] Laboratory - Microbiology an d Antimicrobial susceptibilityOrdered By: Buddy Jean on 09-21-2024 Bacteria identified Cx Nom (U) No Growth 2 Days [facility] Leukocyte esterase [Presence ] in Urine by Test stripOrdered By: Buddy Jean on 09-21-2024 Leukocyte esterase Test strip Ql (U) 3+ High Negative [facility] Comment on above: Order Comment: Reaso n for Exam Chronic kidney disease, stage III (moderate);Type 1 diabetes Name Collection Type:: Clean-Voided Midstream Performed By: #### T SH3 wRFLX, LIPID, URMACRERAT, CMP #### [facility] [address] [place] [address] [place] Leukocyte esterase Test strip Ql (U) Leukocyte esterase [Presence] in Urine by Test strip High Negative [facility] Leukocytes [#/area] in Urine sediment by Automated countOrdered By: Buddy Jean on 09-21-2024 WBC Auto (Urine sed) [#/Area] 5-9 [HPF] High 0-4 [facility] WBC Auto (Urine sed) [#/Area] Leukocytes [#/area] in Urine sediment by Automated count High 0-4 [facility] Leukocytes [#/volume] correc man for nucleated erythrocytes in Blood by Automated counOrdered By: Buddy Jean on 09-21-2024 WBC corrected for nucl RBC Auto (Bld) [#/Vol] 4.2 10*3/uL 3.8-11.6 [facility] WBC corrected for nucl RBC Auto (Bld) [#/Vol] Leukocytes [#/volume] corrected for nucleated erythrocytes in Blood by Automated coun 3.8-11.6 [facility] MCH Auto (RBC) [Entitic mass ]Ordered By: Buddy Jean on 09-21-2024 MCH (RBC) [Entitic mass] MCH [Entitic ma ss] by Automated count 24.7-34.3 [facility] MCH [Entitic mass] by Automa man countOrdered By: Buddy Jean on 09-21-2024 MCH (RBC) [Entitic mass] 32.7 pg Normal 24.7-34.3 [facility] Comment on above: Order Comment: Reaso n for Exam Chronic kidney disease, stage III (moderate);Type 1 diabetes Performed By: #### C BCNO #### [facility] [address] [place] [address] MCHC Auto (RBC) [Mass/Vol]Or dered By: Buddy Jean on 09-21-2024 MCHC (RBC) [Mass/Vol] 33.4 g/dL 32.0-35.0 [facility] MCHC (RBC) [Mass/Vol] MCHC [Mass/volume] by Automated count 32.0-35.0 [facility] MCV Auto (RBC) [Entitic vol] Ordered By: Buddy Jean on 09-21-2024 MCV (RBC) [Entitic vol] MCV [Entitic vol ume] by Automated count 80-100 [facility] MCV [Entitic volume] by Auto mated countOrdered By: Buddy Jean on 09-21-2024 MCV (RBC) [Entitic vol] 97.9 fL Normal 80-100 [facility] Comment on above: Order Comment: Reaso n for Exam Chronic kidney disease, stage III (moderate);Type 1 diabetes Performed By: #### C BCNO #### [facility] [address] [place] [address] Magnesium [Mass/volume] in S violetta or PlasmaOrdered By: Buddy Jean on 09-21-2024 Magnesium [Mass/Vol] 2.0 mg/dL Normal 1.9-2.7 [facility] Comment on above: Order Comment: Reaso n for Exam Chronic kidney disease, stage III (moderate);Type 1 diabetes Performed By: #### M G, URIC, [id number], ZEINAB, FE and TIBC, RENAL #### [facility] [address] Magnesium [Mass/Vol] Magnesium [Mass/volume] in Serum or Plasma 1.9-2.7 [facility] Mucus [Presence] in Urine by AutomatedOrdered By: Buddy Jean on 09-21-2024 Mucus Auto Ql (U) Rare [facility]LPF] [facility] Mucus Auto Ql (U) Mucus [Presence] in Urine by Automated [facility] Nitrite Test strip Ql (U)Ord ered By: Buddy Jean on 09-21-2024 Nitrite Ql (U) Negative Negative [facility] Nitrite Ql (U) Nitrite [Presence] i n Urine by Test strip Negative [facility] No Panel InformationOrdered By: Buddy Jean on 09-21-2024 Estimated GFR (CKD-EPI) 58.336 mL/Min [facility] Creatinine Clearance (Chem N/A [facility] Parathyrin.intact [Mass/volu me] in Serum or PlasmaOrdered By: Buddy Jean on 09-21-2024 Parathyrin.intact [Mass/Vol] 33.0 pg/mL [facility] Parathyrin.intact [Mass/Vol] Parathyrin.intact [Mass/volume] in Serum or Plasma [facility] Parathyroid Hormone Intacton 09-21-2024 Parathyroid Hormone Intact 33.0 pg/mL Normal [facility] Comment on above: Order Comment: Reaso n for Exam Chronic kidney disease, stage III (moderate);Type 1 diabetes Result Comment: PERF ORMED BY: [facility] [address] [place] [address] PATHOLOGIST DIRECTOR TRANSITION VELASQUEZ CARLOS M.D. Performed By: #### P TH #### [facility] [address] [place] [address] Phosphate [Mass/volume] in S violetta or PlasmaOrdered By: Buddy Jean on 09-21-2024 Phosphate [Mass/Vol] 4.1 mg/dL Normal 2.5-4.5 [facility] Comment on above: Order Comment: Reaso n for Exam Chronic kidney disease, stage III (moderate);Type 1 diabetes Performed By: #### M G, URIC, [id number], ZEINAB, FE and TIBC, RENAL #### [facility] [address] [place] [address] Phosphate [Mass/Vol] Phosphate [Mass/volume] in Serum or Plasma 2.5-4.5 [facility] Platelet mean volume Auto (B ld) [Entitic vol]Ordered By: Buddy Miranda on 09-21-2024 Platelet mean volume (Bld) [Entitic vol] Platelet mean volume [Entitic volume] in Blood by Automated count 6.3-10.7 [facility] Platelet mean volume [Entiti c volume] in Blood by Automated countOrdered By: Buddy Miranda on 09-21-2024 Platelet mean volume (Bld) [Entitic vol] 10.2 fL Normal 6.3-10.7 [facility] Comment on above: Order Comment: Reaso n for Exam Chronic kidney disease, stage III (moderate);Type 1 diabetes Result Comment: PERF ORMED BY: [place] [address] PATHOLOGIST DIRECTOR TRANSITION VELASQUEZ CARLOS M.D. Performed By: #### C BCNO #### [facility] [address] [place] [address] [place] Platelets Auto (Bld) [#/Vol] Ordered By: Buddy Miranda on 09-21-2024 Platelets (Bld) [#/Vol] Platelets [#/vol ume] in Blood by Automated count 150-450 [facility] Platelets [#/volume] in Bloo d by Automated countOrdered By: Buddy Miranda on 09-21-2024 Platelets (Bld) [#/Vol] 289 10*3/uL Normal 150-450 [facility] Comment on above: Order Comment: Reaso n for Exam Chronic kidney disease, stage III (moderate);Type 1 diabetes Performed By: #### C BCNO #### [facility] [address] Potassium [Moles/volume] in Serum or PlasmaOrdered By: Buddy Jean on 09-21-2024 Potassium [Moles/Vol] 4.9 mmol/L Normal 3.5-5.1 [facility] Comment on above: Order Comment: Reaso n for Exam Chronic kidney disease, stage III (moderate);Type 1 diabetes Performed By: #### M G, URIC, [id number], ZEINAB, FE and TIBC, RENAL #### [address] Potassium [Moles/Vol] Potassium [Moles/volume] in Serum or Plasma 3.5-5.1 [facility] Protein Creat Ratio Ur Rando mon 09-21-2024 Creatinine, Urine (Random) 180.00 mg/dL Normal [facility] Comment on above: Order Comment: Reaso n for Exam Chronic kidney disease, stage III (moderate);Type 1 diabetes Result Comment: No r eference range established Performed By: #### P ROCRERAT #### [address] Urine Protein/Creatinine Ratio 56 mg/g{Cre} Normal 0-200 [facility] Comment on above: Order Comment: Reaso n for Exam Chronic kidney disease, stage III (moderate);Type 1 diabetes Result Comment: PERF ORMED BY: [place] [address] PATHOLOGIST DIRECTOR TRANSITION VELASQUEZ CARLOS M.D. Performed By: #### P ROCRERAT #### [address] Protein Test strip (U) [Mass /Vol]Ordered By: Buddy Jean on 09-21-2024 Protein (U) [Mass/Vol] Negative Negative [facility] Protein (U) [Mass/Vol] Protein [Mass/vol ume] in Urine by Test strip Negative [facility] Protein [Mass/volume] in Uri neOrdered By: Buddy Jean on 09-21-2024 Protein (U) [Mass/Vol] 10 mg/dL High 0-9 [facility] Comment on above: Order Comment: Reaso n for Exam Chronic kidney disease, stage III (moderate);Type 1 diabetes Performed By: #### P ROCRERAT #### [facility] [address] [place] [address] Protein (U) [Mass/Vol] Protein [Mass/vol ume] in Urine High 0-9 [facility] RBC Auto (Bld) [#/Vol]Ordere d By: Buddy Jean on 09-21-2024 RBC (Bld) [#/Vol] Erythrocytes [#/volume] in Blood by Automated count 3.60-5.00 [facility] Renal Function Panelon 09-21 Albumin [Mass/Vol] 3.8 g/dL Normal 3.5-5.7 [facility] Comment on above: Order Comment: Reaso n for Exam Chronic kidney disease, stage III (moderate);Type 1 diabetes Performed By: #### M G, URIC, [id number], ZEINAB, FE and TIBC, RENAL #### [place] [address] [place] GFR/1.73 sq M.predicted MDRD (S/P/Bld) [Vol rate/Area] 58.336 mL/min/{1.73_m2} Normal [facility] Comment on above: Order Comment: Reaso n for Exam Chronic kidney disease, stage III (moderate);Type 1 diabetes Performed By: #### M G, URIC, [id number], ZEINAB, FE and TIBC, RENAL #### [facility] [address] [place] [address] Serum or plasma anion gap de terminationOrdered By: Buddy Jean on 09-21-2024 Anion gap [Moles/Vol] 8.9 mmol/L Normal 6.0-15.0 [facility] Comment on above: Order Comment: Reaso n for Exam Chronic kidney disease, stage III (moderate);Type 1 diabetes Performed By: #### M G, URIC, [id number], ZEINAB, FE and TIBC, RENAL #### [place] [id number] [place] Anion gap [Moles/Vol] Serum or plasma an ion gap determination 6.0-15.0 [facility] Serum or plasma iron binding capacity measurement (mass/volume)Ordered By: Buddy Jean on 09-21-2024 Iron binding capacity [Mass/Vol] Iron binding capacity [Mass/volume] in Serum or Plasma 255-450 [facility] Serum or plasma iron saturat ion measurement (mass fraction)Ordered By: Buddy Jean on 09-21-2024 Iron saturation [Mass fraction] Iron saturation [Mass Fraction] in Serum or Plasma Low 20-50 [facility] Sodium [Moles/volume] in Ser um or PlasmaOrdered By: Buddy Jean on 09-21-2024 Sodium [Moles/Vol] 141 mmol/L Normal 136-145 [facility] Comment on above: Order Comment: Reaso n for Exam Chronic kidney disease, stage III (moderate);Type 1 diabetes Performed By: #### M G, URIC, [id number], ZEINAB, FE and TIBC, RENAL #### [facility] [address] [place] [id number] [place] Sodium [Moles/Vol] Sodium [Moles/volume ] in Serum or Plasma 136-145 [facility] Specific gravity Test strip (U) [Rel density]Ordered By: Buddy Jean on 09-21-2024 Specific gravity (U) [Rel density] 1.018 1.001-1.030 [facility] Specific gravity (U) [Rel density] Specific gravity of Urine by Test strip 1.001-1.030 [facility] Transferrin [Mass/volume] in Serum or PlasmaOrdered By: Buddy Jean on 09-21-2024 Transferrin [Mass/Vol] 205 mg/dL Normal 203-362 [facility] Comment on above: Order Comment: Reaso n for Exam Chronic kidney disease, stage III (moderate);Type 1 diabetes Performed By: #### T SH3 wRFLX, LIPID, URMACRERAT, CMP #### [facility] [address] [place] [address] [place] Transferrin [Mass/Vol] Transferrin [Mass/volume] in Serum or Plasma 203-362 [facility] Urate [Mass/volume] in Serum or PlasmaOrdered By: Buddy Jean on 09-21-2024 Urate [Mass/Vol] 6.0 mg/dL Normal 2.3-6.6 [facility] Comment on above: Order Comment: Reaso n for Exam Chronic kidney disease, stage III (moderate);Type 1 diabetes Performed By: #### M G, URIC, [id number], ZEINAB, FE and TIBC, RENAL #### [facility] [address] Urate [Mass/Vol] Urate [Mass/volume] in Serum or Plasma 2.3-6.6 [facility] Urea nitrogen [Mass/volume] in Serum or PlasmaOrdered By: Buddy Jean on 09-21-2024 Urea nitrogen [Mass/Vol] 27 mg/dL High 06-21 [facility] Comment on above: Order Comment: Reaso n for Exam Chronic kidney disease, stage III (moderate);Type 1 diabetes Performed By: #### M G, URIC, [id number], ZEINAB, FE and TIBC, RENAL #### [facility] [address] Urea nitrogen [Mass/Vol] Urea nitrogen [Mass/volume] in Serum or Plasma High 06-21 [facility] Urine Cultureon 09-21-2024 Bacteria identified Cx Nom (U) No Growth 2 Days PERFORMED BY: [place] [address] PATHOLOGIST DIRECTOR TRANSITION VELASQUEZ CARLOS M.D. Normal [facility] Comment on above: Performed By: #### T SH3 wRFLX, LIPID, URMACRERAT, CMP #### [facility] [address] Urine appearanceOrdered By: Buddy Jean on 09-21-2024 Appearance (U) Clear Normal Clear [facility] Comment on above: Order Comment: Reaso n for Exam Chronic kidney disease, stage III (moderate);Type 1 diabetes Name Collection Type:: Clean-Voided Midstream Performed By: #### T SH3 wRFLX, LIPID, URMACRERAT, CMP #### [facility] [facility] [address] Urine cultureOrdered By: Julio Jean on 09-21-2024 Bacteria identified Cx Nom (U) Urine culture [facility] Urine protein/creatinine rat ioOrdered By: Buddy Griffithsr on 09-21-2024 Protein/Creatinine (U) [Ratio] 56 mg/g{Cre} 0-200 [facility] Protein/Creatinine (U) [Ratio] Urine protein/creatinine ratio 0-200 [facility] Urobilinogen Test strip (U) [Mass/Vol]Ordered By: Buddy Miranda on 09-21-2024 Urobilinogen (U) [Mass/Vol] Normal mg/dL Normal [facility] Urobilinogen (U) [Mass/Vol] Urobilinogen [Mass/volume] in Urine by Test strip Normal [facility] Vitamin D 25 Hydroxy Totalon 09-21-2024 Vitamin D 25 Hydroxy Total 58.0 ng/mL Normal 30-100 [facility] Comment on above: [...] practice guideline. JCEM. 2010; 96(7):1911-30. PERFORMED BY: [place] [address] PATHOLOGIST DIRECTOR TRANSITION VELASQUEZ CARLOS M.D. Performed By: #### T SH3 wRFLX, LIPID, URMACRERAT, CMP #### [facility] [address] [place], [place] [id number] [facility] Vitamin D+Metabolites [Mass/ volume] in Serum or PlasmaOrdered By: Buddy Jean on 09-21-2024 Vitamin D+Metabolites [Mass/Vol] 58.0 ng/mL 30-100 [facility] Comment on above: VITAMIN D STATUS 25( [place])VITAMIN D RANGE (ng/mL) Deficient <20 Insufficient 20 to <30Sufficient 30 to 100Reference: Obed Gil, Jaimie BAKER, et al. Evaluation,treatment, and prevention of vitamin D deficiency; an Endocrine Society clinical practice guideline. [facility] [place]; 96(7[place]1911-30. Vitamin D+Metabolites [Mass/Vol] Vitamin D+Metabolites [Mass/volume] in Serum or Plasma 30-100 [facility] Comment on above: VITAMIN D STATUS 25( [place])VITAMIN D RANGE (ng/mL) Deficient <20 Insufficient 20 to <30Sufficient 30 to 100Reference: Obed Gil, Jaimie BAKER, et al. Evaluation,treatment, and prevention of vitamin D deficiency; an Endocrine Society clinical practice guideline. [facility] [place]; 96(7):1911-30. pH Test strip (U)Ordered By: Buddy Jean on 09-21-2024 pH (U) pH of Urine by Test strip 5.0-9.0 [facility] pH of Urine by Test stripOrd ered By: Buddy Jean on 09-21-2024 pH (U) 5.5 [pH] Normal 5.0-9.0 [facility] Comment on above: Order Comment: Reaso n for Exam Chronic kidney disease, stage III (moderate);Type 1 diabetes Name Collection Type:: Clean-Voided Midstream Performed By: #### T SH3 wRFLX, LIPID, URMACRERAT, CMP #### [facility] [address] No Panel Informationon 09-10 [facility] Alanine aminotransferase [En zymatic activity/volume] in Serum or PlasmaOrdered By: Rodger Avila on 05-14-2024 ALT [Catalytic activity/Vol] 18 U/L 7-52 [facility] Albumin [Mass/volume] in Ser um or Plasma by Bromocresol green (BCG) dye binding methoOrdered By: Rodger Avila on 05-14-2024 Albumin BCG dye [Mass/Vol] 4.0 g/dL 3.5-5.7 [facility] Alkaline phosphatase [Enzyma tic activity/volume] in Serum or PlasmaOrdered By: Rodger Avila on 05-14-2024 ALP [Catalytic activity/Vol] 79 U/L 34-104 [facility] Aspartate aminotransferase [ Enzymatic activity/volume] in Serum or PlasmaOrdered By: Rodger Avila on 05-14-2024 AST [Catalytic activity/Vol] 23 U/L 13-39 [facility] Bilirubin.total [Mass/volume ] in Serum or PlasmaOrdered By: Rodger Avila on 05-14-2024 Bilirubin [Mass/Vol] 0.4 mg/dL 0.3-1.0 [facility] Calcium [Mass/volume] in Ser um or PlasmaOrdered By: Rodger Avila on 05-14-2024 Calcium [Mass/Vol] 9.9 mg/dL 8.6-10.3 [facility] Carbon dioxide, total [Moles /volume] in Serum or PlasmaOrdered By: Rodger Avila on 05-14-2024 CO2 [Moles/Vol] 30.5 mmol/L 21.0-31.0 [facility] Chloride [Moles/volume] in S violetta or PlasmaOrdered By: Rodger Avila on 05-14-2024 Chloride [Moles/Vol] 106 mmol/L 98-107 [facility] Cholesterol [Mass/volume] in Serum or PlasmaOrdered By: Rodger Avila on 05-14-2024 Cholesterol [Mass/Vol] 157 mg/dL 140-200 [facility] Comment on above: Chol less than 200 m g/dl low riskChol 201-239 mg/dl borderline riskChol 240 mg/dl and greater high risk Cholesterol in LDL Calc [Mas s/Vol]Ordered By: Rodger Avila on 05-14-2024 Cholesterol in LDL [Mass/Vol] 76 mg/dL 0-100 [facility] Comment on above: LDL ATP III CLASSIFI CATIONLDL less than 100 mg/dL OptimalLDL 100-129 mg/dL Near or above optimalLDL 130-159 mg/dL Borderline highLDL 160-189 mg/dL HighLDL greater than 189 mg/dL Very high Cholesterol in VLDL Calc [Ma ss/Vol]Ordered By: Rodger Avila on 05-14-2024 Cholesterol in VLDL [Mass/Vol] 22 mg/dL [facility] Creatinine [Mass/volume] in Serum or PlasmaOrdered By: Rodger Avila on 05-14-2024 Creatinine [Mass/Vol] 1.15 mg/dL 0.60-1.20 [facility] Creatinine [Mass/volume] in UrineOrdered By: Rodger Avila on 05-14-2024 Creatinine (U) [Mass/Vol] 276.00 mg/dL [facility] Comment on above: No reference range e stablished Globulin Calc (S) [Mass/Vol] Ordered By: Rodger Avila on 05-14-2024 Globulin (S) [Mass/Vol] 2.8 g/dL [facility] Glucose [Mass/volume] in Ser um or PlasmaOrdered By: Rodger Avila on 05-14-2024 Glucose [Mass/Vol] 140 mg/dL High 70-100 [facility] Comment on above: ADA recommended refe rence rangeRandom Glucose Reference Range is dependent on time and content of last meal. Glucose of more than 200 mg/dL in a nonstressed, ambulatory subject supports the diagnosis of Diabetes Mellitus. Microalbumin [Mass/volume] i n UrineOrdered By: Rodger Avila on 05-14-2024 Albumin DL <= 20 mg/L (U) [Mass/Vol] 13.6 mg/dL High 0.0-1.8 [facility] No Panel InformationOrdered By: Rodger Avila on 05-14-2024 C-Peptide <0.1 ng/mL Low 1.1-4.4 [facility] Comment on above: C-Peptide reference interval is for fasting patients.Performed at: [facility] [id number] Director: Wenceslao Hoyos PhD, Phone: [phone] Estimated GFR (CKD-EPI) 56.259 mL/Min [facility] Creatinine Clearance (Chem N/A [facility] Potassium [Moles/volume] in Serum or PlasmaOrdered By: Rodger Avila on 05-14-2024 Potassium [Moles/Vol] 5.1 mmol/L 3.5-5.1 [facility] Protein [Mass/volume] in Ser um or PlasmaOrdered By: Rodger Avila on 05-14-2024 Protein [Mass/Vol] 6.8 g/dL 6.4-8.9 [facility] Serum or plasma albumin/glob ulin mass ratioOrdered By: Rodger Avila on 05-14-2024 Albumin/Globulin [Mass ratio] 1.4 {ratio} [facility] Serum or plasma anion gap de terminationOrdered By: Rodger Avila on 05-14-2024 Anion gap [Moles/Vol] 9.6 mmol/L 6.0-15.0 [facility] Serum or plasma high density lipoprotein (HDL) cholesterol measurementOrdered By: Rodger Avila on 05-14-2024 Cholesterol in HDL [Mass/Vol] 59 mg/dL 23-92 [facility] Comment on above: HDL CHOL ATP-III CLA SSIFICATION Cardiovascular RiskHDL > or equal to 60 mg/dL LOWHDL < 40 mg/dL HIGH Serum or plasma total choles terol/high density lipoprotein (HDL) cholesterol mass ratOrdered By: Rodger Avila on 05-14-2024 Cholesterol.total/Choles terol in HDL [Mass ratio] 2.7 {ratio} <5.0 [facility] Sodium [Moles/volume] in Ser um or PlasmaOrdered By: Rodger Avila on 05-14-2024 Sodium [Moles/Vol] 141 mmol/L 136-145 [facility] Thyrotropin [Units/volume] i n Serum or PlasmaOrdered By: Rodger Avila on 05-14-2024 TSH Qn 1.89 m[IU]/L 0.45-5.33 [facility] Triglyceride [Mass/volume] i n Serum or PlasmaOrdered By: Biancaa Austin on 05-14-2024 Triglyceride [Mass/Vol] 110 mg/dL 0-149 [facility] Comment on above: TRIG ATP III CLASSIF ICATIONTRIG less than 150 mg/dL NormalTRIG 150-199 mg/dL Borderline highTRIG 200-500 mg/dL High TRIG greater than 500 mg/dL Very highStandard traceable to the Center for Disease Conrtrol and Prevention (CDC) test method. Urea nitrogen [Mass/volume] in Serum or PlasmaOrdered By: Rodger Avila on 05-14-2024 Urea nitrogen [Mass/Vol] 29 mg/dL High 7-25 [facility] Urine microalbumin/creatinin e mass ratioOrdered By: Rodger Avila on 05-14-2024 Albumin/Creatinine DL <= 20 mg/L (U) [Mass ratio] 49.3 mg/g High 0.0-30.0 [facility] Comment on above: 30-300 mg/g indicate s an increased risk for diabetic nephropathy. Greater than 300 mg/g is consistent with clinical nephropathy. (Am. J. Kidney Disease 1995, 25:107) HbA1c HPLC (Bld) [Mass fract ion]on 04-30-2024 HbA1c (Bld) [Mass fraction] 6.5 % [facility] No Panel Informationon 04-30 Bedside Glucose 211 [facility] No Panel Informationon 02-08 OD Quality: RNFL: GCC: Status: prosthesis - no image OS Quality: fair RNFL: mild inferior, moderate superior GCC: difficult to interpret Status: stable MANUALLY TRANSCRIBED RESULTS [facility] COMPREHENSIVE METABOLIC PANE Bill 01-12-2024 Albumin [Mass/Vol] 3.9 g/dL Normal 3.2-5.3 [facility] Comment on above: Performed By: #### Frances PETE, 98595-9 #### [facility] ([id number]) [address], [address] [place] [address] ALP [Catalytic activity/Vol] 88 U/L Normal 39-130 [facility] Comment on above: Performed By: #### Frances PETE, 42278-2 #### [facility] ([id number]) [address], [address] [place] [address] ALT [Catalytic activity/Vol] 18 U/L Normal 0-31 [facility] Comment on above: Performed By: #### Frances PETE, 79450-5 #### [facility] ([id number]) [address], [address] [place] [address] Anion gap [Moles/Vol] 6 mmol/L Normal 5-15 [facility] Comment on above: Performed By: #### Frances PETE, 53387-4 #### [facility] ([id number]) [address], [address] [place] [address] AST [Catalytic activity/Vol] 22 U/L Normal 0-41 [facility] Comment on above: Performed By: #### Frances PETE, 56367-8 #### [facility] ([id number]) [address], [address] [place] [address] Bilirubin [Mass/Vol] 0.5 mg/dL Normal 0.3-1.2 [facility] Comment on above: Performed By: #### Frances PETE, 58358-1 #### [facility] ([id number]) [address], [address] [place] [address] Calcium [Mass/Vol] 9.6 mg/dL Normal 8.5-10.5 [facility] Comment on above: Performed By: #### Frances PETE, 31045-4 #### [facility] ([id number]) [address], [address] [place] [address] Chloride [Moles/Vol] 102 mmol/L Normal 98-109 [facility] Comment on above: Performed By: #### Frances PETE, 44070-2 #### [facility] ([id number]) [address], [address] [place] [address] CO2 [Moles/Vol] 32 mmol/L Normal 22-32 [facility] Comment on above: Performed By: #### Frances PETE, 13915-2 #### [facility] ([id number]) [address], [address] [place] [address] Creatinine [Mass/Vol] 1.13 mg/dL High 0.40-1.00 [facility] Comment on above: Result Comment: METH OD TRACEABLE TO IDMS STANDARD Performed By: #### Frances PETE, 69091-8 #### [facility] ([id number]) [address], [address] [place] [address] GFR/1.73 sq M.predicted among non-blacks MDRD (S/P/Bld) [Vol rate/Area] 57 mL/min/{1.73_m2} Low >59 [facility] Comment on above: Result Comment: Reported eGFR is based on the CKD-EPI 2020 equation that does not use a race coefficient. Performed By: #### Frances PETE, 74269-3 #### [facility] ([id number]) [address], [address] [place] [address] Glucose [Mass/Vol] 144 mg/dL High 65-99 [facility] Comment on above: Performed By: #### Frances PETE, 73729-4 #### [facility] ([id number]) [address], [address] [place] [address] Potassium [Moles/Vol] 4.7 mmol/L Normal 3.5-5.0 [facility] Comment on above: Performed By: #### Frances PETE, 32170-7 #### [facility] ([id number]) [address], [address] [place] [address] Protein [Mass/Vol] 7.1 g/dL Normal 6.0-8.0 [facility] Comment on above: Performed By: #### Frances PETE, 71801-5 #### [facility] ([id number]) [address], [address] [place] [address] Sodium [Moles/Vol] 140 mmol/L Normal 134-146 [facility] Comment on above: Performed By: #### Frances PETE, 02106-5 #### [facility] ([id number]) [address], [address] [place] [address] Urea nitrogen [Mass/Vol] 20 mg/dL Normal 5-23 [facility] Comment on above: Performed By: #### C , 79795-5 #### [facility] ([id number]) [address], [address] [place] [address] Comprehensive metabolic pane bill 01-12-2024 Albumin [Mass/Vol] 3.9 g/dL 3.2 - 5.3 g/dL [facility] ALP [Catalytic activity/Vol] 88 U/L 39 - 130 U/L [facility] ALT No additional P-5'-P [Catalytic activity/Vol] 18 U/L 0 - 31 U/L [facility] Anion gap [Moles/Vol] 6 mmol/L 5 - 15 mmol/L [facility] AST [Catalytic activity/Vol] 22 U/L 0 - 41 U/L [facility] Bilirubin [Mass/Vol] 0.5 mg/dL 0.3 - 1 .2 mg/dL [facility] Calcium [Mass/Vol] 9.6 mg/dL 8.5 - 10. 5 mg/dL [facility] Chloride [Moles/Vol] 102 mmol/L 98 - 10 9 mmol/L [facility] CO2 [Moles/Vol] 32 mmol/L 22 - 32 mmol/L [facility] Creatinine [Mass/Vol] 1.13 mg/dL High 0.40 - 1.00 mg/dL [facility] Comment on above: METHOD TRACEABLE TO [facility] STANDARD eGFR (CKD-EPI)non-race dependent 57 Low - PINF [facility] Comment on above: Reported eGFR is based on the CKD-EPI 202 equation that does not use a race coefficient. Glucose [Mass/Vol] 144 mg/dL High 65 - 99 mg/dL [facility] Interpretation and review of laboratory results Abnormal [facility] Potassium [Moles/Vol] 4.7 mmol/L 3.5 - 5.0 mmol/L [facility] Protein [Mass/Vol] 7.1 g/dL 6.0 - 8.0 g/dL [facility] Sodium [Moles/Vol] 140 mmol/L 134 - 146 mmol/L [facility] Urea nitrogen [Mass/Vol] 20 mg/dL 5 - 23 mg/d L [facility] HGB A1C (GLYCO-HGB)on 2023 Glucose [Mass/Vol] 180 mg/dL Normal [facility] Comment on above: Performed By: #### Frances PETE, 74114-5 #### [facility] ([id number]) [address], [address] [place] [address] HbA1c (Bld) [Mass fraction] 7.9 % High 4.4-5.6 [facility] Comment on above: Result Comment: NOTE ADA Guidelines Result HgbA1c Normal : less than 5.7 % Prediabetes : 5.7 % to 6.4 % Diabetes : > 6.4 % Use with caution in patients with abnormal hemoglobin variants as the half-life of red blood cells and in vivo glycation rates are affected. Performed By: #### Frances PETE, 13554-7 #### [facility] ([id number]) [address], [address] [place] [address] Hemoglobin A1con 01-12-2024 Average glucose Estimated from glycated hemoglobin (Bld) [Mass/Vol] 180 mg/dL [facility] HbA1c (Bld) [Mass fraction] 7.9 % High 4.4 - 5.6 % [facility] Comment on above: NOTE ADA Guidelines Result HgbA1c Normal : less than 5.7 % Prediabetes : 5.7 % to 6.4 % Diabetes : > 6.4 % Use with caution in patients with abnormal hemoglobin variants as the half-life of red blood cells and in vivo glycation rates are affected. Interpretation and review of laboratory results Abnormal [facility] - Chemistry and C hemistry - challengeon 01-12-2024 Creatinine (U) [Mass/Vol] 45.94 mg/dL [facility] Cholesterol [Mass/Vol] 186 mg/dL [facility] Cholesterol in HDL [Mass/Vol] 76 mg/dL [facility] Cholesterol in LDL [Mass/Vol] 94 mg/dL [facility] Cholesterol.total/Choles terol in HDL [Mass ratio] 2.4 {ratio} [facility] Triglyceride [Mass/Vol] 80 mg/dL F [facility] Albumin [Mass/Vol] 3.9 g/dL [facility] ALP [Catalytic activity/Vol] 88 U/L [facility] ALT [Catalytic activity/Vol] 18 U/L [facility] AST [Catalytic activity/Vol] 22 U/L [facility] Bilirubin [Mass/Vol] 0.5 mg/dL [facility] Calcium [Mass/Vol] 9.6 mg/dL [facility] Chloride [Moles/Vol] 102 mmol/L [facility] CO2 [Moles/Vol] 32 mmol/L [facility] Creatinine [Mass/Vol] 1.13 mg/dL [facility] GFR/1.73 sq M.predicted MDRD (S/P/Bld) [Vol rate/Area] 57 mL/min/{1.73_m2} [facility] Glucose [Mass/Vol] 144 mg/dL [facility] Potassium [Moles/Vol] 4.7 mmol/L [facility] Protein [Mass/Vol] 7.1 g/dL [facility] Sodium [Moles/Vol] 140 mmol/L [facility] Urea nitrogen [Mass/Vol] 20 mg/dL [facility] Laboratory - Hematology and Cell countson 01-12-2024 HbA1c (Bld) [Mass fraction] 7.9 % [facility] Lipid 1996 panelon 4 Cholesterol [Mass/Vol] 186 mg/dL 150 - 200 mg/dL [facility] [employer] Cholesterol in HDL [Mass/Vol] 76 mg/dL 39 - PINF mg/dL [facility] [employer] Comment on above: HDL <40 mg/dL - High Risk HDL > or = 40mg/dL- Desirable HDL >60 mg/dL - Negative Risk Cholesterol in LDL [Mass/Vol] 94 mg/dL NINF - 130 mg/dL [facility] Comment on above: LDL <100 mg/dL - Desirable LDL >160 mg/dL - High Risk Cholesterol in VLDL [Mass/Vol] 16 mg/dL 0 - 30 mg/dL [facility] Cholesterol.total/Choles terol in HDL [Mass ratio] 2.4 {ratio} 1.0 - 5.0 [facility] Triglyceride [Mass/Vol] 80 mg/dL 27 - 150 mg/dL [facility] Cholesterol [Mass/Vol] 186 mg/dL Normal 150-200 [facility] Comment on above: Performed By: #### Frances PETE, 28227-5 #### [facility] ([id number]) [address], [address] [place] [address] Cholesterol in HDL [Mass/Vol] 76 mg/dL Normal >39 [facility] Comment on above: Result Comment: HDL <40 mg/dL - High Risk HDL > or = 40mg/dL- Desirable HDL >60 mg/dL - Negative Risk Performed By: #### Frances PETE, 37792-3 #### [facility] ([id number]) [address], [address] [place] [address] Cholesterol in LDL [Mass/Vol] 94 mg/dL Normal <130 [facility] Comment on above: Result Comment: LDL <100 mg/dL - Desirable LDL >160 mg/dL - High Risk Performed By: #### Frances PETE, 16590-2 #### [facility] ([id number]) [address], [address] [place] [address] Cholesterol in VLDL [Mass/Vol] 16 mg/dL Normal 0-30 [facility] Comment on above: Performed By: #### Frances PETE, 31588-5 #### [facility] ([id number]) [address], [address] [place] [address] CHOLESTEROL:HDL 2.4 Normal 1.0-5.0 [facility] Comment on above: Performed By: #### Frances PETE, 86595-0 #### [facility] ([id number]) [address], [address] [place] [address] Triglyceride [Mass/Vol] 80 mg/dL Normal 27-150 [facility] Comment on above: Performed By: #### Frances PETE, 83849-2 #### [facility] ([id number]) [address], [address] [place] [address] MICROALBUMIN - ALBUMIN:CREAT ININE URINE RATIOon 01-12-2024 ALB/CREAT RATIO 43.5 mg/g creat High 0.0-30.0 [facility] Comment on above: Performed By: #### M ALBU #### [facility] ([id number]) [address], [address] [place] [address] Albumin DL <= 20 mg/L (U) [Mass/Vol] 2.0 mg/dL High 0.0-1.9 [facility] Comment on above: Performed By: #### M ALBU #### [facility] ([id number]) [address], [address] [place] [address] URINE CREAT 45.94 mg/dL Normal [facility] Comment on above: Performed By: #### M ALBU #### [facility] ([id number]) [address], [address] [place] [address] Microalbumin - Albumin: Crea tinine Urine Ratioon 01-12-2024 Albumin DL <= 20 mg/L (U) [Mass/Vol] 2.0 mg/dL High 0.0 - 1.9 mg/dL [facility] Albumin/Creatinine DL <= 1.0 mg/L (U) [Ratio] 43.5 High [facility] Creatinine (U) [Mass/Vol] 45.94 mg/dL [facility] Interpretation and review of laboratory results Abnormal [facility] No [facility]on 01-[facility] Microalbumin mg/dl 2.0 [facility] Urine Microalbumin/Creatinine Ratio 43.5 [facility] VLDL Cholesterol 16 mg/dL [facility] Estimated GFR (Non- 57 mL/min [facility] Albumin [Mass/volume] in Ser um or Plasma by Bromocresol green (BCG) dye binding methoOrdered By: Buddy Jean on 09-22-2023 Albumin BCG dye [Mass/Vol] 3.9 g/dL 3.5-5.7 [facility] Automated erythrocytes count in urine sediment (number/area)Ordered By: Buddy Jean on 09-22-2023 RBC Auto (Urine sed) [#/Area] None seen [HPF] 0-4 [facility] Automated leukocytes count i n urine sediment (number/area)Ordered By: Buddy Jean on 09-22-2023 WBC Auto (Urine sed) [#/Area] None seen [HPF] 0-4 [facility] Bilirubin Auto test strip Ql (U)Ordered By: Buddy Jean on 09-22-2023 Bilirubin Ql (U) Negative Negative [facility] Calcium [Mass/volume] in Ser um or PlasmaOrdered By: Buddy Jean on 09-22-2023 Calcium [Mass/Vol] 9.3 mg/dL 8.6-10.3 [facility] Carbon dioxide, total [Moles /volume] in Serum or PlasmaOrdered By: Buddy Jean on 09-22-2023 CO2 [Moles/Vol] 26.1 mmol/L 21.0-31.0 [facility] Chloride [Moles/volume] in S violetta or PlasmaOrdered By: Buddy Jean on 09-22-2023 Chloride [Moles/Vol] 105 mmol/L 98-107 [facility] Creatinine [Mass/volume] in Serum or PlasmaOrdered By: Buddy Jean on 09-22-2023 Creatinine [Mass/Vol] 1.39 mg/dL 0.60-1.20 [facility] Creatinine [Mass/volume] in UrineOrdered By: Buddy Jean on 09-22-2023 Creatinine (U) [Mass/Vol] 120.0 mg/dL 11.0-20.0 [facility] Erythrocyte distribution wid th Auto (RBC) [Ratio]Ordered By: Buddy Jean on 09-22-2023 Erythrocyte distribution width (RBC) [Ratio] 13.5 % 11.9-15.3 [facility] Ferritin [Mass/volume] in Se rum or PlasmaOrdered By: Buddy Jean on 09-22-2023 Ferritin [Mass/Vol] 28.4 ng/mL 11.0-306.8 [facility] Folate [Mass/volume] in Seru m or PlasmaOrdered By: Buddy Jean on 09-22-2023 Folate [Mass/Vol] 30.0 ng/mL >5.9 [facility] Comment on above: Folate reference ran ge: >5.9 ng/mlThe WHO technical consultation on folate and vitamin [id number] has determined that folate concentrations lessthan 4 ng/ml are considered deficient. Glucose [Mass/volume] in Ser um or PlasmaOrdered By: Buddy Jean on 09-22-2023 Glucose [Mass/Vol] 152 mg/dL 70-100 [facility] Comment on above: ADA recommended refe rence rangeRandom Glucose Reference Range is dependent on time and content of last meal. Glucose of more than 200 mg/dL in a nonstressed, ambulatory subject supports the diagnosis of Diabetes Mellitus. Hematocrit Auto (Bld) [Volum e fraction]Ordered By: Buddy Jean on 09-22-2023 Hematocrit (Bld) [Volume fraction] 35.9 % 34.0-46.4 [facility] Hemoglobin [Mass/volume] in BloodOrdered By: Buddy Jean on 09-22-2023 Hemoglobin (Bld) [Mass/Vol] 12.0 g/dL 11.8-15.4 [facility] Iron [Mass/volume] in Serum or PlasmaOrdered By: Buddy Jean on 09-22-2023 Iron [Mass/Vol] 83 ug/dL 50-212 [facility] Iron binding capacity [Mass/ volume] in Serum or PlasmaOrdered By: Buddy Jean on 09-22-2023 Iron binding capacity [Mass/Vol] 321 ug/dL 255-450 [facility] Iron saturation [Mass Fracti on] in Serum or PlasmaOrdered By: Buddy Jean on 09-22-2023 Iron saturation [Mass fraction] 25.9 % 20-50 [facility] Ketones Auto test strip (U) [Mass/Vol]Ordered By: Buddy Jean on 09-22-2023 Ketones (U) [Mass/Vol] Negative Negative [facility] Laboratory - UrinalysisOrder ed By: Buddy Jean on 09-22-2023 Hyaline casts LM Ql (Urine sed) 0-8 [LPF] 0-8 [facility] Leukocytes [#/volume] correc man for nucleated erythrocytes in Blood by Automated counOrdered By: Buddy Jean on 09-22-2023 WBC corrected for nucl RBC Auto (Bld) [#/Vol] 5.3 10*3/uL 3.8-11.6 [facility] MCH Auto (RBC) [Entitic mass ]Ordered By: Buddy Jean on 09-22-2023 MCH (RBC) [Entitic mass] 32.8 pg 24.7-34.3 [facility] MCHC Auto (RBC) [Mass/Vol]Or dered By: Buddy Jean on 09-22-2023 MCHC (RBC) [Mass/Vol] 33.4 g/dL 32.0-35.0 [facility] MCV Auto (RBC) [Entitic vol] Ordered By: Buddy Jean on 09-22-2023 MCV (RBC) [Entitic vol] 98.3 fL 80-100 [facility] Magnesium [Mass/volume] in S violetta or PlasmaOrdered By: Buddy Jean on 09-22-2023 Magnesium [Mass/Vol] 1.9 mg/dL 1.9-2.7 [facility] No Panel InformationOrdered By: Buddy Jean on 09-22-2023 Estimated GFR (CKD-EPI) 44.814 mL/Min [facility] Pharmacy Creatinine Clearance (Chem N/A [facility] Parathyrin.intact [Mass/volu me] in Serum or PlasmaOrdered By: Buddy Jean on 09-22-2023 Parathyrin.intact [Mass/Vol] 59.6 pg/mL [facility] Phosphate [Mass/volume] in S violetta or PlasmaOrdered By: Buddy Jean on 09-22-2023 Phosphate [Mass/Vol] 4.0 mg/dL 3.7-7.2 [facility] Platelet mean volume Auto (B ld) [Entitic vol]Ordered By: Buddy Jean on 09-22-2023 Platelet mean volume (Bld) [Entitic vol] 9.9 fL 6.3-10.7 [facility] Platelets Auto (Bld) [#/Vol] Ordered By: Buddy Jean on 09-22-2023 Platelets (Bld) [#/Vol] 253 10*3/uL 150-450 [facility] Potassium [Moles/volume] in Serum or PlasmaOrdered By: Buddy Jean on 09-22-2023 Potassium [Moles/Vol] 4.6 mmol/L 3.5-5.1 [facility] Protein Auto test strip (U) [Mass/Vol]Ordered By: Buddy Jean on 09-22-2023 Protein (U) [Mass/Vol] Negative Negative [facility] Protein [Mass/volume] in Uri neOrdered By: Buddy Miranda on 09-22-2023 Protein (U) [Mass/Vol] 9 mg/dL 0-9 [facility] RBC Auto (Bld) [#/Vol]Ordere d By: Buddy Jean on 09-22-2023 RBC (Bld) [#/Vol] 3.65 10*6/uL 3.60-5.00 [facility] Serum or plasma anion gap de terminationOrdered By: Buddy Jean on 09-22-2023 Anion gap [Moles/Vol] 13.5 mmol/L 6.0-15.0 [facility] Sodium [Moles/volume] in Ser um or PlasmaOrdered By: Buddy Jean on 09-22-2023 Sodium [Moles/Vol] 140 mmol/L 136-145 [facility] Squamous epithelial cells de tection in urine sediment by light microscopyOrdered By: Buddy Jean on 09-22-2023 Epithelial cells.squamous LM Ql (Urine sed) 3-4 [HPF] 0-2 [facility] Transferrin [Mass/volume] in Serum or PlasmaOrdered By: Buddy Jean on 09-22-2023 Transferrin [Mass/Vol] 229 mg/dL 203-362 [facility] Urate [Mass/volume] in Serum or PlasmaOrdered By: Buddy Jean on 09-22-2023 Urate [Mass/Vol] 6.8 mg/dL 2.3-6.6 [facility] Urea nitrogen [Mass/volume] in Serum or PlasmaOrdered By: Buddy Jean on 09-22-2023 Urea nitrogen [Mass/Vol] 34 mg/dL 7-25 [facility] Urine appearanceOrdered By: Buddy Jean on 09-22-2023 Appearance (U) Clear Clear [facility] Urine bacteria detection by automated methodOrdered By: Buddy Jean on 09-22-2023 Bacteria Auto Ql (U) None seen None Seen [facility] Urine colorOrdered By: Buddy Jean on 09-22-2023 Color (U) Yellow Yellow [facility] Urine glucose measurement by automated test strip (mass/volume)Ordered By: Buddy Jean on 09-22-2023 Glucose Auto test strip (U) [Mass/Vol] Normal mg/dL Normal [facility] Urine hemoglobin detection b y automated test stripOrdered By: Buddy Jean on 09-22-2023 Hemoglobin Auto test strip Ql (U) Negative Negative [facility] Urine leukocyte esterase det ection by automated test stripOrdered By: Buddy Jean on 09-22-2023 Leukocyte esterase Auto test strip Ql (U) Negative Negative [facility] Urine nitrite detection by a utomated test stripOrdered By: Buddy Jean on 09-22-2023 Nitrite Auto test strip Ql (U) Negative Negative [facility] Urine protein/creatinine rat ioOrdered By: Buddy Jean on 09-22-2023 Protein/Creatinine (U) [Ratio] 75 mg/g{Cre} 0-200 [facility] Urobilinogen Auto test strip (U) [Mass/Vol]Ordered By: Buddy Jean on 09-22-2023 Urobilinogen (U) [Mass/Vol] Normal mg/dL Normal [facility] Vitamin B12 ser/plasOrdered By: Buddy Jean on 09-22-2023 Cobalamin (Vitamin B12) [Mass/Vol] 799 pg/mL 180-914 [facility] Vitamin D+Metabolites [Mass/ volume] in Serum or PlasmaOrdered By: Buddy Jean on 09-22-2023 Vitamin D+Metabolites [Mass/Vol] 46.3 ng/mL 30-100 [facility] Comment on above: VITAMIN D STATUS 25( [place])VITAMIN D RANGE (ng/mL) Deficient <20 Insufficient 20 to <30Sufficient 30 to 100Reference: Lilly MF,Obed ROMANO, Jaimie BAKER, et al. Evaluation,treatment, and prevention of vitamin D deficiency; an Endocrine Society clinical practice guideline. JCEM. 2010; 96(7):1911-30. pH Auto test strip (U)Ordere d By: Buddy Jean on 09-22-2023 pH (U) 1.020 [pH] 1.001-1.030 [facility] pH (U) 5.5 [pH] 5.0-9.0 [facility] XR LSPINE 2_3 VIEWSon 2022 [...] by: JOSS SOARES Date: 2023-03-17 10:17 Normal [facility] Albumin [Mass/volume] in Ser um or PlasmaOrdered By: Buddy Jean on 09-20-2022 Albumin [Mass/Vol] 3.1 g/dL 3.2-5.5 [facility] Automated erythrocytes count in urine sediment (number/area)Ordered By: Buddy Jean on 09-20-2022 RBC Auto (Urine sed) [#/Area] 0-1 [HPF] 0-4 [facility] Automated leukocytes count i n urine sediment (number/area)Ordered By: Buddy Jean on 09-20-2022 WBC Auto (Urine sed) [#/Area] 1-2 [HPF] 0-4 [facility] Automated urine hyaline cast s count (number/volume)Ordered By: Buddy Jean on 09-20-2022 Hyaline casts Auto (U) [#/Vol] None seen [LPF] 0-1 [facility] Bilirubin Test strip Ql (U)O rdered By: Buddy Jean on 09-20-2022 Bilirubin Ql (U) Negative Negative [facility] Casts typing in urine sedime nt by light microscopyOrdered By: Buddy Jean on 09-20-2022 Casts LM Nom (Urine sed) None seen [LPF] None S een [facility] Color Auto (U)Ordered By: Ab bijal Jean on 09-20-2022 Color (U) Yellow Yellow [facility] Creatinine [Mass/volume] in UrineOrdered By: Buddy Jean on 09-20-2022 Creatinine (U) [Mass/Vol] 177.6 mg/dL [facility] Comment on above: No reference range e stablished Creatinine and Glomerular fi ltration rate.predicted panel (S/P/Bld)Ordered By: Buddy Jean on 09-20-2022 Creatinine [Mass/Vol] 1.09 mg/dL 0.44-1.03 [facility] Erythrocyte distribution wid th Auto (RBC) [Ratio]Ordered By: Buddy Jean on 09-20-2022 Erythrocyte distribution width (RBC) [Ratio] 14.1 % 11.9-15.3 [facility] Estimated glomerular filtrat ion rate (GFR) non- AmericanOrdered By: Buddy Jean on 09-20-2022 GFR/1.73 sq M.predicted among non-blacks MDRD (S/P/Bld) [Vol rate/Area] 52 mL/Min [facility] Hematocrit Auto (Bld) [Volum e fraction]Ordered By: Buddy Jean on 09-20-2022 Hematocrit (Bld) [Volume fraction] 35.0 % 34.0-46.4 [facility] Hemoglobin [Mass/volume] in BloodOrdered By: Buddy Jean on 09-20-2022 Hemoglobin (Bld) [Mass/Vol] 11.6 g/dL 11.8-15.4 [facility] Ketones Auto test strip (U) [Mass/Vol]Ordered By: Buddy Jean on 09-20-2022 Ketones (U) [Mass/Vol] Negative Negative [facility] Laboratory - Chemistry and C hemistry - challengeOrdered By: Buddy Jean on 09-20-2022 Magnesium [Mass/Vol] 2.0 mg/dL 1.6-2.6 [facility] MCH Auto (RBC) [Entitic mass ]Ordered By: Buddy Jean on 09-20-2022 MCH (RBC) [Entitic mass] 32.6 pg 24.7-34.3 [facility] MCHC Auto (RBC) [Mass/Vol]Or dered By: Buddy Jean on 09-20-2022 MCHC (RBC) [Mass/Vol] 33.0 g/dL 32.0-35.0 [facility] MCV Auto (RBC) [Entitic vol] Ordered By: Buddy Jean on 09-20-2022 MCV (RBC) [Entitic vol] 99.0 fL 80-100 [facility] Nitrite Test strip Ql (U)Ord ered By: Buddy Jean on 09-20-2022 Nitrite Ql (U) Negative Negative [facility] No Panel InformationOrdered By: Buddy Jean on 09-20-2022 25-Hydroxy Vitamin D Total 37.6 ng/mL 30-100 [facility] Comment on above: VITAMIN D STATUS 25( [place])VITAMIN D RANGE (ng/mL) Deficient <20 Insufficient 20 to <30Sufficient 30 to 100Reference: Lilly MF,Obed NC, Jaimie BAKER, et al. Evaluation,treatment, and prevention of vitamin D deficiency; an Endocrine Society clinical practice guideline. JCEM. 2010; 96(7):1911-30. Estimated GFR () > 60 mL/Min [facility] Comment on above: GFR estimated refere nce range: According to KDOQI guidelines, <60 ml/min/1.73m2 is sufficient to diagnose a patient with chronic kidney disease. Pharmacy Creatinine Clearance (Chem N/A [facility] Phosphate [Mass/volume] in S violetta or PlasmaOrdered By: Bdudy Jean on 09-20-2022 Phosphate [Mass/Vol] 4.3 mg/dL 2.5-4.6 [facility] Platelet mean volume Auto (B ld) [Entitic vol]Ordered By: Buddy Jean on 09-20-2022 Platelet mean volume (Bld) [Entitic vol] 10.2 fL 6.3-10.7 [facility] Platelets Auto (Bld) [#/Vol] Ordered By: Buddy Jean on 09-20-2022 Platelets (Bld) [#/Vol] 259 10*3/uL 150-450 [facility] Protein Auto test strip (U) [Mass/Vol]Ordered By: Buddy Jean on 09-20-2022 Protein (U) [Mass/Vol] Negative Negative [facility] Protein [Mass/volume] in Uri neOrdered By: Buddy Jean on 09-20-2022 Protein (U) [Mass/Vol] 12 mg/dL 0-9 [facility] RBC Auto (Bld) [#/Vol]Ordere d By: Buddy Jean on 09-20-2022 RBC (Bld) [#/Vol] 3.54 10*6/uL 3.60-5.00 [facility] Serum or plasma anion gap de terminationOrdered By: Buddy Jean on 09-20-2022 Anion gap [Moles/Vol] 13.3 mmol/L 6.0-15.0 [facility] Serum or plasma calcium maggie urement (mass/volume)Ordered By: Buddy Jean on 09-20-2022 Calcium [Mass/Vol] 9.2 mg/dL 8.2-10.2 [facility] Serum or plasma chloride britton surement (moles/volume)Ordered By: Buddy Jean on 09-20-2022 Chloride [Moles/Vol] 102 mmol/L 95-114 [facility] Serum or plasma glucose maggie urement (mass/volume)Ordered By: Buddy Jean on 09-20-2022 Glucose [Mass/Vol] 220 mg/dL 70-100 [facility] Comment on above: ADA recommended refe rence rangeRandom Glucose Reference Range is dependent on time and content of last meal. Glucose of more than 200 mg/dL in a nonstressed, ambulatory subject supports the diagnosis of Diabetes Mellitus. Serum or plasma intact parat hyroid hormone measurement (mass/volume)Ordered By: Buddy Jean on 09-20-2022 Parathyrin.intact [Mass/Vol] 66.5 pg/mL 12-88 [facility] Serum or plasma potassium me asurement (moles/volume)Ordered By: Buddy Jean on 09-20-2022 Potassium [Moles/Vol] 5.1 mmol/L 3.5-5.1 [facility] Serum or plasma sodium measu rement (moles/volume)Ordered By: Buddy Jean on 09-20-2022 Sodium [Moles/Vol] 135 mmol/L 136-146 [facility] Serum or plasma total carbon dioxide measurement (moles/volume)Ordered By: Buddy Jean on 09-20-2022 CO2 [Moles/Vol] 24.8 mmol/L 22.0-30.0 [facility] Serum or plasma urea nitroge n measurement (mass/volume)Ordered By: Buddy Jean on 09-20-2022 Urea nitrogen [Mass/Vol] 24 mg/dL 9-23 [facility] Serum or plasma uric acid me asurement (mass/volume)Ordered By: Buddy Jean on 09-20-2022 Urate [Mass/Vol] 5.7 mg/dL 2.6-7.2 [facility] Specific gravity Auto test s trip (U) [Rel density]Ordered By: Buddy Jean on 09-20-2022 Specific gravity (U) [Rel density] 1.021 1.001-1.030 [facility] Squamous epithelial cells de tection in urine sediment by light microscopyOrdered By: Buddy Jean on 09-20-2022 Epithelial cells.squamous LM Ql (Urine sed) 5-9 [HPF] 0-2 [facility] Urine bacteria detection by automated methodOrdered By: Buddy Jean on 09-20-2022 Bacteria Auto Ql (U) None seen None Seen [facility] Urine clarity by refractomet ry automatedOrdered By: Buddy Jean on 09-20-2022 Clarity Refractometry automated (U) Clear Clear [facility] Urine glucose measurement by automated test strip (mass/volume)Ordered By: Buddy Jean on 09-20-2022 Glucose Auto test strip (U) [Mass/Vol] Normal mg/dL Normal [facility] Urine hemoglobin detection b y automated test stripOrdered By: Buddy Jean on 09-20-2022 Hemoglobin Auto test strip Ql (U) Negative Negative [facility] Urine leukocyte esterase det ection by automated test stripOrdered By: Buddy Jean on 09-20-2022 Leukocyte esterase Auto test strip Ql (U) Negative Negative [facility] Urine protein/creatinine rat ioOrdered By: Buddy Jean on 09-20-2022 Protein/Creatinine (U) [Ratio] 68 mg/g{Cre} 0-200 [facility] Urobilinogen Auto test strip (U) [Mass/Vol]Ordered By: Buddy Jean on 09-20-2022 Urobilinogen (U) [Mass/Vol] Normal mg/dL Normal [facility] WBC Auto (Bld) [#/Vol]Ordere d By: Buddy Jean on 09-20-2022 WBC (Bld) [#/Vol] 5.4 10*3/uL 3.8-11.6 [facility] pH Auto test strip (U)Ordere d By: Buddy Jean on 09-20-2022 pH (U) 5.5 [pH] 5.0-9.0 [facility] Basophils Auto (Bld) [#/Vol] Ordered By: Sherrill Carlin on 07-12-2022 Basophils (Bld) [#/Vol] 0.1 10*3/uL 0.0-0.2 [facility] Basophils/100 WBC Auto (Bld) Ordered By: Sherrill Carlin on 07-12-2022 Basophils/100 WBC (Bld) 1.2 % . F [facility] Blood hemoglobin measurement (mass/volume)Ordered By: Sherrill Carlin on 07-12-2022 Hemoglobin (Bld) [Mass/Vol] 12.1 g/dL 11.8-15.4 [facility] Blood leukocytes automated c ount (number/volume)Ordered By: Sherrill Carlin on 07-12-2022 WBC (Bld) [#/Vol] 5.2 10*3/uL 4.5-11.0 [facility] Body fluid albumin measureme nt (mass/volume)Ordered By: Sherrill Carlin on 07-12-2022 Albumin (Body fld) [Mass/Vol] 3.3 g/dL 3.2-5.5 [facility] Cholesterol [Mass/volume] in Serum or PlasmaOrdered By: Sherrill Carlin on 07-12-2022 Cholesterol [Mass/Vol] 166 mg/dL 140-200 [facility] Comment on above: Chol less than 200 m g/dl low risk Chol 201-239 mg/dl borderline risk Chol 240 mg/dl and greater high risk Chol less than 200 m g/dl low riskChol 201-239 mg/dl borderline riskChol 240 mg/dl and greater high risk Cholesterol in LDL Calc [Mas s/Vol]Ordered By: Sherrill Carlin on 07-12-2022 Cholesterol in LDL [Mass/Vol] 81 mg/dL 0-100 [facility] Comment on above: LDL ATP [...] 07-12-2022 Cholesterol in VLDL [Mass/Vol] 13 mg/dL [facility] Creatinine [Mass/volume] in UrineOrdered By: Sherrill Carlin on 07-12-2022 Creatinine (U) [Mass/Vol] 262.2 mg/dL [facility] Comment on above: No reference range e stablished Creatinine and Glomerular fi ltration rate.predicted panel (S/P/Bld)Ordered By: Sherrill Carlin on 07-12-2022 Creatinine [Mass/Vol] 1.40 mg/dL 0.44-1.03 [facility] Eosinophils Auto (Bld) [#/Vo l]Ordered By: Sherrill Carlin on 07-12-2022 Eosinophils (Bld) [#/Vol] 0.5 10*3/uL 0.0-0.45 [facility] Eosinophils/100 WBC Auto (Bl d)Ordered By: Sherrill Carlin on 07-12-2022 Eosinophils/100 WBC (Bld) 9.6 % . [facility] Erythrocyte distribution wid th Auto (RBC) [Ratio]Ordered By: Sherrill Carlin on 07-12-2022 Erythrocyte distribution width (RBC) [Ratio] 13.7 % 11.9-15.3 [facility] Estimated glomerular filtrat ion rate (GFR) non- AmericanOrdered By: Sherrill Carlin on 07-12-2022 GFR/1.73 sq M.predicted among non-blacks MDRD (S/P/Bld) [Vol rate/Area] 39 mL/Min [facility] Globulin Calc (S) [Mass/Vol] Ordered By: Sherrill Carlin on 07-12-2022 Globulin (S) [Mass/Vol] 3.3 g/dL [facility] Glucose mean value [Mass/vol ume] in Blood Estimated from glycated hemoglobinOrdered By: Sherrill Carlin on 07-12-2022 Average glucose Estimated from glycated hemoglobin (Bld) [Mass/Vol] 171 mg/dL [facility] Hematocrit Auto (Bld) [Volum e fraction]Ordered By: Sherrill Carlin on 07-12-2022 Hematocrit (Bld) [Volume fraction] 36.3 % 34.0-46.4 [facility] Hemoglobin A1c percentageOrd ered By: Sherrill Carlni on 07-12-2022 HbA1c (Bld) [Mass fraction] 7.6 % 4.3-5.6 [facility] Comment on above: Increased risk for d iabetes: 5.7 - 6.4 diabetes: >6.4 glycemic control for adults with diabetes: <7.0 Increased risk for d iabetes: 5.7 - 6.4diabetes: >6.4glycemic control for adults with diabetes: <7.0 Laboratory - Hematology and Cell countsOrdered By: Sherrill Carlin on 07-12-2022 Nucleated RBC/100 WBC (Bld) [Ratio] 0.1 % 0-0.5 [facility] Lymphocytes Auto (Bld) [#/Vo l]Ordered By: Sherrill Carlin on 07-12-2022 Lymphocytes (Bld) [#/Vol] 1.0 10*3/uL 1.00-4.8 [facility] Lymphocytes/100 WBC Auto (Bl d)Ordered By: Sherrill Carlin on 07-12-2022 Lymphocytes/100 WBC (Bld) 18.5 % . [facility] MCH Auto (RBC) [Entitic mass ]Ordered By: Sherrill Carlin on 07-12-2022 MCH (RBC) [Entitic mass] 33.2 pg 24.7-34.3 [facility] MCHC Auto (RBC) [Mass/Vol]Or dered By: Sherrill Carlin on 07-12-2022 MCHC (RBC) [Mass/Vol] 33.2 g/dL 32.0-35.0 [facility] MCV Auto (RBC) [Entitic vol] Ordered By: Sherrill Carlin on 07-12-2022 MCV (RBC) [Entitic vol] 100.0 fL 80-100 [facility] Monocytes Auto (Bld) [#/Vol] Ordered By: Sherrill Carlin on 07-12-2022 Monocytes (Bld) [#/Vol] 0.6 10*3/uL 0.0-0.8 [facility] Monocytes/100 WBC Auto (Bld) Ordered By: Sherrill Carlin on 07-12-2022 Monocytes/100 WBC (Bld) 10.6 % . [facility] Neutrophils Auto (Bld) [#/Vo l]Ordered By: Sherrill Carlin on 07-12-2022 Neutrophils (Bld) [#/Vol] 3.1 10*3/uL 1.8-7.7 [facility] Neutrophils/100 WBC Auto (Bl d)Ordered By: Sherrill Carlin on 07-12-2022 Neutrophils/100 WBC (Bld) 60.1 % . [facility] No Panel InformationOrdered By: Sherrill Carlin on 07-12-2022 Estimated GFR () 48 mL/Min [facility] Comment on above: GFR estimated refere nce range: According to KDOQI guidelines, <60 ml/min/1.73m2 is sufficient to diagnose a patient with chronic kidney disease. Pharmacy Creatinine Clearance (Chem N/A [facility] Phosphate [Mass/volume] in S violetta or PlasmaOrdered By: Sherrill Carlin on 07-12-2022 Phosphate [Mass/Vol] 4.2 mg/dL 2.5-4.6 [facility] Platelet mean volume Auto (B ld) [Entitic vol]Ordered By: Sherrill Carlin on 07-12-2022 Platelet mean volume (Bld) [Entitic vol] 10.3 fL 6.3-10.7 [facility] Platelets Auto (Bld) [#/Vol] Ordered By: Sherrill Carlin on 07-12-2022 Platelets (Bld) [#/Vol] 285 10*3/uL 150-450 [facility] Protein [Mass/volume] in Ser um or PlasmaOrdered By: Sherrill Carlin on 07-12-2022 Protein [Mass/Vol] 6.6 g/dL 6.1-7.9 [facility] RBC Auto (Bld) [#/Vol]Ordere d By: Sherrill Carlin on 07-12-2022 RBC (Bld) [#/Vol] 3.63 10*6/uL 3.60-5.00 [facility] Serum or plasma alanine waldron otransferase measurement without P-5'-P (enzymatic activiOrdered By: Sherrill Carlin on 07-12-2022 ALT No additional P-5'-P [Catalytic activity/Vol] 14 U/L 10-60 [facility] Serum or plasma albumin/glob ulin mass ratioOrdered By: Sherrill Carlin on 07-12-2022 Albumin/Globulin [Mass ratio] 1.0 {ratio} [facility] Serum or plasma alkaline kerry sphatase measurement (enzymatic activity/volume)Ordered By: Sherrill Carlin on 07-12-2022 ALP [Catalytic activity/Vol] 67 U/L 32-92 [facility] Serum or plasma aspartate am inotransferase measurement (enzymatic activity/volume)Ordered By: Sherrill Carlin on 07-12-2022 AST [Catalytic activity/Vol] 22 U/L 10-42 [facility] Serum or plasma calcium maggie urement (mass/volume)Ordered By: Sherrill Carlin on 07-12-2022 Calcium [Mass/Vol] 9.0 mg/dL 8.2-10.2 [facility] Serum or plasma chloride britton surement (moles/volume)Ordered By: Sherrill Carlin on 07-12-2022 Chloride [Moles/Vol] 99 mmol/L 95-114 [facility] Serum or plasma glucose maggie urement (mass/volume)Ordered By: Sherrill Carlin on 07-12-2022 Glucose [Mass/Vol] 199 mg/dL 70-100 [facility] Comment on above: ADA recommended [...] Cholesterol in HDL [Mass/Vol] 72 mg/dL 35-85 [facility] Comment on above: HDL CHOL ATP-III CLA SSIFICATION Cardiovascular Risk HDL > or equal to 60 mg/dL LOW HDL < 40 mg/dL HIGH HDL CHOL ATP-III CLA SSIFICATION Cardiovascular RiskHDL > or equal to 60 mg/dL LOWHDL < 40 mg/dL HIGH Serum or plasma intact parat hyroid hormone measurement (mass/volume)Ordered By: Sherrill Carlin on 07-12-2022 Parathyrin.intact [Mass/Vol] 82.4 pg/mL [facility] Serum or plasma potassium me asurement (moles/volume)Ordered By: Sherrill Carlin on 07-12-2022 Potassium [Moles/Vol] 5.4 mmol/L 3.5-5.1 [facility] Serum or plasma sodium measu rement (moles/volume)Ordered By: Sherrill Carlin on 07-12-2022 Sodium [Moles/Vol] 137 mmol/L 136-146 [facility] Serum or plasma total biliru bin measurement (mass/volume)Ordered By: Sherrill Carlin on 07-12-2022 Bilirubin [Mass/Vol] 0.4 mg/dL 0.3-1.2 [facility] Serum or plasma total carbon dioxide measurement (moles/volume)Ordered By: Sherrill Carlin on 07-12-2022 CO2 [Moles/Vol] 24.6 mmol/L 22.0-30.0 [facility] Serum or plasma total choles terol/high density lipoprotein (HDL) cholesterol mass ratOrdered By: Sherrill Carlin on 07-12-2022 Cholesterol.total/Choles terol in HDL [Mass ratio] 2.3 {ratio} <5.0 [facility] Serum or plasma urea nitroge n measurement (mass/volume)Ordered By: Sherrill Carlin on 07-12-2022 Urea nitrogen [Mass/Vol] 24 mg/dL 9- [facility] Triglyceride [Mass/volume] i n Serum or PlasmaOrdered By: Sherrill Carlin on 07-12-2022 Triglyceride [Mass/Vol] 66 mg/dL 35-149 [facility] Comment on above: TRIG ATP III [...] 20 mg/L (U) [Mass/Vol] 2.3 mg/dL 0.0-1.8 [facility] Urine microalbumin/creatinin e mass ratioOrdered By: Sherrill Carlin on 07-12-2022 Albumin/Creatinine DL <= 20 mg/L (U) [Mass ratio] 8.0 mg/g 0.0-30.0 [facility] Comment on above: 30-300 mg/g indicate s an increased risk for diabetic nephropathy. Greater than 300 mg/g is consistent with clinical nephropathy. (Am. J. Kidney Disease 1994, 25:107) CULTURE, URINE, ROUTINEon CULTURE, URINE, ROUTINE SEE NOTE Normal [facility] Comment on above: Result Comment: CULTURE, URINE, ROUTINE Micro Number: [id number] Test Status: Final Specimen Source: Urine Specimen Quality: Adequate Result: No Growth Performed By: #### 3 95 #### [facility] [address], [address] [place] [address] Packing Room Inspector: Edmundo Dacosta MD ALBUMIN, RANDOM URINE W/CREA TININEon 05-13-2021 ALBUMIN, URINE 0.3 mg/dL Normal See Note: [facility] Comment on above: Result Comment: Refe rence Range: Reference Range Not established Performed By: #### 5 [id number], 31510, 7600, 6517 #### [facility] [place] [address] Packing Room Inspector: Edmundo Dacosta MD ALBUMIN/CREATININE RATIO, RANDOM URINE [...] diagnostic category. Performed By: #### 5 8984, 90099, 7600, 6517 #### [facility] [place] [address] Packing Room Inspector: Edmundo Dacosta MD Creatinine (U) [Mass/Vol] 24 mg/dL Normal 20-275 [facility] Comment on above: Performed By: #### 5 8984, 05389, 7600, 6517 #### [facility] [place] [address] Packing Room Inspector: Edmundo Dacosta MD [facility] METABOLIC PANE [facility] 05-13-2021 Albumin [Mass/Vol] 3.8 g/dL Normal 3.6-5.1 [facility] Comment on above: Performed By: #### 5 8984, 01028, 7600, 6517 #### [facility] of [place] [address] Packing Room Inspector: Edmundo Dacosta MD Albumin/Globulin [Mass ratio] 1.3 {ratio} Normal 1.0-2.5 [facility] Comment on above: Performed By: #### 5 8984, 36548, 7600, 6517 #### [facility] of [place] [address] Packing Room Inspector: Edmundo Dacosta MD ALP [Catalytic activity/Vol] 77 U/L Normal 37-153 [facility] Comment on above: Performed By: #### 5 [id number], 79449, 7600, 6517 #### [facility] of [address], [address] [place] [address] Packing Room Inspector: Edmundo Dacosta MD ALT [Catalytic activity/Vol] 12 U/L Normal 6-29 [facility] Comment on above: Performed By: #### 5 8984, 84533, 7600, 6517 #### [facility] of [address], [address] [place] [address] Packing Room Inspector: Edmundo Dacosta MD AST [Catalytic activity/Vol] 20 U/L Normal 10-35 [facility] Comment on above: Performed By: #### 5 8984, 09202, 7600, 6517 #### [facility] of [address], [address] [place] [address] Packing Room Inspector: Edmundo Dacosta MD Bilirubin [Mass/Vol] 0.6 mg/dL Normal 0.2-1.2 [facility] Comment on above: Performed By: #### 5 8984, 28441, 7600, 6517 #### [facility] of [address], [address] [place] [address] Packing Room Inspector: Edmundo Dacosta MD BUN/CREATININE RATIO NOT APPLICABLE Normal 6-22 [facility] Comment on above: Performed By: #### 5 8984, 69434, 7600, 6517 #### [facility] of [address], [address] [place] [address] Packing Room Inspector: Edmundo Dacosta MD Calcium [Mass/Vol] 9.3 mg/dL Normal 8.6-10.4 [facility] Comment on above: Performed By: #### 5 8984, 90126, 7600, 6517 #### [facility] of [address], [address] [place] [address] Packing Room Inspector: Edmundo Dacosta MD Chloride [Moles/Vol] 103 mmol/L Normal 98-110 [facility] Comment on above: Performed By: #### 5 8984, 65355, 7600, 6517 #### [facility] of [address], [address] [place] [address] Packing Room Inspector: Edmundo Dacosta MD CO2 [Moles/Vol] 27 mmol/L Normal 20-32 [facility] Comment on above: Performed By: #### 5 8984, , 0, 6517 #### [facility] of [address], [address] [place] [address] Packing Room Inspector: Edmundo Dacosta MD Creatinine [Mass/Vol] 1.03 mg/dL Normal 0.50-1.[address] [facility] Comment on above: Result Comment: For patients >49 years of age, the reference limit for Creatinine is approximately 13% higher for people identified as -[place]. Performed By: #### 5 8984, , 7599, 6517 #### [facility] of [address], [address] [place] [address] Packing Room Inspector: Edmundo Dacosta MD eGFR NON-AFR. CITIZEN OF [place] 62 mL/min/1.73m2 Normal > OR = 60 [facility] Comment on above: Performed By: #### 5 8984, , 7599, 6517 #### [facility] of [place] [address] Packing Room Inspector: Edmundo Dacosta MD GFR/1.73 sq M.predicted among blacks MDRD (S/P/Bld) [Vol rate/Area] 72 mL/min/{1.73_m2} Normal > OR = 60 [facility] Comment on above: Performed By: #### 5 8984, , 7599, 6517 #### [facility] of [address], [address] [place] [address] Packing Room Inspector: Edmundo Dacosta MD Globulin (S) [Mass/Vol] 2.9 g/dL Normal 1.9-3.7 [facility] Comment on above: Performed By: #### 5 8984, , 7599, 6517 #### [facility] of [place] [address] Packing Room Inspector: Edmundo Dacosta MD Glucose [Mass/Vol] 103 mg/dL High 65-99 [facility] Comment on above: Result Comment: Fasting reference interval For someone without known diabetes, a glucose value between 100 and 125 mg/dL is consistent with prediabetes and should be confirmed with a follow-up test. Performed By: #### 5 8984, 51164, 7600, 6517 #### [facility] [address], [address] [place] [address] Packing Room Inspector: Edmundo Dacosta MD Potassium [Moles/Vol] 5.0 mmol/L Normal 3.5-5.[address] [facility] [address] [facility] Comment on above: Performed By: #### 5 89, 94501, 7600, 6517 #### [facility] [place] [address] Packing Room Inspector: Edmundo Dacosta MD Protein [Mass/Vol] 6.7 g/dL Normal 6.1-8.1 [facility] Comment on above: Performed By: #### 5 89, , 0, 6517 #### [facility] of [address], [address] [place] [address] Packing Room Inspector: Edmundo Dacosta MD Sodium [Moles/Vol] 137 mmol/L Normal 135-146 [facility] Comment on above: Performed By: #### 5 89, 97250, 7600, 6517 #### [facility] [place] [address] Packing Room Inspector: Edmundo Dacosta MD Urea nitrogen [Mass/Vol] 23 mg/dL Normal 7-25 [facility] Comment on above: Performed By: #### 5 89, 13157, 7600, 6517 #### [facility] of [place] [address] Packing Room Inspector: Edmundo Dacosta MD LIPID PANEL, [facility] - Cholesterol [Mass/Vol] 178 mg/dL Normal <200 [facility] Comment on above: Performed By: #### 5 8984, 09445, 7600, 6517 #### [facility] of [address] [address] Packing Room Inspector: Edmundo Dacosta MD Cholesterol in HDL [Mass/Vol] 71 mg/dL Normal > OR = 50 [facility] Comment on above: Performed By: #### 5 8984, 25986, 7600, 6517 #### [facility] [address], [address] [place] [address] Packing Room Inspector: Edmundo Dacosta MD Cholesterol in LDL [Mass/Vol] [...] LDL-C. Ronald BHAKTA et al. ANTHONY. 2013;310(19): 9945-1507 (http://education.[employer].Movea/faq/ETS554) Performed By: #### 5 8984, 46567, 7600, 6517 #### [facility] [address], [address] [place] [address] Packing Room Inspector: Edmundo Dacosta MD Cholesterol.total/Choles terol in HDL [Mass ratio] 2.5 {ratio} Normal <5.0 [facility] Comment on above: Performed By: #### 5 8984, 91210, 7600, 6517 #### [facility] [address], [address] [place] [address] Packing Room Inspector: Edmundo Dacosta MD NON HDL CHOLESTEROL 107 mg/dL (calc) Normal <130 [facility] Comment on above: Result Comment: For patients with diabetes plus 1 major ASCVD risk factor, treating to a non-HDL-C goal of <100 mg/dL (LDL-C of <70 mg/dL) is considered a therapeutic option. Performed By: #### 5 8984, 66576, 7600, 6517 #### [facility] [address], [address] [place] [address] Packing Room Inspector: Edmundo Dacosta MD Triglyceride [Mass/Vol] 51 mg/dL Normal <150 [facility] Comment on above: Performed By: #### 5 8984, 83639, 7600, 6517 #### [facility] [address], [address] [place] [address] Packing Room Inspector: Edmundo Dacosta MD TSH+FREE T4on 05-13-2021 Free T4 [Mass/Vol] 0.9 ng/dL Normal 0.8-1.8 [facility] Comment on above: Performed By: #### 5 8984, 80232, 7600, 6517 #### [facility] [address], [address] [place] [address] Packing Room Inspector: Edmundo Dacosta MD TSH Qn 1.64 m[IU]/L Normal [facility] Comment on above: Result Comment: Refe rence Range > or = 20 Years 0.40-4.50 Ranges First trimester 0.26-2.66 Second trimester 0.55-2.73 Third trimester 0.43-2.91 Performed By: #### 5 8984, 21983, 7600, 6517 #### [facility] [address], [address] [place] [address] Packing Room Inspector: Edmundo Dacosta MD Estimated glomerular filtrat ion rate (GFR) non- Americanon 01-01-2021 GFR/1.73 sq M predicted among non-blacks MDRD (S/P/Bld) [Vol rate/Area] 54 mL/min/{1.73_m2} [facility] Otheron 01-01-2021 GFR/1.73 sq M.predicted MDRD (S/P/Bld) [Vol rate/Area] mL/min/{1.73_m2} [facility] Comment on above: GFR estimated refere nce range: According to KDOQI guidelines, <60 ml/min/1.73m2 is sufficient to diagnose a patient with chronic kidney disease. Pharmacy Creatinine Clearance (Chem N/A [facility] Serum or plasma calcium maggie urement (mass/volume)on 01-01-2021 Calcium [Mass/Vol] 9.1 mg/dL 8.2-10.2 [facility] Serum or plasma chloride britton surement (moles/volume)on 01-01-2021 Chloride [Moles/Vol] 104 mmol/L 95-114 [facility] Serum or plasma creatinine m easurement with calculation of estimated glomerular filtron 01-01-2021 Creatinine [Mass/Vol] 1.07 mg/dL 0.44-1.03 [facility] Serum or plasma glucose maggie urement (mass/volume)on 01-01-2021 Glucose [Mass/Vol] 78 mg/dL 70-100 [facility] Comment on above: ADA recommended refe rence rangeRandom Glucose Reference Range is dependent on time and content of last meal. Glucose of more than 200 mg/dL in a nonstressed, ambulatory subject supports the diagnosis of Diabetes Mellitus. Serum or plasma potassium me asurement (moles/volume)on 01-01-2021 Potassium [Moles/Vol] 4.4 mmol/L 3.5-5.1 [facility] Serum or plasma sodium measu rement (moles/volume)on 01-01-2021 Sodium [Moles/Vol] 138 mmol/L 136-146 [facility] Serum or plasma total carbon dioxide measurement (moles/volume)on 01-01-2021 CO2 [Moles/Vol] 25.3 mmol/L 22.0-30.0 [facility] Serum or plasma urea nitroge n measurement (mass/volume)on 01-01-2021 Urea nitrogen [Mass/Vol] 18 mg/dL 9-23 [facility] CULTURE, URINE, ROUTINEon CULTURE, URINE, ROUTINE SEE NOTE Normal [facility] Comment on above: Result Comment: CULTURE, URINE, ROUTINE Micro Number: [id number] Test Status: Final Specimen Source: NOT GIVEN Specimen Quality: Adequate Result: Less than 10,000 CFU/mL of single Gram negative organism isolated. No further testing will be performed. If clinically indicated, recollection using a method to minimize contamination, with prompt transfer to Urine Culture Transport Tube, is recommended. Performed By: #### 3 95 #### [facility], [address] [place] [id number] Packing Room Inspector: Edmundo Dacosta MD Vital Signs Date Time Vital Sign Value Performing Clinician Facility 07-09-2025 15:22-0400 Body height 165.1 cm Sherrill Carlin DO Work Phone: [facility] 07-09-2025 15:22-0400 Body mass index (BMI) [Ratio] 25.83 kg/m2 Sherrill Carlin DO Work Phone: [facility] 07-09-2025 15:22-0400 Body temperature 98.29 [degF] Sherrill Carlin DO Work Phone: [facility] 07-09-2025 15:22-0400 Body weight 70.4 kg Sherrill Carlin DO Work Phone: [facility] 07-09-2025 15:22-0400 Diastolic blood pressure 64 mm[Hg] Sherrill Carlin DO Work Phone: [facility] 07-09-2025 15:22-0400 Heart rate 90 /min Sherrill Carlin DO Work Phone: [facility] 07-09-2025 15:22-0400 Respiratory rate 18 /min Sherrill Carlin DO Work Phone: [facility] 07-09-2025 15:22-0400 SaO2% (BldA) [Mass fraction] 98 % Sherrill Carlin DO Work Phone: [facility] 07-09-2025 15:22-0400 Systolic blood pressure 120 mm[Hg] Sherrill Carlin DO Work Phone: [facility] 07-08-2025 11:12-0400 Body height 160.6 cm Sherrill Carlin DO Work Phone: [facility] 07-08-2025 11:12-0400 Body mass index (BMI) [Ratio] 27.2 kg/m2 Sherrill Carlin DO Work Phone: [facility] 07-08-2025 11:12-0400 Body weight 70.3 kg Sherrill Yuhas DO Work Phone: [facility] 07-08-2025 10:140400 Body height 159.69 cm Sherrill Yuhas DO Work Phone: [facility] 07-08-2025 10:14-0400 Body mass index (BMI) [Ratio] 27.7 kg/m2 Sherrill Yuhas DO Work Phone: [facility] 07-08-2025 10:140400 Body weight 70.8 kg Sherrill Yuhas DO Work Phone: [facility] 07-08-2025 10:14-0400 Diastolic blood pressure 68 mm[Hg] Sherrill Yuhas DO Work Phone: [facility] 07-08-2025 10:14-0400 Heart rate 84 /min Sherrill Odenhas DO Work Phone: [facility] 07-08-2025 10:14-0400 Respiratory rate 18 /min Sherrill Yuhas DO Work Phone: [facility] 07-08-2025 10:14-0400 SaO2% (BldA) [Mass fraction] 99 % Sherrill Yuhas DO Work Phone: [facility] 07-08-2025 10:14-0400 Systolic blood pressure 129 mm[Hg] Sherrill Yuhas DO Work Phone: [facility] 06-05-2025 11:07-0400 Body height 159.69 cm Sherrill Yuhas DO Work Phone: [facility] 06-05-2025 11:07-0400 Body mass index (BMI) [Ratio] 27.6 kg/m2 Sherrill Yuhas DO Work Phone: [facility] 06-05-2025 11:07-0400 Body weight 70.3 kg Sherrill Odenhas DO Work Phone: [facility] 06-05-2025 11:07-0400 Diastolic blood pressure 70 mm[Hg] Sherrill Odenhas DO Work Phone: [facility] 06-05-2025 11:07-0400 Heart rate 86 /min Sherrill Odenhas DO Work Phone: [facility] 06-05-2025 11:07-0400 Respiratory rate 18 /min Sherrill Odenhas DO Work Phone: [facility] 06-05-2025 11:07-0400 SaO2% (BldA) [Mass fraction] 97 % Sherrill Odenhas DO Work Phone: [facility] 06-05-2025 11:07-0400 Systolic blood pressure 118 mm[Hg] Sherrill Odenhas DO Work Phone: [facility] 05-20-2025 14:26-0400 Body height 159.69 cm Sherrill Odenhas DO Work Phone: [facility] 05-20-2025 14:26-0400 Body mass index (BMI) [Ratio] 30.4 kg/m2 Sherrill Odenhas DO Work Phone: [facility] 05-20-2025 14:26-0400 Body weight 77.56 kg Sherrill Odenhas DO Work Phone: [facility] 05-01-2025 10:44-0400 Body height 160.02 cm [facility] 05-01-2025 10:44-0400 Body mass index (BMI) [Ratio] 27.6 kg/m2 [facility] 05-01-2025 10:44-0400 Body weight 70.9 kg [facility] 05-01-2025 10:44-0400 Diastolic blood pressure 76 mm[Hg] [facility] 05-01-2025 10:44-0400 Heart rate 81 /min [facility] 05-01-2025 10:44-0400 Respiratory rate 18 /min [facility] 05-01-2025 10:44-0400 SaO2% (BldA) [Mass fraction] 99 % [facility] 05-01-2025 10:44-0400 Systolic blood pressure 125 mm[Hg] [facility] 02-19-2025 13:36-0400 Body height 160.02 cm [facility] 02-19-2025 13:36-0400 Body mass index (BMI) [Ratio] 27.9 kg/m2 [facility] 02-19-2025 13:36-0400 Body weight 71.5 kg [facility] 02-19-2025 13:36-0400 Diastolic blood pressure 70 mm[Hg] [facility] 02-19-2025 13:36-0400 Heart rate 83 /min [facility] 02-19-2025 13:36-0400 Respiratory rate 16 /min [facility] 02-19-2025 13:36-0400 SaO2% (BldA) [Mass fraction] 98 % [facility] 02-19-2025 13:36-0400 Systolic blood pressure 114 mm[Hg] [facility] 01-29-2025 13:24-0500 Body height 160.02 cm [facility] 01-29-2025 13:24-0500 Body mass index (BMI) [Ratio] 27.3 kg/m2 [facility] 01-29-2025 13:24-0500 Body weight 70.1 kg [facility] 01-29-2025 13:24-0500 Diastolic blood pressure 70 mm[Hg] [facility] 01-29-2025 13:24-0500 Heart rate 86 /min [facility] 01-29-2025 13:24-0500 Respiratory rate 18 /min [facility] 01-29-2025 13:24-0500 SaO2% (BldA) [Mass fraction] 97 % [facility] 01-29-2025 13:24-0500 Systolic blood pressure 111 mm[Hg] [facility] 11-19-2024 13:42-0500 Body height 165.1 cm Sherrill Jesusmatt DO Work Phone: [facility] 11-19-2024 13:42-0500 Body mass index (BMI) [Ratio] 25.56 kg/m2 Sherrill Lees DO Work Phone: [facility] 11-19-2024 13:42-0500 Body temperature 97.59 [degF] Sherrill Lees DO Work Phone: [facility] 11-19-2024 13:42-0500 Body weight 69.67 kg Sherrill Lees DO Work Phone: [facility] 11-19-2024 13:42-0500 Diastolic blood pressure 70 mm[Hg] Sherrill Lees DO Work Phone: [facility] 11-19-2024 13:42-0500 Heart rate 84 /min Sherrill Lees DO Work Phone: [facility] 11-19-2024 13:42-0500 Respiratory rate 18 /min Sherrill Lees DO Work Phone: [facility] 11-19-2024 13:42-0500 SaO2% (BldA) [Mass fraction] 98 % Sherrill Lees DO Work Phone: [facility] 11-19-2024 13:42-0500 Systolic blood pressure 110 mm[Hg] Sherrill Lees DO Work Phone: [facility] 11-14-2024 11:21-0500 Body height 160.02 cm [facility] 11-14-2024 11:21-0500 Body mass index (BMI) [Ratio] 27.3 kg/m2 [facility] 11-14-2024 11:21-0500 Body weight 70.08 kg [facility] 11-14-2024 11:21-0500 Diastolic blood pressure 78 mm[Hg] [facility] 11-14-2024 11:21-0500 Heart rate 83 /min [facility] 11-14-2024 11:21-0500 Respiratory rate 18 /min [facility] 11-14-2024 11:21-0500 SaO2% (BldA) [Mass fraction] 99 % [facility] 11-14-2024 11:21-0500 Systolic blood pressure 137 mm[Hg] [facility] 10-09-2024 11:48-0500 Body height 160.02 cm Sherrill Lees DO Work Phone: [facility] 10-09-2024 11:48-0500 Body mass index (BMI) [Ratio] 27.1 kg/m2 Sherrill Yuhas DO Work Phone: [facility] 10-09-2024 11:48-0500 Body weight 69.51 kg Sherrill Odenhas DO Work Phone: [facility] 10-09-2024 11:48-0500 Diastolic blood pressure 68 mm[Hg] Sherrill Odenhas DO Work Phone: [facility] 10-09-2024 11:48-0500 Heart rate 87 /min Sherrill Odenhas DO Work Phone: [facility] 10-09-2024 11:48-0500 Respiratory rate 18 /min Sherrill Yuhas DO Work Phone: [facility] 10-09-2024 11:48-0500 SaO2% (BldA) [Mass fraction] 98 % Sherrill Odenhas DO Work Phone: [facility] 10-09-2024 11:48-0500 Systolic blood pressure 109 mm[Hg] Sherrill Yuhas DO Work Phone: [facility] 09-25-2024 08:29-0400 Body height 160.02 cm DO Sherrill Yuhas Work Phone: [facility] 09-25-2024 08:29-0400 Body mass index (BMI) [Ratio] 26.9 kg/m2 DO Sherrill Yuhas Work Phone: [facility] 09-25-2024 08:29-0400 Body temperature 96.5 [degF] DO Sherrill Yuhas Work Phone: [facility] 09-25-2024 08:29-0400 Body weight 68.94 kg DO Sherrill Lees Work Phone: [facility] 09-25-2024 08:29-0400 Diastolic blood pressure 71 mm[Hg] DO Sherrill Lees Work Phone: [facility] 09-25-2024 08:29-0400 Heart rate 80 /min DO Sherrill Lees Work Phone: [facility] 09-25-2024 08:29-0400 Respiratory rate 16 /min DO Sherrill Lees Work Phone: [facility] 09-25-2024 08:29-0400 SaO2% (BldA) [Mass fraction] 100 % DO Sherrill Carlin Work Phone: [facility] 09-25-2024 08:29-0400 Systolic blood pressure 113 mm[Hg] DO Sherrill Carlin Work Phone: [facility] 08-28-2024 10:14-0400 Body height 160.02 cm [facility] 08-28-2024 10:14-0400 Body mass index (BMI) [Ratio] 27.3 kg/m2 [facility] 08-28-2024 10:14-0400 Body weight 69.88 kg [facility] 08-28-2024 10:14-0400 Diastolic blood pressure 73 mm[Hg] [facility] 08-28-2024 10:14-0400 Heart rate 85 /min [facility] 08-28-2024 10:14-0400 Respiratory rate 18 /min [facility] 08-28-2024 10:14-0400 SaO2% (BldA) [Mass fraction] 99 % [facility] 08-28-2024 10:14-0400 Systolic blood pressure 111 mm[Hg] [facility] 07-03-2024 09:16-0400 Body height 160.02 cm DO Sherrill Yuhas Work Phone: [facility] 07-03-2024 09:16-0400 Body mass index (BMI) [Ratio] 27.6 kg/m2 DO Sherrill Yuhas Work Phone: [facility] 07-03-2024 09:16-0400 Body weight 70.59 kg DO Sherrill Yuhas Work Phone: [facility] 06-27-2024 09:58-0400 Body height 160.02 cm DO Sherrill Yuhas Work Phone: [facility] 06-27-2024 09:58-0400 Body mass index (BMI) [Ratio] 27.6 kg/m2 DO Sherrill Yuhas Work Phone: [facility] 06-27-2024 09:58-0400 Body weight 70.81 kg DO Sherrill Yuhas Work Phone: [facility] 06-27-2024 09:58-0400 Diastolic blood pressure 72 mm[Hg] DO Sherrill Yuhas Work Phone: [facility] 06-27-2024 09:58-0400 Heart rate 90 /min DO Sherrill Cecillehas Work Phone: [facility] 06-27-2024 09:58-0400 Respiratory rate 18 /min DO Sherrill Odenhas Work Phone: [facility] 06-27-2024 09:58-0400 SaO2% (BldA) [Mass fraction] 98 % DO Sherrill Yuhas Work Phone: [facility] 06-27-2024 09:58-0400 Systolic blood pressure 126 mm[Hg] DO Sherrill Yuhas Work Phone: [facility] 05-15-2024 09:30-0400 Body height 160.02 cm DO Sherrill Yuhas Work Phone: [facility] 05-15-2024 09:30-0400 Body mass index (BMI) [Ratio] 28.3 kg/m2 DO Sherrill Carlin Work Phone: [facility] 05-15-2024 09:30-0400 Body weight 72.63 kg DO Sherrill Carlin Work Phone: [facility] 05-15-2024 09:30-0400 Diastolic blood pressure 71 mm[Hg] DO Sherrill Carlin Work Phone: [facility] 05-15-2024 09:30-0400 Respiratory rate 18 /min DO Sherrill Carlin Work Phone: [facility] 05-15-2024 09:30-0400 SaO2% (BldA) [Mass fraction] 98 % DO Sherrill Carlin Work Phone: [facility] 05-15-2024 09:30-0400 Systolic blood pressure 114 mm[Hg] DO Sherrill Carlin Work Phone: [facility] 04-30-2024 15:01-0400 Body height 160.02 cm [facility] 04-30-2024 15:01-0400 Body mass index (BMI) [Ratio] 29 kg/m2 [facility] 04-30-2024 15:01-0400 Body weight 74.38 kg [facility] 04-30-2024 15:01-0400 Diastolic blood pressure 80 mm[Hg] [facility] 04-30-2024 15:01-0400 Heart rate 98 /min [facility] 04-30-2024 15:01-0400 Respiratory rate 18 /min [facility] 04-30-2024 15:01-0400 SaO2% (BldA) [Mass fraction] 98 % [facility] 04-30-2024 15:01-0400 Systolic blood pressure 127 mm[Hg] [facility] 04-03-2024 10:44-0400 Body height 160.02 cm [facility] 04-03-2024 10:44-0400 Body mass index (BMI) [Ratio] 30.2 kg/m2 [facility] 04-03-2024 10:44-0400 Body weight 77.59 kg [facility] 04-03-2024 10:44-0400 Diastolic blood pressure 67 mm[Hg] [facility] 04-03-2024 10:44-0400 Heart rate 86 /min [facility] 04-03-2024 10:44-0400 Respiratory rate 18 /min [facility] 04-03-2024 10:44-0400 SaO2% (BldA) [Mass fraction] 98 % [facility] 04-03-2024 10:44-0400 Systolic blood pressure 146 mm[Hg] [facility] 01-12-2024 09:40-0500 Body height 165.1 cm Sherrill Carlin DO Work Phone: [facility] 01-12-2024 09:40-0500 Body mass index (BMI) [Ratio] 27.97 kg/m2 Sherrill Carlin DO Work Phone: [facility] 01-12-2024 09:40-0500 Body temperature 97.81 [degF] Sherrill Lees DO Work Phone: [facility] 01-12-2024 09:40-0500 Body weight 76.25 kg Sherrill Cecillesheilas DO Work Phone: [facility] 01-12-2024 09:40-0500 Diastolic blood pressure 66 mm[Hg] Sherrill Carlin DO Work Phone: [facility] 01-12-2024 09:40-0500 Heart rate 91 /min Sherrill Lees DO Work Phone: [facility] 01-12-2024 09:40-0500 SaO2% (BldA) [Mass fraction] 97 % Sherrill Lees DO Work Phone: [facility] 01-12-2024 09:40-0500 Systolic blood pressure 110 mm[Hg] Sherrill Carlin DO Work Phone: [facility] 09-26-2023 09:00-0400 Body height 165.1 cm Buddy Miranda Other [employer] Other 09-26-2023 09:00-0400 Body mass index (BMI) [Ratio] 28.35 kg/m2 Buddy Miranda Other [employer] Other 09-26-2023 09:00-0400 Body temperature 96.3 [degF] Buddy Miranda Other [employer] Other 09-26-2023 09:00-0400 Body weight 77.29 kg Buddy Miranda Other [employer] Other 09-26-2023 09:00-0400 Diastolic blood pressure 84 mm[Hg] Buddy Miranda Other [employer] Other 09-26-2023 09:00-0400 Respiratory rate 16 /min Buddy Miranda Other [employer] Other 09-26-2023 09:00-0400 Systolic blood pressure 138 mm[Hg] Buddy Miranda Other [employer] Other 09-21-2022 10:00-0400 Body height 165.1 cm Buddy Miranda Other [employer] Other 09-21-2022 10:00-0400 Body mass index (BMI) [Ratio] 26.76 kg/m2 Buddy Miranda Other [employer] Other 09-21-2022 10:00-0400 Body temperature 97.5 [degF] Buddy Miranda Other [employer] Other 09-21-2022 10:00-0400 Body weight 72.94 kg Buddy Miranda Other [employer] Other 09-21-2022 10:00-0400 Diastolic blood pressure 79 mm[Hg] Buddy Miranda Other [employer] Other 09-21-2022 10:00-0400 Respiratory rate 18 /min Buddy Miranda Other [employer] Other 09-21-2022 10:00-0400 SaO2% (BldA) [Mass fraction] 98 % Buddy Miranda Other [employer] Other 09-21-2022 10:00-0400 Systolic blood pressure 133 mm[Hg] Buddy Miranda Other [employer] Other Encounters Encounter Date Encounter Type Care Provider Facility Start: 07-16-2025 End: 07-16-2025 Refill Sherrill Carlin DO Work Phone: [facility] Comment on above: Mixed hyperlipidemia Start: 07-09-2025 End: 07-09-2025 Encounter for general adult medical examination with abnormal findings Sherrill Carlin DO Work Phone: [facility] [email or web address] [facility] Start: 07-09-2025 End: 07-09-2025 Periodic preventive med est patient 40-64yrs Sherrill Carlin DO Work Phone: [facility] Comment on above: Abnormal wellness ex am (Primary Dx); Mixed hyperlipidemia; At risk for coronary artery disease; Encounter for screening mammogram for malignant neoplasm of breast; 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 Start: 07-09-2025 End: 07-09-2025 ambulatory SHERRILL CARLNI [facility] Start: 07-08-2025 End: 07-08-2025 ambulatory Sherrill Carlin DO Work Phone: [facility] Work Phone: Start: 07-08-2025 End: 07-08-2025 Patient encounter procedure Tony Delarosa -[facility] Work Phone: Start: 07-08-2025 End: 07-08-2025 ambulatory Sherrill Carlin DO Work Phone: [facility] Work Phone: Start: 07-08-2025 End: 07-08-2025 Patient encounter procedure Apolinar Kelly MD -[facility] Work Phone: Start: 06-05-2025 End: 06-05-2025 ambulatory Sherrill Carlin DO Work Phone: [facility] Work Phone: Start: 06-05-2025 End: 06-05-2025 Patient encounter procedure Rodger Avila MULTI CRAFT MAINTENANCE TECHNICIAN-C [facility] Work Phone: Start: 06-03-2025 End: 06-03-2025 Patient encounter procedure Rodger Avila MULTI CRAFT MAINTENANCE TECHNICIAN-C -[facility] [place] Work Phone: Start: 06-03-2025 End: 06-03-2025 ambulatory Sherrill Carlin DO Work Phone: [facility] Work Phone: Start: 05-20-2025 End: 05-20-2025 Patient encounter procedure Tony Delarosa -[facility] Work Phone: Start: 05-01-2025 End: 05-01-2025 ambulatory [facility] Work Phone: Start: 05-01-2025 End: 05-01-2025 Patient encounter procedure [facility] Work Phone: Start: 04-03-2025 End: 04-03-2025 Celso Thakur MD Work Phone: [facility] Start: 03-13-2025 End: 03-13-2025 Refill [facility] DO [facility] Comment on above: Mixed hyperlipidemia Start: 02-20-2025 End: 02-20-2025 Office outpatient visit 25 minutes Sherrill Thakur MD Work Phone: [facility] Comment on above: 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, indeterminate stage (Primary Dx); Anophthalmos of right eye; 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 (CMS-HCC); Pseudophakia of left eye Start: 02-20-2025 End: 02-20-2025 ambulatory [facility] Op[facility] Comment on above: 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, indeterminate stage Start: 02-19-2025 End: 02-19-2025 ambulatory [facility] Work Phone: Start: 02-19-2025 End: 02-19-2025 Patient encounter procedure [facility] Work Phone: Start: 01-29-2025 End: 01-29-2025 ambulatory [facility] Work Phone: Start: 01-29-2025 End: 01-29-2025 Patient encounter procedure [facility] Work Phone: Start: 11-19-2024 End: 11-19-2024 Office outpatient visit 25 minutes Sherrill Cariln DO Work Phone: [facility] Comment on above: Spinal stenosis of l umbar region with neurogenic claudication (Primary Dx); Osteoarthritis of right patellofemoral joint; Mixed hyperlipidemia Start: 11-19-2024 End: 11-19-2024 [facility] Start: 11-14-2024 End: 11-14-2024 Patient encounter procedure [facility] Work Phone: Start: 10-29-2024 End: 10-29-2024 Refill Sherrill Carlin DO Work Phone: [facility] Comment on above: Mixed hyperlipidemia Start: 10-09-2024 End: 10-09-2024 ambulatory Sherrill Carlin DO Work Phone: [facility] Work Phone: Start: 10-09-2024 End: 10-09-2024 Patient encounter procedure Sherrill Carlin DO Work Phone: [facility] Work Phone: Start: 10-01-2024 End: 10-01-2024 Bamboo flowsheet Ghanshyam A Felter COOPERATIVE EDUCATION COORDINATOR-STONECUTTER APPRENTICE HAND Work Phone: [facility] Start: 10-01-2024 End: 10-01-2024 Bamboo flowsheet Ghanshyam A Felter COOPERATIVE EDUCATION COORDINATOR-STONECUTTER APPRENTICE HAND Work Phone: [facility] Start: 10-01-2024 End: 10-01-2024 Office outpatient visit 15 minutes Ghanshyam A Felter COOPERATIVE EDUCATION COORDINATOR-STONECUTTER APPRENTICE HAND Work Phone: [facility] Comment on above: Other atopic dermati tis; Other seborrheic dermatitis; EIC (epidermal inclusion cyst) Start: 10-01-2024 End: 10-01-2024 ambulatory GHANSHYAM A FELTER Not Available Start: 09-25-2024 End: 09-25-2024 ambulatory DO Sherrill Carlin Work Phone: [facility] Work Phone: Start: 09-25-2024 End: 09-25-2024 Patient encounter procedure DO Sherrill Carlin Work Phone: [facility] [place] Work Phone: Start: 09-21-2024 End: 09-21-2024 Patient encounter procedure DO Sherrill Carlin Work Phone: [facility] [place] Work Phone: Start: 09-21-2024 End: 09-21-2024 ambulatory Buddy Miranda Facility:[facility] Start: 09-10-2024 End: 09-10-2024 ambulatory [facility] Comment on above: 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 (CMS-HCC) Start: 09-10-2024 End: 09-10-2024 Office outpatient visit 15 minutes Shefali Bailey MD Work Phone: [facility] Comment on above: 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 ([facility]) (Primary Dx); Anophthalmos of right eye; Primary open angle glaucoma of left eye, indeterminate stage Start: 09-10-2024 End: 09-10-2024 ambulatory SHEFALI BAILEY [facility] Start: 08-28-2024 End: 08-28-2024 ambulatory [facility] Work Phone: Start: 08-28-2024 End: 08-28-2024 Patient encounter procedure [facility] Work Phone: Start: 08-22-2024 End: 08-22-2024 Refill Sherrill Carlin DO Work Phone: [facility] Comment on above: Mixed hyperlipidemia Start: 07-03-2024 End: 07-03-2024 ambulatory DO Sherrill Carlin Work Phone: [facility] Work Phone: Start: 07-03-2024 End: 07-03-2024 Patient encounter procedure DO Sherrill Carlin Work Phone: [facility] Work Phone: Start: 06-27-2024 End: 06-27-2024 ambulatory DO Sherrill Carlin Work Phone: [facility] Work Phone: Start: 06-27-2024 End: 06-27-2024 Patient encounter procedure DO Sherrill Carlin Work Phone: [facility] Work Phone: Start: 05-21-2024 End: 05-21-2024 Refedison Gregg CMA [facility] Comment on above: Diabetic peripheral neuropathy ([facility] Start: 05-15-2024 End: 05-15-2024 ambulatory DO Sherrill Carlin Work Phone: [facility] Work Phone: Start: 05-15-2024 End: 05-15-2024 Patient encounter procedure DO Sherrill Carlin Work Phone: [facility] Work Phone: Start: 05-14-2024 End: 05-14-2024 ambulatory DO Sherrill Carlin Work Phone: [facility] Work Phone: Start: 05-14-2024 End: 05-14-2024 Patient encounter procedure DO Sherrill Carlin Work Phone: [facility] [place] Work Phone: Start: 05-02-2024 End: 05-02-2024 ambulatory [facility] Work Phone: Start: 05-02-2024 End: 05-02-2024 Patient encounter procedure [facility] Work Phone: Start: 05-01-2024 End: 05-10-2024 Telephone encounter Sherrill Carlin DO Work Phone: [facility] Start: 04-30-2024 End: 04-30-2024 ambulatory [facility] Work Phone: Start: 04-30-2024 End: 04-30-2024 Patient encounter procedure [facility] Work Phone: Start: 04-25-2024 End: 04-25-2024 ambulatory [facility] Work Phone: Start: 04-25-2024 End: 04-25-2024 Patient encounter procedure [facility] Work Phone: Start: 04-12-2024 End: 04-12-2024 Patient encounter procedure [facility] Work Phone: Start: 04-11-2024 Non-patient / Non-visit [facility] Work Phone: Start: 04-03-2024 End: 04-03-2024 ambulatory [facility] Work Phone: Start: 04-03-2024 End: 04-03-2024 Patient encounter procedure [facility] Work Phone: Start: 03-14-2024 End: 03-14-2024 Refill Sherrill Carlin DO Work Phone: [facility] Comment on above: Mixed hyperlipidemia Start: 02-28-2024 Refill Sherrill Vidal O Work Phone: [facility] Comment on above: Diabetic peripheral neuropathy ([facility]) Start: 02-09-2024 End: 02-09-2024 [facility] Comment on above: 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, indeterminate stage Start: 02-09-2024 End: 02-09-2024 Office outpatient visit 25 minutes Sherrill Thakur MD Work Phone: [facility] Comment on above: 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, indeterminate stage (Primary Dx); Pseudophakia of left eye; 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 ([facility]-HCC); Anophthalmos of right eye Start: 01-30-2024 Telephone encounter Carey Daniels MA [facility] Comment on above: Preventative Screeni ng Start: 01-12-2024 End: 01-13-2024 ambulatory SHERRILL CARLIN [facility] Start: 01-12-2024 Non-patient / Non-visit [facility] [employer] Work Phone: Start: 01-12-2024 End: 01-12-2024 Office outpatient visit 25 minutes Sherrill Carlin DO Work Phone: [facility] Comment on above: 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 ([facility]) (Primary Dx); Mixed hyperlipidemia; Stage 3a chronic kidney disease ([facility]) Start: 01-11-2024 Refill Juarez Carmina hawkins DO Work Phone: [facility] Comment on above: Chronic hyperkalemia Start: 12-13-2023 Refill Sherrill Carlin D O Work Phone: [facility] Comment on above: Diabetic peripheral neuropathy ([facility]) Start: 09-26-2023 End: 09-26-2023 ambulatory Buddy Miranda Other [place] [employer] Other Start: 09-26-2023 Office outpatient vi sit 25 minutes Buddy Miranda [facility] Start: 09-22-2023 End: 09-22-2023 ambulatory DO Sherrill Carlin Work Phone: [facility] Work Phone: Start: 09-22-2023 End: 09-22-2023 Patient encounter procedure DO Sherrill Carlin Work Phone: [facility] [place] Work Phone: Start: 03-17-2023 End: 03-18-[address] SHERRILL CARLIN Facility: Start: 09-21-2022 End: 09-21-2022 ambulatory Buddy Miranda Other [place] [employer] Other Start: 09-21-2022 Office outpatient vi sit 15 minutes [facility] Start: 09-20-2022 End: 09-20-2022 ambulatory DO Sherrill Carlin Work Phone: [facility] Work Phone: Start: 09-20-2022 End: 09-20-2022 Patient encounter procedure DO Sherrill Carlin Work Phone: [facility] [place] Start: 07-12-2022 End: 07-12-2022 Patient encounter procedure DO Sherrill Carlin Work Phone: [facility] [place] Start: 01-01-2021 End: 01-01-2021 Patient encounter procedure [...] Urine by Test strip Sherrill Carlin DO [employer] Phone: Plan of Treatment Date Care Activity Detail Author Start: 01-03-2030 DTaP,Tdap and Td Vaccines (2 - Td or Tdap) DTaP,Tdap and Td Vaccines (2 - Td or Tdap) [facility] Start: 06-07-2027 Screening for malign ant neoplasm of colon [facility] Start: 07-09-2026 Adult BMI Screening Adult BMI Screen ing [facility] Start: 07-09-2026 Depression Screening Depression Scre ening [facility] Start: 03-13-2026 Statin Use: Diabetic Statin Use: Krista betic [facility] Start: 02-24-2026 End: 02-24-2026 Patient encounter procedure 02/24/2026 3:10 PM EDT [facility] [address] [place] [id number] Sherrill Thakur MD [address] [place] [address] [facility] Start: 02-24-2026 End: 02-24-2026 ambulatory 02/24/2026 3:00 PM EDT Ophthalmology Imaging [facility] [address] [place] [address] [facility] Start: 02-20-2026 Glaucoma screening Diabetic Op hthalmology Exam [facility] Start: 02-20-2026 Tobacco Screening Tobacco Screening [facility] Start: 11-19-2025 Adult BMI Screening Adult BMI Screen ing [facility] Start: 11-19-2025 Tobacco Screening Tobacco Screening [facility] Start: 10-01-2025 End: 10-01-2025 Patient encounter procedure 10/01/2025 9:50 AM EST Office Visit [facility] [address] [place] [address] Wayne Ghanshyam Musa, COOPERATIVE EDUCATION COORDINATOR-STONECUTTER APPRENTICE HAND [address] [place] [address] [facility] Start: 09-16-2025 End: 09-16-2025 Patient encounter procedure [facility] Start: 09-10-2025 Glaucoma screening Diabetic Op hthalmology Exam [facility] Start: 09-10-2025 Tobacco Screening Tobacco Screening [facility] Start: 07-29-2025 Influenza vaccination Influenza Vacc ine [facility] Start: 07-09-2025 End: 07-09-2026 CT Heart and Coronary arteries for calcium scoring WO contrast CT heart without contrast including scoring Imaging Routine At risk for coronary artery disease Expected: 07/09/2025, Expires: 07/09/2026 [facility] Comment on above: Expected: 07/09/2025 , Expires: 07/09/2026 Start: 07-09-2025 End: 07-09-2026 DBT Breast - bilateral screening Mammography screening bilateral with CAD Imaging Routine Encounter for screening mammogram for malignant neoplasm of breast Expected: 07/09/2025, Expires: 07/09/2026 [facility] Comment on above: Expected: 07/09/2025 , Expires: 07/09/2026 Start: 02-20-2025 End: 02-20-2025 ambulatory 02/20/2025 3:20 PM EDT Ophthalmology Imaging [facility] [address] [place] [address] [facility] Start: 02-20-2025 End: 02-20-2025 Patient encounter procedure 02/20/2025 3:20 PM EDT Office Visit [facility] [address] [place] [address] Sherrill Thakur MD [address] [place] [address] [facility] Start: 02-08-2025 Glaucoma screening Diabetic Op hthalmology Exam [facility] Start: 02-08-2025 Tobacco Screening Tobacco Screening [facility] Start: 01-12-2025 Adult BMI Screening Adult BMI Screen ing [facility] Start: 01-12-2025 Depression Screening Depression Scre ening [facility] Start: 01-12-2025 Tobacco Screening Tobacco Screening [facility] Start: 01-12-2025 Urine screening for protein Urine Microalbumin [facility] Start: 12-13-2024 Statin Use: Diabetic Statin Use: Krista betic [facility] Start: 11-14-2024 End: 11-14-2024 Patient encounter procedure 11/14/2024 2:00 PM EST [facility] [address] [place] [address] Sherrill Carlin, [address] [place] [address] [facility] Start: 10-01-2024 End: 10-01-2024 Patient encounter procedure 10/01/2024 9:50 AM EST Office Visit [facility] [address] [place] [address] Ghanshyam Black, COOPERATIVE EDUCATION COORDINATOR-STONECUTTER APPRENTICE HAND [address] [place] [address] Arrived [facility] Comment on above: Arrived Start: 09-10-2024 End: 09-10-2024 Patient encounter procedure 09/10/2024 3:30 PM EDT Office Visit [facility] [address] [place] [id number] Shefali Bailey MD [address] [place], [place] [id number] [facility] Start: 09-05-2024 Glaucoma screening Diabetic Op hthalmology Exam [facility] Start: 09-05-2024 Tobacco Screening Tobacco Screening [facility] Start: 08-23-2024 Adult BMI Screening Adult BMI Screen ing [facility] Start: 08-23-2024 Depression Screening Depression Scre ening [facility] Start: 07-29-2024 COVID-19 Vaccine ( season) COVID-19 Vaccine () [facility] Start: 07-29-2024 Influenza vaccination N [facility] Start: 05-14-2024 Insulin C-peptide measurement [facility] Start: 03-03-2024 Diabetic foot examination Diabetic Foot Exam [facility] Start: 03-03-2024 Urine screening for protein Urine Microalbumin [facility] Start: 02-09-2024 End: 02-09-2024 Patient encounter procedure 02/09/2024 8:10 AM EDT Office Visit [facility] [address] [place] [id number] Sherrill Thakur MD [address] [place], [place] [id number] [phone] [facility] Start: 02-09-2024 End: 02-09-2024 ambulatory 02/09/2024 8:00 AM EDT [facility] [address] [place] [address] [facility] Start: 01-12-2024 End: 01-12-2024 Patient encounter procedure 01/12/2024 9:20 AM EST Office Visit [facility] [address] [place] [address] Sherrill Carlin, DO [address] [place] [address] [facility] Start: 07-29-2023 COVID-19 Vaccine ( season) COVID-19 Vaccine ( season) [facility] Start: 07-29-2023 Influenza vaccination Influenza Vacc ine [facility] Start: 12-08-2021 Screening for malign ant neoplasm of colon [facility] Start: 2008 Screening for malign ant neoplasm of breast Mammogram [facility] Start: 1998 Screening for malign ant neoplasm of cervix [facility] Start: 1989 Screening for malign ant neoplasm of cervix Pap Smear [facility] Start: 1986 Adult BMI Follow Up Plan Adult BMI Follow Up Plan [facility] Start: 1968 Screening for malign ant neoplasm of colon [facility] Comprehensive metabo lic 2000 panel - Serum or Plasma [facility] Comprehensive metabo lic 2000 panel - Serum or Plasma [facility] End: 07-09-2026 Comprehensive metabolic 2000 panel - Serum or Plasma Comprehensive metabolic panel Lab Routine Mixed hyperlipidemia 1 Occurrences starting 07/09/2025 until 07/09/2026 [facility] Work Phone: Comment on above: 1 Occurrences starti ng 07/09/2025 until 07/09/2026 Insulin C-peptide measurement [facility] End: 07-09-2026 Lipid 1996 panel - Serum or Plasma Lipid profile Lab Routine Mixed hyperlipidemia 1 Occurrences starting 07/09/2025 until 07/09/2026 [facility] Comment on above: 1 Occurrences starti ng 07/09/2025 until 07/09/2026 Patient Education Diabetes and diet [facility] Work Phone: [facility] Immunizations Immunization Date Immunization Notes Care Provider Fa cility 11-27-2024 influenza virus vacc ine, unspecified formulation Sherrill Carlin DO Work Phone: [facility] 11-09-2023 influenza, injectabl e, quadrivalent, preservative free Sherrill Lees DO Work Phone: [facility] 11-09-2023 influenza virus vacc ine, unspecified formulation Sherrill Lees DO Work Phone: [facility] 09-23-2022 zoster vaccine recombinant Sherrill Lees DO Work Phone: [facility] 07-14-2022 zoster vaccine recombinant Sherrill Carlin DO Work Phone: [facility] 01-03-2020 tetanus toxoid, redu shane diphtheria toxoid, and acellular pertussis vaccine, adsorbed Sherrill Carlin DO Work Phone: [facility] 10-04-2019 Influenza, injectabl e, Madin Castana Canine Kidney, quadrivalent with preservative Sherrill Lees DO Work Phone: [facility] 10-04-2019 influenza virus vacc ine, unspecified formulation Sherrill Lees DO Work Phone: [facility] 10-24-2018 Influenza, injectabl e, Madin Vikki Canine Kidney, preservative free, quadrivalent Sherrill Odnehas DO Work Phone: [facility] 10-24-2018 pneumococcal polysaccharide vaccine, 23 valent Sherrill Lees DO Work Phone: [facility] 10-12-2017 Influenza, injectabl e, Madin Castana Canine Kidney, preservative free, quadrivalent Sherrill Odenhas DO Work Phone: [facility] 10-12-2017 pneumococcal conjuga te vaccine, 13 valent Sherrill Odenhas DO Work Phone: [facility] 11-10-2016 influenza, seasonal, injectable, preservative free Sherrill Odenhas DO Work Phone: [facility] 10-28-2015 influenza, seasonal, injectable, preservative free Sherrill Odenhas DO Work Phone: [facility] 08-07-2014 influenza, seasonal, injectable Sherrill Yuhas DO Work Phone: [facility] Payers Date Payer Category Payer Self-pay [id number] 2023 Private Health Insurance [employer] [id number] 2021 Commercial Managed C are - PPO [employer] [id number] 2021 Unknown [employer] [place] SUPERMED [id number] 2021-Present [phone] [address] [place] [id number] 1968 Unknown [id number] 2.16.840.1.539013.3.579.2. 593 1968 Unknown [id number] 2.16.840.1.227663.3.579.2. 1286 1968 Unknown [id number] 2.16.840.1.062881.3.579.2. 1259 1968 Unknown [id number] 2.16.840.1.672642.3.579.2. 1286 1968 Unknown [id number] 2.16.840.1.409304.3.579.2. 1286 1968 Unknown [id number] 2.16.840.1.828867.3.579.2. 1286 1968 Unknown [id number] 2.16.840.1.769025.3.579.2. 1286 1968 Unknown [id number] 2.16.840.1.505485.3.579.2. 1286 1968 Unknown [id number] 2.16.840.1.742481.3.579.2. 1286 1968 Unknown [id number] 2.16.840.1.240423.3.579.2. 1286 1968 Unknown [id number] 2.16.840.1.659326.3.579.2. 1286 1959 Unknown [id number] Unknown [id number] Unknown [id number] 2.16.840.1.067377.3.579.2. 531 Unknown [id number] 2.16840.1.819145.3.579.2. 531 Social History Date Type Detail [facility] Start: 1970 Sex Assigned At Female [facility] Start: 01-08-2021 End: 09-29-2023 Sex Assigned At [facility] [employer] Other Start: 09-14-2018 End: 03-03-2023 Tobacco smoking status NHIS Never smoked tobacco (finding) [facility] Start: 03-03-2023 End: 09-29-2023 Tobacco use and exposure Smokeless tobacco non-user [facility] [email or web address] [facility] Start: 09-29-2023 End: 02-20-2025 Alcoholic beverage intake Current drinker of alcohol (finding) [facility] Start: 01-08-2021 End: 09-29-2023 History of Social function [facility] Start: 09-16-2023 Alcohol Comment 3 or 4 drinks on a typical day/ 2 to 4 times a month [facility] Start: 1970 Sex assigned at Not on file [facility] [employer] Start: 07-03-2015 End: 10-09-2024 Sex Female (finding) [facility] Adolescent depressio n screening assessment 0 [facility] Start: 03-03-2023 Alcohol Comment [facility] Goals Date Patient Goal Desired [...] and treated at the endocrine clinic in [place]. She states her A1cs have been generally [...] approximately 5 or 6 years ago at [place]. -her neuropathy has been stable. On a [...] feet. Is seen the wound clinic at [place]. Not on antibiotics, but using Santyl ointment [...] topically once a week., Disp: , Rfl: zqtjx-ivimc-0-jet-zdn-hvjquj (KRILL OIL) 969-05-17-50 mg capsule, Take by mouth., Disp: , [...] Testing No results found. Sherrill Carlin DO., [facility] Office: [phone] documented in this encounter [facility] 05-01-2025 Evaluation note Authored May 01, [...] the plate method. She will see the signal helper frequently and have a bioimpedance scan done [...] our diabetic department and seeing her diabetic signal helper Mariama. And her A1c is dropped from [...] and behavioral modification versus short-term dieting. Her Holcomb was 8 with starting the program. She [...] diabetic nurse practitioner for type 1 diabetes. [facility] Work Phone: [phone] 874-119206-04-2025 Evaluation note* Author Apolinar Kelly [facility] Authored May 01, 2025 12:17 [...] the plate method. She will see the signal helper frequently and have a bioimpedance scan done [...] our diabetic department and seeing her diabetic signal helper Mariama. And her A1c is dropped from [...] and behavioral modification versus short-term dieting. Her Holcomb was 8 with starting the program. She [...] for type 1 diabetes. Author Katelyn Echavarria [facility] Authored July 08, 2025 10 [...] the plate method. She will see the signal helper frequently and have a bioimpedance scan done [...] our diabetic department and seeing her diabetic signal helper Mariama. And her A1c is dropped from [...] and behavioral modification versus short-term dieting. Her Holcomb was 8 with starting the program. She [...] diabetic nurse practitioner for type 1 diabetes. [facility] Work Phone: [phone]) 917-727906-04-2025 Evaluation note* Author Apolinar Kelly [facility] Authored May 01, 2025 12:17 [...] the plate method. She will see the signal helper frequently and have a bioimpedance scan done [...] our diabetic department and seeing her diabetic signal helper Mariama. And her A1c is dropped from [...] and behavioral modification versus short-term dieting. Her Holcomb was 8 with starting the program. She [...] for type 1 diabetes. Author Apolinar Kelly [facility] Authored July 08, 2025 10 [...] better. She will continue to see the signal helper frequently and have a bioimpedance scan done [...] our diabetic department and seeing her diabetic signal helper Mariama. And her A1c is dropped from [...] and behavioral modification versus short-term dieting. Her Holcomb was 8 with starting the program. She [...] diabetic nurse practitioner for type 1 diabetes. [facility] Work Phone: [phone]) 997-819203-26-2025 NoteReliability was good. Progression has been stable. Findings include superior arcuate defect, inferior arcuate defect. Notes 24-2 TOP OSMANUALLY TRANSCRIBED [id number] NoteReliability was good. Progression has been stable. Findings include superior arcuate defect, inferior arcuate defect. Notes 24-2 TOP OSMANUALLY TRANSCRIBED [id number] History of Present illness Narrative* Sherrill Thakur [...] eye associated with type 2 diabetes mellitus ([facility]) E11.3552 4. Pseudophakia of left eye Z96.1 [...] Apply 1 Application topically once a week. rxdzw-qaxik-0-flx-oxk-hqwkpx (KRILL OIL) 879-98-43-50 mg capsule Take by mouth. pregabalin (LYRICA) 100 mg capsule TAKE 1 CAPSULE THREE TIMES A DAY No current facility-administered medications for this visit. (Other) Ms. Dahl has a past medical history of H/O vitrectomy, Hypercholesteremia, S/P YAG capsulotomy, left, and Type 1 diabetes ([facility]). She has a past surgical history that [...] the above service. documented in this encounterOhioHealth O[facility] HospitalKingsoft [facility] [id number] Instructions* Patient Instructions* Gabby Alexander - 02/20/2025 [...] more? Gl[employer] Foundation http://www.glaucoma.org/treatment/eyedrop-tips.php National [employer] Agency https://www.nei.nih.gov/rlply-ywggg-vzr-health/lxr-ztqlgafdjz-kgf-diseases/glauc elizabeth/glaucoma-medicines/uqd-cpf-chj-drops Last Reviewed Date 2020-10-29 Consumer Information Use [...] or approved for treating a specific patient. [employer] and its affiliatesdisclaim any warranty or liability relating to this information or the use thereof. The use of thisinformation is governed by the Terms of Use, available at https://www.Evodental.Movea/en/know/tjjhlhxi-zenekkvuzvqlt-awono Copyright Copyright 2022 [employer] and its affiliates and/or licensors. All rights reserved. documented [facility] Evaluation note* Author Apolinar Kelly [facility] Authored January 29, 2025 3:14 [...] our diabetic department and seeing her diabetic signal helper Mariama. And her A1c is dropped from [...] and behavioral modification versus short-term dieting. Her Holcomb was 8 with starting the program. She [...] diabetic nurse practitioner for type 1 diabetes. [facility] Work Phone: [phone]) 180-656003-04-2025 Evaluation note* Author Katelyn Echavarria [facility] Authored May 01, 2025 11:02 [...] our diabetic department and seeing her diabetic signal helper Mariama. And her A1c is dropped from [...] and behavioral modification versus short-term dieting. Her Holcomb was 8 with starting the program. She [...] diabetic nurse practitioner for type 1 diabetes. [facility] Work Phone: [phone] 798-892512-23-2024 History of Present illness Narrative* Sherrill Rosenberg Raegan, DO - 11/19/2024 2:00 PM EST IM PROGRESS NOTE Patient - Yuridia Dahl Age - 54 y.[facility]. [facility] 1970 [id number] ASSESSMENT & PLAN 1. Spinal stenosis of [...] topically once a week., Disp: , Rfl: chfti-wlwqe-8-egn-yvw-vyiigz (KRILL OIL) 651-09-69-50 mg capsule, Take by mouth., Disp: , [...] Testing No results found. Sherrill Carlin DO., [facility] Office: [phone] documented in this encounterCommunity [facility]11-[facility]2024 Evaluation note* Author Katelyn Echavarria [facility] Authored January 29, 2025 1:43 [...] our diabetic department and seeing her diabetic signal helper Mariama. And her A1c is dropped from [...] and behavioral modification versus short-term dieting. Her Holcomb was 8 with starting the program. She [...] diabetic nurse practitioner for type 1 diabetes. [facility] Work Phone: [phone]) 501-985411-04-2024 History of Present illness Narrative* Ghanshyam Black, COOPERATIVE EDUCATION COORDINATOR-STONECUTTER APPRENTICE HAND - 10/01/2024 9:50 AM EST Follow-Up: Diagnosis: [...] 1 year, follow up [id number] NoteQuality was good. Progression has been stable. [...] Sugar/Blood Pressure control and close follow-up with PCP/Ironer Hand -Advised of importance in BS/BP control in [...] both accurate and complete. documented in [facility] encounterCommunity [facility]10-[facility] Evaluation note* Author Apolinar Kelly [facility] Authored August 28, 2024 9: [...] our diabetic department and seeing her diabetic signal helper Mariama. And her A1c is dropped from [...] and behavioral modification versus short-term dieting. Her Holcomb was 8 with starting the program. She [...] for type 1 diabetes. Author Katelyn Echavarria [facility] Authored October 09, 2024 12:04pm [...] our diabetic department and seeing her diabetic signal helper Mariama. And her A1c is dropped from [...] and behavioral modification versus short-term dieting. Her Holcomb was 8 with starting the program. She [...] diabetic nurse practitioner for type 1 diabetes. [facility] Work Phone: [phone]) 276-428607-31-2024 Evaluation note* Author Apolinar Kelly [facility] Authored June 27, 2024 10:4 [...] our diabetic department and seeing her diabetic signal helper Mariama. And her A1c is dropped from [...] and behavioral modification versus short-term dieting. Her Holcomb was 8 with starting the program. She [...] for type 1 diabetes. Author Katelyn Echavarria [facility] Authored August 28, 2024 10 [...] our diabetic department and seeing her diabetic signal helper Mariama. And her A1c is dropped from [...] and behavioral modification versus short-term dieting. Her Holcomb was 8 with starting the program. She [...] diabetic nurse practitioner for type 1 diabetes. [facility] Work Phone: [phone]) 598-360807-31-2024 Evaluation note* Author Apolinar Kelly [facility] Authored June 27, 2024 10:4 [...] our diabetic department and seeing her diabetic signal helper Mariama. And her A1c is dropped from [...] and behavioral modification versus short-term dieting. Her Holcomb was 8 with starting the program. She [...] for type 1 diabetes. Author Maria Fernanda [facility] Authored August 21, 2024 3:36pm Highest [...] our diabetic department and seeing her diabetic signal helper Mariama. And her A1c is dropped from [...] and behavioral modification versus short-term dieting. Her Holcomb was 8 with starting the program. She [...] diabetic nurse practitioner for type 1 diabetes. [facility] Work Phone: [phone]) 131-422307-31-2024 Evaluation note* Author Apolinar Kelly [facility] Authored June 27, 2024 10:4 [...] our diabetic department and seeing her diabetic signal helper Mariama. And her A1c is dropped from [...] and behavioral modification versus short-term dieting. Her Holcomb was 8 with starting the program. She [...] for type 1 diabetes. Author Apolinar Kelly [facility] Authored August 28, 2024 10 [...] our diabetic department and seeing her diabetic signal helper Mariama. And her A1c is dropped from [...] and behavioral modification versus short-term dieting. Her Holcomb was 8 with starting the program. She [...] diabetic nurse practitioner for type 1 diabetes. [facility] Work Phone: [phone]) 454-597506-18-2024 Evaluation note* Author Apolinar Kelly [facility] Authored May 15, 2024 10:1 [...] and behavioral modification versus short-term dieting. Her Holcomb was 8 with starting the program. She [...] for type 1 diabetes. Author Apolinar Kelly [facility] Authored June 27, 2024 10:4 [...] our diabetic department and seeing her diabetic signal helper Mariama. And her A1c is dropped from [...] and behavioral modification versus short-term dieting. Her Holcomb was 8 with starting the program. She [...] diabetic nurse practitioner for type 1 diabetes. [facility] Work Phone: [phone] 524-115306-04-2024 Miscellaneous Notes* Telephone Encounter - Jackie Jimenez [...] AM EDT sending letter documented in [facility] encounterCommunity [facility] Telephone encounter Note* Telephone Encounter - Jackiesujata Jimenez - 05/01/2024 8:22 AM EDT ----- Message from Sherrill Carlin DO sent at 01/12/2024 6:45 PM EST ----- DM recheck [facility]06-[facility]24 Telephone encounter Note* Telephone Encounter - Jackiesujata Jimenez - 05/01/2024 8:22 AM EDT Sent mychart msg [facility]06-04-2024 Telephone encounter Note* Telephone Encounter - Jackie Jimenez - 05/01/2024 8:22 AM EDT LM on VM [employer] [id number] Telephone encounter Note* Telephone Encounter - Jackie Jimenez - 05/01/2024 8:22 AM EDT sending letter [employer] [id number] Evaluation note* Author Apolinar Kelly [facility] Authored April 03, 2024 12:57p [...] and behavioral modification versus short-term dieting. Her Holcomb was 8 with starting the program. She [...] Our exercise program was recommended with our back winder/obesity exercise group. Handout given. Our free weekly [...] and benefits of prescribed meds discussed. Initial vaor-rr-gdhh interview/evaluation. The patient was counseled in detail on the options for weight loss in an individual setting. 65 minutes was spent caring for the patient, counseling/educating patient on the options for the treatment of obesity and related healthcare issues. The program's treatment goals were reviewed with the patient. Each aspect of the program was discussed with the patient. [facility] Work Phone: [phone]) 615-500305-07-2024 Evaluation note* Author Apolinar Kelly [facility] Authored April 03, 2024 12:57p [...] and behavioral modification versus short-term dieting. Her Holcomb was 8 with starting the program. She [...] Our exercise program was recommended with our back winder/obesity exercise group. Handout given. Our free weekly [...] and benefits of prescribed meds discussed. Initial swth-gc-spjg interview/evaluation. The patient was counseled in detail on the options for weight loss in an individual setting. 65 minutes was spent caring for the patient, counseling/educating patient on the options for the treatment of obesity and related healthcare issues. The program's treatment goals were reviewed with the patient. Each aspect of the program was discussed with the patient. Author Katelyn Echavarria [facility] Authored May 15, 2024 9:50 [...] and behavioral modification versus short-term dieting. Her Holcomb was 8 with starting the program. She [...] diabetic nurse practitioner for type 1 diabetes. [facility] Work Phone: [phone]) [phone] Evaluation note* Author Apolinar Kelly [facility] Authored April 03, 2024 12:57p [...] and behavioral modification versus short-term dieting. Her Holcomb was 8 with starting the program. She [...] Our exercise program was recommended with our back winder/obesity exercise group. Handout given. Our free weekly [...] and benefits of prescribed meds discussed. Initial vcre-gi-cibp interview/evaluation. The patient was counseled in detail on the options for weight loss in an individual setting. 65 minutes was spent caring for the patient, counseling/educating patient on the options for the treatment of obesity and related healthcare issues. The program's treatment goals were reviewed with the patient. Each aspect of the program was discussed with the patient. Author Apolinar Kelly [facility] Authored May 15, 2024 10:1 [...] and behavioral modification versus short-term dieting. Her Holcomb was 8 with starting the program. She [...] for type 1 diabetes. Author Katelyn Echavarria [facility] Authored June 27, 2024 10:1 [...] and behavioral modification versus short-term dieting. Her Holcomb was 8 with starting the program. She [...] diabetic nurse practitioner for type 1 diabetes. [facility] Work Phone: 1([phone]) 787-730403-14-2024 NoteReliability was borderline. Progression has been stable. Findings include (Inferior>superior arcuate). Notes 24-2 TOP OSMANUALLY TRANSCRIBED [id number] NoteReliability was borderline. Progression has been stable. Findings include (Inferior>superior arcuate). Notes 24-2 TOP OSMANUALLY TRANSCRIBED [id number] History of Present illness Narrative* Sherrill Thakur [...] eye associated with type 2 diabetes mellitus ([facility]) E11.3552 4. Anophthalmos of right eye [...] Apply 1 Application topically once a week. mudpm-xiyzm-0-hyx-tyb-kwvdau (KRILL OIL) 094-27-39-50 mg capsule Take by mouth. LOKELMA 5 gram packet MIX AND DRINK 1 PACKET TWO TIMES A WEEK pregabalin (LYRICA) 100 mg capsule TAKE 1 CAPSULE THREE TIMES A DAY clobetasoL (TEMOVATE) 0.05 % lotion clobetasol 0.05 % lotion (Patient not taking: Reported on 02/09/2024) dorzolamide-timoloL (COSOPT) 22.3-6.8 mg/mL ophthalmic solution Administer 1 drop into the left eyeevery 12 (twelve) hours. pfhrwatkg-T2-nfT90-algal oil (FOLTANX RF/MENTAX) 3 mg-35 mg-2 mg -90.314 mg capsule Metanx (algal oil) 3 mg-35 mg-2 mg-90.314 mg capsule (Patient not taking: Reported on 02/09/2024) No current facility-administered medications for this visit. (Other) Ms. Dahl has a past medical history of H/O vitrectomy, Hypercholesteremia, S/P YAG capsulotomy, left, and Type 1 diabetes ([facility]). She has a past surgical history that [...] both accurate and complete. [facility] Instructions* Patient Instructions* Gabby Harrison 02/09/2024 [...] more? Glaucoma Research Foundation http://www.glaucoma.org/treatment/eyedrop-tips.php National [employer] Crow Agency https://www.nei.nih.gov/qnray-fensc-crc-health/vpc-bacjrjyvak-wuz-diseases/glauc elizabeth/glaucoma-medicines/xyx-lil-ahe-drops Last Reviewed Date 2020-10-29 Consumer Information Use [...] or approved for treating a specific patient. [employer] and its affiliatesdisclaim any warranty or liability relating to this information or the use thereof. The use of thisinformation is governed by the Terms of Use, available at https://www.Evodental.com/en/know/lcysqrjo-uzabhiwtvcubj-yavfi Copyright Copyright 2022 [employer] and its affiliates and/or licensors. All rights reserved. documented in this encounterOhioHealth O'Bleness HospitalKingsoft [facility] [id number] Miscellaneous Notes* Telephone Encounter - Carey Nelson CMA - 01/30/2024 10:20 AM EST Spoke with patient regarding cologuard. Patient plans to complete soon. documented in this encounterCommunity [facility]24 Telephone encounter Note* Telephone Encounter - Carey Nelson CMA - 01/30/2024 10:20 AM EST Spoke with patient regarding cologuard. Patient plans to complete soon. [facility] History of Present illness Narrative* Sherrill Carlin DO - 01/12/2024 9:20 AM EST IM PROGRESS NOTE Patient - Yuridia Dahl Age - 53 y.o. - 1970 ASSESSMENT & PLAN 1. 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 Stage 3a chronic kidney disease ([facility]) -microalbumin as above -on Lokelma intermittently, based on suspected potassium intake. -uses it if she has potatoes, tomatoes, etc. Subjective DIABETIC VISIT This is a follow up of a pre-existing problem. Patient self monitoring includes CGM. Uses [employer] device which communicates with her insulin pump. [...] topically once a week., Disp: , Rfl: inzgxbysu-I0-vvL37-algal oil (FOLTANX RF/MENTAX) 3 mg-35 mg-2 mg [...] a day as needed., Disp: , Rfl: vpnpo-isxst-5-sut-mns-fddvdi (KRILL OIL) 585-40-07-50 mg capsule, Take by mouth., Disp: , [...] Testing No results found. Sherrill Carlin DO., [facility] Office: [phone] documented in this encounterCommunity [facility] Hospital10-30-2023 Evaluation note* Encounter Date Diagnosis Assessment [...] PCP for lipid profile and LFT monitoring [facility] Other [id number] NotePROCEDURE: XR KNEE RT 3V DATE: 03/17/2023 [...] Electronically authenticated by: IVORY KING Date: 2023-03-17 10:50[facility]04-20-2023 NotePROCEDURE: XR HIP LT 2 3V W [...] Electronically authenticated by: IVORY KING Date: 2023-03-17 10:48[facility]10-25-2022 Evaluation note* Encounter Date Diagnosis Assessment Notes [...] GI work-up including a Cologuard or colonoscopy [facility] Other Evaluation noteNo assessment information available [facility] Work Phone: Evaluation note* Author Katelyn Echavarria [facility] Authored April 03, 2024 11:45a [...] Our exercise program was recommended with our back winder/obesity exercise group. Handout given. Our free weekly [...] and benefits of prescribed meds discussed. Initial tand-po-ipaz interview/evaluation. The patient was counseled in detail on the options for weight loss in an individual setting. [ ] minutes was spent caring for the patient, counseling/educating patient on the options for the treatment of obesity and related healthcare issues. The program's treatment goals were reviewed with the patient. Each aspect of the program was discussed with the patient. [facility] Work Phone: Evaluation note* Diagnosis Other atopic dermatitis Other seborrheic dermatitis EIC (epidermal inclusion cyst) Sebaceous cyst documented in this encounter [facility] HealthcareEvaluation note* Diagnosis Spinal stenosis of lumbar region with neurogenic claudication- Primary Osteoarthritis of right patellofemoral joint Mixed hyperlipidemia documented in this encounter [facility]* Diagnosis Diabetic peripheral neuropathy ([facility]) Type II or unspecified type diabetes mellitus with neurological manifestations, not stated as uncontrolled [facility]* Diagnosis Chronic hyperkalemia Hyperpotassemia [facility] in this encounter [facility]* Diagnosis Diabetic peripheral neuropathy (CMS-HCC) Type II or unspecified type diabetes mellitus with neurological manifestations, not stated as uncontrolled 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* Diagnosis Primary open angle [...] eye, indeterminate stage [facility]* Diagnosis Primary open angle glaucoma of left eye, indeterminate stage [facility]* Diagnosis Diabetic peripheral neuropathy (CMS-HCC) Type II or unspecified type diabetes mellitus with neurological manifestations, not stated as uncontrolled [facility]* Diagnosis Mixed hyperlipidemia 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 (CMS-HCC) documented in this encounter [facility] SystemEvaluation note* Diagnosis Mixed hyperlipidemia documented in this encounter [facility] SystemEvaluation note* Diagnosis Primary open angle [...] eye, indeterminate stage documented in this encounter [facility] SystemEvaluation note* Diagnosis Primary open angle glaucoma of left eye, indeterminate stage documented in this encounter [facility] SystemEvaluation note* Diagnosis Mixed hyperlipidemia documented in this encounter [facility] SystemEvaluation note* Diagnosis Abnormal wellness exam- Primary Mixed hyperlipidemia At risk for coronary artery disease Encounter for screening mammogram for malignant neoplasm of breast 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 documented in this encounter [facility] SystemEvaluation note* Diagnosis Mixed hyperlipidemia documented in this encounter [facility] SystemHistory general Narrative - Reported* Type [...] left eye cataract Hospitalization History As above [facility] Other InstructionsNot on filedocumented in this encounter [facility] [email or web address] SystemInstructionsNot on filedocumented in this encounter [facility] [email or web address] SystemInstructionsNot on filedocumented in this encounter [facility] [email or web address] SystemInstructionsNot on filedocumented in this encounter [facility] Health SystemInstructionsNot on filedocumented in this encounter [facility] SystemInstructionsNot on filedocumented in this encounter [facility] SystemInstructionsNot on filedocumented in this encounter [facility] SystemInstructions* Attachments The following attachments cannot be sent through Care Everywhere. * Open-angle glaucoma (Tajik) documented in this encounterProMedica Health SystemInstructionsNot on file documented in this encounterProMedica Health SystemInstructionsNot on file documented in this encounterProParkview [facility] SystemInstructions* Attachments The following attachments cannot be sent through Care Everywhere. * Postmeniscectomy Exercises Lying Down (Tajik) documented in this encounterProG[facility] Health SystemReason for referral (narrative)No reason for referral information availableOhiohealth [facility] Work Phone: Advance Directives Advance Directive Response Recorded Date/ Time Advance Directives No September 05, 2017 8:32am Advance Directive Response Recorded Date/ Time Advance Directives No September 05, 2017 9:32am Chief Complaint and Reason for Visit Chief Complaint E10.42 Chief Complaint See order Chief Complaint N18.30 E10.22 N25.81 E87.5 D6.1 Chief Complaint [facility] Chief Complaint [facility] Amb Documentation Amb Documentation Amb Documentation Amb Documentation Amb Documentation Diabetes ED and DL will f/u with TKM per DC Chief Complaint [facility] Amb Documentation Amb Documentation Amb Documentation Amb Documentation Amb Documentation Diabetes ED and DL will f/u with TKM per DC Type 1 per DC see TKM Reason for Visit BMI 29.0-29.9,adult Dietary counseling and surveillance Hyperlipidemia Insulin long-term use Insulin pump titration 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 Chief Complaint [facility] Amb Documentation Amb Documentation Amb Documentation Amb Documentation Amb Documentation Diabetes ED and DL will f/u with TKM per DC Type 1 per DC see TKM anti inflammatory eating Reason for Visit BMI 29.0-29.9,adult Dietary counseling and surveillance Hyperlipidemia Insulin long-term use Insulin pump titration 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 Chief Complaint [facility] Amb Documentation Amb Documentation Amb Documentation Amb Documentation Amb Documentation Diabetes ED and DL will f/u with TKM per DC Type 1 per DC see TKM anti inflammatory eating e10.22 n18.31 Reason for Visit BMI 29.0-29.9,adult Dietary counseling and surveillance Hyperlipidemia Insulin long-term use Insulin pump titration 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 Chief Complaint [facility] Amb Documentation Amb Documentation Amb Documentation Amb [...] CREATED AUTHOR AUTHOR'S ORGANIZ ATION 03/21/2023 [facility] DATE CREATED AUTHOR AUTHOR'S ORGANIZ ATION 01/14/2024 [facility] DATE CREATED AUTHOR AUTHOR'S ORGANIZ ATION 10/02/2024 [facility] EPIC DATE CREATED AUTHOR AUTHOR'S ORGANIZ ATION 06/21/2025 [facility] DATE CREATED AUTHOR AUTHOR'S ORGANIZ ATION 07/11/2025 [facility] Care Teams (unrecognized sec tion [...] October 09, 2024 End: October 09, 2024 Single Stayer Operator Relationship Specialty Start Date End Date Sherrill Carlin DO [address] [facility] [place] [address] PCP - General Internal Medicine 08/24/21 Single Stayer Operator Relationship Specialty Start Date End Date Sherrill Carlin DO [address] [facility] [place] [address] PCP - General Internal Medicine 08/24/21 Single Stayer Operator Relationship Specialty Start Date End Date Sherrill Carlin DO [address] [facility] [place] [address] PCP - General Internal Medicine 08/24/21 Single Stayer Operator Relationship Specialty Start Date End Date Sherrill Carlin DO [address] [facility] [place] [address] PCP - General Internal Medicine 08/24/21 Single Stayer Operator Relationship Specialty Start Date End Date Sherrill Carlin DO [address] [facility] [place] [address] PCP - General Internal Medicine 08/24/21 Single Stayer Operator Relationship Specialty Start Date End Date Sherrill Carlin DO [address] [facility] [place] [address] PCP - General Internal Medicine 08/24/21 Single Stayer Operator Relationship Specialty Start Date End Date Sherrill Carlin DO [address] [place] [address] PCP - General Internal Medicine 08/24/21 Single Stayer Operator Relationship Specialty Start Date End Date Sherrill Carlin DO [address] [place] [address] PCP - General Internal Medicine 08/24/21 Single Stayer Operator Relationship Specialty Start Date End Date Sherrill Carlin DO [address] [place] [address] PCP - General Internal Medicine 08/24/21 Team [...] February 19, 2025 End: February 19, 2025 Single Stayer Operator Relationship Specialty Start Date End Date Sherrill Carlin DO [address] [place] [address] PCP - General Internal Medicine 08/24/21 Single Stayer Operator Relationship Specialty Start Date End Date Sherrill Carlin DO [address] [place] [address] PCP - General Internal Medicine 08/24/21 Single Stayer Operator Relationship Specialty Start Date End Date Sherrill Carlin DO [address] [place] [address] PCP - General Internal Medicine 08/24/21 Single Stayer Operator Relationship Specialty Start Date End Date Sherrill Carlin DO [address] [place] [address] PCP - General Internal Medicine 08/24/21 Team [...] June 05, 2025 End: June 05, 2025 Rodegr Avila APRN Attending Provider Active Start: June [...] BE BASED ON THE PRIMARY CLINICAL RECORDS. [employer] [facility]. provides no warranty or guarantee of the accuracy or completeness of information in this document.
== END 2025-08-20 10:17 | disposition home or self-care (01) ==
LOC: WC 10:16
PROVIDERS: PCP Internal Medicine; Visit Provider Physician Assistant
DX: E11.621 Type 2 diabetes mellitus with foot ulcer (principal); L97.422 Non-pressure chronic ulcer of left heel and midfoot with fat layer exposed
CPT/HCPCS: G0463

== ENCOUNTER 2025-09-03 10:20 | Outpatient (OUT) | payer OTHER, SELFPAY ==
--- OUTSIDE RECORDS SUMMARY | 2025-09-03 10:23 | XMS_ITS | Clinical Summary ---
Author Organization [facility] Address [address], [address] [place] [address] Care Team Providers Care Shade Cloth Finisher Name Role Phone Newton Verdugo DO Primary Care Provider [phone] Allergies Active Allergy Reactions Criticality Noted Date [...] on file Insurance [employer] Care Teams Shade Cloth Finisher Relationship Specialty Start Date End Date Newton Verdugo DO PCP - General 09/28/13
--- OUTSIDE RECORDS SUMMARY | 2025-09-03 10:23 | XMS_ITS | Encounter Summary ---
Author Organization [facility] [employer] s tem Address [facility]-[id number] [address] [place] [address] Care Team Providers Care Esol Teacher Assistant Name Role Phone Newton Verdugo DO Primary Care Provider [phone] Encounter Details Date Type Department Care Team (Late st Contact Info) Description 08/23/2023 Orders Only [facility] Internal [facility] - Family Medicine [address] [place] [phone] Newton Verdugo DO [address] [place] [address] Mixed hyperlipidemia (Primary Dx) Social History Tobacco [...] Care Team (Late st Contact Info) Description 09/30/2025 8:20 AM EST Office Visit [facility] Department of [facility] [address] [place] [address] Nick Bailey MD [address] [place] [address] 02/24/2026 3:00 PM EDT Ophthalmology Imaging [facility] [address] [place] [address] 02/24/2026 3:10 PM EDT Office Visit [facility] [address] [place] [address] [phone] Newton Thakur MD [address] [place], [place] [address] [phone] documented as of this encounter Visit Diagnoses Diagnosis Mixed hyperlipidemia- Primary documented in this encounter Additional Health Concerns Assessment Noted Time PHQ-9 Depression Total Score: 0 08/23/20 23 8:51 AM EDT documented as of this encounter Care Teams Esol Teacher Assistant Relationship Specialty Start Date End Date Newton Verdugo DO [address] [place] [address] PCP - General Internal Medicine 08/24/21 documented as of this encounter
--- OUTSIDE RECORDS SUMMARY | 2025-09-03 10:23 | XMS_ITS | Clinical Summary ---
Author Organization [email or web address] s tem Address [id number] [address] [place] [address] Care Team Providers Care Service Delivery Director Name Role Phone Newton Verdugo Primary Care Provider [phone] Allergies Active Allergy Reactions Criticality Noted Date [...] PUMP 90 mL 3 09/30/20 23 Active aigog-ggzcp-6-dha- epa-lipids (KRILL OIL) 860-86-56-50 mg capsule Take by mouth. Acti ve [...] Medicine - Family Medicine [address] [place] [address] Newton Verdugo, Mixed hyperlipidemia 07/09/2025 3:15 PM EDT Office Visit [facility] - Family Medicine [address] [place] [address] Newton Verdugo, Abnormal wellness exam (Primary Dx); [...] Description 09/30/2025 8:20 AM EST Office Visit [facility] Department of [facility] [address] [place] [address] Nick Bailey MD [address] [place], [place] [phone] 02/24/2026 3:00 PM EDT Ophthalmology Imaging [facility] [address] [place] [address]/24/2026 3:10 PM EDT Office Visit [facility] [address] [place] [address] Newton Thakur MD [address] [place], [place] [phone] Health Maintenance Due Date Last Done Comments [...] on file Insurance [employer] Care Teams Service Delivery Director Relationship Specialty Start Date End Date Newton Verdugo DO [address] [place] [address] PCP - General Internal Medicine 08/24/21
--- OUTSIDE RECORDS SUMMARY | 2025-09-03 10:23 | XMS_ITS | Encounter Summary ---
Author Organization [facility] [employer] s [employer] Address [facility]-[id number] [address] [place] [address] Care Team Providers Care Trading Analyst Name Role Phone Newton Verdugo DO Primary Care Provider [phone] Encounter Details Date Type Department Care Team (Late st Contact Info) Description 03/03/2023 Orders Only [facility] Internal Medicine - Family Medicine [address] [place] [address] Newton Verdugo DO [address] [place] [address] Chronic hyperkalemia (Primary Dx) Social History Tobacco [...] Description 09/30/2025 8:20 AM EST Office Visit [facility] Department of [facility] [address] [place] [address] Nick Bailey MD [address] [place] [address] 02/24/2026 3:00 PM EDT Ophthalmology Imaging [facility] [address] [place] [address] [phone] 02/24/2026 3:10 PM EDT Office Visit [facility] [address] [place] [address] Newton Thakur MD [address] [place], [place] [phone] documented as of this encounter Visit Diagnoses Diagnosis Chronic hyperkalemia- Primary Hyperpotassemia documented in this encounter Additional Health Concerns Assessment Noted Time PHQ-9 Depression Total Score: 0 03/03/20 23 8:51 AM EDT documented as of this encounter Care Teams Trading Analyst Relationship Specialty Start Date End Date Newton Verdugo DO [address] [place] [address] PCP - General Internal Medicine 08/24/21 documented as of this encounter
--- OUTSIDE RECORDS SUMMARY | 2025-09-03 10:23 | XMS_ITS | Encounter Summary ---
Author Organization [facility] Address [address] [place] [address] Care Team Providers Care Investment Sales Assistant Name Role Phone Unavailable Primary Care Provider Unavailabl e Encounter Details Date Type Department Care Team (Late st Contact Info) Description 09/16/2023 Abstract [facility] [address] [facility] [address] [address] [facility] [address] [place] [address] Shelby Black APRN-FIELD STAFF [address] [facility] [address] [facility] [address] [place] [address] Social History Tobacco Use Types Packs/Day Years [...] Office Visit [facility] [address] [facility] [address] [place] [address] Shelby Black APRN-FIELD STAFF [address] [facility] [email or web address] [facility] [address] [place] [address] documented as of this encounter Visit Diagnoses Not on filedocumented in this encounter
--- OUTSIDE RECORDS SUMMARY | 2025-09-03 10:23 | XMS_ITS | Encounter Summary ---
Author Organization [facility] Address [facility][id number] [address] [place] [address] Care Team Providers Care Computer Typesetter Keyliner Name Role Phone Newton Verdugo DO Primary Care Provider [phone] Reason for Visit * Reason Comments Med Refill Encounter Details Date Type Department Care Team (Late st Contact Info) Description 09/19/2024 Refill [facility] Internal Medicine - Family Medicine [address] [place] [address] Newton Verdugo DO [address] [place] [address] Type 1 diabetes mellitus with nephropathy ([facility]) Social History Tobacco Use Types Packs/Day Years [...] Office Visit [facility] Department of [facility] [address] [place] [address] Nick Bailey MD [address] [place] [address] 02/24/2026 3:00 PM EDT Ophthalmology Imaging [facility] [address] [place] [address] 02/24/2026 3:10 PM EDT Office Visit [facility] [address] [place] [address] Newton Thakur MD [address] [place] [address] documented as of this encounter Visit Diagnoses Diagnosis Type 1 diabetes mellitus with nephropathy (CMS-HCC) documented in this encounter Additional Health Concerns Assessment Noted Time PHQ-9 Depression Total Score: 0 01/12/20 24 9:53 AM EST documented as of this encounter Care Teams Computer Typesetter Keyliner Relationship Specialty Start Date End Date Newton Verdugo DO [address] [place] [address] PCP - General Internal Medicine 08/24/21 documented as of this encounter
--- OUTSIDE RECORDS SUMMARY | 2025-09-03 10:23 | XMS_ITS | Encounter Summary ---
Author Organization [facility] [employer] s tem Address [facility] [id number] [address] [place] [address] Care Team Providers Care Form Grader Name Role Phone Newton Verdugo DO Primary Care Provider [phone] Encounter Details Date Type Department Care Team (Late st Contact Info) Description 01/12/2024 Orders Only [facility] - [facility] Medicine [address] [place] [address] Newton Verdugo DO [address] [place] [address] Social History Tobacco Use Types Packs/Day Years [...] of [facility] [place] [address] [place] [address] Nick Bailey MD [address] [place] [address] 02/24/2026 3:00 PM EDT Ophthalmology Imaging [facility] [address] [place] [address] 02/24/2026 3:10 PM EDT Office Visit [facility] [address] [place] [address] Newton Thakur MD [address] [place], [place] [address] [phone] documented as of this encounter Visit Diagnoses Not on filedocumented in this encounter Additional Health Concerns Assessment Noted Time PHQ-9 Depression Total Score: 0 01/12/20 24 9:53 AM EST documented as of this encounter Care Teams Form Grader Relationship Specialty Start Date End Date Newton Verdugo DO [address] [place] [address] PCP - General Internal Medicine 08/24/21 documented as of this encounter
--- OUTSIDE RECORDS SUMMARY | 2025-09-03 10:23 | XMS_ITS | Encounter Summary ---
Author Organization [facility] [employer] s tem Address [facility] [place] [id number] [address] [place] [address] Care Team Providers Care Diamond Die Driller Name Role Phone Newton Verdugo DO Primary Care Provider [phone] Encounter Details Date Type Department Care Team (Late st Contact Info) Description 09/21/2023 Orders Only [facility] - Family Medicine [address] [place] [address] Newton Verdugo DO [address] [place] [address] Social History Tobacco Use Types Packs/Day Years [...] [facility] Department of [facility] [address] [place] [address] Nick Bailey MD [address] [place] [address] 02/24/2026 3:00 PM EDT Ophthalmology Imaging [facility] [address] [place] [address] 02/24/2026 3:10 PM EDT Office Visit [facility] [address] [place] [address] Newton Thakur MD [address] [place], [place] [phone] documented as of this encounter Visit Diagnoses Not on filedocumented in this encounter Additional Health Concerns Assessment Noted Time PHQ-9 Depression Total Score: 0 08/23/20 23 8:51 AM EDT documented as of this encounter Care Teams Diamond Die Driller Relationship Specialty Start Date End Date Newton Verdugo DO [address] [place] [address] PCP - General Internal Medicine 08/24/21 documented as of this encounter
--- OUTSIDE RECORDS SUMMARY | 2025-09-03 10:24 | XMS_ITS | Clinical Summary ---
Author Organization [facility] Healthcare Address [address] [place] [address] Care Team Providers Care Legal Summer Intern Name Role Phone Unavailable Primary Care Provider [...] 3 Active ergocalciferol (Vitamin D-2) 1.25 MG (36094 UT) capsule Take 50,000 Units by mouth. [...] Dermatology [address] [place] [address] MarieShelby leija, LIE DETECTOR OPERATOR-VALIDATION SCIENTIST [address] [place] [address] Health Maintenance Due Date Last Done Comments CT Colonography 1968 Colonoscopy 1968 FIT 1968 FOBT 1968 Sigmoidoscopy 1968 Pap Smear 1989 Cervical Cancer Screening 1998 HPV/Cotest 1998 Mammogram 2008 Influenza Vaccine (#1) 2025 , 10/04/2019, 10/24/2018, Additional history exists Colorectal Cancer Screening 06/07/2027 FIT-DNA 06/07/2027 06/07/2024, 12/08/2018 Insurance [employer]
--- OUTSIDE RECORDS SUMMARY | 2025-09-03 10:24 | XMS_ITS | Encounter Summary ---
Author Organization [facility] Sys tem Address [facility] [id number] [address] [place] [address] Care Team Providers Care Sleeve Machine Tender Name Role Phone Newton Verdugo DO Primary Care Provider [phone] Encounter Details Date Type Department Care Team (Late st Contact Info) Description 10/18/2023 Orders Only [facility] - Family Medicine [address] [place] [address] Newton Verdugo DO [address] [place] [address] Special screening for malignant neoplasm of colon [...] Office Visit [facility], [facility] Department of [facility] [address] [place] [address] Nick Bailey MD [address] [place] [address] 02/24/2026 3:00 PM EDT [facility] [address] [place] [address] 02/24/2026 3:10 PM EDT Office Visit [facility] [address] [place] [address] Newton Thakur MD [address] [place] [address] documented as of this encounter Visit Diagnoses Diagnosis Special screening for malignant neoplasm of colon- Primary Special screening for malignant neoplasms, colon documented in this encounter Additional Health Concerns Assessment Noted Time PHQ-9 Depression Total Score: 0 08/23/20 23 8:51 AM EDT documented as of this encounter Care Teams Sleeve Machine Tender Relationship Specialty Start Date End Date Newton Verdugo DO [address] [place] [address] PCP - General Internal Medicine 08/24/21 documented as of this encounter
--- OUTSIDE RECORDS SUMMARY | 2025-09-03 10:24 | XMS_ITS | Clinical Summary ---
Author Organization [facility] Address [address] [place] [address] Phone Care Team Providers Care Quarter Backer Name Role Phone Unavailable Primary Care Provider [...]
--- OUTSIDE RECORDS SUMMARY | 2025-09-03 10:24 | XMS_ITS | Encounter Summary ---
Author Organization [facility] s tem Address [facility] [place][id number] [address] [place] [address] Care Team Providers Care Grants Administrator Name Role Phone Newton Verdugo DO Primary Care Provider [phone] Encounter Details Date Type Department Care Team (Late st Contact Info) Description 02/28/2024 Orders Only [facility] - Family Medicine [address] [place] [address] Newton Verdugo DO [address] [place] [address] Social History Tobacco Use Types Packs/Day Years [...] Office Visit [facility], A Department of [facility] [address] [place] [address] Nick Bailey MD [address] [place] [address] 02/24/2026 3:00 PM EDT Ophthalmology Imaging [facility] [address] [place] [address] 02/24/2026 3:10 PM EDT Office Visit [facility] [address] [place] [address] Newton Thakur MD [address] [place], [place] [address] [phone] documented as of this encounter Visit Diagnoses Not on filedocumented in this encounter Additional Health Concerns Assessment Noted Time PHQ-9 Depression Total Score: 0 01/12/20 24 9:53 AM EST documented as of this encounter Care Teams Grants Administrator Relationship Specialty Start Date End Date Newton Verdugo DO [address] [place] [address] PCP - General Internal Medicine 08/24/21 documented as of this encounter
--- OUTSIDE RECORDS SUMMARY | 2025-09-03 10:24 | XMS_ITS | Encounter Summary ---
Author Organization [facility] s tem Address [facility] [place][id number] [address] [place] [address] Care Team Providers Care Bricklayer Tender Name Role Phone Newton Verdugo DO Primary Care Provider [phone] Encounter Details Date Type Department Care Team (Late st Contact Info) Description 03/22/2023 Orders Only [facility] - Family Medicine [address] [place] [address] Newton Verdugo DO [address] [place] [address] Spondylosis of lumbar region without myelopathy or [...] Description 09/30/2025 8:20 AM EST Office Visit [facility], A Department of [facility] [address] [place] [address] Nick Bailey MD [address] [place], [place] [address] [phone] 02/24/2026 3:00 PM EDT Ophthalmology Imaging [facility] [address] [place] [address] 02/24/2026 3:10 PM EDT Office Visit [facility] [address] [place] [address] Newton Thakur MD [address] [place], [place] [address] [phone] documented as of this encounter Visit Diagnoses Diagnosis 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
--- OUTSIDE RECORDS SUMMARY | 2025-09-03 10:24 | XMS_ITS | Encounter Summary ---
Author Organization [facility] Sys tem Address [facility] [id number] [address] [place] [address] Care Team Providers Care Deflector Operator Name Role Phone Newton Verdugo DO Primary Care Provider [phone] Encounter Details Date Type Department Care Team (Late Contact Info) Description 06/06/2023 Orders Only [facility] - Family Medicine [address] [place] [address] Newton Verduog DO [address] [place] [address] Social History Tobacco Use Types Packs/Day Years [...] Department Care Team (Late Contact Info) Description 09/30/2025 8:20 AM EST Office Visit [facility], A Department of [facility] [address] [facility] [address] [place] [address] Nick Bailey MD [address] [place] [address] 02/24/2026 3:00 PM EDT Ophthalmology Imaging [facility] [address] [place] [address] 02/24/2026 3:10 PM EDT Office Visit [facility] [address] [place] [address] Newton Thakur MD [address] [place] [address] documented as of this encounter Visit Diagnoses Not on filedocumented in this encounter Additional Health Concerns Assessment Noted Time PHQ-9 Depression Total Score: 0 03/03/20 23 8:51 AM EDT documented as of this encounter Care Teams Deflector Operator Relationship Specialty Start Date End Date Newton Verdugo DO [address] [place] [address] PCP - General Internal Medicine 08/24/21 documented as of this encounter
--- OUTSIDE RECORDS SUMMARY | 2025-09-03 10:24 | XMS_ITS | Encounter Summary ---
Author Organization [facility] Address [address] [place] [address] Care Team Providers Care Appeals Assistant Name Role Phone Unavailable Primary Care Provider Unavailabl e Reason for Visit * Reason Comments Med Refill Encounter Details Date Type Department Care Team (Late st Contact Info) Description 06/06/2023 [facility] [address] [place] [address] Shelby Black, FOOD PRODUCTS SALES REPRESENTATIVE-MEDICATION AID [address] [place] [address] Seborrheic dermatitis Social History Tobacco [...] Office Visit [facility] [address] [place] [address] Shelby Black, FOOD PRODUCTS SALES REPRESENTATIVE-MEDICATION AID [address] [place] [address] documented as of this encounter Visit Diagnoses Diagnosis Seborrheic dermatitis Unspecified seborrheic dermatitis documented in this encounter
--- OUTSIDE RECORDS SUMMARY | 2025-09-03 10:24 | XMS_ITS | Encounter Summary ---
Author Organization [employer] Sys [employer] Address [facility] [place][id number] [address] [place] [address] Care Team Providers Care Soft Work Cigar Machine Operator Name Role Phone Newton Verdugo DO Primary Care Provider [phone] Reason for Visit * Reason Comments Med Refill Encounter Details Date Type Department Care Team (Late st Contact Info) Description 02/16/2023 Refill [facility] - Family Medicine [address] [place] [address] Newton Verdugo DO [address] [place] [address] Diabetic peripheral neuropathy ([facility] Social History Tobacco Use Types Packs/Day [...] Office Visit [facility], A Department of [facility] [address] [place] [address] Nick Bailey MD [address] [place] [address] 02/24/2026 3:00 PM EDT Ophthalmology Imaging [facility] [address] [place] [address]/24/2026 3:10 PM EDT Office Visit [facility] [address] [place] [address] Newton Thakur MD [address] [place] [address] documented as of this encounter Visit Diagnoses Diagnosis Diabetic peripheral neuropathy ([facility]) Type II or unspecified type diabetes mellitus with neurological manifestations, not stated as uncontrolled documented in this encounter Care Teams Soft Work Cigar Machine Operator Relationship Specialty Start Date End Date Newton Verdugo DO [address] [place] [address] PCP - General Internal Medicine 08/24/21 documented as of this encounter
--- OUTSIDE RECORDS SUMMARY | 2025-09-03 10:24 | XMS_ITS | Encounter Summary ---
Author Organization [facility] s tem Address [facility] [place][id number] [address] [place] [address] Care Team Providers Care Multimedia Educational Specialist Name Role Phone Netwon Verdugo DO Primary Care Provider [phone] Encounter Details Date Type Department Care Team (Late Contact Info) Description 03/14/2023 Orders Only [facility] - Family Medicine [address] [place] [address] Newton Verdugo DO [address] [place] [address] Social History Tobacco Use Types Packs/Day Years [...] [facility] [address] [place] [address] Nick Bailey MD [address] [place] [address] 02/24/2026 3:00 PM EDT Ophthalmology Imaging [facility] [address] [place] [address] [phone] 02/24/2026 3:10 PM EDT Office Visit [facility] [address] [place] [address] Newton Thakur MD [address] [place], [place] [address] documented as of this encounter Visit Diagnoses Not on filedocumented in this encounter Additional Health Concerns Assessment Noted Time PHQ-9 Depression Total Score: 0 03/03/20 23 8:51 AM EDT documented as of this encounter Care Teams Multimedia Educational Specialist Relationship Specialty Start Date End Date Newton Verdugo DO [address] [place] [address] PCP - General Internal Medicine 08/24/21 documented as of this encounter
--- OUTSIDE RECORDS SUMMARY | 2025-09-03 10:24 | XMS_ITS | Encounter Summary ---
Author Organization [facility] Access Information [employer] s tem Address [facility] [id number] [address] [place] [address] Care Team Providers Care Explosive Ordnance Manager Name Role Phone Newton Verdugo DO Primary Care Provider [phone] Encounter Details Date Type Department Care Team (Late Contact Info) Description 08/20/2022 Orders Only [facility] - Family Medicine [address] [place] [address] Newton Verdugo DO [address] [place] [address] Social History Tobacco Use Types Packs/Day Years [...] Office Visit [facility], A Department of [facility] [address] [facility] [address] [place] [address] Nick Bailey MD [address], [facility] 1 [place] [address] 02/24/2026 3:00 PM EDT Ophthalmology Imaging [facility] [address] [place] [address] [phone] 02/24/2026 3:10 PM EDT Office Visit [facility] [address] [place] [address] Newton Thakur MD [address] [place] [address] documented as of this encounter Visit Diagnoses Not on filedocumented in this encounter Care Teams Explosive Ordnance Manager Relationship Specialty Start Date End Date Nweton Verdugo DO [address] [place] [address] PCP - General Internal Medicine 08/24/21 documented as of this encounter
--- OUTSIDE RECORDS SUMMARY | 2025-09-03 10:24 | XMS_ITS | Encounter Summary ---
Author Organization [facility] Sys tem Address [facility] [id number] [address] [place] [address] Care Team Providers Care Metal Solderer Name Role Phone Newton Verdugo DO Primary Care Provider [phone] Reason for Visit * Reason Comments Med Refill Encounter Details Date Type Department Care Team (Late st Contact Info) Description 08/20/2022 Refill [facility] - Family Medicine [address] [place] [address] Newton Verdugo DO [address] [place] [address] Diabetic peripheral neuropathy ([facility]) (Primary Dx); Type 1 diabetes mellitus with nephropathy ([facility]) Social History Tobacco Use Types Packs/Day Years [...] Office Visit [facility], A Department of [facility] [address] [facility] [address] [place] [address] Nick Bailey MD [address] [place] [address] 02/24/2026 3:00 PM EDT Ophthalmology Imaging [facility] [address] [place] [address] 02/24/2026 3:10 PM EDT Office Visit [facility] [address] [place] [address] Newton Thakur MD [address] [place] [address] documented as of this encounter Visit Diagnoses Diagnosis Diabetic peripheral neuropathy (CMS-HCC)- Primary Type II or unspecified type diabetes mellitus with neurological manifestations, not stated as uncontrolled 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
--- OUTSIDE RECORDS SUMMARY | 2025-09-03 10:24 | XMS_ITS | Encounter Summary ---
Author Organization [facility] [employer] Sys tem Address [facility] [id number] [address] [place] [address] Care Team Providers Care Director Of Quantitative Research Name Role Phone Newton Verdugo DO Primary Care Provider [phone] Reason for Visit * Reason Comments Med Refill Encounter Details Date Type Department Care Team (Late st Contact Info) Description 10/07/2022 Refill [facility] - Family Medicine [address] [place] [address] Lisa Winter, TONY-HOME ENERGY RATER [address] [place] [address] Social History Tobacco Use Types Packs/Day Years [...] Office Visit [facility], A Department of [facility] [address] [place] [address] Nick Bailey MD [address], [facility] 1 [place] [address] 02/24/2026 3:00 PM EDT Ophthalmology Imaging [facility] [address] [place] [address] 02/24/2026 3:10 PM EDT Office Visit [facility] [address] [place] [address] Newton Thakur MD [address] [place] [address] documented as of this encounter Visit Diagnoses Not on filedocumented in this encounter Care Teams Director Of Quantitative Research Relationship Specialty Start Date End Date Newton Verdugo DO [address] [place] [address] PCP - General Internal Medicine 08/24/21 documented as of this encounter
--- OUTSIDE RECORDS SUMMARY | 2025-09-03 10:24 | XMS_ITS | Clinical Summary ---
Author Organization [facility] Address [address] [place] [address] Care Team Providers Care Hydraulic Miner Name Role Phone Unavailable Primary Care Provider Unavailabl e Source Comments The following information is NOT included in Care Everywhere downloads:Psychiatric notes, ECG results, Cardiac Rehab notes, Pulmonary Function notes, data from SmartForms (includes but not limited toPregnancy data,audiograms, eye exams, pre-surgical evaluation notes, well-child exam data).[facility] Social History Tobacco Use Types Packs/Day Years [...]
--- OUTSIDE RECORDS SUMMARY | 2025-09-03 10:24 | XMS_ITS | Encounter Summary ---
Author Organization [facility] [employer] Sys tem Address [facility] [place][id number] [address] [place] [address] Care Team Providers Care Special Effects Person Name Role Phone Newton Verdugo DO Primary Care Provider [phone] Reason for Visit * Reason Comments Med Refill Encounter Details Date Type Department Care Team (Late st Contact Info) Description 11/03/2022 Refill [facility] Medicine [address] [place] [address] Lisa Winter, TONY-PRODUCTION SUPPORT DEVELOPER [address] [address] Neuropathy (Primary Dx) Social History Tobacco Use [...] Office Visit [facility], A Department of [facility] [address] [place] [address] Nick Bailey MD [address], [facility] [address] [place], [place] [address] [phone] 02/24/2026 3:00 PM EDT Ophthalmology Imaging [facility] [address] [place] [address] 02/24/2026 3:10 PM EDT Office Visit [facility] [address] [place] [address] Newton Thakur MD [address] [place] [address] documented as of this encounter Visit Diagnoses Diagnosis Neuropathy- Primary Mononeuritis of unspecified site documented in this encounter Care Teams Special Effects Person Relationship Specialty Start Date End Date Newton Verdugo DO [address] [place] [address] PCP - General Internal Medicine 08/24/21 documented as of this encounter
--- OUTSIDE RECORDS SUMMARY | 2025-09-03 10:24 | XMS_ITS | Encounter Summary ---
Author Organization [facility] s tem Address [facility] [id number] [address] [place] [address] Care Team Providers Care Ring Packer Name Role Phone Newton Verdugo DO Primary Care Provider [phone] Encounter Details Date Type Department Care Team (Late st Contact Info) Description 12/13/2023 Orders Only [facility] - Family Medicine [address] [place] [phone] Newton Verdugo DO [address] [place] [address] Social History Tobacco Use Types Packs/Day Years [...] Office Visit [facility], [facility] Department of [facility] [address] [place] [address] Nick Bailey MD [address] [place] [address] 02/24/2026 3:00 PM EDT Ophthalmology Imaging [facility] [address] [place] [address] 02/24/2026 3:10 PM EDT Office Visit [facility] [address] [place] [address] Newton Thakur MD [address] [place], [place] [phone] documented as of this encounter Visit Diagnoses Not on filedocumented in this encounter Additional Health Concerns Assessment Noted Time PHQ-9 Depression Total Score: 0 08/23/20 23 8:51 AM EDT documented as of this encounter Care Teams Ring Packer Relationship Specialty Start Date End Date Newton Verdugo DO [address] [place] [address] PCP - General Internal Medicine 08/24/21 documented as of this encounter
--- OUTSIDE RECORDS SUMMARY | 2025-09-03 10:24 | XMS_ITS | Encounter Summary ---
Author Organization [facility] [employer] s tem Address [facility] [id number] [address] [place] [address] Care Team Providers Care Employment Evaluator/Case Manager Name Role Phone Newton Verdugo DO Primary Care Provider [phone] Encounter Details Date Type Department Care Team (Late Contact Info) Description 12/06/2022 Orders Only [facility] - Family Medicine [address] [place] [phone] Newton Verdugo DO [address] [place] [address] Social History Tobacco Use Types Packs/Day Years [...] [facility] [address] [facility] [address] [place] [address] Nick Bailey MD [address], [email or web address] [address] [place] [address] 02/24/2026 3:00 PM EDT Ophthalmology Imaging [facility] [address] [place] [address] [phone] 02/24/2026 3:10 PM EDT Office Visit [facility] [address] [place] [address] Newton Thakur MD [address] [place] [address] documented as of this encounter Visit Diagnoses Not on filedocumented in this encounter Care Teams Employment Evaluator/Case Manager Relationship Specialty Start Date End Date Newton Verdugo DO [address] [place] [address] PCP - General Internal Medicine 08/24/21 documented as of this encounter
--- OUTSIDE RECORDS SUMMARY | 2025-09-03 10:24 | XMS_ITS | Encounter Summary ---
Author Organization [employer] Address [id number] [address] [place] [address] Care Team Providers Care Hosiery Knitter Name Role Phone Newton Verdugo Primary Care Provider [phone] Encounter Details Date Type Department Care Team (Late st Contact Info) Description 03/21/2023 Orders Only [facility] - Family Medicine [address] [place] [phone] Emeli Gonsalves CMA Spinal stenosis of lumbar [...] [facility], [facility] Department of [facility] [address] [place] [address] Nick Bailey MD [address] [place] [address] 02/24/2026 3:00 PM EDT Ophthalmology [facility] [address] [place] [address]/24/2026 3:10 PM EDT Office [facility] [address] [place] [address] Newton Thakur MD [address] [place] [address] (Work) documented as of this encounter Procedures [...] documented as of this encounter Care Teams Hosiery Knitter Relationship Specialty Start Date End Date Newton Verdugo DO [facility] [place] [address] PCP - General Internal Medicine 08/24/21 documented as of this encounter
--- OUTSIDE RECORDS SUMMARY | 2025-09-03 10:24 | XMS_ITS | Encounter Summary ---
Author Organization [facility] Address [address] [place] [address] Care Team Providers Care Home Decorator Name Role Phone Unavailable Primary Care Provider Unavailabl e Reason for Visit * Reason Comments Med Refill Encounter Details Date Type Department Care Team (Late st Contact Info) Description 10/12/[address] [facility] Dermatology [address] [facility] [address] [place] [address] Shelby Black, TONY-NURSERY HELPER [address] [facility] [address] [place] [address] Other atopic dermatitis Social History Tobacco Use [...] Dermatology [address] [place] [address] Shelby Black, TONY-NURSERY HELPER [address] [place] [address] documented as of this encounter Visit Diagnoses Diagnosis Other atopic dermatitis documented in this encounter
--- OUTSIDE RECORDS SUMMARY | 2025-09-03 10:24 | XMS_ITS | Encounter Summary ---
Author Organization [employer] Address [facility] [id number] [address] [place] [address] Care Team Providers Care Contour Band Saw Operator Vertical Name Role Phone Newton Verdugo Primary Care Provider [phone] Reason for Visit * Reason Onset Date Comments Med Refill 05/24/2024 Encounter Details Date Type Department Care Team (Late st Contact Info) Description 05/24/2024 Refill [facility] - Family Medicine [address] [place] [address] Sena Gregg CMA Diabetic peripheral neuropathy ([facility]) Social History Tobacco Use Types Packs/Day [...] Description 09/30/2025 8:20 AM EST Office Visit [facility] Department of [facility] [address] [place] [address] Nick Bailey MD [address] [place] [address] 02/24/2026 3:00 PM EDT Ophthalmology Imaging [facility] [address] [place] [phone] 02/24/2026 3:10 PM EDT Office Visit [facility] [address] [place] [address] Newton Thakur MD [address] [place], [place] [phone] documented as of this encounter Visit Diagnoses Diagnosis Diabetic peripheral neuropathy ([facility]) Type II or unspecified type diabetes mellitus with neurological manifestations, not stated as uncontrolled documented in this encounter Additional Health Concerns Assessment Noted Time PHQ-9 Depression Total Score: 0 01/12/20 24 9:53 AM EST documented as of this encounter Care Teams Contour Band Saw Operator Vertical Relationship Specialty Start Date End Date Newton Verdugo DO [facility] [place] [place] [address] PCP - General Internal Medicine 08/24/21 documented as of this encounter
--- OUTSIDE RECORDS SUMMARY | 2025-09-03 10:24 | XMS_ITS | Encounter Summary ---
Author Organization [employer] s tem Address [facility] [id number] [address] [place] [address] Care Team Providers Care Car Driver Name Role Phone Newton Verdugo Primary Care Provider [phone] Encounter Details Date Type Department Care Team (Late st Contact Info) Description 10/18/2023 [facility]phone [facility] [address] [place] [address] Peggy Sheridan CMA Social History Tobacco Use [...] Description 09/30/2025 8:20 AM EST [facility] Visit [facility] Department of [facility] [address] [place] [address] Nick Bailey MD [address] [place] [address] 02/24/2026 3:00 PM EDT Ophthalmology Imaging [facility] [address] [place] [address]/24/2026 3:10 PM EDT Office Visit [facility] [address] [place] [address] Newton Thakur MD [address] [place] [address] documented as of this encounter Visit Diagnoses Not on filedocumented in this encounter Additional Health Concerns Assessment Noted Time PHQ-9 Depression Total Score: 0 08/23/20 23 8:51 AM EDT documented as of this encounter Care Teams Car Driver Relationship Specialty Start Date End Date Newton Verdugo DO [address] [place] [address] PCP - General Internal Medicine 08/24/21 documented as of this encounter
--- OUTSIDE RECORDS SUMMARY | 2025-09-03 10:24 | XMS_ITS | Encounter Summary ---
Author Organization [facility] [employer] Address [facility] [place] [place]-[id number] [address] [place] [address] Care Team Providers Care Metal Stud Framer Name Role Phone Newton Verdugo DO Primary Care Provider [phone] Encounter Details Date Type Department Care Team (Late Contact Info) Description 07/14/2023 Orders Only [facility] - Family Medicine [address] [place] [address] External, Scanning Provider Social History Tobacco Use [...] of [facility] [address] [facility] [address] [place] [address] Nick Bailey MD [address], [facility] [address] [place] [address] 02/24/2026 3:00 PM EDT Ophthalmology Imaging [facility] [address] [place] [phone] 02/24/2026 3:10 PM EDT Office Visit [facility] [address] [place] [address] Newton Thakur MD [address] [place], [place] [address] [phone] documented as of this encounter Procedures Procedure [...] documented as of this encounter Care Teams Metal Stud Framer Relationship Specialty Start Date End Date Newton Verdugo DO [address] [place] [address] PCP - General Internal Medicine 08/24/21 documented as of this encounter
--- OUTSIDE RECORDS SUMMARY | 2025-09-03 10:27 | XMS_ITS | CCD ---
Author Organization [facility] Care Team Providers Care Technical Aid Name Role Phone Sherrill Carlin Primary Care Provider [phone] Sherrill Carlin Attending Provider DO Sherrill Carlin Primary Care Provider [phone] DO Sherrill Carlin Attending Provider [phone] MD Buddy Jean Attending Provider [phone] Buddy Jean Unavailable DR SHERRILL CARLIN Attending Unavailable RAEGAN, DR MCCARTNEY Admitting Unavailable RAEGAN, DR MCCARTNEY Primary Care Unavailable RAEGAN, DR MCCARTNEY Consulting Unavailable JOSS SOARES Consulting Unavailable IVORY KING Consulting Unavailable DO Sherrill Carlin Primary Care Provider [phone] MD Buddy Jean Attending Provider [phone] SHERRILL CARLIN Referring Unavailable SHERRILL CARLIN Primary Care Unavailable DO Sherrill Carlin Primary Care Provider [phone] TONY Avila Attending Provider DO Sherrill Carlin Primary Care Provider [phone] MD Buddy Jean Attending Provider Unavailable Primary Care Provider UnavailGHANSHYAM Sofia Attending Unavailable Sherrill Carlin DO Primary Care Provider Buddy Jean MD Attending Provider Sherrill Carlin DO Primary Care Provider [phone] Sherrill Carlin DO Primary Care Provider [phone] Sherrill Carlin DO Primary Care Provider Apolinar Kelly MD Attending Provider [phone] Attending Provider Unavailable Domius Rodger JIMENEZ Attending Provider [phone] Yuhas, Sherrill Primary Care Unavailable Mapus, Tondra [...] sources) Shellfish Propensity to adverse reactions 8 [facility] Other (1 source) Morphine Drug Allergy 4 [facility] (1 source) Shellfish Drug allergy (disorder) 4 [facility] (20 sources) brimonidine; Translations: [BRIMONIDINE] Drug Allergy 2 [facility] (20 sources) Morphine; Translations: [MORPHINE SULFATE] Drug Allergy 2 [facility] (2 sources) SHELLFISH CONTAINING PRODUCTS; Translations: [SHELLFISH CONTAINING PRODUCTS] Propensity to adverse reactions to food (disorder) 8 [facility] (20 sources) Shellfish; Translations: [shellfish derived] Allergy to substance 4 dizziness [facility] (3 sources) Shellfish Propensity to adverse reactions 8 [facility] (1 source) Morphine Drug Allergy 5 [facility] Medications Current Medications Medication Drug Class(es) [...] th every twenty-four hours Biotin Maximum Strength 91208 MCG 1 capsule Orally Once a day [...] Active ergocalciferol ( Vitamin D-2) 1.25 MG (13823 UT) capsule Take 50,000 Units by mouth. [...] Indications: Type 1 diabetes mellitus with nephropathy ([facility]) USE 60 UNITS DAILY VIA [...] 300 MG capsule Take by mouth. Active ycrod-qnatl-2-dh z-ptl-rlsqro (KRILL OIL) 498-45-18-50 mg capsule Take by mouth. Active jqqxu-afecn-1-dh r-moy-ixvvst (KRILL OIL) 035-29-93-50 mg capsule Take by mouth. 0 Active [...] 2024 10:08am orally tid; Biotin Maximum Strength 64254 MCG (1 source) take 1 capsule by mouth once daily Biotin Maximum Strength 44250 MCG 1 capsule Orally Once a day [...] needed. 11/19/2024 Discontinued (Patient Stopped On Own) olcyythgd-W1-kgT65-algal oil (FOLTANX RF/MENTAX) 3 mg-35 mg-2 mg -90.314 mg capsule (16 sources) End: 11-19-2024 nurpefhyu-F0-cpH09-algal oil (FOLTANX RF/MENTAX) 3 mg-35 mg-2 mg -90.314 mg capsule Metanx (algal oil) 3 mg-35 mg-2 mg-90.314 mg capsule 11/19/2024 Discontinued (Patient Stopped On Own) rejnivkdp-O8-rdI 12-algal oil (FOLTANX RF/MENTAX) 3 mg-35 mg-2 mg -90.314 mg capsule Metanx (algal oil) 3 mg-35 mg-2 mg-90.314 mg capsule Active yzbwqklcc-O1-plO 12-algal oil (FOLTANX RF/MENTAX) 3 mg-35 mg-2 [...] mL pre-filled syringes) [place] [address] mg powder for oral suspension (20 sources) [...] sources) Long-term current use of insulin; 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] 04-30-2024 Episodic Other aftercare (9 sources) termite control technician (current) use of insulin; Translations: [Long-term (current) [...] 06-05-2025 HbA1c (Bld) [Mass fraction] 7.2 % [facility] No Panel InformationOrdered By: Rodger Avila on 06-05-2025 Bedside Glucose 162 [facility] Alanine aminotransferase [En zymatic activity/volume] in Serum or PlasmaOrdered By: Rodger Avila on 06-03-2025 ALT [Catalytic activity/Vol] 13 U/L 7-52 [facility] Comment on above: Performed By: #### T SH3 wRFLX, LIPID, URMACRERAT, CMP #### [facility] [address] Albumin [Mass/volume] in Ser um or Plasma by Bromocresol green (BCG) dye binding methoOrdered By: Rodger Avila on 06-03-2025 Albumin BCG dye [Mass/Vol] 3.7 g/dL 3.5-5.7 [facility] Alkaline phosphatase [Enzyma tic activity/volume] in Serum or PlasmaOrdered By: Rodger Avila on 06-03-2025 ALP [Catalytic activity/Vol] 77 U/L 34-104 [facility] Comment on above: Performed By: #### T SH3 wRFLX, LIPID, URMACRERAT, CMP #### [facility] [address] Aspartate aminotransferase [ Enzymatic activity/volume] in Serum or PlasmaOrdered By: Tondra Mapus on 06-03-2025 AST [Catalytic activity/Vol] 21 U/L 13-39 [facility] Comment on above: Performed By: #### T SH3 wRFLX, LIPID, URMACRERAT, CMP #### [facility] [address] Bilirubin.total [Mass/volume ] in Serum or PlasmaOrdered By: Tondra Mapus on 06-03-2025 Bilirubin [Mass/Vol] 0.5 mg/dL 0.3-1.0 [facility] Comment on above: Performed By: #### T SH3 wRFLX, LIPID, URMACRERAT, CMP #### [facility] [address] Calcium [Mass/volume] in Ser um or PlasmaOrdered By: Tondra Mapus on 06-03-2025 Calcium [Mass/Vol] 9.6 mg/dL 8.6-10.3 [facility] Comment on above: Performed By: #### T SH3 wRFLX, LIPID, URMACRERAT, CMP #### [facility] [address] [place] [address] [place] Carbon dioxide, total [Moles /volume] in Serum or PlasmaOrdered By: Tondra Mapus on 06-03-2025 CO2 [Moles/Vol] 31.3 mmol/L High 21.0-31.0 [facility] Comment on above: Performed By: #### T SH3 wRFLX, LIPID, URMACRERAT, CMP #### [facility] [address] [place] [address] [place] Chloride [Moles/volume] in S violetta or PlasmaOrdered By: Tondra Mapus on 06-03-2025 Chloride [Moles/Vol] 107 mmol/L 98-107 [facility] Comment on above: Performed By: #### T SH3 wRFLX, LIPID, URMACRERAT, CMP #### [facility] [address] [place] [address] [place] Cholesterol [Mass/volume] in Serum or PlasmaOrdered By: Rodger Avila on 06-03-2025 Cholesterol [Mass/Vol] 217 mg/dL High 140-200 [facility] Comment on above: Chol less than 200 m g/dl low riskChol 201-239 mg/dl borderline riskChol 240 mg/dl and greater high risk Result Comment: Chol less than 200 mg/dl low risk Chol 201-239 mg/dl borderline risk Chol 240 mg/dl and greater high risk Performed By: #### T SH3 wRFLX, LIPID, URMACRERAT, CMP #### [facility] [address] [place] [address] [place] Cholesterol in HDL [Mass/vol ume] in Serum or PlasmaOrdered By: Rodger Avila on 06-03-2025 Cholesterol in HDL [Mass/Vol] 66 mg/dL 23-92 [facility] Comment on above: HDL CHOL ATP-III CLA SSIFICATION Cardiovascular RiskHDL > or equal to 60 mg/dL LOWHDL < 40 mg/dL HIGH Result Comment: HDL CHOL ATP-III CLASSIFICATION Cardiovascular Risk HDL > or equal to 60 mg/dL LOW HDL < 40 mg/dL HIGH Performed By: #### T SH3 wRFLX, LIPID, URMACRERAT, CMP #### [facility] [address] [place] [id number] [place] Cholesterol in LDL Calc [Mas s/Vol]Ordered By: Rodger Avila on 06-03-2025 Cholesterol in LDL [Mass/Vol] 132 mg/dL High 0-100 [facility] Comment on above: LDL ATP III CLASSIFI CATIONLDL less than 100 mg/dL OptimalLDL 100-129 mg/dL Near or above optimalLDL 130-159 mg/dL Borderline highLDL 160-189 mg/dL HighLDL greater than 189 mg/dL Very high Cholesterol in VLDL Calc [Ma ss/Vol]Ordered By: Rodger Avila on 06-03-2025 Cholesterol in VLDL [Mass/Vol] 18 mg/dL [facility] Comprehensive Metabolic Pane bill 06-03-2025 Albumin [Mass/Vol] 3.7 g/dL Normal 3.5-5.7 [facility] Comment on above: Performed By: #### T SH3 wRFLX, LIPID, URMACRERAT, CMP #### [facility] [address] GFR/1.73 sq M.predicted MDRD (S/P/Bld) [Vol rate/Area] mL/min/{1.73_m2} Normal [facility] Comment on above: Performed By: #### T SH3 wRFLX, LIPID, URMACRERAT, CMP #### [facility] [address] Creatinine [Mass/volume] in Serum or PlasmaOrdered By: Rodger Avila on 06-03-2025 Creatinine [Mass/Vol] 1.07 mg/dL 0.60-1.20 [facility] Comment on above: Performed By: #### T SH3 wRFLX, LIPID, URMACRERAT, CMP #### [facility] [address] Creatinine [Mass/volume] in UrineOrdered By: Rodger Avila on 06-03-2025 Creatinine (U) [Mass/Vol] 181.00 mg/dL [facility] Comment on above: No reference range e stablished Glucose [Mass/volume] in Ser um or PlasmaOrdered By: Rodger Avila on 06-03-2025 Glucose [Mass/Vol] 129 mg/dL High 70-100 [facility] Comment on above: ADA recommended refe rence rangeRandom Glucose Reference Range is dependent on time and content of last meal. Glucose of more than 200 mg/dL in a nonstressed, ambulatory subject supports the diagnosis of Diabetes Mellitus. Result Comment: [place] om Glucose Reference Range is dependent on time and content of last meal. Glucose of more than 200 mg/dL in a nonstressed, ambulatory subject supports the diagnosis of Diabetes Mellitus. ADA recommended reference range Performed By: #### T SH3 wRFLX, LIPID, URMACRERAT, CMP #### [facility] [address] [place] [address] [facility] Lipid Panelon 06-03-2025 LDL Cholesterol,Calculated 132 mg/dL High 0-100 [facility] Comment on above: Result Comment: LDL ATP III CLASSIFICATION LDL less than 100 mg/dL Optimal LDL 100-129 mg/dL Near or above optimal LDL 130-159 mg/dL Borderline high LDL 160-189 mg/dL High LDL greater than 189 mg/dL Very high Performed By: #### T SH3 wRFLX, LIPID, URMACRERAT, CMP #### [facility] [address] [place] [id number] [facility] Triglyceride w/Reflex 93 mg/dL Normal 0-149 [facility] Comment on above: Result Comment: TRIG ATP III CLASSIFICATION TRIG less than 150 mg/dL Normal TRIG 150-199 mg/dL Borderline high TRIG 200-500 mg/dL High TRIG greater than 500 mg/dL Very high Standard traceable to the Center for Disease Conrtrol and Prevention (CDC) test method. Performed By: #### T SH3 wRFLX, LIPID, URMACRERAT, CMP #### [facility] [address] [place] [id number] [facility] VLDL CHOLESTEROL 18 mg/dL Normal [facility] Comment on above: Performed By: #### T SH3 wRFLX, LIPID, URMACRERAT, CMP #### [facility] [address] [place] [id number] [place] MicroAlb Creat Ratio,Uon Creatinine, Urine (Random) 181.00 mg/dL Normal [facility] Comment on above: Result Comment: No r eference range established Performed By: #### T SH3 wRFLX, LIPID, URMACRERAT, CMP #### [facility] [address] [place] [id number] [facility] Microalbumin/Creatinine Ratio 15.5 mg/g Normal 0.0-30.0 [facility] Comment on above: Result Comment: 30-3 00 mg/g indicates an increased risk for diabetic nephropathy. Greater than 300 mg/g is consistent with clinical nephropathy. (Am. J. Kidney Disease 1995, 25:107) PERFORMED BY: [place] [address] PATHOLOGIST HUMAN RESOURCES OFFICE MANAGER LINDA AZEVEDO M.D. Performed By: #### T SH3 wRFLX, LIPID, URMACRERAT, CMP #### [address] Microalbumin [Mass/volume] i n UrineOrdered By: Tondra Mapus on 06-03-2025 Albumin DL <= 20 mg/L (U) [Mass/Vol] 2.8 mg/dL High 0.0-1.8 [facility] Comment on above: Performed By: #### T SH3 wRFLX, LIPID, URMACRERAT, CMP #### [address] No Panel InformationOrdered By: Tondra Mapus on 06-03-2025 Estimated GFR (CKD-EPI) > 60.0 mL/Min [facility] Creatinine Clearance (Chem N/A [facility] Potassium [Moles/volume] in Serum or PlasmaOrdered By: Tondra Mapus on 06-03-2025 Potassium [Moles/Vol] 5.1 mmol/L 3.5-5.1 [facility] Comment on above: Performed By: #### T SH3 wRFLX, LIPID, URMACRERAT, CMP #### [facility] [address] [place] [address] Protein [Mass/volume] in Ser um or PlasmaOrdered By: Tondra Mapus on 06-03-2025 Protein [Mass/Vol] 6.6 g/dL 6.4-8.9 [facility] Comment on above: Performed By: #### T SH3 wRFLX, LIPID, URMACRERAT, CMP #### [facility] [address] [place] [address] Serum globulin measurement b y calculation (mass/volume)Ordered By: Tondra Mapus on 06-03-2025 Globulin (S) [Mass/Vol] 2.9 g/dL [facility] Comment on above: Performed By: #### T SH3 wRFLX, LIPID, URMACRERAT, CMP #### [facility] [address] [place] [address] Serum or plasma albumin/glob ulin mass ratioOrdered By: Tondra Mapus on 06-03-2025 Albumin/Globulin [Mass ratio] 1.3 {ratio} [facility] Comment on above: Performed By: #### T SH3 wRFLX, LIPID, URMACRERAT, CMP #### [facility] [address] [place] [address] Serum or plasma anion gap de terminationOrdered By: Tondra Mapus on 06-03-2025 Anion gap [Moles/Vol] 9.8 mmol/L 6.0-15.0 [facility] Comment on above: Performed By: #### T SH3 wRFLX, LIPID, URMACRERAT, CMP #### [facility] [address] [place] [address] Serum or plasma total choles terol/high density lipoprotein (HDL) cholesterol mass ratOrdered By: Tondra Mapus on 06-03-2025 Cholesterol.total/Choles terol in HDL [Mass ratio] 3.3 {ratio} <5.0 [facility] Comment on above: Performed By: #### T SH3 wRFLX, LIPID, URMACRERAT, CMP #### [facility] [address] [place] [address] Sodium [Moles/volume] in Ser um or PlasmaOrdered By: Tondra Mapus on 06-03-2025 Sodium [Moles/Vol] 143 mmol/L 136-145 [facility] Comment on above: Performed By: #### T SH3 wRFLX, LIPID, URMACRERAT, CMP #### [facility] [address] [place] [address] Thyroid Stim Hormone w/Rflxo n 06-03-2025 Thyroid Stim Hormone w/Rflx 2.06 u[iU]/mL Normal 0.45-5.33 [facility] Comment on above: Result Comment: PERF ORMED BY: [place] [address] PATHOLOGIST HUMAN RESOURCES OFFICE MANAGER LINDA AZEVEDO M.D. Performed By: #### T SH3 Juan MX, LIPID, URMACRERAT, CMP #### [facility] [address] Thyrotropin [Units/volume] i n Serum or PlasmaOrdered By: Tondra Mapus on 06-03-2025 TSH Qn 2.06 m[IU]/L 0.45-5.33 [facility] Triglyceride [Mass/volume] i n Serum or PlasmaOrdered By: Tondra Mapus on 06-03-2025 Triglyceride [Mass/Vol] 93 mg/dL 0-149 [facility] Comment on above: TRIG ATP III CLASSIF ICATIONTRIG less than 150 mg/dL NormalTRIG 150-199 mg/dL Borderline highTRIG 200-500 mg/dL High TRIG greater than 500 mg/dL Very highStandard traceable to the Center for Disease Conrtrol and Prevention (CDC) test method. Urea nitrogen [Mass/volume] in Serum or PlasmaOrdered By: Tondra Domius on 06-03-2025 Urea nitrogen [Mass/Vol] 22 mg/dL 06-21 [facility] Comment on above: Performed By: #### T SH3 wRFLX, LIPID, URMACRERAT, CMP #### [address] Urine microalbumin/creatinin e mass ratioOrdered By: Tondra Austin on 06-03-2025 Albumin/Creatinine DL <= 20 mg/L (U) [Mass ratio] 15.5 mg/g 0.0-30.0 [facility] Comment on above: 30-300 mg/g indicate s an increased risk for diabetic nephropathy. Greater than 300 mg/g is consistent with clinical nephropathy. (Am. J. Kidney Disease 1995, 25:107) No Panel Informationon 02-20 OD Quality: RNFL: GCC: Status: prosthesis OS Quality: fair RNFL: moderate diffuse, artifact superiorly GCC: difficult to interpret -ERM Status: stable MANUALLY TRANSCRIBED RESULTS [facility] HbA1c HPLC (Bld) [Mass fract ion]on 02-19-2025 HbA1c (Bld) [Mass fraction] Hemoglobin A1c/Hemoglobin.total in Blood by HPLC [facility] No Panel Informationon 02-19 Bedside Glucose 206 [facility] No Panel Informationon 11-14 Bedside Glucose 150 [facility] Albumin [Mass/volume] in Ser um or Plasma by Bromocresol green (BCG) dye binding methoOrdered By: Buddy Jean on 09-21-2024 Albumin BCG dye [Mass/Vol] 3.8 g/dL 3.5-5.7 [facility] Albumin BCG dye [Mass/Vol] Albumin [Mass/volume] in Serum or Plasma by Bromocresol green (BCG) dye binding metho 3.5-5.7 [facility] Appearance of UrineOrdered B y: Buddy Jean on 09-21-2024 Appearance (U) Urine appearance Clear [facility] Bacteria [Presence] in Urine by AutomatedOrdered By: Buddy Jean on 09-21-2024 Bacteria Auto Ql (U) Rare [HPF] None Seen [facility] Bacteria Auto Ql (U) Bacteria [Presence] in Urine by Automated None Seen [facility] Bilirubin Test strip Ql (U)O rdered By: Buddy Jean on 09-21-2024 Bilirubin Ql (U) Negative Negative [facility] Bilirubin Ql (U) Bilirubin.total [Presence] in Urine by Test strip Negative [facility] Calcium [Mass/volume] in Ser um or PlasmaOrdered By: Buddy Jean on 09-21-2024 Calcium [Mass/Vol] 9.9 mg/dL Normal 8.6-10.3 [facility] Comment on above: Order Comment: Reaso n for Exam Chronic kidney disease, stage III (moderate);Type 1 diabetes Performed By: #### M G, URIC, [id number], ZEINAB, FE and TIBC, RENAL #### [facility] [address] Calcium [Mass/Vol] Calcium [Mass/volume ] in Serum or Plasma 8.6-10.3 [facility] Carbon dioxide, total [Moles /volume] in Serum or PlasmaOrdered By: Buddy Jean on 09-21-2024 CO2 [Moles/Vol] 31.0 mmol/L Normal 21.0-31.0 [facility] Comment on above: Order Comment: Reaso n for Exam Chronic kidney disease, stage III (moderate);Type 1 diabetes Performed By: #### M G, URIC, [id number], ZEINAB, FE and TIBC, RENAL #### [facility] [address] [place] [address] [place] CO2 [Moles/Vol] Carbon dioxide, tota l [Moles/volume] in Serum or Plasma 21.0-31.0 [facility] Chloride [Moles/volume] in S violetta or PlasmaOrdered By: Buddy Miranda on 09-21-2024 Chloride [Moles/Vol] 106 mmol/L Normal 98-107 [facility] Comment on above: Order Comment: Reaso n for Exam Chronic kidney disease, stage III (moderate);Type 1 diabetes Performed By: #### M G, URIC, [id number], ZEINAB, FE and TIBC, RENAL #### [facility] [address] [place] [address] [place] Chloride [Moles/Vol] Chloride [Moles/volume] in Serum or Plasma 98-107 [facility] Color Auto (U)Ordered By: Ab bijal Jean on 09-21-2024 Color (U) Color of Urine by Auto Yellow [facility] Color of Urine by AutoOrdere d By: Buddy Jean on 09-21-2024 Color (U) Yellow Normal Yellow [facility] Comment on above: Order Comment: Reaso n for Exam Chronic kidney disease, stage III (moderate);Type 1 diabetes Name Collection Type:: Clean-Voided Midstream Performed By: #### T SH3 wRFLX, LIPID, URMACRERAT, CMP #### [facility] [address] [place] [address] [place] Creatinine [Mass/volume] in Serum or PlasmaOrdered By: Buddy Miranda on 09-21-2024 Creatinine [Mass/Vol] 1.11 mg/dL Normal 0.60-1.20 [facility] Comment on above: Order Comment: Reaso n for Exam Chronic kidney disease, stage III (moderate);Type 1 diabetes Performed By: #### M G, URIC, [id number], ZEINAB, FE and TIBC, RENAL #### [facility] [address] [place] [id number] [place] Creatinine [Mass/Vol] Creatinine [Mass/volume] in Serum or Plasma 0.60-1.20 [facility] Creatinine [Mass/volume] in UrineOrdered By: Buddy Jean on 09-21-2024 Creatinine (U) [Mass/Vol] 180.00 mg/dL [facility] Comment on above: No reference range e stablished Creatinine (U) [Mass/Vol] Creatinine [Mass/volume] in Urine [facility] Comment on above: No reference range e stablished Dipstick and Microscopicon 1 Bacteria,Urine Rare Normal None Seen [facility] Comment on above: Order Comment: Reaso n for Exam Chronic kidney disease, stage III (moderate);Type 1 diabetes Name Collection Type:: Clean-Voided Midstream Performed By: #### T SH3 wRFLX, LIPID, URMACRERAT, CMP #### [facility] [address] [place] [id number] [place] Bilirubin,Urine Negative Normal Negative [facility] Comment on above: Order Comment: Reaso n for Exam Chronic kidney disease, stage III (moderate);Type 1 diabetes Name Collection Type:: Clean-Voided Midstream Performed By: #### T SH3 wRFLX, LIPID, URMACRERAT, CMP #### [facility] [address] [place] [id number] [place] Glucose Ql (U) Normal Normal Normal [facility] Comment on above: Order Comment: Reaso n for Exam Chronic kidney disease, stage III (moderate);Type 1 diabetes Name Collection Type:: Clean-Voided Midstream Performed By: #### T SH3 wRFLX, LIPID, URMACRERAT, CMP #### [facility] [address] [place] [address] [place] Hyaline Casts,Urine 0-8 Normal 0-8 [facility] Comment on above: Order Comment: Reaso n for Exam Chronic kidney disease, stage III (moderate);Type 1 diabetes Name Collection Type:: Clean-Voided Midstream Performed By: #### T SH3 wRFLX, LIPID, URMACRERAT, CMP #### [facility] [address] [place] [address] [place] Mucus,Urine Rare Normal [facility] Comment on above: Order Comment: Reaso n for Exam Chronic kidney disease, stage III (moderate);Type 1 diabetes Name Collection Type:: Clean-Voided Midstream Result Comment: PERF ORMED BY: [place] [address] PATHOLOGIST HUMAN RESOURCES OFFICE MANAGER VELASQUEZ CARLOS M.D. Performed By: #### T SH3 wRFLX, LIPID, URMACRERAT, CMP #### [place] [address] [place] Nitrite,Urine Negative Normal Negative [facility] Comment on above: Order Comment: Reaso n for Exam Chronic kidney disease, stage III (moderate);Type 1 diabetes Name Collection Type:: Clean-Voided Midstream Performed By: #### T SH3 wRFLX, LIPID, URMACRERAT, CMP #### [facility] [address] [place] [address] [place] Occult Blood,Urine Negative Normal Negative [facility] Comment on above: Order Comment: Reaso n for Exam Chronic kidney disease, stage III (moderate);Type 1 diabetes Name Collection Type:: Clean-Voided Midstream Performed By: #### T SH3 wRFLX, LIPID, URMACRERAT, CMP #### [facility] [address] [place] [address] [place] Protein,Urine Negative Normal Negative [facility] Comment on above: Order Comment: Reaso n for Exam Chronic kidney disease, stage III (moderate);Type 1 diabetes Name Collection Type:: Clean-Voided Midstream Performed By: #### T SH3 wRFLX, LIPID, URMACRERAT, CMP #### [address] RBC,Urine 1-2 Normal 0-4 [facility] Comment on above: Order Comment: Reaso n for Exam Chronic kidney disease, stage III (moderate);Type 1 diabetes Name Collection Type:: Clean-Voided Midstream Performed By: #### T SH3 wRFLX, LIPID, URMACRERAT, CMP #### [facility] [address] Specificy [place],Urine 1.018 Normal 1.001-1.030 [facility] Comment on above: Order Comment: Reaso n for Exam Chronic kidney disease, stage III (moderate);Type 1 diabetes Name Collection Type:: Clean-Voided Midstream Performed By: #### T SH3 wRFLX, LIPID, URMACRERAT, CMP #### [address] Squamous Epithelial Cell,Urine 5-9 High 0-2 [facility] Comment on above: Order Comment: Reaso n for Exam Chronic kidney disease, stage III (moderate);Type 1 diabetes Name Collection Type:: Clean-Voided Midstream Performed By: #### T SH3 wRFLX, LIPID, URMACRERAT, CMP #### [address] Urobilinogen,Urine Normal Normal Normal [facility] Comment on above: Order Comment: Reaso n for Exam Chronic kidney disease, stage III (moderate);Type 1 diabetes Name Collection Type:: Clean-Voided Midstream Performed By: #### T SH3 wRFLX, LIPID, URMACRERAT, CMP #### [facility] [address] [place] [address] WBC,Urine 5-9 High 0-4 [facility] Comment on above: Order Comment: Reaso n for Exam Chronic kidney disease, stage III (moderate);Type 1 diabetes Name Collection Type:: Clean-Voided Midstream Performed By: #### T SH3 wRFLX, LIPID, URMACRERAT, CMP #### [address] Epithelial cells.squamous [# /area] in Urine sediment by Automated countOrdered By: Buddy Jean on 09-21-2024 Epithelial cells.squamous Auto (Urine sed) [#/Area] 5-9 [HPF] High 0-2 [facility] Epithelial cells.squamous Auto (Urine sed) [#/Area] Epithelial cells.squamous [#/area] in Urine sediment by Automated count High 0-2 [facility] Erythrocyte distribution wid th Auto (RBC) [Ratio]Ordered By: Buddy Miranda on 09-21-2024 Erythrocyte distribution width (RBC) [Ratio] Erythrocyte distribution width [Ratio] by Automated count 11.9-15.3 [facility] Erythrocyte distribution wid th [Ratio] by Automated countOrdered By: Buddy Miranda on 09-21-2024 Erythrocyte distribution width (RBC) [Ratio] 14.0 % Normal 11.9-15.3 [facility] Comment on above: Order Comment: Reaso n for Exam Chronic kidney disease, stage III (moderate);Type 1 diabetes Performed By: #### C BCNO #### [facility] [address] [place] [address] Erythrocytes [#/area] in Uri ne sediment by Automated countOrdered By: Buddy Jean on 09-21-2024 RBC Auto (Urine sed) [#/Area] 1-2 [HPF] 0-4 [facility] RBC Auto (Urine sed) [#/Area] Erythrocytes [#/area] in Urine sediment by Automated count 0-4 [facility] Erythrocytes [#/volume] in B lood by Automated countOrdered By: Buddy Miranda on 09-21-2024 RBC (Bld) [#/Vol] 3.82 10*6/uL Normal 3.60-5.00 [facility] Comment on above: Order Comment: Reaso n for Exam Chronic kidney disease, stage III (moderate);Type 1 diabetes Performed By: #### C BCNO #### [facility] [address] [place] [address] [place] Ferritin [Mass/volume] in Se rum or PlasmaOrdered By: Buddy Griffithsr on 09-21-2024 Ferritin [Mass/Vol] 41.2 ng/mL Normal 11.0-306.8 [facility] Comment on above: Order Comment: Reaso n for Exam Chronic kidney disease, stage III (moderate);Type 1 diabetes Performed By: #### T SH3 wRFLX, LIPID, URMACRERAT, CMP #### [facility] [address] [place] [address] [facility] Ferritin [Mass/Vol] Ferritin [Mass/volume] in Serum or Plasma 11.0-306.8 [facility] Glucose [Mass/volume] in Ser um or PlasmaOrdered By: Buddy Jean on 09-21-2024 Glucose [Mass/Vol] 118 mg/dL High 70-100 [facility] Comment on above: ADA recommended refe rence rangeRandom Glucose Reference Range is dependent on time and content of last meal. Glucose of more than 200 mg/dL in a nonstressed, ambulatory subject supports the diagnosis of Diabetes Mellitus. Order Comment: Reaso n for Exam Chronic kidney disease, stage III (moderate);Type 1 diabetes Result Comment: [place] om Glucose Reference Range is dependent on time and content of last meal. Glucose of more than 200 mg/dL in a nonstressed, ambulatory subject supports the diagnosis of Diabetes Mellitus. ADA recommended reference range Performed By: #### M G, URIC, [id number], ZEINAB, FE and TIBC, RENAL #### [facility] [address] [place] [address] [place] Glucose [Mass/Vol] Glucose [Mass/volume ] in Serum or Plasma [facility] 70-100 [facility] Comment on above: ADA recommended refe rence rangeRandom Glucose Reference Range is dependent on time and content of last meal. Glucose of more than 200 mg/dL in a nonstressed, ambulatory subject supports the diagnosis of Diabetes Mellitus. Glucose [Mass/volume] in Uri ne by Test stripOrdered By: Buddy Jean on 09-21-2024 Glucose Test strip (U) [Mass/Vol] Normal mg/dL Normal [facility] Glucose Test strip (U) [Mass/Vol] Glucose [Mass/volume] in Urine by Test strip Normal [facility] Hematocrit Auto (Bld) [Volum e fraction]Ordered By: Buddy Jean on 09-21-2024 Hematocrit (Bld) [Volume fraction] Hematocrit [Volume Fraction] of Blood by Automated count 34.0-46.4 [facility] Hematocrit [Volume Fraction] of Blood by Automated countOrdered By: Buddy Jean on 09-21-2024 Hematocrit (Bld) [Volume fraction] 37.4 % Normal 34.0-46.4 [facility] Comment on above: Order Comment: Reaso n for Exam Chronic kidney disease, stage III (moderate);Type 1 diabetes Performed By: #### C BCNO #### [address] Hemoglobin Test strip Ql (U) Ordered By: Buddy Jean on 09-21-2024 Hemoglobin Ql (U) Negative Negative [facility] Hemoglobin Ql (U) Hemoglobin [Presence ] in Urine by Test strip Negative [facility] Hemoglobin [Mass/volume] in BloodOrdered By: Buddy Jean on 09-21-2024 Hemoglobin (Bld) [Mass/Vol] 12.5 g/dL Normal 11.8-15.4 [facility] Comment on above: Order Comment: Reaso n for Exam Chronic kidney disease, stage III (moderate);Type 1 diabetes Performed By: #### C BCNO #### [address] Hemoglobin (Bld) [Mass/Vol] Hemoglobin [Mass/volume] in Blood 11.8-15.4 [facility] Hemogram CBC Without Diffon 09-21-2024 Mean Corpuscular HGB Conc 33.4 g/dL Normal 32.0-35.0 [facility] Comment on above: Order Comment: Reaso n for Exam Chronic kidney disease, stage III (moderate);Type 1 diabetes Performed By: #### C BCNO #### [facility] [address] [place] [address] WBC (Bld) [#/Vol] 4.2 10*3/uL Normal 3.8-11.6 [facility] Comment on above: Order Comment: Reaso n for Exam Chronic kidney disease, stage III (moderate);Type 1 diabetes Performed By: #### C BCNO #### [address] Hyaline casts [#/area] in Ur ine sediment by Automated countOrdered By: Buddy Jean on 09-21-2024 Hyaline casts Auto (Urine sed) [#/Area] 0-8 [LPF] 0-8 [facility] Hyaline casts Auto (Urine sed) [#/Area] Hyaline casts [#/area] in Urine sediment by Automated count 0-8 [facility] Iron [Mass/volume] in Serum or PlasmaOrdered By: Buddy Griffithsr on 09-21-2024 Iron [Mass/Vol] 50 ug/dL Normal 50-212 [facility] Comment on above: Order Comment: Reaso n for Exam Chronic kidney disease, stage III (moderate);Type 1 diabetes Performed By: #### T SH3 wRFLX, LIPID, URMACRERAT, CMP #### [facility] [address] [place] [id number] [facility] Iron [Mass/Vol] Iron [Mass/volume] i n Serum or Plasma 50-212 [facility] Iron and TIBC Profileon 08-29 % Iron Saturation 17.4 % Low 20-50 [facility] Comment on above: Order Comment: Reaso n for Exam Chronic kidney disease, stage III (moderate);Type 1 diabetes Performed By: #### T SH3 wRFLX, LIPID, URMACRERAT, CMP #### [facility] [address] [place] [id number] [facility] Total Iron Binding Capacity 287 ug/dL Normal 255-450 [facility] Comment on above: Order Comment: Reaso n for Exam Chronic kidney disease, stage III (moderate);Type 1 diabetes Performed By: #### T SH3 wRFLX, LIPID, URMACRERAT, CMP #### [facility] [address] [place] [id number] [place] Iron binding capacity [Mass/ volume] in Serum or PlasmaOrdered By: Buddy Miranda on 09-21-2024 Iron binding capacity [Mass/Vol] 287 ug/dL 255-450 [facility] Iron saturation [Mass Fracti on] in Serum or PlasmaOrdered By: Buddy Miranda on 09-21-2024 Iron saturation [Mass fraction] 17.4 % Low 20-50 [facility] Ketones Test strip Ql (U)Ord ered By: Buddy Jean on 09-21-2024 Ketones Ql (U) Ketones [Presence] i n Urine by Test strip Negative [facility] Ketones [Presence] in Urine by Test stripOrdered By: Buddy Jean on 09-21-2024 Ketones Ql (U) Negative Normal Negative [facility] Comment on above: Order Comment: Reaso n for Exam Chronic kidney disease, stage III (moderate);Type 1 diabetes Name Collection Type:: Clean-Voided Midstream Performed By: #### T SH3 wRFLX, LIPID, URMACRERAT, CMP #### [facility] [address] Laboratory - Microbiology an d Antimicrobial susceptibilityOrdered By: Buddy Jean on 09-21-2024 Bacteria identified Cx Nom (U) No Growth 2 Days [facility] Leukocyte esterase [Presence ] in Urine by Test stripOrdered By: Buddy Jean on 09-21-2024 Leukocyte esterase Test strip Ql (U) 3+ High Negative [facility] Comment on above: Order Comment: Reaso n for Exam Chronic kidney disease, stage III (moderate);Type 1 diabetes Name Collection Type:: Clean-Voided Midstream Performed By: #### T SH3 wRFLX, LIPID, URMACRERAT, CMP #### [facility] [address] [place] [address] [place] Leukocyte esterase Test strip Ql (U) Leukocyte esterase [Presence] in Urine by Test strip High Negative [facility] Leukocytes [#/area] in Urine sediment by Automated countOrdered By: Buddy Jean on 09-21-2024 WBC Auto (Urine sed) [#/Area] 5-9 [HPF] High 0-4 [facility] WBC Auto (Urine sed) [#/Area] Leukocytes [#/area] in Urine sediment by Automated count High 0-4 [facility] Leukocytes [#/volume] correc man for nucleated erythrocytes in Blood by Automated counOrdered By: Buddy Jean on 09-21-2024 WBC corrected for nucl RBC Auto (Bld) [#/Vol] 4.2 10*3/uL 3.8-11.6 [facility] WBC corrected for nucl RBC Auto (Bld) [#/Vol] Leukocytes [#/volume] corrected for nucleated erythrocytes in Blood by Automated coun 3.8-11.6 [facility] MCH Auto (RBC) [Entitic mass ]Ordered By: Buddy Jean on 09-21-2024 MCH (RBC) [Entitic mass] MCH [Entitic ma ss] by Automated count 24.7-34.3 [facility] MCH [Entitic mass] by Automa man countOrdered By: Buddy Jean on 09-21-2024 MCH (RBC) [Entitic mass] 32.7 pg Normal 24.7-34.3 [facility] Comment on above: Order Comment: Reaso n for Exam Chronic kidney disease, stage III (moderate);Type 1 diabetes Performed By: #### C BCNO #### [facility] [address] [place] [address] MCHC Auto (RBC) [Mass/Vol]Or dered By: Buddy Jean on 09-21-2024 MCHC (RBC) [Mass/Vol] 33.4 g/dL 32.0-35.0 [facility] MCHC (RBC) [Mass/Vol] MCHC [Mass/volume] by Automated count 32.0-35.0 [facility] MCV Auto (RBC) [Entitic vol] Ordered By: Buddy Jean on 09-21-2024 MCV (RBC) [Entitic vol] MCV [Entitic vol ume] by Automated count 80-100 [facility] MCV [Entitic volume] by Auto mated countOrdered By: Buddy Jean on 09-21-2024 MCV (RBC) [Entitic vol] 97.9 fL Normal 80-100 [facility] Comment on above: Order Comment: Reaso n for Exam Chronic kidney disease, stage III (moderate);Type 1 diabetes Performed By: #### C BCNO #### [facility] [address] [place] [address] Magnesium [Mass/volume] in S violetta or PlasmaOrdered By: Buddy Jean on 09-21-2024 Magnesium [Mass/Vol] 2.0 mg/dL Normal 1.9-2.7 [facility] Comment on above: Order Comment: Reaso n for Exam Chronic kidney disease, stage III (moderate);Type 1 diabetes Performed By: #### M G, URIC, [id number], ZEINAB, FE and TIBC, RENAL #### [facility] [address] Magnesium [Mass/Vol] Magnesium [Mass/volume] in Serum or Plasma 1.9-2.7 [facility] Mucus [Presence] in Urine by AutomatedOrdered By: Buddy Jean on 09-21-2024 Mucus Auto Ql (U) Rare [facility]LPF[facility] Mucus Auto Ql (U) Mucus [Presence] in Urine by Automated [facility] Nitrite Test strip Ql (U)Ord ered By: Buddy Jean on 09-21-2024 Nitrite Ql (U) Negative Negative [facility] Nitrite Ql (U) Nitrite [Presence] i n Urine by Test strip Negative [facility] No Panel InformationOrdered By: Buddy Jean on 09-21-2024 Estimated GFR (CKD-EPI) 58.336 mL/Min [facility] Creatinine Clearance (Chem N/A [facility] Parathyrin.intact [Mass/volu me] in Serum or PlasmaOrdered By: Buddy Jean on 09-21-2024 Parathyrin.intact [Mass/Vol] 33.0 pg/mL [facility] Parathyrin.intact [Mass/Vol] Parathyrin.intact [Mass/volume] in Serum or Plasma [facility] Parathyroid Hormone Intacton 09-21-2024 Parathyroid Hormone Intact 33.0 pg/mL Normal [facility] Comment on above: Order Comment: Reaso n for Exam Chronic kidney disease, stage III (moderate);Type 1 diabetes Result Comment: PERF ORMED BY: [facility] [address] [place] [address] PATHOLOGIST [employer] OFFICE MANAGER VELASQUEZ CARLOS M.D. Performed By: #### P TH #### [facility] [address] [place] [address] Phosphate [Mass/volume] in S violetta or PlasmaOrdered By: Buddy Jean on 09-21-2024 Phosphate [Mass/Vol] 4.1 mg/dL Normal 2.5-4.5 [facility] Comment on above: Order Comment: Reaso n for Exam Chronic kidney disease, stage III (moderate);Type 1 diabetes Performed By: #### M G, URIC, [id number], ZEINAB, FE and TIBC, RENAL #### [facility] [address] [place] [address] Phosphate [Mass/Vol] Phosphate [Mass/volume] in Serum or Plasma 2.5-4.5 [facility] Platelet mean volume Auto (B ld) [Entitic vol]Ordered By: Buddy Miranda on 09-21-2024 Platelet mean volume (Bld) [Entitic vol] Platelet mean volume [Entitic volume] in Blood by Automated count 6.3-10.7 [facility] Platelet mean volume [Entiti c volume] in Blood by Automated countOrdered By: Buddy Miranda on 09-21-2024 Platelet mean volume (Bld) [Entitic vol] 10.2 fL Normal 6.3-10.7 [facility] Comment on above: Order Comment: Reaso n for Exam Chronic kidney disease, stage III (moderate);Type 1 diabetes Result Comment: PERF ORMED BY: [place] [address] PATHOLOGIST [employer] OFFICE MANAGER VELASQUEZ CARLOS M.D. Performed By: #### C BCNO #### [facility] [address] [place] [address] [place] Platelets Auto (Bld) [#/Vol] Ordered By: Buddy Miranda on 09-21-2024 Platelets (Bld) [#/Vol] Platelets [#/vol ume] in Blood by Automated count 150-450 [facility] Platelets [#/volume] in Bloo d by Automated countOrdered By: Buddy Miranda on 09-21-2024 Platelets (Bld) [#/Vol] 289 10*3/uL Normal 150-450 [facility] Comment on above: Order Comment: Reaso n for Exam Chronic kidney disease, stage III (moderate);Type 1 diabetes Performed By: #### C BCNO #### [facility] [address] Potassium [Moles/volume] in Serum or PlasmaOrdered By: Buddy Jean on 09-21-2024 Potassium [Moles/Vol] 4.9 mmol/L Normal 3.5-5.1 [facility] Comment on above: Order Comment: Reaso n for Exam Chronic kidney disease, stage III (moderate);Type 1 diabetes Performed By: #### M G, URIC, [id number], ZEINAB, FE and TIBC, RENAL #### [address] Potassium [Moles/Vol] Potassium [Moles/volume] in Serum or Plasma 3.5-5.1 [facility] Protein Creat Ratio Ur Rando mon 09-21-2024 Creatinine, Urine (Random) 180.00 mg/dL Normal [facility] Comment on above: Order Comment: Reaso n for Exam Chronic kidney disease, stage III (moderate);Type 1 diabetes Result Comment: No r eference range established Performed By: #### P ROCRERAT #### [address] Urine Protein/Creatinine Ratio 56 mg/g{Cre} Normal 0-200 [facility] Comment on above: Order Comment: Reaso n for Exam Chronic kidney disease, stage III (moderate);Type 1 diabetes Result Comment: PERF ORMED BY: [place] [address] PATHOLOGIST [employer] OFFICE MANAGER VELASQUEZ CARLOS M.D. Performed By: #### P ROCRERAT #### [address] Protein Test strip (U) [Mass /Vol]Ordered By: Buddy Jean on 09-21-2024 Protein (U) [Mass/Vol] Negative Negative [facility] Protein (U) [Mass/Vol] Protein [Mass/vol ume] in Urine by Test strip Negative [facility] Protein [Mass/volume] in Uri neOrdered By: Buddy Jean on 09-21-2024 Protein (U) [Mass/Vol] 10 mg/dL High 0-9 [facility] Comment on above: Order Comment: Reaso n for Exam Chronic kidney disease, stage III (moderate);Type 1 diabetes Performed By: #### P ROCRERAT #### [facility] [address] [place] [address] Protein (U) [Mass/Vol] Protein [Mass/vol ume] in Urine High 0-9 [facility] RBC Auto (Bld) [#/Vol]Ordere d By: Buddy Jean on 09-21-2024 RBC (Bld) [#/Vol] Erythrocytes [#/volume] in Blood by Automated count 3.60-5.00 [facility] Renal Function Panelon 09-21 Albumin [Mass/Vol] 3.8 g/dL Normal 3.5-5.7 [facility] Comment on above: Order Comment: Reaso n for Exam Chronic kidney disease, stage III (moderate);Type 1 diabetes Performed By: #### M G, URIC, [id number], ZEINAB, FE and TIBC, RENAL #### [place] [address] [place] GFR/1.73 sq M.predicted MDRD (S/P/Bld) [Vol rate/Area] 58.336 mL/min/{1.73_m2} Normal [facility] Comment on above: Order Comment: Reaso n for Exam Chronic kidney disease, stage III (moderate);Type 1 diabetes Performed By: #### M G, URIC, [id number], ZEINAB, FE and TIBC, RENAL #### [facility] [address] [place] [address] Serum or plasma anion gap de terminationOrdered By: Buddy Jean on 09-21-2024 Anion gap [Moles/Vol] 8.9 mmol/L Normal 6.0-15.0 [facility] Comment on above: Order Comment: Reaso n for Exam Chronic kidney disease, stage III (moderate);Type 1 diabetes Performed By: #### M G, URIC, [id number], ZEINAB, FE and TIBC, RENAL #### [place] [id number] [place] Anion gap [Moles/Vol] Serum or plasma an ion gap determination 6.0-15.0 [facility] Serum or plasma iron binding capacity measurement (mass/volume)Ordered By: Buddy Jean on 09-21-2024 Iron binding capacity [Mass/Vol] Iron binding capacity [Mass/volume] in Serum or Plasma 255-450 [facility] Serum or plasma iron saturat ion measurement (mass fraction)Ordered By: Buddy Jean on 09-21-2024 Iron saturation [Mass fraction] Iron saturation [Mass Fraction] in Serum or Plasma Low 20-50 [facility] Sodium [Moles/volume] in Ser um or PlasmaOrdered By: Buddy Jean on 09-21-2024 Sodium [Moles/Vol] 141 mmol/L Normal 136-145 [facility] Comment on above: Order Comment: Reaso n for Exam Chronic kidney disease, stage III (moderate);Type 1 diabetes Performed By: #### M G, URIC, [id number], ZEINAB, FE and TIBC, RENAL #### [facility] [address] [place] [id number] [place] Sodium [Moles/Vol] Sodium [Moles/volume ] in Serum or Plasma 136-145 [facility] Specific gravity Test strip (U) [Rel density]Ordered By: Buddy Jean on 09-21-2024 Specific gravity (U) [Rel density] 1.018 1.001-1.030 [facility] Specific gravity (U) [Rel density] Specific gravity of Urine by Test strip 1.001-1.030 [facility] Transferrin [Mass/volume] in Serum or PlasmaOrdered By: Buddy Jean on 09-21-2024 Transferrin [Mass/Vol] 205 mg/dL Normal 203-362 [facility] Comment on above: Order Comment: Reaso n for Exam Chronic kidney disease, stage III (moderate);Type 1 diabetes Performed By: #### T SH3 wRFLX, LIPID, URMACRERAT, CMP #### [facility] [address] [place] [address] [place] Transferrin [Mass/Vol] Transferrin [Mass/volume] in Serum or Plasma 203-362 [facility] Urate [Mass/volume] in Serum or PlasmaOrdered By: Buddy Jean on 09-21-2024 Urate [Mass/Vol] 6.0 mg/dL Normal 2.3-6.6 [facility] Comment on above: Order Comment: Reaso n for Exam Chronic kidney disease, stage III (moderate);Type 1 diabetes Performed By: #### M G, URIC, [id number], ZEINAB, FE and TIBC, RENAL #### [facility] [address] Urate [Mass/Vol] Urate [Mass/volume] in Serum or Plasma 2.3-6.6 [facility] Urea nitrogen [Mass/volume] in Serum or PlasmaOrdered By: Buddy Jean on 09-21-2024 Urea nitrogen [Mass/Vol] 27 mg/dL High 06-21 [facility] Comment on above: Order Comment: Reaso n for Exam Chronic kidney disease, stage III (moderate);Type 1 diabetes Performed By: #### M G, URIC, [id number], ZEINAB, FE and TIBC, RENAL #### [facility] [address] Urea nitrogen [Mass/Vol] Urea nitrogen [Mass/volume] in Serum or Plasma High 06-21 [facility] Urine Cultureon 09-21-2024 Bacteria identified Cx Nom (U) No Growth 2 Days PERFORMED BY: [place] [address] PATHOLOGIST [employer] OFFICE MANAGER VELASQUEZ CARLOS M.D. Normal [facility] Comment on above: Performed By: #### T SH3 wRFLX, LIPID, URMACRERAT, CMP #### [facility] [address] Urine appearanceOrdered By: Buddy Jean on 09-21-2024 Appearance (U) Clear Normal Clear [facility] Comment on above: Order Comment: Reaso n for Exam Chronic kidney disease, stage III (moderate);Type 1 diabetes Name Collection Type:: Clean-Voided Midstream Performed By: #### T SH3 wRFLX, LIPID, URMACRERAT, CMP #### [facility] [address] Urine cultureOrdered By: Julio Jean on 09-21-2024 Bacteria identified Cx Nom (U) Urine culture [facility] Urine protein/creatinine rat ioOrdered By: Buddy Griffithsr on 09-21-2024 Protein/Creatinine (U) [Ratio] 56 mg/g{Cre} 0-200 [facility] Protein/Creatinine (U) [Ratio] Urine protein/creatinine ratio 0-200 [facility] Urobilinogen Test strip (U) [Mass/Vol]Ordered By: Buddy Miranda on 09-21-2024 Urobilinogen (U) [Mass/Vol] Normal mg/dL Normal [facility] Urobilinogen (U) [Mass/Vol] Urobilinogen [Mass/volume] in Urine by Test strip Normal [facility] Vitamin D 25 Hydroxy Totalon 09-21-2024 Vitamin D 25 Hydroxy Total 58.0 ng/mL Normal 30-100 [facility] Comment on above: Order Comment: [...] practice guideline. JCEM. 2010; 96(7):1911-30. PERFORMED BY: [place] [address] PATHOLOGIST [employer] OFFICE MANAGER VELASQUEZ CARLOS M.D. Performed By: #### T SH3 wRFLX, LIPID, URMACRERAT, CMP #### [facility] [address] [place], [place] [id number] [facility] Vitamin D+Metabolites [Mass/ volume] in Serum or PlasmaOrdered By: Buddy Jean on 09-21-2024 Vitamin D+Metabolites [Mass/Vol] 58.0 ng/mL 30-100 [facility] Comment on above: VITAMIN D STATUS 25( [place])VITAMIN D RANGE (ng/mL) Deficient <20 Insufficient 20 to <30Sufficient 30 to 100Reference: Obed Gil, Jaimie BAKER, et al. Evaluation,treatment, and prevention of vitamin D deficiency; an Endocrine Society clinical practice guideline. [facility] [place]. 2010; 96(7):1911-30. Vitamin D+Metabolites [Mass/Vol] Vitamin D+Metabolites [Mass/volume] in Serum or Plasma 30-100 [facility] Comment on above: VITAMIN D STATUS 25( [place])VITAMIN D RANGE (ng/mL) Deficient <20 Insufficient 20 to <30Sufficient 30 to 100Reference: Obed Gil, Jaimie BAKER, et al. Evaluation,treatment, and prevention of vitamin D deficiency; an Endocrine Society clinical practice guideline. [facility] [place]. 2010; 96(7):1911-30. pH Test strip (U)Ordered By: Buddy Jean on 09-21-2024 pH (U) pH of Urine by Test strip 5.0-9.0 [facility] pH of Urine by Test stripOrd ered By: Buddy Jean on 09-21-2024 pH (U) 5.5 [pH] Normal 5.0-9.0 [facility] Comment on above: Order Comment: Reaso n for Exam Chronic kidney disease, stage III (moderate);Type 1 diabetes Name Collection Type:: Clean-Voided Midstream Performed By: #### T SH3 wRFLX, LIPID, URMACRERAT, CMP #### [facility] [address] No Panel Informationon 09-10 [facility] Alanine aminotransferase [En zymatic activity/volume] in Serum or PlasmaOrdered By: Rodger Avila on 05-14-2024 ALT [Catalytic activity/Vol] 18 U/L 7-52 [facility] Albumin [Mass/volume] in Ser um or Plasma by Bromocresol green (BCG) dye binding methoOrdered By: Rodger Avila on 05-14-2024 Albumin BCG dye [Mass/Vol] 4.0 g/dL 3.5-5.7 [facility] Alkaline phosphatase [Enzyma tic activity/volume] in Serum or PlasmaOrdered By: Rodger Avila on 05-14-2024 ALP [Catalytic activity/Vol] 79 U/L 34-104 [facility] Aspartate aminotransferase [ Enzymatic activity/volume] in Serum or PlasmaOrdered By: Rodger Avila on 05-14-2024 AST [Catalytic activity/Vol] 23 U/L 13-39 [facility] Bilirubin.total [Mass/volume ] in Serum or PlasmaOrdered By: Rodger Avila on 05-14-2024 Bilirubin [Mass/Vol] 0.4 mg/dL 0.3-1.0 [facility] Calcium [Mass/volume] in Ser um or PlasmaOrdered By: Rodger Avila on 05-14-2024 Calcium [Mass/Vol] 9.9 mg/dL 8.6-10.3 [facility] Carbon dioxide, total [Moles /volume] in Serum or PlasmaOrdered By: Rodger Avila on 05-14-2024 CO2 [Moles/Vol] 30.5 mmol/L 21.0-31.0 [facility] Chloride [Moles/volume] in S violetta or PlasmaOrdered By: Rodger Avila on 05-14-2024 Chloride [Moles/Vol] 106 mmol/L 98-107 [facility] Cholesterol [Mass/volume] in Serum or PlasmaOrdered By: Rodger Avila on 05-14-2024 Cholesterol [Mass/Vol] 157 mg/dL 140-200 [facility] Comment on above: Chol less than 200 m g/dl low riskChol 201-239 mg/dl borderline riskChol 240 mg/dl and greater high risk Cholesterol in LDL Calc [Mas s/Vol]Ordered By: Rodger Avila on 05-14-2024 Cholesterol in LDL [Mass/Vol] 76 mg/dL 0-100 [facility] Comment on above: LDL ATP III CLASSIFI CATIONLDL less than 100 mg/dL OptimalLDL 100-129 mg/dL Near or above optimalLDL 130-159 mg/dL Borderline highLDL 160-189 mg/dL HighLDL greater than 189 mg/dL Very high Cholesterol in VLDL Calc [Ma ss/Vol]Ordered By: Rodger Avila on 05-14-2024 Cholesterol in VLDL [Mass/Vol] 22 mg/dL [facility] Creatinine [Mass/volume] in Serum or PlasmaOrdered By: Rodger Avila on 05-14-2024 Creatinine [Mass/Vol] 1.15 mg/dL 0.60-1.20 [facility] Creatinine [Mass/volume] in UrineOrdered By: Rodger Avila on 05-14-2024 Creatinine (U) [Mass/Vol] 276.00 mg/dL [facility] Comment on above: No reference range e stablished Globulin Calc (S) [Mass/Vol] Ordered By: Rodger Avila on 05-14-2024 Globulin (S) [Mass/Vol] 2.8 g/dL F [facility] Glucose [Mass/volume] in Ser um or PlasmaOrdered By: Rodger Avlia on 05-14-2024 Glucose [Mass/Vol] 140 mg/dL High 70-100 [facility] Comment on above: ADA recommended refe rence rangeRandom Glucose Reference Range is dependent on time and content of last meal. Glucose of more than 200 mg/dL in a nonstressed, ambulatory subject supports the diagnosis of Diabetes Mellitus. Microalbumin [Mass/volume] i n UrineOrdered By: Rodger Avila on 05-14-2024 Albumin DL <= 20 mg/L (U) [Mass/Vol] 13.6 mg/dL High 0.0-1.8 [facility] No Panel InformationOrdered By: Rodger Avila on 05-14-2024 C-Peptide <0.1 ng/mL Low 1.1-4.4 [facility] Comment on above: C-Peptide reference interval is for fasting patients.Performed at: [facility] [id number] Director: Wenceslao Hoyos PhD, Phone: [phone] Estimated GFR (CKD-EPI) 56.259 mL/Min [facility] Creatinine Clearance (Chem N/A [facility] Potassium [Moles/volume] in Serum or PlasmaOrdered By: Rodger Avila on 05-14-2024 Potassium [Moles/Vol] 5.1 mmol/L 3.5-5.1 [facility] Protein [Mass/volume] in Ser um or PlasmaOrdered By: Rodger Avila on 05-14-2024 Protein [Mass/Vol] 6.8 g/dL 6.4-8.9 [facility] Serum or plasma albumin/glob ulin mass ratioOrdered By: Rodger Avila on 05-14-2024 Albumin/Globulin [Mass ratio] 1.4 {ratio} [facility] Serum or plasma anion gap de terminationOrdered By: Rodger Avila on 05-14-2024 Anion gap [Moles/Vol] 9.6 mmol/L 6.0-15.0 [facility] Serum or plasma high density lipoprotein (HDL) cholesterol measurementOrdered By: Rodger Avila on 05-14-2024 Cholesterol in HDL [Mass/Vol] 59 mg/dL 23-92 [facility] Comment on above: HDL CHOL ATP-III CLA SSIFICATION Cardiovascular RiskHDL > or equal to 60 mg/dL LOWHDL < 40 mg/dL HIGH Serum or plasma total choles terol/high density lipoprotein (HDL) cholesterol mass ratOrdered By: Rodger Avila on 05-14-2024 Cholesterol.total/Choles terol in HDL [Mass ratio] 2.7 {ratio} <5.0 [facility] Sodium [Moles/volume] in Ser um or PlasmaOrdered By: Rodger Avila on 05-14-2024 Sodium [Moles/Vol] 141 mmol/L 136-145 [facility] Thyrotropin [Units/volume] i n Serum or PlasmaOrdered By: Rodger Avila on 05-14-2024 TSH Qn 1.89 m[IU]/L 0.45-5.33 [facility] Triglyceride [Mass/volume] i n Serum or PlasmaOrdered By: Biancaa Austin on 05-14-2024 Triglyceride [Mass/Vol] 110 mg/dL 0-149 F [facility] Comment on above: TRIG ATP III CLASSIF ICATIONTRIG less than 150 mg/dL NormalTRIG 150-199 mg/dL Borderline highTRIG 200-500 mg/dL High TRIG greater than 500 mg/dL Very highStandard traceable to the Center for Disease Conrtrol and Prevention (CDC) test method. Urea nitrogen [Mass/volume] in Serum or PlasmaOrdered By: Rodger Avila on 05-14-2024 Urea nitrogen [Mass/Vol] 29 mg/dL High 7-25 [facility] Urine microalbumin/creatinin e mass ratioOrdered By: Rodger Avila on 05-14-2024 Albumin/Creatinine DL <= 20 mg/L (U) [Mass ratio] 49.3 mg/g High 0.0-30.0 [facility] Comment on above: 30-300 mg/g indicate s an increased risk for diabetic nephropathy. Greater than 300 mg/g is consistent with clinical nephropathy. (Am. J. Kidney Disease 1995, 25:107) HbA1c HPLC (Bld) [Mass fract ion]on 04-30-2024 HbA1c (Bld) [Mass fraction] 6.5 % [facility] No Panel Informationon 04-30 Bedside Glucose 211 [facility] No Panel Informationon 02-08 OD Quality: RNFL: GCC: Status: prosthesis - no image OS Quality: fair RNFL: mild inferior, moderate superior GCC: difficult to interpret Status: stable MANUALLY TRANSCRIBED RESULTS [facility] COMPREHENSIVE METABOLIC PANE Bill 01-12-2024 Albumin [Mass/Vol] 3.9 g/dL Normal 3.2-5.3 [facility] Comment on above: Performed By: #### Frances PETE, [id number] #### [facility] ([id number]) [address], [address] [place] [address] ALP [Catalytic activity/Vol] 88 U/L Normal 39-130 [facility] Comment on above: Performed By: #### Frances PETE, 45483-2 #### [facility] ([id number]) [address], [address] [place] [address] ALT [Catalytic activity/Vol] 18 U/L Normal 0-31 [facility] Comment on above: Performed By: #### Frances PETE, [id number] #### [facility] ([id number]) [address], [address] [place] [address] Anion gap [Moles/Vol] 6 mmol/L Normal 5-15 [facility] Comment on above: Performed By: #### Frances PETE, 59338-7 #### [facility] ([id number]) [address], [address] [place] [address] AST [Catalytic activity/Vol] 22 U/L Normal 0-41 [facility] Comment on above: Performed By: #### Frances PETE, [id number] #### [facility] ([id number]) [address], [address] [place] [address] Bilirubin [Mass/Vol] 0.5 mg/dL Normal 0.3-1.2 [facility] Comment on above: Performed By: #### Frances PETE, 92257-2 #### [facility] ([id number]) [address] [place] [address] Calcium [Mass/Vol] 9.6 mg/dL Normal 8.5-10.5 [facility] Comment on above: Performed By: #### Frances PETE, 45554-1 #### [facility] ([id number]) [address] [place] [address] Chloride [Moles/Vol] 102 mmol/L Normal 98-109 [facility] Comment on above: Performed By: #### Frances PETE, 08273-4 #### [facility] ([id number]) [address], [address] [place] [address] CO2 [Moles/Vol] 32 mmol/L Normal 22-32 [facility] Comment on above: Performed By: #### Frances PETE, [id number] #### [facility] ([id number]) [address], [address] [place] [address] Creatinine [Mass/Vol] 1.13 mg/dL High 0.40-1.00 [facility] Comment on above: Result Comment: METH OD TRACEABLE TO IDMS STANDARD Performed By: #### Frances PETE, [id number] #### [facility] ([id number]) [address], [address] [place] [address] GFR/1.73 sq M.predicted among non-blacks MDRD (S/P/Bld) [Vol rate/Area] 57 mL/min/{1.73_m2} Low >59 [facility] Comment on above: Result Comment: Reported eGFR is based on the CKD-EPI 2020 equation that does not use a race coefficient. Performed By: #### Frances PETE, 37347-2 #### [facility] ([id number]) [address], [address] [place] [address] Glucose [Mass/Vol] 144 mg/dL High 65-99 [facility] Comment on above: Performed By: #### Frances PETE, [id number] #### [facility] ([id number]) [address] [place] [address] Potassium [Moles/Vol] 4.7 mmol/L Normal 3.5-5.0 [facility] Comment on above: Performed By: #### Frances PETE, 18211-5 #### [facility] ([id number]) [address], [address] [place] [address] Protein [Mass/Vol] 7.1 g/dL Normal 6.0-8.0 [facility] Comment on above: Performed By: #### Frances PETE, 18911-9 #### [facility] ([id number]) [address], [address] [place] [address] Sodium [Moles/Vol] 140 mmol/L Normal 134-146 [facility] Comment on above: Performed By: #### Frances PETE, 94918-7 #### [facility] ([id number]) [address], [address] [place] [address] Urea nitrogen [Mass/Vol] 20 mg/dL Normal 5-23 [facility] Comment on above: Performed By: #### C , [id number] #### [facility] ([id number]) [address], [address] [place] [address] Comprehensive metabolic pane bill 01-12-2024 Albumin [Mass/Vol] 3.9 g/dL 3.2 - 5.3 g/dL [facility] ALP [Catalytic activity/Vol] 88 U/L 39 - 130 U/L [facility] ALT No additional P-5'-P [Catalytic activity/Vol] 18 U/L 0 - 31 U/L [facility] Anion gap [Moles/Vol] 6 mmol/L 5 - 15 mmol/L [facility] AST [Catalytic activity/Vol] 22 U/L 0 - 41 U/L [facility] Bilirubin [Mass/Vol] 0.5 mg/dL 0.3 - 1 .2 mg/dL [facility] Calcium [Mass/Vol] 9.6 mg/dL 8.5 - 10. 5 mg/dL [facility] Chloride [Moles/Vol] 102 mmol/L 98 - 10 9 mmol/L [facility] CO2 [Moles/Vol] 32 mmol/L 22 - 32 mmol/L [facility] Creatinine [Mass/Vol] 1.13 mg/dL High 0.40 - 1.00 mg/dL [facility] Comment on above: METHOD TRACEABLE TO [facility] STANDARD eGFR (CKD-EPI)non-race dependent 57 Low - PINF [facility] Comment on above: Reported eGFR is based on the CKD-EPI 202 equation that does not use a race coefficient. Glucose [Mass/Vol] 144 mg/dL High 65 - 99 mg/dL [facility] Interpretation and review of laboratory results Abnormal [facility] Potassium [Moles/Vol] 4.7 mmol/L 3.5 - 5.0 mmol/L [facility] Protein [Mass/Vol] 7.1 g/dL 6.0 - 8.0 g/dL [facility] Sodium [Moles/Vol] 140 mmol/L 134 - 146 mmol/L [facility] Urea nitrogen [Mass/Vol] 20 mg/dL 5 - 23 mg/d L [facility] HGB A1C (GLYCO-HGB)on 2023 Glucose [Mass/Vol] 180 mg/dL Normal [facility] Comment on above: Performed By: #### Frances PETE, 06179-9 #### [facility] ([id number]) [address], [address] [place] [address] HbA1c (Bld) [Mass fraction] 7.9 % High 4.4-5.6 [facility] Comment on above: Result Comment: NOTE ADA Guidelines Result HgbA1c Normal : less than 5.7 % Prediabetes : 5.7 % to 6.4 % Diabetes : > 6.4 % Use with caution in patients with abnormal hemoglobin variants as the half-life of red blood cells and in vivo glycation rates are affected. Performed By: #### Frances PETE, 30500-3 #### [facility] ([id number]) [address], [address] [place] [address] Hemoglobin A1con 01-12-2024 Average glucose Estimated from glycated hemoglobin (Bld) [Mass/Vol] 180 mg/dL [facility] HbA1c (Bld) [Mass fraction] 7.9 % High 4.4 - 5.6 % [facility] Comment on above: NOTE ADA Guidelines Result HgbA1c Normal : less than 5.7 % Prediabetes : 5.7 % to 6.4 % Diabetes : > 6.4 % Use with caution in patients with abnormal hemoglobin variants as the half-life of red blood cells and in vivo glycation rates are affected. Interpretation and review of laboratory results Abnormal [facility] - Chemistry and C hemistry - challengeon 01-12-2024 Creatinine (U) [Mass/Vol] 45.94 mg/dL [facility] Cholesterol [Mass/Vol] 186 mg/dL [facility] Cholesterol in HDL [Mass/Vol] 76 mg/dL [facility] Cholesterol in LDL [Mass/Vol] 94 mg/dL [facility] Cholesterol.total/Choles terol in HDL [Mass ratio] 2.4 {ratio} [facility] Triglyceride [Mass/Vol] 80 mg/dL F [facility] Albumin [Mass/Vol] 3.9 g/dL [facility] ALP [Catalytic activity/Vol] 88 U/L [facility] ALT [Catalytic activity/Vol] 18 U/L [facility] AST [Catalytic activity/Vol] 22 U/L [facility] Bilirubin [Mass/Vol] 0.5 mg/dL [facility] Calcium [Mass/Vol] 9.6 mg/dL [facility] Chloride [Moles/Vol] 102 mmol/L [facility] CO2 [Moles/Vol] 32 mmol/L [facility] Creatinine [Mass/Vol] 1.13 mg/dL [facility] GFR/1.73 sq M.predicted MDRD (S/P/Bld) [Vol rate/Area] 57 mL/min/{1.73_m2} [facility] Glucose [Mass/Vol] 144 mg/dL [facility] Potassium [Moles/Vol] 4.7 mmol/L [facility] Protein [Mass/Vol] 7.1 g/dL [facility] Sodium [Moles/Vol] 140 mmol/L [facility] Urea nitrogen [Mass/Vol] 20 mg/dL [facility] - Hematology and Cell countson 01-12-2024 HbA1c (Bld) [Mass fraction] 7.9 % [facility] Lipid 1996 panelon 4 Cholesterol [Mass/Vol] 186 mg/dL 150 - 200 mg/dL [facility] Cholesterol in HDL [Mass/Vol] 76 mg/dL 39 - PINF mg/dL [facility] Comment on above: HDL <40 mg/dL - High Risk HDL > or = 40mg/dL- Desirable HDL >60 mg/dL - Negative Risk Cholesterol in LDL [Mass/Vol] 94 mg/dL NINF - 130 mg/dL [facility] Comment on above: LDL <100 mg/dL - Desirable LDL >160 mg/dL - High Risk Cholesterol in VLDL [Mass/Vol] 16 mg/dL 0 - 30 mg/dL [facility] Cholesterol.total/Choles terol in HDL [Mass ratio] 2.4 {ratio} 1.0 - 5.0 [facility] Triglyceride [Mass/Vol] 80 mg/dL 27 - 150 mg/dL [facility] Cholesterol [Mass/Vol] 186 mg/dL Normal 150-200 [facility] Comment on above: Performed By: #### Frances PETE, 22010-9 #### [facility] ([id number]) [address], [address] [place] [address] Cholesterol in HDL [Mass/Vol] 76 mg/dL Normal >39 [facility] Comment on above: Result Comment: HDL <40 mg/dL - High Risk HDL > or = 40mg/dL- Desirable HDL >60 mg/dL - Negative Risk Performed By: #### Frances PETE, 00996-4 #### [facility] ([id number]) [address] [place] [address] Cholesterol in LDL [Mass/Vol] 94 mg/dL Normal <130 [facility] Comment on above: Result Comment: LDL <100 mg/dL - Desirable LDL >160 mg/dL - High Risk Performed By: #### Frances PETE, 87602-3 #### [facility] ([id number]) [address] [place] [address] Cholesterol in VLDL [Mass/Vol] 16 mg/dL Normal 0-30 [facility] Comment on above: Performed By: #### Frances PETE, 87889-6 #### [facility] ([id number]) [address] [place] [address] CHOLESTEROL:HDL 2.4 Normal 1.0-5.0 [facility] Comment on above: Performed By: #### Frances PETE, 67795-2 #### [facility] ([id number]) [address], [address] [place] [address] Triglyceride [Mass/Vol] 80 mg/dL Normal 27-150 [facility] Comment on above: Performed By: #### Frances PETE, 27509-1 #### [facility] ([id number]) [address], [address] [place] [address] MICROALBUMIN - ALBUMIN:CREAT ININE URINE RATIOon 01-12-2024 ALB/CREAT RATIO 43.5 mg/g creat High 0.0-30.0 [facility] Comment on above: Performed By: #### M ALBU #### [facility] ([id number]) [address], [address] [place] [address] Albumin DL <= 20 mg/L (U) [Mass/Vol] 2.0 mg/dL High 0.0-1.9 [facility] Comment on above: Performed By: #### M ALBU #### [facility] ([id number]) [address] [place] [address] URINE CREAT 45.94 mg/dL Normal [facility] Comment on above: Performed By: #### M ALBU #### [facility] ([id number]) [address] [address] [address], [address] [place] [address] Microalbumin - Albumin: Crea tinine Urine Ratioon 01-12-2024 Albumin DL <= 20 mg/L (U) [Mass/Vol] 2.0 mg/dL High 0.0 - 1.9 mg/dL [facility] Albumin/Creatinine DL <= 1.0 mg/L (U) [Ratio] 43.5 High [facility] Creatinine (U) [Mass/Vol] 45.94 mg/dL [facility] Interpretation and review of laboratory results Abnormal [facility] No Panel Informationon 01-12 [facility] Urine Microalbumin mg/dl 2.0 [facility] Urine Microalbumin/Creatinine Ratio 43.5 [facility] VLDL Cholesterol 16 mg/dL [facility] Estimated GFR (Non- 57 mL/min [facility] Albumin [Mass/volume] in Ser um or Plasma by Bromocresol green (BCG) dye binding methoOrdered By: Buddy Jean on 09-22-2023 Albumin BCG dye [Mass/Vol] 3.9 g/dL 3.5-5.7 [facility] Automated erythrocytes count in urine sediment (number/area)Ordered By: Buddy Jean on 09-22-2023 RBC Auto (Urine sed) [#/Area] None seen [HPF] 0-4 [facility] Automated leukocytes count i n urine sediment (number/area)Ordered By: Buddy Jean on 09-22-2023 WBC Auto (Urine sed) [#/Area] None seen [HPF] 0-4 [facility] Bilirubin Auto test strip Ql (U)Ordered By: Buddy Jean on 09-22-2023 Bilirubin Ql (U) Negative Negative [facility] Calcium [Mass/volume] in Ser um or PlasmaOrdered By: Buddy Jean on 09-22-2023 Calcium [Mass/Vol] 9.3 mg/dL 8.6-10.3 [facility] Carbon dioxide, total [Moles /volume] in Serum or PlasmaOrdered By: Buddy Jean on 09-22-2023 CO2 [Moles/Vol] 26.1 mmol/L 21.0-31.0 [facility] Chloride [Moles/volume] in S violetta or PlasmaOrdered By: Buddy Jean on 09-22-2023 Chloride [Moles/Vol] 105 mmol/L 98-107 [facility] Creatinine [Mass/volume] in Serum or PlasmaOrdered By: Buddy Jean on 09-22-2023 Creatinine [Mass/Vol] 1.39 mg/dL 0.60-1.20 [facility] Creatinine [Mass/volume] in UrineOrdered By: Buddy Jean on 09-22-2023 Creatinine (U) [Mass/Vol] 120.0 mg/dL 11.0-20.0 [facility] Erythrocyte distribution wid th Auto (RBC) [Ratio]Ordered By: Buddy Jean on 09-22-2023 Erythrocyte distribution width (RBC) [Ratio] 13.5 % 11.9-15.3 [facility] Ferritin [Mass/volume] in Se rum or PlasmaOrdered By: Buddy Jean on 09-22-2023 Ferritin [Mass/Vol] 28.4 ng/mL 11.0-306.8 [facility] Folate [Mass/volume] in Seru m or PlasmaOrdered By: Buddy Jean on 09-22-2023 Folate [Mass/Vol] 30.0 ng/mL >5.9 [facility] Comment on above: Folate reference ran ge: >5.9 ng/mlThe WHO technical consultation on folate and vitamin [id number] has determined that folate concentrations lessthan 4 ng/ml are considered deficient. Glucose [Mass/volume] in Ser um or PlasmaOrdered By: Buddy Jean on 09-22-2023 Glucose [Mass/Vol] 152 mg/dL 70-100 [facility] Comment on above: ADA recommended refe rence rangeRandom Glucose Reference Range is dependent on time and content of last meal. Glucose of more than 200 mg/dL in a nonstressed, ambulatory subject supports the diagnosis of Diabetes Mellitus. Hematocrit Auto (Bld) [Volum e fraction]Ordered By: Buddy Jean on 09-22-2023 Hematocrit (Bld) [Volume fraction] 35.9 % 34.0-46.4 [facility] Hemoglobin [Mass/volume] in BloodOrdered By: Buddy Jean on 09-22-2023 Hemoglobin (Bld) [Mass/Vol] 12.0 g/dL 11.8-15.4 [facility] Iron [Mass/volume] in Serum or PlasmaOrdered By: Buddy Jean on 09-22-2023 Iron [Mass/Vol] 83 ug/dL 50-212 [facility] Iron binding capacity [Mass/ volume] in Serum or PlasmaOrdered By: Buddy Jean on 09-22-2023 Iron binding capacity [Mass/Vol] 321 ug/dL 255-450 [facility] Iron saturation [Mass Fracti on] in Serum or PlasmaOrdered By: Buddy Jean on 09-22-2023 Iron saturation [Mass fraction] 25.9 % 20-50 [facility] Ketones Auto test strip (U) [Mass/Vol]Ordered By: Buddy Jean on 09-22-2023 Ketones (U) [Mass/Vol] Negative Negative [facility] - UrinalysisOrder ed By: Buddy Jean on 09-22-2023 Hyaline casts LM Ql (Urine sed) 0-8 [LPF] 0-8 [facility] Leukocytes [#/volume] correc man for nucleated erythrocytes in Blood by Automated counOrdered By: Buddy Jean on 09-22-2023 WBC corrected for nucl RBC Auto (Bld) [#/Vol] 5.3 10*3/uL 3.8-11.6 [facility] MCH Auto (RBC) [Entitic mass ]Ordered By: Buddy Jean on 09-22-2023 MCH (RBC) [Entitic mass] 32.8 pg 24.7-34.3 [facility] MCHC Auto (RBC) [Mass/Vol]Or dered By: Buddy Jean on 09-22-2023 MCHC (RBC) [Mass/Vol] 33.4 g/dL 32.0-35.0 [facility] MCV Auto (RBC) [Entitic vol] Ordered By: Buddy Jean on 09-22-2023 MCV (RBC) [Entitic vol] 98.3 fL 80-100 F [facility] Magnesium [Mass/volume] in S violetta or PlasmaOrdered By: Buddy Jean on 09-22-2023 Magnesium [Mass/Vol] 1.9 mg/dL 1.9-2.7 [facility] No Panel InformationOrdered By: Buddy Jean on 09-22-2023 Estimated GFR (CKD-EPI) 44.814 mL/Min [facility] Creatinine Clearance (Chem N/A [facility] Parathyrin.intact [Mass/volu me] in Serum or PlasmaOrdered By: Buddy Jean on 09-22-2023 Parathyrin.intact [Mass/Vol] 59.6 pg/mL [facility] Phosphate [Mass/volume] in S violetta or PlasmaOrdered By: Buddy Jean on 09-22-2023 Phosphate [Mass/Vol] 4.0 mg/dL 3.7-7.2 [facility] Platelet mean volume Auto (B ld) [Entitic vol]Ordered By: Buddy Jean on 09-22-2023 Platelet mean volume (Bld) [Entitic vol] 9.9 fL 6.3-10.7 [facility] Platelets Auto (Bld) [#/Vol] Ordered By: Buddy Jean on 09-22-2023 Platelets (Bld) [#/Vol] 253 10*3/uL 150-450 [facility] Potassium [Moles/volume] in Serum or PlasmaOrdered By: Buddy Jean on 09-22-2023 Potassium [Moles/Vol] 4.6 mmol/L 3.5-5.1 [facility] [facility] Protein Auto test strip (U) [Mass/Vol]Ordered By: Buddy Jena on 09-22-2023 Protein (U) [Mass/Vol] Negative Negative [facility] Protein [Mass/volume] in Uri neOrdered By: Buddy Miranda on 09-22-2023 Protein (U) [Mass/Vol] 9 mg/dL 0-[address] [facility] RBC Auto (Bld) [#/Vol]Ordere d By: Buddy Jean on 09-22-2023 RBC (Bld) [#/Vol] 3.65 10*6/uL 3.60-5.00 [facility] Serum or plasma anion gap de terminationOrdered By: Buddy Jean on 09-22-2023 Anion gap [Moles/Vol] 13.5 mmol/L 6.0-15.[address] [facility] Sodium [Moles/volume] in Ser um or PlasmaOrdered By: Buddy Jean on 09-22-2023 Sodium [Moles/Vol] 140 mmol/L 136-145 [facility] Squamous epithelial cells de tection in urine sediment by light microscopyOrdered By: Buddy Jean on 09-22-2023 Epithelial cells.squamous LM Ql (Urine sed) 3-4 [HPF] 0-2 [facility] Transferrin [Mass/volume] in Serum or PlasmaOrdered By: Buddy Jean on 09-22-2023 Transferrin [Mass/Vol] 229 mg/dL 203-362 [facility] Urate [Mass/volume] in Serum or PlasmaOrdered By: Buddy Jean on 09-22-2023 Urate [Mass/Vol] 6.8 mg/dL 2.3-6.6 [facility] Urea nitrogen [Mass/volume] in Serum or PlasmaOrdered By: Buddy Jean on 09-22-2023 Urea nitrogen [Mass/Vol] 34 mg/dL 7-25 [facility] Urine appearanceOrdered By: Buddy Jean on 09-22-2023 Appearance (U) Clear Clear [facility] Urine bacteria detection by automated methodOrdered By: Buddy Jean on 09-22-2023 Bacteria Auto Ql (U) None seen None Seen [facility] Urine colorOrdered By: Buddy Jean on 09-22-2023 Color (U) Yellow Yellow [facility] Urine glucose measurement by automated test strip (mass/volume)Ordered By: Buddy Jean on 09-22-2023 Glucose Auto test strip (U) [Mass/Vol] Normal mg/dL Normal [facility] Urine hemoglobin detection b y automated test stripOrdered By: Buddy Jean on 09-22-2023 Hemoglobin Auto test strip Ql (U) Negative Negative [facility] Urine leukocyte esterase det ection by automated test stripOrdered By: Buddy Jean on 09-22-2023 Leukocyte esterase Auto test strip Ql (U) Negative Negative [facility] Urine nitrite detection by a utomated test stripOrdered By: Buddy Jean on 09-22-2023 Nitrite Auto test strip Ql (U) Negative Negative [facility] Urine protein/creatinine rat ioOrdered By: Buddy Jean on 09-22-2023 Protein/Creatinine (U) [Ratio] 75 mg/g{Cre} 0-200 [facility] Urobilinogen Auto test strip (U) [Mass/Vol]Ordered By: Buddy Jean on 09-22-2023 Urobilinogen (U) [Mass/Vol] Normal mg/dL Normal [facility] Vitamin B12 ser/plasOrdered By: Buddy Jean on 09-22-2023 Cobalamin (Vitamin B12) [Mass/Vol] 799 pg/mL 180-914 [facility] Vitamin D+Metabolites [Mass/ volume] in Serum or PlasmaOrdered By: Buddy Jean on 09-22-2023 Vitamin D+Metabolites [Mass/Vol] 46.3 ng/mL 30-100 [facility] Comment on above: VITAMIN D STATUS 25( [place])VITAMIN D RANGE (ng/mL) Deficient <20 Insufficient 20 to <30Sufficient 30 to 100Reference: Lilly MF,Obed ROMANO, Jaimie BAKER, et al. Evaluation,treatment, and prevention of vitamin D deficiency; an Endocrine Society clinical practice guideline. JCEM. 2010; 96(7):1911-30. pH Auto test strip (U)Ordere d By: Buddy Jean on 09-22-2023 pH (U) 1.020 [pH] 1.001-1.030 [facility] pH (U) 5.5 [pH] 5.0-9.0 [facility] XR LSPINE 2_3 VIEWSon 2022 XR [...] by: JOSS SOARES Date: 2023-03-17 10:17 Normal [facility] Albumin [Mass/volume] in Ser um or PlasmaOrdered By: Buddy Jean on 09-20-2022 Albumin [Mass/Vol] 3.1 g/dL 3.2-5.5 [facility] Automated erythrocytes count in urine sediment (number/area)Ordered By: Buddy Jean on 09-20-2022 RBC Auto (Urine sed) [#/Area] 0-1 [HPF] 0-4 [facility] Automated leukocytes count i n urine sediment (number/area)Ordered By: Buddy Jean on 09-20-2022 WBC Auto (Urine sed) [#/Area] 1-2 [HPF] 0-4 [facility] Automated urine hyaline cast s count (number/volume)Ordered By: Buddy Jean on 09-20-2022 Hyaline casts Auto (U) [#/Vol] None seen [LPF] 0-1 [facility] Bilirubin Test strip Ql (U)O rdered By: Buddy Jean on 09-20-2022 Bilirubin Ql (U) Negative Negative [facility] Casts typing in urine sedime nt by light microscopyOrdered By: Buddy Jean on 09-20-2022 Casts LM Nom (Urine sed) None seen [LPF] None S een [facility] Color Auto (U)Ordered By: Ab bijal Jean on 09-20-2022 Color (U) Yellow Yellow [facility] Creatinine [Mass/volume] in UrineOrdered By: Buddy Jean on 09-20-2022 Creatinine (U) [Mass/Vol] 177.6 mg/dL [facility] Comment on above: No reference range e stablished Creatinine and Glomerular fi ltration rate.predicted panel (S/P/Bld)Ordered By: Buddy Jean on 09-20-2022 Creatinine [Mass/Vol] 1.09 mg/dL 0.44-1.03 [facility] Erythrocyte distribution wid th Auto (RBC) [Ratio]Ordered By: Buddy Jean on 09-20-2022 Erythrocyte distribution width (RBC) [Ratio] 14.1 % 11.9-15.3 [facility] Estimated glomerular filtrat ion rate (GFR) non- AmericanOrdered By: Buddy Jean on 09-20-2022 GFR/1.73 sq M.predicted among non-blacks MDRD (S/P/Bld) [Vol rate/Area] 52 mL/Min [facility] Hematocrit Auto (Bld) [Volum e fraction]Ordered By: Buddy Jean on 09-20-2022 Hematocrit (Bld) [Volume fraction] 35.0 % 34.0-46.4 [facility] Hemoglobin [Mass/volume] in BloodOrdered By: Buddy Jean on 09-20-2022 Hemoglobin (Bld) [Mass/Vol] 11.6 g/dL 11.8-15.4 [facility] Ketones Auto test strip (U) [Mass/Vol]Ordered By: Buddy Jean on 09-20-2022 Ketones (U) [Mass/Vol] Negative Negative [facility] Laboratory - Chemistry and C hemistry - challengeOrdered By: Buddy Jean on 09-20-2022 Magnesium [Mass/Vol] 2.0 mg/dL 1.6-2.6 [facility] MCH Auto (RBC) [Entitic mass ]Ordered By: Buddy Jean on 09-20-2022 MCH (RBC) [Entitic mass] 32.6 pg 24.7-34.3 [facility] MCHC Auto (RBC) [Mass/Vol]Or dered By: Buddy Jean on 09-20-2022 MCHC (RBC) [Mass/Vol] 33.0 g/dL 32.0-35.0 [facility] MCV Auto (RBC) [Entitic vol] Ordered By: Buddy Jean on 09-20-2022 MCV (RBC) [Entitic vol] 99.0 fL 80-100 F [facility] Nitrite Test strip Ql (U)Ord ered By: Buddy Jean on 09-20-2022 Nitrite Ql (U) Negative Negative [facility] No Panel InformationOrdered By: uBddy Jean on 09-20-2022 25-Hydroxy Vitamin D Total 37.6 ng/mL 30-100 [facility] Comment on above: VITAMIN D STATUS 25( [place])VITAMIN D RANGE (ng/mL) Deficient <20 Insufficient 20 to <30Sufficient 30 to 100Reference: Lilly MF,Obed NC, Jaimie BAKER, et al. Evaluation,treatment, and prevention of vitamin D deficiency; an Endocrine Society clinical practice guideline. JCEM. 2010; 96(7):1911-30. Estimated GFR () > 60 mL/Min [facility] Comment on above: GFR estimated refere nce range: According to KDOQI guidelines, <60 ml/min/1.73m2 is sufficient to diagnose a patient with chronic kidney disease. Pharmacy Creatinine Clearance (Chem N/A [facility] Phosphate [Mass/volume] in S violetta or PlasmaOrdered By: Buddy Jean on 09-20-2022 Phosphate [Mass/Vol] 4.3 mg/dL 2.5-4.6 [facility] Platelet mean volume Auto (B ld) [Entitic vol]Ordered By: Buddy Jean on 09-20-2022 Platelet mean volume (Bld) [Entitic vol] 10.2 fL 6.3-10.7 [facility] Platelets Auto (Bld) [#/Vol] Ordered By: Buddy Jean on 09-20-2022 Platelets (Bld) [#/Vol] 259 10*3/uL 150-450 [facility] Protein Auto test strip (U) [Mass/Vol]Ordered By: Buddy Jean on 09-20-2022 Protein (U) [Mass/Vol] Negative Negative [facility] Protein [Mass/volume] in Uri neOrdered By: Buddy Jean on 09-20-2022 Protein (U) [Mass/Vol] 12 mg/dL 0-[address] [facility] RBC Auto (Bld) [#/Vol]Ordere d By: Buddy Jean on 09-20-2022 RBC (Bld) [#/Vol] 3.54 10*6/uL 3.60-5.00 [facility] Serum or plasma anion gap de terminationOrdered By: Buddy Jean on 09-20-2022 Anion gap [Moles/Vol] 13.3 mmol/L 6.0-15.0 [facility] Serum or plasma calcium maggie urement (mass/volume)Ordered By: Buddy Jean on 09-20-2022 Calcium [Mass/Vol] 9.2 mg/dL 8.2-10.2 [facility] Serum or plasma chloride britton surement (moles/volume)Ordered By: Buddy Jean on 09-20-2022 Chloride [Moles/Vol] 102 mmol/L 95-114 [facility] Serum or plasma glucose maggie urement (mass/volume)Ordered By: Buddy Jean on 09-20-2022 Glucose [Mass/Vol] 220 mg/dL 70-100 [facility] Comment on above: ADA recommended refe rence rangeRandom Glucose Reference Range is dependent on time and content of last meal. Glucose of more than 200 mg/dL in a nonstressed, ambulatory subject supports the diagnosis of Diabetes Mellitus. Serum or plasma intact parat hyroid hormone measurement (mass/volume)Ordered By: Buddy Jean on 09-20-2022 Parathyrin.intact [Mass/Vol] 66.5 pg/mL 12-88 [facility] Serum or plasma potassium me asurement (moles/volume)Ordered By: Buddy Jean on 09-20-2022 Potassium [Moles/Vol] 5.1 mmol/L 3.5-5.1 [facility] Serum or plasma sodium measu rement (moles/volume)Ordered By: Buddy Jean on 09-20-2022 Sodium [Moles/Vol] 135 mmol/L 136-146 [facility] Serum or plasma total carbon dioxide measurement (moles/volume)Ordered By: Buddy Jean on 09-20-2022 CO2 [Moles/Vol] 24.8 mmol/L 22.0-30.0 [facility] Serum or plasma urea nitroge n measurement (mass/volume)Ordered By: Buddy Jean on 09-20-2022 Urea nitrogen [Mass/Vol] 24 mg/dL 9-23 [facility] Serum or plasma uric acid me asurement (mass/volume)Ordered By: Buddy Jean on 09-20-2022 Urate [Mass/Vol] 5.7 mg/dL 2.6-7.2 [facility] Specific gravity Auto test s trip (U) [Rel density]Ordered By: Buddy Jean on 09-20-2022 Specific gravity (U) [Rel density] 1.021 1.001-1.030 [facility] Squamous epithelial cells de tection in urine sediment by light microscopyOrdered By: Buddy Jean on 09-20-2022 Epithelial cells.squamous LM Ql (Urine sed) 5-9 [HPF] 0-2 [facility] Urine bacteria detection by automated methodOrdered By: Buddy Jean on 09-20-2022 Bacteria Auto Ql (U) None seen None Seen [facility] Urine clarity by refractomet ry automatedOrdered By: Buddy Jaen on 09-20-2022 Clarity Refractometry automated (U) Clear Clear [facility] Urine glucose measurement by automated test strip (mass/volume)Ordered By: Buddy Jean on 09-20-2022 Glucose Auto test strip (U) [Mass/Vol] Normal mg/dL Normal [facility] Urine hemoglobin detection b y automated test stripOrdered By: Buddy Jean on 09-20-2022 Hemoglobin Auto test strip Ql (U) Negative Negative [facility] Urine leukocyte esterase det ection by automated test stripOrdered By: Buddy eJan on 09-20-2022 Leukocyte esterase Auto test strip Ql (U) Negative Negative [facility] Urine protein/creatinine rat ioOrdered By: Buddy Jean on 09-20-2022 Protein/Creatinine (U) [Ratio] 68 mg/g{Cre} 0-200 [facility] Urobilinogen Auto test strip (U) [Mass/Vol]Ordered By: Buddy Jean on 09-20-2022 Urobilinogen (U) [Mass/Vol] Normal mg/dL Normal [facility] WBC Auto (Bld) [#/Vol]Ordere d By: Buddy Jean on 09-20-2022 WBC (Bld) [#/Vol] 5.4 10*3/uL 3.8-11.6 [facility] pH Auto test strip (U)Ordere d By: Buddy Jean on 09-20-2022 pH (U) 5.5 [pH] 5.0-9.0 [facility] Basophils Auto (Bld) [#/Vol] Ordered By: Sherrill Carlin on 07-12-2022 Basophils (Bld) [#/Vol] 0.1 10*3/uL 0.0-0.2 [facility] Basophils/100 WBC Auto (Bld) Ordered By: Sherrill Carlin on 07-12-2022 Basophils/100 WBC (Bld) 1.2 % . F [facility] Blood hemoglobin measurement (mass/volume)Ordered By: Sherrill Carlin on 07-12-2022 Hemoglobin (Bld) [Mass/Vol] 12.1 g/dL 11.8-15.4 [facility] Blood leukocytes automated c ount (number/volume)Ordered By: Sherrill Carlin on 07-12-2022 WBC (Bld) [#/Vol] 5.2 10*3/uL 4.5-11.0 [facility] Body fluid albumin measureme nt (mass/volume)Ordered By: Sherrill Carlin on 07-12-2022 Albumin (Body fld) [Mass/Vol] 3.3 g/dL 3.2-5.5 [facility] Cholesterol [Mass/volume] in Serum or PlasmaOrdered By: Sherrill Carlin on 07-12-2022 Cholesterol [Mass/Vol] 166 mg/dL 140-200 [facility] Comment on above: Chol less than 200 m g/dl low risk Chol 201-239 mg/dl borderline risk Chol 240 mg/dl and greater high risk Chol less than 200 m g/dl low riskChol 201-239 mg/dl borderline riskChol 240 mg/dl and greater high risk Cholesterol in LDL Calc [Mas s/Vol]Ordered By: Sherrill Carlin on 07-12-2022 Cholesterol in LDL [Mass/Vol] 81 mg/dL 0-100 [facility] Comment on above: LDL ATP III [...] 07-12-2022 Cholesterol in VLDL [Mass/Vol] 13 mg/dL [facility] Creatinine [Mass/volume] in UrineOrdered By: Sherrill Carlin on 07-12-2022 Creatinine (U) [Mass/Vol] 262.2 mg/dL [facility] Comment on above: No reference range e stablished Creatinine and Glomerular fi ltration rate.predicted panel (S/P/Bld)Ordered By: Sherrill Carlin on 07-12-2022 Creatinine [Mass/Vol] 1.40 mg/dL 0.44-1.03 [facility] Eosinophils Auto (Bld) [#/Vo l]Ordered By: Sherrill Carlin on 07-12-2022 Eosinophils (Bld) [#/Vol] 0.5 10*3/uL 0.0-0.45 [facility] Eosinophils/100 WBC Auto (Bl d)Ordered By: Sherrill Carlin on 07-12-2022 Eosinophils/100 WBC (Bld) 9.6 % . [facility] Erythrocyte distribution wid th Auto (RBC) [Ratio]Ordered By: Sherrill Carlin on 07-12-2022 Erythrocyte distribution width (RBC) [Ratio] 13.7 % 11.9-15.3 [facility] Estimated glomerular filtrat ion rate (GFR) non- AmericanOrdered By: Sherrill Carlin on 07-12-2022 GFR/1.73 sq M.predicted among non-blacks MDRD (S/P/Bld) [Vol rate/Area] 39 mL/Min [facility] Globulin Calc (S) [Mass/Vol] Ordered By: Sherrill Carlin on 07-12-2022 Globulin (S) [Mass/Vol] 3.3 g/dL F [facility] Glucose mean value [Mass/vol ume] in Blood Estimated from glycated hemoglobinOrdered By: Sherrill Carlin on 07-12-2022 Average glucose Estimated from glycated hemoglobin (Bld) [Mass/Vol] 171 mg/dL [facility] Hematocrit Auto (Bld) [Volum e fraction]Ordered By: Sherrill Carlin on 07-12-2022 Hematocrit (Bld) [Volume fraction] 36.3 % 34.0-46.4 [facility] Hemoglobin A1c percentageOrd ered By: Sherrill Carlin on 07-12-2022 HbA1c (Bld) [Mass fraction] 7.6 % 4.3-5.6 [facility] Comment on above: Increased risk for d iabetes: 5.7 - 6.4 diabetes: >6.4 glycemic control for adults with diabetes: <7.0 Increased risk for d iabetes: 5.7 - 6.4diabetes: >6.4glycemic control for adults with diabetes: <7.0 Laboratory - Hematology and Cell countsOrdered By: Sherrill Carlin on 07-12-2022 Nucleated RBC/100 WBC (Bld) [Ratio] 0.1 % 0-0.5 [facility] Lymphocytes Auto (Bld) [#/Vo l]Ordered By: Sherrill Carlin on 07-12-2022 Lymphocytes (Bld) [#/Vol] 1.0 10*3/uL 1.00-4.8 [facility] Lymphocytes/100 WBC Auto (Bl d)Ordered By: Sherrill Carlin on 07-12-2022 Lymphocytes/100 WBC (Bld) 18.5 % . [facility] MCH Auto (RBC) [Entitic mass ]Ordered By: Sherrill Carlin on 07-12-2022 MCH (RBC) [Entitic mass] 33.2 pg 24.7-34.3 [facility] MCHC Auto (RBC) [Mass/Vol]Or dered By: Sherrill Carlin on 07-12-2022 MCHC (RBC) [Mass/Vol] 33.2 g/dL 32.0-35.0 [facility] MCV Auto (RBC) [Entitic vol] Ordered By: Sherrill Carlin on 07-12-2022 MCV (RBC) [Entitic vol] 100.0 fL 80-100 F [facility] Monocytes Auto (Bld) [#/Vol] Ordered By: Sherrill Carlin on 07-12-2022 Monocytes (Bld) [#/Vol] 0.6 10*3/uL 0.0-0.8 [facility] Monocytes/100 WBC Auto (Bld) Ordered By: Sherrill Carlin on 07-12-2022 Monocytes/100 WBC (Bld) 10.6 % . F [facility] Neutrophils Auto (Bld) [#/Vo l]Ordered By: Sherrill Carlin on 07-12-2022 Neutrophils (Bld) [#/Vol] 3.1 10*3/uL 1.8-7.7 [facility] Neutrophils/100 WBC Auto (Bl d)Ordered By: Sherrill Carlin on 07-12-2022 Neutrophils/100 WBC (Bld) 60.1 % . [facility] No Panel InformationOrdered By: Sherrill Carlin on 07-12-2022 Estimated GFR () 48 mL/Min [facility] Comment on above: GFR estimated refere nce range: According to KDOQI guidelines, <60 ml/min/1.73m2 is sufficient to diagnose a patient with chronic kidney disease. Pharmacy Creatinine Clearance (Chem N/A [facility] Phosphate [Mass/volume] in S violetta or PlasmaOrdered By: Sherrill Carlin on 07-12-2022 Phosphate [Mass/Vol] 4.2 mg/dL 2.5-4.6 [facility] Platelet mean volume Auto (B ld) [Entitic vol]Ordered By: Sherrill Carlin on 07-12-2022 Platelet mean volume (Bld) [Entitic vol] 10.3 fL 6.3-10.7 [facility] Platelets Auto (Bld) [#/Vol] Ordered By: Sherrill Carlin on 07-12-2022 Platelets (Bld) [#/Vol] 285 10*3/uL 150-450 [facility] Protein [Mass/volume] in Ser um or PlasmaOrdered By: Sherrill Carlin on 07-12-2022 Protein [Mass/Vol] 6.6 g/dL 6.1-7.9 [facility] RBC Auto (Bld) [#/Vol]Ordere d By: Sherrill Carlin on 07-12-2022 RBC (Bld) [#/Vol] 3.63 10*6/uL 3.60-5.00 [facility] Serum or plasma alanine waldron otransferase measurement without P-5'-P (enzymatic activiOrdered By: Sherrill Carlin on 07-12-2022 ALT No additional P-5'-P [Catalytic activity/Vol] 14 U/L 10-60 [facility] Serum or plasma albumin/glob ulin mass ratioOrdered By: Sherrill Carlin on 07-12-2022 Albumin/Globulin [Mass ratio] 1.0 {ratio} [facility] Serum or plasma alkaline kerry sphatase measurement (enzymatic activity/volume)Ordered By: Sherrill Carlin on 07-12-2022 ALP [Catalytic activity/Vol] 67 U/L 32-92 [facility] Serum or plasma aspartate am inotransferase measurement (enzymatic activity/volume)Ordered By: Sherrill Carlin on 07-12-2022 AST [Catalytic activity/Vol] 22 U/L 10-42 [facility] Serum or plasma calcium maggie urement (mass/volume)Ordered By: Sherrill Carlin on 07-12-2022 Calcium [Mass/Vol] 9.0 mg/dL 8.2-10.2 [facility] Serum or plasma chloride britton surement (moles/volume)Ordered By: Sherrill Carlin on 07-12-2022 Chloride [Moles/Vol] 99 mmol/L 95-114 [facility] Serum or plasma glucose maggie urement (mass/volume)Ordered By: Sherrill Carlin on 07-12-2022 Glucose [Mass/Vol] 199 mg/dL 70-100 [facility] Comment on above: ADA recommended refe [...] Cholesterol in HDL [Mass/Vol] 72 mg/dL 35-85 [facility] Comment on above: HDL CHOL ATP-III CLA SSIFICATION Cardiovascular Risk HDL > or equal to 60 mg/dL LOW HDL < 40 mg/dL HIGH HDL CHOL ATP-III CLA SSIFICATION Cardiovascular RiskHDL > or equal to 60 mg/dL LOWHDL < 40 mg/dL HIGH Serum or plasma intact parat hyroid hormone measurement (mass/volume)Ordered By: Sherrill Carlin on 07-12-2022 Parathyrin.intact [Mass/Vol] 82.4 pg/mL [facility] Serum or plasma potassium me asurement (moles/volume)Ordered By: Sherrill Carlin on 07-12-2022 Potassium [Moles/Vol] 5.4 mmol/L 3.5-5.1 [facility] Serum or plasma sodium measu rement (moles/volume)Ordered By: Sherrill Carlin on 07-12-2022 Sodium [Moles/Vol] 137 mmol/L 136-146 [facility] Serum or plasma total biliru bin measurement (mass/volume)Ordered By: Sherrill Carlin on 07-12-2022 Bilirubin [Mass/Vol] 0.4 mg/dL 0.3-1.2 [facility] Serum or plasma total carbon dioxide measurement (moles/volume)Ordered By: Sherrill Carlin on 07-12-2022 CO2 [Moles/Vol] 24.6 mmol/L 22.0-30.0 [facility] Serum or plasma total choles terol/high density lipoprotein (HDL) cholesterol mass ratOrdered By: Sherrill Carlin on 07-12-2022 Cholesterol.total/Choles terol in HDL [Mass ratio] 2.3 {ratio} <5.0 [facility] Serum or plasma urea nitroge n measurement (mass/volume)Ordered By: Sherrill Carlin on 07-12-2022 Urea nitrogen [Mass/Vol] 24 mg/dL 9- [facility] Triglyceride [Mass/volume] i n Serum or PlasmaOrdered By: Sherrill Carlin on 07-12-2022 Triglyceride [Mass/Vol] 66 mg/dL 35-149 F [facility] Comment on above: TRIG ATP III [...] 20 mg/L (U) [Mass/Vol] 2.3 mg/dL 0.0-1.8 [facility] Urine microalbumin/creatinin e mass ratioOrdered By: Sherrill Carlin on 07-12-2022 Albumin/Creatinine DL <= 20 mg/L (U) [Mass ratio] 8.0 mg/g 0.0-30.0 [facility] Comment on above: 30-300 mg/g indicate s an increased risk for diabetic nephropathy. Greater than 300 mg/g is consistent with clinical nephropathy. (Am. J. Kidney Disease 1994, 25:107) CULTURE, URINE, ROUTINEon CULTURE, URINE, ROUTINE SEE NOTE Normal [facility] Comment on above: Result Comment: CULTURE, URINE, ROUTINE Micro Number: [id number] Test Status: Final Specimen Source: Urine Specimen Quality: Adequate Result: No Growth Performed By: #### 3 [id number] #### [facility] [address], [address] [place] [address] Manager Linux: Edmundo Dacosta MD ALBUMIN, RANDOM URINE W/CREA TININEon 05-13-2021 ALBUMIN, URINE 0.3 mg/dL Normal See Note: [facility] Comment on above: Result Comment: Refe rence Range: Reference Range Not established Performed By: #### 5 [id number], [id number], 7600, 6517 #### [facility] [place] [address] Manager Linux: Edmundo Dacosta MD ALBUMIN/CREATININE RATIO, RANDOM URINE [...] diagnostic category. Performed By: #### 5 [id number], [id number], 7600, 6517 #### [facility] [place] [address] Manager Linux: Edmundo Dacosta MD Creatinine (U) [Mass/Vol] 24 mg/dL Normal 20-275 [facility] Comment on above: Performed By: #### 5 [id number], 66711, 7600, 6517 #### [facility] [place] [address] Manager Linux: Edmundo Dacosta MD [facility] 05-13-2021 Albumin [Mass/Vol] 3.8 g/dL Normal 3.6-5.1 [facility] Comment on above: Performed By: #### 5 [id number], 35933, 7600, 6517 #### [facility] of [place] [address] Manager Linux: Edmundo Dacosta MD Albumin/Globulin [Mass ratio] 1.3 {ratio} Normal 1.0-2.5 [facility] Comment on above: Performed By: #### 5 [id number], 79060, 7600, 6517 #### [facility] of [place] [address] Manager Linux: Edmundo Dacosta MD ALP [Catalytic activity/Vol] 77 U/L Normal 37-153 [facility] Comment on above: Performed By: #### 5 [id number], 13467, 7600, 6517 #### [facility] of [address], [address] [place] [address] Manager Linux: Edmundo Dacosta MD ALT [Catalytic activity/Vol] 12 U/L Normal 6-29 [facility] Comment on above: Performed By: #### 5 [id number], 29029, 7600, 6517 #### [facility] of [address], [address] [place] [address] Manager Linux: Edmundo Dacosta MD AST [Catalytic activity/Vol] 20 U/L Normal 10-35 [facility] Comment on above: Performed By: #### 5 [id number], [id number], 7600, 6517 #### [facility] of [address], [address] [place] [address] Manager Linux: Edmundo Dacosta MD Bilirubin [Mass/Vol] 0.6 mg/dL Normal 0.2-1.2 [facility] Comment on above: Performed By: #### 5 [id number], 12606, 7600, 6517 #### [facility] of [address], [address] [place] [address] Manager Linux: Edmundo Dacosta MD BUN/CREATININE RATIO NOT APPLICABLE Normal 6-22 [facility] Comment on above: Performed By: #### 5 [id number], 27898, 7600, 6517 #### [facility] of [address], [address] [place] [address] Manager Linux: Edmundo Dacosta MD Calcium [Mass/Vol] 9.3 mg/dL Normal 8.6-10.4 [facility] Comment on above: Performed By: #### 5 [id number], 44446, 7600, 6517 #### [facility] of [address], [address] [place] [address] Manager Linux: Edmundo Dacosta MD Chloride [Moles/Vol] 103 mmol/L Normal 98-110 [facility] Comment on above: Performed By: #### 5 [id number], 58553, 7600, [id number] #### [facility] of [address], [address] [place] [address] Manager Linux: Edmundo Dacosta MD CO2 [Moles/Vol] 27 mmol/L Normal 20-32 [facility] Comment on above: Performed By: #### 5 [id number], , 0, 6517 #### [facility] of [address], [address] [place] [address] Manager Linux: Edmundo Dacosta MD Creatinine [Mass/Vol] 1.03 mg/dL Normal 0.50-1.[address] [facility] Comment on above: Result Comment: For patients >49 years of age, the reference limit for Creatinine is approximately 13% higher for people identified as -[place]. Performed By: #### 5 [id number], , 7599, 6517 #### [facility] of [address], [address] [place] [address] Manager Linux: Edmundo Dacosta MD eGFR NON-AFR. CHINESE 62 mL/min/1.73m2 Normal > OR = 60 [facility] Comment on above: Performed By: #### 5 8984, , 7599, 6517 #### [facility] of [place] [address] Manager Linux: Edmundo Dacosta MD GFR/1.73 sq M.predicted among blacks MDRD (S/P/Bld) [Vol rate/Area] 72 mL/min/{1.73_m2} Normal > OR = 60 [facility] Comment on above: Performed By: #### 5 [id number], , 7599, 6517 #### [facility] of [address], [address] [place] [address] Manager Linux: Edmundo Dacosta MD Globulin (S) [Mass/Vol] 2.9 g/dL Normal 1.9-3.7 [facility] Comment on above: Performed By: #### 5 8984, , 7599, 6517 #### [facility] of [place] [address] Manager Linux: Edmundo Dacosta MD Glucose [Mass/Vol] 103 mg/dL High 65-99 [facility] Comment on above: Result Comment: Fasting reference interval For someone without known diabetes, a glucose value between 100 and 125 mg/dL is consistent with prediabetes and should be confirmed with a follow-up test. Performed By: #### 5 [id number], [id number], 7600, 6517 #### [facility] [address], [address] [place] [address] Manager Linux: Edmundo Dacosta MD Potassium [Moles/Vol] 5.0 mmol/L Normal 3.5-5.[address] [facility] Comment on above: Performed By: #### 5 89, [id number], 7600, 6517 #### [facility] [place] [address] Manager Linux: Edmundo Dacosta MD Protein [Mass/Vol] 6.7 g/dL Normal 6.1-8.1 [facility] Comment on above: Performed By: #### 5 89, , 0, 6517 #### [facility] of [address], [address] [place] [address] Manager Linux: Edmundo Dacosta MD Sodium [Moles/Vol] 137 mmol/L Normal 135-146 [facility] Comment on above: Performed By: #### 5 89, 58650, 7600, 6517 #### [facility] [place] [address] Manager Linux: Edmundo Dacosta MD Urea nitrogen [Mass/Vol] 23 mg/dL Normal 7-25 [facility] Comment on above: Performed By: #### 5 89, 52516, 7600, 6517 #### [facility] of [place] [address] Manager Linux: Edmundo Dacosta MD LIPID PANEL, [facility] - Cholesterol [Mass/Vol] 178 mg/dL Normal <200 [facility] Comment on above: Performed By: #### 5 [id number], 50017, 7600, 6517 #### [facility] of [address] [place] [address] Manager Linux: Edmundo Dacosta MD Cholesterol in HDL [Mass/Vol] 71 mg/dL Normal > OR = 50 [facility] Comment on above: Performed By: #### 5 8984, 07638, 7600, 6517 #### [facility] [address], [address] [place] [address] Manager Linux: Edmundo Dacosta MD Cholesterol in LDL [Mass/Vol] [...] LDL-C. Ronald BHAKTA et al. ANTHONY. 2013;310(19): 0252-9924 (http://education.[employer]oni[employer]/faq/TMW243) Performed By: #### 5 8984, 42171, 7600, 6517 #### [facility] [address], [address] [place] [address] Manager Linux: Edmundo Dacosta MD Cholesterol.total/Choles terol in HDL [Mass ratio] 2.5 {ratio} Normal <5.0 [facility] Comment on above: Performed By: #### 5 8984, 35084, 7600, 6517 #### [facility] [address], [address] [place] [address] Manager Linux: Edmundo Dacosta MD NON HDL CHOLESTEROL 107 mg/dL (calc) Normal <130 [facility] Comment on above: Result Comment: For patients with diabetes plus 1 major ASCVD risk factor, treating to a non-HDL-C goal of <100 mg/dL (LDL-C of <70 mg/dL) is considered a therapeutic option. Performed By: #### 5 8984, 63625, 7600, 6517 #### [facility] [address], [address] [place] [address] Manager Linux: Edmundo Dacosta MD Triglyceride [Mass/Vol] 51 mg/dL Normal <150 [facility] Comment on above: Performed By: #### 5 8984, 70004, 7600, 6517 #### [facility] [address], [address] [place] [address] Manager Linux: Edmundo Dacosta MD TSH+FREE T4on 05-13-2021 Free T4 [Mass/Vol] 0.9 ng/dL Normal 0.8-1.8 [facility] Comment on above: Performed By: #### 5 8984, 29370, 7600, 6517 #### [facility] [address], [address] [place] [address] Manager Linux: Edmundo Dacosta MD TSH Qn 1.64 m[IU]/L Normal [facility] Comment on above: Result Comment: Refe rence Range > or = 20 Years 0.40-4.50 Ranges First trimester 0.26-2.66 Second trimester 0.55-2.73 Third trimester 0.43-2.91 Performed By: #### 5 8984, 82289, 7600, 6517 #### [facility] [address], [address] [place] [address] Manager Linux: Edmundo Dacosta MD Estimated glomerular filtrat ion rate (GFR) non- Americanon 01-01-2021 GFR/1.73 sq M predicted among non-blacks MDRD (S/P/Bld) [Vol rate/Area] 54 mL/min/{1.73_m2} [facility] Otheron 01-01-2021 GFR/1.73 sq M.predicted MDRD (S/P/Bld) [Vol rate/Area] mL/min/{1.73_m2} [facility] Comment on above: GFR estimated refere nce range: According to KDOQI guidelines, <60 ml/min/1.73m2 is sufficient to diagnose a patient with chronic kidney disease. Pharmacy Creatinine Clearance (Chem N/A [facility] Serum or plasma calcium maggie urement (mass/volume)on 01-01-2021 Calcium [Mass/Vol] 9.1 mg/dL 8.2-10.2 [facility] Serum or plasma chloride britton surement (moles/volume)on 01-01-2021 Chloride [Moles/Vol] 104 mmol/L 95-114 [facility] Serum or plasma creatinine m easurement with calculation of estimated glomerular filtron 01-01-2021 Creatinine [Mass/Vol] 1.07 mg/dL 0.44-1.03 [facility] Serum or plasma glucose maggie urement (mass/volume)on 01-01-2021 Glucose [Mass/Vol] 78 mg/dL 70-100 [facility] Comment on above: ADA recommended refe rence rangeRandom Glucose Reference Range is dependent on time and content of last meal. Glucose of more than 200 mg/dL in a nonstressed, ambulatory subject supports the diagnosis of Diabetes Mellitus. Serum or plasma potassium me asurement (moles/volume)on 01-01-2021 Potassium [Moles/Vol] 4.4 mmol/L 3.5-5.1 [facility] Serum or plasma sodium measu rement (moles/volume)on 01-01-2021 Sodium [Moles/Vol] 138 mmol/L 136-146 [facility] Serum or plasma total carbon dioxide measurement (moles/volume)on 01-01-2021 CO2 [Moles/Vol] 25.3 mmol/L 22.0-30.0 [facility] Serum or plasma urea nitroge n measurement (mass/volume)on 01-01-2021 Urea nitrogen [Mass/Vol] 18 mg/dL 9-23 [facility] CULTURE, URINE, ROUTINEon CULTURE, URINE, ROUTINE SEE NOTE Normal [facility] Comment on above: Result Comment: CULTURE, URINE, ROUTINE Micro Number: [id number] Test Status: Final Specimen Source: NOT GIVEN Specimen Quality: Adequate Result: Less than 10,000 CFU/mL of single Gram negative organism isolated. No further testing will be performed. If clinically indicated, recollection using a method to minimize contamination, with prompt transfer to Urine Culture Transport Tube, is recommended. Performed By: #### 3 95 #### [facility], [address] [place] [id number] Manager Linux: Edmundo Dacosta MD Vital Signs Date Time Vital Sign Value Performing Clinician Facility 07-09-2025 15:22-0400 Body height 165.1 cm Sherrill Carlin DO Work Phone: [facility] 07-09-2025 15:22-0400 Body mass index (BMI) [Ratio] 25.83 kg/m2 Sherrill Carlin DO Work Phone: [facility] 07-09-2025 15:22-0400 Body temperature 98.29 [degF] Sherrill Carlin DO Work Phone: [facility] 07-09-2025 15:22-0400 Body weight 70.4 kg Sherrill Carlin DO Work Phone: [facility] 07-09-2025 15:22-0400 Diastolic blood pressure 64 mm[Hg] Sherrill Carlin DO Work Phone: [facility] 07-09-2025 15:22-0400 Heart rate 90 /min Sherrill Carlin DO Work Phone: [facility] 07-09-2025 15:22-0400 Respiratory rate 18 /min Sherrill Carlin DO Work Phone: [facility] 07-09-2025 15:22-0400 SaO2% (BldA) [Mass fraction] 98 % Sherrill Carlin DO Work Phone: [facility] 07-09-2025 15:22-0400 Systolic blood pressure 120 mm[Hg] Sherrill Carlin DO Work Phone: [facility] 07-08-2025 11:12-0400 Body height 160.6 cm Sherrill Carlin DO Work Phone: [facility] 07-08-2025 11:12-0400 Body mass index (BMI) [Ratio] 27.2 kg/m2 Sherrill Carlin DO Work Phone: [facility] 07-08-2025 11:12-0400 Body weight 70.3 kg Sherrill Yuhas DO Work Phone: [facility] 07-08-2025 10:140400 Body height 159.69 cm Sherrill Yuhas DO Work Phone: [facility] 07-08-2025 10:14-0400 Body mass index (BMI) [Ratio] 27.7 kg/m2 Sherrill Yuhas DO Work Phone: [facility] 07-08-2025 10:140400 Body weight 70.8 kg Sherrill Yuhas DO Work Phone: [facility] 07-08-2025 10:14-0400 Diastolic blood pressure 68 mm[Hg] Sherrill Yuhas DO Work Phone: [facility] 07-08-2025 10:14-0400 Heart rate 84 /min Sherrill Odenhas DO Work Phone: [facility] 07-08-2025 10:14-0400 Respiratory rate 18 /min Sherrill Yuhas DO Work Phone: [facility] 07-08-2025 10:14-0400 SaO2% (BldA) [Mass fraction] 99 % Sherrill Yuhas DO Work Phone: [facility] 07-08-2025 10:14-0400 Systolic blood pressure 129 mm[Hg] Sherrill Yuhas DO Work Phone: [facility] 06-05-2025 11:07-0400 Body height 159.69 cm Sherrill Yuhas DO Work Phone: [facility] 06-05-2025 11:07-0400 Body mass index (BMI) [Ratio] 27.6 kg/m2 Sherrill Yuhas DO Work Phone: [facility] 06-05-2025 11:07-0400 Body weight 70.3 kg Sherrill Odenhas DO Work Phone: [facility] 06-05-2025 11:07-0400 Diastolic blood pressure 70 mm[Hg] Sherrill Odenhas DO Work Phone: [facility] 06-05-2025 11:07-0400 Heart rate 86 /min Sherrill Odenhas DO Work Phone: [facility] 06-05-2025 11:07-0400 Respiratory rate 18 /min Sherrill Odenhas DO Work Phone: [facility] 06-05-2025 11:07-0400 SaO2% (BldA) [Mass fraction] 97 % Sherrill Odenhas DO Work Phone: [facility] 06-05-2025 11:07-0400 Systolic blood pressure 118 mm[Hg] Sherrill Odenhas DO Work Phone: [facility] 05-20-2025 14:26-0400 Body height 159.69 cm Sherrill Odenhas DO Work Phone: [facility] 05-20-2025 14:26-0400 Body mass index (BMI) [Ratio] 30.4 kg/m2 Sherrill Odenhas DO Work Phone: [facility] 05-20-2025 14:26-0400 Body weight 77.56 kg Sherrill Odenhas DO Work Phone: [facility] 05-01-2025 10:44-0400 Body height 160.02 cm [facility] 05-01-2025 10:44-0400 Body mass index (BMI) [Ratio] 27.6 kg/m2 [facility] 05-01-2025 10:44-0400 Body weight 70.9 kg [facility] 05-01-2025 10:44-0400 Diastolic blood pressure 76 mm[Hg] [facility] 05-01-2025 10:44-0400 Heart rate 81 /min [facility] 05-01-2025 10:44-0400 Respiratory rate 18 /min [facility] 05-01-2025 10:44-0400 SaO2% (BldA) [Mass fraction] 99 % [facility] 05-01-2025 10:44-0400 Systolic blood pressure 125 mm[Hg] [facility] 02-19-2025 13:36-0400 Body height 160.02 cm [facility] 02-19-2025 13:36-0400 Body mass index (BMI) [Ratio] 27.9 kg/m2 [facility] 02-19-2025 13:36-0400 Body weight 71.5 kg [facility] 02-19-2025 13:36-0400 Diastolic blood pressure 70 mm[Hg] [facility] 02-19-2025 13:36-0400 Heart rate 83 /min [facility] 02-19-2025 13:36-0400 Respiratory rate 16 /min [facility] 02-19-2025 13:36-0400 SaO2% (BldA) [Mass fraction] 98 % [facility] 02-19-2025 13:36-0400 Systolic blood pressure 114 mm[Hg] [facility] 01-29-2025 13:24-0500 Body height 160.02 cm [facility] 01-29-2025 13:24-0500 Body mass index (BMI) [Ratio] 27.3 kg/m2 [facility] 01-29-2025 13:24-0500 Body weight 70.1 kg [facility] 01-29-2025 13:24-0500 Diastolic blood pressure 70 mm[Hg] [facility] 01-29-2025 13:24-0500 Heart rate 86 /min [facility] 01-29-2025 13:24-0500 Respiratory rate 18 /min [facility] 01-29-2025 13:24-0500 SaO2% (BldA) [Mass fraction] 97 % [facility] 01-29-2025 13:24-0500 Systolic blood pressure 111 mm[Hg] [facility] 11-19-2024 13:42-0500 Body height 165.1 cm Sherrill Jesusmatt DO Work Phone: [facility] 11-19-2024 13:42-0500 Body mass index (BMI) [Ratio] 25.56 kg/m2 Sherrill Lees DO Work Phone: [facility] 11-19-2024 13:42-0500 Body temperature 97.59 [degF] Sherrill Lees DO Work Phone: [facility] 11-19-2024 13:42-0500 Body weight 69.67 kg Sherrill Lees DO Work Phone: [facility] 11-19-2024 13:42-0500 Diastolic blood pressure 70 mm[Hg] Sherrill Lees DO Work Phone: [facility] 11-19-2024 13:42-0500 Heart rate 84 /min Sherrill Lees DO Work Phone: [facility] 11-19-2024 13:42-0500 Respiratory rate 18 /min Sherrill Lees DO Work Phone: [facility] 11-19-2024 13:42-0500 SaO2% (BldA) [Mass fraction] 98 % Sherrill Lees DO Work Phone: [facility] 11-19-2024 13:42-0500 Systolic blood pressure 110 mm[Hg] Sherrill Lees DO Work Phone: [facility] 11-14-2024 11:21-0500 Body height 160.02 cm [facility] 11-14-2024 11:21-0500 Body mass index (BMI) [Ratio] 27.3 kg/m2 [facility] 11-14-2024 11:21-0500 Body weight 70.08 kg [facility] 11-14-2024 11:21-0500 Diastolic blood pressure 78 mm[Hg] [facility] 11-14-2024 11:21-0500 Heart rate 83 /min [facility] 11-14-2024 11:21-0500 Respiratory rate 18 /min [facility] 11-14-2024 11:21-0500 SaO2% (BldA) [Mass fraction] 99 % [facility] 11-14-2024 11:21-0500 Systolic blood pressure 137 mm[Hg] [facility] 10-09-2024 11:48-0500 Body height 160.02 cm Sherrill Lees DO Work Phone: [facility] 10-09-2024 11:48-0500 Body mass index (BMI) [Ratio] 27.1 kg/m2 Sherrill Yuhas DO Work Phone: [facility] 10-09-2024 11:48-0500 Body weight 69.51 kg Sherrill Odenhas DO Work Phone: [facility] 10-09-2024 11:48-0500 Diastolic blood pressure 68 mm[Hg] Sherrill Odenhas DO Work Phone: [facility] 10-09-2024 11:48-0500 Heart rate 87 /min Sherrill Odenhas DO Work Phone: [facility] 10-09-2024 11:48-0500 Respiratory rate 18 /min Sherrill Yuhas DO Work Phone: [facility] 10-09-2024 11:48-0500 SaO2% (BldA) [Mass fraction] 98 % Sherrill Odenhas DO Work Phone: [facility] 10-09-2024 11:48-0500 Systolic blood pressure 109 mm[Hg] Sherrill Yuhas DO Work Phone: [facility] 09-25-2024 08:29-0400 Body height 160.02 cm DO Sherrill Yuhas Work Phone: [facility] 09-25-2024 08:29-0400 Body mass index (BMI) [Ratio] 26.9 kg/m2 DO Sherrill Yuhas Work Phone: [facility] 09-25-2024 08:29-0400 Body temperature 96.5 [degF] DO Sherrill Yuhas Work Phone: [facility] 09-25-2024 08:29-0400 Body weight 68.94 kg DO Sherrill Lees Work Phone: [facility] 09-25-2024 08:29-0400 Diastolic blood pressure 71 mm[Hg] DO Sherrill Lees Work Phone: [facility] 09-25-2024 08:29-0400 Heart rate 80 /min DO Sherrill Lees Work Phone: [facility] 09-25-2024 08:29-0400 Respiratory rate 16 /min DO Sherrill Lees Work Phone: [facility] 09-25-2024 08:29-0400 SaO2% (BldA) [Mass fraction] 100 % DO Sherrill Carlin Work Phone: [facility] 09-25-2024 08:29-0400 Systolic blood pressure 113 mm[Hg] DO Sherrill Carlin Work Phone: [facility] 08-28-2024 10:14-0400 Body height 160.02 cm [facility] 08-28-2024 10:14-0400 Body mass index (BMI) [Ratio] 27.3 kg/m2 [facility] 08-28-2024 10:14-0400 Body weight 69.88 kg [facility] 08-28-2024 10:14-0400 Diastolic blood pressure 73 mm[Hg] [facility] 08-28-2024 10:14-0400 Heart rate 85 /min [facility] 08-28-2024 10:14-0400 Respiratory rate 18 /min [facility] 08-28-2024 10:14-0400 SaO2% (BldA) [Mass fraction] 99 % [facility] 08-28-2024 10:14-0400 Systolic blood pressure 111 mm[Hg] [facility] 07-03-2024 09:16-0400 Body height 160.02 cm DO Sherrill Yuhas Work Phone: [facility] 07-03-2024 09:16-0400 Body mass index (BMI) [Ratio] 27.6 kg/m2 DO Sherrill Yuhas Work Phone: [facility] 07-03-2024 09:16-0400 Body weight 70.59 kg DO Sherrill Yuhas Work Phone: [facility] 06-27-2024 09:58-0400 Body height 160.02 cm DO Sherrill Yuhas Work Phone: [facility] 06-27-2024 09:58-0400 Body mass index (BMI) [Ratio] 27.6 kg/m2 DO Sherrill Yuhas Work Phone: [facility] 06-27-2024 09:58-0400 Body weight 70.81 kg DO Sherrill Yuhas Work Phone: [facility] 06-27-2024 09:58-0400 Diastolic blood pressure 72 mm[Hg] DO Sherrill Yuhas Work Phone: [facility] 06-27-2024 09:58-0400 Heart rate 90 /min DO Sherrill Cecillehas Work Phone: [facility] 06-27-2024 09:58-0400 Respiratory rate 18 /min DO Sherrill Odenhas Work Phone: [facility] 06-27-2024 09:58-0400 SaO2% (BldA) [Mass fraction] 98 % DO Sherrill Yuhas Work Phone: [facility] 06-27-2024 09:58-0400 Systolic blood pressure 126 mm[Hg] DO Sherrill Yuhas Work Phone: [facility] 05-15-2024 09:30-0400 Body height 160.02 cm DO Sherrill Yuhas Work Phone: [facility] 05-15-2024 09:30-0400 Body mass index (BMI) [Ratio] 28.3 kg/m2 DO Sherrill Carlin Work Phone: [facility] 05-15-2024 09:30-0400 Body weight 72.63 kg DO Sherrill Carlin Work Phone: [facility] 05-15-2024 09:30-0400 Diastolic blood pressure 71 mm[Hg] DO Sherrill Carlin Work Phone: [facility] 05-15-2024 09:30-0400 Respiratory rate 18 /min DO Sherrill Carlin Work Phone: [facility] 05-15-2024 09:30-0400 SaO2% (BldA) [Mass fraction] 98 % DO Sherrill Carlin Work Phone: [facility] 05-15-2024 09:30-0400 Systolic blood pressure 114 mm[Hg] DO Sherrill Carlin Work Phone: [facility] 04-30-2024 15:01-0400 Body height 160.02 cm [facility] 04-30-2024 15:01-0400 Body mass index (BMI) [Ratio] 29 kg/m2 [facility] 04-30-2024 15:01-0400 Body weight 74.38 kg [facility] 04-30-2024 15:01-0400 Diastolic blood pressure 80 mm[Hg] [facility] 04-30-2024 15:01-0400 Heart rate 98 /min [facility] 04-30-2024 15:01-0400 Respiratory rate 18 /min [facility] 04-30-2024 15:01-0400 SaO2% (BldA) [Mass fraction] 98 % [facility] 04-30-2024 15:01-0400 Systolic blood pressure 127 mm[Hg] [facility] 04-03-2024 10:44-0400 Body height 160.02 cm [facility] 04-03-2024 10:44-0400 Body mass index (BMI) [Ratio] 30.2 kg/m2 [facility] 04-03-2024 10:44-0400 Body weight 77.59 kg [facility] 04-03-2024 10:44-0400 Diastolic blood pressure 67 mm[Hg] [facility] 04-03-2024 10:44-0400 Heart rate 86 /min [facility] 04-03-2024 10:44-0400 Respiratory rate 18 /min [facility] 04-03-2024 10:44-0400 SaO2% (BldA) [Mass fraction] 98 % [facility] 04-03-2024 10:44-0400 Systolic blood pressure 146 mm[Hg] [facility] 01-12-2024 09:40-0500 Body height 165.1 cm Sherrill Carlin DO Work Phone: [facility] 01-12-2024 09:40-0500 Body mass index (BMI) [Ratio] 27.97 kg/m2 Sherrill Carlin DO Work Phone: [facility] 01-12-2024 09:40-0500 Body temperature 97.81 [degF] Sherrill Lees DO Work Phone: [facility] 01-12-2024 09:40-0500 Body weight 76.25 kg Sherrill Cecillesheilas DO Work Phone: [facility] 01-12-2024 09:40-0500 Diastolic blood pressure 66 mm[Hg] Sherrill Carlin DO Work Phone: [facility] 01-12-2024 09:40-0500 Heart rate 91 /min Sherrill Lees DO Work Phone: [facility] 01-12-2024 09:40-0500 SaO2% (BldA) [Mass fraction] 97 % Sherrill Lees DO Work Phone: [facility] 01-12-2024 09:40-0500 Systolic blood pressure 110 mm[Hg] Sherrill Carlin DO Work Phone: [facility] 09-26-2023 09:00-0400 Body height 165.1 cm Buddy [facility] Other 09-26-2023 09:00-0400 Body mass index (BMI) [Ratio] 28.35 kg/m2 Buddy [facility] 09-26-2023 09:00-0400 Body temperature 96.3 [degF] Buddy Miranda [facility] 09-26-2023 09:00-0400 Body weight 77.29 kg Buddy Miranda [facility] Other 09-26-2023 09:00-0400 Diastolic blood pressure 84 mm[Hg] Buddy Miranda [facility] 09-26-2023 09:00-0400 Respiratory rate 16 /min Buddy Miranda [facility] Other 09-26-2023 09:00-0400 Systolic blood pressure 138 mm[Hg] Buddy Miranda [facility] Other 09-21-2022 10:00-0400 Body height 165.1 cm Buddy Miranda [facility] Other 09-21-2022 10:00-0400 Body mass index (BMI) [Ratio] 26.76 kg/m2 Buddy [facility] 09-21-2022 10:00-0400 Body temperature 97.5 [degF] Buddy Miranda [facility] Other 09-21-2022 10:00-0400 Body weight 72.94 kg Buddy Miranda [facility] Other 09-21-2022 10:00-0400 Diastolic blood pressure 79 mm[Hg] Buddy Miranda [facility] Other 09-21-2022 10:00-0400 Respiratory rate 18 /min Buddy Miranda [facility] Other 09-21-2022 10:00-0400 SaO2% (BldA) [Mass fraction] 98 % Buddy Miranda [facility] Other 09-21-2022 10:00-0400 Systolic blood pressure 133 mm[Hg] Buddy Miranda [facility] Other Encounters Encounter Date Encounter Type Care Provider Facility Start: 07-16-2025 End: 07-16-2025 Refill Sherrill Carlin DO Work Phone: [facility] Comment on above: Mixed hyperlipidemia Start: 07-09-2025 End: 07-09-2025 Encounter for general adult medical examination with abnormal findings Sherrill Carlin DO Work Phone: [facility] [employer] [facility] Start: 07-09-2025 End: 07-09-2025 Periodic preventive med est patient 40-64yrs Sherrill Carlin DO Work Phone: [facility] Comment on above: Abnormal wellness ex am (Primary Dx); Mixed hyperlipidemia; At risk for coronary artery disease; Encounter for screening mammogram for malignant neoplasm of breast; 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 Start: 07-09-2025 End: 07-09-2025 ambulatory SHERRILL CARLIN [facility] Start: 07-08-2025 End: 07-08-2025 ambulatory Sherrill Carlin DO Work Phone: [facility] Work Phone: Start: 07-08-2025 End: 07-08-2025 Patient encounter procedure Tony Delarosa -[facility] Work Phone: Start: 07-08-2025 End: 07-08-2025 ambulatory Sherrill Carlin DO Work Phone: [facility] Work Phone: Start: 07-08-2025 End: 07-08-2025 Patient encounter procedure Apolinar Kelly MD -[facility] Work Phone: Start: 06-05-2025 End: 06-05-2025 ambulatory Sherrill Carlin DO Work Phone: [facility] Work Phone: Start: 06-05-2025 End: 06-05-2025 Patient encounter procedure Rodger Avila [employer] [facility] Work Phone: Start: 06-03-2025 End: 06-03-2025 Patient encounter procedure Rodger Avila [employer] -[facility] Work Phone: Start: 06-03-2025 End: 06-03-2025 ambulatory Sherrill Carlin DO Work Phone: [facility] Work Phone: Start: 05-20-2025 End: 05-20-2025 Patient encounter procedure Tony Delarosa -[facility] Work Phone: Start: 05-01-2025 End: 05-01-2025 ambulatory [facility] Work Phone: Start: 05-01-2025 End: 05-01-2025 Patient encounter procedure [facility] Work Phone: Start: 04-03-2025 End: 04-03-2025 Celso Thakur MD Work Phone: [facility] Start: 03-13-2025 End: 03-13-2025 Refill Sherrill Carlin DO Work Phone: [facility] Comment on above: Mixed hyperlipidemia Start: 02-20-2025 End: 02-20-2025 Office outpatient visit 25 minutes Sherrill Thakur MD Work Phone: [facility] Comment on above: 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, indeterminate stage (Primary Dx); Anophthalmos of right eye; 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 (CMS-HCC); Pseudophakia of left eye Start: 02-20-2025 End: 02-20-2025 ambulatory Ppva Ophth Imaging [facility] Comment on above: 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, indeterminate stage Start: 02-19-2025 End: 02-19-2025 ambulatory [facility] Work Phone: Start: 02-19-2025 End: 02-19-2025 Patient encounter procedure [facility] Work Phone: Start: 01-29-2025 End: 01-29-2025 ambulatory [facility] Work Phone: Start: 01-29-2025 End: 01-29-2025 Patient encounter procedure [facility] Work Phone: Start: 11-19-2024 End: 11-19-2024 Office outpatient visit 25 minutes Sherrill Carlin DO Work Phone: [facility] Comment on above: Spinal stenosis of l umbar region with neurogenic claudication (Primary Dx); Osteoarthritis of right patellofemoral joint; Mixed hyperlipidemia Start: 11-19-2024 End: 11-19-2024 [facility] Start: 11-14-2024 End: 11-14-2024 Patient encounter procedure [facility] Work Phone: Start: 10-29-2024 End: 10-29-2024 Refill Sherrill Carlin DO Work Phone: [facility] Comment on above: Mixed hyperlipidemia Start: 10-09-2024 End: 10-09-2024 ambulatory Sherrill Carlin DO Work Phone: [facility] Work Phone: Start: 10-09-2024 End: 10-09-2024 Patient encounter procedure Sherrill Carlin DO Work Phone: [facility] Work Phone: Start: 10-01-2024 End: 10-01-2024 Bamboo flowsheet Ghanshyam A Felter DIRECTOR OF LAND-WEB MARKETING MANAGER Work Phone: [facility] Start: 10-01-2024 End: 10-01-2024 Bamboo flowsheet Ghanshyam A Felter DIRECTOR OF LAND-WEB MARKETING MANAGER Work Phone: [facility] Start: 10-01-2024 End: 10-01-2024 Office outpatient visit 15 minutes Ghanshyam A Felter DIRECTOR OF LAND-WEB MARKETING MANAGER Work Phone: [facility] Comment on above: Other atopic dermati tis; Other seborrheic dermatitis; EIC (epidermal inclusion cyst) Start: 10-01-2024 End: 10-01-2024 ambulatory GHANSHYAM A FELTER Not Available Start: 09-25-2024 End: 09-25-2024 ambulatory DO Sherrill Carlin Work Phone: [facility] Work Phone: Start: 09-25-2024 End: 09-25-2024 Patient encounter procedure DO Sherrill Carlin Work Phone: [facility] Work Phone: Start: 09-21-2024 End: 09-21-2024 Patient encounter procedure DO Sherrill Carlin Work Phone: [facility] [place] Work Phone: Start: 09-21-2024 End: 09-21-2024 ambulatory Buddy Miranda Facility:[facility] Start: 09-10-2024 End: 09-10-2024 ambulatory Ppww Ophth Imaging [facility] Comment on above: 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 (CMS-HCC) Start: 09-10-2024 End: 09-10-2024 Office outpatient visit 15 minutes Shefali Bailey MD Work Phone: [facility] Comment on above: 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 ([facility]) (Primary Dx); Anophthalmos of right eye; Primary open angle glaucoma of left eye, indeterminate stage Start: 09-10-2024 End: 09-10-2024 ambulatory SHEFALI BAILEY [facility] Start: 08-28-2024 End: 08-28-2024 ambulatory [facility] Work Phone: Start: 08-28-2024 End: 08-28-2024 Patient encounter procedure [facility] Work Phone: Start: 08-22-2024 End: 08-22-2024 Refill Sherrill Carlin DO Work Phone: [facility] Comment on above: Mixed hyperlipidemia Start: 07-03-2024 End: 07-03-2024 ambulatory DO Sherrill Carlin Work Phone: [facility] Work Phone: Start: 07-03-2024 End: 07-03-2024 Patient encounter procedure DO Sherrill Carlin Work Phone: [facility] Work Phone: Start: 06-27-2024 End: 06-27-2024 ambulatory DO Sherrill Carlin Work Phone: [facility] Work Phone: Start: 06-27-2024 End: 06-27-2024 Patient encounter procedure DO Sherrill Carlin Work Phone: [facility] Work Phone: Start: 05-21-2024 End: 05-21-2024 Refedison Gregg CMA [facility] Comment on above: Diabetic peripheral neuropathy ([facility]) Start: 05-15-2024 End: 05-15-2024 ambulatory DO Sherrill Carlin Work Phone: [facility] Work Phone: Start: 05-15-2024 End: 05-15-2024 Patient encounter procedure DO Sherrill Carlin Work Phone: [facility] Work Phone: Start: 05-14-2024 End: 05-14-2024 ambulatory DO Sherrill Carlin Work Phone: [facility] Work Phone: Start: 05-14-2024 End: 05-14-2024 Patient encounter procedure DO Sherrill Carlin Work Phone: [facility] [place] Work Phone: Start: 05-02-2024 End: 05-02-2024 ambulatory [facility] Work Phone: Start: 05-02-2024 End: 05-02-2024 Patient encounter procedure [facility] Work Phone: Start: 05-01-2024 End: 05-10-2024 Telephone encounter Sherrill Carlin DO Work Phone: [facility] Start: 04-30-2024 End: 04-30-2024 ambulatory [facility] Work Phone: Start: 04-30-2024 End: 04-30-2024 Patient encounter procedure [facility] Work Phone: Start: 04-25-2024 End: 04-25-2024 ambulatory [facility] Work Phone: Start: 04-25-2024 End: 04-25-2024 Patient encounter procedure [facility] Work Phone: Start: 04-12-2024 End: 04-12-2024 Patient encounter procedure [facility] Work Phone: Start: 04-11-2024 Non-patient / Non-visit [facility] Work Phone: Start: 04-03-2024 End: 04-03-2024 ambulatory [facility] Work Phone: Start: 04-03-2024 End: 04-03-2024 Patient encounter procedure [facility] Work Phone: Start: 03-14-2024 End: 03-14-2024 Refill Sherrill Carlin DO Work Phone: [facility] Comment on above: Mixed hyperlipidemia Start: 02-28-2024 Refill Sherrill Vidal O Work Phone: [facility] Comment on above: Diabetic peripheral neuropathy ([facility]-H[facility]) Start: 02-09-2024 End: 02-09-2024 ambulatory [facility] Comment on above: 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, indeterminate stage Start: 02-09-2024 End: 02-09-2024 Office outpatient visit 25 minutes Sherrill Thakur MD Work Phone: [facility] Comment on above: 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, indeterminate stage (Primary Dx); Pseudophakia of left eye; 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 ([facility]-HCC); Anophthalmos of right eye Start: 01-30-2024 Telephone encounter Carey Daniels MA [facility] Comment on above: Preventative Screeni ng Start: 01-12-2024 End: 01-13-2024 ambulatory SHERRILL CARLIN [facility] Start: 01-12-2024 Non-patient / Non-visit [facility] Work Phone: Start: 01-12-2024 End: 01-12-2024 Office outpatient visit 25 minutes Sherrill Carlin DO Work Phone: [facility] Comment on above: 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 ([facility]) (Primary Dx); Mixed hyperlipidemia; Stage 3a chronic kidney disease ([facility]) Start: 01-11-2024 Refill Juarez Carmina hawkins DO Work Phone: [facility] Comment on above: Chronic hyperkalemia Start: 12-13-2023 Refill Sherrill Carlin D O Work Phone: [facility] Comment on above: Diabetic peripheral neuropathy ([facility]) Start: 09-26-2023 End: 09-26-2023 ambulatory Buddy Miranda Other [employer] Other Start: 09-26-2023 Office outpatient vi sit 25 minutes Buddy Miranda [facility] Start: 09-22-2023 End: 09-22-2023 ambulatory DO Sherrill Carlin Work Phone: [facility] Work Phone: Start: 09-22-2023 End: 09-22-2023 Patient encounter procedure DO Sherrill Carlin Work Phone: [facility] [place] Work Phone: Start: 03-17-2023 End: 03-18-[address] SHERRILL CARLIN Facility: Start: 09-21-2022 End: 09-21-2022 ambulatory Buddy Miranda Other [employer] Other Start: 09-21-2022 Office outpatient vi sit 15 minutes [facility] Start: 09-20-2022 End: 09-20-2022 ambulatory DO Sherrill Carlin Work Phone: [facility] Work Phone: Start: 09-20-2022 End: 09-20-2022 Patient encounter procedure DO Sherrill Carlin Work Phone: [facility] [place] Start: 07-12-2022 End: 07-12-2022 Patient encounter procedure DO Sherrill Carlin Work Phone: [facility] Start: 01-01-2021 End: 01-01-2021 Patient encounter procedure [...] Urine by Test strip Sherrill Carlin DO [employer] Phone: Plan of Treatment Date Care Activity Detail Author Start: 01-03-2030 DTaP,Tdap and Td Vaccines (2 - Td or Tdap) DTaP,Tdap and Td Vaccines (2 - Td or Tdap) [facility] Start: 06-07-2027 Screening for malign ant neoplasm of colon [facility] Start: 07-09-2026 Adult BMI Screening Adult BMI Screen ing [facility] Start: 07-09-2026 Depression Screening Depression Scre ening [facility] Start: 03-13-2026 Statin Use: Diabetic Statin Use: Krista betic [facility] Start: 02-24-2026 End: 02-24-2026 Patient encounter procedure 02/24/2026 3:10 PM EDT [facility] [address] [place] [phone] Sherrill Thakur MD [address] [place] [address] [facility] Start: 02-24-2026 End: 02-24-2026 ambulatory 02/24/2026 3:00 PM EDT Ophthalmology Imaging [facility] [address] [place] [address] [facility] Start: 02-20-2026 Glaucoma screening Diabetic Op hthalmology Exam [facility] Start: 02-20-2026 Tobacco Screening Tobacco Screening [facility] Start: 11-19-2025 Adult BMI Screening Adult BMI Screen ing [facility] Start: 11-19-2025 Tobacco Screening Tobacco Screening [facility] Start: 10-01-2025 End: 10-01-2025 Patient encounter procedure 10/01/2025 9:50 AM EST Office Visit [facility] [address] [place] [address] Wayne Ghanshyam Musa, DIRECTOR OF LAND-WEB MARKETING MANAGER [address] [place] [address] [facility] Start: 09-16-2025 End: 09-16-2025 Patient encounter procedure [facility] Start: 09-10-2025 Glaucoma screening Diabetic Op hthalmology Exam [facility] Start: 09-10-2025 Tobacco Screening Tobacco Screening [facility] Start: 07-29-2025 Influenza vaccination Influenza Vacc ine [facility] Start: 07-09-2025 End: 07-09-2026 CT Heart and Coronary arteries for calcium scoring WO contrast CT heart without contrast including scoring Imaging Routine At risk for coronary artery disease Expected: 07/09/2025, Expires: 07/09/2026 [facility] Comment on above: Expected: 07/09/2025 , Expires: 07/09/2026 Start: 07-09-2025 End: 07-09-2026 DBT Breast - bilateral screening Mammography screening bilateral with CAD Imaging Routine Encounter for screening mammogram for malignant neoplasm of breast Expected: 07/09/2025, Expires: 07/09/2026 [facility] Comment on above: Expected: 07/09/2025 , Expires: 07/09/2026 Start: 02-20-2025 End: 02-20-2025 ambulatory 02/20/2025 3:20 PM EDT Ophthalmology Imaging [facility] [address] [place] [address] [facility] Start: 02-20-2025 End: 02-20-2025 Patient encounter procedure 02/20/2025 3:20 PM EDT Office Visit [facility] [address] [place] [address] Sherrill Thakur MD [address] [place] [address] [facility] Start: 02-08-2025 Glaucoma screening Diabetic Op hthalmology Exam [facility] Start: 02-08-2025 Tobacco Screening Tobacco Screening [facility] Start: 01-12-2025 Adult BMI Screening Adult BMI Screen ing [facility] Start: 01-12-2025 Depression Screening Depression Scre ening [facility] Start: 01-12-2025 Tobacco Screening Tobacco Screening [facility] Start: 01-12-2025 Urine screening for protein Urine Microalbumin [facility] Start: 12-13-2024 Statin Use: Diabetic Statin Use: Krista betic [facility] Start: 11-14-2024 End: 11-14-2024 Patient encounter procedure 11/14/2024 2:00 PM EST [facility] [address] [place] [address] Sherrill Carlin, [address] [place] [address] [facility] Start: 10-01-2024 End: 10-01-2024 Patient encounter procedure 10/01/2024 9:50 AM EST Office Visit [facility] [address] [place] [address] Ghanshyam Black, DIRECTOR OF LAND-WEB MARKETING MANAGER [address] [place] [address] Arrived [facility] Comment on above: Arrived Start: 09-10-2024 End: 09-10-2024 Patient encounter procedure 09/10/2024 3:30 PM EDT Office Visit [facility] [address] [place] [phone] Shefali Bailey MD [address] [place], [place] [id number] [facility] Start: 09-05-2024 Glaucoma screening Diabetic Op hthalmology Exam [facility] Start: 09-05-2024 Tobacco Screening Tobacco Screening [facility] Start: 08-23-2024 Adult BMI Screening Adult BMI Screen ing [facility] Start: 08-23-2024 Depression Screening Depression Scre ening [facility] Start: 07-29-2024 COVID-19 Vaccine ( season) COVID-19 Vaccine () [facility] Start: 07-29-2024 Influenza vaccination [facility] Start: 05-14-2024 Insulin C-peptide measurement [facility] Start: 03-03-2024 Diabetic foot examination Diabetic Foot Exam [facility] Start: 03-03-2024 Urine screening for protein Urine Microalbumin [facility] Start: 02-09-2024 End: 02-09-2024 Patient encounter procedure 02/09/2024 8:10 AM EDT Office Visit [facility] [address] [place] [phone] Sherrill Thakur MD [address] [place], [place] [phone] [facility] Start: 02-09-2024 End: 02-09-2024 ambulatory 02/09/2024 8:00 AM EDT [facility] [address] [place] [address] [facility] Start: 01-12-2024 End: 01-12-2024 Patient encounter procedure 01/12/2024 9:20 AM EST Office Visit [facility] [address] [place] [address] Sherrill Carlin, DO [address] [place] [address] [facility] Start: 07-29-2023 COVID-19 Vaccine ( season) COVID-19 Vaccine ( season) [facility] Start: 07-29-2023 Influenza vaccination Influenza Vacc ine [facility] Start: 12-08-2021 Screening for malign ant neoplasm of colon [facility] Start: 2008 Screening for malign ant neoplasm of breast Mammogram [facility] Start: 1998 Screening for malign ant neoplasm of cervix [facility] Start: 1989 Screening for malign ant neoplasm of cervix Pap Smear [facility] Start: 1986 Adult BMI Follow Up Plan Adult BMI Follow Up Plan [facility] Start: 1968 Screening for malign ant neoplasm of colon [facility] Comprehensive metabo lic 2000 panel - Serum or Plasma [facility] Comprehensive metabo lic 2000 panel - Serum or Plasma [facility] End: 07-09-2026 Comprehensive metabolic 2000 panel - Serum or Plasma Comprehensive metabolic panel Lab Routine Mixed hyperlipidemia 1 Occurrences starting 07/09/2025 until 07/09/2026 [facility] Work Phone: Comment on above: 1 Occurrences starti ng 07/09/2025 until 07/09/2026 Insulin C-peptide measurement [facility] End: 07-09-2026 Lipid 1996 panel - Serum or Plasma Lipid profile Lab Routine Mixed hyperlipidemia 1 Occurrences starting 07/09/2025 until 07/09/2026 [facility] Comment on above: 1 Occurrences starti ng 07/09/2025 until 07/09/2026 Patient Education Diabetes and diet [facility] Work Phone: [facility] Immunizations Immunization Date Immunization Notes Care Provider Fa cility 11-27-2024 influenza virus vacc ine, unspecified formulation Sherrill Carlin DO Work Phone: [facility] 11-09-2023 influenza, injectabl e, quadrivalent, preservative free Sherrill Lees DO Work Phone: [facility] 11-09-2023 influenza virus vacc ine, unspecified formulation Sherrill Lees DO Work Phone: [facility] 09-23-2022 zoster vaccine recombinant Sherrill Lees DO Work Phone: [facility] 07-14-2022 zoster vaccine recombinant Sherrill Carlin DO Work Phone: [facility] 01-03-2020 tetanus toxoid, redu shane diphtheria toxoid, and acellular pertussis vaccine, adsorbed Sherrill Carlin DO Work Phone: [facility] 10-04-2019 Influenza, injectabl e, Madin [place] Canine Kidney, quadrivalent with preservative Sherrill Lees DO Work Phone: [facility] 10-04-2019 influenza virus vacc ine, unspecified formulation Sherrill Lees DO Work Phone: [facility] 10-24-2018 Influenza, injectabl e, Madin Vikki Canine Kidney, preservative free, quadrivalent Sherrill Odenhas DO Work Phone: [facility] 10-24-2018 pneumococcal polysaccharide vaccine, 23 valent Sherrill Lees DO Work Phone: [facility] 10-12-2017 Influenza, injectabl e, Madin Vikki Canine Kidney, preservative free, quadrivalent Sherrill Odenhas DO Work Phone: [facility] 10-12-2017 pneumococcal conjuga te vaccine, 13 valent Sherrill Odenhas DO Work Phone: [facility] 11-10-2016 influenza, seasonal, injectable, preservative free Sherrill Odenhas DO Work Phone: [facility] 10-28-2015 influenza, seasonal, injectable, preservative free Sherrill Odenhas DO Work Phone: [facility] 08-07-2014 influenza, seasonal, injectable Sherrill Yuhas DO Work Phone: [facility] Payers Date Payer Category Payer Self-pay [id number] 2023 Private Health Insurance [employer] [id number] 2021 Commercial Managed C are - PPO [employer] [id number] 2021 Unknown [employer] [place] SUPERMED [id number] 2021-Present [phone] [address] [place] [id number] 1968 Unknown [id number] [id number]. 593 1968 Unknown [id number] [id number]. 1286 1968 Unknown [id number] [id number]. 1259 1968 Unknown [id number] [id number]. 1286 1968 Unknown [id number] [id number]. 1286 1968 Unknown [id number] [id number]. 1286 1968 Unknown [id number] [id number]. 1286 1968 Unknown [id number] [id number]. 1286 1968 Unknown [id number] [id number]. 1286 1968 Unknown [id number] [id number]. 1286 1968 Unknown [id number] [id number]. 1286 1959 Unknown [id number] Unknown [id number] Unknown [id number]. 531 Unknown [id number] 531 Social History Date Type Detail [facility] Start: 1970 Sex Assigned At Female [facility] Start: 01-08-2021 End: 09-29-2023 Sex Assigned At [facility] [employer] Other Start: 09-14-2018 End: 03-03-2023 Tobacco smoking status NHIS Never smoked tobacco (finding) [facility] Start: 03-03-2023 End: 09-29-2023 Tobacco use and exposure Smokeless tobacco non-user [facility] [employer] [facility] Start: 09-29-2023 End: 02-20-2025 Alcoholic beverage intake Current drinker of alcohol (finding) [facility] Start: 01-08-2021 End: 09-29-2023 History of Social function [facility] Start: 09-16-2023 Alcohol Comment 3 or 4 drinks on a typical day/ 2 to 4 times a month [facility] Start: 1970 Sex assigned at Not on file P [employer] Start: 07-03-2015 End: 10-09-2024 Sex Female (finding) [facility] Adolescent depressio n screening assessment 0 [facility] Start: 03-03-2023 Alcohol Comment socially [facility] Goals Date Patient Goal Desired [...] and treated at the endocrine clinic in [place]. She states her A1cs have been generally [...] approximately 5 or 6 years ago at [place]. -her neuropathy has been stable. On a [...] topically once a week., Disp: , Rfl: [id number] (KRILL OIL) 212-99-05-50 mg capsule, Take by mouth., Disp: , [...] Testing No results found. Sherrill Carlin DO., [facility] Office: [phone] documented in this encounter [facility] 05-01-2025 Evaluation note Authored May 01, 2025 [...] the plate method. She will see the biological science aide frequently and have a bioimpedance scan done [...] our diabetic department and seeing her diabetic biological science aide Mariama. And her A1c is dropped from [...] and behavioral modification versus short-term dieting. Her [place] was 8 with starting the program. She [...] diabetic nurse practitioner for type 1 diabetes. [facility] Work Phone: [phone]) 518-661906-04-2025 Evaluation note* Author Apolinar Kelly [facility] Authored May 01, 2025 12:17 pm Highest [...] the plate method. She will see the biological science aide frequently and have a bioimpedance scan done [...] our diabetic department and seeing her diabetic biological science aide Mariama. And her A1c is dropped from [...] and behavioral modification versus short-term dieting. Her [place] was 8 with starting the program. She [...] for type 1 diabetes. Author Katelyn Echavarria [facility] Authored July 08, 2025 10 :29am Highest [...] the plate method. She will see the biological science aide frequently and have a bioimpedance scan done [...] our diabetic department and seeing her diabetic biological science aide Mariama. And her A1c is dropped from [...] and behavioral modification versus short-term dieting. Her [place] was 8 with starting the program. She [...] nurse practitioner for type 1 diabetes. [facility] Work Phone: 1(356) 483-263806-04-2025 Evaluation note* Author Apolinar Kelly [facility] Authored May 01, 2025 12:17 pm Highest [...] the plate method. She will see the biological science aide frequently and have a bioimpedance scan done [...] our diabetic department and seeing her diabetic biological science aide Mariama. And her A1c is dropped from [...] and behavioral modification versus short-term dieting. Her [place] was 8 with starting the program. She [...] for type 1 diabetes. Author Apolinar Kelly [facility] Authored July 08, 2025 10 :58am Highest [...] better. She will continue to see the biological science aide frequently and have a bioimpedance scan done [...] our diabetic department and seeing her diabetic biological science aide Mariama. And her A1c is dropped from [...] and behavioral modification versus short-term dieting. Her [place] was 8 with starting the program. She [...] nurse practitioner for type 1 diabetes. [facility] Work Phone: 1([phone]) 877-626303-26-2025 NoteReliability was good. Progression has been stable. Findings include superior arcuate defect, inferior arcuate defect. Notes 24-2 TOP OSMANUALLY TRANSCRIBED [id number] NoteReliability was good. Progression has been stable. Findings include superior arcuate defect, inferior arcuate defect. Notes 24-2 TOP OSMANUALLY TRANSCRIBED [id number] History of Present illness Narrative* Sherrill Thakur [...] eye associated with type 2 diabetes mellitus ([facility]) E11.3552 4. Pseudophakia of left [...] Apply 1 Application topically once a week. vvvra-arxbf-2-agm-ict-rdzqto (KRILL OIL) 587-76-38-50 mg capsule Take by mouth. pregabalin (LYRICA) 100 mg capsule TAKE 1 CAPSULE THREE TIMES A DAY No current facility-administered medications for this visit. (Other) Ms. Dahl has a past medical history of H/O vitrectomy, Hypercholesteremia, S/P YAG capsulotomy, left, and Type 1 diabetes ([facility]). She has a past surgical [...] performed the above service. documented in this encounterBarney Children's Medical CenterFreight Connection [facility] [id number] Instructions* Patient Instructions* Gabby Alexander - 02/20/2025 [...] more? Glaucoma Research Foundation http://www.glaucoma.org/treatment/eyedrop-tips.php National Eye Lena https://www.nei.nih.gov/kyape-yeila-ryh-health/yac-okkklhwyjt-unx-diseases/glauc elizabeth/glaucoma-medicines/krf-kup-wrt-drops Last Reviewed Date 2020-10-29 Consumer Information Use [...] or approved for treating a specific patient. [employer] and its affiliatesdisclaim any warranty or liability relating to this information or the use thereof. The use of thisinformation is governed by the Terms of Use, available at https://www.[employer]/en/know/orrrkplq-wdlxasbtljrsu-lbsgu Copyright Copyright 2022 [employer] and its affiliates and/or licensors. All rights reserved. documented in this encounterWilson Health03-04-2025 Evaluation note* Author Apolinar Kelly [facility] Authored January 29, 2025 3:14 pm Highest [...] our diabetic department and seeing her diabetic biological science aide Mariama. And her A1c is dropped from [...] and behavioral modification versus short-term dieting. Her [place] was 8 with starting the program. She [...] nurse practitioner for type 1 diabetes. [facility] Work Phone: 1(241) 261-800803-04-2025 Evaluation note* Author Katelyn Echavarria [facility] Authored May 01, 2025 11:02 am Highest [...] our diabetic department and seeing her diabetic biological science aide Mariama. And her A1c is dropped from [...] and behavioral modification versus short-term dieting. Her [place] was 8 with starting the program. She [...] nurse practitioner for type 1 diabetes. [facility] Work Phone: 1([phone]) 565-516312-23-2024 History of Present illness Narrative* Sherrill Rosenberg Raegan, DO - 11/19/2024 2:00 PM EST IM PROGRESS NOTE Patient - Yuridia Dahl Age - 54 y.[facility] 1970 [id number] ASSESSMENT & PLAN 1. Spinal stenosis of [...] topically once a week., Disp: , Rfl: mfghs-zhkte-7-iah-juc-nklxek (KRILL OIL) 138-91-25-50 mg capsule, Take by mouth., Disp: , [...] Testing No results found. Sherrill Carlin DO., [facility] Physicians Office: [phone] documented in this encounterWilson Health11-12-2024 Evaluation note* Author Katelyn Echavarria [facility] Authored January 29, 2025 1:43 pm Highest [...] our diabetic department and seeing her diabetic biological science aide Mariama. And her A1c is dropped from [...] and behavioral modification versus short-term dieting. Her [place] was 8 with starting the program. She [...] nurse practitioner for type 1 diabetes. [facility] Work Phone: [phone]) 995-788111-04-2024 History of Present illness Narrative* Ghanshyam Black, DIRECTOR OF LAND-WEB MARKETING MANAGER - 10/01/2024 9:50 AM EST Follow-Up: Diagnosis: [...] year, follow up documented in this encounterCox [id number] NoteQuality was good. Progression has been stable. [...] Sugar/Blood Pressure control and close follow-up with PCP/Cleat Maker -Advised of importance in BS/BP control in [...] both accurate and complete. documented in this encounterWilson Health10-01-2024 Evaluation note* Author Apolinar Kelly [facility] Authored August 28, 2024 9: 57am [...] our diabetic department and seeing her diabetic biological science aide Mariama. And her A1c is dropped from [...] and behavioral modification versus short-term dieting. Her [place] was 8 with starting the program. She [...] for type 1 diabetes. Author Katelyn Echavarria [facility] Authored October 09, 2024 12:04pm Highest [...] our diabetic department and seeing her diabetic biological science aide Mariama. And her A1c is dropped from [...] and behavioral modification versus short-term dieting. Her [place] was 8 with starting the program. She [...] nurse practitioner for type 1 diabetes. [facility] Work Phone: 1([phone]) 274-159607-31-2024 Evaluation note* Author Apolinar Kelly [facility] Authored June 27, 2024 10:4 2am [...] our diabetic department and seeing her diabetic biological science aide Mariama. And her A1c is dropped from [...] and behavioral modification versus short-term dieting. Her [place] was 8 with starting the program. She [...] for type 1 diabetes. Author Katelyn Echavarria [facility] Authored August 28, 2024 10 :34am [...] our diabetic department and seeing her diabetic biological science aide Mariama. And her A1c is dropped from [...] and behavioral modification versus short-term dieting. Her [place] was 8 with starting the program. She [...] nurse practitioner for type 1 diabetes. [facility] Work Phone: 1([phone]) 493-198907-31-2024 Evaluation note* Author Apolinar Kelly [facility] Authored June 27, 2024 10:4 2am [...] our diabetic department and seeing her diabetic biological science aide Mariama. And her A1c is dropped from [...] and behavioral modification versus short-term dieting. Her [place] was 8 with starting the program. She [...] for type 1 diabetes. Author Maria Fernanda [facility] Authored August 21, 2024 3:36pm Highest weight: [...] our diabetic department and seeing her diabetic biological science aide Mariama. And her A1c is dropped from [...] and behavioral modification versus short-term dieting. Her [place] was 8 with starting the program. She [...] nurse practitioner for type 1 diabetes. [facility] Work Phone: 1([phone]) 247-368507-31-2024 Evaluation note* Author Apolinar Kelly [facility] Authored June 27, 2024 10:4 2am [...] our diabetic department and seeing her diabetic biological science aide Mariama. And her A1c is dropped from [...] and behavioral modification versus short-term dieting. Her [place] was 8 with starting the program. She [...] for type 1 diabetes. Author Apolinar Kelly [facility] Authored August 28, 2024 10 :57am [...] our diabetic department and seeing her diabetic biological science aide Mariama. And her A1c is dropped from [...] and behavioral modification versus short-term dieting. Her [place] was 8 with starting the program. She [...] nurse practitioner for type 1 diabetes. [facility] Work Phone: [phone]) 367-257206-18-2024 Evaluation note* Author Apolinar Kelly [facility] Authored May 15, 2024 10:1 5am [...] and behavioral modification versus short-term dieting. Her [place] was 8 with starting the program. She [...] for type 1 diabetes. Author Apolinar Kelly [facility] Authored June 27, 2024 10:4 2am [...] our diabetic department and seeing her diabetic biological science aide Mariama. And her A1c is dropped from [...] and behavioral modification versus short-term dieting. Her [place] was 8 with starting the program. She [...] nurse practitioner for type 1 diabetes. [facility] Work Phone: [phone]) 464-861706-04-2024 Miscellaneous Notes* Telephone Encounter - Jackie Jimenez - 05/01/2024 8:22 AM EDT ----- Message from Sherrill Carlin DO sent at 01/12/2024 6:45 PM EST ----- DM recheck * Telephone Encounter - Jackiesujata Jimenez - 05/01/2024 8:22 AM EDT Sent mychart msg * Telephone Encounter - Ajckiesujata Jimenez - 05/01/2024 8:22 AM EDT LM on VM * Telephone Encounter - Jackie Jimenez - 05/01/2024 8:22 AM EDT sending letter documented in this encounterWilson Health06-04-2024 Telephone encounter Note* Telephone Encounter - Jackiesujata Jimenez - 05/01/2024 8:22 AM EDT ----- Message from Sherrill Carlin DO sent at 01/12/2024 6:45 PM EST ----- DM recheck [facility]06-04-2024 Telephone encounter Note* Telephone Encounter - Jackiesujata Jimenez - 05/01/2024 8:22 AM EDT Sent mychart msg [facility]06-04-2024 Telephone encounter Note* Telephone Encounter - Jackie Jimenez - 05/01/2024 8:22 AM EDT LM on VM [employer] [id number] Telephone encounter Note* Telephone Encounter - Jackie Jimenez - 05/01/2024 8:22 AM EDT sending letter [employer] [id number] Evaluation note* Author Apolinar Kelly [facility] Authored April 03, 2024 12:57p m [...] and behavioral modification versus short-term dieting. Her [place] was 8 with starting the program. She [...] Our exercise program was recommended with our body shop floorperson/obesity exercise group. Handout given. Our free weekly [...] and benefits of prescribed meds discussed. Initial bldz-vk-lwtv interview/evaluation. The patient was counseled in detail on the options for weight loss in an individual setting. 65 minutes was spent caring for the patient, counseling/educating patient on the options for the treatment of obesity and related healthcare issues. The program's treatment goals were reviewed with the patient. Each aspect of the program was discussed with the patient. [facility] Work Phone: [phone]) 534-893005-07-2024 Evaluation note* Author Apolinar Kelly [facility] Authored April 03, 2024 12:57p m [...] and behavioral modification versus short-term dieting. Her [place] was 8 with starting the program. She [...] Our exercise program was recommended with our body shop floorperson/obesity exercise group. Handout given. Our free weekly [...] and benefits of prescribed meds discussed. Initial dkha-nd-qqib interview/evaluation. The patient was counseled in detail on the options for weight loss in an individual setting. 65 minutes was spent caring for the patient, counseling/educating patient on the options for the treatment of obesity and related healthcare issues. The program's treatment goals were reviewed with the patient. Each aspect of the program was discussed with the patient. Author Katelyn Echavarria [facility] Authored May 15, 2024 9:50 am [...] and behavioral modification versus short-term dieting. Her [place] was 8 with starting the program. She [...] nurse practitioner for type 1 diabetes. [facility] Work Phone: [phone]) [phone] Evaluation note* Author Apolinar Kelly [facility] Authored April 03, 2024 12:57p m [...] and behavioral modification versus short-term dieting. Her [place] was 8 with starting the program. She [...] Our exercise program was recommended with our body shop floorperson/obesity exercise group. Handout given. Our free weekly [...] and benefits of prescribed meds discussed. Initial akkc-uj-lhtd interview/evaluation. The patient was counseled in detail on the options for weight loss in an individual setting. 65 minutes was spent caring for the patient, counseling/educating patient on the options for the treatment of obesity and related healthcare issues. The program's treatment goals were reviewed with the patient. Each aspect of the program was discussed with the patient. Author Apolinar Kelly [facility] Authored May 15, 2024 10:1 5am [...] and behavioral modification versus short-term dieting. Her [place] was 8 with starting the program. She [...] for type 1 diabetes. Author Katelyn Echavarria [facility] Authored June 27, 2024 10:1 8am [...] and behavioral modification versus short-term dieting. Her [place] was 8 with starting the program. She [...] nurse practitioner for type 1 diabetes. [facility] Work Phone: 1([phone]) 349-804903-14-2024 NoteReliability was borderline. Progression has been stable. Findings include (Inferior>superior arcuate). Notes 24-2 TOP OSMANUALLY TRANSCRIBED [id number] NoteReliability was borderline. Progression has been stable. Findings include (Inferior>superior arcuate). Notes 24-2 TOP OSMANUALLY TRANSCRIBED [id number] History of Present illness Narrative* Sherrill Thakur [...] eye associated with type 2 diabetes mellitus ([facility]) E11.3552 4. 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 hovrn-jmjrd-9-bav-isv-kohfcy (KRILL OIL) 105-00-33-50 mg capsule Take by mouth. LOKELMA 5 gram packet MIX AND DRINK 1 PACKET TWO TIMES A WEEK pregabalin (LYRICA) 100 mg capsule TAKE 1 CAPSULE THREE TIMES A DAY clobetasoL (TEMOVATE) 0.05 % lotion clobetasol 0.05 % lotion (Patient not taking: Reported on 02/09/2024) dorzolamide-timoloL (COSOPT) 22.3-6.8 mg/mL ophthalmic solution Administer 1 drop into the left eyeevery 12 (twelve) hours. ipxhkjmag-U4-liK26-algal oil (FOLTANX RF/MENTAX) 3 mg-35 mg-2 mg -90.314 mg capsule Metanx (algal oil) 3 mg-35 mg-2 mg-90.314 mg capsule (Patient not taking: Reported on 02/09/2024) No current facility-administered medications for this visit. (Other) Ms. Dahl has a past medical history of H/O vitrectomy, Hypercholesteremia, S/P YAG capsulotomy, left, and Type 1 diabetes ([facility]). She has a past surgical [...] for and in the presence of Sherrill Thaukr II, MD by CHARLES Mcclendon. Provider Statement: I, Sherrill Thakur II, MD personally performed the services described in the documentation, as scribed by CHARLES Mcclendon in my presence, and it is both accurate and complete. documented in this encounterWilson Health03-14-2024 Instructions* Patient Instructions* Gabby Harrison 02/09/2024 8:10 [...] more? Glaucoma Research Foundation http://www.glaucoma.org/treatment/eyedrop-tips.php National Eye Lena https://www.nei.nih.gov/dmaij-tkyvd-bmk-health/mxa-hnljfousws-nit-diseases/glauc elizabeth/glaucoma-medicines/umb-dkp-xlg-drops Last Reviewed Date 2020-10-29 Consumer Information Use [...] or approved for treating a specific patient. [employer] and its affiliatesdisclaim any warranty or liability relating to this information or the use thereof. The use of thisinformation is governed by the Terms of Use, available at https://www.[employer].com/en/know/nedtuzqz-hotznqbuopokq-lmilr Copyright Copyright 2022 [employer] and its affiliates and/or licensors. All rights reserved. documented in this encounterBarney Children's Medical CenterFreight Connection [facility] [id number] Miscellaneous Notes* Telephone Encounter - Carey Nelson CMA - 01/30/2024 10:20 AM EST Spoke with patient regarding cologuard. Patient plans to complete soon. documented in this encounterWilson Health03-04-2024 Telephone encounter Note* Telephone Encounter - Carey Nelson CMA - 01/30/2024 10:20 AM EST Spoke with patient regarding cologuard. Patient plans to complete soon. [facility]02-15-2024 History of Present illness Narrative* Sherrill Carlin DO - 01/12/2024 9:20 AM EST IM PROGRESS NOTE Patient - Yuridia Dahl Age - 53 y.o. - 1970 ASSESSMENT & PLAN 1. 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 Stage 3a chronic kidney disease ([facility]) -microalbumin as above -on Lokelma intermittently, based on suspected potassium intake. -uses it if she has potatoes, tomatoes, etc. Subjective DIABETIC VISIT This is a follow up of a pre-existing problem. Patient self monitoring includes CGM. Uses tinyclues device which communicates with her insulin pump. [...] topically once a week., Disp: , Rfl: dkhhqoavx-I7-kkE45-algal oil (FOLTANX RF/MENTAX) 3 mg-35 mg-2 mg [...] a day as needed., Disp: , Rfl: xpzdx-otwwg-8-yhx-dbg-ltxpai (KRILL OIL) 149-97-12-50 mg capsule, Take by mouth., Disp: , [...] Testing No results found. Sherrill Carlin DO., [facility] Office: [phone] documented in this encounterWilson Health10-30-2023 Evaluation note* Encounter Date Diagnosis Assessment Notes [...] PCP for lipid profile and LFT monitoring Infogram Other [id number] NotePROCEDURE: XR KNEE RT 3V DATE: 03/17/2023 [...] evidence of significant abnormalities. Electronically authenticated by: IOVRY KING Date: 2023-03-17 10:50[facility]04-20-2023 NotePROCEDURE: XR HIP LT 2 3V [...] Electronically authenticated by: IVORY KING Date: 2023-03-17 10:48[facility]10-25-2022 Evaluation note* Encounter Date Diagnosis Assessment [...] GI work-up including a Cologuard or colonoscopy Infogram Other Evaluation noteNo assessment information available [facility] Work Phone: Evaluation note* Author Katelyn Echavarria [facility] Authored April 03, 2024 11:45a m [...] Our exercise program was recommended with our body shop floorperson/obesity exercise group. Handout given. Our free weekly [...] and benefits of prescribed meds discussed. Initial jtmo-pc-xjgu interview/evaluation. The patient was counseled in detail on the options for weight loss in an individual setting. [ ] minutes was spent caring for the patient, counseling/educating patient on the options for the treatment of obesity and related healthcare issues. The program's treatment goals were reviewed with the patient. Each aspect of the program was discussed with the patient. [facility] Work Phone: Evaluation note* Diagnosis Other atopic dermatitis Other seborrheic dermatitis EIC (epidermal inclusion cyst) Sebaceous cyst documented in this encounter [facility] HealthcareEvaluation note* Diagnosis Spinal stenosis of lumbar region with neurogenic claudication- Primary Osteoarthritis of right patellofemoral joint Mixed hyperlipidemia documented in this encounter [facility] Diagnosis Diabetic peripheral neuropathy ([facility]) Type II or unspecified type diabetes mellitus with neurological manifestations, not stated as uncontrolled [facility]* Diagnosis Chronic hyperkalemia Hyperpotassemia documented [facility]* Diagnosis Diabetic peripheral neuropathy (CMS-HCC) Type II or unspecified type diabetes mellitus with neurological manifestations, not stated as uncontrolled documented [facility]* Diagnosis 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 (CMS-HCC)- Primary Mixed hyperlipidemia Stage 3a chronic kidney disease (CMS-HCC) documented in [facility]* Diagnosis Primary open angle glaucoma [...] eye, indeterminate stage documented [facility]* Diagnosis Primary open angle glaucoma of left eye, indeterminate stage documented [facility]* Diagnosis Diabetic peripheral neuropathy (CMS-HCC) Type II or unspecified type diabetes mellitus with neurological manifestations, not stated as uncontrolled [facility]* Diagnosis Mixed hyperlipidemia [facility]* Diagnosis 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 ([facility])- Primary Anophthalmos of right eye Unspecified clinical anophthalmos Primary open angle glaucoma of left eye, indeterminate stage 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 (CMS-HCC) [facility]* Diagnosis 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 (CMS-HCC) documented in [facility] encounter [facility]* Diagnosis Mixed hyperlipidemia documented in [facility] encounter [facility]* Diagnosis Primary open angle [...] eye, indeterminate stage documented in [facility] encounter [facility]* Diagnosis Primary open angle glaucoma of left eye, indeterminate stage documented in this encounter [facility]* Diagnosis Mixed hyperlipidemia documented in [facility] encounter [facility]* Diagnosis Abnormal wellness exam- Primary Mixed hyperlipidemia At risk for coronary artery disease Encounter for screening mammogram for malignant neoplasm of breast 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 documented [facility]* Diagnosis Mixed hyperlipidemia [facility] SystemHistory general Narrative - Reported* Type [...] left eye cataract Hospitalization History As above Infogram Other InstructionsNot on filedocumented in this encounter [facility] [employer] SystemInstructionsNot on filedocumented in this encounter [facility] [employer] SystemInstructionsNot on filedocumented in this encounter [facility] [employer] SystemInstructionsNot on filedocumented in this encounter [facility] SystemInstructionsNot on filedocumented in this encounter [facility]Not on filedocumented in this encounter [facility] SystemInstructionsNot on filedocumented in this encounter [facility] System[facility]ructions* Attachments The following attachments cannot be sent through Care Everywhere. * Open-angle glaucoma (Slovak) documented in this encounterProMedica Health SystemInstructionsNot on file documented in this encounterProMedica Health SystemInstructionsNot on file documented in this encounterProOur [facility] SystemInstructions* Attachments The following attachments cannot be sent through Care Everywhere. * Postmeniscectomy Exercises Lying Down (Slovak) documented in this encounterPro[facility] SystemReason for referral (narrative)No reason for referral information availableSelect Medical Special[facility] Work Phone: Advance Directives Advance Directive Response Recorded Date/ Time Advance Directives No September 05, 2017 8:32am Advance Directive Response Recorded Date/ Time Advance Directives No September 05, 2017 9:32am Chief Complaint and Reason for Visit Chief Complaint E10.42 Chief Complaint See order Chief Complaint N18.30 E10.22 N25.[address] [facility] Chief Complaint [facility] Amb Documentation Amb Documentation Amb Documentation Amb Documentation Amb Documentation Diabetes ED and DL will f/u with TKM per DC Chief Complaint [facility] Amb Documentation Amb Documentation Amb Documentation Amb Documentation Amb Documentation Diabetes ED and DL will f/u with TKM per DC Type 1 per DC see TKM Reason for Visit BMI 29.0-29.9,adult Dietary counseling and surveillance Hyperlipidemia Insulin long-term use Insulin pump titration 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 Chief Complaint [facility] Amb Documentation Amb Documentation Amb Documentation Amb Documentation Amb Documentation Diabetes ED and DL will f/u with TKM per DC Type 1 per DC see TKM anti inflammatory eating Reason for Visit BMI 29.0-29.9,adult Dietary counseling and surveillance Hyperlipidemia Insulin long-term use Insulin pump titration 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 Chief Complaint [facility] Amb Documentation Amb Documentation Amb Documentation Amb Documentation Amb Documentation Diabetes ED and DL will f/u with TKM per DC Type 1 per DC see TKM anti inflammatory eating e10.22 n18.31 Reason for Visit BMI 29.0-29.9,adult Dietary counseling and surveillance Hyperlipidemia Insulin long-term use Insulin pump titration 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 Chief Complaint [facility] Amb Documentation Amb Documentation Amb Documentation Amb [...] CREATED AUTHOR AUTHOR'S ORGANIZ ATION 03/21/2023 [facility] DATE CREATED AUTHOR AUTHOR'S ORGANIZ ATION 01/14/2024 [facility] DATE CREATED AUTHOR AUTHOR'S ORGANIZ ATION 10/02/2024 [facility] EPIC DATE CREATED AUTHOR AUTHOR'S ORGANIZ ATION 06/21/2025 [facility] DATE CREATED AUTHOR AUTHOR'S ORGANIZ ATION 07/11/2025 [facility] Care Teams (unrecognized [...] October 09, 2024 End: October 09, 2024 Technical Aid Relationship Specialty Start Date End Date Sherrill Carlin DO [address] [facility] [place] [address] PCP - General Internal Medicine 08/24/21 Technical Aid Relationship Specialty Start Date End Date Sherrill Carlin DO [address] [facility] [place] [address] PCP - General Internal Medicine 08/24/21 Technical Aid Relationship Specialty Start Date End Date Sherrill Carlin DO [address] [facility] [place] [address] PCP - General Internal Medicine 08/24/21 Technical Aid Relationship Specialty Start Date End Date Sherrill Carlin DO [address] [facility] [place] [address] PCP - General Internal Medicine 08/24/21 Technical Aid Relationship Specialty Start Date End Date Sherrill Carlin DO [address] [facility] [place] [address] PCP - General Internal Medicine 08/24/21 Technical Aid Relationship Specialty Start Date End Date Sherrill Carlin DO [address] [facility] [place] [address] PCP - General Internal Medicine 08/24/21 Technical Aid Relationship Specialty Start Date End Date Sherrill Carlin DO [address] [place] [address] PCP - General Internal Medicine 08/24/21 Technical Aid Relationship Specialty Start Date End Date Sherrill Carlin DO [address] [place] [address] PCP - General Internal Medicine 08/24/21 Technical Aid Relationship Specialty Start Date End Date Sherrill Carlin DO [address] [place] [address] PCP - General Internal Medicine 08/24/21 Team [...] February 19, 2025 End: February 19, 2025 Technical Aid Relationship Specialty Start Date End Date Sherrill Carlin DO [address] [place] [address] PCP - General Internal Medicine 08/24/21 Technical Aid Relationship Specialty Start Date End Date Sherrill Carlin DO [address] [place] [address] PCP - General Internal Medicine 08/24/21 Technical Aid Relationship Specialty Start Date End Date Sherrill Carlin DO [address] [place] [address] PCP - General Internal Medicine 08/24/21 Technical Aid Relationship Specialty Start Date End Date Sherrill Carlin DO [address] [place] [address] PCP - General Internal Medicine 08/24/21 Team [...] BE BASED ON THE PRIMARY CLINICAL RECORDS. [employer] [facility]. provides no warranty or guarantee of the accuracy or completeness of information in this document.
== END 2025-09-03 10:21 | disposition home or self-care (01) ==
LOC: WC 10:21
PROVIDERS: PCP Internal Medicine; Visit Provider Physician Assistant
DX: E11.621 Type 2 diabetes mellitus with foot ulcer (principal); L97.422 Non-pressure chronic ulcer of left heel and midfoot with fat layer exposed
CPT/HCPCS: G0463